=== PATIENT | female | born 2000 | race Caucasian/White ===

== ENCOUNTER 2021-07-23 03:07 | Emergency (ER) | payer OTHER, SELFPAY ==
[2021-07-23 03:13] VITALS: BP 108/58; PULSE 99; RESP 16; TEMP 37.1; O2SAT 100
[2021-07-23] MEDS: LIDOCAINE HCL 2% VISC SOLN 15 ML UDC PO (04:09)
--- NOTE | 2021-07-23 04:22 | ED.GENADULT ---
HPI - General Adult General Chief complaint: Unspecified Stated complaint: THROAT SWELLING History of Present Illness HPI narrative: Patient is a 20-year-old female who presents ER with concerns for a swollen throat. She reports she has been having symptoms since 07/20/2021. She was seen at another hospital and told she had sinusitis and prescribed amoxicillin and ibuprofen. She has not taken any medication due to being concerned that she does not know what they are for. Symptoms are worse when she lays down flat causes her to cough. She has no fevers or chills or sweats. She is able to eat and drink and swallow without difficulty. She has has discomfort when swallowing. No sinus congestion. No known sick contacts. She was not tested for COVID. Related Data Allergies Allergy/AdvReac Type Severity Reaction Status Date / Time No Known Allergies Allergy Unverified 01/17/14 17:49 Review of Systems Review of Systems: All systems reviewed & are unremarkable except as noted in HPI and below Constitutional: Constitutional: Denies chills, Denies fever(s) and Denies weakness ENT: Denies nasal congestion and Denies sore throat Respiratory: Respiratory: Reports cough and Denies dyspnea Gastrointestinal: Gastrointestinal: Denies abdominal pain, Denies nausea and Denies vomiting Exam Narrative: GENERAL: Well-appearing, well-nourished, and in no acute distress. HEAD: Normocephalic, atraumatic. ENT: Mucous membranes moist. Normal-appearing posterior oropharynx without tonsillar hypertrophy or exudate. Uvula midline and nonedematous. NECK: Supple. CHEST: Clear to auscultation. No respiratory distress. HEART: Regular rate and rhythm. Normal peripheral pulses. EXTREMITIES: Normal range of motion. No edema. SKIN: Warm, dry, no rash. NEURO: Alert and oriented x3. Course Course Emergency Course: Resting comfortably. COVID and strep negative. Discharge home. Discussed supportive therapy. Vital Signs Vital signs: Vital Signs Temperature 98.7 F 07/23/21 03:13 Pulse Rate 99 07/23/21 03:13 Respiratory Rate 16 07/23/21 03:13 Blood Pressure 108/58 L 07/23/21 03:13 Pulse Oximetry 100 07/23/21 03:13 Temperature 98.7 F 07/23/21 03:13 Pulse Rate 99 07/23/21 03:13 Respiratory Rate 16 07/23/21 03:13 Blood Pressure 108/58 L 07/23/21 03:13 Pulse Oximetry 100 07/23/21 03:13 Medical Decision Making Vital Signs Vital Signs: Vital Signs Temperature 98.7 F 07/23/21 03:13 Pulse Rate 99 07/23/21 03:13 Respiratory Rate 16 07/23/21 03:13 Blood Pressure 108/58 L 07/23/21 03:13 Pulse Oximetry 100 07/23/21 03:13 Temperature 98.7 F 07/23/21 03:13 Pulse Rate 99 07/23/21 03:13 Respiratory Rate 16 07/23/21 03:13 Blood Pressure 108/58 L 07/23/21 03:13 Pulse Oximetry 100 07/23/21 03:13 Lab Data Labs: Lab Results 07/23/21 Range/Units 03:41 SARS-CoV-2 RNA (RT-PCR) Pending Strep Screen Presumptive Negative *(Reference Range: Negative)* Discharge Plan Discharge Clinical Impression: Upper respiratory infection Patient Disposition: Home, Self-Care Condition: Stable Instructions: Viral Syndrome (ED) Additional Instructions: Return the ER if she cannot breathe, you cannot keep down food or water, you lose consciousness, you have additional concerns. Follow-up/Referrals: María Andrade DO [Physician] - 1 Week PHYSICIAN,OFFICE MANAGER RECEPTIONIST [Primary Care Provider] -
[2021-07-23 04:25] LABS: SARS-CoV-2 RNA PCR Negative
[2021-07-23 04:50] VITALS: BP 120/77; PULSE 72; RESP 18; O2SAT 99
--- NOTE | 2021-07-23 08:11 | PCCCNOTE ---
Addendum entered by Abigail Ya RN 07/23/21 08:53: Phone call received at 0829 from professional development managerGERI Allan that she assisted in getting the car seat base/ car seat in the cab with the patient and they are en route via cab to home. Original Note: Called by cash van salespersonSanjana to assist patient with transportation. Met with patient, and her infant, she states that she has a home but has been trying to find transportation and no one is able to pick her up. Her infant is in a car seat with car seat base that could be connected to a vehicle. Patient feels comfortable with a cab. Called to [employer] cab to make sure they can transport the infant since the mom has the car seat base and car seat. Merchandising Representative states they can do that and they will be there in 20 minutes. Cab voucher written for [address] [place] [phone] per patient request given to cash van salespersonGERI Allan.
== END 2021-07-23 04:54 | disposition home or self-care (01) ==
PROVIDERS: Emergency Provider Emergency Medicine
DX: J06.9 Acute upper respiratory infection, unspecified (principal); Z20.822 Contact with and (suspected) exposure to COVID-19
CPT/HCPCS: 87081; 87880; 99283; C9803; U0003; U0005

== ENCOUNTER 2022-04-06 19:45 | Observation (INO) | payer OTHER, SELFPAY ==
--- NOTE | 2022-04-06 19:50 | OBADM ---
This patient, Davida Juan, admitted to the OB room [facility] for observation. Patient/family oriented to hospital policies and general routines including ID bracelet, bed and alarms, visiting hours, pain management, procedures, bathroom and other care routines, personal items, smoking policy, room service/diet, and visiting hours. Patient/Family are encouraged to report perceived risks to care and to ask questions if they do not understand what they are told or what they should do.
[2022-04-06 20:00] VITALS: BMI 28.3
[2022-04-06 20:15] VITALS: BP 104/53; PULSE 92
[2022-04-06 20:20] LABS: Appearance Urine Cloudy (Clear); Bilirubin Urine Negative (Negative); Blood Urine Trace-intact (Negative); Color Urine Yellow (Yellow); Glucose Urine UA Negative (Negative); Ketones Urine Negative (Negative); Leukocyte Esterase Ur Negative LEU/UL (NEGATIVE); Nitrate Urine Negative (Negative); Protein Urine Negative (Negative); Urobilinogen Urine 0.2 mg/dL (<2.0); pH Urine 8.5 (5.0-9.0)
[2022-04-06 20:30] VITALS: BP 73/46; PULSE 93
--- NOTE | 2022-04-06 20:35 | PC.NURSE ---
Patient requesting to to be checked. Explained to patient that we will only check with a MD order or if patient is having regular contractions. Patient states that she checked herself and she felt like her cervix is open. Discussed the risks for patient checking herself. Patient verb understanding.
[2022-04-06 20:36] LABS: Amorphous Sediment Urine Few; Bacteria Urine Trace /hpf; Squamous Epithelial Cell Urine Many /hpf (Few)
[2022-04-06 20:38] LABS: Add Urine Microscopic? YES
[2022-04-06 20:45] VITALS: BP 102/55; PULSE 89
--- NOTE | 2022-04-27 10:42 | P.PNOB_ITS ---
OB - Triage/Final Diagnosis Visit Information Comments/Additional reasons for admission: I have assessed the risk for this patient, Davida Juan, and determined that she would benefit from observation care. Evaluation Laboratory results: Laboratory Tests 04/06/22 20:11 Urine Color Yellow Urine Appearance Cloudy H Urine pH 8.5 Ur Specific [place] 1.020 Urine Protein Negative Urine Glucose (UA) Negative Urine Ketones Negative Ur Blood (Man) Trace-intact Urine Nitrate Negative Urine Bilirubin Negative Urine Urobilinogen 0.2 Ur Leukocyte Esterase Negative Urine RBC 6-10 H Urine WBC 7-9 H Ur Squamous Epith Cells Many H Amorphous Sediment Few H Urine Bacteria Trace Final Diagnosis (1) False labor: Code(s): O47.9 - False labor, unspecified Status: Acute
== END 2022-04-06 21:08 | disposition home or self-care (01) ==
PROVIDERS: Advanced Practice Midwife; Admitting Provider Obstetrics & Gynecology; Visit Provider Obstetrics & Gynecology
DX: O47.1 False labor at or after 37 completed weeks of gestation (principal); O26.892 Other specified pregnancy related conditions, second trimester; M54.9 Dorsalgia, unspecified; Z3A.27 27 weeks gestation of pregnancy
CPT/HCPCS: 81001; 87086; 87088; G0378; G0379

== ENCOUNTER 2022-09-14 00:54 | Emergency (ER) | payer OTHER, SELFPAY ==
--- NOTE | ~2022-09-14 | XR_ITS ---
Clinical Indication: Chest pain PA and lateral views of the chest: Comparison: None Findings: The lungs are clear, without evidence of focal consolidation or pleural effusion. Cardiome diastinal silhouette is within normal limits. Bones and soft tissues are unremarkable. Impression: Normal chest. Reviewed, dictated and finalized at location . Impression: Normal chest.
[2022-09-14 00:56] VITALS: BP 111/45; PULSE 78; RESP 16; TEMP 36.4; O2SAT 99
--- NOTE | 2022-09-14 00:59 | ECG_ITS ---
Measurements Intervals [place] Rate: 70 P: 46 DC: 149 QRS: 63 QRSD: 91 T: 37 QT: 390 QTc: 422 Interpretive Statements SINUS RHYTHM WITH SINUS ARRHYTHMIA NORMAL ECG NO PREVIOUS ECG AVAILABLE FOR COMPARISON Electronically Signed On 09-14-2022 10:26:12 CDT by Hector Easley M.D.
[2022-09-14 01:06] VITALS: PULSE 72; PULSE 74; RESP 20; TEMP 36.3; O2SAT 100; O2SAT 98
[2022-09-14 01:35] VITALS: BP 104/58; PULSE 61; RESP 20; O2SAT 100
--- NOTE | 2022-09-14 01:38 | ED.CHESTPAIN ---
HPI - Chest Pain General Chief Complaint: Chest Pain Stated Complaint: chest pain Time Seen by Provider: 09/14/22 01:00 Source: patient, RN notes reviewed and old records reviewed Mode of arrival: ambulatory Limitations: no limitations History of Present Illness HPI narrative: This is a 21 year old female 2 months who presents for evaluation of chest pain and shortness of breath. She reports having chest pain for 1 week. She describes pain as sharp pain that worsen with breathing. She also reports having chest pain on inspiration. She feels short of breath as well because she has pain with taking a deep breath. She denies history of DVT/PE. She denies leg swelling. She denies fever, chills. Related Data Allergies Allergy/AdvReac Type Severity Reaction Status Date / Time No Known Allergies Allergy Verified 09/14/22 00:55 Review of Systems Constitutional: Constitutional: Denies weakness Cardiovascular: Cardiovascular: Reports chest pain, Denies syncope, Denies rapid heart rate, Denies irregular heart rhythm, Denies leg edema and Reports dyspnea Respiratory: Respiratory: Denies chest congestion, Denies hemoptysis, Denies excessive phlegm production and Reports dyspnea Gastrointestinal: Gastrointestinal: Denies abdominal pain, Denies hematochezia, Denies diarrhea and Denies vomiting Genitourinary: Genitourinary: Denies hematuria and Denies dysuria Musculoskeletal: Musculoskeletal: Denies joint swelling, Denies loss of height and Denies muscle weakness Neurologic: Denies syncope, Denies focal weakness and Denies weakness PMFSH Past Medical History Medical History (Updated 09/14/22 @ 02:48 by Marina Campbell MD) Patient denies medical problems Social History Social History (Updated 09/14/22 @ 01:39 by Marina Campbell MD) Smoking packs per day: 0.5 Smoking cigarettes per day: 10.0 Smoking status: Current every day smoker Exam Const: General: no acute distress and alert Nutritional Appearance: well nourished Orientation/consciousness: patient oriented x3 HENMT: Head: normal to inspection Throat: posterior oropharynx normal Eyes: EOM: EOMs intact bilaterally Neck: Neck: normal visual inspection Chest: Chest palpation & inspection: tenderness sternum and costochondral junction Resp: Effort & Inspection: normal respiratory effort Auscultation: clear to auscultation bilaterally Cardio: Rate: regular rate Rhythm: regular rhythm Heart sounds: no murmurs GI: GI Palp: Yes Soft to palpation, No Tenderness to palpation present (GI), No Guarding due to palpation present (GI) and No Rigid due to palpation Auscultation: normal bowel sounds Skin: General skin exam: normal color Rashes: no rashes Wounds: no wounds Neuro: General: patient oriented x3, moves all extremities and CN's II-XI intact bilaterally Extrem: General: normal to inspection Psych: Mental Status: mental status grossly normal Affect: normal affect Attitude: cooperative Course Reevaluation(s) Reevaluation #1: I Discussed with patient that labs are unremarkable. dimer is negative. She refused toradol. I discussed with patient that her symptoms appear to be chest wall related and treatment would be NSAIDS. she states she can take NSAIDS but she does not like taking medications. Date: 09/14/22 Time: 02:45 Vital Signs Vital signs: Vital Signs Temperature 97.6 F 09/14/22 00:56 Pulse Rate 78 09/14/22 00:56 Respiratory Rate 16 09/14/22 00:56 Blood Pressure 111/45 L 09/14/22 00:56 Pulse Oximetry 99 09/14/22 00:56 Oxygen Delivery Room Air 09/14/22 00:56 Temperature 98.1 F 09/14/22 03:01 Pulse Rate 62 09/14/22 03:01 Respiratory Rate 16 09/14/22 03:01 Blood Pressure 107/49 L 09/14/22 03:01 Pulse Oximetry 100 09/14/22 03:01 Oxygen Delivery Room Air 09/14/22 01:06 MDM - Chest Pain MDM Narrative Medical decision making narrative: EKG ordered. chest xray ordered. lab
--- NOTE | 2022-09-14 01:46 | PC.NURSE ---
Patient refused Toradol and states I was told by staff at [facility] that this could kill me with GI issues .
[2022-09-14 01:53] LABS: Basophils Percent Auto 0.5 % (0.2-1.2); Eosinophils Absolute Auto 0.2 K/mm3 (0-0.3); Eosinophils Percent Auto 2.5 % (0-4.4); Hematocrit 33.7 % (37.0-47.0); Hemoglobin 10.7 g/dL (12.0-15.0); Immature Granulocyte Absolute 0.02 K/mm3 (0.00-0.031); Immature Granulocyte Percent A 0.3 % (0-0.5); Mean Corpuscular HGB Conc 31.8 g/dl (32-36); Mean Corpuscular Hemoglobin 25.9 pg (26-34); Mean Corpuscular Volume 81.6 fl (80-100); Mean Platelet Volume 11.1 fl (7.4-10.4); Monocytes Absolute Auto 0.6 K/mm3 (0.1-0.6); Neutrophils Absolute Auto 3.8 K/mm3 (1.3-6.7); Neutrophils Percent Auto 47.7 % (45.5-73.1); Platelet Count Result 347 k/mm3 (150-375); Red Blood Count 4.13 M/mm3 (4.2-5.4); Red Cell Distribution Width 14.9 % (11.5-14.5); White Blood Count 7.9 K/mm3 (4.5-10.0)
[2022-09-14 02:04] LABS: Alanine Aminotransferase 21 U/L (6-35); Albumin Level 4.1 g/dL (3.5-5.1); Alkaline Phosphatase 69 U/L (38-126); Anion Gap 8 mmol/L (8-16); Aspartate Amino Transferase 23 U/L (14-36); Bilirubin,Total 0.2 mg/dL (0.2-1.3); Blood Urea Nitrogen 19 mg/dL (7-17); Calcium 8.8 mg/dL (8.4-10.2); Carbon Dioxide 24 mmol/L (22-30); Chloride 105 mmol/L (98-107); Estimated CRCL calculation 106 ml/min; Estimated Glomerular Filt Rate > 60; Glucose 82 mg/dL (65-110); Lipase 41 U/L (23-300); Potassium 3.6 mmol/L (3.4-5.0); Sodium 137 mmol/L (137-145)
[2022-09-14 02:06] LABS: Partial Thromboplastin Time 30.7 SECONDS (22.3-36.8); Prothrombin Time 13.6 Seconds (11.1-14.7)
[2022-09-14 02:15] LABS: Troponin I < 0.012 ng/mL (0.000-0.034)
[2022-09-14 02:27] LABS: D Dimer < 0.27 ug/mL (<0.48)
[2022-09-14 03:01] VITALS: BP 107/49; PULSE 62; RESP 16; TEMP 36.7; O2SAT 100
--- NOTE | 2022-09-14 09:15 | PCCCNOTE ---
Phone call received from charge auditor that patient has not been able to secure a ride and is asking to speak with care coordination. Met with patient in ER family services room. She states that her ride would not pickling operator the facebook messenger call, she does not have a phone number for that person. She calls to a family member who cannot pick her up. Patient has her and toddler in the family services room with her and they are sleeping. She declined bus tokens from the tankage supervisor since the stop is not near her house and she would have to carry both of the kids and their carseats. Patient does not have any money to pay for a cab. Cab voucher written with address verbalized by patient and confirmed with patient. [employer] cab called and will be at [place] in 20 minutes.
== END 2022-09-14 03:02 | disposition home or self-care (01) ==
PROVIDERS: Emergency Provider General Practice; PCP Internal Medicine Infectious Disease
DX: R07.89 Other chest pain (principal); F17.210 Nicotine dependence, cigarettes, uncomplicated
CPT/HCPCS: 36415; 71046; 80053; 83690; 84484; 85025; 85380; 85610; 85730; 93005; 96374; 99284; J1885

== ENCOUNTER 2023-03-11 00:11 | Emergency (ER) | payer OTHER, SELFPAY ==
[2023-03-11 00:12] VITALS: BP 118/72; PULSE 114; RESP 16; TEMP 37
[2023-03-11 00:30] VITALS: BP 112/69; BP 116/69; BP 124/68; PULSE 81; PULSE 82
[2023-03-11 01:26] LABS: Beta HCG Quantitative < 2.39 mIU/ML
--- NOTE | 2023-03-11 01:36 | ED.FEMALEGU ---
HPI - Female Genitourinary General Chief complaint: Vaginal Bleeding <Griselda Lazar PA-C - Last Filed: 03/13/23 17:07> Stated complaint: vaginal bleeding <TANIA Lindsay Last Filed: 03/13/23 17:07> Time Seen by Provider: 03/11/23 01:11 <Griselda Lazar PA-C - Last Filed: 03/13/23 17:07> Source: patient <TANIA Lindsay Last Filed: 03/13/23 17:07> Mode of arrival: EMS <TANIA Lindsay Last Filed: 03/13/23 17:07> Limitations: no limitations <TANIA Lindsay Last Filed: 03/13/23 17:07> History of Present Illness HPI Narrative: This is a 22 year old female that presents to the ER for abnormal uterine bleeding. Ongoing over the last several months. Reports frequent periods. She is not on any control. She would like to be tested for STDs. Denies fever, dysuria or hematuria. <Griselda Lazar PA-C - Last Filed: 03/13/23 17:07> Related Data Allergies/Adverse reactions: Allergies Allergy/AdvReac Type Severity Reaction Status Date / Time No Known Allergies Allergy Verified 09/14/22 00:55 <Griselda Lazar PA-C - Last Filed: 03/13/23 17:07> Review of Systems Review of Systems: CONSTITUTIONAL: Denies fever GASTROINTESTINAL: Denies abdominal pain, nausea, vomiting GENITOURINARY: Denies dysuria or hematuria. SKIN: Denies rash <Griselda Lazar PA-C - Last Filed: 03/13/23 17:07> All systems reviewed & are unremarkable except as noted in HPI and below <Griselda Lazar PA-C - Last Filed: 03/13/23 17:07> [facility] Past Medical History Medical History: Medical History (Updated 03/12/23 @ 00:00 by Background Daemon) Patient denies medical problems <TANIA Lindsay Last Filed: 03/13/23 17:07> Social History Social History: Social History (Updated 09/14/22 @ 01:39 by Marina Campbell MD) Smoking packs per day: 0.5 Smoking cigarettes per day: 10.0 Smoking status: Current every day smoker <Griselda Lazar PA-C - Last Filed: 03/13/23 17:07> Exam Narrative: GENERAL: Well-appearing, well-nourished, and in no acute distress. HEAD: Normocephalic, atraumatic. EYES: EOMI. CHEST: Clear to auscultation. No respiratory distress. No wheezes rales or rhonchi HEART: Regular rate and rhythm. No murmur heard. Normal peripheral pulses. ABDOMEN: Soft, nontender, nondistended, normal active bowel sounds. EXTREMITIES: Normal range of motion. No edema. SKIN: Warm, dry, no rash. NEURO: No focal deficits. Alert and oriented x3. PSYCH: Normal mood and affect PELVIC: Normal external genitalia. Normal appearing cervix. Small amount of dark red blood in the vaginal vault <Griselda Lazar PA-C - Last Filed: 03/13/23 17:07> Course Course Emergency Course: Patient updated on her workup and agrees with plan of care <Griselda Lazar PA-C - Last Filed: 03/13/23 17:07> Vital Signs Vital signs: Vital Signs Temperature 98.6 F 03/11/23 00:12 Pulse Rate 114 H 03/11/23 00:12 Respiratory Rate 16 03/11/23 00:12 Blood Pressure 118/72 03/11/23 00:12 Oxygen Delivery Room Air 03/11/23 00:12 Temperature 98.3 F 03/11/23 04:34 Pulse Rate 68 03/11/23 04:34 Respiratory Rate 15 03/11/23 04:34 Blood Pressure 126/76 03/11/23 04:34 Pulse Oximetry 100 03/11/23 04:34 Oxygen Delivery Room Air 03/11/23 00:12 <Griselda Lazar PA-C - Last Filed: 03/13/23 17:07> Vital Signs Temperature 98.6 F 03/11/23 00:12 Pulse Rate 114 H 03/11/23 00:12 Respiratory Rate 16 03/11/23 00:12 Blood Pressure 118/72 03/11/23 00:12 Oxygen Delivery Room Air 03/11/23 00:12 Temperature 98.3 F 03/11/23 04:34 Pulse Rate 68 03/11/23 04:34 Respiratory Rate 15 03/11/23 04:34 Blood Pressure 126/76 03/11/23 04:34 Pulse Oximetry 100 03/11/23 04:34 Oxygen Delivery Room Air 03/11/23 00:12 <Robert Brand MD - Last Filed: 03/11/23 04:23> MDM - Female Genitourinary MDM
[2023-03-11 01:47] LABS: Basophils Absolute Auto 0.1 K/mm3 (0.0-0.1); Basophils Percent Auto 0.5 % (0.2-1.2); Eosinophils Absolute Auto 0.2 K/mm3 (0-0.3); Eosinophils Percent Auto 2.2 % (0-4.4); Hematocrit 37.2 % (37.0-47.0); Hemoglobin 11.6 g/dL (12.0-15.0); Immature Granulocyte Absolute 0.05 K/mm3 (0.00-0.031); Immature Granulocyte Percent A 0.5 % (0-0.5); Lymphocytes Absolute Auto 2.69 K/mm3 (0.9-3.2); Lymphocytes Percent Auto 27.7 % (18.3-44.2); Mean Corpuscular HGB Conc 31.2 g/dl (32-36); Mean Corpuscular Volume 83.2 fl (80-100); Mean Platelet Volume 10.3 fl (7.4-10.4); Monocytes Absolute Auto 0.7 K/mm3 (0.1-0.6); Monocytes Percent Auto 7.5 % (2.6-8.5); Neutrophils Percent Auto 61.6 % (45.5-73.1); Platelet Count Result 308 k/mm3 (150-375); Red Blood Count 4.47 M/mm3 (4.2-5.4); White Blood Count 9.7 K/mm3 (4.5-10.0)
[2023-03-11 02:17] VITALS: BP 125/69; PULSE 68; RESP 15; TEMP 36.6; O2SAT 99
[2023-03-11 02:48] LABS: Appearance Urine Turbid (Clear); Color Urine Light Red (Yellow)
[2023-03-11 02:49] LABS: Bilirubin Urine 1+ (Negative); Blood Urine 3+ (Negative); Glucose Urine UA Negative (Negative); Ketones Urine Negative (Negative); Leukocyte Esterase Ur 1+ LEU/UL (Negative); Nitrate Urine Negative (Negative); Protein Urine 1+ mg/dL (Negative); Specific Grav Ur 1.023 (1.001-1.035); Urobilinogen Urine 0.2 mg/dL (<2.0)
[2023-03-11 02:50] LABS: RBC Urine >100 /hpf (0-2)
[2023-03-11 02:51] LABS: Bacteria Urine Trace /hpf; Non Pathogenic Casts Present; Squamous Epithelial Cell Urine Occasional /hpf (Few)
[2023-03-11 02:51] LABS: Trichomonas Vag PCR NOT DETECTED (NOT DETECTE)
[2023-03-11 02:52] LABS: Add Urine Microscopic? YES
[2023-03-11 04:19] LABS: Chlamydia trachomatis NOT DETECTED (NOT DETECTE); Neisseria gonorrhoeae PCR NOT DETECTED (NOT DETECTE)
[2023-03-11 04:34] VITALS: BP 126/76; PULSE 68; RESP 15; TEMP 36.8; O2SAT 100
== END 2023-03-11 04:35 | disposition home or self-care (01) ==
PROVIDERS: Emergency Medicine; Emergency Provider Physician Assistant; PCP Internal Medicine Infectious Disease
DX: N93.8 Other specified abnormal uterine and vaginal bleeding (principal); F17.210 Nicotine dependence, cigarettes, uncomplicated
CPT/HCPCS: 36415; 81001; 84702; 85025; 86850; 86900; 86901; 87070; 87086; 87491; 87591; 87661; 99284

== ENCOUNTER 2023-03-15 00:27 | Emergency (ER) | payer OTHER, SELFPAY ==
[2023-03-15 00:26] VITALS: BP 127/71; PULSE 99; RESP 19; TEMP 36.6; O2SAT 100
[2023-03-15 00:32] VITALS: BP 127/71; PULSE 99; RESP 18; TEMP 36.6; O2SAT 100
[2023-03-15 01:08] LABS: Basophils Percent Auto 0.5 % (0.2-1.2); Eosinophils Absolute Auto 0.2 K/mm3 (0-0.3); Eosinophils Percent Auto 2.5 % (0-4.4); Hematocrit 36.9 % (37.0-47.0); Hemoglobin 11.6 g/dL (12.0-15.0); Immature Granulocyte Absolute 0.04 K/mm3 (0.00-0.031); Immature Granulocyte Percent A 0.5 % (0-0.5); Lymphocytes Absolute Auto 2.78 K/mm3 (0.9-3.2); Lymphocytes Percent Auto 33.7 % (18.3-44.2); Mean Corpuscular HGB Conc 31.4 g/dl (32-36); Mean Corpuscular Hemoglobin 26.2 pg (26-34); Mean Corpuscular Volume 83.3 fl (80-100); Mean Platelet Volume 10.3 fl (7.4-10.4); Monocytes Absolute Auto 0.4 K/mm3 (0.1-0.6); Monocytes Percent Auto 5.3 % (2.6-8.5); Neutrophils Absolute Auto 4.7 K/mm3 (1.3-6.7); Neutrophils Percent Auto 57.5 % (45.5-73.1); Platelet Count Result 311 k/mm3 (150-375); Red Blood Count 4.43 M/mm3 (4.2-5.4); Red Cell Distribution Width 14.3 % (11.5-14.5); White Blood Count 8.3 K/mm3 (4.5-10.0)
--- NOTE | 2023-03-15 01:58 | ED.GENADULT ---
HPI - General Adult General Chief complaint: Vaginal Bleeding Stated complaint: VAG BLEED, DIZZY Time Seen by Provider: 03/15/23 01:34 History of Present Illness HPI narrative: Patient 20-year-old female who presents emergency department with chief complaint of vaginal bleeding. The patient reports that she has been having bleeding for several weeks reports that she has blood that comes out whenever she stands up and reports that she has passed some clots. Patient reports that whenever she stands up she does saturate a pad and then has to change the pad. The patient reports that she has been seen in the emergency department that both [facility] and our facility and is concerned that she may have been and is still bleeding even though she has had negative test. Related Data Allergies Allergy/AdvReac Type Severity Reaction Status Date / Time No Known Allergies Allergy Verified 09/14/22 00:55 Review of Systems Review of Systems: A 10 system review of systems was completed on the patient and is negative except for what is stated in the HPI. Nursing and ancillary documentation was reviewed. [facility] Past Medical History Medical History Patient denies medical problems Social History Social History Smoking packs per day: 0.5 Smoking cigarettes per day: 10.0 Smoking status: Current every day smoker Exam Narrative: GENERAL: Well-appearing, well-nourished, and in no acute distress. HEAD: Normocephalic, atraumatic. EYES: PERRLA and EOMI. ENT: Nares clear, no rhinorrhea or epistaxis. Mucous membranes moist. NECK: Supple. CHEST: Clear to auscultation. No respiratory distress. HEART: Regular rate and rhythm. No murmur heard. Normal peripheral pulses. ABDOMEN: Soft, nontender, nondistended, normal active bowel sounds. EXTREMITIES: Normal range of motion. No edema. SKIN: Warm, dry, no rash. NEURO: No focal deficits. Alert and oriented x3. PSYCH: Normal mood and affect. Course Vital Signs Vital signs: Vital Signs Temperature 36.6 C 03/15/23 00:26 Pulse Rate 99 03/15/23 00:26 Respiratory Rate 19 03/15/23 00:26 Blood Pressure 127/71 03/15/23 00:26 Pulse Oximetry 100 03/15/23 00:26 Oxygen Delivery Room Air 03/15/23 00:26 Temperature 36.6 C 03/15/23 00:32 Pulse Rate 99 03/15/23 00:32 Respiratory Rate 18 03/15/23 00:32 Blood Pressure 127/71 03/15/23 00:32 Pulse Oximetry 100 03/15/23 00:32 Oxygen Delivery Room Air 03/15/23 00:26 Medical Decision Making MDM Narrative Medical decision making narrative: Differential diagnosis includes dysfunctional uterine bleeding, menorrhagia, anemia, miscarriage, Laboratory studies were obtained on the patient patient had a bedside test that was negative in the emergency department CBC was performed which showed a white count of 8.3 hemoglobin was 11.6 platelet count was 311. Patient had no bands The patient's hemoglobin was compared to her previous visit which was unchanged. At this time the patient can be discharged home to follow-up with her radiator core tester Vital Signs Vital Signs: Vital Signs Temperature 36.6 C 03/15/23 00:26 Pulse Rate 99 03/15/23 00:26 Respiratory Rate 19 03/15/23 00:26 Blood Pressure 127/71 03/15/23 00:26 Pulse Oximetry 100 03/15/23 00:26 Oxygen Delivery Room Air 03/15/23 00:26 Temperature 36.6 C 03/15/23 00:32 Pulse Rate 99 03/15/23 00:32 Respiratory Rate 18 03/15/23 00:32 Blood Pressure 127/71 03/15/23 00:32 Pulse Oximetry 100 03/15/23 00:32 Oxygen Delivery Room Air 03/15/23 00:26 Lab Data 03/15/23 00:56 Labs: Lab Results 03/15/23 Range/Units 00:56 WBC 8.3 (4.5-10.0) K/mm3 RBC 4.43 (4.2-5.4) M/mm3 Hgb 11.6 L (12.0-15.0) g/dL Hct 36.9 L (37.0-47.0) % MCV 8
== END 2023-03-15 02:05 | disposition home or self-care (01) ==
PROVIDERS: Physician Assistant; Emergency Provider Emergency Medicine; PCP Internal Medicine Infectious Disease
DX: N93.8 Other specified abnormal uterine and vaginal bleeding (principal); F17.210 Nicotine dependence, cigarettes, uncomplicated
CPT/HCPCS: 36415; 81025; 85025; 99283

== ENCOUNTER 2023-03-22 16:17 | Emergency (ER) | payer OTHER, SELFPAY ==
[2023-03-22 17:02] VITALS: BP 123/63; PULSE 97; RESP 18; TEMP 36.2; O2SAT 99
--- NOTE | 2023-03-22 17:26 | ED.URI ---
HPI - URI/Sore Throat General Chief Complaint: Upper Respiratory Infection Stated Complaint: Left Ear Irritation Time Seen by Provider: 03/22/23 17:30 Source: patient and RN notes reviewed Mode of arrival: ambulatory Limitations: no limitations History of Present Illness HPI Narrative: 22-year-old female presents with multiple concerns. She reports she has had chronic sinus issues, she was taking Augmentin in February for sinus infection, it did not help her symptoms. She reports her primary doctor is sending her to see ENT, she has an appointment next week. She reports she ?needs something for the pain before then?. She also reports foul-smelling vaginal discharge. She denies abdominal pain or vaginal itching. She reports she had been on medication for bacterial vaginosis in February and when she was prescribed an antibiotic for sinusitis she stops taking the medication for bacterial vaginosis. MD elicited complaint: sinus pain Related Data Allergies Allergy/AdvReac Type Severity Reaction Status Date / Time No Known Allergies Allergy Verified 03/22/23 16:59 Review of Systems Review of Systems: CONSTITUTIONAL: Denies malaise, chills, sweats, or fever. EYES: Denies visual changes, redness, or discharge. ENT: Reports rhinorrhea, congestion, sinus pain, otalgia CARDIOVASCULAR: Denies chest pain, palpitations, or edema. RESPIRATORY: Denies cough. Denies dyspnea. GASTROINTESTINAL: Denies abdominal pain, nausea, vomiting, diarrhea SKIN: Denies rash or itching. MUSCULOSKELETAL: Denies myalgia. NEUROLOGIC: Denies headache. All systems reviewed & are unremarkable except as noted in HPI and below PMFSH Past Medical History Medical History Patient denies medical problems Social History Social History Smoking packs per day: 0.5 Smoking cigarettes per day: 10.0 Smoking status: Current every day smoker Comments At time of signature, agree with nursing past medical, surgical, social and family history. There is no relevant family history pertinent to the presenting complaint Exam Narrative: GENERAL: Well-appearing, well-nourished, and in no acute distress. HEAD: Normocephalic EYES: PERRLA, conjunctivae clear ENT: Nares clear, turbinates erythematous, no discharge noted. Mucous membranes moist. TM pearly lenz with dull light reflex bilaterally; no tragal tenderness. Oropharynx not erythematous without lesions. Tonsils not enlarged and without exudate, no drooling, no hoarseness, no trismus, uvula midline. NECK: Supple. No lymphadenopathy CHEST: Clear to auscultation, breath sounds equal. No wheezing, rhonchi, rales, or stridor. No respiratory distress, speaks in full sentences. HEART: Regular rate and rhythm. No murmur heard. SKIN: Warm, dry, no rash. NEURO: Alert and oriented x3. PSYCH: Normal mood and affect Course Course Emergency Course: Patient is aware of diagnosis, understands and agrees to treatment plan. Anticipatory guidance given. Patient agrees to follow-up as directed and is aware of reasons to seek care at the emergency department. Portions of this record may have been created with voice recognition software Level of Care: Express Care Visit Vital Signs Vital signs: Vital Signs Temperature 97.2 F L 03/22/23 17:02 Pulse Rate 97 03/22/23 17:02 Respiratory Rate 18 03/22/23 17:02 Blood Pressure 123/63 03/22/23 17:02 Pulse Oximetry 99 03/22/23 17:02 Oxygen Delivery Room Air 03/22/23 17:02 Temperature 97.2 F L 03/22/23 17:02 Pulse Rate 97 03/22/23 17:02 Respiratory Rate 18 03/22/23 17:02 Blood Pressure 123/63 03/22/23 17:02 Pulse Oximetry 99 03/22/23 17:02 Oxygen Delivery Room Air 03/22/23 17:02 Reviewed. MDM - URI/Sore Throat MDM Narrative Medical decision making narrative: Differential diagnosis considered: Ybarra virus, s
== END 2023-03-22 17:50 | disposition home or self-care (01) ==
PROVIDERS: Emergency Provider Nurse Practitioner; PCP Internal Medicine Infectious Disease
DX: J34.89 Other specified disorders of nose and nasal sinuses (principal); N89.8 Other specified noninflammatory disorders of vagina; F17.210 Nicotine dependence, cigarettes, uncomplicated
CPT/HCPCS: 99213; G0463

== ENCOUNTER 2023-05-05 19:45 | Emergency (ER) | payer OTHER, SELFPAY ==
--- NOTE | ~2023-05-05 | XR_ITS ---
EXAMINATION: XR chest 1V portable Exam Date/Time: 05/05/2023 21:29 CDT HISTORY: cough Comparison: 09/14/2022. RESULT: Lines, tubes, and devices: None. Lungs and pleura: Clear. Cardiomediastinal silhouette: Stable. Other: No acute osseous or upper abdominal finding. IMPRESSION: No acute cardiopulmonary process. Reviewed, dictated and finalized at location K.
[2023-05-05 19:42] VITALS: BP 115/69; PULSE 80; RESP 16; TEMP 36.9; O2SAT 100
[2023-05-05 19:48] VITALS: BP 115/69; PULSE 88; PULSE 89; RESP 15; TEMP 36.9; O2SAT 100
--- NOTE | 2023-05-05 19:52 | ECG_ITS ---
Measurements Intervals [place] Rate: 77 P: 61 RI: 146 QRS: 76 QRSD: 94 T: 53 QT: 377 QTc: 429 Interpretive Statements SINUS RHYTHM WITH SINUS ARRHYTHMIA NORMAL ECG COMPARED TO ECG 09/14/2022 01:05:59 NO SIGNIFICANT CHANGES Electronically Signed On 05-06-2023 6:24:03 CDT by Damien Mccarthy D.O.
[2023-05-05 20:00] LABS: Basophils Percent Auto 0.6 % (0.2-1.2); Eosinophils Absolute Auto 0.2 K/mm3 (0-0.3); Hematocrit 33.7 % (37.0-47.0); Hemoglobin 10.4 g/dL (12.0-15.0); Immature Granulocyte Absolute 0.02 K/mm3 (0.00-0.031); Immature Granulocyte Percent A 0.4 % (0-0.5); Lymphocytes Absolute Auto 1.46 K/mm3 (0.9-3.2); Lymphocytes Percent Auto 27.8 % (18.3-44.2); Mean Corpuscular HGB Conc 30.9 g/dl (32-36); Mean Corpuscular Hemoglobin 25.7 pg (26-34); Mean Corpuscular Volume 83.2 fl (80-100); Monocytes Absolute Auto 0.5 K/mm3 (0.1-0.6); Monocytes Percent Auto 9.7 % (2.6-8.5); Neutrophils Percent Auto 57.5 % (45.5-73.1); Platelet Count Result 225 k/mm3 (150-375); Red Blood Count 4.05 M/mm3 (4.2-5.4); Red Cell Distribution Width 14.4 % (11.5-14.5); White Blood Count 5.3 K/mm3 (4.5-10.0)
--- NOTE | 2023-05-05 20:13 | ED.DIZZY ---
HPI - Dizziness General Chief Complaint: Dizziness <Randal Moscoso MD - Last Filed: 05/06/23 19:21> Stated Complaint: DIZZINESS UPON AMBULATION <Randal Moscoso MD - Last Filed: 05/06/23 19:21> Time Seen by Provider: 05/05/23 19:53 <Randal Moscoso MD - Last Filed: 05/06/23 19:21> History of Present Illness HPI Narrative: 22-year-old female presenting to the emergency department for evaluation of 3 days of decreased p.o. intake nausea and dizziness. Patient states all the symptoms started when she started her period a few days ago. <Randal Moscoso MD - Last Filed: 05/06/23 19:21> Related Data Allergies/Adverse Reactions: Allergies Allergy/AdvReac Type Severity Reaction Status Date / Time No Known Allergies Allergy Verified 05/05/23 19:51 <Randal Moscoso MD - Last Filed: 05/06/23 19:21> Review of Systems Review of Systems: All systems reviewed & are unremarkable except as noted in HPI and below <Randal Moscoso MD - Last Filed: 05/06/23 19:21> PMFSH Past Medical History Medical History: Medical History Patient denies medical problems <Randal Moscoso MD - Last Filed: 05/06/23 19:21> Social History Social History: Social History Smoking packs per day: 0.5 Smoking cigarettes per day: 10.0 Smoking status: Current every day smoker <Randal Moscoso MD - Last Filed: 05/06/23 19:21> Exam Narrative: APPEARANCE: Well appearing, no pain, no distress, well-nourished. HEAD: normocephalic, atraumatic. EYES: PERRLA/EOMI, conjunctivae clear. NOSE: Normal no drainage EARS:TMS clear with good light reflex. THROAT: Pharynx clear, no exudate. NECK: Supple. No adenopathy, no masses. RESPIRATORY: Airway patent, respirations nonlabored. Clear to auscultation bilaterally, no rales, rhonchi, wheezing. CARDIOVASCULAR: Regular rate and rhythm without murmurs rubs or gallops. ABDOMINAL: Soft, nontender, nondistended, normal bowel sounds MUSCULOSKELETAL: Moves all extremities. Strength/ROM intact, No edema, No calf tenderness. NEURO: Alert. Cranial nerves II through XII intact. Good gait. Good coordination SKIN: Warm, dry. Normal Color <Randal Moscoso MD - Last Filed: 05/06/23 19:21> Course Course Emergency Course: 2204: assumed care of the patient from Dr. Moscoso Pending chest x-ray and urinalysis. Chest x-ray is normal. UA shows blood but no evidence of infection or other significant findings. Currently on menstrual cycle which is consistent with blood on urinalysis. Evaluated the patient. Remains with normal vitals. Discussed following up with PCP /OB Discharged in stable condition. <Justin Marinelli PA-C - Last Filed: 05/05/23 22:07> Vital Signs Vital signs: Vital Signs Temperature 98.4 F 05/05/23 19:42 Pulse Rate 80 05/05/23 19:42 Respiratory Rate 16 05/05/23 19:42 Blood Pressure 115/69 05/05/23 19:42 Pulse Oximetry 100 05/05/23 19:42 Oxygen Delivery Room Air 05/05/23 19:42 Temperature 98.4 F 05/05/23 19:48 Pulse Rate 85 05/05/23 22:23 Respiratory Rate 18 05/05/23 22:23 Blood Pressure 107/61 05/05/23 22:23 Pulse Oximetry 98 05/05/23 22:23 Oxygen Delivery Room Air 05/05/23 19:42 <Randal Moscoso MD - Last Filed: 05/06/23 19:21> Vital Signs Temperature 98.4 F 05/05/23 19:42 Pulse Rate 80 05/05/23 19:42 Respiratory Rate 16 05/05/23 19:42 Blood Pressure 115/69 05/05/23 19:42 Pulse Oximetry 100 05/05/23 19:42 Oxygen Delivery Room Air 05/05/23 19:42 Temperature 98.4 F 05/05/23 19:48 Pulse Rate 85 05/05/23 22:23 Respiratory Rate 18 05/05/23 22:23 Blood Pressure 107/61 05/05/23 22:23 Pulse Oximetry 98 05/05/23 22:23 Oxygen Delivery Room Air 05/05/23 19:42 <Justin Marinelli PA-C - Last Filed: 05/05/23 22:07
[2023-05-05 20:15] LABS: Alanine Aminotransferase 13 U/L (6-35); Albumin Level 4.1 g/dL (3.5-5.1); Alkaline Phosphatase 60 U/L (38-126); Anion Gap 6 mmol/L (4-12); Aspartate Amino Transferase 18 U/L (14-36); Bilirubin,Total 0.3 mg/dL (0.2-1.3); Blood Urea Nitrogen 12 mg/dL (7-17); Calcium 8.6 mg/dL (8.4-10.2); Carbon Dioxide 24 mmol/L (22-30); Chloride 107 mmol/L (98-107); Estimated CRCL calculation 108 ml/min; Estimated Glomerular Filt Rate > 60; Glucose 106 mg/dL (65-110); Potassium 3.6 mmol/L (3.4-5.0); Sodium 137 mmol/L (137-145)
[2023-05-05] MEDS: SODIUM CHLORIDE 0.9% IV 1,000 ML 999 ML IV CONT (20:21)
[2023-05-05 21:03] LABS: Influenza A QL RT-PCR Negative (Negative); Influenza B QL RT-PCR Negative (Negative); RSV RNA, RT-PCR Negative (Negative); SARS-CoV-2 RNA PCR Negative (Negative)
[2023-05-05 21:18] VITALS: BP 99/58; PULSE 83; RESP 19; O2SAT 100
[2023-05-05 21:45] LABS: Bacteria Urine None Seen /hpf; Non Pathogenic Casts 0-2; RBC Urine >100 /hpf (0-2); Squamous Epithelial Cell Urine None Seen /hpf (Few); WBC Urine 0-5 /hpf (0-3)
[2023-05-05 21:49] LABS: Color Urine Amber (Yellow)
[2023-05-05 21:50] LABS: Appearance Urine Sl Cloudy (Clear); Bilirubin Urine Negative (Negative); Blood Urine 3+ (Negative); Glucose Urine UA Negative (Negative); Ketones Urine Negative (Negative); Nitrate Urine Negative (Negative); Protein Urine Negative (Negative)
[2023-05-05 21:51] LABS: Add Urine Microscopic? YES; Leukocyte Esterase Ur Negative LEU/UL (Negative); Urobilinogen Urine 0.2 mg/dL (<2.0)
[2023-05-05 22:23] VITALS: BP 107/61; PULSE 85; RESP 18; O2SAT 98
== END 2023-05-05 22:23 | disposition home or self-care (01) ==
PROVIDERS: Emergency Medicine; Emergency Provider Emergency Medicine; PCP Internal Medicine Infectious Disease
DX: R53.1 Weakness (principal); R05.9 Cough, unspecified; R11.2 Nausea with vomiting, unspecified; F17.210 Nicotine dependence, cigarettes, uncomplicated
CPT/HCPCS: 36415; 71045; 80053; 81001; 81025; 85025; 87637; 93005; 96360; 96361; 99284; J7030

== ENCOUNTER 2023-05-07 19:09 | Emergency (ER) | payer OTHER, SELFPAY ==
[2023-05-07 19:24] VITALS: BP 115/40; PULSE 98; RESP 16; TEMP 36.3; O2SAT 100
--- NOTE | 2023-05-07 19:28 | ECG_ITS ---
Measurements Intervals [place] Rate: 92 P: 54 [place]: 150 QRS: 70 QRSD: 89 T: 44 QT: 357 QTc: 442 Interpretive Statements SINUS RHYTHM NORMAL ECG COMPARED TO ECG 05/05/2023 19:47:44 NO SIGNIFICANT CHANGES Electronically Signed On 05-08-2023 7:27:27 CDT by Damien Mccarthy D.O.
--- NOTE | 2023-05-07 19:45 | PC.NURSE ---
pt refusing xray at this time. Pt requesting a chest ct.
[2023-05-07 19:47] VITALS: BP 116/63; PULSE 91; RESP 19; O2SAT 100
[2023-05-07 19:48] LABS: Basophils Percent Auto 0.7 % (0.2-1.2); Eosinophils Absolute Auto 0.2 K/mm3 (0-0.3); Eosinophils Percent Auto 4.6 % (0-4.4); Hemoglobin 11.4 g/dL (12.0-15.0); Immature Granulocyte Absolute 0.01 K/mm3 (0.00-0.031); Immature Granulocyte Percent A 0.2 % (0-0.5); Lymphocytes Absolute Auto 1.58 K/mm3 (0.9-3.2); Lymphocytes Percent Auto 34.8 % (18.3-44.2); Mean Corpuscular HGB Conc 31.7 g/dl (32-36); Mean Corpuscular Hemoglobin 26.2 pg (26-34); Mean Corpuscular Volume 82.8 fl (80-100); Mean Platelet Volume 10.1 fl (7.4-10.4); Monocytes Absolute Auto 0.4 K/mm3 (0.1-0.6); Monocytes Percent Auto 8.8 % (2.6-8.5); Neutrophils Absolute Auto 2.3 K/mm3 (1.3-6.7); Neutrophils Percent Auto 50.9 % (45.5-73.1); Platelet Count Result 239 k/mm3 (150-375); Red Blood Count 4.35 M/mm3 (4.2-5.4); Red Cell Distribution Width 14.7 % (11.5-14.5); White Blood Count 4.5 K/mm3 (4.5-10.0)
[2023-05-07 19:49] VITALS: PULSE 81
[2023-05-07 19:58] LABS: Prothrombin Time 13.5 Seconds (11.1-14.7)
--- NOTE | 2023-05-07 20:00 | ED.DIZZY ---
HPI - Dizziness General Chief Complaint: Dizziness Stated Complaint: dizziness Time Seen by Provider: 05/07/23 19:57 Source: patient Mode of arrival: EMS Limitations: no limitations History of Present Illness HPI Narrative: Patient presents initially with concern for dizziness. She states during HPI however that it is even the dizziness that is bothering her and that is in her chief complaint her concern is her shortness of breath whenever she stands and the chest pain that she experiences. She has been experiencing generalized muscle aches. She also says she has taken multiple tests with deferring results at home. She did start having her period on Wednesday and states it is heavy. She has been having a cough and is having difficulty breathing. Her OB Gyne is through [place]. Patient was seen in the emergency department 2 days ago. Patient is adamant that she wants a CT scan as she believes she has a blood clot in her lungs because she can not feel the clots and they are weighing her down. She states she has sleep apnea but does not use a CPAP and is unclear if she has undergone a sleep study. She notes she has been having back pain and pain in her arms. [facility] because she states the side of her head was swollen. She states she keeps feeling like she is going to pass out, even while laying in stretcher. Patient presents with her 2 young children, one in car carrier and one climbing on things (bed/chair) and walking in and out of room. Related Data Allergies Allergy/AdvReac Type Severity Reaction Status Date / Time No Known Allergies Allergy Verified 05/07/23 19:10 [facility] Past Medical History Medical History Patient denies medical problems Social History Social History Smoking packs per day: 0.5 Smoking cigarettes per day: 10.0 Smoking status: Current every day smoker Exam Narrative: GENERAL: Well-appearing, well-nourished HEAD: Normocephalic, atraumatic. No signs of facial asymmetry EYES: Non injected, non icteric ENT: Nares clear, no rhinorrhea or epistaxis. NECK: Supple. CHEST: Clear to auscultation bilaterally throughout without wheezes/crackles/stridor/rhonchi/rales. No respiratory distress. Good air movement. HEART: Regular rate and rhythm. . ABDOMEN: Soft, nondistended. EXTREMITIES: Normal range of motion. No edema. SKIN: Warm, dry, no rash. NEURO: No focal deficits. Alert and oriented . PSYCH: Intermittently tearful. Agitated at times. Course Vital Signs Vital signs: Vital Signs Temperature 97.4 F L 05/07/23 19:24 Pulse Rate 98 05/07/23 19:24 Respiratory Rate 16 05/07/23 19:24 Blood Pressure 115/40 L 05/07/23 19:24 Pulse Oximetry 100 05/07/23 19:24 Oxygen Delivery Room Air 05/07/23 19:24 Temperature 97.4 F L 05/07/23 19:24 Pulse Rate 68 05/07/23 22:08 Respiratory Rate 18 05/07/23 22:08 Blood Pressure 116/63 05/07/23 19:47 Pulse Oximetry 98 05/07/23 22:08 Oxygen Delivery Room Air 05/07/23 19:24 MDM - Dizziness MDM Narrative Medical decision making narrative: Patient presents initially with complaint of dizziness, shortness of breath, generalized muscle aches, and possible . She notes that she has had a cough as well as back pain and pain in her arms. Patient is certain that she has a pulmonary embolism and is requesting CT scan. She states initially that her dizziness is not even a complaint and rather it is that she can not breathe and become short of breath when she stands and feels like she is going to pass out. In the emergency department she is afebrile with vital signs notable for a low diastolic blood pressure not unusual given patient's body habitus. Patient declined chest x-ray as she is adamant she wants a CT scan. I did review the criteria of
[2023-05-07 20:03] LABS: Alanine Aminotransferase 14 U/L (6-35); Albumin Level 4.5 g/dL (3.5-5.1); Alkaline Phosphatase 60 U/L (38-126); Anion Gap 5 mmol/L (4-12); Aspartate Amino Transferase 25 U/L (14-36); Bilirubin,Total 0.4 mg/dL (0.2-1.3); Blood Urea Nitrogen 11 mg/dL (7-17); Calcium 9.3 mg/dL (8.4-10.2); Carbon Dioxide 27 mmol/L (22-30); Chloride 106 mmol/L (98-107); Estimated CRCL calculation 127 ml/min; Estimated Glomerular Filt Rate > 60; Glucose 101 mg/dL (65-110); Lipase 31 U/L (23-300); Potassium 3.6 mmol/L (3.4-5.0); Sodium 138 mmol/L (137-145)
[2023-05-07 20:14] LABS: Troponin I < 0.012 ng/mL (0.000-0.034)
[2023-05-07 20:52] LABS: D Dimer 0.28 ug/mL (<0.48)
[2023-05-07 20:55] LABS: Influenza A QL RT-PCR Negative (Negative); Influenza B QL RT-PCR Negative (Negative); RSV RNA, RT-PCR Negative (Negative); SARS-CoV-2 RNA PCR Negative (Negative)
[2023-05-07 20:56] LABS: Creatine Kinase 73 U/L (30-135)
--- NOTE | 2023-05-07 21:25 | PC.NURSE ---
erp at bedside again to help address the concern the patient has . pt continues to request chest ct even with the results that the erp is at the bedside attempting to provide.
[2023-05-07] MEDS: ACETAMINOPHEN 325 MG TABLET 650 MG PO (21:29)
[2023-05-07] MEDS: IBUPROFEN 600 MG TABLET PO (21:29)
--- NOTE | 2023-05-07 22:07 | PC.NURSE ---
pt refused valium at this time. Pt does not want to become sleepy and not be able to take care of my kids. I am the only one who takes care of them.
[2023-05-07 22:08] VITALS: PULSE 68; RESP 18; O2SAT 98
== END 2023-05-07 22:31 | disposition home or self-care (01) ==
PROVIDERS: Emergency Provider Student in an Organized Health Care Education/Training Program; PCP Internal Medicine Infectious Disease
DX: R06.02 Shortness of breath (principal); D64.9 Anemia, unspecified; Z20.822 Contact with and (suspected) exposure to COVID-19; F17.210 Nicotine dependence, cigarettes, uncomplicated
CPT/HCPCS: 36415; 80053; 81025; 82550; 83690; 83735; 84484; 85025; 85380; 85610; 85730; 87637; 93005; 99284; A9270

== ENCOUNTER 2023-05-24 13:51 | Emergency (ER) | payer OTHER, SELFPAY ==
[2023-05-24 16:05] VITALS: BP 124/89; PULSE 78; RESP 18; TEMP 36.5; O2SAT 100
--- NOTE | 2023-05-24 16:06 | PC.NURSE ---
Pt in ER for treatment accompanied by 2 young children, both under 2 years of age. Pt allowing children to run down hallway, climbing on chairs, running thru automatic doors. RN ask pt if there was someone who could come help with her children, she states no one. Pt very agitated with staff, RN informed pt the staff wants to keep her children macario.
--- NOTE | 2023-05-24 17:20 | PC.NURSE ---
pt left the dept with her children, did not want to wait longer
== END 2023-05-24 18:20 | disposition left against medical advice (07) ==
LOC: ANHED 17:48
PROVIDERS: PCP Internal Medicine Infectious Disease
DX: R07.9 Chest pain, unspecified (principal)
CPT/HCPCS: 99199

== ENCOUNTER 2023-06-02 11:53 | Emergency (ER) | payer OTHER, SELFPAY ==
[2023-06-02 11:56] VITALS: BP 111/57; PULSE 90; RESP 16; TEMP 36.6; O2SAT 99
--- NOTE | 2023-06-02 13:54 | PC.NURSE ---
Pt called to speak with the on-call physician she is currently in the waiting room. She is here for her infection on her head. She was seen by her ENT and prescribed an antibiotic. States she is going to get meningitis if she has to what any longer. Explained to the pt that there are others in the [facility] that have been waiting longer than her. Explained to pt that she has been triaged and all of her vital signs are with in normal limits. Also explained to pt that she can follow-up with her PCP. Both suggestions pt told me she cannot do. Pt upset that she has been waiting for close to 2 hours to get to a room.
--- NOTE | 2023-06-02 14:40 | PC.NURSE ---
Patient seen exiting ED in no acute distress.
== END 2023-06-02 15:37 | disposition left against medical advice (07) ==
LOC: ANHED 15:31
PROVIDERS: PCP Internal Medicine Infectious Disease
DX: R51.9 Headache, unspecified (principal)
CPT/HCPCS: 99199

== ENCOUNTER 2023-06-13 21:06 | Emergency (ER) | payer OTHER, SELFPAY ==
--- NOTE | ~2023-06-13 | XR_ITS ---
EXAMINATION: XR chest 2V DATE: 06/13/2023 21:57 INDICATION: Cough, chest pain and shortness of breath TECHNIQUE: PA and lateral views of the chest were obtained. COMPARISON: Chest radiograph dated 05/05/2023 FINDINGS: The lungs remain clear with no focal airspace opacities, pulmonary edema, pleural effusion or pneumot horax. The cardiomediastinal silhouette is normal. Visualized bones and soft tissues are unremarkable . IMPRESSION: 1. No acute cardiopulmonary disease. Reviewed, dictated and finalized at location A.
[2023-06-13 21:08] VITALS: BP 116/68; PULSE 84; RESP 20; TEMP 36.4; O2SAT 100
--- NOTE | 2023-06-13 21:12 | ECG_ITS ---
SEE SCANNED COPY FOR CONFIRMED REPORT MTDD
[2023-06-13 21:34] VITALS: O2SAT 100
[2023-06-13 21:39] LABS: Basophils Percent Auto 0.4 % (0.2-1.2); Eosinophils Absolute Auto 0.3 K/mm3 (0-0.3); Eosinophils Percent Auto 4.4 % (0-4.4); Hematocrit 38.1 % (37.0-47.0); Hemoglobin 12.1 g/dL (12.0-15.0); Immature Granulocyte Absolute 0.03 K/mm3 (0.00-0.031); Immature Granulocyte Percent A 0.4 % (0-0.5); Lymphocytes Absolute Auto 2.94 K/mm3 (0.9-3.2); Lymphocytes Percent Auto 40.6 % (18.3-44.2); Mean Corpuscular HGB Conc 31.8 g/dl (32-36); Mean Corpuscular Hemoglobin 26.3 pg (26-34); Mean Corpuscular Volume 82.8 fl (80-100); Mean Platelet Volume 10.7 fl (7.4-10.4); Monocytes Absolute Auto 0.6 K/mm3 (0.1-0.6); Monocytes Percent Auto 8.1 % (2.6-8.5); Neutrophils Absolute Auto 3.3 K/mm3 (1.3-6.7); Neutrophils Percent Auto 46.1 % (45.5-73.1); Platelet Count Result 270 k/mm3 (150-375); Red Cell Distribution Width 15.7 % (11.5-14.5); White Blood Count 7.3 K/mm3 (4.5-10.0)
[2023-06-13 21:49] LABS: Alanine Aminotransferase 15 U/L (6-35); Albumin Level 4.5 g/dL (3.5-5.1); Alkaline Phosphatase 63 U/L (38-126); Anion Gap 6 mmol/L (4-12); Aspartate Amino Transferase 26 U/L (14-36); Bilirubin,Total 0.3 mg/dL (0.2-1.3); Blood Urea Nitrogen 8 mg/dL (7-17); Calcium 8.8 mg/dL (8.4-10.2); Carbon Dioxide 27 mmol/L (22-30); Chloride 108 mmol/L (98-107); Estimated CRCL calculation 94 ml/min; Estimated Glomerular Filt Rate > 60; Glucose 91 mg/dL (65-110); Lipase 39 U/L (23-300); Partial Thromboplastin Time 28.4 Seconds (22.3-36.8); Potassium 3.7 mmol/L (3.4-5.0); Prothrombin Time 14.2 Seconds (11.1-14.7); Sodium 141 mmol/L (137-145)
--- NOTE | 2023-06-13 21:57 | ED.GENADULT ---
[facility] - General Adult General Chief complaint: Shortness of Breath/Dyspnea Stated complaint: Cough, rib pain, sob Time Seen by Provider: 06/13/23 21:39 Source: patient Mode of arrival: ambulatory Limitations: no limitations History of Present Illness [facility] narrative: This is a 22-year-old female who presents to the ED with chief complaint of cough and shortness of breath for the past several days. Patient reports that she has 2 young children who have both been sick recently. She reports pain throughout the chest, worse with coughing and worse with deeper breathing. Reports the chest is tender to touch in the center. She also states that she was in close contact with someone who had COVID. Reports a loose cough but has not had a lot of sputum production. Denies fevers, chills, abdominal pain, nausea, vomiting. She is a half [id number] smoker. Related Data Allergies Allergy/AdvReac Type Severity Reaction Status Date / Time No Known Allergies Allergy Verified 06/13/23 21:36 Review of Systems Review of Systems: All systems as dictated in [facility] Past Medical History Medical History Patient denies medical problems Social History Social History Smoking packs per day: 0.5 Smoking cigarettes per day: 10.0 Smoking status: Current every day smoker Exam Narrative: GENERAL: Well-appearing, well-nourished, and in no acute distress. HEAD: Normocephalic, atraumatic. EYES: PERRLA and EOMI. ENT: Nares clear, no rhinorrhea or epistaxis. Mucous membranes moist. Oropharynx without tonsillar hypertrophy exudate or other lesions. NECK: Supple. No adenopathy or masses. CHEST: No respiratory distress. Clear to auscultation. No wheezes rales or rhonchi. 100% room air. Mild chest wall tenderness to the costochondral junction bilaterally. HEART: Regular rate and rhythm. No murmur heard. Normal peripheral pulses. ABDOMEN: Soft, nontender, nondistended, normal active bowel sounds. MSK: Normal range of motion. No edema. SKIN: Warm, dry, no rash. NEURO: Alert and oriented x3. No focal deficits. PSYCH: Normal mood and affect. Course Vital Signs Vital signs: Vital Signs Temperature 97.6 F 06/13/23 21:08 Pulse Rate 84 06/13/23 21:08 Respiratory Rate 20 06/13/23 21:08 Blood Pressure 116/68 06/13/23 21:08 Pulse Oximetry 100 06/13/23 21:08 Oxygen Delivery Room Air 06/13/23 21:08 Temperature 97.6 F 06/13/23 21:08 Pulse Rate 84 06/13/23 21:08 Respiratory Rate 20 06/13/23 21:08 Blood Pressure 116/68 06/13/23 21:08 Pulse Oximetry 100 06/13/23 21:34 Oxygen Delivery Room Air 06/13/23 21:34 Medical Decision Making MDM Narrative Medical decision making narrative: This is a 22-year-old female who presents to the ED with chief complaint of URI symptoms, rib pain and cough. Vitals are normal. Exam is benign overall. She has mild chest wall tenderness. ECG shows sinus rhythm with no ischemia. PERC rule negative. Lab work unremarkable. White count is normal. Chest x-ray shows no acute findings. Viral swabs negative. Symptoms and presentation consistent with bronchitis. Counseled patient on smoking cessation as smoking will put her at risk have having chronic bronchitis. She has albuterol at home already. Rx for short course of prednisone. Pt will be discharged in stable condition. Return precautions given and supportive measures discussed. Pt is understanding and agreeable with plan for discharge and follow-up with PCP. Vital Signs Vital Signs: Vital Signs Temperature 97.6 F 06/13/23 21:08 Pulse Rate 84 06/13/23 21:08 Respiratory Rate 20 06/13/23 21:08 Blood Pressure 116/68 06/13/23 21:08 Pulse Oximetry 100 06/13/23 21:08 Oxygen Delivery Room Air 06/13/23 21:08 Temperature 97.6 F 06/13/23 21:08 Pulse Rate 84 05/0
[2023-06-13 22:00] LABS: Troponin I < 0.012 ng/mL (0.000-0.034)
[2023-06-13 22:20] LABS: Influenza A QL RT-PCR Negative (Negative); Influenza B QL RT-PCR Negative (Negative); RSV RNA, RT-PCR Negative (Negative); SARS-CoV-2 RNA PCR Negative (Negative)
--- NOTE | 2023-06-13 22:24 | PC.NURSE ---
Pt called this RN into room and states she wants a different nurse. Pt c/o chest pain and states she cannot breathe. Pt resting on stretcher in no acute distress, VSS. HEATHER Anderson and discharge door operator notified.
[2023-06-13 22:25] VITALS: BP 105/67; PULSE 70; RESP 18; O2SAT 100
[2023-06-13 22:37] VITALS: BP 105/78; PULSE 76; RESP 18; O2SAT 98
== END 2023-06-13 22:39 | disposition home or self-care (01) ==
PROVIDERS: Emergency Medicine; Emergency Provider Physician Assistant; PCP Internal Medicine Infectious Disease
DX: B34.9 Viral infection, unspecified (principal); J40 Bronchitis, not specified as acute or chronic; Z20.822 Contact with and (suspected) exposure to COVID-19; F17.210 Nicotine dependence, cigarettes, uncomplicated
CPT/HCPCS: 36415; 71046; 80053; 83690; 84484; 85025; 85610; 85730; 87637; 93005; 99284

== ENCOUNTER 2023-10-06 13:12 | Emergency (ER) | payer OTHER, SELFPAY ==
--- NOTE | ~2023-10-06 | CT_ITS ---
EXAMINATION: CT abdomen pelvis w con DATE: 10/06/2023 14:58 INDICATION: Bilateral flank pain. Dysuria. TECHNIQUE: Computed tomography (CT) of the abdomen and pelvis was performed with 100 mL Omnipaque 350 intravenous contrast. Automated exposure control and iterative reconstruction technique were employe d. The dose-length product was 251.22 mGy-cm. COMPARISON: None. FINDINGS: The visualized portions of the lung bases are clear without pneumonia or pleural effusion. The heart size is normal. No pericardial effusion. The liver, gallbladder, spleen, pancreas, adrenal glands, and kidneys are normal. There are no dilated loops of bowel. The appendix is normal. There is physiologic fluid in the pelvis. There are no pathologically enlarged lymph nodes. The bones are unr emarkable. IMPRESSION: 1. No etiology for the patient's symptoms. Reviewed, dictated and finalized at location A.
[2023-10-06 13:17] VITALS: PULSE 90; RESP 20; TEMP 36.8; O2SAT 98
--- NOTE | 2023-10-06 13:30 | ED.ABDPAIN ---
HPI - Abdominal Pain General Chief Complaint: Abdominal Pain Stated Complaint: abd pain History of Present Illness HPI narrative: 23-year-old female with an undisclosed a GI history presents [facility] to the emergency room for evaluation of nausea vomiting and abdominal pain. patient states that she woke up with lower abdominal pain that radiates into her back. Patient also endorses nausea or vomiting. Denies any blood in her vomit. States that the 2 days of diarrhea that resolved yesterday. Patient also complaining of dysuria. Denies fevers. LMP 2 weeks ago. No concerns over STI's Related Data Allergies Allergy/AdvReac Type Severity Reaction Status Date / Time No Known Allergies Allergy Verified 06/13/23 21:36 Review of Systems Review of Systems: ROS unremarkable except for noted in HPI PMFSH Past Medical History Medical History Patient denies medical problems Social History Social History Smoking packs per day: 0.5 Smoking cigarettes per day: 10.0 Smoking status: Current every day smoker Exam Narrative: GENERAL: Well-appearing, well-nourished, no physical limitations, and in mild acute distress. HEAD: Normocephalic, atraumatic. EYES: Conjunctivae normal, PERRLA and EOMI. CHEST: Clear to auscultation. No respiratory distress. No wheezes rales or rhonchi. HEART: Regular rate and rhythm. No murmur heard. Normal peripheral pulses. ABDOMEN: Soft, lower abd tenderness, nondistended, normal active bowel sounds. : Normal external male/female exam. BACK: Bilateral CVA tenderness EXTREMITIES: Normal range of motion. No edema. No clubbing or cyanosis SKIN: Warm, dry, no rash. No noted wounds NEURO: No focal deficits. Alert and oriented x3. MAEW. CN's II-XI intact bilaterally, normal gait PSYCH: Cooperative. Normal mood and affect. Course Vital Signs Vital signs: Vital Signs Temperature 36.8 C 10/06/23 13:17 Pulse Rate 90 10/06/23 13:17 Respiratory Rate 20 10/06/23 13:17 Pulse Oximetry 98 10/06/23 13:17 Temperature 36.8 C 10/06/23 13:17 Pulse Rate 90 10/06/23 13:17 Respiratory Rate 20 10/06/23 13:17 Pulse Oximetry 98 10/06/23 13:17 MDM - Abdominal Pain MDM Narrative Medical decision making narrative: 23-year-old female presents emergency room for evaluation of abdominal pain. Lab work was unremarkable. No evidence of intra-abdominal infection per CT. Scalp film show up moderate stool burden. UA was clean for cystitis. Patient was given IM Bentyl and Zofran which relieved her symptoms. Discharge Plan Discharge Clinical Impression: Abdominal pain, Constipation Patient Disposition: Home, Self-Care Condition: Stable Instructions: Antibiotic Form, Abdominal Pain (ED) Prescriptions: No Action Saline Nasal 0.65 % aerosol,spray 2 spray intranasal QID PRN (Reason: dry nasal passages) Qty: 44 0RF metronidazole 500 mg tablet 500 mg PO Q12H 7 Days Qty: 14 0RF methylprednisolone [Medrol ([place])] 4 mg tablets,dose pack See Rx Instructions .ROUTE .COMPLEX Qty: 21 0RF Rx Instructions: orally per package directions ondansetron 4 mg tablet,disintegrating 4 mg PO Q8H PRN (Reason: nausea and vomiting) Qty: 14 0RF prednisone 20 mg tablet 20 mg PO DAILY 5 Days Qty: 5 0RF acetaminophen 650 mg tablet extended release 650 mg PO .q6 hr PRN (Reason: pain) Qty: 20 0RF ibuprofen 200 mg capsule 600 mg PO Q6H PRN (Reason: pain) Qty: 20 0RF Follow-up/Referrals: Regla,Catie Crespo [Primary Care Provider] - Time of Disposition: 15:27
[2023-10-06] MEDS: DICYCLOMINE HCL INJ 20 MG/2 ML VIAL IM (13:47)
[2023-10-06] MEDS: ONDANSETRON INJ 4 MG/2 ML VIAL IV PUSH (13:47)
[2023-10-06] MEDS: SODIUM CHLORIDE 0.9% IV 1,000 ML 999 ML IV CONT (13:47)
[2023-10-06 14:00] LABS: BEDSIDEPREGUCG Negative
[2023-10-06 14:06] LABS: Add Urine Microscopic? YES; Appearance Urine Clear (Clear); Bacteria Urine None Seen /hpf; Bilirubin Urine Negative (Negative); Blood Urine 1+ (Negative); Color Urine Yellow (Yellow); Glucose Urine UA Negative (Negative); Ketones Urine Negative (Negative); Leukocyte Esterase Ur Negative LEU/UL (Negative); Nitrate Urine Negative (Negative); Non Pathogenic Casts 0-2; Protein Urine Negative (Negative); Specific Grav Ur 1.009 (1.001-1.035); Squamous Epithelial Cell Urine None Seen /hpf (Few); Urobilinogen Urine 0.2 mg/dL (<2.0); WBC Urine 0-5 /hpf (0-3); pH Urine 7.5 (5.0-9.0)
[2023-10-06 14:10] LABS: Basophils Percent Auto 0.8 % (0.2-1.2); Eosinophils Absolute Auto 0.2 K/mm3 (0-0.3); Eosinophils Percent Auto 3.8 % (0-4.4); Hematocrit 38.3 % (37.0-47.0); Hemoglobin 12.4 g/dL (12.0-15.0); Immature Granulocyte Absolute 0.02 K/mm3 (0.00-0.031); Immature Granulocyte Percent A 0.4 % (0-0.5); Lymphocytes Absolute Auto 1.69 K/mm3 (0.9-3.2); Lymphocytes Percent Auto 31.9 % (18.3-44.2); Mean Corpuscular HGB Conc 32.4 g/dl (32-36); Mean Corpuscular Hemoglobin 28.1 pg (26-34); Mean Corpuscular Volume 86.7 fl (80-100); Mean Platelet Volume 10.7 fl (7.4-10.4); Monocytes Absolute Auto 0.4 K/mm3 (0.1-0.6); Monocytes Percent Auto 6.8 % (2.6-8.5); Neutrophils Percent Auto 56.3 % (45.5-73.1); Platelet Count Result 271 k/mm3 (150-375); Red Blood Count 4.42 M/mm3 (4.2-5.4); Red Cell Distribution Width 13.8 % (11.5-14.5); Urine Pregnancy Test Negative; White Blood Count 5.3 K/mm3 (4.5-10.0)
[2023-10-06 14:11] LABS: Pregnancy On Board Control Positive
[2023-10-06 14:13] LABS: Alanine Aminotransferase 12 U/L (6-35); Albumin Level 4.3 g/dL (3.5-5.1); Alkaline Phosphatase 55 U/L (38-126); Anion Gap 9 mmol/L (4-12); Aspartate Amino Transferase 23 U/L (14-36); Bilirubin,Total 0.3 mg/dL (0.2-1.3); Blood Urea Nitrogen 12 mg/dL (7-17); Calcium 8.9 mg/dL (8.4-10.2); Carbon Dioxide 26 mmol/L (22-30); Chloride 103 mmol/L (98-107); Estimated CRCL calculation 107 ml/min; Estimated Glomerular Filt Rate > 60; Glucose 93 mg/dL (65-110); Lipase 26 U/L (23-300); Potassium 3.9 mmol/L (3.4-5.0); Sodium 138 mmol/L (137-145)
[2023-10-06 14:17] LABS: Amphetamine Screen Urine Negative (Negative); Barbiturate Screen Urine Negative (Negative); Benzodiazepines Screen Urine Negative (Negative); Cannabinoid Screen Urine Negative (Negative); Cocaine Screen Urine Negative (Negative); Methadone Screen Urine Negative (Negative); Opiate Screen Urine Negative (Negative); Phencyclidine Screen Urine Negative (Negative)
[2023-10-06 15:32] VITALS: BP 120/78; PULSE 88; RESP 18; TEMP 36.7; O2SAT 100
== END 2023-10-06 15:35 | disposition home or self-care (01) ==
PROVIDERS: Emergency Provider Nurse Practitioner Family; PCP Internal Medicine Infectious Disease
DX: K59.00 Constipation, unspecified (principal); F17.210 Nicotine dependence, cigarettes, uncomplicated
CPT/HCPCS: 36415; 74177; 80053; 80307; 81001; 81025; 83690; 85025; 96361; 96372; 96374; 99284; J0500; J2405; J7030; Q9967

== ENCOUNTER 2023-11-05 18:21 | Emergency (ER) | payer OTHER, SELFPAY ==
[2023-11-05 18:28] VITALS: BP 117/53; PULSE 80; RESP 18; TEMP 36.4; O2SAT 99
--- NOTE | 2023-11-05 18:34 | ECG_ITS ---
Test Date: 2023-11-05 18:39:39 Measurements Intervals [place] Rate: 89 P: 68 HI: 147 QRS: 76 QRSD: 85 T: 60 QT: 365 QTc: 446 Interpretive Statements SINUS RHYTHM WITH SINUS ARRHYTHMIA RSR' IN V1 OR V2, PROBABLY NORMAL VARIANT NONSPECIFICT ST ELEVATION IN ANT/INF LEADS BORDERLINE ECG No previous ECG available for comparison Electronically Signed On 11-05-2023 20:11:35 CDT by Damien Mccarthy D.O.
--- NOTE | 2023-11-05 20:57 | PC.NURSE ---
Patient comes to desk multiple times and states I need to be seen, I have waited her too long and how much longer is it going to take! This RN and room service clerk inform patient that patients are taken back based on acuity, not who comes in first. Patient also informed that wait times are not given out since that time is always changing. Patient verbalizes understanding and walks away back to [facility] waiting room where her kids are sitting stating my kids are crying and it doesn't take that long, what the hell is taking so long to get back!
--- NOTE | 2023-11-05 23:01 | PC.NURSE ---
Patient called for room assignment, no answer and not seen in waiting room. Waiting room patients stated she left a while ago with family. Patient marked as left without being seen, triaged.
== END 2023-11-05 23:23 | disposition left against medical advice (07) ==
LOC: ANHED 23:04
PROVIDERS: Emergency Provider Emergency Medicine; PCP Internal Medicine Infectious Disease
DX: Z53.21 Procedure and treatment not carried out due to patient leaving prior to being seen by health care provider (principal)
CPT/HCPCS: 93005; 99199

== ENCOUNTER 2023-12-17 20:40 | Emergency (ER) | payer OTHER, SELFPAY ==
[2023-12-17] VITALS (9 sets, daily range): BP systolic 117–120; BP diastolic 58–66; PULSE 64–90; RESP 14–22; TEMP 36.3; O2SAT 96–100
--- NOTE | ~2023-12-17 | XR_ITS ---
CHEST RADIOGRAPH CLINICAL HISTORY: chest pain . COMPARISON: 06/13/2023 TECHNIQUE: Single portable view of the chest. FINDINGS The cardiomediastinal silhouette is unremarkable. The lungs are clear. Visualized osseous structures and soft tissues are unremarkable. IMPRESSION: No focal infiltrate or effusion. Reviewed, dictated and finalized at location A. IFICATION ENGINEER
--- NOTE | 2023-12-17 20:42 | ECG_ITS ---
Test Date: 2023-12-17 20:59:03 Measurements Intervals [place] Rate: 95 P: 73 CO: 148 QRS: 92 QRSD: 86 T: 29 QT: 354 QTc: 447 Interpretive Statements SINUS RHYTHM RIGHT AXIS DEVIATION BORDERLINE ST-T WAVE ABNORMALITY- INFERIOR LEADS BORDERLINE ECG Compared to ECG 11/05/2023 18:39:39 NO SIGNIFICANT CHANGE Electronically Signed On 12-18-2023 06:54:02 SAP BW BI DEVELOPER by Damien Mccarthy D.O.
[2023-12-17 21:11] LABS: Basophils Percent Auto 0.5 % (0.2-1.2); Eosinophils Absolute Auto 0.2 K/mm3 (0-0.3); Eosinophils Percent Auto 2.9 % (0-4.4); Hematocrit 38.1 % (37.0-47.0); Hemoglobin 12.8 g/dL (12.0-15.0); Immature Granulocyte Absolute 0.02 K/mm3 (0.00-0.031); Immature Granulocyte Percent A 0.3 % (0-0.5); Lymphocytes Absolute Auto 2.07 K/mm3 (0.9-3.2); Lymphocytes Percent Auto 27.3 % (18.3-44.2); Mean Corpuscular HGB Conc 33.6 g/dl (32-36); Mean Corpuscular Hemoglobin 28.6 pg (26-34); Mean Platelet Volume 10.3 fl (7.4-10.4); Monocytes Absolute Auto 0.5 K/mm3 (0.1-0.6); Monocytes Percent Auto 6.7 % (2.6-8.5); Neutrophils Absolute Auto 4.7 K/mm3 (1.3-6.7); Neutrophils Percent Auto 62.3 % (45.5-73.1); Platelet Count Result 259 k/mm3 (150-375); Red Blood Count 4.48 M/mm3 (4.2-5.4); Red Cell Distribution Width 13.1 % (11.5-14.5); White Blood Count 7.6 K/mm3 (4.5-10.0)
[2023-12-17 21:21] LABS: Alanine Aminotransferase 14 U/L (6-35); Albumin Level 4.7 g/dL (3.5-5.1); Alkaline Phosphatase 66 U/L (38-126); Anion Gap 7 mmol/L (4-12); Aspartate Amino Transferase 24 U/L (14-36); Bilirubin,Total 0.3 mg/dL (0.2-1.3); Blood Urea Nitrogen 5 mg/dL (7-17); Calcium 9.2 mg/dL (8.4-10.2); Carbon Dioxide 24 mmol/L (22-30); Chloride 107 mmol/L (98-107); Estimated CRCL calculation 107 ml/min; Estimated Glomerular Filt Rate > 60; Glucose 91 mg/dL (65-110); Lipase 34 U/L (23-300); Potassium 3.8 mmol/L (3.4-5.0); Sodium 138 mmol/L (137-145)
[2023-12-17 21:22] LABS: Prothrombin Time 13.4 Seconds (11.1-14.7)
[2023-12-17 21:23] LABS: Partial Thromboplastin Time 28.6 Seconds (22.3-36.8)
[2023-12-17 21:32] LABS: Troponin I < 0.012 ng/mL (0.000-0.034)
[2023-12-17 21:43] LABS: BEDSIDEPREGUCG Negative (Negative)
--- NOTE | 2023-12-17 21:43 | PC.NURSE ---
Patient bedside test negative, patient states it was negative at [place] this morning, but they did the blood one and it was positive, they said I was about4-5 weeks. ERP notified, new orders being placed by PA. Patient states she is not in any pain at this time.
[2023-12-17 21:48] LABS: Add Urine Microscopic? YES; Appearance Urine Clear (Clear); Bacteria Urine None Seen /hpf; Bilirubin Urine Negative (Negative); Blood Urine 3+ (Negative); Color Urine Yellow (Yellow); Glucose Urine UA Negative (Negative); Ketones Urine Negative (Negative); Leukocyte Esterase Ur 1+ LEU/UL (Negative); Nitrate Urine Negative (Negative); Non Pathogenic Casts 0-2; Protein Urine Negative (Negative); RBC Urine 51-100 /hpf (0-2); Specific Grav Ur 1.018 (1.001-1.035); Squamous Epithelial Cell Urine Occasional /hpf (Few); Urobilinogen Urine 0.2 mg/dL (<2.0); pH Urine 6.5 (5.0-9.0)
[2023-12-17 21:53] LABS: D Dimer 0.28 ug/mL (<0.48)
--- NOTE | 2023-12-17 22:09 | ED.CHESTPAIN ---
HPI - Chest Pain General Chief Complaint: Chest Pain Stated Complaint: chest pain, right sided; w/inspiration Time Seen by Provider: 12/17/23 21:05 Source: patient Mode of arrival: ambulatory Limitations: no limitations History of Present Illness HPI narrative: Patient is a 23-year-old female who presents the ED with multiple complaints. Patient reports she has been having intermittent chest pain over the last few days. Today, she began having pain throughout her right sided chest, worse with deep breathing. She does feel mildly short of breath. No history of blood clots or previous cardiac issues. Patient also reports having vaginal bleeding. She is unsure of her last normal menstrual cycle. States she had a full cycle in October, then only had 1 day of spotting on November 15. She has had positive and negative tests at home. She states she was seen at [facility] today and was told her blood test was positive. Patient has passed some clots in her blood. She is scheduled to see an OBGYN in 2 weeks. This would make her . Does admit to some lower abdominal pain that began today. Related Data Allergies Allergy/AdvReac Type Severity Reaction Status Date / Time No Known Allergies Allergy Verified 06/13/23 21:36 Review of Systems Review of Systems: All systems reviewed & are unremarkable except as noted in HPI. All systems reviewed & are unremarkable except as noted in HPI and below PMFSH Past Medical History Medical History Patient denies medical problems Social History Social History Smoking packs per day: 0.5 Smoking cigarettes per day: 10.0 Smoking status: Current every day smoker Exam Narrative: GENERAL: Well appearing, well-nourished, non-toxic, in no acute distress. HEAD: Normocephalic, atraumatic. RESPIRATORY: Airway patent, respirations nonlabored. Clear to auscultation bilaterally, no rales, rhonchi, wheezing. CARDIOVASCULAR: Regular rate and rhythm without murmurs, rubs, or gallops. ABDOMINAL: Soft, diffuse tenderness throughout abdomen, no significant focal tenderness, nondistended. Normoactive BS. PELVIC: Normal external genitalia. Mild amount of dark red vaginal bleeding in vaginal vault. No significant clots noted. Cervix appears unremarkable, os is visible, but does not appear to be significantly open. MUSCULOSKELETAL: Moves all extremities. No gross deformities. Mild reproducible tenderness over right upper anterior chest wall. SKIN: Warm, dry, normal color. NEURO: A&O X3. Speech clear. Cranial nerves II-XII grossly intact. Steady gait. No ataxic movements. PSYCHIATRIC: Appropriate mood and affect. Normal interaction. Course Vital Signs Vital signs: Vital Signs Temperature 97.4 F L 12/17/23 20:49 Pulse Rate 90 12/17/23 20:49 Respiratory Rate 15 12/17/23 20:49 Blood Pressure 120/66 12/17/23 20:49 Pulse Oximetry 99 12/17/23 20:49 Oxygen Delivery Room Air 12/17/23 20:49 Temperature 97.4 F L 12/17/23 20:49 Pulse Rate 64 12/17/23 23:00 Respiratory Rate 22 H 12/17/23 23:00 Blood Pressure 117/58 L 12/17/23 21:27 Pulse Oximetry 100 12/17/23 23:00 Oxygen Delivery Room Air 12/17/23 21:37 MDM - Chest Pain MDM Narrative Medical decision making narrative: EKG without concerning ischemic changes. Troponin undetectable. Heart score is 0. D-dimer is within normal limits. CXR interpreted by myself negative, no evidence of focal consolidation. Low suspicion for ACS. Suspect musculoskeletal etiology. Bedside urine was negative. Urinalysis does show moderate amount of bleeding, 6-10 whites, occasional squamous cells. No urine bacteria seen. Likely contaminated catch. Sent for culture. Patient reports she was told at another hospital that her blood testing was positive for despite her urine testing negative. Beta hCG was obtained today and 4.07. Still technically negative but not undetectable. Discussed this with patient. She reports that her beta-hCG last week at [facility] was 30. Discussed that with patient now having vaginal bleeding and down trending beta HCG, likely consistent with spontaneous miscarriage. Patient has a follow-up appointment with OBGYN in 2 weeks with [facility]. Pelvic exam was performed and w/o significant abnormal findings. Os was visualized and did not appear frankly open/dilated. Discussed obtaining further imaging including ultrasound versus CT scan, however patient would prefer to go home at this time. Patient will follow-up with OBGYN. Will place lab order for repeat beta hCG on Wednesday, 12/19. I have very low suspicion for ectopic at this time. Patient does not have any focal tenderness throughout lower abdomen on exam. No evidence of surgical abdomen. She is otherwise hemodynamically stable. Has been ambulatory to/from the bathroom w/o issue and unassisted. Feel she is safe for outpatient follow-up. Discussed strict return precautions. Patient voiced understanding and again feels comfortable going home. D/C in stable condition. Medical Records Data Attestation: I reviewed the patient's medical records. Lab Data Attestation: I reviewed the patient's lab results. 12/17/23 20:59 12/17/23 20:59 Labs: Lab Results 12/17/23 12/17/23 12/17/23 Range/Units 20:59 21:33 21:40 WBC 7.6 (4.5-10.0) K/mm3 RBC 4.48 (4.2-5.4) M/mm3 Hgb 12.8 (12.0-15.0) g/dL Hct 38.1 (37.0-47.0) % MCV 85.0 (80-100) fl MCH 28.6 (26-34) pg MCHC 33.6 (32-36) g/dl RDW 13.1 (11.5-14.5) % Plt Count 259 (150-375) k/mm3 MPV 10.3 (7.4-10.4) fl Immature Gran % (Auto) 0.3 (0-0.5) % Neut % (Auto) 62.3 (45.5-73.1) % Lymph % (Auto) 27.3 (18.3-44.2) % [place] % (Auto) 6.7 (2.6-8.5) % Eos % (Auto) 2.9 (0-4.4) % Baso % (Auto) 0.5 (0.2-1.2) % Lymph # (Auto) 2.07 (0.9-3.2) K/mm3 [place] # (Auto) 0.5 (0.1-0.6) K/mm3 Eos # (Auto) 0.2 (0-0.3) K/mm3 Baso # (Auto) 0.0 (0.0-0.1) K/mm3 Abs Immat Gran (auto) 0.02 (0.00-0.031) K/mm3 Absolute Neuts (auto) 4.7 (1.3-6.7) K/mm3 Absolute Nucleated RBC 0.000 (0.0-0.012) K/mm3 Nucleated RBC % 0.0 (0.0-0.2) % PT 13.4 (11.1-14.7) Seconds INR 1.0 APTT 28.6 (22.3-36.8) Seconds D-Dimer 0.28 (<0.48) ug/mL Sodium 138 (137-145) mmol/L Potassium 3.8 (3.4-5.0) mmol/L Chloride 107 (98-107) mmol/L Carbon Dioxide 24 (22-30) mmol/L Anion Gap 7 (4-12) mmol/L BUN 5 L D (7-17) mg/dL Creatinine 0.60 L (0.7-1.0) mg/dL Estim Creat Clear Calc 107 ml/min Estimated GFR > 60 (59 - ) Glucose 91 (65-110) mg/dL Calcium 9.2 (8.4-10.2) mg/dL Total Bilirubin 0.3 (0.2-1.3) mg/dL AST 24 (14-36) U/L ALT 14 (6-35) U/L Alkaline Phosphatase 66 (38-126) U/L Troponin I < 0.012 (0.000-0.034) ng/mL Total Protein 8.0 (6.3-8.2) g/dL Albumin 4.7 (3.5-5.1) g/dL Lipase 34 (23-300) U/L Beta HCG, Quant 4.07 mIU/ML Urine Color Yellow (Yellow) Urine Appearance Clear (Clear) Urine pH 6.5 (5.0-9.0) Ur Specific [place] 1.018 (1.001-1.035) Urine Protein Negative (Negative) mg/dL Urine Glucose (UA) Negative (Negative) mg/dL Urine Ketones Negative (Negative) mg/dL Ur Blood (Man) 3+ H (Negative) Urine Nitrate Negative (Negative) Urine Bilirubin Negative (Negative) Urine Urobilinogen 0.2 (<2.0) mg/dL Leukocyte Esterase Rfl 1+ H (Negative) AMAYA/UL Urine RBC 51-100 H (0-2) /hpf Urine WBC 6-10 H (0-3) /hpf Ur Squamous Epith Cells Occasional (Few) /hpf Urine Bacteria None seen /hpf Urine Casts 0-2 POC Urine HCG, Qual Negative (Negative) Imaging Data Attestation: I personally reviewed and interpreted this imaging study as follows: My impression: CXR: Clear Radiologist's impression: ITS Impressions Chest X-Ray 12/18/23 00:11 IMPRESSION: No focal infiltrate or effusion. ECG Data EKG #1: Attestation: I personally reviewed and interpreted this ECG as follows: ECG completion date: 12/18/23 ECG completion time: 20:59 EKG Interpretation: normal rate (95), sinus rhythm and no ST changes Discharge Plan Discharge Clinical Impression: Spontaneous , Right-sided chest wall pain Patient Disposition: Home, Self-Care Condition: Stable Instructions: Antibiotic Form, Miscarriage (ED), Chest Wall Pain (ED) Additional Instructions: Your hormone level today was 4.07. This is down trending from your lab test last week. As discussed, this is likely consistent with a miscarriage. Obtain repeat hormone level on Wednesday, 12/19. Take lab order sheet with you. Follow-up with your OBGYN for further evaluation. Continue to monitor bleeding. Recommend pelvic rest (no tampons, intercourse, heavy lifting/strenuous activity) until seen by OBGYN. Return to the ED if you experience worsening or severe pain, severe bleeding, unable to keep down food or drink, significant difficulty breathing, persistent fevers, or any other symptoms of concern. Prescriptions: No Action Saline Nasal 0.65 % aerosol,spray 2 spray intranasal QID PRN (Reason: dry nasal passages) Qty: 44 0RF metronidazole 500 mg tablet 500 mg PO Q12H 7 Days Qty: 14 0RF methylprednisolone [Medrol ([place])] 4 mg tablets,dose pack See Rx Instructions .ROUTE .COMPLEX Qty: 21 0RF Rx Instructions: orally per package directions ondansetron 4 mg tablet,disintegrating 4 mg PO Q8H PRN (Reason: nausea and vomiting) Qty: 14 0RF prednisone 20 mg tablet 20 mg PO DAILY 5 Days Qty: 5 0RF acetaminophen 650 mg tablet extended release 650 mg PO .q6 hr PRN (Reason: pain) Qty: 20 0RF ibuprofen 200 mg capsule 600 mg PO Q6H PRN (Reason: pain) Qty: 20 0RF Other Ambulatory Orders: Beta HCG Quantitative (Routine) Timeframe: 20231220 Location: Determined by Patient Ordered By: Lexie Vegas Follow-up/Referrals: Regla,Catie Crespo [Primary Care Provider] - Time of Disposition: 23:15 Quality HEART score for chest pain patients History: slightly suspicious ECG: normal Age: < or = to 45 years Risk factors: no risk factors known Troponin: < or = to 1x normal limit Heart score: 0
[2023-12-17 22:11] LABS: Beta HCG Quantitative 4.07 mIU/ML
--- NOTE | 2023-12-17 23:50 | PC.NURSE ---
This RN called [employer] upon request for ride home, called [phone], and got a ride coming for patient. Patient was discharged by another RN. Patient and her children were taken to waiting room to wait for her ride home.
== END 2023-12-17 23:54 | disposition home or self-care (01) ==
PROVIDERS: Preventive Medicine Aerospace Medicine; Emergency Provider Physician Assistant; PCP Internal Medicine Infectious Disease
DX: O03.9 Complete or unspecified spontaneous abortion without complication (principal); R07.89 Other chest pain; F17.210 Nicotine dependence, cigarettes, uncomplicated
CPT/HCPCS: 36415; 71045; 80053; 81001; 81025; 83690; 84484; 84702; 85025; 85380; 85610; 85730; 87086; 93005; 99284

== ENCOUNTER 2023-12-23 20:49 | Emergency (ER) | payer OTHER, SELFPAY ==
--- NOTE | ~2023-12-23 | CT_ITS ---
Non-contrast CT scan of the Abdomen and Pelvis Clinical indication: Abdominal pain Technique: 2.5 mm axial scans were obtained through the abdomen and pelvis without intravenous or or al contrast. Dose reduction technique was used on this scan by utilizing automated exposure control a nd iterative reconstruction technique. The dose-length product (DLP) was 345.95 mGy-cm. COMPARISON: 10/06/2023 Findings: Images through the lung bases reveal no abnormalities. There is no evidence of renal or ureteral calculi. The kidneys and the ureters are nondilated. The liver, spleen, pancreas, gallbladder, and adrenals appear normal. There is no aortic aneurysm. There is no evidence of bowel obstruction. Images through the pelvis were performed. There is no evidence of ascites or lymphadenopathy. Urinary bladder unremarkable. No pelvic mass seen. Impression: No significant abnormality seen. Reviewed, dictated and finalized at [facility]. POWER DEVELOPER Impression: No significant abnormality seen.
[2023-12-23 21:02] VITALS: BP 112/59; PULSE 80; RESP 20; TEMP 36.2; O2SAT 100
[2023-12-23 22:21] LABS: Basophils Percent Auto 0.6 % (0.2-1.2); Eosinophils Absolute Auto 0.2 K/mm3 (0-0.3); Eosinophils Percent Auto 3.1 % (0-4.4); Hematocrit 38.1 % (37.0-47.0); Hemoglobin 12.4 g/dL (12.0-15.0); Immature Granulocyte Absolute 0.02 K/mm3 (0.00-0.031); Immature Granulocyte Percent A 0.3 % (0-0.5); Lymphocytes Absolute Auto 2.46 K/mm3 (0.9-3.2); Lymphocytes Percent Auto 36.2 % (18.3-44.2); Mean Corpuscular HGB Conc 32.5 g/dl (32-36); Mean Corpuscular Hemoglobin 28.1 pg (26-34); Mean Corpuscular Volume 86.2 fl (80-100); Mean Platelet Volume 10.3 fl (7.4-10.4); Monocytes Absolute Auto 0.4 K/mm3 (0.1-0.6); Neutrophils Absolute Auto 3.7 K/mm3 (1.3-6.7); Neutrophils Percent Auto 53.8 % (45.5-73.1); Platelet Count Result 290 k/mm3 (150-375); Red Blood Count 4.42 M/mm3 (4.2-5.4); Red Cell Distribution Width 12.9 % (11.5-14.5); White Blood Count 6.8 K/mm3 (4.5-10.0)
[2023-12-23 22:40] LABS: Alanine Aminotransferase 15 U/L (6-35); Albumin Level 4.6 g/dL (3.5-5.1); Alkaline Phosphatase 63 U/L (38-126); Anion Gap 7 mmol/L (4-12); Aspartate Amino Transferase 24 U/L (14-36); Bilirubin,Total 0.4 mg/dL (0.2-1.3); Blood Urea Nitrogen 7 mg/dL (7-17); Carbon Dioxide 27 mmol/L (22-30); Chloride 105 mmol/L (98-107); Estimated CRCL calculation 109 ml/min; Estimated Glomerular Filt Rate > 60; Glucose 89 mg/dL (65-110); Lipase 27 U/L (23-300); Potassium 3.6 mmol/L (3.4-5.0); Sodium 139 mmol/L (137-145)
[2023-12-23 22:58] LABS: Beta HCG Quantitative < 2.39 mIU/ML
[2023-12-23 23:14] LABS: Add Urine Microscopic? YES; Appearance Urine Clear (Clear); Bacteria Urine Rare /hpf; Bilirubin Urine Negative (Negative); Blood Urine 1+ (Negative); Color Urine Yellow (Yellow); Glucose Urine UA Negative (Negative); Ketones Urine Negative (Negative); Leukocyte Esterase Ur Trace LEU/UL (Negative); Nitrate Urine Negative (Negative); Non Pathogenic Casts 0-2; Protein Urine Negative (Negative); Specific Grav Ur 1.016 (1.001-1.035); Squamous Epithelial Cell Urine Moderate /hpf (Few); Urobilinogen Urine 0.2 mg/dL (<2.0); WBC Urine 0-5 /hpf (0-3); pH Urine 6.5 (5.0-9.0)
[2023-12-23 23:54] VITALS: BP 106/56; PULSE 64; RESP 16; O2SAT 99
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
--- NOTE | 2023-12-24 03:33 | PC.NURSE ---
see down time charting.
[2023-12-24 03:34] VITALS: BP 100/52; PULSE 56; RESP 15; O2SAT 100
[2023-12-24 05:09] VITALS: BP 104/56; PULSE 62; RESP 16; O2SAT 98
== END 2023-12-24 07:56 | disposition home or self-care (01) ==
PROVIDERS: Emergency Provider Physician Assistant; PCP Internal Medicine Infectious Disease
DX: R10.9 Unspecified abdominal pain (principal)
CPT/HCPCS: 36415; 74176; 80053; 81001; 83690; 84702; 85025; 99284

== ENCOUNTER 2024-01-19 21:21 | Emergency (ER) | payer OTHER, SELFPAY ==
--- NOTE | ~2024-01-19 | CT_ITS ---
CT of the Abdomen and Pelvis: Indication: Abdominal pain Technique: 2.5 mm axial scans were obtained through the abdomen and pelvis following intravenous adm inistration of 100 cc of Omnipaque 350. Dose reduction technique was used on this scan by utilizing a utomated exposure control and iterative reconstruction technique. The dose-length product (DLP) was 2 89.77 mGy-cm. COMPARISON: 12/24/2023 Findings: Scans through the lung bases are unremarkable. The liver, spleen, pancreas, gallbladder, adrenals and kidneys are within normal limits. No evidence of aortic aneurysm. No lymphadenopathy. No bowel obstruction or bowel wall thickening. There is no evidence to suggest acute appendicitis. Images through the pelvis were performed. Urinary bladder unremarkable. No pelvic mass seen. No ascit es. Impression: No significant abnormalities seen. Reviewed, dictated and finalized at [facility]. 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
[2024-01-19 21:32] VITALS: BP 107/59; PULSE 106; RESP 15; TEMP 36.3; O2SAT 100
[2024-01-19 21:46] LABS: Basophils Percent Auto 0.4 % (0.2-1.2); Eosinophils Absolute Auto 0.2 K/mm3 (0-0.3); Eosinophils Percent Auto 2.5 % (0-4.4); Hematocrit 37.3 % (37.0-47.0); Hemoglobin 12.3 g/dL (12.0-15.0); Immature Granulocyte Absolute 0.03 K/mm3 (0.00-0.031); Immature Granulocyte Percent A 0.3 % (0-0.5); Lymphocytes Absolute Auto 2.46 K/mm3 (0.9-3.2); Lymphocytes Percent Auto 26.5 % (18.3-44.2); Mean Corpuscular Hemoglobin 28.1 pg (26-34); Mean Corpuscular Volume 85.2 fl (80-100); Mean Platelet Volume 10.7 fl (7.4-10.4); Monocytes Absolute Auto 0.5 K/mm3 (0.1-0.6); Monocytes Percent Auto 5.2 % (2.6-8.5); Neutrophils Absolute Auto 6.1 K/mm3 (1.3-6.7); Neutrophils Percent Auto 65.1 % (45.5-73.1); Platelet Count Result 270 k/mm3 (150-375); Red Blood Count 4.38 M/mm3 (4.2-5.4); Red Cell Distribution Width 13.2 % (11.5-14.5); White Blood Count 9.3 K/mm3 (4.5-10.0)
[2024-01-19 21:52] LABS: Alanine Aminotransferase 14 U/L (6-35); Albumin Level 4.5 g/dL (3.5-5.1); Alkaline Phosphatase 77 U/L (38-126); Anion Gap 5 mmol/L (4-12); Aspartate Amino Transferase 23 U/L (14-36); Bilirubin,Total 0.3 mg/dL (0.2-1.3); Blood Urea Nitrogen 11 mg/dL (7-17); Calcium 8.8 mg/dL (8.4-10.2); Carbon Dioxide 26 mmol/L (22-30); Chloride 107 mmol/L (98-107); Estimated CRCL calculation 93 ml/min; Estimated Glomerular Filt Rate > 60; Glucose 97 mg/dL (65-110); Lipase 29 U/L (23-300); Potassium 3.8 mmol/L (3.4-5.0); Sodium 138 mmol/L (137-145)
[2024-01-19] MEDS: SODIUM CHLORIDE 0.9% IV 1,000 ML 999 ML IV CONT (23:47)
[2024-01-19 23:48] VITALS: BP 121/88; PULSE 89; RESP 18; O2SAT 99
--- NOTE | 2024-01-20 00:07 | ED_ITS ---
HPI - Abdominal Pain General Chief Complaint: Abdominal Pain Stated Complaint: n/v/R side abdominal pain Time Seen by Provider: 01/19/24 23:36 History of Present Illness HPI narrative: 23-year-old female presents to the emergency department for epigastric and right upper quadrant abdominal pain for the past couple days, worsening today. Patient states she has had some pain in her epigastrium for the past couple days but tonight she felt very nauseous and had an episode of vomiting and then had pain develop in her right upper quadrant. She states she had chicken fingers and [place] fries around 3:00 p.m. the pain started around 8:00 p.m.. She reports the pain is worse when she takes a deep breath it when she bears down. She denies dysuria hematuria, fever. Denies prior abdominal surgeries. She is currently on her menstrual cycle. Related Data Allergies Allergy/AdvReac Type Severity Reaction Status Date / Time No Known Allergies Allergy Verified 06/13/23 21:36 Review of Systems 2 Review of Systems: All systems reviewed & are unremarkable except as noted in HPI and below PMFSH Past Medical History Medical History Patient denies medical problems Social History Social History Smoking packs per day: 0.5 Smoking cigarettes per day: 10.0 Smoking status: Current every day smoker Exam 2 Narrative: GENERAL: Well-appearing, well-nourished, and in no acute distress. HEAD: Normocephalic, atraumatic. EYES: EOMI. ENT: Nares clear, no rhinorrhea or epistaxis. Mucous membranes moist. NECK: Supple. CHEST: Clear to auscultation. No respiratory distress. HEART: Regular rate and rhythm. No murmur heard. Normal peripheral pulses. ABDOMEN: Normoactive bowel sounds. Abdomen soft with tenderness in the epigastrium and right upper quadrant. No rebound or rigidity. Negative Smith's sign. No CVA tenderness EXTREMITIES: Normal range of motion. No edema. SKIN: Warm, dry, no rash. NEURO: No focal deficits. Alert and oriented x3 Course Vital Signs Vital signs: Vital Signs Temperature 97.3 F L 01/19/24 21:32 Pulse Rate 106 H 01/19/24 21:32 Respiratory Rate 15 01/19/24 21:32 Blood Pressure 107/59 L 01/19/24 21:32 Pulse Oximetry 100 01/19/24 21:32 Oxygen Delivery Room Air 01/19/24 21:32 Temperature 97.3 F L 01/19/24 21:32 Pulse Rate 89 01/19/24 23:48 Respiratory Rate 18 01/19/24 23:48 Blood Pressure 121/88 01/19/24 23:48 Pulse Oximetry 99 01/19/24 23:48 Oxygen Delivery Room Air 01/19/24 21:32 MDM - Abdominal Pain MDM Narrative Medical decision making narrative: 23-year-old female presents emergency department for epigastric and right upper quadrant abdominal pain. See HPI for further history. Triage vitals with tachycardia 106 which is since resolved. She is afebrile nontoxic appearing. Exam is significant for the above. CBC shows no leukocytosis or anemia. Chemistries are unremarkable with normal LFTs, bilirubin and lipase. Urinalysis with blood, patient is on her menstrual cycle. No evidence of UTI. is negative. CT abdomen pelvis shows normal appendix, no evidence of bowel obstruction, no other acute findings. Patient updated on workup. She received Pepcid, fluids and Zofran with improvement. Suspect gastritis. Will send Pepcid and Zofran to the pharmacy. Encouraged bland diet and close follow-up with PCP. Discussed strict ED return precautions. She is agreeable with the plan and verbalized understanding. Discharged in stable condition. Lab Data 01/19/24 21:31 01/19/24 21:31 Labs: Lab Results 01/19/24 01/20/24 01/20/24 Range/Units 21:31 00:38 01:01 WBC 9.3 (4.5-10.0) K/mm3 RBC 4.38 (4.2-5.4) M/mm3 Hgb 12.3 (12.0-15.0) g/dL Hct 37.3 (37.0-47.0) % MCV 85.2 (80-100) fl MCH 28.1 (26-34) pg MCHC 33.0 (32-36) g/dl RDW 13.2 (11.5-14.5) % Plt Count 270 (150-375) k/mm3 MPV 10.7 H (7.4-10.4) fl Immature Gran % (Auto) 0.3 (0-0.5) % Neut % (Auto) 65.1 (45.5-73.1) % Lymph % (Auto) 26.5 (18.3-44.2) % [place] % (Auto) 5.2 (2.6-8.5) % Eos % (Auto) 2.5 (0-4.4) % Baso % (Auto) 0.4 (0.2-1.2) % Lymph # (Auto) 2.46 (0.9-3.2) K/mm3 [place] # (Auto) 0.5 (0.1-0.6) K/mm3 Eos # (Auto) 0.2 (0-0.3) K/mm3 Baso # (Auto) 0.0 (0.0-0.1) K/mm3 Abs Immat Gran (auto) 0.03 (0.00-0.031) K/mm3 Absolute Neuts (auto) 6.1 (1.3-6.7) K/mm3 Absolute Nucleated RBC 0.000 (0.0-0.012) K/mm3 Nucleated RBC % 0.0 (0.0-0.2) % Sodium 138 (137-145) mmol/L Potassium 3.8 (3.4-5.0) mmol/L Chloride 107 (98-107) mmol/L Carbon Dioxide 26 (22-30) mmol/L Anion Gap 5 (4-12) mmol/L BUN 11 (7-17) mg/dL Creatinine 0.70 (0.7-1.0) mg/dL Estim Creat Clear Calc 93 ml/min Estimated GFR > 60 (59 - ) Glucose 97 (65-110) mg/dL Calcium 8.8 (8.4-10.2) mg/dL Total Bilirubin 0.3 (0.2-1.3) mg/dL AST 23 (14-36) U/L ALT 14 (6-35) U/L Alkaline Phosphatase 77 (38-126) U/L Total Protein 7.0 (6.3-8.2) g/dL Albumin 4.5 (3.5-5.1) g/dL Lipase 29 (23-300) U/L Urine Color Yellow (Yellow) Urine Appearance Cloudy H (Clear) Urine pH 6.5 (5.0-9.0) Ur Specific [place] 1.023 (1.001-1.035) Urine Protein Negative (Negative) mg/dL Urine Glucose (UA) Negative (Negative) mg/dL Urine Ketones Trace H (Negative) mg/dL Ur Blood (Man) 2+ H (Negative) Urine Nitrate Negative (Negative) Urine Bilirubin Negative (Negative) Urine Urobilinogen 0.2 (<2.0) mg/dL Leukocyte Esterase Rfl Negative (Negative) AMAYA/UL Urine RBC 21-50 H (0-2) /hpf Urine WBC 0-5 (0-3) /hpf Ur Squamous Epith Cells Occasional (Few) /hpf Urine Bacteria Rare /hpf Urine Casts 0-2 POC Urine HCG, Qual Negative (Negative) Discharge Plan Discharge Clinical Impression: Abdominal pain, epigastric Patient Disposition: Home, Self-Care Condition: Stable Instructions: Antibiotic Form, Abdominal Pain (ED) Additional Instructions: Your evaluated in the emergency department for abdominal pain. Your workup here is reassuring. Please eat a bland diet as discussed. Take medications as needed. Follow-up with her PCP. Return to the emergency department if you develop a fever, worsening or changing abdominal pain, you are unable to tolerate food or fluids, or other concerning symptoms. Patient Language: Italian Prescriptions: New famotidine 20 mg tablet 20 mg PO BID Qty: 14 0RF ondansetron 4 mg tablet,disintegrating 4 mg PO Q8H Qty: 14 0RF No Action Saline Nasal 0.65 % aerosol,spray 2 spray intranasal QID PRN (Reason: dry nasal passages) Qty: 44 0RF metronidazole 500 mg tablet 500 mg PO Q12H 7 Days Qty: 14 0RF methylprednisolone [Medrol ([place])] 4 mg tablets,dose pack See Rx Instructions .ROUTE .COMPLEX Qty: 21 0RF Rx Instructions: orally per package directions ondansetron 4 mg tablet,disintegrating 4 mg PO Q8H PRN (Reason: nausea and vomiting) Qty: 14 0RF prednisone 20 mg tablet 20 mg PO DAILY 5 Days Qty: 5 0RF acetaminophen 650 mg tablet extended release 650 mg PO .q6 hr PRN (Reason: pain) Qty: 20 0RF ibuprofen 200 mg capsule 600 mg PO Q6H PRN (Reason: pain) Qty: 20 0RF Follow-up/Referrals: Regla,Indra Crespo. [Primary Care Provider] -
[2024-01-20] MEDS: FAMOTIDINE 20 MG/2 ML VIAL IV PUSH (00:14)
[2024-01-20] MEDS: ONDANSETRON INJ 4 MG/2 ML VIAL IV PUSH (00:14)
[2024-01-20 00:55] LABS: Add Urine Microscopic? YES; Appearance Urine Cloudy (Clear); Bacteria Urine Rare /hpf; Bilirubin Urine Negative (Negative); Blood Urine 2+ (Negative); Color Urine Yellow (Yellow); Glucose Urine UA Negative (Negative); Ketones Urine Trace mg/dL (Negative); Leukocyte Esterase Ur Negative LEU/UL (Negative); Nitrate Urine Negative (Negative); Non Pathogenic Casts 0-2; Protein Urine Negative (Negative); RBC Urine 21-50 /hpf (0-2); Specific Grav Ur 1.023 (1.001-1.035); Squamous Epithelial Cell Urine Occasional /hpf (Few); Urobilinogen Urine 0.2 mg/dL (<2.0); WBC Urine 0-5 /hpf (0-3); pH Urine 6.5 (5.0-9.0)
[2024-01-20 01:03] LABS: BEDSIDEPREGUCG Negative (Negative)
[2024-01-20 02:43] VITALS: BP 123/67; PULSE 77; RESP 16; O2SAT 100
== END 2024-01-20 02:45 | disposition home or self-care (01) ==
PROVIDERS: Emergency Medicine; Emergency Provider Physician Assistant; PCP Internal Medicine Infectious Disease
DX: R10.13 Epigastric pain (principal); F17.210 Nicotine dependence, cigarettes, uncomplicated
CPT/HCPCS: 36415; 74177; 80053; 81001; 81025; 83690; 85025; 96361; 96374; 96375; 99284; J2405; J7030; Q9967

== ENCOUNTER 2024-01-28 04:28 | Emergency (ER) | payer OTHER, SELFPAY ==
[2024-01-28 04:31] VITALS: BP 121/66; PULSE 89; RESP 14; TEMP 36.6; O2SAT 100
--- NOTE | 2024-01-28 04:52 | ED.GENADULT ---
HPI - General Adult General Chief complaint: Unspecified Stated complaint: BLOOD IN STOOL X 1 Time Seen by Provider: 01/28/24 04:32 History of Present Illness HPI narrative: This is a 23-year-old female with history of constipation presenting for blood in her stool. Patient says she has been constipated for the last month. She got up this tonight and had a bowel movement. After the bowel movement she had some blood in the toilet bowl. She took a picture which showed a stool with several drops of blood around it. she has had hemorrhoids in the past. She does not have any lightheadedness dizziness chest pain or fatigue. Related Data Allergies Allergy/AdvReac Type Severity Reaction Status Date / Time No Known Allergies Allergy Verified 01/28/24 04:36 [facility] Past Medical History Medical History Patient denies medical problems Social History Social History Smoking packs per day: 0.5 Smoking cigarettes per day: 10.0 Smoking status: Current every day smoker Exam Narrative: APPEARANCE: No apparent distress. Head: atraumatic. EYES: EOMI, NOSE: Atraumatic NECK: Trachea midline RESPIRATORY: No increased rate of breathing CTAB CARDIOVASCULAR: RRR, ABDOMINAL: Non-distendedSoft nontender rectal exam: no external hemorrhoids or fissures, no blood on MELANI MUSCULOSKELETAl: No obvious deformities NEURO: Alert. Moving 4/4 extremities SKIN:: Warm, dry. Normal color PSYCHIATRIC: Normal affect Course Vital Signs Vital signs: Vital Signs Temperature 97.8 F 01/28/24 04:31 Pulse Rate 89 01/28/24 04:31 Respiratory Rate 14 01/28/24 04:31 Blood Pressure 121/66 01/28/24 04:31 Pulse Oximetry 100 01/28/24 04:31 Oxygen Delivery Room Air 01/28/24 04:31 Temperature 97.8 F 01/28/24 04:31 Pulse Rate 89 01/28/24 04:31 Respiratory Rate 14 01/28/24 04:31 Blood Pressure 121/66 01/28/24 04:31 Pulse Oximetry 100 01/28/24 04:31 Oxygen Delivery Room Air 01/28/24 04:31 Medical Decision Making MDM Narrative Medical decision making narrative: -Course: 23-year-old female presenting with concerns about blood in stool. She brought a picture which showed several small drops but not a concerning amount of blood. vital signs are stable. Her abdominal exam is benign. She has a history of constipation hemorrhoids to the likely cause of her minimal bleeding. Patient be discharged home. Instructions for hemorrhoid treatment. Recommend she start taking fiber. -DDX includes but is not limited to: Hemorrhoids, constipation Vital Signs Vital Signs: Vital Signs Temperature 97.8 F 01/28/24 04:31 Pulse Rate 89 01/28/24 04:31 Respiratory Rate 14 01/28/24 04:31 Blood Pressure 121/66 01/28/24 04:31 Pulse Oximetry 100 01/28/24 04:31 Oxygen Delivery Room Air 01/28/24 04:31 Temperature 97.8 F 01/28/24 04:31 Pulse Rate 89 01/28/24 04:31 Respiratory Rate 14 01/28/24 04:31 Blood Pressure 121/66 01/28/24 04:31 Pulse Oximetry 100 01/28/24 04:31 Oxygen Delivery Room Air 01/28/24 04:31 Discharge Plan Discharge Clinical Impression: Blood in feces, Constipation Patient Disposition: Home, Self-Care Condition: Stable Instructions: Antibiotic Form, Constipation (DC), Hemorrhoids (DC) Additional Instructions: You were seen in the emergency department for blood in your stool. The bleeding is likely due to constipation or hemorrhoids. Please take fiber on a daily basis. Return if you develop bowel movements that severely bloody, severe abdominal pain or fatigue weakness or lightheadedness. Please follow-up with your primary care physician for further management Patient Language: Arabic Prescriptions: No Action Saline Nasal 0.65 % aerosol,spray 2 spray intranasal QID PRN (Reason: dry nasal passages) Qty: 44 0RF metronidazole 500 mg tablet 500 mg PO Q12H 7 Days Qty: 14 0RF methylprednisolone [Medrol ([place])] 4 mg tablets,dose pack See Rx Instructions .ROUTE .COMPLEX Qty: 21 0RF Rx Instructions: orally per package directions ondansetron 4 mg tablet,disintegrating 4 mg PO Q8H PRN (Reason: nausea and vomiting) Qty: 14 0RF prednisone 20 mg tablet 20 mg PO DAILY 5 Days Qty: 5 0RF famotidine 20 mg tablet 20 mg PO BID Qty: 14 0RF ondansetron 4 mg tablet,disintegrating 4 mg PO Q8H Qty: 14 0RF acetaminophen 650 mg tablet extended release 650 mg PO .q6 hr PRN (Reason: pain) Qty: 20 0RF ibuprofen 200 mg capsule 600 mg PO Q6H PRN (Reason: pain) Qty: 20 0RF Follow-up/Referrals: Regla,Catie Crespo [Primary Care Provider] - 1 Week (constipation )
== END 2024-01-28 05:22 | disposition home or self-care (01) ==
LOC: ANHED 05:03
PROVIDERS: Emergency Provider Emergency Medicine; PCP Internal Medicine Infectious Disease
DX: K92.1 Melena (principal); K59.00 Constipation, unspecified; F17.210 Nicotine dependence, cigarettes, uncomplicated
CPT/HCPCS: 99281

== ENCOUNTER 2024-02-22 19:37 | Emergency (ER) | payer OTHER, SELFPAY ==
--- NOTE | ~2024-02-22 | XR_ITS ---
CHEST RADIOGRAPH, PA AND LATERAL CLINICAL HISTORY: lung pain, cough . COMPARISON: 12/17/2023 TECHNIQUE: PA and lateral views of the chest. FINDINGS The cardiomediastinal silhouette is unremarkable. The lungs are clear. Visualized osseous structures and soft tissues are unremarkable. IMPRESSION: No focal infiltrate or effusion. Reviewed, dictated and finalized at location A. [employer] [employer]
[2024-02-22 19:59] VITALS: BP 114/64; PULSE 98; RESP 16; TEMP 36.3; O2SAT 99
== END 2024-02-22 23:40 | disposition left against medical advice (07) ==
PROVIDERS: Emergency Provider Physician Assistant; PCP Internal Medicine Infectious Disease
DX: R05.9 Cough, unspecified (principal)
CPT/HCPCS: 71046; 99199

== ENCOUNTER 2024-03-10 15:09 | Emergency (ER) | payer OTHER, SELFPAY ==
--- OUTSIDE RECORDS SUMMARY | 2024-03-10 15:12 | XMS_ITS | Referral Summary ---
Author Organization [facility] at the Medical Office Building Address [address] [place] [phone] Care Team Providers Care Director Skills Name Role Phone Zak Arauz MD Primary Care Provider Allergies No known active allergies Medications ferrous sulfate 325 mg (65 mg of elemental iron) tabletIndication s:Iron Deficiency Anemia Take 1 tablet (325 mg total) by mouth 2 (two) times a day Active hydrocortisone (ANUSOL-HC) 2.5 % rectal cream APPLY SPARINGLY TO AFFECTED AREA 2 TO 4 TIMES A DAY 3 Active acetaminophen (TYLENOL) 500 mg tablet Take 2 tablets (1,000 mg total) by mouth every 6 (six) hours as needed for pain 30 tablet 3 3 Active Additional Information Patient not taking.Reported on 09/03/2022 cyclobenzaprine (FLEXERIL) 10 mg tablet Take 1 tablet (10 mg total) by mouth 3 (three) times a day as needed for muscle spasms 30 tablet 3 Active Additional Information Patient not taking.Reported on 09/03/2022 28 mg iron- 800 mcg tablet Take 1 tablet by mouth daily 3 Active azithromycin (ZITHROMAX) 250 mg tablet 3 Active doxycycline monohydrate (MONODOX) 100 mg capsule 3 Active SUMAtriptan (IMITREX) 100 mg tablet 3 Active famotidine (PEPCID) 20 mg tabletIndication s:Heartburn,gary roesophageal reflux disease Take 1 tablet (20 mg total) by mouth 2 (two) times a day 60 tablet 3 Active Additional Information Patient not taking.Reported on 10/07/2022 ondansetron (ZOFRAN) 4 mg tablet Take 1 tablet (4 mg total) by mouth every 8 (eight) hours as needed for nausea or vomiting 60 tablet 3 3 Active naproxen (NAPROSYN) 500 mg tablet Take 1 tablet (500 mg total) by mouth 2 (two) times a day with meals 30 tablet 3 Active polyethylene glycol (MIRALAX) 17 gram packetIndication s:constipation Take 1 packet (17 g total) by mouth daily 30 packet 3 Active Active Problems Problem Noted Date Diagnosed Date care following vaginal delivery 06/28 Overview (07/01/2022): # ID: Afebrile. No signs/symptoms of infection. # Heme: EBL 400 mL. No symptoms acute blood loss anemia. #HSV: no active lesions # CV/Pulm: Had one mild range pressure intrapartum. For close monitoring. Not yet meeting criteria for hypertensive disorder of . Pt persistently tachycardic. EKG sinus tach. Pt recevied 500cc bolus overnight. Orthostatic vitals positive, given additional 1 L LR with improvement in HR. # GI/: Tolerating PO. Voiding spontaneously. # Pain: Controlled with above regimen. # MOC: Declines until visit. # MOF: . Urine drug screen not indicated. Patient informed of results: N/A. # Post DVT prophylaxis: The patient has the following MAJOR risk factors none and the following MINOR risk factors BMI 30-39 and none. SCDs ordered for VTE prophylaxis. # Disposition: Follow up task sent to [facility] scheduling pool. Desires discharge home today. Macrosomia 05/14/2022 Overview (06/11/2022): EFW and AC >95%ile. Dating is accurate and diabetes screen is negative. S/p counseling regarding risks Continue serial growths- pt states if her baby is >10 lbs she would be interested in an IOL. Plan for repeat growth at 40w Assessment & Plan (05/20/2022 2:02 PM CDT): Reviewed LGA growth. Her diabetes screen was normal. Reviewed risks of LGA growth including increased risk for C/S delivery and operative delivery and briefly discussed risks of both. Discussed risks of shoulder dystocia. Reviewed increased risk of hemorrhage. Repeat growth was ordered. Encouraged she consider delivery at 39 weeks. arrhythmia affecting , antepartum 05/13/2022 Overview (05/14/2022): When she was seen in the [facility] there was concern for a dropped beats and a arrhythmia and she was referred to MFM. A arrhythmia was also heard in her primary OB office. She was scanned by Marian [facility] (care everywhere) which did not note an arrhythmia but did notice a prominent foramen ovale aneurysm. 05/13: Formal ultrasound with MFM - no evidence of arrhythmia 5: Formal echo: normal cardiac anomaly but with possible narrowed arch (plan for echo) Currently no evidence of frequent arrhythmia - we anticipate that the arrhyhtmia noted was most likely intermittent PACs. Very rarely can PACs progress into a tachyarrhythmia (1-2% of cases) thus we recommend weekly heart rate checks. Plan: Weekly heart rate checks in clinic Growth ultrasounds every 4 weeks Assessment & Plan (06/11/2022 1:36 PM CDT): Normal rate and rhythm 06/11/2022 Assessment & Plan (06/04/2022 12:42 PM CDT): Normal rate and rhythm today Assessment & Plan (05/20/2022 2:01 PM CDT): Normal rate and rhythm today Smoking 05/13/2022 Overview (05/18/2022): Previously counseled She declines any nicotine replacement Plan: Encourage cessation HSV infection 05/12/2022 Overview (06/11/2022): Noted on chart review. Patient denies history of outbreak. [x] Suppression at 36w- discussed and rx sent, reviewed importance 06/11/2022 Maternal chlamydia infection , history of, currently 05/12/2022 Supervision of other high risk , antepa rtum 05/12/2022 Overview (06/23/2022): [facility] RN: Mariah Rodriguez - [phone] [x] Full [facility] Care; [x] Blue Team Referring Provider: [facility] - Hamida Morales [x] Dating Criteria: L = 8wk ultrasound [x] Labs: Rh [O+], Ab [neg], Rubella [Imm], HIV [neg], HepBSAg [neg], RPR [NR], Hep C [NOT DONE], Varicella [NOTDONE], GC/CT [neg] [x] Genetic Screening: NIPT LR [x] CBC/Hgb: 10.6/32.5/244 [x] UCx: neg [x] Pap: 06/2020 WNL [] LD ASA (if indicated) starting at 12 weeks: [x] EPDS [2]; PNBHS referral (if indicated) 2nd Tri Labs: [x] Anatomy ultrasound: arrythmia, LGA [x] CBC/Ferritin/1hr gtt at 24-28wks: 9.8/31.2 GTT: 105 [] Flu Shot (Oct-Jan): [x] Tdap (27-36wks): 06/04/2022 [] COVID Vaccine: 3rd Tri Labs: [x] CBC/HIV/RPR: H&H: 30.8, RPR [NR], HIV [neg] [x] GBS: Negative on 06/04/2022 [x] testing: Pt states she is unable to feel regular movement, this is not a change and has been persistent the whole - plan for weekly testing. Counseling [] MOD: IOL- discussed benefits of 39 week IOL, pt declines but willing to discuss following 40w growth US [x] Place of delivery: [facility] [] Last clinic visit SVE: [] IOL start agent: [x] Epidural: hoping to avoid, reviewed risks of general anesthesia in the setting of an emergency C/S- pt considering [] Consents signed: [x] MOC: Valentin [x] Method of feeding: breast [x] Relief Pharmacist: [x] PP Depression Discussed: plan reviewed and scanned into media. Shortness of breath 04/30/2022 Depression 04/30/2022 Chest pain 04/30/2022 Overview (05/20/2022): Reports ongoing chest pain which started prior to . She reports an EKG showed some irregular beats; however an EKG in our system from 03/2022 was NSR. Currently being worked up by cardiology with a holter monitor (to be turned in 05/14) and a maternal echo (05/26) Low suspicion for acute process today. Plan: - Obtain cardiology records - Echo scheduled 05/26 - follow up results of holter monitor- results pending Assessment & Plan (05/20/2022 2:00 PM CDT): Strict hospital precautions reviewed Cardiac murmur 04/30/2022 Palpitation 04/30/2022 Sleep apnea 04/30/2022 Resolved Problems Problem Noted Date Diagnosed Date Resolved Date with 35 completed weeks gestation 10/22/2020 05/18/2022 Immunizations Name Administration Dates Next Due MMR 07/01/2022(Deferred: No longer n eeded) Tdap 06/04/2022 Varicella 07/01/2022 Social History Tobacco Use Types Packs/Day Years Used Date Smoking Tobacco: Former Cigarettes Smokeless Tobacco: Never Tobacco Cessation:Counseling Given: Not Answered Social Connection and Isolat ion Panel [NHANES] Answer Date Recorded In a typical week, how many times do you talk on the phone with family, friends, or neighbors? Twice a week 06/30/2022 How often do you get togethe r with friends or relatives? Twice a week 06/30/2022 How often do you attend chur ch or yarsani services? More than 4 times per year 06/30/2022 Do you belong to any clubs o r organizations such as protestant groups, unions, fraternal or athletic groups, or school groups? No 06/30/2022 How often do you attend meet ings of the clubs or organizations you belong to? Never 06/30/2022 Are you , , di vorced, , never , or living with a partner? Never 06/30/2022 AUDIT-C Answer Date Recorded Q1: How often do you have a drink containing alcohol? Never 06/28/2022 Q2: How many drinks containi ng alcohol do you have on a typical day when you are drinking? Patient does not drink Q3: How often do you have si x or more drinks on one occasion? Never 06/28/2022 Overall Financial Resource Strain (CARDIA) Answe r Date Recorded How hard is it for you to pa y for the very basics like food, housing, medical care, and heating? Not hard at all 06/30/2022 Hunger Vital Sign Answer Date Recorded Within the past 12 months, y ou worried that your food would run out before you got the money to buy more. Never true 07/01/19 Within the past 12 months, t he food you bought just didn't last and you didn't have money to get more. Never true 06/30/2022 PRAPARE - Transportation Answer Date Re corded In the past 12 months, has l ack of transportation kept you from medical appointments or from getting medications? Yes 06/09 In the past 12 months, has l ack of transportation kept you from meetings, work, or from getting things needed for daily living? Yes 06/30/2022 Housing Stability Vital Sign Answer Mathieu e Recorded In the last 12 months, was t here a time when you were not able to pay the mortgage or rent on time? No 06/30/2022 In the last 12 months, how many places have you lived? 1 06/30/2022 In the last 12 months, was t here a time when you did not have a steady place to sleep or slept in a chcf (including now)? No 06/30/2022 [place] Depression Scale Answer Date Recorded [place] Depression Scale Total 3 09/03/2022 The thought of harming myself has occurred to me . Never 09/03/2022 Personal Safety Answer Date Recorded Have you ever been in or are you currently in a harmful physical or emotional relationship or is someone making you feel afraid or unsafe? 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 Gender Identity Not on file Sexual Orientation Not on file Last Filed Vital Signs Vital Sign Reading Time Taken Comments Blood Pressure 117/57 09/27/2023 3:34 PM CDT Pulse 88 09/27/2023 3:34 PM CDT Temperature 36.5 ??C (97.7 ??F) 09/27/2023 3:34 PM CD T Respiratory Rate 18 09/27/2023 3:34 PM CDT Oxygen Saturation 100% 09/27/2023 3:34 PM CDT Inhaled Oxygen Concentration - - Weight 65.8 kg (145 lb) 09/27/2023 3:34 PM CDT Height 162.6 cm (5' 4 ) 05/28/2023 11:33 PM CDT Body Mass Index 24.89 05/28/2023 11:33 PM CDT Plan of Treatment Not on file Procedures Procedure Name Priority Date/Time Associated Diagnosis Comments N. GONORRHOEAE/C. TRACHOMATIS AMPLIFICATION STAT 02/05/2023 10:21 AM VENEER CLIPPER from Last 3 Months or Most Recently Relevant to Health Maintenance Results * N. gonorrhoeae/C. trachomatis Amplification Urine (02/05/2023 10:21 AM VENEER CLIPPER) C. trachomatis Not Detected Not Detected DEBBIE ARREOLA Comment:Testing performed by : [facility], [address] [place] [address]., [id number] N. gonorrhoeae Not Detected Not Detected DEBBIE ARREOLA Comment: Interpretive Data This assay detects Chlamydia trachomatis and Neisseria gonorrhoeae by nucleic acid amplification testing (NAAT). This assay has been cleared by the [place] Food and Drug administration. The performance characteristics of this test have been verified by the [facility]. The performance characteristics of this test have not been evaluated in individuals less than 14 years of age. Current Interpretive Data last revised 2022. Testing performed by: [facility], [address] [place] [address]., [id number] Urine (None) 02/05/2023 10:2 1 AM VENEER CLIPPER 02/05/2023 10:30 AM VENEER CLIPPER us Ana Paula [facility] MICROBIOLOGY - GENERAL ORDER RANDY Final Result DEBBIE ARREOLA [address] [facility] [place] [employer] [place] [address] from Last 3 Months or Most Recently Relevant to Health Maintenance Insurance [employer] [facility] [employer] [facility] [employer] [facility] Advance Directives For more information, please contact: [phone] * Full Code (Latest Code Status on File) Date Activated Date Inactivated Comments 06/30/2022 12:39 AM 07/01/2022 8:58 PM * Full Code Date Activated Date Inactivated Comments 06/28/2022 9:29 PM 06/30/2022 12:39 AM Full CPR i n case of cardiopulmonary arrest Care Teams Director Skills Relationship Specialty Start Date End Date Zak Arauz MD [address] [place] [address] PCP - General Internal Medicine 03/16/22
--- OUTSIDE RECORDS SUMMARY | 2024-03-10 15:12 | XMS_ITS | Referral Summary ---
Author Organization [facility] Address [address] [place] [address] Care Team Providers Care Trout Farmer Name Role Phone Unavailable Primary Care Provider Unavailabl e Source Comments [facility],non-owned Affiliates and Associated Physician Practices is amultiple site organization consisting of ambulatory clinics and hospital sitesin [place], [place], [place] and [place]. This disclosure is being madepursuant to the Care Everywhere program and may not contain all information available regarding this patient. Last updated 17.[facility] Allergies No known active allergies Social History Tobacco Use Types Packs/Day Years Used Date Smoking Tobacco: Never Assessed Sex and Gender Information Value Date Recorded Sex Assigned at Not on file Gender Identity Not on file Sexual Orientation Not on file Last Filed Vital Signs Vital Sign Reading Time Taken Comments Blood Pressure 121/64 10/08/2022 10:49 PM CDT Pulse 73 10/08/2022 10:49 PM CDT Temperature 36.9 ??C (98.5 ??F) 10/08/2022 10:49 PM C DT Respiratory Rate 14 10/08/2022 10:49 PM CDT Oxygen Saturation 97% 10/08/2022 10:49 PM CDT Inhaled Oxygen Concentration - - Weight 68.9 kg (152 lb) 10/08/2022 10:49 PM CDT Height 162.6 cm (5' 4 ) 10/08/2022 10:49 PM CDT Body Mass Index 26.09 10/08/2022 10:49 PM CDT Plan of Treatment Not on file
--- OUTSIDE RECORDS SUMMARY | 2024-03-10 15:12 | XMS_ITS | Clinical Summary ---
Author Organization [facility] at the Medical Office Building Address [address] [place] [phone] Care Team Providers Care Conversion Man Name Role Phone Zak Arauz MD Primary [...] # Disposition: Follow up task sent to [facility] scheduling pool. Desires discharge home today. [...] (05/14/2022): When she was seen in the [facility] there was concern for a dropped beats and a arrhythmia and she was referred to MFM. A arrhythmia was also heard in her primary OB office. She was scanned by Marian [facility] (care everywhere) which did not note [...] risk , antepa rtum 05/12/2022 Overview (06/23/2022): [facility] RN: Mariah Rodriguez - [phone] [x] Full [facility] Care; [x] Blue Team Referring Provider: [facility] - Hamida Morales [x] Dating Criteria: [...] Valentin [x] Method of feeding: breast [x] Missile Inspector Preflight: [x] PP Depression Discussed: plan reviewed and [...] longer n eeded) Tdap 06/04/2022 Varicella 07/01/2022 Medical History Medical History Date Comments Urinary tract infection Shortness of breath due to Systolic murmur HSV infection Maternal chlamydia infection, history of, curren tly Social History Tobacco Use Types Packs/Day Years [...] often do you attend chur ch or pentecostal services? More than 4 times per year 06/30/2022 Do you belong to any clubs o r organizations such as sikh groups, unions, fraternal or athletic groups, or [...] place to sleep or slept in a skilled nursing (including now)? 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 Gender Identity Not on file Sexual Orientation Not on file Obstetrics History Para Term AB IAB SAB Ectopic Multiple Livin g Live Births 2 2 2 0 0 0 2 2 Date Outcome GA Total Labor Labor/2nd/3rd Weight Sex Type Anes PTL Nataliia A1 A5 Name Clin 2020 Term 40w 0d 3.232 kg (7 lb 2 oz) F Vag-Sp ont Epidur al N Livin g Complications:None Delivery Location:[facility] 2022 Term 39w 6d 21h 40m 21h 21m/0h 12m/0h 07m 4.29 kg (9 lb 7.3 oz) F Vagina l Combin ed Spinal /Epidu ral N Livin g 3 [address] ,[address] NELA Lugo , Carson Lauren MD Complications:Shoulder Dysto per Delivery Location:[facility] ([facility]) Last Filed Vital Signs Vital Sign Reading [...] 05/28/2023 11:33 PM CDT Plan of Treatment Health Maintenance Due Date Last Done Comments Cervical Cancer Screening 2000 Hepatitis C Screening 2000 Meningococcal B Vaccine (1 o f 2 - Patient Seeks Protection) 2016 Regular Well Visit/Exam 18-64 2018 Depression Screening 09/04/2023 09/03/2022 Influenza Vaccine (#1) 2023 12/07/2012, 2004 Chlamydia and Gonorrhea (GC/ CT) Screening 02/06/2024 02/05/2023, 11/01/2022, 04/20/2022 DTaP/Tdap/Td Vaccine (7 - Td or Tdap) 06/04/2032 06/04/2022, 07/06/2012, 12/30/2001, Additional history exists Pneumococcal vaccine <65 Completed 003, 09/19/2001, 2000 HPV Vaccines Completed 08/25/2013, 08/09, 07/06/2012 Varicella Vaccines Completed 07/01/2022, 0 05/15/2014, 09/19/2001 Procedures Procedure Name Priority Date/Time Associated Diagnosis Comments N. GONORRHOEAE/C. TRACHOMATIS AMPLIFICATION STAT 02/05/2023 10:21 AM GENERAL HOUSE WORKER from Last 3 Months or Most Recently Relevant to Health Maintenance Results * N. gonorrhoeae/C. trachomatis Amplification Urine (02/05/2023 10:21 AM GENERAL HOUSE WORKER) C. trachomatis Not Detected Not Detected DEBBIE Comment:Testing performed by : [facility], [address] [place] [address]., [id number] N. gonorrhoeae Not Detected Not Detected DEBBIE Comment: Interpretive Data This assay detects Chlamydia trachomatis and Neisseria gonorrhoeae by nucleic acid amplification testing (NAAT). This assay has been cleared by the [place] Food and Drug administration. The performance characteristics of this test have been verified by the [facility]. The performance characteristics of this test have not been evaluated in individuals less than 14 years of age. Current Interpretive Data last revised 2022. Testing performed by: [facility], [address] [place] [address]., [id number] Urine (None) 02/05/2023 10:2 1 AM GENERAL HOUSE WORKER 02/05/2023 10:30 AM GENERAL HOUSE WORKER us Ana Paula [facility] MICROBIOLOGY - GENERAL ORDER RANDY Final Result DEBBIE ARREOLA [address] [facility] Department [place] [address] from Last 3 Months or Most Recently Relevant to Health Maintenance Insurance [employer] BETTER [facility] [place] [employer] BETTER [facility] [employer] [facility] Advance Directives For more information, please contact: [phone] * Full Code (Latest Code Status on File) Date Activated Date Inactivated Comments 06/30/2022 12:39 AM 07/01/2022 8:58 PM * Full Code Date Activated Date Inactivated Comments 06/28/2022 9:29 PM 06/30/2022 12:39 AM Full CPR in case of cardiopulmonary arrest Care Teams Conversion Man Relationship Specialty Start Date End Date Zak Arauz MD [address] [place] [place] [id number] PCP - General Internal Medicine 03/16/22
--- OUTSIDE RECORDS SUMMARY | 2024-03-10 15:12 | XMS_ITS | CONTINUITY OF CARE DOCUMENT ---
Author Name jin abdi Address Unknown Organization [facility] Address [address] [place] [address] Phone [phone] Care Team Providers Care [employer] Ii Assembler Name Role Phone Sammie Coates MD Unavailable [phone] DASHAWN LOPEZ MD Unavailable DASHAWN LOPEZ MD Unavailable PROBLEMS Condition Status Date Provider Notes Cardiology examination completed 3 - Brad Burrell Palpitation active Monisha Carlos Chest pain active Monisha Carlos Shortness of breath active Monisha Romo eyer Depression active Monisha Carlos with 35 completed weeks gestation active Brad Burrell Sleep apnea, mild active Brad Burrell Cardiac murmur active Monisha Carlos Tobacco abuse active Monisha Carlos Dizziness active Sammie Coates MD Constipation active Sammie Coates MD Anemia active Brad Pardoi ENCOUNTERS Date Type Provider Location Encounter Diag nosis - In-person encounter Office Visit Sammie Coates MD [place] [facility] - In-person encounter Office Visit Donnie Hawkins MD [place] [facility] Cardiology examinationPregnancy with 35 completed weeks gestationSleep apnea, mildAnemia - In-person encounter Office Visit Sammie Coates MD [place] [facility] DizzinessConstipation - In-person encounter Office Visit Sammie Coates MD [place] [facility] - In-person encounter Office Visit Sammie Coates MD [place] [facility] PalpitationChest painShortness of breathDepressionPregnancy with 35 completed weeks gestationSleep apnea, mildCardiac murmurTobacco abuse VITAL SIGNS Date Observation Value Provider Body Mass Index (Ratio) 25.57 kg/m2 Fe Coates MD blood pressure, cuff size regular Ke rri Grpaula blood pressure, diastolic 70 mm[Hg] Ke rri Twylaer blood pressure, systolic 122 mm[Hg] Paolo ri [place] oxygen saturation, oximetry 98 % Kellie Osirisnfalphonseer respiratory rate E&M 12 /min Kellie G quita pulse rate 75 /min Kellie Etta er weight E&M 149 [lb_av] Kellie Kimberlynetariqe er height E&M 64 [in_i] Kellie Etta er Body Mass Index (Ratio) 25.06 kg/m2 Brad Burrell blood pressure, cuff size regular Ke rri Gruenenfelder blood pressure, diastolic 60 mm[Hg] Ke rri Gruenenfelder blood pressure, systolic 110 mm[Hg] Paolo ri Gruenenfelder oxygen saturation, oximetry 99 % Kellie Gruenenfelder respiratory rate E&M 12 /min Kellie G ruenenfelder pulse rate 98 /min Kellie Quiles weight E&M 146 [lb_av] Kellie Quiles height E&M 64 [in_i] Kellie Quiles Body Mass Index (Ratio) 25.23 kg/m2 Fe Coates MD blood pressure, diastolic 69 mm[Hg] Li nkLog blood pressure, systolic 105 mm[Hg] Lissy blood pressure, cuff size regular Ja blood pressure, diastolic 69 mm[Hg] Ja et blood pressure, systolic 105 mm[Hg] Jar ret pulse rate 98 /min Lorenzo y respiratory rate E&M 12 /min Lorenzo oxygen saturation, oximetry 98 % Lorenzo weight E&M 147 [lb_av] Lorenzo y height E&M 64 [in_i] Lorenzo y Body Mass Index (Ratio) 30.38 kg/m2 Fe Coates MD blood pressure, diastolic 63 mm[Hg] Mary Anne nkLogic blood pressure, systolic 118 mm[Hg] Lissy kLogic blood pressure, diastolic 63 mm[Hg] Blank mclain Fisher blood pressure, systolic 118 mm[Hg] [facility] bulmaro [place] oxygen saturation, oximetry 98 % Thais Fisher pulse rate 86 /min Thais agustin respiratory rate E&M 16 /min Yareli Fisher blood pressure, cuff size large Blank Fisher weight E&M 177 [lb_av] Thais agustin height E&M 64 [in_i] Thais agustin Body Mass Index (Ratio) 29.69 kg/m2 Roxanna mg Starmeyer blood pressure, diastolic 62 mm[Hg] Mary Anne nkLogic blood pressure, systolic 111 mm[Hg] Lissy kLogic blood pressure, diastolic 62 mm[Hg] Marsha hua Miky blood pressure, systolic 111 mm[Hg] Any mable Bolaños respiratory rate E&M 16 /min Niurka ricketts oxygen saturation, oximetry 97 % Niurka Bolaños pulse rate 94 /min Niurka Bolaños blood pressure, cuff size large An melita Bolaños weight E&M 173 [lb_av] Niurka Bolaños height E&M 64 [in_i] Niurka Bolaños ALLERGIES No Known Drug Allergies HISTORY OF MEDICATION USE Medication Status Instructions Dates Provider Indications Com ments cefdinir 300 mg capsule active Kellie Grneyer nitrofurantoin monohyd/m-cryst 100 mg capsule active Kellie Twylaer acetaminophen 500 mg tablet completed - Pebbles Cross NP ondansetron 4 mg tablet,disintegra ting completed - Pebbles Cross NP valacyclovir 500 mg tablet completed - Pebbles Cross NP 28 mg iron- 800 mcg tablet completed TAKE 1 TABLET BY MOUTH EVERY DAY - Pebbles Cross NP ferrous sulfate 325 mg (65 mg iron) tablet completed - Pebbles Cross NP SOCIAL HISTORY Date Observation Value Provider drug use no Sammie akins MD alcohol use no Sammie akins MD smoking history, tot al pack/day 1 Sammie Coates MD cigarette use yes Sammie felix MD smoking status Current every day smoker S maria del carmen Coates MD social history reviewed E&M revi ewed - no changes required Brad Burrell social history reviewed E&M revi ewed - no changes required Pebbles Cross [facility] social history E&M S moking History: Richelle judd currently smokes every day. Pebbles Pachecori [facility] drug use no Pebbles Sanchezreri [facility] alcohol use no Pebbles Sanchezreri [facility] smoking status Current every day smoker V brent [facility] number of grandchildren Sammie Coates MD Pebbles [facility]ache[facility] social history reviewed E&M revi ewed - no changes required Pebbles Pachecori [facility] social history E&M S moking History: Richelle judd is a former smoker. Pebbles Pachecori [facility] drug use no Pebbles [facility] alcohol use no Pebbles Pachecori [facility] social history reviewed E&M revi ewed - no changes required Pebbles Pachecori INDER social history E&M S moking History: Richelle judd currently smokes every day. Pebbles Pachecoparviz LOVING smoking history, tot al pack/day 1 Niurka Bolaños cigarette use yes Niurka Bolaños smoking status Current every day smoker A andie Bolaños INSURANCE PROVIDERS Payer name Policy type / Coverage type [facility] democrat ID [employer]ET[employer] [facility] Medicaid [id number] ADVANCE DIRECTIVES Name Date DISCUSSED - NO DECISION MADE TREATMENT PLAN Date Name Performer [id number],C, P binta still has palpitations off and on SHE IS AT 36WKS WILL HOLD OFF ON ADDING BB OR ANY CCB UNTIL SHE DELIVERS AND SEE IF SHE STILL HAS PALPITATIONS H /H 9.9/ 31.0 (05/14/22) T elesentry 04/30-05/14/22 S inus Rhythm with rare Ventricular ectopics and rare Supraventricular ectopics. The a verage heart rate was 96bpm with a maximum rate of 166bpm and a minimum rate of 57bpm. VE?s were documented as a couplet and isolated beats. SVE?s were d ocumented as isolated beats. December 04, 2022 S AY PALPS ARE WORSE NOW THAN BEFORE NOT BREAST FEEDING W ILL NEED TO CONSIDER USING A BB IF SHE CONTINUES TO HAVE PALPS WILL TRY REPEATING TELE FOR 48 HRS TO SEE IF SHE HAS RECURRENT SVE December 25, 2022 n o significant arrythmias were observed on holter, she is anemic which is likely culprit for her tachycardia and sob, would recommend PCP follow up Brad Burrell [id number],C, P binta stil has chest pain HAS HIATIAL HERNIA AND OR ACID REFLUX O K FOR MALLOX OR MYLANTA December 04, 2022 P binta reports sharp/stabbing mostly R sided chest pains S USPECT REPRODUCIBLE CP THE MAIN ISSUE SHE IS ALSO PENDING A GI W/U IN FebDecember 25, 2022 u nlikely cardiac etiology, she is to consult GI to rule out GERD Brad Burrell [id number],C,H gb 9.9, this is likely culprit for her sxs, advised her to take her iron medication and follow up with AUTOMOTIVE TEACHER, PCP Brad Burrell [id number],C, P binta still experiencing shortness of breath S LEEP W/U WAS WITH MILD AVELINA BUT O2 SAT WAS GOOD AROUND 96% S ummary & Diagnosis H ome sleep study shows an AHI of 7.9 which is consistent with a diagnosis of mild AVELINA. During the supine position, t he AHI increased to 10. Mean oxygen saturation of 96%, with the lowest being 87%. ECHO CONCLUSIONS: Echo 05/2022 1 . Normal left ventricular systolic function. Normal left ventricular size. Normal left ventricular wall thickness. Normal left v entricular diastolic function. E/E': 5.7 Left ventricular ejection fraction is measured at 60 %. 2 . Normal right ventricular size. Normal right ventricular systolic function. 3 . Normal appearing mitral valve leaflets. There is trace physiologic mitral valve regurgitation. 4 . Normal appearing tricuspid valve leaflets. There is trace physiologic tricuspid valve regurgitation. IVC is normal in size with n ormal respiratory response. Unable to adequately assess the RVSP. December 04, 2022 R eports continued SOB with exertion N O ISSUES WITH PREGANCY HAD DELIVERED AT [facility] G ETS SOB WITH WALKING OR S TARTED SMOKING 2-3 PER DAY N O PRIOR HX OF ASTHMA December 25, 2022 S he continues to be SOB with very minimal exertion, differential dx related to pulmonary process vs anemia Brad Burrell [id number],C, M ild sleep apnea per ecent sleep study 05/2021. Autopap/Cpap recommended WILL ARRANGE FOR CPAP/AUTOPAP December 04, 2022 H as not been able to get for a sleep titration study due to lack of children's literature professor Pebbles Cross NP [id number],S,C ONCLUSIONS: 1 . Normal left ventricular systolic function. Normal left ventricular size. Normal left ventricular wall thickness. Normal left v entricular diastolic function. E/E': 5.7 Left ventricular ejection fraction is measured at 60 %. 2 . Normal right ventricular size. Normal right ventricular systolic function. 3 . Normal appearing mitral valve leaflets. There is trace physiologic mitral valve regurgitation. 4 . Normal appearing tricuspid valve leaflets. There is trace physiologic tricuspid valve regurgitation. IVC is normal in size with n ormal respiratory response. Unable to adequately assess the RVSP. E lectronically Signed By: Caron Coates MD, FACC 2 023-05-26 14:40:38 CDT C C: Sammie Coates MD, FACC Pebbles Tay LOVING [id number],S, P atient still has palpitations off and on SHE IS AT 36WKS WILL HOLD OFF ON ADDING BB OR ANY CCB UNTIL SHE DELIVERS AND SEE IF SHE STILL HAS PALPITATIONS H /H 9.9/ 31.0 (05/14/22) T elesentry 04/30-05/14/22 S inus Rhythm with rare Ventricular ectopics and rare Supraventricular ectopics. The a verage heart rate was 96bpm with a maximum rate of 166bpm and a minimum rate of 57bpm. VE?s were documented as a couplet and isolated beats. SVE?s were d ocumented as isolated beats. December 04, 2022 S AY PALPS ARE WORSE NOW THAN BEFORE NOT BREAST FEEDING W ILL NEED TO CONSIDER USING A BB IF SHE CONTINUES TO HAVE PALPS WILL TRY REPEATING TELE FOR 48 HRS TO SEE IF SHE HAS RECURRENT SVE Pebbles Cross [facility] [id number],C, T he Patient was encouraged to stop smoking. Pebbles Cross [facility] [id number],S,N EEDS TO SEE GI SHE HAD NATURAL CHILDBIRTH AND HAS NOTICED ISSUES WIHT BM SINCE DELIVERY Pebbles Cross [facility] [id number],S, P atient still experiencing shortness of breath S LEEP W/U WAS WITH MILD AVELINA BUT O2 SAT WAS GOOD AROUND 96% S ummary & Diagnosis H ome sleep study shows an AHI of 7.9 which is consistent with a diagnosis of mild AVELINA. During the supine position, t he AHI increased to 10. Mean oxygen saturation of 96%, with the lowest being 87%. ECHO CONCLUSIONS: Echo 05/2022 1 . Normal left ventricular systolic function. Normal left ventricular size. Normal left ventricular wall thickness. Normal left v entricular diastolic function. E/E': 5.7 Left ventricular ejection fraction is measured at 60 %. 2 . Normal right ventricular size. Normal right ventricular systolic function. 3 . Normal appearing mitral valve leaflets. There is trace physiologic mitral valve regurgitation. 4 . Normal appearing tricuspid valve leaflets. There is trace physiologic tricuspid valve regurgitation. IVC is normal in size with n ormal respiratory response. Unable to adequately assess the RVSP. December 04, 2022 R eports continued SOB with exertion N O ISSUES WITH PREGANCY HAD DELIVERED AT [facility] G ETS SOB WITH WALKING OR S TARTED SMOKING 2-3 PER DAY N O PRIOR HX OF ASTHMA Pebbles Cross [facility] [id number],S, P atvivek stil has chest pain HAS HIATIAL HERNIA AND OR ACID REFLUX O K FOR MALLOX OR MYLANTA December 04, 2022 P binta reports sharp/stabbing mostly R sided chest pains S USPECT REPRODUCIBLE CP THE MAIN ISSUE SHE IS ALSO PENDING A GI W/U IN [facility] [id number],C,Flow murmur n oted on exam Pebbles Cross [facility] [id number],C,P atvivek still has palpitations off and on SHE IS AT 36WKS WILL HOLD OFF ON ADDING BB OR ANY CCB UNTIL SHE DELIVERS AND SEE IF SHE STILL HAS PALPITATIONS H /H 9.9/ 31.0 (05/14/22) Telesentry 04/30-05/14/22 S inus Rhythm with rare Ventricular ectopics and rare Supraventricular ectopics. The a verage heart rate was 96bpm with a maximum rate of 166bpm and a minimum r ate of 57bpm. VE?s were documented as a couplet and isolated beats. SVE?s were d ocumented as isolated beats. Pebbles Sanchezdinah LOVING [id number],Russell,P binta still experiencing shortness of breath S LEEP W/U WAS WITH MILD AVELINA BUT O2 SAT WAS GOOD AROUND 96% S ummary & Diagnosis H ome sleep study shows an AHI of 7.9 which is consistent with a diagnosis of mild AVELINA. During the supine position, t he AHI increased to 10. Mean oxygen saturation of 96%, with the lowest being 87%. ECHO CONCLUSIONS: Echo 05/2022 1 . Normal left ventricular systolic function. Normal left ventricular size. Normal left ventricular wall thickness. Normal left v entricular diastolic function. E/E': 5.7 Left ventricular ejection fraction is measured at 60 %. 2 . Normal right ventricular size. Normal right ventricular systolic function. 3 . Normal appearing mitral valve leaflets. There is trace physiologic mitral valve regurgitation. 4 . Normal appearing tricuspid valve leaflets. There is trace physiologic tricuspid valve regurgitation. IVC is normal in size with n ormal respiratory response. Unable to adequately assess the RVSP. Pebbles Tay LOVING [id number],C,M ild sleep apnea per ecent sleep study 05/2021. Autopap/Cpap recommended WILL ARRANGE FOR CPAP/AUTOPAP Pebbles Sanchezdinah LOVING [id number],Russell,P binta stil has chest pain HAS HIATIAL HERNIA AND OR ACID REFLUX O K FOR MALLOX OR MYLANTA Whitneyladonna Sanchezdinah LOVING [id number],C,T he Patient was encouraged to stop smoking. Pebbles Cross NP [id number],S,M AY BE MURMUR ASSOCIATED WITH WILL GET ECHO DONE Pebbles Cross [facility] [id number],S,P binta has had chest discomfort throughout her H HAD CHEST PAINS BEFORE LASTS FOR 5MIN AND ARE RECURRENT D OESNT RECALL HAVING ISSUES WITH FIRST Pebbles Cross [facility] [id number],S,P binta has been experiencing shortness of breath associated with chest discomfort throughout her G ETS SOB RECALLS WITH FIRST M AY BE RELATED TO ANEMIA A ND SMOKING M AY BE HAVING SLEEP APNEA Pebbles Pachecoparviz [facility] [id number],C,E KG n office today shows Sinus Tachycardia W ILL ARRANGE FOR TELE MONITOR FOR 2 WKS C HECK ECHO FOR MVP HAS MURMUR ON EXAM MAY BE FLOW RELATED MURMUR FROM Pebbles Pachecoparviz LOVING [id number],C,S inus Tachycardia per EKG in office today. C HECK FOR ANEMIA P T LOOKS PALE M AY NEED ADDITIONAL IRON SUPPLEMENTATION Pebbles Pachecoparviz LOVING Cardiology:F/u with PCP regarding anemia. Prior workup showed H gb 9.9, this is likely culprit for her sxs, advised her to take her iron medication and follow up with AUTOMOTIVE TEACHER, PCP Sammie Coates MD Cardiology: T he Patient was encouraged to stop smoking. Sammie Coates MD Cardiology: M ild sleep apnea per ecent sleep study 05/2021. Autopap/Cpap recommended WILL ARRANGE FOR CPAP/AUTOPAP December 04, 2022 H as not been able to get for a sleep titration study due to lack of children's literature professor Sammie Coates MD Cardiology:Repeat sl eep study to see if there's progression of AVELINA Sammie Coates MD Electrophysiology: Richelle judd still has palpitations off and on SHE IS AT 36WKS WILL HOLD OFF ON ADDING BB OR ANY CCB UNTIL SHE DELIVERS AND SEE IF SHE STILL HAS PALPITATIONS H /H 9.9/ 31.0 (05/14/22) T elesentry 04/30-05/14/22 S inus Rhythm with rare Ventricular ectopics and rare Supraventricular ectopics. The a verage heart rate was 96bpm with a maximum rate of 166bpm and a minimum rate of 57bpm. VE?s were documented as a couplet and isolated beats. SVE?s were d ocumented as isolated beats. December 04, 2022 S AY PALPS ARE WORSE NOW THAN BEFORE NOT BREAST FEEDING W ILL NEED TO CONSIDER USING A BB IF SHE CONTINUES TO HAVE PALPS WILL TRY REPEATING TELE FOR 48 HRS TO SEE IF SHE HAS RECURRENT SVE December 25, 2022 n o significant arrythmias were observed on holter, she is anemic which is likely culprit for her tachycardia and sob, would recommend PCP follow up Brad Burrell Electrophysiology: Richelle tony has chest pain HAS HIATIAL HERNIA AND OR ACID REFLUX O K FOR MALLOX OR MYLANTA December 04, 2022 Richelle judd reports sharp/stabbing mostly R sided chest pains S USPECT REPRODUCIBLE CP THE MAIN ISSUE SHE IS ALSO PENDING A GI W/U IN FebDecember 25, 2022 u nlikely cardiac etiology, she is to consult GI to rule out GERD Brad Burrell Electrophysiology:Hg b 9.9, this is likely culprit for her sxs, advised her to take her iron medication and follow up with AUTOMOTIVE TEACHER, PCP Brad Burrell Electrophysiology: Richelle judd still experiencing shortness of breath S LEEP W/U WAS WITH MILD AVELINA BUT O2 SAT WAS GOOD AROUND 96% S ummary & Diagnosis H ome sleep study shows an AHI of 7.9 which is consistent with a diagnosis of mild AVELINA. During the supine position, t he AHI increased to 10. Mean oxygen saturation of 96%, with the lowest being 87%. ECHO CONCLUSIONS: Echo 05/2022 1 . Normal left ventricular systolic function. Normal left ventricular size. Normal left ventricular wall thickness. Normal left v entricular diastolic function. E/E': 5.7 Left ventricular ejection fraction is measured at 60 %. 2 . Normal right ventricular size. Normal right ventricular systolic function. 3 . Normal appearing mitral valve leaflets. There is trace physiologic mitral valve regurgitation. 4 . Normal appearing tricuspid valve leaflets. There is trace physiologic tricuspid valve regurgitation. IVC is normal in size with n ormal respiratory response. Unable to adequately assess the RVSP. December 04, 2022 R eports continued SOB with exertion N O ISSUES WITH PREGANCY HAD DELIVERED AT [facility] G ETS SOB WITH WALKING OR S TARTED SMOKING 2-3 PER DAY N O PRIOR HX OF ASTHMA December 25, 2022 S he continues to be SOB with very minimal exertion, differential dx related to pulmonary process vs anemia Brad Pardocori Cardiology: M ild sleep apnea per ecent sleep study 05/2021. Autopap/Cpap recommended WILL ARRANGE FOR CPAP/AUTOPAP December 04, 2022 H as not been able to get for a sleep titration study due to lack of children's literature professor Pebbles Cross NP Cardiology:CONCLUSIO NS: 1 . Normal left ventricular systolic function. Normal left ventricular size. Normal left ventricular wall thickness. Normal left v entricular diastolic function. E/E': 5.7 Left ventricular ejection fraction is measured at 60 %. 2 . Normal right ventricular size. Normal right ventricular systolic function. 3 . Normal appearing mitral valve leaflets. There is trace physiologic mitral valve regurgitation. 4 . Normal appearing tricuspid valve leaflets. There is trace physiologic tricuspid valve regurgitation. IVC is normal in size with n ormal respiratory response. Unable to adequately assess the RVSP. E lectronically Signed By: Caron Coates MD, FACC 2 023-04-18 14:40:38 CDT C C: Sammie Coates MD, FACC Pebbles Cross NP Cardiology: P atient still has palpitations off and on SHE IS AT 36WKS WILL HOLD OFF ON ADDING BB OR ANY CCB UNTIL SHE DELIVERS AND SEE IF SHE STILL HAS PALPITATIONS H /H 9.9/ 31.0 (05/14/22) T elesentry 04/30-05/14/22 S inus Rhythm with rare Ventricular ectopics and rare Supraventricular ectopics. The a verage heart rate was 96bpm with a maximum rate of 166bpm and a minimum r ate of 57bpm. VE?s were documented as a couplet and isolated beats. SVE?s were d ocumented as isolated beats. December 04, 2022 S AY PALPS ARE WORSE NOW THAN BEFORE NOT BREAST FEEDING W ILL NEED TO CONSIDER USING A BB IF SHE CONTINUES TO HAVE PALPS WILL TRY REPEATING TELE FOR 48 HRS TO SEE IF SHE HAS RECURRENT SVE Pebbles Cross NP Cardiology: T he Patient was encouraged to stop smoking. Pebbles Tay LOVING Cardiology:NEEDS TO SEE GI SHE HAD NATURAL CHILDBIRTH AND HAS NOTICED ISSUES WIHT BM SINCE DELIVERY Pebbles Cross NP Cardiology: Richelle judd still experiencing shortness of breath S LEEP W/U WAS WITH MILD AVELINA BUT O2 SAT WAS GOOD AROUND 96% S ummary & Diagnosis H ome sleep study shows an AHI of 7.9 which is consistent with a diagnosis of mild AVELINA. During the supine position, t he AHI increased to 10. Mean oxygen saturation of 96%, with the lowest being 87%. ECHO CONCLUSIONS: Echo 05/2022 1. Normal left ventricular systolic function. Normal left ventricular size. Normal left ventricular wall thickness. Normal left v entricular diastolic function. E/E': 5.7 Left ventricular ejection fraction is measured at 60 %. 2 . Normal right ventricular size. Normal right ventricular systolic function. 3 . Normal appearing mitral valve leaflets. There is trace physiologic mitral valve regurgitation. 4 . Normal appearing tricuspid valve leaflets. There is trace physiologic tricuspid valve regurgitation. IVC is normal in size with n ormal respiratory response. Unable to adequately assess the RVSP. December 04, 2022 R eports continued SOB with exertion N O ISSUES WITH PREGANCY HAD DELIVERED AT [facility] G ETS SOB WITH WALKING OR S TARTED SMOKING 2-3 PER DAY N O PRIOR HX OF ASTHMA Pebbles Cross NP Cardiology: Richelle judd stidejan has chest pain HAS HIATIAL HERNIA AND OR ACID REFLUX O K FOR MALLOX OR MYLANTA December 04, 2022 Richelle judd reports sharp/stabbing mostly R sided chest pains SUSPECT REPRODUCIBLE CP THE MAIN ISSUE SHE IS ALSO PENDING A GI W/U IN [place] NP Cardiology:Flow murmur noted on exam Pebbles Cross NP Cardiology:Patient s till has palpitations off and on SHE IS AT 36WKS WILL HOLD OFF ON ADDING BB OR ANY CCB UNTIL SHE DELIVERS AND SEE IF SHE STILL HAS PALPITATIONS H /H 9.9/ 31.0 (05/14/22) T elesentry 04/30-05/14/22 S inus Rhythm with rare Ventricular ectopics and rare Supraventricular ectopics. The a verage heart rate was 96bpm with a maximum rate of 166bpm and a minimum r ate of 57bpm. VE?s were documented as a couplet and isolated beats. SVE?s were d ocumented as isolated beats. Pebbles Cross NP Cardiology:Patient s till experiencing shortness of breath S LEEP W/U WAS WITH MILD AVLEINA BUT O2 SAT WAS GOOD AROUND 96% S ummary & Diagnosis H ome sleep study shows an AHI of 7.9 which is consistent with a diagnosis of mild AVELINA. During the supine position, t he AHI increased to 10. Mean oxygen saturation of 96%, with the lowest being 87%. ECHO CONCLUSIONS: Echo 05/2022 1 . Normal left ventricular systolic function. Normal left ventricular size. Normal left ventricular wall thickness. Normal left v entricular diastolic function. E/E': 5.7 Left ventricular ejection fraction is measured at 60 %. 2 . Normal right ventricular size. Normal right ventricular systolic function. 3 . Normal appearing mitral valve leaflets. There is trace physiologic mitral valve regurgitation. 4 . Normal appearing tricuspid valve leaflets. There is trace physiologic tricuspid valve regurgitation. IVC is normal in size with n ormal respiratory response. Unable to adequately assess the RVSP. Pebbles Cross NP Cardiology:Mild slee p apnea per ecent sleep study 05/2021. Autopap/Cpap recommended WILL ARRANGE FOR CPAP/AUTOPAP Pebbles Cross NP Cardiology:Patient s til has chest pain HAS HIATIAL HERNIA AND OR ACID REFLUX O K FOR MALLOX OR MYLANTA Pebbles Cross NP Cardiology:The Patie nt was encouraged to stop smoking. Pebbles Cross NP Cardiology:MAY BE MU RMUR ASSOCIATED WITH WILL GET ECHO DONE [facility] NP Cardiology:Patient h as had chest discomfort throughout her H HAD CHEST PAINS BEFORE LASTS FOR 5MIN AND ARE RECURRENT D OESNT RECALL HAVING ISSUES WITH FIRST [facility]bles Cross NP Cardiology:Patient h as been experiencing shortness of breath associated with chest discomfort throughout her G ETS SOB RECALLS WITH FIRST M AY BE RELATED TO ANEMIA A ND SMOKING M AY BE HAVING SLEEP APNEA [facility] Sanhcezdinah LOVING Cardiology:EKG n off ice today shows Sinus Tachycardia W ILL ARRANGE FOR TELE MONITOR FOR 2 WKS C HECK ECHO FOR MVP HAS MURMUR ON EXAM MAY BE FLOW RELATED MURMUR FROM [facility] Sanchezdinah LOVING Cardiology:Sinus Tac hycardia per EKG in office today. C HECK FOR ANEMIA P T LOOKS PALE M AY NEED ADDITIONAL IRON SUPPLEMENTATION Pebbles Sanchezdinah [facility] Date Name Sleep Study Holter Monitor 48 hr Sleep Study Titratio n PROBNP, N TERMINAL IRON AND TOTAL IRON BINDING CAPACITY FERRITIN CBC (INCLUDES DIFF/P LT) HEMOGLOBIN A1c TSH, free T4, total T3 COMPREHENSIVE METABO LIC PANEL, W/EGFR Sleep Study Home Monitor - Telemetry (Mobile Cardiac) Ambulatory Oximetry Complete Echo HISTORY OF PROCEDURES Procedure Date Procedure Name Provider Procedure Notes S tatus EKG Sammie Coates MD compl eted EKG Donnie Hawkins MD comp leted EKG Sammie Coates MD compl eted EKG Sammie Coates MD compl eted Ambulatory Oximetry Sammie Coates MD completed EKG Sammie Coates MD compl eted
--- OUTSIDE RECORDS SUMMARY | 2024-03-10 15:12 | XMS_ITS | Data Portability ---
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 PSG is medically necessary to determine the management of sleep apnea. We discussed with the patient the impact of weight on: Sleep disordered breathing We discussed with the patient the benefit of PAP therapy on: Sleep disordered breathing Educated the patient on sleep hygiene measures. Relaxing rituals to rest easy, understanding foods with positive and negative impact on sleep, creating a peaceful sleep environment, timing of exercise, using herbal sleep aids, and practicing sleep-friendly meditation were covered. To determine how much sleep is needed, the patient will assess where she falls on the spectrum, examine what lifestyle factor such as stress is affecting the quality and quantity of sleep. In general, adults need 7-9 hours of sleep. Educated the patient regarding foods that promote sleep. These include but are not limited to cherries, bananas, toast, oatmeal, and warm milk. Educated the patient regarding foods and drinks to avoid before bedtime. These include but are not limited to aged cheese, chocolate, spicy foods, tomato-based sauces, soy, ginseng tea and processed meat. Advocated influenza vaccination annually and pneumonia vaccination in 2065. Advocated weight loss through diet and exercise. Patient's ideal body weight according to height and gender is up to 130 lbs. Encouraged patient to adjust caloric intake to maintain/achieve ideal body weight, emphasizing on fruits, vegetables, whole grains, and fat-free or low-fat products. These include lean meats, poultry, fish, beans, eggs, and nuts and foods that are low in saturated fats, trans-fats, cholesterol, salt (sodium), and glycemic index. Stressed the importance of regular exercise up to the patient's capacity limits. In this case, we recommend 20 min daily walking, 2 days a week of resistance training. Patient to monitor BP daily and bring records to PCP for further management. Follow-up: 1 week after titration sleep study [email or web address] Not available 01/27/2023 09:51:51 05/27/2023 05/27/2023 Assessment: Rhinitis Mild OSAHS, AHI = 8 Plan: The following were reviewed and explained to the patient: [facility] home sleep study 05/27/22 AHI = 8, supine AHI = 10 [facility] titration sleep study 05/15/23 sleep onset = 17 minutes, REM onset = 185.5 minutes, [employer] small Veronika nasal mask @ 4-6 cmH2O Educated the patient on problems and solutions associated with positive airway pressure (PAP) use. Difficulty tolerating pressure, mask leaks, intolerance of interface, nasal congestion, claustrophobic response, dry mouth, and unintentional mask removal during sleep were covered. Patient experiences nasal congestion. Patient will use nasal saline spray before starting PAP, use heated PAP humidifier, clean/air dry humidifier reservoir daily, use nasal steroid spray, use ipratropium bromide nasal spray if rhinitis/rhinorrh ea is present or obtain an oronasal/oral interface. Patient tends to take of the PAP mask during sleep. We reassured patient that this is common. We address all other areas of headgear/nasal interface problems, especially nasal congestion. Patient can use humidification +/- chinstrap, put low-pressure alarm on blower unit to awaken patient to reposition mask and set alarm at night for patient to check headgear [employer] Sense 11 auto set unit with heated humidifier, supplies and [employer] small Veronika nasal mask @ 4-6 cmH2O ordered. Further titration will be based on clinical response. Provided the patient with a list of local home care stores where positive airway pressure (PAP) units, accoutrement, and services are available. Home care store selection is based on patient's insurance carrier. Patient will setup an appointment with [facility] for supplies and pressure adjustments. A major predictor of success with use of PAP is follow-up with both the respiratory supplier and the treating physician. The respiratory supplier optimally will follow-up within two weeks after starting use while the treating physician optimally will follow-up within 90 days after starting therapy to assess adherence and effectiveness of treatment. The download results can show the treating physician information about adherence to treatment, residual AHI while on treatment and presence of large mask leakage. This information is especially helpful if the patient has residual sleepiness despite treatment. General information on sleep disordered breathing, evaluation of sleep disordered breathing, treatment with PAP therapy, and living with PAP therapy were covered. We discussed with the patient the impact of weight on: Sleep disordered breathing We discussed with the patient the benefit of PAP therapy on: Sleep disordered breathing Depression Rhinitis with postnasal drip Educated the patient on sleep hygiene measures. Relaxing rituals to rest easy, understanding foods with positive and negative impact on sleep, creating a peaceful sleep environment, timing of exercise, using herbal sleep aids, and practicing sleep-friendly meditation were covered. To determine how much sleep is needed, the patient will assess where she falls on the spectrum, examine what lifestyle factor such as stress is affecting the quality and quantity of sleep. In general, adults need 7-9 hours of sleep. Educated the patient regarding foods that promote sleep. These include but are not limited to cherries, bananas, toast, oatmeal, and warm milk. Educated the patient regarding foods and drinks to avoid before bedtime. These include but are not limited to aged cheese, chocolate, spicy foods, tomato-based sauces, soy, ginseng tea and processed meat. Advocated influenza vaccination annually and pneumonia vaccination in 2065. Advocated weight loss through diet and exercise. Patient's ideal body weight according to height and gender is up to 130 lbs. Encouraged patient to adjust caloric intake to maintain/achieve ideal body weight, emphasizing on fruits, vegetables, whole grains, and fat-free or low-fat products. These include lean meats, poultry, fish, beans, eggs, and nuts and foods that are low in saturated fats, trans-fats, cholesterol, salt (sodium), and glycemic index. Stressed the importance of regular exercise up to the patient's capacity limits. In this case, we recommend 20 min daily walking, 2 days a week of resistance training. Patient to monitor BP daily and bring records to PCP for further management. Follow-up: 3 months, August 2023 Not available 06/11/2023 08:45:52 08/26/2023 08/26/2023 Assessment: Rhinitis Mild OSAHS, AHI = 8 Plan: The following were reviewed and explained to the patient: PFT 07/28/23 decreased FEV1/FVC, FEV1 2.79 L (88%), BD 600 mL = 27%, TLC 4.42 L (85%), RV 0.53 L (35%), DLCO 63%, DLCO/VA 80% [facility] home sleep study 05/27/22 AHI = 8, supine AHI = 10 [facility] titration sleep study 05/15/23 sleep onset = 17 minutes, REM onset = 185.5 minutes, Mazin small Veronika nasal mask @ 4-6 cmH2O PAP compliance downloaded and interpreted x 20 minutes. Data reviewed and explained to the patient. Average apnea/hypopnea index (AHI) is 2.9. Patient used PAP > 4 hours 5% of the time. PAP is set at 4-6 cmH2O. PAP will be reset at 5-6 cmH2O. Oxygen supplementation: none Patient is benefiting from PAP therapy. Encouraged patient to maintain PAP use more than 70% of the time. Statement of PAP use and benefits will be sent to the home care store. Educated the patient on problems and solutions associated with positive airway pressure (PAP) use. Difficulty tolerating pressure, mask leaks, intolerance of interface, nasal congestion, claustrophobic response, dry mouth, and unintentional mask removal during sleep were covered. Patient experiences nasal congestion. Patient will use nasal saline spray before starting PAP, use heated PAP humidifier, clean/air dry humidifier reservoir daily, use nasal steroid spray, use ipratropium bromide nasal spray if rhinitis/rhinorrh ea is present or obtain an oronasal/oral interface. Patient tends to take of the PAP mask during sleep. We reassured patient that this is common. We address all other areas of headgear/nasal interface problems, especially nasal congestion. Patient can use humidification +/- chinstrap, put low-pressure alarm on blower unit to awaken patient to reposition mask and set alarm at night for patient to check headgear Provided the patient with a list of local home care stores where positive airway pressure (PAP) units, accoutrement, and services are available. Home care store selection is based on patient's insurance carrier. Patient will setup an appointment with [facility] for supplies and pressure adjustments. A major predictor of success with use of PAP is follow-up with both the respiratory supplier and the treating physician. The respiratory supplier optimally will follow-up within two weeks after starting use while the treating physician optimally will follow-up within 90 days after starting therapy to assess adherence and effectiveness of treatment. The download results can show the treating physician information about adherence to treatment, residual AHI while on treatment and presence of large mask leakage. This information is especially helpful if the patient has residual sleepiness despite treatment. General information on sleep disordered breathing, evaluation of sleep disordered breathing, treatment with PAP therapy, and living with PAP therapy were covered. We discussed with the patient the impact of weight on: Sleep disordered breathing We discussed with the patient the benefit of PAP therapy on: Sleep disordered breathing Depression Rhinitis with postnasal drip Educated the patient on sleep hygiene measures. Relaxing rituals to rest easy, understanding foods with positive and negative impact on sleep, creating a peaceful sleep environment, timing of exercise, using herbal sleep aids, and practicing sleep-friendly meditation were covered. To determine how much sleep is needed, the patient will assess where she falls on the spectrum, examine what lifestyle factor such as stress is affecting the quality and quantity of sleep. In general, adults need 7-9 hours of sleep. Educated the patient regarding foods that promote sleep. These include but are not limited to cherries, bananas, toast, oatmeal, and warm milk. Educated the patient regarding foods and drinks to avoid before bedtime. These include but are not limited to aged cheese, chocolate, spicy foods, tomato-based sauces, soy, ginseng tea and processed meat. Advocated influenza vaccination annually and pneumonia vaccination in 2065. Advocated weight loss through diet and exercise. Patient's ideal body weight according to height and gender is up to 130 lbs. Encouraged patient to adjust caloric intake to maintain/achieve ideal body weight, emphasizing on fruits, vegetables, whole grains, and fat-free or low-fat products. These include lean meats, poultry, fish, beans, eggs, and nuts and foods that are low in saturated fats, trans-fats, cholesterol, salt (sodium), and glycemic index. Stressed the importance of regular exercise up to the patient's capacity limits. In this case, we recommend 20 min daily walking, 2 days a week of resistance training. Patient to monitor BP daily and bring records to PCP for further management. Follow-up: 6 months, February 2024 Not available 08/26/2023 15:52:38 Plan of Treatment Reminders Order Date Submit Date Provider Last Modified By Organization Details Last Modified Time Details Appointments None recorded. Lab None recorded. Referral None recorded. Procedures None recorded. Surgeries None recorded. Imaging polysomnog arnel, titration study - Auth approved, auth# [id number], valid 01/27/23 - 11/28/232022 023 [facility], [address] [place], [address], 4 15:31:05 Medication Orders None recorded. Patient TargetsNo targets recorded. Patient InstructionsNo instructions recorded. Reason for Referral None Reported. Results Created Date Observation Date Name Description Value Unit Range Abnormal Flag Note LastModifiedBy Organization Detail LastModifiedTime 06/29/19 24 05/15/2023 polys omnog arnel, titra tion study No observ ation record ed. BARCODE [facility] [address] [place], [address], 06/29/2023 15:12:39 07/29/19 24 07/28/2023 compl ete PFT w/ post [facility] hodil ator ashlie metry * No observ ation record ed. BARCODE Not Available 2023 12:22:29 Result Notes None recorded. 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 Procedures Surgical History None recorded. Imaging Results Imaging Date Name Status LastModified by Organization Details LastModified Time 05/15/2023 polysomnogram, titration study completed [facility] [address] [place], [address], 06/29/2023 15:12:39 07/28/2023 complete PFT w/ post bronchodilator spirometry* completed BARCODE Information not available 07/29/2023 12:22:29 Procedure Notes None recorded. Medical Equipment None Reported. Allergies No known drug allergies Medications Name Sig Start Date Stop Date Status Note LastModified by Organization Details LastModified Time cyclobenzap rine 10 mg tablet TAKE 1 TABLET BY MOUTH THREE TIMES A DAY NEEDED FOR MUSCLE SPASMS 01/27 completed Not Available Not Available Not Available terconazole 0.4 % vaginal cream INSERT 1 APPLICATO RFUL VAGINALLY AT BEDTIME FOR 7 DAYS 01/27 completed Not Available Not Available Not Available Saline Mist 0.65 % nasal spray aerosol ADMINISTE R 2 SPRAYS INTO EACH NOSTRIL 4 TIMES A DAY NEEDED FOR DRY NASAL PASSAGES. NOT COVERD. 06/28 completed Not Available Not Available Not Available azithromyci n 250 mg tablet TAKE 2 TABLETS BY MOUTH TODAY, THEN TAKE 1 TABLET DAILY FOR 4 DAYS 01/27 completed Not Available Not Available Not Available fluconazole 150 mg tablet TAKE 1 TABLET BY MOUTH ONCE EVERY 3 DAYS FOR 2 DOSES 12/21 completed Not Available Not Available Not Available sumatriptan 100 mg tablet TAKE 1 TABLET BY MOUTH EVERY DAY FOR 30 DAYS 01/27 completed Not Available Not Available Not Available ondansetron HCl 4 mg tablet TAKE 1 TABLET BY MOUTH EVERY 8 HOURS 08/25 completed Not Available Not Available Not Available prednisone 20 mg tablet TAKE 1 TABLET BY MOUTH EVERY DAY FOR 5 DAYS 08/25 completed Not Available Not Available Not Available metronidazo le 500 mg tablet TAKE 1 TABLET BY MOUTH TWICE A DAY FOR 7 DAYS 12/21 completed Not Available Not Available Not Available valacyclovi r 500 mg tablet TAKE 1 TABLET BY MOUTH TWICE A DAY 01/27 completed Not Available Not Available Not Available acetaminoph en 500 mg tablet TAKE 2 TABLETS BY MOUTH EVERY 6 HOURS NEEDED FOR PAIN 01/27 completed Not Available Not Available Not Available acetaminoph en ER 650 mg tablet,exte nded release TAKE 1 TABLET (650 MG) BY MOUTH EVERY 6 HOURS NEEDED FOR PAIN 06/28 completed Not Available Not Available Not Available hydrocortis one 2.5 % topical cream with perineal applicator APPLY SPARINGLY TO AFFECTED AREA 2 TO 4 TIMES A DAY 12/21 completed Not Available Not Available Not Available famotidine 20 mg tablet Take 1 tablet twice a day by oral route. active Not Available Not Available No t Available dicyclomine 20 mg tablet TAKE 1 TABLET BY MOUTH THREE TIMES A DAY NEEDED 12/21 completed Not Available Not Available Not Available phenazopyri dine 100 mg tablet TAKE 2 TABLETS BY MOUTH 3 TIMES A DAY FOR 2 DAYS 06/28 completed Not Available Not Available Not Available doxycycline monohydrate 100 mg capsule TAKE 1 CAPSULE BY MOUTH TWICE A DAY DIRECTED FOR 7 DAYS 01/27 completed Not Available Not Available Not Available ferrous sulfate 325 mg (65 mg iron) tablet TAKE 1 TABLET BY MOUTH EVERY DAY active Not Available Not Available No t Available nitrofurant oin macrocrysta l 100 mg capsule TAKE 1 CAPSULE BY MOUTH TWICE A DAY WITH FOOD/MEAL 08/25 completed Not Available Not Available Not Available docusate sodium 100 mg capsule TAKE 1 CAPSULE BY MOUTH TWICE A DAY NEEDED FOR 30 DAYS 12/21 completed Not Available Not Available Not Available omeprazole 20 mg capsule,del ayed release TAKE 1 CAPSULE BY MOUTH EVERY DAY FOR 30 DAYS FOR ACID REFLUX active Not Available Not Available No t Available bisacodyl 5 mg tablet,marisabel yed release TAKE 4 TABLETS BY MOUTH AT 2PM THE DAY BEFORE THE COLONOSCO PY WITH 8 OUNCES OF WATER 12/21 completed Not Available Not Available Not Available amoxicillin 400 mg/5 mL oral suspension TAKE 6.75 ML BY MOUTH 2 TIMES A DAY. DISCARD THE REMAINDER * 08/25 completed Not Available Not Available Not Available ibuprofen 600 mg tablet TAKE 1 TABLET (600 MG) BY MOUTH EVERY 8 HOURS NEEDED FOR PAIN 06/28 completed Not Available Not Available Not Available polyethylen e glycol 3350 17 gram/dose oral powder DISSOLVE 17 GRAMS INTO WATER AND DRINK BY MOUTH EVERY DAY 01/27 completed Not Available Not Available Not Available levofloxaci n 750 mg tablet TAKE 1 TABLET BY MOUTH EVERY 24 HOURS FOR 7 DAYS 08/25 completed Not Available Not Available Not Available methylpredn isolone 4 mg tablets in a dose pack PLEASE SEE ATTACHED FOR DETAILED DIRECTION S 12/21 completed Not Available Not Available Not Available albuterol sulfate HFA 90 mcg/actuati on aerosol inhaler INHALE 2 PUFFS BY MOUTH EVERY 6 HOURS NEEDED FOR SHORTNESS OF BREATH active Not Available Not Available No t Available ondansetron 4 mg disintegrat ing tablet DISSOLVE 1 TABLET UNDER THE TONGUE EVERY 8 HOURS NEEDED FOR NAUSEA AND VOMITING 06/28 completed Not Available Not Available Not Available cefdinir 300 mg capsule TAKE 1 CAPSULE BY MOUTH EVERY 12 HOURS 06/28 completed Not Available Not Available Not Available fluticasone propionate 110 mcg/actuati on HFA aerosol inhaler INHALE 1 PUFF BY MOUTH TWICE A DAY DIRECTED FOR PREVENTIO N OF ASTHMA ATTACKS active Not Available Not Available No t Available metoclopram trino 10 mg tablet TAKE 1 TABLET BY MOUTH FOUR TIMES A DAY 01/27 completed Not Available Not Available Not Available amoxicillin 875 mg-potassiu m clavulanate 125 mg tablet TAKE 1 TABLET BY MOUTH EVERY 12 HOURS DIRECTED FOR 7 DAYS 06/28 completed Not Available Not Available Not Available medroxyprog esterone 150 mg/mL intramuscul ar syringe Inject 1 mL every 3 months by intramusc ular route. 06/28 completed Not Available Not Available Not Available nitrofurant oin monohydrate /macrocryst als 100 mg capsule TAKE 1 CAPSULE BY MOUTH TWICE A DAY FOR 7 DAYS 12/21 completed Not Available Not Available Not Available metronidazo le 1 % topical gel APPLY 1 APPLICATI ON ONTO THE AFFECTED AREA(S) ON THE SKIN DAILY AT BEDTIME 08/25 completed Not Available Not Available Not Available tranexamic acid 650 mg tablet TAKE 2 TABLETS BY MOUTH THREE TIMES DAILY X 5 DAYS active Not Available Not Available No t Available 28 mg iron-800 mcg tablet TAKE 1 TABLET BY MOUTH EVERY DAY 01/27 completed Not Available Not Available Not Available Vitals Date Recorded Body weight Provider Name an d Address Organization Details Last Updated DateTime 01/27/2023 24160.67 g Sandra Green MA [facility] [employer] [facility] 01/27/2023 09:09:59 Date Recorded Body mass index (BMI) Body height Provider Name and Address Organization Details Last Updated DateTime 01/27/2023 25.4 kg/m2 162.56 cm Sandra Green MA [facility] [employer] [facility] 01/27/2023 09:17:06 Date Recorded Body temperature Provider Name a nd Address Organization Details Last Updated DateTime 01/27/2023 98.1 [degF] Sandra Green [place] [facility] [employer] [facility] 01/27/2023 09:18:00 Date Recorded Heart rate Provider Name an d Address Organization Details Last Updated DateTime 01/27/2023 76 /min Sandra Green [place] [facility] [employer] [facility] 01/27/2023 09:18:16 Date Recorded Oxygen saturation Oxygen saturation in Arterial blood by Pulse oximetry Provider Name and Address Organization Details Last Updated DateTime 01/27/2023 98 % 98 % Sandra Green MA [place] [employer] [facility] [employer] [facility] 01/27/2023 09:18:19 Date Recorded Heart rate Provider Name an d Address Organization Details Last Updated DateTime 01/27/2023 76 /min Rick Sargent MD [address] [place], [address], [place] [employer] [facility] [employer] [facility] 01/27/2023 09:47:37 Date Recorded Respiratory rate Provider Name a nd Address Organization Details Last Updated DateTime 01/27/2023 15 /min Rick Sargent MD [address] [place], [address], [place] [employer] [facility] [employer] [facility] 01/27/2023 09:47:39 Date Recorded Body height Provider Name an d Address Organization Details Last Updated DateTime 05/27/2023 162.56 cm Jax Hairston CMA [employer] [facility] [employer] [facility] 05/27/2023 09:33:48 Date Recorded Body mass index (BMI) Provider Name and Address Organization Details Last Updated DateTime 05/27/2023 24.2 kg/m2 Jax Hairston CMA [place] [employer] [facility] [employer] [facility] 05/27/2023 09:34:14 Date Recorded Body weight Provider Name an d Address Organization Details Last Updated DateTime 05/27/2023 32430.52 g Jax Hairston [employer] 05/27/2023 09:34:15 Date Recorded Heart rate Provider Name an d Address Organization Details Last Updated DateTime 05/27/2023 98 /min Rick Sargent MD [address], [place], [address], [employer] 05/27/2023 10:19:06 Date Recorded Oxygen saturation Oxygen saturation in Arterial blood by Pulse oximetry Provider Name and Address Organization Details Last Updated DateTime 05/27/2023 98 % 98 % Jax Hairston [employer] 05/27/2023 09:36:06 Date Recorded Body temperature Provider Name a nd Address Organization Details Last Updated DateTime 05/27/2023 97.2 [degF] Jax Hairston [employer] 05/27/2023 09:36:13 Date Recorded Heart rate Provider Name an d Address Organization Details Last Updated DateTime 05/27/2023 98 /min Rick Sargent MD [address], [place], [address], [employer] 05/27/2023 10:19:17 Date Recorded Respiratory rate Provider Name a nd Address Organization Details Last Updated DateTime 05/27/2023 15 /min Rick Sargent MD [address], [place], [address], [employer] 05/27/2023 10:19:19 Date Recorded Body height Provider Name an d Address Organization Details Last Updated DateTime 08/26/2023 162.56 cm Jax Hairston [employer] 08/26/2023 15:16:28 Date Recorded Body mass index (BMI) Body weight Provider Name and Address Organization Details Last Updated DateTime 08/26/2023 24.9 kg/m2 25010.89 g Jax Hairston [employer] 08/26/2023 15:24:41 Date Recorded Heart rate Provider Name an d Address Organization Details Last Updated DateTime 08/26/2023 108 /min Rick Sargent MD [address], [place], [address], [employer] 08/26/2023 15:58:40 Date Recorded Oxygen saturation Oxygen saturation in Arterial blood by Pulse oximetry Provider Name and Address Organization Details Last Updated DateTime 08/26/2023 98 % 98 % Jax Hairston CMA [employer] 08/26/2023 15:27:57 Date Recorded Heart rate Provider Name an d Address Organization Details Last Updated DateTime 08/26/2023 108 /min Rick Sargent MD [address], [address], [place], [address], [employer] 08/26/2023 15:58:34 Date Recorded Body temperature Provider Name a nd Address Organization Details Last Updated DateTime 08/26/2023 98.1 [degF] Rick Sargent MD [address], [place], [address], [employer] 08/26/2023 15:58:52 Date Recorded Respiratory rate Provider Name a nd Address Organization Details Last Updated DateTime 08/26/2023 14 /min Rick Sargent MD [address], [place], [address], [employer] 08/26/2023 15:59:25 Date Recorded Systolic blood pressure Diastolic blood pressure Provider Name and Address Organization Details Last Updated DateTime 01/27/2023 118 mm[Hg] 76 mm[Hg] Sandra Green MA [employer] 01/27/2023 09:19:25 Date Recorded Systolic blood pressure Diastolic blood pressure Provider Name and Address Organization Details Last Updated DateTime 05/27/2023 120 mm[Hg] 76 mm[Hg] Jax Hairston CMA [employer] 05/27/2023 09:35:32 Date Recorded Systolic blood pressure Diastolic blood pressure Provider Name and Address Organization Details Last Updated DateTime 08/26/2023 118 mm[Hg] 68 mm[Hg] Jax Hairston CMA [employer] 08/26/2023 15:26:25 Social History Question Answer Notes LastModified by Organizat ion Details LastModified Time Tobacco Smoking Status Current Every Day Smoker YANNICK Kauffman, [place] [employer] [facility] 01/27/2023 09:15:26 What Is Your Level Of Alcohol Consumption? None Information not available 01/27/2023 What Is Your Level Of Caffeine Consumption? Occasional Information not available 01/27/2023 In The 14 Days Before Symptom Onset, Have You Had Close Contact With A Laboratory-confir med COVID-19 While That Case Was Ill? No Information not available 01/27/2023 In The 14 Days Before Symptom Onset, Have You Had Close Contact With A Person Who Is Under Investigation For COVID-19 While That Person Was Ill? No Information not available 01/27/2023 What Type Of Diet Are You Following? REGULAR Information not available 01/27/2023 Do You Have An Electrostatic Air Filter? No Information not available 01/27/2023 Do You Have A Humidifier? No Information not available 01/27/2023 Do You Have Moisture Problems In Your Home? No Information not available 01/27/2023 What Was The Date Of Your Most Recent Tobacco Screening? 01/27/2023 Information not available 01/27/2023 Do You Have Any Pets? No Information not available 01/27/2023 Do You Use Your Seat Belt Or Car Seat Routinely? Yes Information not available 01/27/2023 Do You Have Smoke And Carbon Monoxide Detectors In Your Home? Yes Information not available 01/27/2023 Are You Passively Exposed To Smoke? No Information no t available 01/27/2023 How Much Tobacco Do You Smoke? 0.25 PPD Information not available 01/27/2023 Do You Feel Stressed (tense, Restless, Nervous, Or Anxious, Or Unable To Sleep At Night)? [id number] Information not available 01/27/2023 Do You Use Any Illicit Or Recreational Drugs? No Information not available 01/27/2023 Do You Use Sunscreen Routinely? No Information not available 01/27/2023 Have You Recently Traveled Abroad? No Information not available 01/27/2023 Do You Have Any Dietary Restrictions? No Information not available 01/27/2023 Sex: Unknown Functional Status Question Answer Note LastModified by Organizat ion Details LastModified Time What is your exercise level? Occasional Information not available 01/27/2023 Mental Status None recorded. Family History Relationship Description Onset Age of this Age Resolved Age Notes LastModified by Organization Details LastModified Time Paternal Aunt Obstructive sleep apnea syndrome Not available 2022 09:46:43 Paternal Grandmother Heart disease Not available 2022 09:47:11 Sister Asthma Not available 09:52:15 Medical History No medical history recorded. Gynecological HistoryNo gynecological history recorded. Obstetrics History GPAL:G 0 P 0 0 0 0 Past Encounters Encounter ID Performer Location Encounter Start Date Encounter Closed Date Diagnosis/Indication Diagnosis SNOMED-CT Code Diagnosis ICD10 Code Diagnosis Note [id number] Rick Sargent MD [place] [id number] 01/27/2023 09:01:49 01/28/2023 08:54:47 Obstructive sleep apnea syndrome 44349688 G47.33 G47.36 G47.61 [id number] Rick Sargent MD [place] [id number] 05/27/2023 09:22:09 05/28/2023 08:43:41 Obstructive sleep apnea syndrome 65116207 G47.33 [id number] Rick Sargent MD [facility] [place] [id number] 08/26/2023 15:07:03 08/27/2023 08:09:56 Obstructive sleep apnea syndrome 82460508 G47.33 Health Concerns Section Related Observation LastModified by Organization Detai ls LastModified Time None Recorded Concern Status LastModified by Organization Details LastModified Time None Recorded Advance Directives Directive None Recorded Payers Encounter Date Sequence Insurance Name Policy Number Policy Cantu Covered Member ID Cantu Member ID Guarantor Name 01/27/2023 1 [employer] [place] [facility] ON OR AFTER 01/09/2020 (MEDICAID REPLACEMENT - HMO) Davida Mayer Drake [id number] Davida Mayer Juan 05/27/2023 1 [employer] [place] - [place] ON [place] AFTER 2020 (MEDICAID REPLACEMENT - HMO) Davida Mayer Drake [id number] Davida Juan 08/26/2023 1 [employer] [place] [place] ([place]ICAID REPLACEMENT - HMO) Davida Mayer Drake [id number] Davida Mayer Drake Notes Date Note Type Note Provider Name and Address Organization Details Recorded Time 01/27/2023 text/html Primary care/Ref erring provider: Sammie Coates MD During the [facility] home sleep study on 05/27/22 AHI = 8, supine AHI = 10. At home, the patient sleeps from 10:30 pm to 7:30 am and wakes up without an alarm. Snoring: moderate, since .Snorting: noChoking: noCoughing: noGasping: yesGagging: noSighing: noWitnessed apnea: yesTwitching or jerking of leg(s), arm(s), body, head: yesTeeth grinding: noTeeth clenching: noSleeptalking: noSleepwalking: noSleep crying: noBedwetting: noTongue/lip/gum/cheek biting: noSleeping with open mouth: yesSleep paralysis: yesHypnagogic hallucinations: noHypnopompic hallucinations: noVivid dreams: yesDifficulty with sleep onset: yesDifficulty with sleep maintenance: yesSleep interruptions: gaspingPatient wakes up with: fatigue, xerostomia, sore throat, headachesDaytime cataplexy: noMorning hypersomnolence: yesAfternoon hypersomnolence: yesCaffeine sources in diet: soda 1/2 bottle per week, chocolate 1 candy bar per month Associated medical and psychiatric conditions:Congestive heart failure: noCoronary artery disease: noMyocardial infarction: noHypertension: noStroke: noBronchial asthma: noChronic obstructive pulmonary disease: noDepression: noBipolar disorder: noAnxiety: noPanic disorder: noPosttraumatic stress disorder: noAttention deficit and hyperactivity disorder: noObsessive Compulsive disorder: noSchizophrenia: noSchizoaffective disorder: noPersonality disorder: noChronic analgesic use: noChronic sedative/hypnotic use: no EPWORTH SLEEPINESS SCALE (ESS) CHANCE OF DOZING SCORE0 = would never doze1 = slight chance of dozing2 = moderate chance of dozing3 = high chance of dozing SITUATION AND CHANCE OF DOZINGSitting and reading - 0Watching television - 3Sitting inactive in a public place (e.g. a theater or meeting) - 2As a passenger in a car for an hour without a break - 2Lying down to rest in the afternoon when circumstances permit - 3Sitting and talking to someone - 0Sitting quietly after lunch without alcohol - 0In a car, while stopped for a few minutes in the traffic - 0TOTAL SCORE 10Subjectively, patient has a moderate chance of dozing. Rick Sargent MD [address] [place] [address], [address], [facility] [employer] 01/27/2023 09:58:37 05/27/2023 text/html Primary care/Ref erring provider: Zak Arauz MD; Sammie Coates MD During the [facility] home sleep study on 05/27/22 AHI = 8, supine AHI = 10. During the [facility] titration sleep study on 05/15/23, sleep onset = 17 minutes, REM onset = 185.5 minutes. The patient uses a [employer]Med AirSense 11 autoset unit with heated humidification. The patient does not need the ramp to start low and go up slowly on the pressure. There is no xerostomia in a.m. There is no hose/mask condensation with water. The patient wears a [employer] small Veronika nasal mask without chin strap. There is no claustrophobia, no nostril/nose bridge irritation, no facial rash, no facial numbness, no nosebleeding. The patient feels more refreshed upon waking and daytime alertness is improved. Energy levels are sustained until noon. At home, the patient sleeps from 10:30 pm to 7:30 am and wakes up without an alarm. Snoring: moderate, since .Snorting: noChoking: noCoughing: noGasping: yesGagging: noSighing: noWitnessed apnea: yesTwitching or jerking of leg(s), arm(s), body, head: yesTeeth grinding: noTeeth clenching: noSleeptalking: noSleepwalking: noSleep crying: noBedwetting: noTongue/lip/gum/cheek biting: noSleeping with open mouth: yesSleep paralysis: yesHypnagogic hallucinations: noHypnopompic hallucinations: noVivid dreams: yesDifficulty with sleep onset: yesDifficulty with sleep maintenance: yesSleep interruptions: gaspingPatient wakes up with: fatigue, xerostomia, sore throat, headachesDaytime cataplexy: noMorning hypersomnolence: yesAfternoon hypersomnolence: yesCaffeine sources in diet: soda 1/2 bottle per week, chocolate 1 candy bar per month Associated medical and psychiatric conditions:Congestive heart failure: noCoronary artery disease: noMyocardial infarction: noHypertension: noStroke: noBronchial asthma: noChronic obstructive pulmonary disease: noDepression: noBipolar disorder: noAnxiety: noPanic disorder: noPosttraumatic stress disorder: noAttention deficit and hyperactivity disorder: noObsessive Compulsive disorder: noSchizophrenia: noSchizoaffective disorder: noPersonality disorder: noChronic analgesic use: noChronic sedative/hypnotic use: no EPWORTH SLEEPINESS SCALE (ESS) CHANCE OF DOZING SCORE0 = would never doze1 = slight chance of dozing2 = moderate chance of dozing3 = high chance of dozing SITUATION AND CHANCE OF DOZINGSitting and reading - 3Watching television - 3Sitting inactive in a public place (e.g. a theater or meeting) - 2As a passenger in a car for an hour without a break - 2Lying down to rest in the afternoon when circumstances permit - 3Sitting and talking to someone - 0Sitting quietly after lunch without alcohol - 2In a car, while stopped for a few minutes in the traffic - 0TOTAL SCORE 15Subjectively, patient has a moderate chance of dozing. Rick Sargent MD [address] [facility], [place], [address], [place] - [facility] 06/11/2023 08:45:56 08/26/2023 text/html Primary care/Ref erring provider: Zak Arauz MD; Sammie Coates MD CC: My compliance rate is down as my older daughter won't go to sleep until late. During the [facility] home sleep study on 05/27/22 AHI = 8, supine AHI = 10. During the [facility] titration sleep study on 05/15/23, sleep onset = 17 minutes, REM onset = 185.5 minutes. At home since 06/24/23, the patient uses a ResMed AirSense 11 autoset unit with heated humidification. The patient does not need the ramp to start low and go up slowly on the pressure. There is no xerostomia in a.m. There is no hose/mask condensation with water. The patient wears a [employer] small Veronika nasal mask without chin strap. There is no claustrophobia, no nostril/nose bridge irritation, no facial rash, no facial numbness, no nosebleeding. The patient feels more refreshed upon waking and daytime alertness is improved. Energy levels are sustained until noon. At home, the patient sleeps from 10:30 pm to 7:30 am and wakes up without an alarm. Snoring: moderate, since .Snorting: noChoking: noCoughing: noGasping: yesGagging: noSighing: noWitnessed apnea: yesTwitching or jerking of leg(s), arm(s), body, head: yesTeeth grinding: noTeeth clenching: noSleeptalking: noSleepwalking: noSleep crying: noBedwetting: noTongue/lip/gum/cheek biting: noSleeping with open mouth: yesSleep paralysis: yesHypnagogic hallucinations: noHypnopompic hallucinations: noVivid dreams: yesDifficulty with sleep onset: yesDifficulty with sleep maintenance: yesSleep interruptions: gaspingPatient wakes up with: fatigue, xerostomia, sore throat, headachesDaytime cataplexy: noMorning hypersomnolence: yesAfternoon hypersomnolence: yesCaffeine sources in diet: soda 1/2 bottle per week, chocolate 1 candy bar per month Associated medical and psychiatric conditions:Congestive heart failure: noCoronary artery disease: noMyocardial infarction: noHypertension: noStroke: noBronchial asthma: noChronic obstructive pulmonary disease: noDepression: noBipolar disorder: noAnxiety: noPanic disorder: noPosttraumatic stress disorder: noAttention deficit and hyperactivity disorder: noObsessive Compulsive disorder: noSchizophrenia: noSchizoaffective disorder: noPersonality disorder: noChronic analgesic use: noChronic sedative/hypnotic use: no EPWORTH SLEEPINESS SCALE (ESS) CHANCE OF DOZING SCORE0 = would never doze1 = slight chance of dozing2 = moderate chance of dozing3 = high chance of dozing SITUATION AND CHANCE OF DOZINGSitting and reading - 3Watching television - 3Sitting inactive in a public place (e.g. a theater or meeting) - 3As a passenger in a car for an hour without a break - 3Lying down to rest in the afternoon when circumstances permit - 3Sitting and talking to someone - 0Sitting quietly after lunch without alcohol - 3In a car, while stopped for a few minutes in the traffic - 0TOTAL SCORE 18Subjectively, patient has a moderate chance of dozing. Rick Sargent MD [address] [place] [address], [place], [address], [facility] 08/26/2023 16:07:27 OBGyn Episode No OBEpisode recorded.
--- OUTSIDE RECORDS SUMMARY | 2024-03-10 15:12 | XMS_ITS | Clinical Summary ---
Author Organization [facility] Address [address] [place] [address]. [place], [place] [id number] [place] [id number] Care Team Providers Care Stone Banker Name Role Phone New Referring, Provider Primary Care Provider Un available Allergies No known active allergies Medications Vit-Fe Fumarate-FA ( VITAMIN) 27-0.8 MG Tab Take 1 tablet by mouth daily. 90 tablet 3 1 Active VITAMINS 28-0.8 MG tablet Take 1 tablet by mouth daily. 1 Active ibuprofen (MOTRIN) 600 MG tablet Take 1 tablet (600 mg total) by mouth every 6 (six) hours as needed. 20 tablet 3 Active ondansetron (ZOFRAN-ODT) 4 MG disintegrating tablet Take 1 tablet (4 mg total) by mouth every 8 (eight) hours as needed. 20 tablet 3 Active Active Problems Problem Noted Date Diagnosed Date ([facility]) 11/25/2020 Family History Medical History Relation Comments Heart Attack Maternal Grandmother Cancer Mother Relation Status Comments Father Alive Maternal Grandmother Alive Mother Alive Social History Tobacco Use Types Packs/Day Years Used Date Smoking Tobacco: Every Day Cigarettes Last attempted to quit: 07/31/2020 Smokeless Tobacco: Never Tobacco Cessation:Ready to Q uit: Not Asked; Counseling Given: Not Answered Alcohol Use Standard Drinks/Week Comments Never 0 (1 standard drink = 0.6 oz pur e alcohol) AUDIT-C Answer Date Recorded Q1: How often do you have a drink containing alc ohol? 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 Pulse 87 02/08/2023 7:00 AM ELECTROMEDICAL EQUIPMENT REPAIRER Temperature 36.7 ??C (98.1 ??F) 02/08/2023 2:54 AM CS T Respiratory Rate 24 02/08/2023 7:00 AM ELECTROMEDICAL EQUIPMENT REPAIRER Oxygen Saturation 100% 02/08/2023 7:00 AM ELECTROMEDICAL EQUIPMENT REPAIRER Inhaled Oxygen Concentration - - Weight 67.1 kg (148 lb) 02/08/2023 2:54 AM ELECTROMEDICAL EQUIPMENT REPAIRER Height 162.6 cm (5' 4 ) 02/08/2023 2:54 AM ELECTROMEDICAL EQUIPMENT REPAIRER Body Mass Index 25.4 02/08/2023 2:54 AM ELECTROMEDICAL EQUIPMENT REPAIRER Plan of Treatment Health Maintenance Due Date Last Done Comments Annual Physical 09/17/2003 Pneumococcal Vaccine: Pediatrics (0 to 5 Years) and At-Risk Patients (6 to 64 Years) (1 of 2 - PCV) 2006 Meningococcal B Vaccine (1 of 2 - Standard) 2016 Hepatitis C 2018 Hepatitis B Vaccines (1 of 3 - 19+ 3-dose series) 09/17/2019 COVID-19 Vaccine ( - season) 2023 Influenza Adult (#1) 2023 Cervical Cancer Screening Pap Smear (Age 21 to 29) Every 3 Years 11/01/2025 11/01/2022 Cervical Cancer Screening 11/01/2025 DTaP, Tdap and Td Vaccines (6 - Td or Tdap) 06/04/2032 06/04/2022, 12/30/2001, 03/21/2001, Additional history exists HPV Vaccines Completed 08/25/2013, 08/09, 07/06/2012 Meningococcal Vaccine Completed 2016, 013 RSV Immunizations Under 20 Months Aged Out No longer eligible based on patient's age to complete this topic Insurance [employer] Advance Directives * Full Code (Latest Code Status on File) Date Activated Date Inactivated Comments 11/25/2020 5:03 AM 11/28/2020 7:41 PM Care Teams Stone Banker Relationship Specialty Start Date End Date New Referring, Provider PCP - General UNKNOWN PHYSICIAN SPECIALTY 07/13/20
--- OUTSIDE RECORDS SUMMARY | 2024-03-10 15:12 | XMS_ITS | Patient Health Summary ---
Author Organization [facility] e[employer] Address [address] [place] [address] Care Team Providers Care Cable Installation Manager Name Role Phone Unavailable Primary Care Provider Unavailabl e Note from [facility] e[employer],non-owned Affiliates and Associated Physician Practices is amultiple site organization consisting of ambulatory clinics and hospital sitesin [place], [place], [place] and [place]. This disclosure is being madepursuant to the Care Everywhere program and may not contain all information available regarding this patient. Last updated 17.[facility] [employer] Allergies No known active allergies Social History [...] Mass Index 26.09 10/08/2022 10:49 PM CDT Procedures * CARDIAC EKG ORDER(Performed 10/12/2022) * XR CHEST 1VW PORTABLE(Performed 10/09/2022) Performed for SOB (shortness of breath) * XR SHOULDER LEFT 2VW OR MORE(Performed 10/09/2022) Performed for Acute nonintractable headache, unspecified headache type * EKG 12-LEAD(Performed 10/09/2022) Performed for Acute nonintractable headache, unspecified headache type * URINE MICROSCOPIC ONLY(Performed 10/09/2022) * URINALYSIS REFLEX TO MICROSCOPIC NO CULTURE(Performed 10/09/2022) * B-TYPE NATRIURETIC PEPTIDE(Performed 10/09/2022) * HCG BETA BLOOD QUANTITATIVE(Performed 10/09/2022) * LIPASE BLOOD(Performed 10/09/2022) * COMPREHENSIVE METABOLIC PANEL(Performed 10/09/2022) * CBC W AUTO DIFFERENTIAL(Performed 10/09/2022) * CT HEAD WO CONTRAST(Performed 10/09/2022) Performed for Acute nonintractable headache, unspecified headache type * HCG URINE QUALITATIVE(Performed 10/08/2022) * SONOGRAM - COMPLETE(Performed 03/16/2022) Performed for Encounter for ultrasound (HCC), Third (HCC), History of shoulder dystocia in prior , currently , unspecified trimester (HCC), Herpes, 24 weeks gestationof (HCC) Results * CARDIAC EKG ORDER (10/12/2022 7:57 PM CDT) Narrative 10/12/2022 7:57 PM CDT Ordered by an unspecified provider. Scanned Document CARDIAC SERVICES ORD ERABLES * XR CHEST 1VW PORTABLE (10/09/2022 1:30 AM CDT) Anatomical Region Laterality Modality Chest Radiographic Melania ging 10/09/2022 8:05 AM CDT Impressions 10/09/2022 8:05 AM CDT IMPRESSION: Normal > Interpreting Provider: Lizbeth Uribe MD on 10/09/2022 8:05 AM Narrative 10/09/2022 8:05 AM CDT PROCEDURE: ??XR CHEST 1VW PORTABLE DATE/TIME OF EXAM: ??10/09/2022 1:34 AM CLINICAL INFORMATION: None relevant/not provided if blank. Indication: R06.02: Shortness of breath Additional History: COMPARISON: None. FINDINGS: The lungs are clear and free of effusion. ??The heart, mediastinum and bony thorax are normal. Procedure Note Lizbeth Uribe MD - 10/09/2022 PROCEDURE: XR CHEST 1VW PORTABLE DATE/TIME OF EXAM: 10/09/2022 1:34 AM CLINICAL INFORMATION: None relevant/not provided if blank. Indication: R06.02: Shortness of breath Additional History: COMPARISON: None. FINDINGS: The lungs are clear and free of effusion. The heart, mediastinum andbony thorax are normal. IMPRESSION: Normal > Interpreting Provider: Lizbeth Uribe MD on 10/09/2022 8:05 AM Grant Cedillo DO DIAGNOSTIC IMAG ING ORDERABLES * XR SHOULDER LEFT 2VW OR MORE (10/09/2022 1:30 AM CDT) Anatomical Region Laterality Modality Upper Extremity Radiographic Melania ging 10/09/2022 8:04 AM CDT Impressions 10/09/2022 8:04 AM CDT IMPRESSION: Normal > Interpreting Provider: Lizbeth Uribe MD on 10/09/2022 8:04 AM Narrative 10/09/2022 8:04 AM CDT PROCEDURE: ??XR SHOULDER LEFT 2VW OR MORE DATE/TIME OF EXAM: ??10/09/2022 1:33 AM CLINICAL INFORMATION: None relevant/not provided if blank. Indication: R51.9: Headache, unspecified Additional History: COMPARISON: None. FINDINGS: There is no fracture, dislocation or significant degenerative change. ??The AC joint is normally aligned. ??The visualized left ribs are intact. Procedure Note Lizbeth Uribe MD - 10/09/2022 PROCEDURE: XR SHOULDER LEFT 2VW OR MORE DATE/TIME OF EXAM: 10/09/2022 1:33 AM CLINICAL INFORMATION: None relevant/not provided if blank. Indication: R51.9: Headache, unspecified Additional History: COMPARISON: None. FINDINGS: There is no fracture, dislocation or significant degenerative change.The AC joint is normally aligned. The visualized left ribs are intact. IMPRESSION: Normal > Interpreting Provider: Lizbeth Uribe MD on 10/09/2022 8:04 AM Grant Cedillo DO DIAGNOSTIC IMAG ING ORDERABLES * EKG 12-LEAD (10/09/2022 12:39 AM CDT) Ventricular Rate 81 BPM [facility] Atrial Rate 81 BPM [facility] P-R Interval 148 ms [facility] QRS Duration ms 84 ms [facility] Q-T Interval ms 394 ms [facility] QTC Calculation (Bezet) 457 ms [facility] Calculated P [place] 82 degrees [facility] Calculated R [place] 99 degrees [facility] Calculated T [place] 46 degrees [facility] Interpretation EKG NORMAL SINUS RHYTHM RIGHTWARD AXIS BORDERLINE ECG NO PREVIOUS ECGS AVAILABLE Confirmed by DO PATEL STEPHANIE ([id number]) on 10/09/2022 1:41:10 PM SM MUSE 10/09/2022 12:3 9 AM CDT 10/09/2022 1:41 PM CDT Grant Cedillo DO ECG ORDERABLES [facility] * (ABNORMAL) URINALYSIS REFLEX TO MICROSCOPIC NO CULTURE (10/09/2022 12:36 AM CDT) Color UA Yellow Straw, Yellow 10/09/2022 12:43 AM CDT [facility] Clarity UA Clear Clear 10/09/2022 12:43 AM CDT [facility] Glucose UA Negative Negative 10/09/2022 12:43 AM CDT [facility] Bilirubin UA Negative Negative 10/09/2022 12:43 AM CDT [facility] Ketone UA Negative Negative 10/09/2022 12:43 AM CDT [facility] Specific [place] UA 1.017 1.005 - 1.030 10/09/2022 12:43 AM CDT [facility] Blood UA 2+(A) Negative 10/09/2022 12:43 AM CDT [facility] pH UA 8.0 5.0 - 8.0 pH 10/09/2022 12:43 AM CDT [facility] Protein UA Negative Negative 10/09/2022 12:43 AM CDT [facility] Urobilinogen UA Negative Negative mg/dL 10/09/2022 12:43 AM CDT [facility] Nitrite UA Negative Negative 10/09/2022 12:43 AM CDT [facility] Leukocyte UA Negative Negative 10/09/2022 12:43 AM CDT [facility] Urine Microscopy Urine microscopy to follow 10/09/2022 12:43 AM CDT [facility] Urine URINE SPECIMEN OBTAINED BY CLEAN CATCH PROCEDURE / Unknown Collection / Unknown 10/09/2022 12:36 AM CDT 10/09/2022 12:38 AM CDT Narrative [facility] - 10/09/2022 12:43 AM CDT Grant Cedillo LAB - URINALYSI S ORDERABLES Performing Organization Address City/[facility]/ZIP Co de Phone Number [facility] [address] [place] [phone] * URINE MICROSCOPIC ONLY (10/09/2022 12:36 AM CDT) RBC UA 3-5 0 - 5 # /hpf 10/09/2022 12:46 AM CDT [facility] WBC UA 0-5 0 - 5 # /hpf 10/09/2022 12:46 AM CDT [facility] Bacteria UA None Seen None Seen 10/09/2022 12:46 AM CDT [facility] Squamous Epithelial Cells 3-5 0 - 5 /hpf 10/09/2022 12:46 AM CDT [facility] Mucus UA 1+ /LPF 10/09/2022 12:46 AM CDT [facility] Urine URINE SPECIMEN OBTAINED BY CLEAN CATCH PROCEDURE / Unknown Collection / Unknown 10/09/2022 12:36 AM CDT 10/09/2022 12:38 AM CDT Narrative [facility] - 10/09/2022 12:46 AM CDT Grant Cedillo LAB - URINALYSI S ORDERABLES Performing Organization Address City/[facility] Co de Phone Number [facility] [address] [place] [phone] * (ABNORMAL) CBC W AUTO DIFFERENTIAL (10/09/2022 12:35 AM CDT) WBC 8.4 4.4 - 10.7 x10E9/L 10/09/2022 12:40 AM CDT [facility] WBC Corrected 10/09/2022 12:40 AM CDT [facility] RBC 4.64 3.80 - 5.20 x10E12/L 10/09/2022 12:40 AM CDT [facility] Hemoglobin 12.0 12.0 - 15.6 gm/dL 10/09/2022 12:40 AM CDT [facility] Hematocrit 37.5 35.9 - 45.5 % 10/09/2022 12:40 AM CDT [facility] MCV 80.8 80.7 - 98.3 fl 10/09/2022 12:40 AM CDT [facility] MCH 25.9(L) 26.7 - 34.0 pg 10/09/2022 12:40 AM CDT [facility] MCHC 32.0 30.8 - 35.9 gm/dL 10/09/2022 12:40 AM [facility] Platelet Count 327 153 - 416 x10E9/L 10/09/2022 12:40 AM CDT [facility] RDW-CV 14.3 12.1 - 14.9 % 10/09/2022 12:40 AM CDT [facility] MPV 10.5 9.4 - 12.9 fl 10/09/2022 12:40 AM CDT [facility] Neutrophils % 53.3 44.0 - 73.0 % 10/09/2022 12:40 AM CDT [facility] Lymphocytes % 37.6 20.0 - 43.0 % 10/09/2022 12:40 AM CDT [facility] Monocytes % 5.9 5.0 - 13.0 % 10/09/2022 12:40 AM CDT [facility] Eosinophils % 2.6 0.0 - 6.0 % 10/09/2022 12:40 AM CDT [facility] Basophils % 0.5 0.0 - 2.0 % 10/09/2022 12:40 AM CDT [facility] Immature Granulocytes 0.1 0 - 1 % 10/09/2022 12:40 AM CDT [facility] Neutrophil Absolute 4.49 2.01 - 7.14 x10E9/L 10/09/2022 12:40 AM CDT [facility] Lymphocytes Absolute 3.17 1.07 - 3.94 x10E9/L 10/09/2022 12:40 AM CDT [facility] Monocytes Absolute 0.50 0.26 - 1.07 x10E9/L 10/09/2022 12:40 AM CDT [facility] Eosinophils Absolute 0.22 0 - 0.47 x10E9/L 10/09/2022 12:40 AM CDT [facility] Basophils Absolute 0.04 0 - 0.08 x10E9/L 10/09/2022 12:40 AM CDT [facility] Immature Granulocytes Absolute 0.01 0.00 - 0.06 x10E9/L 10/09/2022 12:40 AM CDT [facility] nRBC Auto 0 /100 WBC 10/09/2022 12:40 AM CDT [facility] Blood BLOOD SPECIMEN / Unknown Venipuncture / Unknown 10/09/2022 12:35 AM CDT 10/09/2022 12:38 AM CDT Grant Cedillo DO LAB - HEMATOLOG Y ORDERABLES Performing Organization Address City/State/[facility] Co de Phone Number [facility] [address] [place] [address] * B-TYPE NATRIURETIC PEPTIDE (10/09/2022 12:35 AM CDT) BNP <10 <=100 pg/mL 10/09/2022 1:04 AM CDT [facility] Blood BLOOD SPECIMEN / Unknown Venipuncture / Unknown 10/09/2022 12:35 AM CDT 10/09/2022 12:38 AM CDT Narrative [facility] - 10/09/2022 1:04 AM CDT A cutoff of 100 pg/mL has been demonstrated to provide the maximal combination of sensitivity, specificity, and negative predictive value for contributing to the diagnosis of congestive heart failure (CHF) only. ??A B-Type Natriuretic Peptide (BNP) value greater than or equal to 100 pg/mL is consistent with a diagnosis of CHF in the appropriate clinical setting. ??False positive results are more common in females greater than 75 years of age. ??Blood concentrations of natriuretic peptides may also be elevated in patients with myocardial infarction and in patients who are candidates for or are undergoing renal dialysis. Grant Guzman Nguyen STYLES LAB - CHEMISTRY ORDERABLES [facility] [address] [place], [place] [phone] * (ABNORMAL) COMPREHENSIVE METABOLIC PANEL (10/09/2022 12:35 AM CDT) [facility] Glucose 102 70 - 105 mg/dL 10/09/2022 12:54 AM CDT [facility] Sodium 140 136 - 145 mmol/L 10/09/2022 12:54 AM CDT [facility] Potassium 4.1 3.5 - 5.1 mmol/L 10/09/2022 12:54 AM CDT [facility] Chloride 110(H) 98 - 107 mmol/L 10/09/2022 12:54 AM CDT [facility] CO2 21(L) 22 - 29 mmol/L 10/09/2022 12:54 AM CDT [facility] Calcium 9.9 8.4 - 10.4 mg/dL 10/09/2022 12:54 AM CDT [facility] Anion Gap 9 6 - 16 mmol/L 10/09/2022 12:54 AM CDT [facility] BUN 10 5.3 - 18.7 mg/dL 10/09/2022 12:54 AM CDT [facility] Creatinine 0.72 0.57 - 1.11 mg/dL 10/09/2022 12:54 AM CDT [facility] Alkaline Phosphatase 77 40 - 150 U/L 10/09/2022 12:54 AM CDT [facility] ALT 23 0 - 55 U/L 10/09/2022 12:54 AM CDT [facility] AST 19 5 - 34 U/L 10/09/2022 12:54 AM CDT [facility] Protein Total 7.9 6.4 - 8.3 gm/dL 10/09/2022 12:54 AM CDT [facility] Albumin 4.6 3.4 - 5.0 gm/dL 10/09/2022 12:54 AM CDT [facility] Bilirubin Total 0.3 0.2 - 1.2 mg/dL 10/09/2022 12:54 AM CDT [facility] eGFR by CKD-EPI >90 >=90 mL/min/1.7 3 m2 10/09/2022 12:54 AM CDT [facility] Blood BLOOD SPECIMEN / Unknown Venipuncture / Unknown 10/09/2022 12:35 AM CDT 10/09/2022 12:38 AM CDT Grant Cedillo DO LAB - CHEMISTRY ORDERABLES Performing Organization Address City/State/[facility] Co de Phone Number [facility] [address] [place] [address] * HCG BETA BLOOD QUANTITATIVE (10/09/2022 12:35 AM CDT) hCG Quantitative <2.42 mIU/mL 10/10/19 12:59 AM CDT [facility] Blood BLOOD SPECIMEN / Unknown Venipuncture / Unknown 10/09/2022 12:35 AM CDT 10/09/2022 12:38 AM CDT Narrative [facility] - 10/09/2022 12:59 AM CDT ? hCG Reference Range, mIU/mL: ? Males ? 0-2.0 ? Non Females ? 0-6.0 ? Perimenopausal Females ages 41-55* ?0-7.7 ? Postmenopausal Females age >55* ? 0-14 ? Females, Weeks after Last Menstrual Period ?0.2-1 week ? 5-50 ?1 - 2 weeks ?50-500 ?2 - 3 weeks ?100-5000 ?3 - 4 weeks ?500-10,000 ?4 - 5 weeks ?1000-50,000 ?5 - 6 weeks ?10,000-100,000 ?6 - 8 weeks ?15,000-200,000 ?2 - 3 months ? 10,000-100,000 ?Trophoblastic Disease ?>100,000 *In higher than expected hCG in females > age 40, a serum FSH >20 IU/L makes unlikely. Grant Cedillo DO LAB - CHEMISTRY ORDERABLES Performing Organization Address [facility] de Phone Number [facility] [address] [place], [place] [phone] * LIPASE BLOOD (10/09/2022 12:35 AM CDT) Lipase 14 <60 U/L 10/09/2022 12:54 AM CDT [facility] Blood BLOOD SPECIMEN / Unknown Venipuncture / Unknown 10/09/2022 12:35 AM CDT 10/09/2022 12:38 AM CDT Grant Cedillo DO LAB - CHEMISTRY ORDERABLES Performing Organization Address [facility] de Phone Number [facility] [address] [place] [phone] * CT HEAD WO CONTRAST (10/09/2022 12:18 AM CDT) Anatomical Region Laterality Modality Head Computed Tomogra phy 10/09/2022 8:05 AM CDT Impressions 10/09/2022 8:06 AM CDT IMPRESSION: 1. ??Unremarkable brain > Interpreting Provider: Lizbeth Uribe MD on 10/09/2022 8:06 AM Narrative 10/09/2022 8:06 AM CDT PROCEDURE: ??CT HEAD WO CONTRAST DATE/TIME OF EXAM: ??10/09/2022 12:18 AM CLINICAL INFORMATION: None relevant/not provided if blank. Indication: R51.9: Headache, unspecified Additional History: COMPARISON: None. TECHNIQUE: Noncontrast CT brain was performed utilizing standard protocol. CT dose reduction technique was used, including Automated Exposure Control. FINDINGS: There is no CT evidence for acute ischemia, mass or hemorrhage. ??No extra-axial fluid collection, midline shift or hydrocephalus. ??Sulci and ventricles are appropriate in size for age. There are bilateral calcifications in the posterior compartments of the globes. ??The visualized paranasal sinuses and mastoid air cells are clear. Procedure Note Lizbeth Uribe MD - 10/09/2022 PROCEDURE: CT HEAD WO CONTRAST DATE/TIME OF EXAM: 10/09/2022 12:18 AM CLINICAL INFORMATION: None relevant/not provided if blank. Indication: R51.9: Headache, unspecified Additional History: COMPARISON: None. TECHNIQUE: Noncontrast CT brain was performed utilizing standard protocol. CT dose reduction technique was used, including Automated ExposureControl. FINDINGS: There is no CT evidence for acute ischemia, mass or hemorrhage. No extra-axial fluid collection, midline shift or hydrocephalus. Sulci and ventricles are appropriate in size for age. There are bilateral calcifications in the posterior compartments of the globes. The visualized paranasal sinuses and mastoid air cells areclear. IMPRESSION: 1. Unremarkable brain > Interpreting Provider: Lizbeth Uribe MD on 10/09/2022 8:06 AM Grant Cedillo DO CT ORDERABLES * HCG URINE QUALITATIVE (10/08/2022 11:52 PM CDT) hCG Qualitative Urine Negative Negative 10/09/2022 12:02 AM CDT [facility] Urine URINE / Unknown 10/08/2022 1 1:52 PM CDT 10/08/2022 11:52 PM CDT Grant Cedillo DO LAB - URINALYSI S ORDERABLES [facility] [address] [place] [phone] * SONOGRAM - COMPLETE (03/16/2022 1:55 PM ELECTROLOG OPERATOR) Anatomical Region Laterality Modality Other 03/16/2022 1:55 PM ELECTROLOG OPERATOR Narrative 03/17/2022 9:50 AM ELECTROLOG OPERATOR ? [facility] ?PHONE: ??FAX: ? Pat. Name: ?JAZMIN JUAN Pat. No: ?[id number] Study Date: ?? 03/16/2022 ??1:55pm , Age: ? 2000, 21 Pregnancies: ?? 3, Para 1011 Height: ? 64 in Weight: ? 158 lb LMP: ?09/23/2021 GA by LMP: ?24w6d GA by US: ? 26w0d ?? NENA: 06/22/2022 GA Selected: ??24w6d (LMP) NENA: ?06/30/2022 Referring MD: Wilmar Casas MD Steel Shot Header Operator: ??Isamar Lopez, MABEL, RONNIE CPT4: ? 80316 BMI: ?27.12 Hist/Ind: ? Anatomic Survey ?Virgie-Low Risk Female MEASUREMENTS & AGE ? GROWTH EVALUATION Measurement ??GA ? Range ? Srce %for GA Ratios ----- ---- ------- BPD ??6.2 cm 25w1d (83j7r-60z6g) Hadl BPD 52% FL/BPD 0.79 (0.71 - 0.87) HC ??23.6 cm 25w5d (67f4r-43z6v) Hadl HC ??58% FL/AC ??0.22 (0.20 - 0.24) AC ??22.1 cm 26w3d (64q2t-83h2t) Hadl AC ??86% HC/AC ??1.07 (1.02 - 1.21) FL ?? 4.9 cm 26w3d (58n9m-47o8k) Hadl FL ??82% CI ? 0.73 (0.70 - 0.86) HL ?? 4.4 cm 26w3d (69f0d-74r5y) Juan HL ??75% Cere 2.9 cm 25w4d (24p8w-89m4d) Hill Cere64% GA for sonogram 26w0d (01t9w-53k6x) ?? Weight Estimate: based on (BPD,HC,AC,FL) Avg ?Weight: 920 gm (786-1054gm) Hadlo ? : 2lbs, 0oz ? Normal: 774 gm (580-967gm) Hadloc ? Wt% ? 93% for 24w6d Heart Rate: 145 bpm EVAL, PLACENTA Presentation: cephalic Umbilical Cord: 3 Vessels Placenta: posterior Previa: no previa seen Heart Rate: 145 bpm Amniotic Fluid Volume: normal Anatomy!Normal!Abnormal!Suboptimal!Prev. Seen!Comments Cranium ?! ?? x ??! ?! ?! ?! Mdl (CSP/Thal! ?? x ??! ?! ?! ?! Ventricles ?? ! ?? x ??! ?! ?! ?! Choroid Plexu! ?? x ??! ?! ?! ?! Cerebellum ?? ! ?? x ??! ?! ?! ?! Cisterna M. ??! ?? x ??! ?! ?! ?! Orbits ? ! ?? x ??! ?! ?! ?! Profile ?! ?? x ??! ?! ?! ?! Nasal Bone ?? ! ?? x ??! ?! ?! ?! Lip ?! ?? x ??! ?! ?! ?! Spine ?! ?? x ??! ?! ?! ?! Lungs ?! ?? x ??! ?! ?! ?! 4 Chamber Hea! ?? x ??! ?! ?! ?! LVOT ? ! ?? x ??! ?! ?! ?! RVOT ? ! ?? x ??! ?! ?! ?! 3 Vessel View! ?? x ??! ?! ?! ?! 3 Vessel Trac! ?? x ??! ?! ?! ?! Cross-over ?? ! ?? x ??! ?! ?! ?! Ductal Arch ??! ?? x ??! ?! ?! ?! Aortic Arch ??! ?? x ??! ?! ?! ?! Caval View ?? ! ?? x ??! ?! ?! ?! Situs ?! ?? x ??! ?! ?! ?! Diaphragm ?! ?? x ??! ?! ?! ?! Stomach ?! ?? x ??! ?! ?! ?! Bowel ?! ?? x ??! ?! ?! ?! Kidneys ?! ?? x ??! ?! ?! ?! Bladder ?! ?? x ??! ?! ?! ?! 3 Vessel Cord! ?? x ??! ?! ?! ?! Cord In! ?? x ??! ?! ?! ?! Upper Extremi! ?? x ??! ?! ?! ?! Hands ?! ?? x ??! ?! ?! ?! Lower Extremi! ?? x ??! ?! ?! ?! Feet ? ! ?? x ??! ?! ?! ?! External Lynn! ?! ?! ?! ?!Female Placental Cor! ?? x ??! ?! ?! ?! CLINICAL SUMMARY A single fetus is seen in cephalic presentation. ??The measurements today are consistent with accelerated size. ??The NENA is based on LMP and a prior outside ultrasound. ??The amniotic fluid volume is within normal limits. ?? IMPRESSION: Single, live intrauterine at 24w6d ?? size is within normal limits ?? Amniotic fluid volume: within normal limits ?? No major malformations were seen within the limitations of ultrasound ?? RECOMMEND: Ultrasound follow-up if later clinically indicated Thank you for allowing us the opportunity to care for your patient Abelardo Rousseau MD <Electronic Signature> ??03/16/2022 02:48pm Revised Wilmar Casas MD [facility] ORDERABLES
--- OUTSIDE RECORDS SUMMARY | 2024-03-10 15:12 | XMS_ITS | Clinical Summary ---
Author Organization [facility] Address [address] [place] [id number] Care Team Providers Care Ad Clerk Name Role Phone Unavailable Primary Care Provider Unavailabl e Social History Tobacco Use Types Packs/Day Years Used Date Smoking Tobacco: Never Assessed Comments Unknown Sex and Gender Information Value Date Recorded Sex Assigned at Not on file Legal Sex Female 8:01 AM CDT Gender Identity Not on file Sexual Orientation Not on file Plan of Treatment Health Maintenance Due Date Last Done Comments CHLAMYDIA SCREENING (ANNUAL) 11-24 YEARS 09/17/2011 HPV VACCINES (1 - 3-dose series) 09/17/2015 DTAP/TDAP/TD VACCINES (1 - Tdap) 09/17/2019 HEPATITIS B VACCINES (1 of 3 - 19+ 3-dose series) 09/17/2019 CERVICAL CANCER SCREENING 2021 INFLUENZA VACCINE (#1) 2023 PNEUMOCOCCAL VACCINE 0-64 YEARS Aged Out No longer eligible based on patient's age to complete this topic Insurance [facility] MEDICAID
--- OUTSIDE RECORDS SUMMARY | 2024-03-10 15:12 | XMS_ITS | Clinical Summary ---
Author Organization [facility] Address [address] [place] [address] Care Team Providers Care Supervisor Production Department Name Role Phone Unavailable Primary Care Provider Unavailabl e Source Comments [facility],non-owned Affiliates and Associated Physician Practices is amultiple site organization consisting of ambulatory clinics and hospital sitesin [place], [place], [place] and [place]. This disclosure is being madepursuant to the Care Everywhere program and may not contain all information available regarding this patient. Last updated 17.[facility] Allergies No known active allergies Social History [...] 10/08/2022 10:49 PM CDT Plan of Treatment Health Maintenance Due Date Last Done Comments HIV SCREENING 09/17/2015 HPV VACCINE (1 - 3-dose series) 09/17/2015 CHLAMYDIA/GONORRHEA SCREENING 2016 MENINGOCOCCAL (Group B) VACCINE (1 of 2 - Standard) 2016 HEPATITIS C SCREENING 09/12/2018 DTAP/TDAP/TD VACCINES (1 - Tdap) 09/17/2019 HEPATITIS B VACCINE (1 of 3 - 19+ 3-dose series) 09/17/2019 PAP SMEAR 07/23/2023 07/22/2020, 07/22/2020 COVID-19 VACCINE (1 - 2023-2 5 season) 2023 INFLUENZA VACCINE (#1) 2023 3, 01/08/2005 DEPRESSION SCREENING 02/09/2024 ZOSTER VACCINE (1 of 2) 2050 HIB VACCINE Aged Out No longer eligi ble based on patient's age to complete this topic MENINGOCOCCAL VACCINE Aged Out No danika pablo eligible based on patient's age to complete this topic PNEUMOCOCCAL VACCINE Aged Out No long er eligible based on patient's age to complete this topic
--- OUTSIDE RECORDS SUMMARY | 2024-03-10 15:12 | XMS_ITS | Data Portability ---
Author Organization [facility] [employer] , [facility] Address [address] [place] [address] Assessment Encounter Date Assessment Date Assessment LastModified by Organization Details LastModified Time 03/16/2023 03/16/2023 -TVUS reviewed from ER on 02/20 and discussed with patient that US was normal. Labs with Ellen LOVING on 02/25 WNL. Pt had Depo shot 3 months ago. She is currently due for Depo. She declines wanting to continue it. Declines wanting to start another form of Control. Education given on AUB after Depo. [email or web address] Not available 03/16/2023 14:29:39 Plan of Treatment Reminders Order Date Submit Date Provider Last Modified By Organization Details Last Modified Time Details Appointments POLICE CAPTAIN EST 2024 10:30A M MARY LOU ARIAS Not available Not available Not available Lab bacter ial vagino sis + vagini tis panel, vagina l 2023 024 [employer] [address] [place], [address], 02/25/2023 14:29:51 prolac tin, serum 2023 024 [employer] [address] [place], [address], 02/24/2023 10:55:59 TSH, serum, reflex free T4 2023 024 [employer] [address] [place], [address], 02/24/2023 10:56:00 cultur e, urine 2023 [facility], [address] [place], [address], 09/27/2023 13:18:17 urinal ysis comple te, reflex cultur e 2023 024 [email or web address] [employer] [facility], [address] [place], [address], 10/19/2023 17:10:39 bacter ial vagino sis + vagini tis panel, vagina l 2023 [facility], [address] [place] [address], [address], 09/24/2023 13:26:12 iron + total iron-b inding capaci ty (TIBC) , serum 2023 [facility], [address] [place], [address], 09/27/2023 13:18:14 transf jan, serum 2023 024 [facility], [address] [place], [address], 09/27/2023 13:18:15 ferrit in, serum or plasma 2023 [facility], [address] [place], [address], 09/27/2023 13:18:16 iron, serum 2023 024 [email or web address] [employer] [facility], [address] [place], [address], 10/19/2023 17:10:39 hemogl obinop athy profil e, blood 2023 024 [facility], [address] [place], [address], 09/27/2023 13:18:16 CBC w/ auto diff 2023 024 [facility], [address] [place], [address], 09/24/2023 11:58:37 urinal ysis, dipsti ck 2023 024 [email or web address] [facility], [address] [place], [address], 11/03/2023 15:41:36 cultur e, urine 2023 024 [employer] [facility], [address] [facility] [place], [place], [address], 11/05/2023 03:44:30 bacter ial vagino sis + vagini tis panel, vagina l 2023 024 [facility], [address] [place], [address], 11/05/2023 15:02:47 unlist ed lab - STD screen ing ([facility]) 2023 024 [facility], [address] [place] [address], [address], 11/04/2023 18:03:53 pregna ncy test, urine 2023 024 [email or web address] [facility], [address] [place] [address], [address], 12/23/2023 12:17:59 beta-H CG, quanti tative , serum or plasma 2023 024 [facility], [address] [place] [address], [address], 12/24/2023 11:22:59 CBC w/ auto diff 2023 024 [facility], [address] [place] [address], [address], 12/24/2023 16:24:37 Referral None record ed. Procedures None record ed. Surgeries None record ed. Imaging US, transv aginal 2023 024 KATHLEEN Not available 11/05/2023 07:06:51 US, transv aginal 2023 024 [email or web address] Not available 12/23/2023 14:19:37 Medication Orders ibupro fen 800 mg tablet 2023 024 [facility] #[id number], [address], [place], [address], 09/23/2023 15:05:11 tranex amic acid 650 mg tablet 2023 024 [email or web address] [facility]/Pharmacy #[id number], [address], [place], [address], 12/23/2023 11:28:23 Prenat al 28 mg iron-8 00 mcg tablet 2023 024 [facility] #[id number], [address], [place], [address], 12/23/2023 11:28:21 Patient TargetsNo targets recorded. Patient Instructions Encounter Date Encounter Id Patient Instructions Last Modified By Organization Details Last Modified Time 09/23/2023 [id number] Urinary Tract Infection (UTI) in Women: Care Instructions [email or web address] Not available 09/23/2023 16:06:56 Reason for Referral None Reported. Results Created Date Observation Date Name Description Value Unit Range Abnormal Flag Note LastModifiedBy Organization Detail LastModifiedTime 01/26/20 23 01/27/2023 CULTU RE, URINE , ROUTI NE culture, urine, routine SEE NOTE CULTU RE, URINE , ROUTI NE Micro Numbe r: [id number] Test Statu s: Final Speci men Sourc e: Urine Speci men Quali ty: Adequ ate Resul t: Less than 10,00 0 CFU/m L of singl e Gram posit lee organ ism isola dima. No furth er testi ng will be perfo rmed. If clini arturo indic ated, recol lecti on using a metho d to minim ize conta minat ion, with promp t trans tez to Urine Cultu re Trans port Tube, is recom sylvie d. Not Available [employer] [facility] [address], [place], [address], 01/27/2023 01:04:47 01/26/20 23 01/27/2023 VAGIN ITIS PLUS STD PANEL bacterial vaginosis BV POS negati ve abnormal Not Available [address], [address], 01/27/2023 14:07:48 01/26/20 23 01/27/2023 VAGIN ITIS PLUS STD PANEL austin species C. spp neg negati ve normal Not Available [address], [address], 01/27/2023 14:07:48 01/26/20 23 01/27/2023 VAGIN ITIS PLUS STD PANEL austin glabrata C. gla neg negati ve normal Not Available [address], [address], 01/27/2023 14:07:48 01/26/20 23 01/27/2023 VAGIN ITIS PLUS STD PANEL trichomonas vaginalis CV/TV TRICH neg negati ve normal Not Available [address], [address], 01/27/2023 14:07:48 01/26/20 23 01/27/2023 VAGIN ITIS PLUS STD PANEL chlamydia trachomatis CT neg negati ve normal This repor t is inten ded for us in clini tana monit oring and manag ement of la squires. It is not inten ded for use in medic al-le gal appli catio n. Not Available [address], [address], 01/27/2023 14:07:48 01/26/20 23 01/27/2023 VAGIN ITIS PLUS STD PANEL neisseria gonorrhoeae GC neg negati ve normal This repor t is inten ded for us in clini tana monit oring and manag ement of patitoni nts. It is not inten ded for use in medic al-le gal appli catio n. Not Available Richey German [address] [place] [address], [address], 01/27/2023 14:07:48 02/23/19 24 02/24/2023 PROLA CTIN prolactin 16.1 NG/mL Refer ence Range s Femal e aged 18-Ad ult Nonpr egnan t: 2.8-2 9.2 ng/mL Pregn ant: 9.7-2 08.5 ng/mL Post- menop ausal : 1.8-2 0.3 ng/mL Pregn love, lacta tion, and the admin istra tion of oral contr acept michaela can incre ase prola ctin lizette ntrat ions. Not Available [address], [address], 02/24/2023 10:55:59 02/23/19 24 02/24/2023 TSH W/ REFLE X TSH 1.23 mIU/L 0.55 - 4.78 normal Refer ence Range Femal e aged 18-Ad ult: 0.55- 4.78 Pregn love Refer ence Range s First Trime ster 0.26- 2.66 Secon d Trime ster 0.55- 2.73 Third Trime ster 0.43- 2.91 Not Available Richey [facility] [address] [place] [address], [address], 02/24/2023 10:56:00 02/23/19 24 02/25/2023 VAGIN ITIS PLUS STD PANEL bacterial vaginosis BV POS negati ve abnormal Not Available Richey [facility] [address] [place] [address], [address], 02/25/2023 14:29:51 02/23/19 24 02/25/2023 VAGIN ITIS PLUS STD PANEL austin species C. spp POS negati ve abnormal Not Available Richey [facility] [address] [place] [address], [address], 02/25/2023 14:29:51 02/23/19 24 02/25/2023 VAGIN ITIS PLUS STD PANEL austin glabrata C. gla neg negati ve normal Not Available [address], [address], 02/25/2023 14:29:51 02/23/19 24 02/25/2023 VAGIN ITIS PLUS STD PANEL trichomonas vaginalis CV/TV TRICH neg negati ve normal Not Available [address], [address], 02/25/2023 14:29:51 02/23/19 24 02/25/2023 VAGIN ITIS PLUS STD PANEL chlamydia trachomatis CT neg negati ve normal This repor t is inten ded for us in clini tana monit oring and manag ement of patie nts. It is not inten ded for use in medic al-le gal appli catio n. Not Available [address], [address], 02/25/2023 14:29:51 02/23/19 24 02/25/2023 VAGIN ITIS PLUS STD PANEL neisseria gonorrhoeae GC neg negati ve normal This repor t is inten ded for us in clini tana monit oring and manag ement of patie nts. It is not inten ded for use in medic al-le gal appli catio n. Not Available [address], [address], 02/25/2023 14:29:51 09/23/19 24 09/24/2023 CBC (INCL UDES DIFF/ PLT) WBC 8.4 thous and/u L 4.0 - 9.8 normal Not Available [address], [address], 09/24/2023 11:58:37 09/23/19 24 09/24/2023 CBC (INCL UDES DIFF/ PLT) RBC 4.5 kimberley on/uL 3.9 - 4.9 normal Not Available [address], [address], 09/24/2023 11:58:37 09/23/19 24 09/24/2023 CBC (INCL UDES DIFF/ PLT) hemoglobin 12.4 g/dL 11.8 - 14.8 normal Not Available [address], [address], 09/24/2023 11:58:37 09/23/19 24 09/24/2023 CBC (INCL UDES DIFF/ PLT) hematocrit 38.7 % 35.5 - 44.0 normal Not Available [address], [address], 09/24/2023 11:58:37 09/23/19 24 09/24/2023 CBC (INCL UDES DIFF/ PLT) MCV 86.4 fL 82.0 - 99.0 normal Not Available [address], [address], 09/24/2023 11:58:37 09/23/19 24 09/24/2023 CBC (INCL UDES DIFF/ PLT) MCH 27.7 pg 27.2 - 32.6 normal Not Available [address], [address], 09/24/2023 11:58:37 09/23/19 24 09/24/2023 CBC (INCL UDES DIFF/ PLT) MCHC 32.0 g/dL 31.5 - 35.5 normal Not Available [address], [address], 09/24/2023 11:58:37 09/23/19 24 09/24/2023 CBC (INCL UDES DIFF/ PLT) RDW-CV 14.4 % 11.5 - 14.5 normal Not Available [address], [address], 09/24/2023 11:58:37 09/23/19 24 09/24/2023 CBC (INCL UDES DIFF/ PLT) platelet 298 thous and/u L 140 - 350 normal Not Available [address], [address], 09/24/2023 11:58:37 09/23/19 24 09/24/2023 CBC (INCL UDES DIFF/ PLT) MPV 11.2 fL 9.3 - 12.4 normal Not Available [address], [address], 09/24/2023 11:58:37 09/23/19 24 09/24/2023 CBC (INCL UDES DIFF/ PLT) absolute neutrophil 5.03 thous and/u L 1.90 - 7.00 normal Not Available [address], [address], 09/24/2023 11:58:37 09/23/19 24 09/24/2023 CBC (INCL UDES DIFF/ PLT) absolute lymphocyte 2.39 thous and/u L 0.70 - 4.50 normal Not Available [address], [address], 09/24/2023 11:58:37 09/23/19 24 09/24/2023 CBC (INCL UDES DIFF/ PLT) absolute monocyte 0.61 thous and/u L 0.10 - 1.30 normal Not Available [address], [address], 09/24/2023 11:58:37 09/23/19 24 09/24/2023 CBC (INCL UDES DIFF/ PLT) absolute eosinophil 0.32 thous and/u L <0.70 normal Not Available [address], [address], 09/24/2023 11:58:37 09/23/19 24 09/24/2023 CBC (INCL UDES DIFF/ PLT) absolute basophil 0.04 thous and/u L <0.20 normal Not Available [address], [address], 09/24/2023 11:58:37 09/23/19 24 09/24/2023 CBC (INCL UDES DIFF/ PLT) absolute immature granulocyte 0.02 thous and/u L <0.03 normal Not Available [address], [address], 09/24/2023 11:58:37 09/23/19 24 09/24/2023 VAGIN ITIS PLUS STD PANEL bacterial vaginosis BV POS negati ve abnormal Not Available [address], [address], 09/24/2023 13:26:12 09/23/19 24 09/24/2023 VAGIN ITIS PLUS STD PANEL austin species C. spp POS negati ve abnormal Not Available [address], [address], 09/24/2023 13:26:12 09/23/19 24 09/24/2023 VAGIN ITIS PLUS STD PANEL austin glabrata C. gla neg negati ve normal Not Available [address], [address], 09/24/2023 13:26:12 09/23/19 24 09/24/2023 VAGIN ITIS PLUS STD PANEL trichomonas vaginalis CV/TV TRICH neg negati ve normal Not Available [address], [address], 09/24/2023 13:26:12 09/23/19 24 09/24/2023 VAGIN ITIS PLUS STD PANEL chlamydia trachomatis CT neg negati ve normal This repor t is inten ded for us in clini tana monit oring and manag ement of la squires. It is not inten ded for use in medic al-le gal appli catio n. Not Available [address], [address], 09/24/2023 13:26:12 09/23/19 24 09/24/2023 VAGIN ITIS PLUS STD PANEL neisseria gonorrhoeae GC neg negati ve normal This repor t is inten ded for us in clini tana monit oring and manag ement of la squires. It is not inten ded for use in medic al-le gal appli catio n. Not Available Richey German [address] [place], [address], 09/24/2023 13:26:12 09/23/19 24 09/27/2023 IRON AND TOTAL IRON JUSTINE NG CAPAC ITY iron, total 35 mcg/d L 40-190 low Not Available [address] [address] [place], [address], 09/27/2023 13:18:14 09/23/19 24 09/27/2023 IRON AND TOTAL IRON JUSTINE NG CAPAC ITY iron binding capacity 452 mcg/d L_(ca lc) 250-45 0 high Not Available [address] [address] [place], [address], 09/27/2023 13:18:14 09/23/19 24 09/27/2023 IRON AND TOTAL IRON JUSTINE NG CAPAC ITY % saturation 8 %_(ca lc) 16-45 low Not Available [address] [place], [address], 09/27/2023 13:18:14 09/23/19 24 09/27/2023 URINA LYSIS , COMPL ETE color TNP TEST NOT PERFO RMED No suita ble speci men recei kailee. Pleas e revie w the test requi remen ts at testd irect ory.q uestd iagno stics .com Not Available [address] [address] [place], [address], 09/27/2023 13:18:15 09/23/19 24 09/27/2023 TRANS FILI N transferrin 353 mg/dL 188-34 1 high Not Available [address] [address] [place], [address], 09/27/2023 13:18:15 09/23/19 24 09/27/2023 HEMOG LOBIN OPATH Y EVALU ATION red blood cell count 4.56 kimberley on/uL 3.80-5 .10 Not Available [address], [address], 09/27/2023 13:18:16 09/23/19 24 09/27/2023 HEMOG LOBIN OPATH Y EVALU ATION hemoglobin 12.5 g/dL 11.7-1 5.5 Not Available [address] [place], [address], 09/27/2023 13:18:16 09/23/1909/27/2023 HEMOG LOBIN OPATH Y EVALU ATION hematocrit 41.5 % 35.0-4 5.0 Not Available [address], [address], 09/27/2023 13:18:16 09/23/19 24 09/27/2023 HEMOG LOBIN OPATH Y EVALU ATION MCV 91.0 fL 80.0-1 00.0 Not Available [address], [address], 09/27/2023 13:18:16 09/23/1909/27/2023 HEMOG LOBIN OPATH Y EVALU ATION MCH 27.4 pg 27.0-3 3.0 Not Available [address], [address], 09/27/2023 13:18:16 09/23/19 24 09/27/2023 HEMOG LOBIN OPATH Y EVALU ATION RDW 14.1 % 11.0-1 5.0 Not Available [address], [address], 09/27/2023 13:18:16 09/23/19 24 09/27/2023 HEMOG LOBIN OPATH Y EVALU ATION hemoglobin A 97.4 % >96.0 Not Available [address] [address] [place], [address], 09/27/2023 13:18:16 09/23/19 24 09/27/2023 HEMOG LOBIN OPATH Y EVALU ATION hemoglobin F <1.0 % <2.0 Not Available [address] [address] [place], [address], 09/27/2023 13:18:16 09/23/19 24 09/27/2023 HEMOG LOBIN OPATH Y EVALU ATION hemoglobin A2 (quant) 2.6 % 2.0-3. 2 Not Available [address] [address] [place], [address], 09/27/2023 13:18:16 09/23/1909/27/2023 HEMOG LOBIN OPATH Y EVALU ATION interpretati on Maddie l pheno type. Maddie l hemog lobin distr ibuti on, no HgS, HgC or other abnor mal hemog lobin obser kailee. Not Available [address] [address] [place], [address], 09/27/2023 13:18:16 09/23/19 24 09/27/2023 FILI TIN ferritin 12 NG/mL 16-154 low Not Available [address], [address], 09/27/2023 13:18:16 09/23/19 24 09/27/2023 CULTU RE, URINE , ROUTI NE culture, urine, routine SEE NOTE CULTU RE, URINE , ROUTI NE Micro Numbe r: [id number] Test Statu s: Final Speci men Sourc e: Urine Speci men Quali ty: Adequ ate Resul t: Mixed genit al ian isola dima. These super ficia l bacte masood are not indic ative of a urina ry tract infec tion. No furth er organ ism ident ifica tion is warra nted on this speci men. If clini arturo indic ated, recol lect clean -catc h, mid-s tream urine and trans tez immed iatel y to Urine Cultu re Trans port Tube. Not Available [facility] [address] [address] [place], [address], 09/27/2023 13:18:17 11/03/19 24 11/04/2023 STD SCREE BRUCE ([facility] ) hep BS Ag Non-Re active non-re active normal Not Available [address], [address], 11/04/2023 18:03:53 11/03/19 24 11/04/2023 STD SCREE BRUCE ([facility] ) hep C Ab Non-Re active non-re active normal Not Available [address], [address], 11/04/2023 18:03:53 11/03/19 24 11/04/2023 STD SCREE [facility] ([facility] ) HIV 1/2 Ag/Ab Non-Re active non-re active normal Not Available [address], [address], 11/04/2023 18:03:53 11/03/19 24 [facility]/04[facility] syphilis Ab Non-Re active non-re active normal Not Available [address], [address], 11/04/2023 18:03:53 11/03/19 24 11/05/2023 CULTU RE, URINE , ROUTI NE culture, urine, routine SEE NOTE CULTU RE, URINE , ROUTI NE Micro Numbe r: [id number] Test Statu s: Final Speci men Sourc e: Urine Speci men Quali ty: Adequ ate Resul t: No Growt h Not Available [facility] [address] [address] [place], [address], 11/05/2023 03:44:30 11/03/19 24 11/05/2023 VAGIN ITIS PLUS STD PANEL bacterial vaginosis BV neg negati ve normal Not Available [address], [address], 11/05/2023 15:02:46 11/03/19 24 11/05/2023 VAGIN ITIS PLUS STD PANEL austin species C. spp neg negati ve normal Not Available [address], [address], 11/05/2023 15:02:46 11/03/19 24 11/05/2023 VAGIN ITIS PLUS STD PANEL austin glabrata C. gla neg negati ve normal Not Available [address], [address], 11/05/2023 15:02:46 11/03/19 24 11/05/2023 VAGIN ITIS PLUS STD PANEL trichomonas vaginalis CV/TV TRICH neg negati ve normal Not Available [address], [address], 11/05/2023 15:02:46 11/03/19 24 11/05/2023 VAGIN ITIS PLUS STD PANEL chlamydia trachomatis CT neg negati ve normal This repor t is inten ded for us in clini tana monit oring and manag ement of patie nts. It is not inten ded for use in medic al-le gal appli catio n. Not Available [address], [address], 11/05/2023 15:02:46 11/03/19 24 11/05/2023 VAGIN ITIS PLUS STD PANEL neisseria gonorrhoeae GC neg negati ve normal This repor t is inten ded for us in clini tana monit oring and manag ement of patie nts. It is not inten ded for use in medic al-le gal appli catio n. Not Available [address], [address], 11/05/2023 15:02:46 11/03/19 24 11/03/2023 urina lysis , dipst ick Leukocytes Negati ve Not Available [address], [place], [address], 11/03/2023 15:15:56 11/03/19 24 11/03/2023 urina lysis , dipst ick Nitrite negati ve Not Available [address], [place], [address], 11/03/2023 15:15:56 11/03/19 24 11/03/2023 urina lysis , dipst ick Urobilinogen .2 Not Available [address], [place], [address], 11/03/2023 15:15:56 11/03/19 24 11/03/2023 urina lysis , dipst ick Protein Trace Not Available [address], [place], [address], 11/03/2023 15:15:56 11/03/19 24 11/03/2023 urina lysis , dipst ick pH 7.0 Not Available [address], [place], [address], 11/03/2023 15:15:56 11/03/19 24 11/03/2023 urina lysis , dipst ick Blood Modera te Not Available [address], [place], [address], 11/03/2023 15:15:56 11/03/19 24 11/03/2023 urina lysis , dipst ick Specific [place] 1.015 Not Available [facility] [address], [place], [address], 11/03/2023 15:15:56 11/03/19 24 11/03/2023 urina lysis , dipst ick Ketone Trace Not Available [address], [place], [address], 11/03/2023 15:15:56 11/03/19 24 11/03/2023 urina lysis , dipst ick Bilirubin Negati ve Not Available [address], [place], [address], 11/03/2023 15:15:56 11/03/19 24 11/03/2023 urina lysis , dipst ick Glucose Negati ve Not Available [address], [place], [address], 11/03/2023 15:15:56 11/03/19 24 11/03/2023 urina lysis , dipst ick Appearance Clear Not Available [address], [place], [address], 11/03/2023 15:15:56 11/03/19 24 11/03/2023 urina lysis , dipst ick Color Pale Yellow Not Available [address], [place], [address], 11/03/2023 15:15:56 12/23/1912/24/2023 HCG, TOTAL , QUANT HCG, total, quant < 2 mIU/m L < 5 Refer ence Range s are for femal es aged 18 years - Adult Nonpr egnan t or preme nopau beronica <5 Postm enopa usal <10 Value s from diffe rent assay metho ds may vary. The use of this assay to monit or or to diagn ose patie nts with cance r or any other condi tion unrel ated to pregn love has not been valid ated by the manuf actur er of this assay . Not Available [address], [address], 12/24/2023 11:22:59 12/23/1912/24/2023 CBC (INCL UDES DIFF/ PLT) WBC 5.5 thous and/u L 4.0 - 9.8 normal Not Available [address], [address], 12/24/2023 16:24:37 12/23/19 24 12/24/2023 CBC (INCL UDES DIFF/ PLT) RBC 4.4 kimberley on/uL 3.9 - 4.9 normal Not Available [address], [address], 12/24/2023 16:24:37 12/23/19 24 12/24/2023 CBC (INCL UDES DIFF/ PLT) hemoglobin 12.1 g/dL 11.8 - 14.8 normal Not Available [address], [address], 12/24/2023 16:24:37 12/23/19 24 12/24/2023 CBC (INCL UDES DIFF/ PLT) hematocrit 38.2 % 35.5 - 44.0 normal Not Available [address], [address], 12/24/2023 16:24:37 12/23/19 24 12/24/2023 CBC (INCL UDES DIFF/ PLT) MCV 87.4 fL 82.0 - 99.0 normal Not Available [address], [address], 12/24/2023 16:24:37 12/23/19 24 12/24/2023 CBC (INCL UDES DIFF/ PLT) MCH 27.7 pg 27.2 - 32.6 normal Not Available [address], [address], 12/24/2023 16:24:37 11/14/12/24/2023 CBC (INCL UDES DIFF/ PLT) MCHC 31.7 g/dL 31.5 - 35.5 normal Not Available [address], [address], 12/24/2023 16:24:37 12/23/19 24 12/24/2023 CBC (INCL UDES DIFF/ PLT) RDW-CV 13.0 % 11.5 - 14.5 normal Not Available [address], [address], 12/24/2023 16:24:37 12/23/19 24 12/24/2023 CBC (INCL UDES DIFF/ PLT) platelet 280 thous and/u L 140 - 350 normal Not Available [address], [address], 12/24/2023 16:24:37 12/23/19 24 12/24/2023 CBC (INCL UDES DIFF/ PLT) MPV 11.5 fL 9.3 - 12.4 normal Not Available [address], [address], 12/24/2023 16:24:37 12/23/19 24 12/24/2023 CBC (INCL UDES DIFF/ PLT) absolute neutrophil 2.62 thous and/u L 1.90 - 7.00 normal Not Available [address], [address], 12/24/2023 16:24:37 12/23/19 24 12/24/2023 CBC (INCL UDES DIFF/ PLT) absolute lymphocyte 2.12 thous and/u L 0.70 - 4.50 normal Not Available [address], [address], 12/24/2023 16:24:37 12/23/19 24 12/24/2023 CBC (INCL UDES DIFF/ PLT) absolute monocyte 0.46 thous and/u L 0.10 - 1.30 normal Not Available [address], [address], 12/24/2023 16:24:37 12/23/19 24 12/24/2023 CBC (INCL UDES DIFF/ PLT) absolute eosinophil 0.21 thous and/u L <0.70 normal Not Available [address], [address], 12/24/2023 16:24:37 12/23/19 24 12/24/2023 CBC (INCL UDES DIFF/ PLT) absolute basophil 0.03 thous and/u L <0.20 normal Not Available [address], [address], 12/24/2023 16:24:37 12/23/19 24 12/24/2023 CBC (INCL UDES DIFF/ PLT) absolute immature granulocyte 0.02 thous and/u L <0.03 normal Not Available [address], [address], 12/24/2023 16:24:37 12/23/19 24 12/23/2023 pregn love test, urine HCG negati ve Not Available [facility] [address] [place], [address], 12/23/2023 11:39:47 11/05/19 24 11/03/2023 US, trans vagin al No observ ation record ed. [email or web address] [address], [place], [address], 11/08/2023 17:34:32 12/23/19 24 12/23/2023 US, trans vagin al No observ ation record ed. [email or web address] [address], [place], [address], 12/24/2023 09:52:08 Result Notes None recorded. 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 ; Progress : Stable Added By: Charity Villalobos Add to Current Problems : NO ProblemS tatus: Resolve Not Available [facility] 2 20:44:52 Clinical finding Completed 202010/15/2020 state, incident al; Progress : Stable Added By: Bala Grant Add to Current Problems : NO ProblemS tatus: Resolve Not Available [facility] 2 14:41:03 Gestatio n period, 17 weeks [id number] Completed 202008/06/2020 17 weeks gestatio n of pregnanc y; Progress : Stable Added By: Cecilia Anne Add to Current Problems : NO ProblemS tatus: Resolve Not Available [facility] 2 20:44:50 Pregnanc y, childbir th and puerperi um finding Completed 202006/18/2020 Encounte r for supervis ion of normal first pregnanc y, first trimeste r; Progress : Stable Added By: Cecilia Anne Add to Current Problems : NO ProblemS tatus: Resolve Not Available [facility] 2 20:44:51 Syphilis test finding [id number] Completed 202008/06/2020 Encounte r for screenin g for infectio ns with a predomin antly sexual mode of transmis mp; Progress : Stable Added By: Mariely Shaffer Add to Current Problems : NO ProblemS tatus: Resolve Not Available [facility] 2 20:44:[address] Concept Completed 202010/15/2020 Decrease d movement s, third trimeste r, fetus 1; Progress : Stable Added By: Lindy Oropeza Add to Current Problems : NO ProblemS tatus: Resolve Not Available [facility] 2 20:44:49 Gestatio n period, 27 weeks [id number] Completed 202010/15/2020 27 weeks gestatio n of pregnanc y; Progress : Stable Added By: Charity Villalobos Add to Current Problems : NO ProblemS tatus: Resolve Not Available [facility] 2 20:44:48 Gestatio n period, 24 weeks [id number] Completed 202010/15/2020 24 weeks gestatio n of pregnanc y; Progress : Stable Added By: Paige Rogers Add to Current Problems : NO ProblemS tatus: Resolve Not Available [facility] 2 14:41:04 Sampling of vagina for Papanico laou smear Completed 202006/18/2020 Encounte r for gynecolo gical examinat ion (general ) (routine ) without abnormal findings ; Progress : Stable Added By: Cecilia Anne Add to Current Problems : NO ProblemS tatus: Resolve Not Available [facility] 2 20:44:51 Disorder of upper respirat ory system 949928917 Completed 202010/15/2020 Acute upper respirat ory infectio n, unspecif ied; Progress : Stable Added By: Bala Grant Add to Current Problems : NO ProblemS tatus: Resolve Not Available [facility] 2 14:41:03 Gestatio n period, 28 weeks 45241610 Completed 202010/15/2020 28 weeks gestatio n of pregnanc y; Progress : Stable Added By: Leona Tavares Add to Current Problems : NO ProblemS tatus: Resolve Not Available [facility] 2 20:44:52 Gestatio n period, 20 weeks 03350942 Completed 202008/06/2020 20 weeks gestatio n of pregnanc y; Progress : Stable Added By: Griselda Daly Add to Current Problems : NO ProblemS tatus: Resolve Not Available [facility] 2 20:44:49 Gestatio n period, 8 weeks 38263047 Completed 202006/18/2020 8 weeks gestatio n of pregnanc y; Progress : Stable Added By: Cecilia Anne Add to Current Problems : NO ProblemS tatus: Resolve Not Available [facility] 2 20:44:48 Gestatio n period, 32 weeks 8003057 Completed 202010/15/2020 32 weeks gestatio n of pregnanc y; Progress : Stable Added By: Mattie Plasencia Add to Current Problems : NO ProblemS tatus: Resolve Not Available [facility]:[address] Concept Completed 202010/15/2020 Decrease d movement s, third trimeste r, not applicab le or unspecif ied; Progress : Stable Added By: Eduardo Rios Add to Current Problems : NO ProblemS tatus: Resolve Not Available [facility] 2 20:44:47 Gestatio n period, 30 weeks 32316078 Completed 202010/15/2020 30 weeks gestatio n of pregnanc y; Progress : Stable Added By: Leona Tavares Add to Current Problems : NO ProblemS tatus: Resolve Not Available [facility] 2 20:44:48 Antenata l screenin g for malforma tion Completed 202008/06/2020 Encounte r for antenata l screenin g for malforma tions; Progress : Stable Added By: Griselda Daly Add to Current Problems : NO ProblemS tatus: Resolve Not Available [facility] 2 20:44:47 Screenin g for malignan t neoplasm of cervix Completed 202006/18/2020 Encounte r for screenin g for malignan t neoplasm of cervix; Progress : Stable Added By: Cecilia Anne Add to Current Problems : NO ProblemS tatus: Resolve Not Available [facility] 2 20:44:50 Fatigue 84191185 Completed Shayy echols, [employer] [facility] 3 15:18:55 Hemorrho ids 22530524 Completed Shayy Ackerman null, [place] [facility] 3 15:18:55 Headache 63393120 Completed Shayy Ackerman null, [facility] 3 15:18:55 heart disorder 351648699 Completed Shayy Ackerman null, [facility] 3 15:18:55 Problem Notes None recorded. Procedures Surgical History Date Name Laterality Status Provider Name and Address Organization Details Recorded Time 09/23/2022 Date of Last Pap Smear completed [facility]HNAZ HENNESSY, [facility] [address] [place], [address], [facility] 09/23/2022 15:42:25 Imaging Results Imaging Date Name Status LastModified by Organization Details LastModified Time 11/03/2023 US, transvaginal completed [email or web address] Marg[address], [place], [address], 11/08/2023 17:34:32 12/23/2023 , transvaginal completed [email or web address] Marg[address], [place], [address], 12/24/2023 09:52:08 Procedure Notes None recorded. Medical Equipment None Reported. Allergies No known drug allergies Medications Name Sig Start Date Stop Date Status Note LastModified by Organization Details LastModified Time cyclobenz aprine 10 mg tablet TAKE 1 TABLET BY MOUTH THREE TIMES A DAY NEEDED FOR MUSCLE SPASMS 01/25 completed Not Available Not Available Not Available amoxicill in 500 mg capsule 01/06 completed Not Available Not Available Not Available terconazo le 0.4 % vaginal cream insert 1 applicat orful by vaginal route once daily at bedtime for 7 days 01/25 completed Not Available Not Available Not Available acetamino phen 325 mg tablet 02/23 completed Not Available Not Available Not Available Saline Mist 0.65 % nasal spray aerosol 1-2 sprays per nostral prn for nasal dryness 09/22 completed Not Available Not Available Not Available azithromy alesia 250 mg tablet TAKE 2 TABLETS BY MOUTH TODAY, THEN TAKE 1 TABLET DAILY FOR 4 DAYS 01/25 completed Not Available Not Available Not Available ibuprofen 800 mg tablet Take 1 tablet 3 times a day by oral route as needed. 09/22 completed Not Available Not Available Not Available fluconazo le 150 mg tablet TAKE 1 TABLET BY MOUTH ONCE EVERY 3 DAYS FOR 2 DOSES active Not Available Not Available No t Available valacyclo vir 1 gram tablet take 1 tablet (1,000 mg) by oral route 2 times per day 08/06 completed valACYcl ovir 1 gram oral tablet RxNorm: [id number] Allow Substitu tion: True Refill Denied: No Edited by: jaimie miranda([facility] ) on 08/07/19 Stopped by: jaimie miranda([facility] ) on 08/07/19 21 Not Available Not Available Not Available sumatript an 100 mg tablet TAKE 1 TABLET BY MOUTH EVERY DAY FOR 30 DAYS 01/25 completed Not Available Not Available Not Available ondansetr on HCl 4 mg tablet TAKE 1 TABLET BY MOUTH EVERY 8 HOURS 09/22 completed Not Available Not Available Not Available prednison e 20 mg tablet TAKE 1 TABLET BY MOUTH EVERY DAY FOR 5 DAYS 09/22 completed Not Available Not Available Not Available metronida zole 500 mg tablet TAKE 1 TABLET BY MOUTH TWICE A DAY FOR 7 DAYS active Not Available Not Available No t Available valacyclo vir 500 mg tablet TAKE 1 TABLET BY MOUTH TWICE A DAY 01/25 completed Not Available Not Available Not Available acetamino phen 500 mg tablet TAKE 2 TABLETS BY MOUTH EVERY 6 HOURS NEEDED FOR PAIN 09/23 completed Not Available Not Available Not Available acetamino phen ER 650 mg tablet,ex tended release TAKE 1 TABLET (650 MG) BY MOUTH EVERY 6 HOURS NEEDED FOR PAIN 09/22 completed Not Available Not Available Not Available hydrocort isone 2.5 % topical cream with perineal applicato r APPLY SPARINGL Y TO AFFECTED AREA 2 TO 4 TIMES A DAY 09/22 completed Not Available Not Available Not Available famotidin e 20 mg tablet TAKE 1 TABLET BYMOUTH EVERY 12 HOURS FOR 5 DAYS. active Not Available Not Available No t Available dicyclomi ne 20 mg tablet TAKE 1 TABLET BY MOUTH THREE TIMES A DAY NEEDED 09/22 completed Not Available Not Available Not Available phenazopy ridine 100 mg tablet 09/22 completed Not Available Not Available Not Available benzonata te 100 mg capsule take 1 capsule (100 mg) by oral route 3 times per day 09/02 completed benzonat ate 100 mg oral capsule RxNorm: [id number] Allow Substitu tion: True Refill Denied: No Edited by: Leona Duran ) on 09/03/19 Stopped by: kenia (Leona Tavares ) on 09/03/19 21 Not Available Not Available Not Available doxycycli ne monohydra te 100 mg capsule TAKE 1 CAPSULE BY MOUTH TWICE A DAY DIRECTED FOR 7 DAYS 01/25 completed Not Available Not Available Not Available cephalexi n 500 mg capsule 01/07 completed Not Available Not Available Not Available ferrous sulfate 325 mg (65 mg iron) tablet Take 1 tablet every day by oral route for 30 days. 12/22 completed Not Available Not Available Not Available nitrofura ntoin macrocrys jani 100 mg capsule TAKE 1 CAPSULE BY MOUTH TWICE A DAY WITH FOOD/ELIO L 12/22 completed Not Available Not Available Not Available ibuprofen 400 mg tablet 01/25 completed Not Available Not Available Not Available docusate sodium 100 mg capsule TAKE 1 CAPSULE BY MOUTH TWICE A DAY NEEDED FOR 30 DAYS 12/22 completed Not Available Not Available Not Available omeprazol e 20 mg capsule,d elayed release TAKE 1 CAPSULE BY MOUTH EVERY DAY FOR 30 DAYS FOR ACID REFLUX 09/22 completed Not Available Not Available Not Available Banophen 25 mg capsule TAKE 1 CAPSULE BY MOUTH EVERY 8 HOURS NEEDED 01/06 completed Not Available Not Available Not Available bisacodyl 5 mg tablet,de layed release TAKE 4 TABLETS BY MOUTH AT 2PM THE DAY BEFORE THE COLONOSC OPY WITH 8 OUNCES OF WATER 12/22 completed Not Available Not Available Not Available amoxicill in 400 mg/5 mL oral suspensio n TAKE 6.75 ML BY MOUTH 2 TIMES A DAY. DISCARD THE REMAINDE R* 09/22 completed Not Available Not Available Not Available ibuprofen 600 mg tablet TAKE 1 TABLET (600 MG) BY MOUTH EVERY 8 HOURS NEEDED FOR PAIN 09/22 completed Not Available Not Available Not Available levofloxa alesia 750 mg tablet TAKE 1 TABLET BY MOUTH EVERY 24 HOURS FOR 7 DAYS 09/22 completed Not Available Not Available Not Available methylpre dnisolone 4 mg tablets in a dose pack PLEASE SEE ATTACHED FOR DETAILED DIRECTIO NS 12/22 completed Not Available Not Available Not Available albuterol sulfate HFA 90 mcg/actua tion aerosol inhaler INHALE 2 PUFFS BY MOUTH EVERY 6 HOURS NEEDED FOR SHORTNES S OF BREATH active Not Available Not Available No t Available ondansetr on 4 mg disintegr ating tablet DISSOLVE 1 TABLET UNDER THE TONGUE EVERY 8 HOURS NEEDED FOR NAUSEA AND VOMITING active Not Available Not Available No t Available cefdinir 300 mg capsule TAKE 1 CAPSULE BY MOUTH EVERY 12 HOURS 09/22 completed Not Available Not Available Not Available doxycycli ne hyclate 100 mg tablet TAKE 1 TABLET BY MOUTH TWICE A DAY 01/06 completed Not Available Not Available Not Available fluticaso ne propionat e 110 mcg/actua tion HFA aerosol inhaler INHALE 1 PUFF BY MOUTH TWICE A DAY DIRECTED FOR PREVENTI ON OF ASTHMA ATTACKS 12/22 completed Not Available Not Available Not Available naproxen 500 mg tablet TAKE 1 TABLET BY MOUTH 2 TIMES PER DAY WITH FOOD active Not Available Not Available No t Available metoclopr amide 10 mg tablet TAKE 1 TABLET BY MOUTH FOUR TIMES A DAY 01/25 completed Not Available Not Available Not Available amoxicill in 875 mg-potass ium clavulana te 125 mg tablet TAKE 1 TABLET BY MOUTH EVERY 12 HOURS DIRECTED FOR 7 DAYS active Not Available Not Available No t Available medroxypr ogesteron e 150 mg/mL intramusc ular syringe INJECT 1 MILLILIT ER INTRAMUS CULARLY EVERY 3 MONTHS 09/22 completed Not Available Not Available Not Available nitrofura ntoin monohydra te/macroc rystals 100 mg capsule TAKE 1 CAPSULE BY MOUTH TWICE A DAY FOR 7 DAYS 09/22 completed Not Available Not Available Not Available metronida zole 1 % topical gel APPLY 1 APPLICAT ION ONTO THE AFFECTED AREA(S) ON THE SKIN DAILY AT BEDTIME 09/22 completed Not Available Not Available Not Available Vitamins 02/23 completed Not Available Not Available Not Available 04/08 completed Not Available Not Available Not Available Senexon-S 8.6 mg-50 mg tablet 12/22 completed Not Available Not Available Not Available tranexami c acid 650 mg tablet TAKE 2 TABLETS BY MOUTH THREE TIMES DAILY X 5 DAYS 12/22 completed Not Available Not Available Not Available 28 mg iron-800 mcg tablet TAKE 1 TABLET BY MOUTH EVERY DAY active Not Available Not Available No t Available ID NOW COVID-19 Test Kit TEST DIRECTED TODAY 01/07 completed Not Available Not Available Not Available COVID-19 test specimen collectio n TEST DIRECTED 01/07 completed Not Available Not Available Not Available Vitals Date Recorded Body height Provider Name an d Address Organization Details Last Updated DateTime 02/23/2023 162.56 cm Shereen Salgado [facility] 02/23/2023 14:16:39 Date Recorded Body mass index (BMI) Body weight Provider Name and Address Organization Details Last Updated DateTime 02/23/2023 25.3 kg/m2 26453.52 g Shereen Salgado [facility] 02/23/2023 14:16:48 Date Recorded Body temperature Provider Name a nd Address Organization Details Last Updated DateTime 02/23/2023 97.4 [degF] Shereen Salgado [facility] 02/23/2023 14:16:52 Date Recorded Body height Provider Name an d Address Organization Details Last Updated DateTime 03/16/2023 162.56 cm Nisha Flowers [facility] 03/16/2023 14:02:16 Date Recorded Body mass index (BMI) Body weight Provider Name and Address Organization Details Last Updated DateTime 03/16/2023 25.5 kg/m2 06213.54 g Nisha Flowers [facility] IV 03/16/2023 14:12:40 Date Recorded Body temperature Provider Name a nd Address Organization Details Last Updated DateTime 03/16/2023 97.2 [degF] Nisha [facility] 03/16/2023 14:12:47 Date Recorded Body height Provider Name an d Address Organization Details Last Updated DateTime 09/23/2023 162.56 cm Jose Cunha [facility] IV 09/23/2023 15:00:29 Date Recorded Body mass index (BMI) Body weight Provider Name and Address Organization Details Last Updated DateTime 09/23/2023 25.1 kg/m2 32453.49 g Jose Cunha [place] [facility] 09/23/2023 15:02:33 Date Recorded Body temperature Provider Name a nd Address Organization Details Last Updated DateTime 09/23/2023 97.6 [degF] Herminiomarisolisidro Cunha [place] [facility] 09/23/2023 15:02:41 Date Recorded Body height Provider Name an d Address Organization Details Last Updated DateTime 11/03/2023 162.56 cm Enedina Harrison [place] [facility] 11/03/2023 15:05:42 Date Recorded Body mass index (BMI) Body weight Provider Name and Address Organization Details Last Updated DateTime 11/03/2023 24.9 kg/m2 17584.18 g Enedina Harrison [place] [facility] 11/03/2023 15:25:20 Date Recorded Body temperature Provider Name a nd Address Organization Details Last Updated DateTime 11/03/2023 97.4 [degF] [facility] 11/03/2023 15:25:24 Date Recorded Body height Provider Name an d Address Organization Details Last Updated DateTime 12/23/2023 162.56 cm Kelley Sabrina [place] [facility] 12/23/2023 11:27:19 Date Recorded Body mass index (BMI) Body weight Provider Name and Address Organization Details Last Updated DateTime 12/23/2023 21.3 kg/m2 31846.45 g Kelley Diorrd [place] [facility] 12/23/2023 11:27:30 Date Recorded Systolic blood pressure Diastolic blood pressure Provider Name and Address Organization Details Last Updated DateTime 02/23/2023 100 mm[Hg] 62 mm[Hg] Shereen Damian [place] [facility] 02/23/2023 14:17:00 Date Recorded Systolic blood pressure Diastolic blood pressure Provider Name and Address Organization Details Last Updated DateTime 03/16/2023 102 mm[Hg] 58 mm[Hg] Nisha Lionel [place] [facility] 03/16/2023 14:12:33 Date Recorded Systolic blood pressure Diastolic blood pressure Provider Name and Address Organization Details Last Updated DateTime 09/23/2023 106 mm[Hg] 58 mm[Hg] Jose Cunha [facility] 09/23/2023 15:02:17 Date Recorded Systolic blood pressure Diastolic blood pressure Provider Name and Address Organization Details Last Updated DateTime 11/03/2023 110 mm[Hg] 68 mm[Hg] Enedina Harrison [facility] 11/03/2023 15:25:13 Date Recorded Systolic blood pressure Diastolic blood pressure Provider Name and Address Organization Details Last Updated DateTime 12/23/2023 96 mm[Hg] 42 mm[Hg] Kelley Sabrina [facility] 12/23/2023 11:37:17 Social History Question Answer Notes LastModified by Organizat ion Details LastModified Time Tobacco Smoking Status Current Every Day Smoker Maria Guadalupe echols, [place] [facility] 01/07/2021 15:20:09 What Is Your Level Of Alcohol Consumption? None Information not available 01/07/2021 If You Are , What Was Your Level Of Alcohol Consumption Prior To ? None Information not available 05/07/2022 Are You Blind Or Do You Have Difficulty Seeing? No Information not available 11/19/2021 Are You Currently Employed? No [email or web address] Information not available 02/23/2023 Are You Deaf Or Do You Have Serious Difficulty Hearing? No Information not available 11/19/2021 What Type Of Diet Are You Following? REGULAR Information not available 05/07/2022 Which Illicit Or Recreational Drugs Have You Used? Marijuana, Prior Information not available 01/07/2021 What Is The Highest Grade Or Level Of School You Have Completed Or The Highest Degree You Have Received? [id number] Information not available 02/23/2023 How Many Children Do You Have? 2 Information not available 09/23/2022 What Is Your Relationship Status? Single Information not available 01/07/2021 Are You Sexually Active? Yes Information not available 01/07/2021 How Much Tobacco Do You Smoke? 1 PPW Information not available 01/07/2021 Do You Use Any Illicit Or Recreational Drugs? Yes Information not available 01/07/2021 Have You Used IV Drugs? No Information not available 04/30/2022 Do You Or Have You Ever Used Any Other Forms Of Tobacco Or Nicotine? No Information not available 04/30/2022 Sex: Female Functional Status Question Answer Note LastModified by Organization D etails LastModified Time What is your exercise level? None Information not available 01/07/2021 Mental Status None recorded. Family History Relationship Description Onset Age of this Age Resolved Age Notes LastModified by Organization Details LastModified Time Mother Family history of malignant neoplasm of endometrium rreinheimer Not available 15:19:07 Medical History Condition Response Other Cancer N High Blood Pressure N Colon Cancer N Cytomegalovirus N Hyperthyroidism N MRSA N Blood Transfusion N Herpes (HSV) N Breast Cancer N Lung Cancer N Depression N Hypothyroidism N Incontinence N Panic Attacks N Neurological Disorder N Deep Vein Thrombosis N Anxiety Disorder N Autoimmune disease N Arthritis N Tuberculosis/Positive PPD N Shingles N Polycystic Ovarian Syndrome N Cervical Cancer N Hematuria N Chlamydia N Stroke N Varicosities N Seasonal allergies N Crohn's Disease N Alzheimer's/Dementia N COPD/Emphysema N HPV/Genital Warts N Endometriosis N IBS (Irritable Bowel Syndrome) N History of Abnormal Pap N High Cholesterol N Liver Disease N Kidney Infection N Fibromyalgia N Ulcer N Kidney Disease N HIV N Gallbladder disease N Sickle Cell Disease/Trait N Von Willebrand disease N ADD/ADHD N Eating Disorder N Anemia N Diabetes Mellitus (non-insulin dependent ) N Multiple Sclerosis N Ovarian Problems N Gonorrhea N Frequent Urinary Tract infections N Osteopenia N Headaches/migraines N GERD (reflux) N Ovarian Cancer N Diabetes (insulin dependent) N Seizures/Epilepsy N Fibroids N Asthma N Heart Attack N Lupus N Endometrial Cancer N Rubella N Blood Clotting Disorder N Bipolar Disorder N Diabetes Mellitus (during ) N Ulcerative Colitis N Hepatitis N Heart Disease N Pulmonary Embolism N RPR N Chicken Pox N Osteoporosis N Gynecological History Statement/Question Response Flow Moderate Date of LMP 11/16/2023 Date of Last Pap Smear 09/23/2022 Duration of Flow (days) 7 Current Control Method None Age at Menarche 12 Obstetrics History GPAL:G 2 P 2 0 0 2 Type Value Full Term 2 Living 2 Total 2 Past Encounters Encounter ID Performer Location Encounter Start Date Encounter Closed Date Diagnosis/Indication Diagnosis SNOMED-CT Code Diagnosis ICD10 Code Diagnosis Note [id number] [facility] [address] [place] [address] 01/07/2021 15:10:04 01/07/2021 15:35:31 state 26257056 Z39.[address], formula feeding Acute vaginitis 19014147 N76.0 Reviewed vulvar care guidelines and safe sex practices [id number] Meena Claire is, [facility] [address] [place] [address] 11/19/2021 11:29:11 11/19/2021 15:59:41 Missed period 50990854 N92.5 LMP 09/23/21US 11/19 [id number] interval preg last baby 11/22/20 uncomplica dima Nausea 027382292 R11.0 [id number] Nirali Sellers MD [facility] [address] [place] [address] 01/06/2022 15:30:40 01/06/2022 22:13:42 Routine care 883464757 Z34.01 Z34.81 O09.511 O09.521 new ob labs drawn today. Discussed NIPT. anatomy scan next screening 2437 81174 Z36.0 Carrier de tection, molecular genetics 0563466 Z14.8 [id number] Meena TommyNeville is, [facility] [address] [place] [address] 02/12/2022 12:08:07 02/18/2022 14:58:39 [id number] Sofia Hamm, [facility] [address] [place] [address] 03/18/2022 10:15:56 03/18/2022 11:26:29 Gestation period, 25 weeks 43590149 Z3A.25 Routine an tenatal care 308707435 Z34.92 Screening for disorder 206656939 Z11.3 N89.9 Headache 09919102 R51.9 External hemorrhoids 239 33679 K62.5 Malaise and fatigue 2717 74859 R53.83 [id number] LURDES ANNA DO [address] [address] 04/08/2022 14:33:00 04/08/2022 16:18:12 Routine care 665759443 Z34.03 Z34.83 O09.513 O09.523 Gestation period, 28 weeks 83096760 Z3A.28 Increased nausea and vomiting 31647829 R11.2 Low back p ain in 2706907069 106 O26.694 [id number] Hamida Morales CNM [address] [address] 04/23/2022 13:11:59 04/23/2022 22:21:22 Normal in multigravida 3910931272 92280 Z34.83 Gestation period, 30 weeks 06062333 Z3A.30 labor precaution s given. FM counts discussed. F/u in L&D if experienci ng decreased movement, leaking fluid, 4 or more contractio ns in 1 hour not relieved by rest and fluids, or regular uterine contractio ns increasing in frequency and/or intensity. Reduced fe jani movement 978781382 O36.8199 Modified BPP - NST w/PADMINI [id number] Hamida Morales CNM [address] [address] 04/30/2022 17:19:10 05/01/2022 14:25:25 Supervision of high risk for multigravida done 3228528651 9109 O09.93 Vaginal irritation 55144 6004 N89.8 Gestation period, 31 weeks 42565465 Z3A.31 labor precaution s given. FM counts discussed. F/u in L&D if experienci ng decreased movement, leaking fluid, 4 or more contractio ns in 1 hour not relieved by rest and fluids, or regular uterine contractio ns increasing in frequency and/or intensity. [id number] HUA BLOOM MD [address] [address] 05/07/2022 15:09:36 05/08/2022 14:04:28 Gestation period, 32 weeks 2846276 Z3A.32 High risk 4720 0007 O09.73 Abnormalit y of heart 143917505 O36.8999 [id number] Nirali Sellers MD [facility] [address] [place] [address] 05/12/2022 11:02:08 05/12/2022 19:35:16 Normal in multigravida 2171078035 95270 Z34.83 discussed delivery plans. She has appt tomorrow with peds cardiology - most likely will deliver at [facility] due to avail of more advanced services for baby Gestation period, 32 weeks [id number] Z3A.32 [id number] MAHNAZ HENNESSY [address] [address] 09/23/2022 14:28:49 09/24/2022 12:59:52 Gynecologic examination [id number] Z01.419 Screening for malignant neoplasm of cervix [id number] Z12.4 Contracept ion education 062560987 Z30.09 Contracept lee counseling : Discussed options including OCPs, NuvaRing, Nexplanon, hormonal and copper IUDs. Discussed risks, efficacy, noncontrac eptive benefits, and side effects of each option, including risk of VTE with hormonal contracept ion and uterine perforatio n, expulsion, infection with IUD. Recieved first shot of Depo in August. Pt has had brown discharge since then. Edcuation given. Increased frequency of urination 810719199 R35.0 Constipation 90571132 K5 9.00 Pt reports pelvic pain with constipati on. Education given. [id number] SHELDON QUINN [address] [address] 01/25/2023 15:40:40 01/26/2023 10:37:11 Abnormal uterine bleeding [id number] 9100 N93.9 Pt was on depo and just got off of it. would like to restart. management 278 524877 Z39.1 Dysuria 12169434 R30.0 Initiation of depot contraception done [id number] 87841 Z30.013 Pt comes in for Initiation of Depo Contracept ion -- Pt educated on risks vs benefits of use. Reviewed ACHES symptoms and blackbox warning.-- Pt states she is not TTC within the next year or two. Discussed the delay in return to fertility with DMPA, pt voiced understand ing.-- Discussed weight gain and feeling hungry with DMPA. Discussed being mindful of diet when starting DMPA.-- Discussed importance of using a back up method for the first week after initial injection. -- Pt encouraged to consider Ca+ and Vit D supplement ation with use.-- Discussed dosing schedule: Depo works best if you get a new shot every 13 weeks (every 3 months). A repeat injection can be given up to 15 weeks from the last injection. Discussed condom use or abstinence if dosing schedule is interrupte d.--Discus sed that contracept ion will not protect against STI's. Encourged Condom use. Discussed the various types of Infections and STIs, related symptoms and the potential consequenc es (including effects on fertility) of STI. Reviewed ways to limit exposure and-- Rx sent to pharmacy. Pt will RTC with medication for administra tion. Pt advised that she does not need an appointmen t to receive her Depo injections . Contracept ion care education 393803863 Z30.09 Contracept lee counseling : Discussed options including OCPs, NuvaRing, Nexplanon, hormonal and copper IUDs. Discussed risks, efficacy, noncontrac eptive benefits, and side effects of each option, including risk of VTE with hormonal contracept ion and uterine perforatio n, expulsion, infection with IUD. [id number] SAPNA RODAS [facility] [address] [place] [address] 02/23/2023 14:08:03 02/24/2023 11:22:13 Vaginal discharge 318162328 N89.8 N76.0 Pt educated on exam findings, and discussed POC. Vaginal cx collected and sent. Rx for Flagyl and Diflucan sent. Pt advised to avoid fragrant soaps/laun dry detergents , use of baking soda soaks, having partner change soaps, etc. Further POC pending lab result review. Abnormal u terine bleeding 3229106819 9100 N93.9 Pt comes in with AUB. --Discusse d the various causes of abnormal uterine bleeding. Including: polyps, fibroids, hyperplasi a, atypia, anovulatio n, etc.--Revi ewed the typical evaluation with labs and TVUS.--Dis cussed the possibilit y of endometria l biopsy. Biopsy procedure reviewed in detail.--R ecommended NSAID to help with cramping/b leeding.-- Briefly discussed the options available for treatment (depending on the results of evaluation ) such as hormonal treatment (OCPs, progestins ), Mirena, endometria l ablation, and surgery.-- TVUS reviewed from ER on 02/20 and discussed with patient that US was normal. Contracept ion: None POCSure Richard elias forty five minutes spent with patient in consultati on (>50% face-to-fa ce). Patient labs and notes were reviewed. Patient questions were answered. Additional patient care was coordinate d. Discharge from nipple 54 386711 N64.52 -Discussed with patient hormones, or sexual arousal can be normal causes for nipple discharge. Abnormal causes could be from tumors, infection or rarely, breast cancer.-Di scussed with patient that physiologi c nipple discharge is usually bilateral and multiducta l and occurs with breast manipulati on. Conversely , the risk of cancer is higher when the discharge is spontaneou s, bloody, unilateral , uniductal, associated with a breast mass, and/or occurs in a woman over 40 years of age.-Discu ssed idiopathic galactorrh ea, and it may just mean that your breast tissue is particular ly sensitive to the milk-produ cing hormone prolactin in your blood. POC:Prolac tin level [id number] MARY LOU QUINN-BC [facility] [address] [place] [address] 03/16/2023 13:59:55 03/17/2023 13:24:56 Menorrhagia 692717720 N92.0 [id number] DARNELL TRAMMELL NP [facility] [address] [place] [address] 09/23/2023 14:41:38 09/23/2023 17:14:01 Increased frequency of urination 922799709 R35.0 Patient reports frequency and bleeding. Patient unsure if bleeding is from the vagina or urethra as she is have irritation at meatus. Menorrhagia 312012244 N9 2.0 Patient electing to self collect. Given instructio ns by SECURITY SHIFT SUPERVISOR to insert past [facility] herminio and rotate for 30s. Patient denies questions and verbalizes understand ing. Wishes to proceed with self collection . Vulvar care guidelines and safe sex practices reviewed. TX pending results. Anemia 027303922 D64.9 [id number] DARNELL TRAMMELL NP [facility] [address] [place] [address] 11/03/2023 14:38:48 11/05/2023 13:41:16 Menorrhagia 371403697 N92.0 Discussed causes of abnormal uterine bleeding, including structural (polyps, fibroids), hormonal including anovulatio n, hyperplasi a, and rarely cancer. Reviewed evaluation with pelvic US and endometria l biopsy. Briefly discussed options available for treatment depending on the results of evaluation including hormonal options (OCPs, progestins , Mirena), endometria l ablation, and other surgery.TV US today was WNL. reiterated NSAID treatment 72 hours before Menses. Disorder o f menstruation 944190794 N92.6 Urinary symptoms 9659340 08 R39.9 Patient with reported frequent UTI. Patient with discomfort today.POCD ipstick and culture Venereal d isease screening 846890690 Z11.3 Discussed the various types of STDs, related symptoms and the potential consequenc es (including effects on fertility) of STD infections . Reviewed ways to limit exposure and prevention techniques . Recurrent urinary tract infection 293282368 N39.0 Family his tory of malignant neoplasm of genital structure 846207739 Z80.49 discussed MYRisk and talking with mother that has a history of unknown type of reporducti ve cancer. [id number] SAPNA RODAS [facility] [address] [place] [address] 12/23/2023 11:09:13 12/23/2023 14:19:37 test positive 399640255 Z32.01 Miscarriage 34475675 O03 .9 --TVUS today: homogeneou s uterus and endo WNL, no RPOC noted. Bilateral ovaries WNL, No FF seen.-- Discussed the common nature of SAB as up to 20% of pregnancie s, the likely genetic cause, and the lack of fault or blame within these circumstan alyson. Discussed the fact that most likely this event will minimally impact future fertility. -- Will collect CBC, and Quant today.?Plan of Care-- Return Precaution s Given: Increased Bleeding- Soaking more than 1 pad in 1 hour for 2 consecutiv e hours, passing more than two lemon sized blood clots in 1 hour, fever/chil ls, severe pain, or other worrisome symptoms.- - Serum hCG testing weekly until returning to normal. Greater than thirty minutes spent with patient in consultati on (>50% face-to-fa ce). Patient labs and notes were reviewed. Patient questions were answered. Additional patient care was coordinate d. Health Concerns Section Related Observation LastModified by Organization Detai ls LastModified Time None Recorded Concern Status LastModified by Organization Details LastModified Time None Recorded Advance Directives Directive None Recorded Payers Encounter Date Sequence Insurance Name Policy Number Policy Cantu Covered Member ID Cantu Member ID Guarantor Name 02/23/2023 1 [employer] [place] [place] ON [place] AFTER 2020 (MEDICAID REPLACEMENT - HMO) Davida Juan [id number] Davida Juan 03/16/2023 1 [employer] [place] [place]ICA[place] REPLACEMENT - HMO) Daviad Juan [id number] Davida Juan 09/23/2023 1 [employer] [place]MED[place]PLACEMENT - HMO) Davida Juan [id number] Davida Juan 11/03/2023 1 [employer] [place]MED[place]PLAC[place] - HMO) Davida Juan [id number] Davida Juan 12/23/2023 1 [employer] REPLAC[place] - HMO) Davida Juan [id number] Davida Juan Notes Date Note Type Note Provider Name and Address Organization Details Recorded Time 02/23/2023 text/html Davida is here because her periods has been irregular. She said she has been bleeding in between periods. Patient got off depo in October, came back in January and was given rx to get back on Depo. Patient has not gotten shot because she feels depo messed up her period. Patient states she had BV in January and did not complete all medication. Patient was in the ER 02/20 for the abnormal bleeding and had US completed with lab work. Patient states everything was normal. Pt states she has vaginal discharge,irritatio n, and odor. Patient is also complaining of nipple discharge since she stopped a couple months ago. She said her boobs are leaking yellow bilaterally. States that it has to be expressed and denies any bloody discharge. ELLEN PROCTOR, WATER PROOFER [address] [facility] [address], [place], [address], [employer] IV 02/23/2023 15:40:57 03/16/2023 text/html Davida present s today for heavy bleeding. Pt states its not normal for her to be bleeding that much. She has been bleeding off and on 3x since Feb. She states it start off pink then bright red and then she pass clots. She is currently bleeding now. MARY LOU QUINN-BC [address] [facility] [address], [place], [address], [employer] IV 03/16/2023 14:29:55 09/23/2023 text/html Lower Urinary Tr act Symptoms (LUTS)Reported bypatient.Quality:d ull; stabbing Onset/Timing:< 1 week Davida presents today for heavy bleeding. Pt states its not normal for her to be bleeding that much. She has been bleeding off and on 3x since Feb. She states it start off pink then bright red and then she pass clots. She is currently bleeding now. She woke up at 11am today and has filled 3-4 pads almost completely. She is experiencing bleeding with urination, and also was bleeding in the shower. DARNELL TRAMMELL NP [address] [facility], [place], [address], [employer] IV 09/23/2023 16:16:47 11/03/2023 text/html Davida in offi ce for follow up visit and USUS done today in office pt c/o of painful urination and urinary frequency pt would like std testing DARNELL TRAMMELL NP [address] [facility], [place], [address], [facility] [employer] IV 11/04/2023 10:57:05 12/23/2023 text/html Patient went to the hospital 12/13/23. She was told at that time that she was . The ER visit was unrelated per patient and was just there because she passed something very unusual. Patient states she started bleeding several days ago about 12/17/23 and has had a lot of bleeding cramping and clots since. 12/17/23 she was back in ER where they told her she was possibly having a miscarriage. Patient states her bleeding is not as much yesterday and today. SAPNA RODAS [address] [facility], [place], [address], [facility] [employer] IV 12/23/2023 13:58:49 OBGyn Episode Ob Episode Information Episode Created Date Number of Fetuses Patient Bloodtype Patient rh Status Prepregnancy Weight lbs Domestic Partner Domestic Partner Phone Father Name Police Captain Status 01/07/20 22 1 O Positive CLOSED Fetus Data First Name Last Name Admitted to NICU Weight (g) Sex Living Outcome Pediatric Complications Fetus ID Race Codes Race Delivery Type [id number] Problems Problem Notes large foramen ovale an eurysm on US arrhythmia - Ped cardiology referral Problem Name Start Date End Date Resolution Snomed Code Not e heart disorder [id number] Headache 93840392 Fatigue 89637932 Hemorrhoids 24353340 Gordon Calculation Initial Gordon Date Initial Exam Date Initial Exam Provider Initial Ultrasound Date Last Menstrual Period Date Ultra Sound Weeks Gestation 06/30/2022 11/19/2021 [facility] 11/19/2021 09/23/2021 8 Eighteen To Twenty Week Gordon Update Ultra Sound Date Fundal Height At Umbil Quickening Date Ultra Sound Latest Weeks Gestation Final Gordon Confirmed By Final Gordon Confirmed Date Final Gordon Date Ultra Sound Latest Days Gestation 0 07/01/19 23 0 Pre- Flowsheet Flowsheet Date 01/06/2022 Brooks Score Blood Edema Fundus Height Fundus Units Glucose Ketones Leukocytes Nitrite Labor Signs Protein Cervic Dilation Cervic Effacement Cervic Station none none Type Weight in lbs Pre/Post Dialysis Refused Weight 149.129169361398 BP Diastolic BP Location Tested BP Systolic BP Type 62 134 Fetus Heart Rate Present A 150 Present Fetus Movement Comments 15 wks. Desires to have gene tic test done - will draw [place] panel. Also needs to do new OB labs - drawn today. Anatomy scan next Flowsheet Date 02/12/2022 Brooks Score Blood Edema Fundus Height Fundus Units Glucose Ketones Leukocytes Nitrite Labor Signs Protein Cervic Dilation Cervic Effacement Cervic Station none trace Type Weight in lbs Pre/Post Dialysis Refused Weight 158.505831687690 BP Diastolic BP Location Tested BP Systolic BP Type 66 110 Fetus Heart Rate Present Fetus Movement Comments Flowsheet Date 03/18/2022 Brooks Score Blood Edema Fundus Height Fundus Units Glucose Ketones Leukocytes Nitrite Labor Signs Protein Cervic Dilation Cervic Effacement Cervic Station 25 cm none neg Type Weight in lbs Pre/Post Dialysis Refused Weight 165.479663615342 BP Diastolic BP Location Tested BP Systolic BP Type 52 106 Fetus Heart Rate Present A 154 Fetus Movement A Yes Comments Medical Assembly in for visit today. Julio hurley complains of chest pains and shortness of breath, has saw PCP and has tesing/referral ordered. Headaches continued discussed hydration, small frequent meals, caffeine intake, tylenol PRN and magnesium supplements. Also notes hemorrhoids- discussed diet and otc recommendations. PTL/PIH precautions reviewed. Verbalizes understanding. Flowsheet Date 04/08/2022 Brooks Score Blood Edema Fundus Height Fundus Units Glucose Ketones Leukocytes Nitrite Labor Signs Protein Cervic Dilation Cervic Effacement Cervic Station none none neg Type Weight in lbs Pre/Post Dialysis Refused With clothes 169.388488821184 BP Diastolic BP Location Tested BP Systolic BP Type 60 L arm 100 sitting Fetus Heart Rate Present A 140 Fetus Movement Comments no ob complaints. 28 week la bs completed today. Flowsheet Date 04/23/2022 Brooks Score Blood Edema Fundus Height Fundus Units Glucose Ketones Leukocytes Nitrite Labor Signs Protein Cervic Dilation Cervic Effacement Cervic Station none none Type Weight in lbs Pre/Post Dialysis Refused With clothes 174.86420822968 BP Diastolic BP Location Tested BP Systolic BP Type 58 L arm 102 sitting Fetus Heart Rate Present A 155 Fetus Movement A Decreased Comments Only feels FM twice daily - NST reactive; PADMINI 14; persistent cardiac arrhythmia & Atriums mildly enlarged. EFW 98% 2107g. [facility] consult sent. Flowsheet Date 04/30/2022 Brooks Score Blood Edema Fundus Height Fundus Units Glucose Ketones Leukocytes Nitrite Labor Signs Protein Cervic Dilation Cervic Effacement Cervic Station none none Type Weight in lbs Pre/Post Dialysis Refused With clothes 174.16358723279 BP Diastolic BP Location Tested BP Systolic BP Type 52 108 Fetus Heart Rate Present A 146 Fetus Movement A Yes Comments Pt was referred to [facility] for c ardiac arrhythmia. Dr. Chary Peoples from [facility] spoke w/Dr Daly a few days ago regarding ultrasound findings. Davida's baby has a large foramen ovale aneurysm which can be a variant of normal, however this aneurysm is larger than normal and can cause irregular heart beat as noted w/US on 04/23. With [facility], the heart rhythm was normal for them. This patient needs two things.1. Need to decide where this patient is going to delivery. She told them at [facility] she was considering [facility] or [facility].2. Refer her to Pediatric Cardiology at the place of her planned delivery.However, Davida noted at her visit that they told her baby's heart was normal. There is no report from [facility] available at the time of this visit. Additionally, Ander was seen at [place] by cardiology and has to wear halter monitor for 2 weeks (?). I asked Davida to sign a records request so we can get cardiology report since her PCP sent the referral. She has a behavioral health case manager with her from [place] d/t her social situation. I am under the impression that Davida is not clearly understanding the current situation. I have asked her to make sure she brings any concerns to our attention immediately. Additionally, I encouraged her to make follow up appointments with MD to further discuss appropriate f/u and care delivery.Note sent to obtain [facility] consult notes. Flowsheet Date 05/07/2022 Brooks Score Blood Edema Fundus Height Fundus Units Glucose Ketones Leukocytes Nitrite Labor Signs Protein Cervic Dilation Cervic Effacement Cervic Station 32 wks none Type Weight in lbs Pre/Post Dialysis Refused With clothes 177.176069100002 BP Diastolic BP Location Tested BP Systolic BP Type 62 L arm 110 sitting Fetus Heart Rate Present A Present Fetus Movement A Yes Comments Ped cardiology appointment s cheduled for 05/13. Flowsheet Date 05/12/2022 Brooks Score Blood Edema Fundus Height Fundus Units Glucose Ketones Leukocytes Nitrite Labor Signs Protein Cervic Dilation Cervic Effacement Cervic Station none 1+ Type Weight in lbs Pre/Post Dialysis Refused Weight 174.98370860059 BP Diastolic BP Location Tested BP Systolic BP Type 62 112 Fetus Heart Rate Present Fetus Movement Comments Menstrual History Last Menstrual Date Menses Monthly On Bcp Conception Prior Menses Frequency Hcg Plus Date Menarche Onset Age 0809/23/2021 true false 2 Genetic Screening And Infection History Question Response Note Patient's Age Will Be 35 Years Or Older At Estim ated Date of Delivery false Recurrent Loss, Or A Stillbirth false Delivery Information Delivery Date Delivery Type Labor Anesthesia Weeks Gestation Incision Type Labor Labor Length Hrs Delivered By Post Complications Tubal Sterilization Discharge Date Comments Discharge Information Feeding Method Contraceptive Method Maternal HG B and HCT Levels Ob Episode Information Episode Created Date Number of Fetuses Patient Bloodtype Patient rh Status Prepregnancy Weight lbs Domestic Partner Domestic Partner Phone Father Name Police Captain Status 02/23/19 24 1 CLOSED Fetus Data First Name Last Name Admitted to NICU Weight (g) Sex Living Outcome Pediatric Complications Fetus ID Race Codes Race Delivery Type F [id number] Gordon Calculation Initial Gordon Date Initial Exam Date Initial Exam Provider Initial Ultrasound Date Last Menstrual Period Date Ultra Sound Weeks Gestation 0 Eighteen To Twenty Week Gordon Update Ultra Sound Date Fundal Height At Umbil Quickening Date Ultra Sound Latest Weeks Gestation Final Gordon Confirmed By Final Gordon Confirmed Date Final Gordon Date Ultra Sound Latest Days Gestation 0 0 Menstrual History Last Menstrual Date Menses Monthly On Bcp Conception Prior Menses Frequency Hcg Plus Date Menarche Onset Age Delivery Information Delivery Date Delivery Type Labor Anesthesia Weeks Gestation Incision Type Labor Labor Length Hrs Delivered By Post Complications Tubal Sterilization Discharge Date Comments 1 Regional- idural Discharge Information Feeding Method Contraceptive Method Maternal HG B and HCT Levels Ob Episode Information Episode Created Date Number of Fetuses Patient Bloodtype Patient rh Status Prepregnancy Weight lbs Domestic Partner Domestic Partner Phone Father Name Police Captain Status 02/23/19 24 1 CLOSED Fetus Data First Name Last Name Admitted to NICU Weight (g) Sex Living Outcome Pediatric Complications Fetus ID Race Codes Race Delivery Type F Full Term [id number] Gordon Calculation Initial Gordon Date Initial Exam Date Initial Exam Provider Initial Ultrasound Date Last Menstrual Period Date Ultra Sound Weeks Gestation 0 Eighteen To Twenty Week Gordon Update Ultra Sound Date Fundal Height At Umbil Quickening Date Ultra Sound Latest Weeks Gestation Final Gordon Confirmed By Final Gordon Confirmed Date Final Gordon Date Ultra Sound Latest Days Gestation 0 0 Menstrual History Last Menstrual Date Menses Monthly On Bcp Conception Prior Menses Frequency Hcg Plus Date Menarche Onset Age Delivery Information Delivery Date Delivery Type Labor Anesthesia Weeks Gestation Incision Type Labor Labor Length Hrs Delivered By Post Complications Tubal Sterilization Discharge Date Comments 3 Regional-Ep idural Discharge Information Feeding Method Contraceptive Method Maternal HG B and HCT Levels
--- OUTSIDE RECORDS SUMMARY | 2024-03-10 15:13 | XMS_ITS | Encounter Summary ---
Author Organization [facility] Address [address] [place] [address]. [place] [address] [place] [address] Care Team Providers Care Cable Swager Name Role Phone New Referring, Provider Primary Care Provider Un available Encounter Details Date Type Department Care Team (Late st Contact Info) Description 12/11/2020 Hospital Follow-up Call [facility] [place] [address] Kelly Sanchez, RN Social History Tobacco Use Types Packs/Day Years Used Date Smoking Tobacco: Every Day Cigarettes Last attempted to quit: 07/31/2020 Smokeless Tobacco: Never Alcohol Use Standard Drinks/Week Comments Never 0 [...] on file Sexual Orientation Not on file COVID-19 Exposure Response Date Recorded In the last month, have you been in contact with someone who was confirmed or suspected to have Coronavirus / COVID-19? No / Unsure 11/25/2020 5:24 AM CDT documented as of this encounter Functional Status * RETIRED Are you deaf or do you have serious difficulty hearing Answer Date of Assessment Author Status No 11/25/2020 5:46 AM CDT Activ e * RETIRED Are you blind or do you have serious difficulty seeing, even when wearing glasses? Answer Date of Assessment Author Status No 11/25/2020 5:46 AM CDT Activ e * Do you have serious difficulty walking or climbing stairs? Answer Date of Assessment Author Status No 11/25/2020 5:46 AM Krystal Ortez RN Active * Do you have difficulty dressing or bathing? Answer Date of Assessment Author Status No 11/25/2020 5:46 AM Krystal Ortez RN Active * Because of a physical, mental, or emotional condition, do you have difficulty doing errands alone such as visiting a doctor's office or shopping? Answer Date of Assessment Author Status No 11/25/2020 5:46 AM Krystal Ortez RN Active documented as of this encounter Mental Status * Because of a physical, mental, or emotional condition, do you have serious difficulty concentrating, remembering, or making decisions? Answer Entry Date Author Status No 11/25/2020 5:46 AM Krystal Ortez RN Active documented in this encounter Plan of Treatment Not on file documented as of this encounter Visit Diagnoses Not on filedocumented in this encounter Additional Health Concerns Infection Onset Date Last Indicated Resolved Time COVID-19 Rule Out 12/16/2021 12/16/2021 12/16/2021 12:56 PM MILLWRIGHT APPRENTICE COVID-19 Rule Out 01/05/2023 01/06/2023 01/06/2023 1:05 AM MILLWRIGHT APPRENTICE documented as of this encounter Care Teams Cable Swager Relationship Specialty Start Date End Date New Referring, Provider PCP - General UNKNOWN PHYSICIAN SPECIALTY 07/13/20 documented as of this encounter
--- OUTSIDE RECORDS SUMMARY | 2024-03-10 16:11 | XMS_ITS | Clinical Summary ---
Author Organization [facility] Address [address] [place] [id number] Care Team Providers Care Elderly Caregiver Name Role Phone Unavailable Primary Care Provider [...] patient's age to complete this topic Insurance [facility] MEDICAID
--- OUTSIDE RECORDS SUMMARY | 2024-03-10 16:11 | XMS_ITS | Referral Summary ---
Author Organization [facility] Address [address] [place] [id number] Care Team Providers Care Cook Vacuum Kettle Name Role Phone Zak Arauz MD Primary [...] # Disposition: Follow up task sent to [facility] scheduling pool. Desires discharge home today. Macrosomia [...] (05/14/2022): When she was seen in the [facility] there was concern for a dropped beats and a arrhythmia and she was referred to MFM. A arrhythmia was also heard in her primary OB office. She was scanned by [facility] (care everywhere) which did not note an [...] risk , antepa rtum 05/12/2022 Overview (06/23/2022): [facility] RN: Mariah Rodriguez - [phone] [x] Full [facility] Care; [x] Blue Team Referring Provider: [facility] - Hamida Morales [x] Dating Criteria: [...] Valentin [x] Method of feeding: breast [x] Die Cast Operator: [x] PP Depression Discussed: plan reviewed and [...] often do you attend chur ch or taoist services? More than 4 times per year 06/30/2022 Do you belong to any clubs o r organizations such as islam groups, unions, fraternal or athletic groups, or [...] place to sleep or slept in a half-way (including now)? 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 TRACHOMATIS AMPLIFICATION STAT 02/05/2023 10:21 AM SPONGE PRESS OPERATOR from Last 3 Months or Most Recently Relevant to Health Maintenance Results * N. gonorrhoeae/C. trachomatis Amplification Urine (02/05/2023 10:21 AM SPONGE PRESS OPERATOR) C. trachomatis Not Detected Not Detected DEBBIE ARREOLA Comment:Testing performed by : [facility], [address] [place] [address]., [id number] N. gonorrhoeae Not Detected Not Detected DEBBIE ARREOLA Comment: Interpretive Data This assay detects Chlamydia trachomatis and Neisseria gonorrhoeae by nucleic acid amplification testing (NAAT). This assay has been cleared by the [place] Food and Drug administration. The performance characteristics of this test have been verified by the [facility]. The performance characteristics of this test have not been evaluated in individuals less than 14 years of age. Current Interpretive Data last revised 2022. Testing performed by: [facility], [address] [place] [address]., [id number] Urine (None) 02/05/2023 10:2 1 AM SPONGE PRESS OPERATOR 02/05/2023 10:30 AM SPONGE PRESS OPERATOR us Ana Paula [facility] MICROBIOLOGY - GENERAL ORDER RANDY Final Result DEBBIE ARREOLA [address] [facility] [place] [address] from Last 3 Months or Most Recently Relevant to Health Maintenance Insurance [employer] BETTER [facility] A[employer] BETTER [facility] A[employer] BETTER [facility] Advance Directives For more information, please contact: [phone] * Full Code (Latest Code Status on File) Date Activated Date Inactivated Comments 06/30/2022 12:39 AM 07/01/2022 8:58 PM * Full Code Date Activated Date Inactivated Comments 06/28/2022 9:29 PM 06/30/2022 12:39 AM Full CPR i n case of cardiopulmonary arrest Care Teams Cook Vacuum Kettle Relationship Specialty Start Date End Date Zak Arauz MD [address] [place] [address] PCP - General Internal Medicine 03/16/22
--- OUTSIDE RECORDS SUMMARY | 2024-03-10 16:11 | XMS_ITS | Clinical Summary ---
Author Organization [facility] at [facility] Office Building Address [address] [place] [phone] Care Team Providers Care Roll Table Operator Name Role Phone Zak Arauz MD Primary [...] # Disposition: Follow up task sent to [facility] scheduling pool. Desires discharge home today. [...] (05/14/2022): When she was seen in the [facility] there was concern for a dropped beats and a arrhythmia and she was referred to MFM. A arrhythmia was also heard in her primary OB office. She was scanned by [facility] (care everywhere) which did not note [...] risk , antepa rtum 05/12/2022 Overview (06/23/2022): [facility] RN: Mariah Rodriguez - [phone] [x] Full [facility] Care; [x] Blue Team Referring Provider: [facility] - Hamida Morales [x] Dating Criteria: [...] Valentin [x] Method of feeding: breast [x] Health And Safety Coordinator: [x] PP Depression Discussed: plan reviewed and [...] often do you attend chur ch or gnosticism services? More than 4 times per year [...] place to sleep or slept in a halfway (including now)? 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 TRACHOMATIS AMPLIFICATION STAT 02/05/2023 10:21 AM CARE CLINICIAN from Last 3 Months or Most Recently Relevant to Health Maintenance Results * N. gonorrhoeae/C. trachomatis Amplification Urine (02/05/2023 10:21 AM CARE CLINICIAN) C. trachomatis Not Detected Not Detected DEBBIE Comment:Testing performed by : [facility], [address] [place] [address]., [id number] N. gonorrhoeae Not Detected Not Detected DEBBIE Comment: Interpretive Data This assay detects Chlamydia trachomatis and Neisseria gonorrhoeae by nucleic acid amplification testing (NAAT). This assay has been cleared by the [place] Food and Drug administration. The performance characteristics of this test have been verified by the [facility]. The performance characteristics of this test have not been evaluated in individuals less than 14 years of age. Current Interpretive Data last revised 2022. Testing performed by: [facility], [address] [place] [address]., [id number] Urine (None) 02/05/2023 10:2 1 AM CARE CLINICIAN 02/05/2023 10:30 AM CARE CLINICIAN us Ana Paula [facility] MICROBIOLOGY - GENERAL ORDER RANDY Final Result DEBBIE ARREOLA [address] [facility] [place] [address] from Last 3 Months or Most Recently Relevant to Health Maintenance Insurance AET[employer] BETTER [facility] [place] AETNA BETTER [facility] AETNA BETTER [facility] Advance Directives For more information, please contact: [phone] * Full Code (Latest Code Status on File) Date Activated Date Inactivated Comments 06/30/2022 12:39 AM 07/01/2022 8:58 PM * Full Code Date Activated Date Inactivated Comments 06/28/2022 9:29 PM 06/30/2022 12:39 AM Full CPR in case of cardiopulmonary arrest Care Teams Roll Table Operator Relationship Specialty Start Date End Date Zak Arauz MD [address] [place] [id number] PCP - General Internal Medicine 03/16/22
--- OUTSIDE RECORDS SUMMARY | 2024-03-10 16:12 | XMS_ITS | Referral Summary ---
Author Organization [facility] Address [address] [place] [address] Care Team Providers Care Radio Aerial Installer Name Role Phone Unavailable Primary Care Provider Unavailabl e Source Comments [facility],non-owned Affiliates and Associated Physician Practices is amultiple site organization consisting of ambulatory clinics and hospital sitesin [place], [place], [place] and [place]. This disclosure is being madepursuant to the Care Everywhere program and may not contain all information available regarding this patient. Last updated 17.[facility] Allergies No known active allergies Social History [...]
--- OUTSIDE RECORDS SUMMARY | 2024-03-10 16:12 | XMS_ITS | Clinical Summary ---
Author Organization [facility] Address [address] [place] [address] Care Team Providers Care Library Circulation Clerk Name Role Phone Unavailable Primary Care Provider Unavailabl e Source Comments [facility] [employer],non-owned Affiliates and Associated Physician Practices is amultiple site organization consisting of ambulatory clinics and hospital sitesin [place], [place], [place] and [place]. This disclosure is being madepursuant to the Care Everywhere program and may not contain all information available regarding this patient. Last updated 17.[facility] Allergies No known active allergies Social History [...]
--- OUTSIDE RECORDS SUMMARY | 2024-03-10 16:12 | XMS_ITS | Encounter Summary ---
Author Organization [facility] Address [address] [place] [address]. [place] [address] [place] [address] Care Team Providers Care Manufacturing Engineering Technician Name Role Phone New Referring, Provider Primary Care Provider Un available Encounter Details Date Type Department Care Team (Late st Contact Info) Description 12/11/2020 Hospital Follow-up Call [facility] [place] [address] Kelly Sanchez, RN Social History Tobacco Use [...] Rule Out 12/16/2021 12/16/2021 12/16/2021 12:56 PM BAND SAWING MACHINE OPERATOR COVID-19 Rule Out 01/05/2023 01/06/2023 01/06/2023 1:05 AM BAND SAWING MACHINE OPERATOR documented as of this encounter Care Teams Manufacturing Engineering Technician Relationship Specialty Start Date End Date New Referring, Provider PCP - General UNKNOWN PHYSICIAN SPECIALTY 07/13/20 documented as of this encounter
--- OUTSIDE RECORDS SUMMARY | 2024-03-10 16:12 | XMS_ITS | Clinical Summary ---
Author Organization [facility] Address [address] [place] [address]. [place], [place] [address] [place] [id number] Care Team Providers Care Manager Applied Name Role Phone New Referring, Provider Primary [...] Diagnosed Date ([facility]) 11/25/2020 Family History Medical History Relation Comments [...] Comments Blood Pressure 110/52 02/08/2023 7:00 AM CERTIFIED NOVELL ADMINISTRATOR Pulse 87 02/08/2023 7:00 AM CERTIFIED NOVELL ADMINISTRATOR Temperature 36.7 ??C (98.1 ??F) 02/08/2023 2:54 AM CS T Respiratory Rate 24 02/08/2023 7:00 AM CERTIFIED NOVELL ADMINISTRATOR Oxygen Saturation 100% 02/08/2023 7:00 AM CERTIFIED NOVELL ADMINISTRATOR Inhaled Oxygen Concentration - - Weight 67.1 kg (148 lb) 02/08/2023 2:54 AM CERTIFIED NOVELL ADMINISTRATOR Height 162.6 cm (5' 4 ) 02/08/2023 2:54 AM CERTIFIED NOVELL ADMINISTRATOR Body Mass Index 25.4 02/08/2023 2:54 AM CERTIFIED NOVELL ADMINISTRATOR Plan of Treatment Health Maintenance Due Date [...] 5:03 AM 11/28/2020 7:41 PM Care Teams Manager Applied Relationship Specialty Start Date End Date New Referring, Provider PCP - General UNKNOWN PHYSICIAN SPECIALTY 07/13/20
--- OUTSIDE RECORDS SUMMARY | 2024-03-10 16:12 | XMS_ITS | Patient Health Summary ---
Author Organization [facility] Address [address] [place] [address] Care Team Providers Care Lands Resource Manager Name Role Phone Unavailable Primary Care Provider Unavailabl e Note from [facility],non-owned Affiliates and Associated Physician Practices is amultiple site organization consisting of ambulatory clinics and hospital sitesin [place], [place], [place]. This disclosure is being madepursuant to the Care Everywhere program and may not contain all information available regarding this patient. Last updated 17.[facility] Allergies No known active allergies Social History [...] (Bezet) 457 ms [facility] MUSE Calculated P [place] 82 degrees [facility] MUSE Calculated R [place] 99 degrees [facility] MUSE Calculated T [place] 46 degrees [facility] M[facility] Interpretation EKG NORMAL SINUS RHYTHM RIGHTWARD AXIS BORDERLINE ECG NO PREVIOUS ECGS AVAILABLE Confirmed by DO PATEL STEPHANIE ([id number]) on 10/09/2022 1:41:10 PM SM MUSE 10/09/2022 12:3 9 AM CDT 10/09/2022 1:41 PM CDT Grant Cedillo DO ECG ORDERABLES [facility] * (ABNORMAL) URINALYSIS REFLEX TO MICROSCOPIC NO CULTURE (10/09/2022 12:36 AM CDT) Color UA Yellow Straw, Yellow 10/09/2022 12:43 AM CDT [facility] Clarity UA Clear Clear 10/09/2022 12:43 AM CDT [facility] Glucose UA Negative Negative 10/09/2022 12:43 AM CDT [facility] Bilirubin UA Negative Negative 10/09/2022 12:43 AM CDT [facility] Ketone UA Negative Negative 10/09/2022 12:43 AM CDT [facility] Specific [place] UA 1.017 1.005 - 1.030 10/09/2022 12:43 AM CDT [facility] Blood UA 2+(A) Negative 10/09/2022 12:43 AM CDT [facility] pH UA 8.0 5.0 - 8.0 pH 10/09/2022 12:43 AM CDT [facility] Protein UA Negative Negative 10/09/2022 12:43 AM CDT [facility] Urobilinogen UA Negative Negative mg/dL 10/09/2022 12:43 AM CDT [facility] Nitrite UA Negative Negative 10/09/2022 12:43 AM CDT [facility] Leukocyte UA Negative Negative 10/09/2022 12:43 AM CDT [facility] Urine Microscopy Urine microscopy to follow 10/09/2022 12:43 AM CDT [facility] Urine URINE SPECIMEN OBTAINED BY CLEAN CATCH PROCEDURE / Unknown Collection / Unknown 10/09/2022 12:36 AM CDT 10/09/2022 12:38 AM CDT Narrative [facility] - 10/09/2022 12:43 AM CDT Grant Cedillo LAB - URINALYSI S ORDERABLES Performing Organization Address City/[facility]/ZIP Co de Phone Number [facility] [address] [place] [phone] * URINE MICROSCOPIC ONLY (10/09/2022 12:36 AM CDT) RBC UA 3-5 0 - 5 # /hpf 10/09/2022 12:46 AM CDT [facility] WBC UA 0-5 0 - 5 # /hpf 10/09/2022 12:46 AM CDT [facility] Bacteria UA None Seen None Seen 10/09/2022 12:46 AM CDT [facility] Squamous Epithelial Cells 3-5 0 - 5 /hpf 10/09/2022 12:46 AM CDT [facility] Mucus UA 1+ /LPF 10/09/2022 12:46 AM CDT [facility] Urine URINE SPECIMEN OBTAINED BY CLEAN CATCH PROCEDURE / Unknown Collection / Unknown 10/09/2022 12:36 AM CDT 10/09/2022 12:38 AM CDT Narrative [facility] - 10/09/2022 12:46 AM CDT Grant Cedillo LAB - URINALYSI S ORDERABLES Performing Organization Address City/[facility] Co de Phone Number [facility] [address] [place] [phone] * (ABNORMAL) CBC W AUTO DIFFERENTIAL (10/09/2022 12:35 AM CDT) WBC 8.4 4.4 - 10.7 x10E9/L 10/09/2022 12:40 AM CDT [facility] WBC Corrected 10/09/2022 12:40 AM CDT [facility] RBC 4.64 3.80 - 5.20 x10E12/L 10/09/2022 12:40 AM CDT [facility] Hemoglobin 12.0 12.0 - 15.6 gm/dL 10/09/2022 12:40 AM CDT [facility] Hematocrit 37.5 35.9 - 45.5 % 10/09/2022 12:40 AM CDT [facility] MCV 80.8 80.7 - 98.3 fl 10/09/2022 12:40 AM CDT [facility] MCH 25.9(L) 26.7 - 34.0 pg 10/09/2022 12:40 AM CDT [facility] MCHC 32.0 30.8 - 35.9 gm/dL 10/09/2022 12:[facility] Platelet Count 327 153 - 416 x10E9/L 10/09/2022 12:40 AM CDT [facility] RDW-CV 14.3 12.1 - 14.9 % 10/09/2022 12:40 AM CDT [facility] MPV 10.5 9.4 - 12.9 fl 10/09/2022 12:40 AM CDT [facility] Neutrophils % 53.3 44.0 - 73.0 % 10/09/2022 12:40 AM CDT [facility] Lymphocytes % 37.6 20.0 - 43.0 % 10/09/2022 12:40 AM CDT [facility] Monocytes % 5.9 5.0 - 13.0 % 10/09/2022 12:40 AM CDT [facility] Eosinophils % 2.6 0.0 - 6.0 % 10/09/2022 12:40 AM CDT [facility] Basophils % 0.5 0.0 - 2.0 % 10/09/2022 12:40 AM CDT [facility] Immature Granulocytes 0.1 0 - 1 % 10/09/2022 12:40 AM CDT [facility] Neutrophil Absolute 4.49 2.01 - 7.14 x10E9/L 10/09/2022 12:40 AM CDT [facility] Lymphocytes Absolute 3.17 1.07 - 3.94 x10E9/L 10/09/2022 12:40 AM CDT [facility] Monocytes Absolute 0.50 0.26 - 1.07 x10E9/L 10/09/2022 12:40 AM CDT [facility] Eosinophils Absolute 0.22 0 - 0.47 x10E9/L 10/09/2022 12:40 AM CDT [facility] Basophils Absolute 0.04 0 - 0.08 x10E9/L 10/09/2022 12:40 AM CDT [facility] Immature Granulocytes Absolute 0.01 0.00 - 0.06 x10E9/L 10/09/2022 12:40 AM CDT [facility] nRBC Auto 0 /100 WBC 10/09/2022 12:40 AM CDT [facility] Blood BLOOD SPECIMEN / Unknown Venipuncture / Unknown 10/09/2022 12:35 AM CDT 10/09/2022 12:38 AM CDT Grant Cedillo DO LAB - HEMATOLOG Y ORDERABLES Performing Organization Address City/State/[facility] Co de Phone Number [facility] [address] [place] [address] * B-TYPE NATRIURETIC PEPTIDE (10/09/2022 12:35 AM CDT) BNP <10 <=100 pg/mL 10/09/2022 1:04 AM CDT [facility] Blood BLOOD SPECIMEN / Unknown Venipuncture / Unknown 10/09/2022 12:35 AM CDT 10/09/2022 12:38 AM CDT Narrative [facility] - 10/09/2022 1:04 AM CDT [...] Guzman Nguyen STYLES LAB - CHEMISTRY ORDERABLES [facility] [address] [place], [place] [phone] * (ABNORMAL) COMPREHENSIVE METABOLIC PANEL (10/09/2022 12:35 AM CDT) [facility] Glucose 102 70 - 105 mg/dL 10/09/2022 12:54 AM CDT [facility] Sodium 140 136 - 145 mmol/L 10/09/2022 12:54 AM CDT [facility] Potassium 4.1 3.5 - 5.1 mmol/L 10/09/2022 12:54 AM CDT [facility] Chloride 110(H) 98 - 107 mmol/L 10/09/2022 12:54 AM CDT [facility] CO2 21(L) 22 - 29 mmol/L 10/09/2022 12:54 AM CDT [facility] Calcium 9.9 8.4 - 10.4 mg/dL 10/09/2022 12:54 AM CDT [facility] Anion Gap 9 6 - 16 mmol/L 10/09/2022 12:54 AM CDT [facility] BUN 10 5.3 - 18.7 mg/dL 10/09/2022 12:54 AM CDT [facility] Creatinine 0.72 0.57 - 1.11 mg/dL 10/09/2022 12:54 AM CDT [facility] Alkaline Phosphatase 77 40 - 150 U/L 10/09/2022 12:54 AM CDT [facility] ALT 23 0 - 55 U/L 10/09/2022 12:54 AM CDT [facility] AST 19 5 - 34 U/L 10/09/2022 12:54 AM CDT [facility] Protein Total 7.9 6.4 - 8.3 gm/dL 10/09/2022 12:54 AM CDT [facility] Albumin 4.6 3.4 - 5.0 gm/dL 10/09/2022 12:54 AM CDT [facility] Bilirubin Total 0.3 0.2 - 1.2 mg/dL 10/09/2022 12:54 AM CDT [facility] eGFR by CKD-EPI >90 >=90 mL/min/1.7 3 m2 10/09/2022 12:54 AM CDT [facility] Blood BLOOD SPECIMEN / Unknown Venipuncture / Unknown 10/09/2022 12:35 AM CDT 10/09/2022 12:38 AM CDT Grant Cedillo DO LAB - CHEMISTRY ORDERABLES Performing Organization Address City/State/[facility] Co de Phone Number [facility] [address] [place] [address] * HCG BETA BLOOD QUANTITATIVE (10/09/2022 12:35 AM CDT) hCG Quantitative <2.42 mIU/mL 10/10/19 12:59 AM CDT [facility] Blood BLOOD SPECIMEN / Unknown Venipuncture / Unknown 10/09/2022 12:35 AM CDT 10/09/2022 12:38 AM CDT Narrative [facility] - 10/09/2022 12:59 AM CDT [...] LAB - CHEMISTRY ORDERABLES Performing Organization Address [facility] de Phone Number [facility] [address] [place], [place] [phone] * LIPASE BLOOD (10/09/2022 12:35 AM CDT) Lipase 14 <60 U/L 10/09/2022 12:54 AM CDT [facility] Blood BLOOD SPECIMEN / Unknown Venipuncture / Unknown 10/09/2022 12:35 AM CDT 10/09/2022 12:38 AM CDT Grant Cedillo DO LAB - CHEMISTRY ORDERABLES Performing Organization Address [facility] de Phone Number [facility] [address] [place] [phone] * CT HEAD WO CONTRAST (10/09/2022 12:18 [...] Urine Negative Negative 10/09/2022 12:02 AM CDT [facility] Urine URINE / Unknown 10/08/2022 1 1:52 PM CDT 10/08/2022 11:52 PM CDT Grant Cedillo DO LAB - URINALYSI S ORDERABLES [facility] [address] [place] [phone] * SONOGRAM - COMPLETE (03/16/2022 1:55 PM SHOPPER MARKETING MANAGER) Anatomical Region Laterality Modality Other 03/16/2022 1:55 PM SHOPPER MARKETING MANAGER Narrative 03/17/2022 9:50 AM SHOPPER MARKETING MANAGER ? [facility] ?PHONE: ??FAX: ? Pat. Name: ?JAZMIN JUAN Pat. No: ?[id number] Study Date: ?? 03/16/2022 ??1:55pm , Age: ? 2000, 21 Pregnancies: ?? 3, Para 1011 Height: ? 64 in Weight: ? 158 lb LMP: ?09/23/2021 GA by LMP: ?24w6d GA by US: ? 26w0d ?? NENA: 06/22/2022 GA Selected: ??24w6d (LMP) NENA: ?06/30/2022 Referring MD: Wilmar Casas MD Perfume Compounder: ??Isamar Lopez, MABEL, RONNIE CPT4: ? 63034 BMI: ?27.12 Hist/Ind: ? Anatomic Survey ?[place]-Low Risk Female MEASUREMENTS & AGE ? GROWTH EVALUATION Measurement ??GA ? Range ? Srce %for GA Ratios ----- ---- ------- BPD ??6.2 cm 25w1d (32d9g-95b3l) Hadl BPD 52% FL/BPD 0.79 (0.71 - 0.87) HC ??23.6 cm 25w5d (86l1h-21o5l) Hadl HC ??58% FL/AC ??0.22 (0.20 - 0.24) AC ??22.1 cm 26w3d (46r1c-53v3l) Hadl AC ??86% HC/AC ??1.07 (1.02 - 1.21) FL ?? 4.9 cm 26w3d (11g5j-75j2u) Hadl FL ??82% CI ? 0.73 (0.70 - 0.86) HL ?? 4.4 cm 26w3d (24t7n-32i0z) Juan HL ??75% Cere 2.9 cm 25w4d (09k7t-15l0v) Hill Cere64% GA for sonogram 26w0d (79q6r-41z5p) ?? Weight Estimate: based on (BPD,HC,AC,FL) Avg [...] Signature> ??03/16/2022 02:48pm Revised Wilmar Casas MD [facility] ORDERABLES
--- OUTSIDE RECORDS SUMMARY | 2024-03-10 16:12 | XMS_ITS | CONTINUITY OF CARE DOCUMENT ---
Author Name jin abdi Address Unknown Organization [facility] Address [address] [place] [address] Phone [phone] Care Team Providers Care Balance Wheel Screw Hole Driller Name Role Phone Sammie Coates MD Unavailable DASHAWN LOPEZ MD Unavailable DASHAWN LOPEZ MD Unavailable [phone] PROBLEMS Condition Status Date Provider Notes Cardiology [...] In-person encounter Office Visit Sammie Coates MD [facility] - In-person encounter Office Visit Donnie Hawkins MD [facility] Cardiology examinationPregnancy with 35 completed weeks gestationSleep apnea, mildAnemia - In-person encounter Office Visit Sammie oCates MD [facility] DizzinessConstipation - In-person encounter Office Visit Sammie Coates MD [facility] - In-person encounter Office Visit Sammie Coates MD [facility] PalpitationChest painShortness of breathDepressionPregnancy with 35 [...] mclain Fisher blood pressure, systolic 118 mm[Hg] [facility] bulmaro [place] oxygen saturation, oximetry 98 % Thais Fisher [...] ewed - no changes required Pebbles Cross HOTEL DESK CLERK social history E&M S moking History: Richelle judd currently smokes every day. Pebbles Pachecori HOTEL DESK CLERK drug use no Pebbles Sanchezreri HOTEL DESK CLERK alcohol use no Pebbles Sanchezreri HOTEL DESK CLERK smoking status Current every day smoker V brent Pachecoparviz HOTEL DESK CLERK number of grandchildren Sammie Coates MD Pebbles Pachecori HOTEL DESK CLERK social history reviewed E&M revi ewed - no changes required Pebbles Pachecori HOTEL DESK CLERK social history E&M S moking History: Richelle judd is a former smoker. Pebbles Pachecori HOTEL DESK CLERK drug use no Pebbles Pachecori HOTEL DESK CLERK alcohol use no Pebbles Pachecori HOTEL DESK CLERK social history reviewed E&M revi ewed - no changes required Pebbles Pachecori INDER social history E&M S moking History: Richelle judd currently smokes every day. Pebbles Pachecoparviz LOVING smoking history, tot al pack/day 1 Niurka Bolaños cigarette use yes Niurka Bolaños smoking status Current every day smoker A andie Bolaños INSURANCE PROVIDERS Payer name Policy type / Coverage type [facility] alliance party ID [employer] [facility] Medicaid [id number] ADVANCE DIRECTIVES Name Date DISCUSSED - NO DECISION MADE TREATMENT PLAN Date Name Performer [id number],C, P binta still has palpitations off and [...] would recommend PCP follow up Brad Burrell [id number],C, P binta stil has chest pain HAS [...] GI to rule out GERD Brad Burrell [id number],C,H gb 9.9, this is likely culprit for her sxs, advised her to take her iron medication and follow up with LEAD FIRE PROTECTION ENGINEER, PCP Brad Burrell [id number],C, P binta still experiencing shortness of breath [...] O ISSUES WITH PREGANCY HAD DELIVERED AT [facility] G ETS SOB WITH WALKING OR S TARTED SMOKING 2-3 PER DAY N O PRIOR HX OF ASTHMA December 25, 2022 S he continues to be SOB with very minimal exertion, differential dx related to pulmonary process vs anemia Brad Burrell [id number],C, M ild sleep apnea per ecent sleep study 05/2021. Autopap/Cpap recommended WILL ARRANGE FOR CPAP/AUTOPAP December 04, 2022 H as not been able to get for a sleep titration study due to lack of child guidance counselor Pebbles Cross NP [id number],S,C ONCLUSIONS: 1 . Normal left ventricular systolic [...] Sammie Coates MD, FACC Pebbles Tay LOVING [id number],S, P atient still has palpitations off and [...] IF SHE HAS RECURRENT SVE Pebbles Cross HOTEL DESK CLERK [id number],C, T he Patient was encouraged to stop smoking. Pebbles Cross HOTEL DESK CLERK [id number],S,N EEDS TO SEE GI SHE HAD NATURAL CHILDBIRTH AND HAS NOTICED ISSUES WIHT BM SINCE DELIVERY Pebbles Cross HOTEL DESK CLERK [id number],S, P atient still experiencing shortness of breath [...] O ISSUES WITH PREGANCY HAD DELIVERED AT [facility] G ETS SOB WITH WALKING OR S TARTED SMOKING 2-3 PER DAY N O PRIOR HX OF ASTHMA Pebbles Cross HOTEL DESK CLERK [id number],S, P atvivek stil has chest pain HAS HIATIAL HERNIA AND OR ACID REFLUX O K FOR MALLOX OR MYLANTA December 04, 2022 P binta reports sharp/stabbing mostly R sided chest pains S USPECT REPRODUCIBLE CP THE MAIN ISSUE SHE IS ALSO PENDING A GI W/U IN ISAIAH Cross HOTEL DESK CLERK [id number],C,Flow murmur n oted on exam Pebbles rCoss HOTEL DESK CLERK [id number],C,P atvivek still has palpitations off and on [...] ocumented as isolated beats. Pebbles Sanchezdinah LOVING [id number],Russell,P binta still experiencing shortness of breath S [...] adequately assess the RVSP. Pebbles Tay LOVING [id number],C,M ild sleep apnea per ecent sleep study 05/2021. Autopap/Cpap recommended WILL ARRANGE FOR CPAP/AUTOPAP Pebbles Sanchezdinah LOVING [id number],Russell,P binta stil has chest pain HAS HIATIAL HERNIA AND OR ACID REFLUX O K FOR MALLOX OR MYLANTA Whitneyladonna Sanchezdinah LOVING [id number],C,T he Patient was encouraged to stop smoking. Pebbles Cross NP [id number],S,M AY BE MURMUR ASSOCIATED WITH WILL GET ECHO DONE Pebbles Cross HOTEL DESK CLERK [id number],S,P binta has had chest discomfort throughout her H HAD CHEST PAINS BEFORE LASTS FOR 5MIN AND ARE RECURRENT D OESNT RECALL HAVING ISSUES WITH FIRST Pebbles Cross HOTEL DESK CLERK [id number],S,P binta has been experiencing shortness of breath associated with chest discomfort throughout her G ETS SOB RECALLS WITH FIRST M AY BE RELATED TO ANEMIA A ND SMOKING M AY BE HAVING SLEEP APNEA Pebbles Pachecoparviz HOTEL DESK CLERK [id number],C,E KG n office today shows Sinus Tachycardia W ILL ARRANGE FOR TELE MONITOR FOR 2 WKS C HECK ECHO FOR MVP HAS MURMUR ON EXAM MAY BE FLOW RELATED MURMUR FROM Pebbles Pachecoparviz LOVING [id number],C,S inus Tachycardia per EKG in office today. C HECK FOR ANEMIA P T LOOKS PALE M AY NEED ADDITIONAL IRON SUPPLEMENTATION Pebbles Pachecoparviz LOVING Cardiology:F/u with PCP regarding anemia. Prior workup showed H gb 9.9, this is likely culprit for her sxs, advised her to take her iron medication and follow up with LEAD FIRE PROTECTION ENGINEER, PCP Sammie Coates MD Cardiology: T he Patient was encouraged to stop smoking. Sammie Coates MD Cardiology: M ild sleep apnea per ecent sleep study 05/2021. Autopap/Cpap recommended WILL ARRANGE FOR CPAP/AUTOPAP December 04, 2022 H as not been able to get for a sleep titration study due to lack of child guidance counselor Sammie Coates MD Cardiology:Repeat sl eep study [...] her iron medication and follow up with LEAD FIRE PROTECTION ENGINEER, PCP Brad Burrell Electrophysiology: Richelle judd still [...] O ISSUES WITH PREGANCY HAD DELIVERED AT [facility] G ETS SOB WITH WALKING OR [...] sleep titration study due to lack of child guidance counselor Pebbles Cross NP Cardiology:CONCLUSIO NS: 1 . [...] O ISSUES WITH PREGANCY HAD DELIVERED AT [facility] G ETS SOB WITH WALKING OR [...] M AY BE HAVING SLEEP APNEA Pebbles Sanchezdinah LOVING Cardiology:EKG n off ice today shows Sinus Tachycardia W ILL ARRANGE FOR TELE MONITOR FOR 2 WKS C HECK ECHO FOR MVP HAS MURMUR ON EXAM MAY BE FLOW RELATED MURMUR FROM Pebbles Sanchezdinah LOVING Cardiology:Sinus Tac hycardia per EKG in office today. C HECK FOR ANEMIA P T LOOKS PALE M AY NEED ADDITIONAL IRON SUPPLEMENTATION Pebbles Sanchezdinah HOTEL DESK CLERK Date Name Sleep Study Holter Monitor 48 [...] EKG Sammie Coates MD compl eted EKG Dnonie Hawkins MD comp leted EKG Sammie Coates MD compl eted EKG Sammie Coates MD compl eted Ambulatory Oximetry Sammie Coates MD completed EKG Sammie Coates MD compl eted
== END 2024-03-10 16:12 | disposition left against medical advice (07) ==
PROVIDERS: PCP Internal Medicine Infectious Disease
DX: R05.9 Cough, unspecified (principal)
CPT/HCPCS: 99199

== ENCOUNTER 2024-04-26 16:28 | Emergency (ER) | payer OTHER, SELFPAY ==
--- NOTE | ~2024-04-26 | XR_ITS ---
CHEST RADIOGRAPH, PA AND LATERAL CLINICAL HISTORY: cp . COMPARISON: 02/22/2024 TECHNIQUE: PA and lateral views of the chest. FINDINGS The cardiomediastinal silhouette is unremarkable. The lungs are clear. Visualized osseous structures and soft tissues are unremarkable. IMPRESSION: No focal infiltrate or effusion. Reviewed, dictated and finalized at location A.
--- NOTE | 2024-04-26 16:39 | ECG_ITS ---
Test Date: 2024-04-26 16:43:58 Measurements Intervals [place] Rate: 98 P: 77 [place]: 136 QRS: 90 QRSD: 84 T: 47 QT: 338 QTc: 433 Interpretive Statements SINUS RHYTHM LEFT ATRIAL ENLARGEMENT [-0.15mV P WAVE IN V1/V2] Compared to ECG 12/17/2023 20:59:03 Atrial abnormality now present Right-axis deviation no longer present Electronically Signed On 04-27-2024 09:13:26 CDT by Gus Chadwick M.D.
--- NOTE | 2024-04-26 16:41 | ED_ITS ---
HPI - Chest Pain General Chief Complaint: Upper Respiratory Infection Stated Complaint: uri Time Seen by Provider: 04/26/24 16:42 Focused HPI: Patient is a 23-year-old female who presents the ED with report of chest pain. Patient reports having intermittent chest pain over the last few days, present in her midsternal chest. States it became worse today. Has not taken anything for the pain. Also reports shortness of breath. Denies cough or cold symptoms. Denies fevers. Denies pain or swelling in legs. GENERAL: Well-appearing, well-nourished, and in no acute distress. HEAD: Normocephalic, atraumatic. CHEST: Clear to auscultation. ?No respiratory distress. HEART: Regular rate and rhythm.? MSK: TTP in midsternal chest reproducing pain. NEURO: ?Alert and oriented x3. Patient screened in triage and initial orders placed.? ?Additional care and disposition to be based upon?diagnostic testing and treatment. Source: patient Mode of arrival: ambulatory Limitations: no limitations Related Data Allergies Allergy/AdvReac Type Severity Reaction Status Date / Time No Known Allergies Allergy Verified 03/10/24 15:10 [facility] Past Medical History Medical History Patient denies medical problems Social History Social History Smoking packs per day: 0.5 Smoking cigarettes per day: 10.0 Smoking status: Current every day smoker MDM - Chest Pain MDM Narrative Medical decision making narrative: MSE by KATHARINE in triage. Patient left facility after initial MSE without further work up or evaluation. Discharge Plan Discharge Clinical Impression: Atypical chest pain Patient Disposition: Elopement After Seen by Prov Patient Language: Yakut Prescriptions: No Action Saline Nasal 0.65 % aerosol,spray 2 spray intranasal QID PRN (Reason: dry nasal passages) Qty: 44 0RF metronidazole 500 mg tablet 500 mg PO Q12H 7 Days Qty: 14 0RF methylprednisolone [Medrol (Edwin)] 4 mg tablets,dose pack See Rx Instructions .ROUTE .COMPLEX Qty: 21 0RF Rx Instructions: orally per package directions ondansetron 4 mg tablet,disintegrating 4 mg PO Q8H PRN (Reason: nausea and vomiting) Qty: 14 0RF prednisone 20 mg tablet 20 mg PO DAILY 5 Days Qty: 5 0RF famotidine 20 mg tablet 20 mg PO BID Qty: 14 0RF ondansetron 4 mg tablet,disintegrating 4 mg PO Q8H Qty: 14 0RF acetaminophen 650 mg tablet extended release 650 mg PO .q6 hr PRN (Reason: pain) Qty: 20 0RF ibuprofen 200 mg capsule 600 mg PO Q6H PRN (Reason: pain) Qty: 20 0RF Follow-up/Referrals: Regla,Indra Crespo. [Primary Care Provider] -
--- OUTSIDE RECORDS SUMMARY | 2024-04-26 17:16 | XMS_ITS | Clinical Summary ---
Author Organization [facility] Address [address] [place] [id number] Care Team Providers Care Director Of Strategic Alliances Name Role Phone Unavailable Primary Care Provider [...] - 19+ 3-dose series) 09/17/2019 PAP SMEAR 2021 INFLUENZA VACCINE (#1) 2023 PNEUMOCOCCAL VACCINE 0-49 YEARS Aged Out No longer eligible based on patient's age to complete this topic Insurance [facility] MEDICAID
--- OUTSIDE RECORDS SUMMARY | 2024-04-26 17:16 | XMS_ITS | Referral Summary ---
Author Organization [facility] at [facility] Building Address [address] [place] [id number] Care Team Providers Care Cleaning Team Member Name Role Phone Zak Arauz MD Primary [...] # Disposition: Follow up task sent to [facility] scheduling pool. Desires discharge home today. Macrosomia [...] (05/14/2022): When she was seen in the [facility] there was concern for a dropped beats and a arrhythmia and she was referred to MFM. A arrhythmia was also heard in her primary OB office. She was scanned by [facility] (care everywhere) which did not note an [...] antepa rtum 05/12/2022 Overview (06/23/2022): [facility] RN: Mariah Rodriguez - [phone] [x] Full [facility] Care; [x] Blue Team Referring Provider: [facility] - Hamida Morales [x] Dating Criteria: [...] Valentin [x] Method of feeding: breast [x] [employer] Doll Wigs: [x] PP Depression Discussed: plan reviewed and [...] 35 completed weeks gestation 10/22/2020 05/18/2022 Immunizations Immunization Administration Dates Next Due MMR 07/01/2022(Deferred: No [...] often do you attend chur ch or hindu services? More than 4 times per year 06/30/2022 Do you belong to any clubs o r organizations such as jehovah's witness groups, unions, fraternal or athletic groups, or [...] place to sleep or slept in a group home (including now)? 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 TRACHOMATIS AMPLIFICATION STAT 02/05/2023 10:21 AM NIPPLE MACHINE OPERATOR from Last 3 Months or Most Recently Relevant to Health Maintenance Results * N. gonorrhoeae/C. trachomatis Amplification Urine (02/05/2023 10:21 AM NIPPLE MACHINE OPERATOR) C. trachomatis Not Detected Not Detected DEBBIE ARREOLA Comment:Testing performed by : [facility], [address] [place] [address]., [id number] N. gonorrhoeae Not Detected Not Detected DEBBIE ARREOLA Comment: Interpretive Data This assay detects Chlamydia trachomatis and Neisseria gonorrhoeae by nucleic acid amplification testing (NAAT). This assay has been cleared by the [place] Food and Drug administration. The performance characteristics of this test have been verified by the [facility]. The performance characteristics of this test have not been evaluated in individuals less than 14 years of age. Current Interpretive Data last revised 2022. Testing performed by: [facility], [address] [place] [address], [place]., [address] Urine (None) 02/05/2023 10:2 1 AM NIPPLE MACHINE OPERATOR 02/05/2023 10:30 AM NIPPLE MACHINE OPERATOR us [facility]CROBIOLOG[facility] - GENERAL ORDER RANDY Final Result [facility] [address] [place] [address] from Last 3 Months or Most Recently Relevant to Health Maintenance Insurance [employer] [facility] Member Subscriber Plan / Payer (Ef fective 2020-Present) Name:Davida Juan Relation to Subscriber:Self Name:Davida Juan Payer ID:[id number] (NAIC) Group ID:Not on file Type:MEDICAID RISK OTHER Address: [facility] [id number] [place] [id number] [employer] [facility] [employer] [facility] Advance Directives For more information, please contact: [phone] * Full Code (Latest Code Status on File) Date Activated Date Inactivated Comments 06/30/2022 12:39 AM 07/01/2022 8:58 PM * Full Code Date Activated Date Inactivated Comments 06/28/2022 9:29 PM 06/30/2022 12:39 AM Full CPR in case of cardiopulmonary arrest Care Teams Cleaning Team Member Relationship Specialty [place] [address] [place] [address] PCP - General Internal Medicine 03/16/22
--- OUTSIDE RECORDS SUMMARY | 2024-04-26 17:16 | XMS_ITS | Data Portability ---
Author Organization [facility] [employer] , [facility]_José Luis Address [address] [place] [address] Assessment Encounter Date Assessment Date Assessment LastModified [...] Details Last Modified Time Details Appointments None record ed. Lab pregna ncy test, urine 2023 024 [email or web address] [facility]_kyle, [address] [place], [address], 4 12:17:59 beta-H CG, quanti tative , serum or plasma 2023 024 [place] [employer] [facility], [address] [place], [address], 4 11:22:59 CBC w/ auto diff 2023 024 [facility], [address] [place], [address], 4 16:24:37 urinal ysis, dipsti ck 2023 024 [email or web address] [facility], [address] [place], [address], 4 15:41:36 cultur e, urine 2023 024 [facility], [address] [place], [address], 4 03:44:30 bacter ial vagino sis + vagini tis panel, vagina l 2023 024 [employer] [facility], [address] [place], [address], 4 15:02:47 unlist ed lab - STD screen ing ([facility]) 2023 024 [employer] [facility], [address] [place] [address], [address], 4 18:03:53 cultur e, urine 2023 024 [facility], [address] [place], [address], 4 13:18:17 urinal ysis comple te, reflex cultur e 2023 024 [email or web address] [employer] [facility], [address] [place], [address], 4 17:10:39 bacter ial vagino sis + vagini tis panel, vagina l 2023 024 [employer] [facility], [address] [place] [address], [address], 4 13:26:12 iron + total iron-b inding capaci ty (TIBC) , serum 2023 024 [facility], [address] [place], [address], 4 13:18:14 transf jan, serum 2023 024 [employer] [facility], [address] [place], [address], 4 13:18:15 ferrit in, serum or plasma 2023 024 [employer] [facility], [address] [place], [address], 4 13:18:16 iron, serum 2023 024 [email or web address] [employer] [facility], [address] [place], [address], 4 17:10:39 hemogl obinop athy profil e, blood 2023 024 [employer] [facility], [address] [place], [address], 4 13:18:16 CBC w/ auto diff 2023 024 [employer], [address] [place], [address], 4 11:58:37 bacter ial vagino sis + vagini tis panel, vagina l 2023 024 [employer], [address] [place], [address], 4 14:29:51 prolac tin, serum 2023 024 [employer], [address] [place], [address], 4 10:55:59 TSH, serum, reflex free T4 2023 024 [employer], [address] [place], [address], 4 10:56:00 Referral None record ed. Procedures None record ed. Surgeries None record ed. Imaging US, transv aginal 2023 024 [email or web address] Not available 4 14:19:37 US, transv aginal 2023 024 KATHLEEN Not available 4 07:06:51 Medication Orders tranex amic acid 650 mg tablet 2023 brendan [facility]/Pharmacy #[id number], [address], [place], [address], 4 11:28:23 Prenat al 28 mg iron-8 00 mcg tablet 2023 024 [facility]/Pharmacy #[id number], [address], [place], [address], 4 11:28:21 ibupro fen 800 mg tablet 2023 [id number], [address], [address], 4 15:05:11 Patient TargetsNo targets recorded. Patient Instructions Encounter Date Encounter Id Patient Instructions Last Modified By Organization Details Last Modified Time 09/23/2023 [id number] Urinary Tract Infection (UTI) in Women: Care Instructions [email or web address] Not available 09/23/2023 16:06:56 Reason for Referral None Reported. Results Created Date Observation Date Name Description Value Unit Range Abnormal Flag Note LastModifiedBy Organization Detail LastModifiedTime 01/26/2001/27/2023 CULTU RE, URINE , ROUTI NE culture, urine, routine SEE NOTE CULTU RE, URINE , ROUTI NE Micro Numbe r: [id number] Test Statu s: Final Speci men [...] Tube, is recom sylvie d. Not Available [facility] [address] [place], [address], 01/27/2023 01:04:47 01/26/20 23 01/27/2023 VAGIN ITIS PLUS STD PANEL bacterial vaginosis BV POS negati ve abnormal Not Available [address], [address], 01/27/2023 14:07:48 01/26/20 23 01/27/2023 VAGIN ITIS PLUS STD PANEL austin species C. spp neg negati ve normal Not Available [address], [address], 01/27/2023 14:07:48 01/26/20 23 01/27/2023 VAGIN ITIS PLUS STD PANEL austin glabrata C. gla neg negati ve normal Not Available [address], [address], 01/27/2023 14:07:48 01/26/20 23 01/27/2023 VAGIN ITIS PLUS STD PANEL trichomonas vaginalis CV/TV TRICH neg negati ve normal Not Available [address], [address], 01/27/2023 14:07:48 01/26/20 23 01/27/2023 VAGIN ITIS PLUS STD PANEL chlamydia trachomatis CT neg negati ve normal This repor t is inten ded for us in clini tana monit oring and manag ement of patie nts. It is not inten ded for use in medic al-le gal appli catio n. Not Available [address], [address], 01/27/2023 14:07:48 01/26/20 23 01/27/2023 VAGIN ITIS PLUS STD PANEL neisseria gonorrhoeae GC neg negati ve normal This repor t is inten ded for us in clini tana monit oring and manag ement of patie nts. It is not inten ded for use in medic al-le gal appli catio n. Not Available [address], [address], 01/27/2023 14:07:48 02/23/19 24 02/24/2023 PROLA CTIN prolactin 16.1 NG/mL Refer ence Range s Femal e aged 18-Ad ult Nonpr egnan t: 2.8-2 9.2 ng/mL Pregn ant: 9.7-2 08.5 ng/mL Post- menop ausal : 1.8-2 0.3 ng/mL Pregn love, lacta tion, and the admin istra tion of oral contr acept michaela can incre ase prola ctin lizette ntrat ions. Not Available [address], [address], 02/24/2023 10:55:59 02/23/19 24 02/24/2023 TSH W/ REFLE X TSH 1.23 mIU/L 0.55 - 4.78 normal Refer ence Range Femal e aged 18-Ad ult: 0.55- 4.78 Pregn love Refer ence Range s First Trime ster 0.26- 2.66 Secon d Trime ster 0.55- 2.73 Third Trime ster 0.43- 2.91 Not Available [address], [address], 02/24/2023 10:56:00 02/23/19 24 02/25/2023 VAGIN ITIS PLUS STD PANEL bacterial vaginosis BV POS negati ve abnormal Not Available [address], [address], 02/25/2023 14:29:51 02/23/19 24 02/25/2023 VAGIN ITIS PLUS STD PANEL austin species C. spp POS negati ve abnormal Not Available [address], [address], 02/25/2023 14:29:51 02/23/19 24 02/25/2023 VAGIN ITIS PLUS STD PANEL austin glabrata C. gla neg negati ve normal Not Available [facility] [address] [place] [address], [address], 02/25/2023 14:29:51 02/23/19 24 02/25/2023 VAGIN ITIS PLUS STD PANEL trichomonas vaginalis CV/TV TRICH neg negati ve normal Not Available [address], [address], 02/25/2023 14:29:51 02/23/19 24 02/25/2023 VAGIN ITIS PLUS STD PANEL chlamydia trachomatis CT neg negati ve normal This repor t is inten ded for us in clini tana monit oring and manag ement of patie nts. It is not inten ded for use in medic al-le gal appli catio n. Not Available [address], [address], 02/25/2023 14:29:51 02/23/19 24 02/25/2023 VAGIN ITIS PLUS STD PANEL neisseria gonorrhoeae GC neg negati ve normal This repor t is inten ded for us in clini tana monit oring and manag ement of patie nts. It is not inten ded for use in medic al-le gal appli catio n. Not Available [address], [address], 02/25/2023 14:29:51 09/23/19 24 09/24/2023 CBC (INCL UDES DIFF/ PLT) WBC 8.4 thous and/u L 4.0 - 9.8 normal Not Available [facility] [address] [place] [address], [address], 09/24/2023 11:58:37 09/23/19 24 09/24/2023 CBC (INCL UDES DIFF/ PLT) RBC 4.5 kimberley on/uL 3.9 - 4.9 normal Not Available [address], [address], 09/24/2023 11:58:37 09/23/19 24 09/24/2023 CBC (INCL UDES DIFF/ PLT) hemoglobin 12.4 g/dL 11.8 - 14.8 normal Not Available [address], [address], 09/24/2023 11:58:37 09/23/19 24 09/24/2023 CBC (INCL UDES DIFF/ PLT) hematocrit 38.7 % 35.5 - 44.0 normal Not Available [address], [address], 09/24/2023 11:58:37 09/23/19 24 09/24/2023 CBC (INCL UDES DIFF/ PLT) MCV 86.4 fL 82.0 - 99.0 normal Not Available [address], [address], 09/24/2023 11:58:37 09/23/19 24 09/24/2023 CBC (INCL UDES DIFF/ PLT) MCH 27.7 pg 27.2 - 32.6 normal Not Available [address], [address], 09/24/2023 11:58:37 09/23/19 24 09/24/2023 CBC (INCL UDES DIFF/ PLT) MCHC 32.0 g/dL 31.5 - 35.5 normal Not Available [address], [address], 09/24/2023 11:58:37 09/23/19 24 09/24/2023 CBC (INCL UDES DIFF/ PLT) RDW-CV 14.4 % 11.5 - 14.5 normal Not Available [address], [address], 09/24/2023 11:58:37 09/23/19 24 09/24/2023 CBC (INCL UDES DIFF/ PLT) platelet 298 thous and/u L 140 - 350 normal Not Available [address], [address], 09/24/2023 11:58:37 09/23/19 24 09/24/2023 CBC (INCL UDES DIFF/ PLT) MPV 11.2 fL 9.3 - 12.4 normal Not Available [address], [address], 09/24/2023 11:58:37 09/23/19 24 09/24/2023 CBC (INCL UDES DIFF/ PLT) absolute neutrophil 5.03 thous and/u L 1.90 - 7.00 normal Not Available [address], [address], 09/24/2023 11:58:37 09/23/19 24 09/24/2023 CBC (INCL UDES DIFF/ PLT) absolute lymphocyte 2.39 thous and/u L 0.70 - 4.50 normal Not Available [address], [address], 09/24/2023 11:58:37 09/23/19 24 09/24/2023 CBC (INCL UDES DIFF/ PLT) absolute monocyte 0.61 thous and/u L 0.10 - 1.30 normal Not Available [address], [address], 09/24/2023 11:58:37 09/23/19 24 09/24/2023 CBC (INCL UDES DIFF/ PLT) absolute eosinophil 0.32 thous and/u L <0.70 normal Not Available [address], [address], 09/24/2023 11:58:37 09/23/19 24 09/24/2023 CBC (INCL UDES DIFF/ PLT) absolute basophil 0.04 thous and/u L <0.20 normal Not Available [address], [address], 09/24/2023 11:58:37 09/23/19 24 09/24/2023 CBC (INCL UDES DIFF/ PLT) absolute immature granulocyte 0.02 thous and/u L <0.03 normal Not Available [address], [address], 09/24/2023 11:58:37 09/23/19 24 09/24/2023 VAGIN ITIS PLUS STD PANEL bacterial vaginosis BV POS negati ve abnormal Not Available [address], [address], 09/24/2023 13:26:12 09/23/19 24 09/24/2023 VAGIN ITIS PLUS STD PANEL austin species C. spp POS negati ve abnormal Not Available [address], [address], 09/24/2023 13:26:12 09/23/19 24 09/24/2023 VAGIN ITIS PLUS STD PANEL austin glabrata C. gla neg negati ve normal Not Available [address], [address], 09/24/2023 13:26:12 09/23/19 24 09/24/2023 VAGIN ITIS PLUS STD PANEL trichomonas vaginalis CV/TV TRICH neg negati ve normal Not Available [address], [address], 09/24/2023 13:26:12 09/23/19 24 09/24/2023 VAGIN ITIS PLUS STD PANEL chlamydia trachomatis CT neg negati ve normal This repor t is inten ded for us in clini tana monit oring and manag ement of patie nts. It is not inten ded for use in medic al-le gal appli catio n. Not Available [address], [address], 09/24/2023 13:26:12 09/23/19 24 09/24/2023 VAGIN ITIS PLUS STD PANEL neisseria gonorrhoeae GC neg negati ve normal This repor t is inten ded for us in clini tana monit oring and manag ement of la squires. It is not inten ded for use in medic al-le gal appli catio n. Not Available [facility] [address] [place], [address], 09/24/2023 13:26:12 09/23/19 24 09/27/2023 IRON AND TOTAL IRON JUSTINE NG CAPAC ITY iron, total 35 mcg/d L 40-190 low Not Available [place] [address] [place], [address], 09/27/2023 13:18:14 09/23/19 24 09/27/2023 IRON AND TOTAL IRON JUSTINE NG CAPAC ITY iron binding capacity 452 mcg/d L_(ca lc) 250-45 0 high Not Available [place] [address] [place], [address], 09/27/2023 13:18:14 09/23/19 24 09/27/2023 IRON AND TOTAL IRON JUSTINE NG CAPAC ITY % saturation 8 %_(ca lc) 16-45 low Not Available [place] [address] [place], [address], 09/27/2023 13:18:14 09/23/1909/27/2023 URINA LYSIS , COMPL ETE color TNP TEST NOT PERFO RMED No suita ble speci men recei kailee. Pleas e revie w the test requi remen ts at testd irect ory.q uestd iagno stics .com Not Available [place] [address] [place], [address], 09/27/2023 13:18:15 09/23/1909/27/2023 TRANS FILI N transferrin 353 mg/dL 188-34 1 high Not Available [place] [address] [place], [address], 09/27/2023 13:18:15 09/23/19 24 09/27/2023 HEMOG LOBIN OPATH Y EVALU ATION red blood cell count 4.56 kimberley on/uL 3.80-5 .10 Not Available [place] [address] [place], [address], 09/27/2023 13:18:16 09/23/19 24 09/27/2023 HEMOG LOBIN OPATH Y EVALU ATION hemoglobin 12.5 g/dL 11.7-1 5.5 Not Available [place] [address] [place], [address], 09/27/2023 13:18:16 09/23/1909/27/2023 HEMOG LOBIN OPATH Y EVALU ATION hematocrit 41.5 % 35.0-4 5.0 Not Available [place] [address] [place], [address], 09/27/2023 13:18:16 09/23/1909/27/2023 HEMOG LOBIN OPATH Y EVALU ATION MCV 91.0 fL 80.0-1 00.0 Not Available [address], [address], 09/27/2023 13:18:16 09/23/1909/27/2023 HEMOG LOBIN OPATH Y EVALU ATION MCH 27.4 pg 27.0-3 3.0 Not Available [address], [address], 09/27/2023 13:18:16 09/23/1909/27/2023 HEMOG LOBIN OPATH Y EVALU ATION RDW 14.1 % 11.0-1 5.0 Not Available [address], [address], 09/27/2023 13:18:16 09/23/19 24 09/27/2023 HEMOG LOBIN OPATH Y EVALU ATION hemoglobin A 97.4 % >96.0 Not Available [address] [place], [address], 09/27/2023 13:18:16 09/23/19 24 09/27/2023 HEMOG LOBIN OPATH Y EVALU ATION hemoglobin F <1.0 % <2.0 Not Available [facility] [place] [address] [place], [address], 09/27/2023 13:18:16 09/23/19 24 09/27/2023 HEMOG LOBIN OPATH Y EVALU ATION hemoglobin A2 (quant) 2.6 % 2.0-3. 2 Not Available [facility] [address] [address] [place], [address], 09/27/2023 13:18:16 09/23/1909/27/2023 HEMOG LOBIN OPATH Y EVALU ATION interpretati on Maddie l pheno type. Maddie l hemog lobin distr ibuti on, no HgS, HgC or other abnor mal hemog lobin obser kailee. Not Available [facility] [address] [address] [place], [address], 09/27/2023 13:18:16 09/23/1909/27/2023 FILI TIN ferritin 12 NG/mL 16-154 low Not Available [facility] [address], [address], 09/27/2023 13:18:16 09/23/1909/27/2023 CULTU RE, URINE , ROUTI NE culture, urine, routine SEE NOTE CULTU RE, URINE , ROUTI NE Micro Numbe r: [id number] Test Statu s: Final Speci men [...] Cultu re Trans port Tube. Not Available [facility] [place] [address] [place], [address], 09/27/2023 13:18:17 11/03/19 24 11/04/2023 STD SCREE BRUCE ([facility] ) hep BS Ag Non-Re active non-re active normal Not Available [address], [address], 11/04/2023 18:03:53 11/03/19 24 11/04/2023 STD S[facility]EE [facility] ([facility] ) hep C Ab Non-Re active non-re active normal Not Available [address], [address], 11/04/2023 18:03:53 11/03/19 24 11/04/2023 STD S[facility]EE [facility] ([facility] ) HIV 1/2 Ag/Ab Non-Re active non-re active normal Not Available [address], [address], 11/04/2023 18:03:53 11/03/19 24 11/04/2023 STD SCREE [facility] ([facility] ) syphilis Ab Non-Re active non-re active normal Not Available [address], [address], 11/04/2023 18:03:53 11/03/19 24 11/05/2023 CULTU RE, URINE , ROUTI NE culture, urine, routine SEE NOTE CULTU RE, URINE , ROUTI NE Micro Numbe r: [id number] Test Statu s: Final Speci men Sourc e: Urine Speci men Quali ty: Adequ ate Resul t: No Growt h Not Available [facility] [address] [address] [place], [address], 11/05/2023 03:44:30 11/03/19 24 11/05/2023 VAGIN ITIS PLUS STD PANEL bacterial vaginosis BV neg negati ve normal Not Available [address], [address], 11/05/2023 15:02:46 11/03/19 24 11/05/2023 VAGIN ITIS PLUS STD PANEL austin species C. spp neg negati ve normal Not Available [address], [address], 11/05/2023 15:02:46 11/03/19 24 11/05/2023 VAGIN ITIS PLUS STD PANEL austin glabrata C. gla neg negati ve normal Not Available [address], [address], 11/05/2023 15:02:46 11/03/19 24 11/05/2023 VAGIN ITIS PLUS STD PANEL trichomonas vaginalis CV/TV TRICH neg negati ve normal Not Available [address], [address], 11/05/2023 15:02:46 11/03/19 24 11/05/2023 VAGIN ITIS PLUS STD PANEL chlamydia trachomatis CT neg negati ve normal This repor t is inten ded for us in clini tana monit oring and manag ement of patie nts. It is not inten ded for use in medic al-le gal appli catio n. Not Available [address], [address], 11/05/2023 15:02:46 11/03/19 24 11/05/2023 VAGIN ITIS PLUS STD PANEL neisseria gonorrhoeae GC neg negati ve normal This repor t is inten ded for us in clini tana monit oring and manag ement of patie nts. It is not inten ded for use in medic al-le gal appli catio n. Not Available [address], [address], 11/05/2023 15:02:46 11/03/19 24 11/03/2023 urina lysis , dipst ick Leukocytes Negati ve Not Available [address], [place], [address], 11/03/2023 15:15:56 11/03/19 24 11/03/2023 urina lysis , dipst ick Nitrite negati ve Not Available [address], [place], [address], 11/03/2023 15:15:56 11/03/19 24 11/03/2023 urina lysis , dipst ick Urobilinogen .2 Not Available [place] [address], [place], [address], 11/03/2023 15:15:56 11/03/19 24 11/03/2023 urina lysis , dipst ick Protein Trace Not Available [address], [place], [address], 11/03/2023 15:15:56 11/03/19 24 11/03/2023 urina lysis , dipst ick pH 7.0 Not Available [address], [place], [address], 11/03/2023 15:15:56 11/03/19 24 11/03/2023 urina lysis , dipst ick Blood Modera te Not Available [address], [place], [address], 11/03/2023 15:15:56 11/03/1911/03/2023 urina lysis , dipst ick Specific [place] 1.015 Not Available [facility] [address], [place], [address], 11/03/2023 15:15:56 11/03/19 24 11/03/2023 urina lysis , dipst ick Ketone Trace Not Available [address], [place], [address], 11/03/2023 15:15:56 11/03/19 24 11/03/2023 urina lysis , dipst ick Bilirubin Negati ve Not Available [address], [address], 11/03/2023 15:15:56 11/03/19 24 11/03/2023 urina lysis , dipst ick Glucose Negati ve Not Available [address], [address], 11/03/2023 15:15:56 11/03/19 24 11/03/2023 urina lysis , dipst ick Appearance Clear Not Available [address], [address], 11/03/2023 15:15:56 11/03/19 24 11/03/2023 urina lysis , dipst ick Color Pale Yellow Not Available [address], [address], 11/03/2023 15:15:56 12/23/1912/24/2023 HCG, TOTAL , QUANT [...] er of this assay . Not Available [facility] [address] [place], [address], 12/24/2023 11:22:59 12/23/19 24 12/24/2023 CBC (INCL UDES DIFF/ PLT) WBC 5.5 thous and/u L 4.0 - 9.8 normal Not Available [address], [address], 12/24/2023 16:24:37 12/23/19 24 12/24/2023 CBC (INCL UDES DIFF/ PLT) RBC 4.4 kimberley on/uL 3.9 - 4.9 normal Not Available [address], [address], 12/24/2023 16:24:37 12/23/19 24 12/24/2023 CBC (INCL UDES DIFF/ PLT) hemoglobin 12.1 g/dL 11.8 - 14.8 normal Not Available [address], [address], 12/24/2023 16:24:37 12/23/19 24 12/24/2023 CBC (INCL UDES DIFF/ PLT) hematocrit 38.2 % 35.5 - 44.0 normal Not Available [address], [address], 12/24/2023 16:24:37 12/23/19 24 12/24/2023 CBC (INCL UDES DIFF/ PLT) MCV 87.4 fL 82.0 - 99.0 normal Not Available [address], [address], 12/24/2023 16:24:37 12/23/19 24 12/24/2023 CBC (INCL UDES DIFF/ PLT) MCH 27.7 pg 27.2 - 32.6 normal Not Available [address], [address], 12/24/2023 16:24:37 12/23/19 24 12/24/2023 CBC (INCL UDES DIFF/ PLT) MCHC 31.7 g/dL 31.5 - 35.5 normal Not Available [address], [address], 12/24/2023 16:24:37 12/23/1912/24/2023 CBC (INCL UDES DIFF/ PLT) RDW-CV 13.0 % 11.5 - 14.5 normal Not Available [address], [address], 12/24/2023 16:24:37 12/23/19 24 12/24/2023 CBC (INCL UDES DIFF/ PLT) platelet 280 thous and/u L 140 - 350 normal Not Available [address], [address], 12/24/2023 16:24:37 12/23/1912/24/2023 CBC (INCL UDES DIFF/ PLT) MPV 11.5 fL 9.3 - 12.4 normal Not Available [address], [address], 12/24/2023 16:24:37 12/23/1912/24/2023 CBC (INCL UDES DIFF/ PLT) absolute neutrophil 2.62 thous and/u L 1.90 - 7.00 normal Not Available [address], [address], 12/24/2023 16:24:37 12/23/19 24 12/24/2023 CBC (INCL UDES DIFF/ PLT) absolute lymphocyte 2.12 thous and/u L 0.70 - 4.50 normal Not Available [address], [address], 12/24/2023 16:24:37 12/23/1912/24/2023 CBC (INCL UDES DIFF/ PLT) absolute monocyte 0.46 thous and/u L 0.10 - 1.30 normal Not Available [address], [address], 12/24/2023 16:24:37 12/23/1901 0112/24/2023 CBC (INCL UDES DIFF/ PLT) absolute eosinophil 0.21 thous and/u L <0.70 normal Not Available [address], [address], 12/24/2023 16:24:37 12/23/19 24 12/24/2023 CBC (INCL UDES DIFF/ PLT) absolute basophil 0.03 thous and/u L <0.20 normal Not Available [address], [address], 12/24/2023 16:24:37 12/23/19 24 12/24/2023 CBC (INCL UDES DIFF/ PLT) absolute immature granulocyte 0.02 thous and/u L <0.03 normal Not Available [address], [address], 12/24/2023 16:24:37 12/23/19 24 12/23/2023 pregn love test, urine HCG negati ve Not Available [facility] [address] [place], [address], 12/23/2023 11:39:47 11/05/19 24 11/03/2023 , trans vagin al No observ ation record ed. [email or web address] [address], [place], [address], 11/08/2023 17:34:32 12/23/19 24 12/23/2023 , trans vagin al No observ ation record ed. [email or web address] [address], [place], [address], 12/24/2023 09:52:08 Result Notes None recorded. Problems [...] : NO ProblemS tatus: Resolve Not Available [facility] 2 20:44:50 Hypertro phy of clitoris [id number] Completed 202010/15/2020 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 ; Progress : Stable Added By: Charity Villalobos Add to Current Problems : NO ProblemS tatus: Resolve Not Available [facility] 2 20:44:52 Clinical finding Completed 202010/15/2020 state, incident al; Progress : Stable Added By: Bala Grant Add to Current Problems : NO ProblemS tatus: Resolve Not Available [facility] 2 14:41:03 Gestatio n period, 17 weeks [id number] Completed 202008/06/2020 17 weeks gestatio n of pregnanc y; Progress : Stable Added By: Cecilia Anne Add to Current Problems : NO ProblemS tatus: Resolve Not Available [facility] 2 20:44:50 Pregnanc y, childbir th and puerperi um finding Completed 202006/18/2020 Encounte r for supervis ion of normal first pregnanc y, first trimeste r; Progress : Stable Added By: Cecilia Anne Add to Current Problems : NO ProblemS tatus: Resolve Not Available [facility] 2 20:44:51 Syphilis test finding [id number] Completed 202008/06/2020 Encounte r for screenin g for infectio ns with a predomin antly sexual mode of transmis mp; Progress : Stable Added By: Mariely Shaffer Add to Current Problems : NO ProblemS tatus: Resolve Not Available [facility] 2 20:44:[address] Concept Completed 202010/15/2020 Decrease d movement s, third trimeste r, fetus 1; Progress : Stable Added By: Lindy Oropeza Add to Current Problems : NO ProblemS tatus: Resolve Not Available [facility] 2 20:44:49 Gestatio n period, 27 weeks [id number] Completed 202010/15/2020 27 weeks gestatio n of pregnanc y; Progress : Stable Added By: Charity Villalobos Add to Current Problems : NO ProblemS tatus: Resolve Not Available [facility] 2 20:44:48 Gestatio n period, 24 weeks [id number] Completed 202010/15/2020 24 weeks gestatio n of pregnanc y; Progress : Stable Added By: Paige Rogers Add to Current Problems : NO ProblemS tatus: Resolve Not Available [facility] 2 14:41:04 Sampling of vagina for Papanico laou smear Completed 202006/18/2020 Encounte r for gynecolo gical examinat ion (general ) (routine ) without abnormal findings ; Progress : Stable Added By: Cecilia Anne Add to Current Problems : NO ProblemS tatus: Resolve Not Available [facility] 2 20:44:51 Disorder of upper respirat ory system [id number] Completed 202010/15/2020 Acute upper respirat ory infectio n, unspecif ied; Progress : Stable Added By: Bala Grant Add to Current Problems : NO ProblemS tatus: Resolve Not Available [facility] 2 14:41:03 Gestatio n period, 28 weeks [id number] Completed 202010/15/2020 28 weeks gestatio n of pregnanc y; Progress : Stable Added By: Leona Tavares Add to Current Problems : NO ProblemS tatus: Resolve Not Available [facility] 2 20:44:52 Gestatio n period, 20 weeks 84268586 Completed 202008/06/2020 20 weeks gestatio n of pregnanc y; Progress : Stable Added By: Griselda Daly Add to Current Problems : NO ProblemS tatus: Resolve Not Available [facility] 2 20:44:49 Gestatio n period, 8 weeks 94691353 Completed 202006/18/2020 8 weeks gestatio n of pregnanc y; Progress : Stable Added By: Cecilia Anne Add to Current Problems : NO ProblemS tatus: Resolve Not Available [facility] 2 20:44:48 Gestatio n period, 32 weeks 5603842 Completed 202010/15/2020 32 weeks gestatio n of pregnanc y; Progress : Stable Added By: Mattie Plasencia Add to Current Problems : NO ProblemS tatus: Resolve Not Available [facility] 2 20:44:[address] Concept Completed 202010/15/2020 Decrease d movement s, third trimeste r, not applicab le or unspecif ied; Progress : Stable Added By: Eduardo Rios Add to Current Problems : NO ProblemS tatus: Resolve Not Available [facility] 2 20:44:47 Gestatio n period, 30 weeks 88898768 Completed 202010/15/2020 30 weeks gestatio n of pregnanc y; Progress : Stable Added By: Leona Tavares Add to Current Problems : NO ProblemS tatus: Resolve Not Available [facility] 2 20:44:48 Antenata l screenin g for malforma tion Completed 202008/06/2020 Encounte r for antenata l screenin g for malforma tions; Progress : Stable Added By: Griselda Daly Add to Current Problems : NO ProblemS tatus: Resolve Not Available [facility] 2 20:44:47 Screenin g for malignan t neoplasm of cervix Completed 202006/18/2020 Encounte r for screenin g for malignan t neoplasm of cervix; Progress : Stable Added By: Cecilia Anne Add to Current Problems : NO ProblemS tatus: Resolve Not Available [facility] 2 20:44:50 Fatigue 83255629 Completed Shayy Denniser null, [place] [facility] 3 15:18:55 Hemorrho ids 76486521 Completed Shayy Tyron null, [place] [facility] 3 15:18:55 Headache 12951505 Completed Shayy Tyron null, [place] [facility] 15:18:55 heart disorder 919797276 Completed Shayy Ackerman null, [facility] [employer] [facility] 3 15:18:55 Problem Notes None recorded. Procedures Surgical History Date Name Laterality Status Provider Name and Address Organization Details Recorded Time 09/23/2022 Date of Last Pap Smear completed MAHNAZ HENNESSY, [facility]- [address] [facility], [place], [address], [facility] [employer] 09/23/2022 15:42:25 Imaging Results Imaging Date Name Status LastModified by Organization Details LastModified Time 11/03/2023 US, transvaginal completed [email or web address] [address], [place], [address], 11/08/2023 17:34:32 12/23/2023 US, transvaginal completed [email or web address] [address], [place], [address], 12/24/2023 09:52:08 Procedure Notes None recorded. Medical [...] tablet TAKE 1 TABLET BY MOUTH EVERY 3 DAYS FOR 2 DOSES active Not Available Not Available No t Available valacyclo vir 1 gram tablet take 1 tablet (1,000 mg) by oral route 2 times per day 08/06 completed valACYcl ovir 1 gram oral tablet RxNorm: 953618 Allow Substitu tion: True Refill Denied: No Edited by: jaimie miranda(Malina Paige moore ) on 08/07/19 Stopped by: jaimei miranda(Paige Gallardo ) on 08/07/19 21 Not Available Not [...] TAKE 1 TABLET BY MOUTH TWICE A DAY. *NO ALCOHOL UNTIL 24 HRS AFTER LAST DOSE* active Not Available Not Available No t [...] benzonat ate 100 mg oral capsule RxNorm: 013170 Allow Substitu tion: True Refill Denied: No Edited by: kenia (Leona Tavares ) on 09/03/19 Stopped by: kenia (Leona [...] Not Available Vitals Date Recorded Body height Body mass index (BMI) Body weight Body temperature Systolic blood pressure Diastolic blood pressure Provider Name and Address Organization Details Last Updated DateTime 4 162.56 cm 25.3 kg/m2 34831.5 2 g 97.4 [degF] 100 mm[Hg] 62 mm[Hg] Shereen Salgado MD [facility] 4 14:17:00 Date Recorded Body height Body mass index (BMI) Body weight Body temperature Systolic blood pressure Diastolic blood pressure Provider Name and Address Organization Details Last Updated DateTime 4 162.56 cm 25.5 kg/m2 62458.5 4 g 97.2 [degF] 102 mm[Hg] 58 mm[Hg] Nisha Lionel MD [facility] 4 14:12:33 Date Recorded Body height Body mass index (BMI) Body weight Body temperature Systolic blood pressure Diastolic blood pressure Provider Name and Address Organization Details Last Updated DateTime 4 162.56 cm 25.1 kg/m2 67867.4 9 g 97.6 [degF] 106 mm[Hg] 58 mm[Hg] Jose Cunha MD [facility] 4 15:02:17 Date Recorded Body height Body mass index (BMI) Body weight Body temperature Systolic blood pressure Diastolic blood pressure Provider Name and Address Organization Details Last Updated DateTime 4 162.56 cm 24.9 kg/m2 35301.1 8 g 97.4 [degF] 110 mm[Hg] 68 mm[Hg] Enedina Christy MD [facility] 4 15:25:13 Date Recorded Body height Body mass index (BMI) Body weight Systolic blood pressure Diastolic blood pressure Provider Name and Address Organization Details Last Updated DateTime 12/23/2023 162.56 cm 21.3 kg/m2 08777.4 5 g 96 mm[Hg] 42 mm[Hg] Kelley Sabrina [facility] 11:37:17 Social History Question Answer Notes LastModified by Organizat ion Details LastModified Time Tobacco Smoking Status Current Every Day Smoker Maria Guadalupe Farmer null, [facility] 01/07/2021 15:20:09 What Is Your Level Of Alcohol Consumption? None Information not available 01/07/2021 If You Are , What Was Your Level Of Alcohol Consumption Prior To ? None Information not available 05/07/2022 Are You Blind Or Do You Have Difficulty Seeing? No Information not available 11/19/2021 Are You Currently Employed? No [email or web address] Information not available 02/23/2023 Are You Deaf [...] Or The Highest Degree You Have Received? [id number] [email or web address] Information not available 02/23/2023 How Many Children [...] 01/07/2021 Have You Used IV Drugs? No [email or web address] Information not available 04/30/2022 Do You Or Have You Ever Used Any Other Forms Of Tobacco Or Nicotine? No [email or web address] Information not available 04/30/2022 Sex: Female Functional [...] Colon Cancer N Cytomegalovirus N Hyperthyroidism N Blood Transfusion N MRSA N Herpes (HSV) N Breast Cancer N Lung Cancer N Depression N Hypothyroidism N Incontinence N Panic Attacks N Neurological Disorder N Deep Vein Thrombosis N Anxiety Disorder N Autoimmune disease N Arthritis N Shingles N Tuberculosis/Positive PPD N Polycystic Ovarian Syndrome N Cervical Cancer N Chlamydia N Hematuria N Stroke N Varicosities N Seasonal allergies N Crohn's Disease N Alzheimer's/Dementia N COPD/Emphysema N Endometriosis N HPV/Genital Warts N IBS (Irritable Bowel Syndrome) N History of Abnormal Pap N High Cholesterol N Liver Disease N Kidney Infection N Fibromyalgia N Ulcer N Kidney Disease N HIV N Gallbladder disease N Von Willebrand disease N Sickle Cell Disease/Trait N ADD/ADHD N Eating Disorder N Diabetes Mellitus (non-insulin dependent ) N Anemia N Ovarian Problems N Multiple Sclerosis N Gonorrhea N Frequent Urinary Tract infections N Osteopenia N Headaches/migraines N GERD (reflux) N Ovarian Cancer N Diabetes (insulin dependent) N Seizures/Epilepsy N Fibroids N Asthma N Heart Attack N Endometrial Cancer N Lupus N Rubella N Blood Clotting Disorder N [...] SNOMED-CT Code Diagnosis ICD10 Code Diagnosis Note [id number] Meena elias CNM [facility] [address] [place] [address] 01/07/2021 15:10:04 01/07/2021 15:35:31 state 05573119 Z39.[address], formula feeding Acute vaginitis 70500600 N76.0 Reviewed vulvar care guidelines and safe sex practices [id number] Meena elias CNM [facility] [address] [facility] [place] [address] 11/19/2021 11:29:11 11/19/2021 15:59:41 Missed period 65043232 N92.5 LMP 09/23/21US 11/19 2p4hDvoie interval preg last baby 11/22/20 uncomplica dima Nausea 910041192 R11.0 [id number] Nirali Sellers MD [facility] [address] [facility] [place] [address] 01/06/2022 15:30:40 01/06/2022 22:13:42 Routine care 355762702 Z34.01 Z34.81 O09.511 O09.521 new ob labs drawn today. Discussed NIPT. anatomy scan next screening 4177 93044 Z36.0 Carrier de tection, molecular genetics 9959605 Z14.8 [id number] Meena Claire is, [facility] [address] [facility] [place] [address] 02/12/2022 12:08:07 02/18/2022 14:58:39 [id number] Sofia Hamm, [facility] [address] [facility] [place] [address] 03/18/2022 10:15:56 03/18/2022 11:26:29 Gestation period, 25 weeks 41484108 Z3A.25 Routine an tenatal care 969489013 Z34.92 Screening for disorder 038748373 Z11.3 N89.9 Headache 11240676 R51.9 External hemorrhoids 239 11688 K62.5 Malaise and fatigue 2717 81806 R53.83 [id number] LURDES ANNA DO [facility] [address] [facility] [place] [address] 04/08/2022 14:33:00 04/08/2022 16:18:12 Routine care 425889782 Z34.03 Z34.83 O09.513 O09.523 Gestation period, 28 weeks 41760933 Z3A.28 Increased nausea and vomiting 81386712 R11.2 Low back p ain in 6091983039 106 O26.704 [id number] Hamida Morales CNM [address] [address] 04/23/2022 13:11:59 04/23/2022 22:21:22 Normal in multigravida 5363425972 28820 Z34.83 Gestation period, 30 weeks 46727221 Z3A.30 labor precaution s given. FM counts discussed. F/u in L&D if experienci ng decreased movement, leaking fluid, 4 or more contractio ns in 1 hour not relieved by rest and fluids, or regular uterine contractio ns increasing in frequency and/or intensity. Reduced fe jani movement 275515929 O36.8199 Modified BPP - NST w/PADMINI [id number] Hamida Morales CNM [address] [address] 04/30/2022 17:19:10 05/01/2022 14:25:25 Supervision of high risk for multigravida done 8510932396 9109 O09.93 Vaginal irritation 45344 6004 N89.8 Gestation period, 31 weeks 18139579 Z3A.31 labor precaution s given. FM counts discussed. F/u in L&D if experienci ng decreased movement, leaking fluid, 4 or more contractio ns in 1 hour not relieved by rest and fluids, or regular uterine contractio ns increasing in frequency and/or intensity. [id number] HUA BLOOM MD [address] [address] 05/07/2022 15:09:36 05/08/2022 14:04:28 Gestation period, 32 weeks 8747406 Z3A.32 High risk 4720 0007 O09.73 Abnormalit y of heart 691878535 O36.8999 [id number] Nirali Sellers MD [facility] [address] [place] [address] 05/12/2022 11:02:08 05/12/2022 19:35:16 Normal in multigravida 2065912411 58498 Z34.83 discussed delivery plans. She has appt tomorrow with peds cardiology - most likely will deliver at [place] due to avail of more advanced services for baby Gestation period, 32 weeks 7510155 Z3A.32 [id number] MAHNAZ HENNESSY [facility] [address] [place] [address] 09/23/2022 14:28:49 09/24/2022 12:59:52 Gynecologic examination 89222930 Z01.419 Screening for malignant neoplasm of cervix 630977143 Z12.4 Contracept ion education 494387339 Z30.09 Contracept lee counseling : Discussed options including OCPs, NuvaRing, Nexplanon, hormonal and copper IUDs. Discussed risks, efficacy, noncontrac eptive benefits, and side effects of each option, including risk of VTE with hormonal contracept ion and uterine perforatio n, expulsion, infection with IUD. Recieved first shot of Depo in August. Pt has had brown discharge since then. Edcuation given. Increased frequency of urination 261686369 R35.0 Constipation 68005040 K5 9.00 Pt reports pelvic pain with constipati on. Education given. [id number] MAHNAZ HENNESSY [address] [place] [place] [address] 01/25/2023 15:40:40 01/26/2023 10:37:11 Abnormal uterine bleeding 8149898286 9100 N93.9 Pt was on depo and just got off of it. would like to restart. management 278 054123 Z39.1 Dysuria 82292634 R30.0 Initiation of depot contraception done 6199815359 19947 Z30.013 Pt comes in for Initiation of [...] Depo injections . Contracept ion care education 054282144 Z30.09 Contracept lee counseling : Discussed options including OCPs, NuvaRing, Nexplanon, hormonal and copper IUDs. Discussed risks, efficacy, noncontrac eptive benefits, and side effects of each option, including risk of VTE with hormonal contracept ion and uterine perforatio n, expulsion, infection with IUD. [id number] ELLEN PROCTOR ASSISTANT HALL DIRECTOR [facility] [address] [place] [address] 02/23/2023 14:08:03 02/24/2023 11:22:13 Vaginal discharge 341294750 N89.8 N76.0 Pt educated on exam findings, and discussed POC. Vaginal cx collected and sent. Rx for Flagyl and Diflucan sent. Pt advised to avoid fragrant soaps/laun dry detergents , use of baking soda soaks, having partner change soaps, etc. Further POC pending lab result review. Abnormal u terine bleeding 3700437877 9100 N93.9 Pt comes in with AUB. [...] was coordinate d. Discharge from nipple 54 674516 N64.52 -Discussed with patient hormones, or sexual [...] prolactin in your blood. POC:Prolac tin level [id number] MARY LOU QUINN-BC [address] [address] 03/16/2023 13:59:55 03/17/2023 13:24:56 Menorrhagia 515481414 N92.0 [id number] DARNELL TRAMMELL NP [address] [address] 09/23/2023 14:41:38 09/23/2023 17:14:01 Increased frequency of urination 906654145 R35.0 Patient reports frequency and bleeding. Patient unsure if bleeding is from the vagina or urethra as she is have irritation at meatus. Menorrhagia 809367111 N9 2.0 Patient electing to self collect. Given instructio ns by REQUISITION APPROVER to insert past mcc anamika and rotate for 30s. Patient denies questions and verbalizes understand ing. Wishes to proceed with self collection . Vulvar care guidelines and safe sex practices reviewed. TX pending results. Anemia 783624670 D64.9 [id number] DARNELL TRAMMELL NP [facility] [address] [place] [address] 11/03/2023 14:38:48 11/05/2023 13:41:16 Menorrhagia 025871956 N92.0 Discussed causes of abnormal uterine bleeding, [...] hours before Menses. Disorder o f menstruation 583276239 N92.6 Urinary symptoms 3418048 08 R39.9 Patient with reported frequent UTI. Patient with discomfort today.POCD ipstick and culture Venereal d isease screening 063212807 Z11.3 Discussed the various types of STDs, related symptoms and the potential consequenc es (including effects on fertility) of STD infections . Reviewed ways to limit exposure and prevention techniques . Recurrent urinary tract infection 779071026 N39.0 Family his tory of malignant neoplasm of genital structure 441419071 Z80.49 discussed MYRisk and talking with mother that has a history of unknown type of reporducti ve cancer. [id number] SAPNA RODAS [facility] [address] [place] [address] 12/23/2023 11:09:13 12/23/2023 14:19:37 test positive 916898345 Z32.01 Miscarriage 61475409 O03 .9 --TVUS today: homogeneou s uterus [...] fertility. -- Will collect CBC, and Quant today. Plan of Care-- Return Precaution s Given: Increased [...] 2020 (MEDICAID REPLACEMENT - HMO) Davida Juan [id number] Davida Juan 03/16/2023 1 [employer] [place] - [place] ON OR AFTER 2020 (MEDICAID REPLACEMENT - HMO) Davida Juan [id number] Davida Juan 09/23/2023 1 [employer] [place] ON [place] AFTER 2020 (MEDICAID REPLACEMENT - HMO) Davida Juan [id number] Davida Juan 11/03/2023 1 [employer] [place] AFTER 2020 (MEDICAID REPLACEMENT - HMO) Davida Juan [id number] Davida Juan 12/23/2023 1 [employer] [place] 2020 (MEDICAID REPLACEMENT - HMO) Davida Juan [id number] Davida Juan Notes Date Note Type Note [...] and denies any bloody discharge. ELLEN PROCTOR, SAPNA [address] [place], [address], [facility] 02/23/2023 15:40:57 03/16/2023 text/html Davida present s today for heavy bleeding. Pt states its not normal for her to be bleeding that much. She has been bleeding off and on 3x since Feb. She states it start off pink then bright red and then she pass clots. She is currently bleeding now. MARY LOU QUINN-RUY [address] [place], [address], [facility] 03/16/2023 14:29:55 09/23/2023 text/html Lower [...] in the shower. DARNELL TRAMMELL NP [address] [place], [address], [facility] 09/23/2023 16:16:47 11/03/2023 text/html Davida in offi ce for follow up visit and USUS done today in office pt c/o of painful urination and urinary frequency pt would like std testing DARNELL TRAMMELL NP [address] [place], [address], [facility] 11/04/2023 10:57:05 12/23/2023 text/html Patient went [...] is not as much yesterday and today. ELLEN PROCTOR, ASSISTANT HALL DIRECTOR [address] [facility], [place], [address], [facility] 12/23/2023 13:58:49 OBGyn Episode Ob Episode Information Episode Created Date Number of Fetuses Patient Bloodtype Patient rh Status Prepregnancy Weight lbs Domestic Partner Domestic Partner Phone Father Name Bus Company Manager Status 01/07/20 22 1 O Positive CLOSED Fetus Data First Name Last Name Admitted to NICU Weight (g) Sex Living Outcome Pediatric Complications Fetus ID Race Codes Race Delivery Type [id number] Problems Problem Notes large foramen ovale an eurysm on US arrhythmia - Ped cardiology referral Problem Name Start Date End Date Resolution Snomed Code Not e heart disorder 878185641 Headache 31059397 Fatigue 19866368 Hemorrhoids 52547358 Gordon Calculation Initial Gordon Date Initial Exam [...] Latest Days Gestation 0 07/01/19 23 0 Pre-gerda Flowsheet Flowsheet Date 01/06/2022 Brooks Score Blood Edema Fundus Height Fundus Units Glucose Ketones Leukocytes Nitrite Labor Signs Protein Cervic Dilation Cervic Effacement Cervic Station none none Type Weight in lbs Pre/Post Dialysis Refused Weight 149.145660251623 BP Diastolic BP Location Tested BP Systolic BP Type 62 134 Fetus Heart Rate Present A 150 Present Fetus Movement Comments 15 wks. Desires to have gene tic test done - will draw [place] panel. Also needs to do new OB labs - drawn today. Anatomy scan next Flowsheet Date 02/12/2022 Brooks Score Blood Edema Fundus Height Fundus Units Glucose Ketones Leukocytes Nitrite Labor Signs Protein Cervic Dilation Cervic Effacement Cervic Station none trace Type Weight in lbs Pre/Post Dialysis Refused Weight 158.572761606426 BP Diastolic BP Location Tested BP Systolic BP Type 66 110 Fetus Heart Rate Present Fetus Movement Comments Flowsheet Date 03/18/2022 Brooks Score Blood Edema Fundus Height Fundus Units Glucose Ketones Leukocytes Nitrite Labor Signs Protein Cervic Dilation Cervic Effacement Cervic Station 25 cm none neg Type Weight in lbs Pre/Post Dialysis Refused Weight 165.192035131779 BP Diastolic BP Location Tested BP Systolic BP Type 52 106 Fetus Heart Rate Present A 154 Fetus Movement A Yes Comments Soil Chemist in for visit today. Julio hurley complains [...] in lbs Pre/Post Dialysis Refused With clothes 169.873949362389 BP Diastolic BP Location Tested BP Systolic [...] in lbs Pre/Post Dialysis Refused With clothes 174.34000379732 BP Diastolic BP Location Tested BP Systolic BP Type 58 L arm 102 sitting Fetus Heart Rate Present A 155 Fetus Movement A Decreased Comments Only feels FM twice daily - NST reactive; PADMINI 14; persistent cardiac arrhythmia & Atriums mildly enlarged. EFW 98% 2107g. MFM consult sent. Flowsheet Date 04/30/2022 Brooks Score Blood Edema Fundus Height Fundus Units Glucose Ketones Leukocytes Nitrite Labor Signs Protein Cervic Dilation Cervic Effacement Cervic Station none none Type Weight in lbs Pre/Post Dialysis Refused With clothes 174.51455218383 BP Diastolic BP Location Tested BP Systolic BP Type 52 108 Fetus Heart Rate Present A 146 Fetus Movement A Yes Comments Pt was referred to [facility] for c ardiac arrhythmia. Dr. Chary Peoples from [facility] spoke w/Dr Daly a few days ago regarding ultrasound findings. Davida's baby has a large foramen ovale aneurysm which can be a variant of normal, however this aneurysm is larger than normal and can cause irregular heart beat as noted w/US on 04/23. With M, the heart rhythm was normal for them. This patient needs two things.1. Need to decide where this patient is going to delivery. She told them at [facility] she was considering [place] or [place].2. Refer her to Pediatric Cardiology at the place of her planned delivery.However, Davida noted at her visit that they told her baby's heart was normal. There is no report from [facility] available at the time of this visit. Additionally, Ander was seen at [place] by cardiology and has to wear halter monitor for 2 weeks (?). I asked Davida to sign a records request so we can get cardiology report since her PCP sent the referral. She has a manager of case with her from [place] d/t her social situation. I am under the impression that Davida is not clearly understanding the current situation. I have asked her to make sure she brings any concerns to our attention immediately. Additionally, I encouraged her to make follow up appointments with MD to further discuss appropriate f/u and care delivery.Note sent to obtain [facility] consult notes. Flowsheet Date 05/07/2022 Brooks Score Blood Edema Fundus Height Fundus Units Glucose Ketones Leukocytes Nitrite Labor Signs Protein Cervic Dilation Cervic Effacement Cervic Station 32 wks none Type Weight in lbs Pre/Post Dialysis Refused With clothes 177.451107158161 BP Diastolic BP Location Tested BP Systolic [...] Weight in lbs Pre/Post Dialysis Refused Weight 174.07259156111 BP Diastolic BP Location Tested BP Systolic [...] Domestic Partner Domestic Partner Phone Father Name Bus Company Manager Status 02/23/19 24 1 CLOSED Fetus Data First Name Last Name Admitted to NICU Weight (g) Sex Living Outcome Pediatric Complications Fetus ID Race Codes Race Delivery Type F [id number] Gordon Calculation Initial Gordon Date Initial Exam [...] Complications Tubal Sterilization Discharge Date Comments 1 [facility]- idural Discharge Information Feeding Method Contraceptive Method Maternal HG B and HCT Levels Ob Episode Information Episode Created Date Number of Fetuses Patient Bloodtype Patient rh Status Prepregnancy Weight lbs Domestic Partner Domestic Partner Phone Father Name Bus Company Manager Status 02/23/19 24 1 CLOSED Fetus Data First Name Last Name Admitted to NICU Weight (g) Sex Living Outcome Pediatric Complications Fetus ID Race Codes Race Delivery Type F Full Term [id number] Gordon Calculation Initial Gordon Date Initial Exam [...]
--- OUTSIDE RECORDS SUMMARY | 2024-04-26 17:16 | XMS_ITS | Clinical Summary ---
Author Organization [facility] Address [address] [place] [address] Care Team Providers Care Turret Press Operator Name Role Phone Zak Arauz MD [...] # Disposition: Follow up task sent to [facility] scheduling pool. Desires discharge home today. [...] (05/14/2022): When she was seen in the [facility] there was concern for a dropped beats and a arrhythmia and she was referred to MFM. A arrhythmia was also heard in her primary OB office. She was scanned by Marian [facility] (care everywhere) which did not note [...] , antepa rtum 05/12/2022 Overview (06/23/2022): [facility] RN: Mariah Rodriguez - [phone] [x] Full [facility] Care; [x] Blue Team Referring Provider: [facility] - Hamida Morales [x] Dating Criteria: [...] Valentin [x] Method of feeding: breast [x] Technical Education Teacher: [x] PP Depression Discussed: plan reviewed and [...] often do you attend chur ch or sabianist services? More than 4 times per year 06/30/2022 Do you belong to any clubs o r organizations such as anabaptism groups, unions, fraternal or athletic groups, or [...] place to sleep or slept in a detention (including now)? No 06/30/2022 [place] Depression Scale Answer Date Recorded [place] Depression Scale Total 3 09/03/2022 The thought [...] on file Legal Sex Female 2:54 PM EXPERIMENTAL MECHANIC ELECTRICAL Gender Identity Not on file Sexual Orientation [...] Epidur al N Livin g Complications:None Delivery Location:[facility] 2022 Term 39w 6d 21h 40m 21h 21m/0h 12m/0h 07m 4.29 kg (9 lb 7.3 oz) F Vagina l Combin ed Spinal /Epidu ral N Livin g 3 8 [address] ,[address] NELA Lugo , Carson Lauren MD Complications:Shoulder Dysto per Delivery Location:[facility] C ampus ([facility]LD) Last Filed Vital Signs Vital Sign [...] B Vaccine (1 o f 2 - Standard) 2016 Regular Well Visit/Exam 18-64 2018 Depression Screening 09/04/2023 09/03/2022 Influenza Vaccine (#1) 2023 12/07/2012, 2004 Chlamydia and Gonorrhea (GC/ CT) Screening 02/06/2024 02/05/2023, 11/01/2022, 04/20/2022 DTaP/Tdap/Td Vaccine (7 - Td or Tdap) 06/04/2032 06/04/2022, 07/06/2012, 12/30/2001, Additional history exists Hepatitis B Screening Completed 09/19/2001 , 2000, 2000 Pneumococcal vaccine <65 Completed 003, 09/19/2001, 2000 HPV Vaccines Completed 08/25/2013, 08/09, 07/06/2012 Varicella Vaccines Completed 07/01/2022, 0 05/15/2014, 09/19/2001 Procedures Procedure Name Priority Date/Time Associated Diagnosis Comments N. GONORRHOEAE/C. TRACHOMATIS AMPLIFICATION STAT 02/05/2023 10:21 AM EXPERIMENTAL MECHANIC ELECTRICAL from Last 3 Months or Most Recently Relevant to Health Maintenance Results * N. gonorrhoeae/C. trachomatis Amplification Urine (02/05/2023 10:21 AM EXPERIMENTAL MECHANIC ELECTRICAL) C. trachomatis Not Detected Not Detected DEBBIE ARREOLA Comment:Testing performed by : [facility], [address] [place] [address]., [address] N. gonorrhoeae Not Detected Not Detected DEBBIE ARREOLA Comment: Interpretive Data This assay detects Chlamydia trachomatis and Neisseria gonorrhoeae by nucleic acid amplification testing (NAAT). This assay has been cleared by the [place] Food and Drug administration. The performance characteristics of this test have been verified by the [facility]. The performance characteristics of this test have not been evaluated in individuals less than 14 years of age. Current Interpretive Data last revised 2022. Testing performed by: [facility], [address] [place] [address]., [id number] Urine (None) 02/05/2023 10:2 1 AM EXPERIMENTAL MECHANIC ELECTRICAL 02/05/2023 10:30 AM EXPERIMENTAL MECHANIC ELECTRICAL us Ana Paula ROMERO LAB MICROBIOLOGY - GENERAL ORDER RANDY Final Result DEBBIE ARREOLA [address] [facility] Department [place] [address] from Last 3 Months or Most Recently Relevant to Health Maintenance Insurance AETNA [facility] A[employer]NA [facility] [facility] AETNA [facility] [facility] Advance Directives For more information, please contact: [phone] * Full Code (Latest Code Status on File) Date Activated Date Inactivated Comments 06/30/2022 12:39 AM 07/01/2022 8:58 PM * Full Code Date Activated Date Inactivated Comments 06/28/2022 9:29 PM 06/30/2022 12:39 AM Full CPR in case of cardiopulmonary arrest Care Teams Turret Press Operator Relationship Specialty [place] [address] [place], [place] [id number] PCP - General Internal Medicine 03/16/22
--- OUTSIDE RECORDS SUMMARY | 2024-04-26 17:17 | XMS_ITS | Clinical Summary ---
Author Organization [facility] Address [address] [place] [address] Care Team Providers Care Immigration Services Officer Name Role Phone Unavailable Primary Care Provider Unavailabl e Source Comments [facility],non-owned Affiliates and Associated Physician Practices is amultiple site organization consisting of ambulatory clinics and hospital sitesin [place], [place], [place] and [place]. This disclosure is being madepursuant to the Care Everywhere program and may not contain all information available regarding this patient. Last updated 17.[facility] Allergies No known active allergies Social History [...] 73 10/08/2022 10:49 PM CDT Temperature 36.9 C (98.5 F) 10/08/2022 10:49 PM CDT Respiratory Rate 14 10/08/2022 10:49 PM CDT Oxygen Saturation 97% 10/08/2022 10:49 PM CDT Inhaled Oxygen Concentration - - Weight 68.9 kg (152 lb) 10/08/2022 10:49 PM CDT Height 162.6 cm (5' 4 ) 10/08/2022 10:49 PM CDT Body Mass Index 26.09 10/08/2022 10:49 PM CDT Plan of Treatment Health Maintenance Due Date Last Done Comments PAP SMEAR 2000 HPV VACCINE (1 - 3-dose series) 09/17/2015 MENINGOCOCCAL (Group B) VACCINE SHARED DECISION-MAKING (1 of 2 - Standard) 2016 HEPATITIS C SCREENING 09/12/2018 DTAP/TDAP/TD VACCINES (1 - Tdap) 09/17/2019 HEPATITIS B VACCINE (1 of 3 - 19+ 3-dose series) 09/17/2019 CHLAMYDIA/GONORRHEA SCREENING 10/29/2021, 07/22/2020, 07/22/2020 COVID-19 VACCINE (1 - 2023-2 5 season) 2023 INFLUENZA VACCINE (#1) 2023 3, 01/08/2005 DEPRESSION SCREENING 02/09/2024 ZOSTER VACCINE (1 of 2) 2050 HIV SCREENING Completed 09/02/2020, 05/01/2020 HIB VACCINE Aged Out No longer eligi ble based on patient's age to complete this topic MENINGOCOCCAL GROUPS A/C/Y/W VACCINE Aged Out No longer eligible b ased on patient's age to complete this topic PNEUMOCOCCAL VACCINE Aged Out No long er eligible based on patient's age to complete this topic
--- OUTSIDE RECORDS SUMMARY | 2024-04-26 17:17 | XMS_ITS | Encounter Summary ---
Author Organization [facility] Address [facility] [place] [address] Care Team Providers Care Line O Scribe Operator Name Role Phone New Referring, Provider Primary Care Provider Un available Encounter Details Date Type Department Care Team (Late st Contact Info) Description 12/11/2020 Hospital Follow-up Call [facility] [place] [address] Kelly Sanchez, RN Social History Tobacco Use [...] Assessment Author Status No 11/25/2020 5:46 AM CYRILT Krystal Cabrera RN Active * Do you have difficulty [...] Rule Out 12/16/2021 12/16/2021 12/16/2021 12:56 PM PLASTIC MOLDER COVID-19 Rule Out 01/05/2023 01/06/2023 01/06/2023 1:05 AM PLASTIC MOLDER documented as of this encounter Care Teams Line O Scribe Operator Relationship Specialty Start Date End Date New Referring, Provider PCP - General UNKNOWN PHYSICIAN SPECIALTY 07/13/20 documented as of this encounter
--- OUTSIDE RECORDS SUMMARY | 2024-04-26 17:17 | XMS_ITS | CONTINUITY OF CARE DOCUMENT ---
Author Name jin abdi Address Unknown Organization [facility] Address [address] [facility] [address] [place] [address] Phone [phone] Care Team Providers Care Crop Farm Workers Name Role Phone Sammie Coates MD Unavailable DASHAWN LOPEZ MD Unavailable DASHAWN LOPEZ MD Unavailable [phone] PROBLEMS Condition Status Date Provider Notes Cardiology examination completed 3 - Brad Burrell Palpitation active Monisha Carlos Chest pain active Monisha Carlos Shortness of breath active Monisha Romo eyer Anemia active Brad Ahkayleighzai Constipation active Sammie Coates MD Dizziness active Sammie Coates MD Tobacco abuse active Monisha Carlos Cardiac murmur active Monisha Carlos Sleep apnea, mild active Brad Ahmedzai with 35 completed weeks gestation active Brad Ahshirai Depression active Monisha Carlos ENCOUNTERS Date Type Provider Location Encounter Diag nosis - In-person encounter Office Visit Sammie Coates MD [facility] - In-person encounter Office Visit Donnie Hawkins MD [facility] Cardiology examinationPregnancy with 35 completed weeks gestationSleep apnea, mildAnemia - In-person encounter Office Visit Sammie Coates MD [facility] DizzinessConstipation - In-person encounter Office Visit Sammie Coates MD [facility] - In-person encounter Office Visit Sammie Coates MD [facility] PalpitationChest painShortness of breathDepressionPregnancy with 35 [...] mclain Fisher blood pressure, systolic 118 mm[Hg] [facility] bulmaro [place] oxygen saturation, oximetry 98 % Thais Fisher [...] ewed - no changes required Pebbles Cross TV HOST social history E&M S moking History: Richelle judd currently smokes every day. Pebbles Pachecori TV HOST drug use no Pebblse Sanchezreri TV HOST alcohol use no Pebbles Sanchezreri TV HOST smoking status Current every day smoker V brent Pachecoparviz TV HOST number of grandchildren Sammie Coates MD Pebbles Pachecori TV HOST social history reviewed E&M revi ewed - no changes required Pebbles Pachecori TV HOST social history E&M S moking History: Richelle judd is a former smoker. Pebbles Pachecori TV HOST drug use no Pebbles Pachecori TV HOST alcohol use no Pebbles Pachecori TV HOST social history reviewed E&M revi ewed - no changes required Pebbles Pachecori INDER social history E&M S moking History: Richelle judd currently smokes every day. Pebbles Pachecoparviz LOVING smoking history, tot al pack/day 1 Niurka Bolaños cigarette use yes Niurka Bolaños smoking status Current every day smoker A andie Bolaños INSURANCE PROVIDERS Payer name Policy type / Coverage type [facility] constitution party ID AETNA [facility] Medicaid [id number] ADVANCE DIRECTIVES Name Date DISCUSSED - NO DECISION MADE TREATMENT PLAN Date Name Performer [id number],C, P binta still has palpitations off and [...] would recommend PCP follow up Brad Burrell [id number],C, P binta stil has chest pain HAS [...] GI to rule out GERD Brad Burrell [id number],C,H gb 9.9, this is likely culprit for her sxs, advised her to take her iron medication and follow up with AGRICULTURE INTERN, PCP Brad Burrell [id number],C, P binta still experiencing shortness of breath [...] O ISSUES WITH PREGANCY HAD DELIVERED AT [facility] G ETS SOB WITH WALKING OR S TARTED SMOKING 2-3 PER DAY N O PRIOR HX OF ASTHMA December 25, 2022 S he continues to be SOB with very minimal exertion, differential dx related to pulmonary process vs anemia Brad Burrell [id number],C, M ild sleep apnea per ecent sleep study 05/2021. Autopap/Cpap recommended WILL ARRANGE FOR CPAP/AUTOPAP December 04, 2022 H as not been able to get for a sleep titration study due to lack of housekeeper child care Pebbles Cross NP [id number],S,C ONCLUSIONS: 1 . Normal left ventricular systolic [...] assess the RVSP. E lectronically Signed By: Carno Coates MD, FACC 2 023-05-26 14:40:38 CDT C C: Sammie Coatse MD, FACC Pebbles Tay LOVING [id number],S, P atient still has palpitations off and [...] IF SHE HAS RECURRENT SVE Pebbles Cross TV HOST [id number],C, T he Patient was encouraged to stop smoking. Pebbles Cross TV HOST [id number],S,N EEDS TO SEE GI SHE HAD NATURAL CHILDBIRTH AND HAS NOTICED ISSUES WIHT BM SINCE DELIVERY Pebbles Cross TV HOST [id number],S, P atient still experiencing shortness of breath [...] O ISSUES WITH PREGANCY HAD DELIVERED AT [facility] G ETS SOB WITH WALKING OR S TARTED SMOKING 2-3 PER DAY N O PRIOR HX OF ASTHMA Pebbles Cross TV HOST [id number],S, P atvivek stil has chest pain HAS HIATIAL HERNIA AND OR ACID REFLUX O K FOR MALLOX OR MYLANTA December 04, 2022 P binta reports sharp/stabbing mostly R sided chest pains S USPECT REPRODUCIBLE CP THE MAIN ISSUE SHE IS ALSO PENDING A GI W/U IN ISAIAH Cross TV HOST [id number],C,Flow murmur n oted on exam Pebbles Cross TV HOST [id number],C,P atvivek still has palpitations off and on [...] ocumented as isolated beats. Pebbles Sanchezdinah LOVING [id number],Russell,P binta still experiencing shortness of breath S [...] adequately assess the RVSP. Pebbles Tay LOVING [id number],C,M ild sleep apnea per ecent sleep study 05/2021. Autopap/Cpap recommended WILL ARRANGE FOR CPAP/AUTOPAP Pebbles Sanchezdinah LOVING [id number],Russell,P binta stil has chest pain HAS HIATIAL HERNIA AND OR ACID REFLUX O K FOR MALLOX OR MYLANTA Whitneyladonna Sanchezdinah LOVING [id number],C,T he Patient was encouraged to stop smoking. Pebbles Cross NP [id number],S,M AY BE MURMUR ASSOCIATED WITH WILL GET ECHO DONE Pebbles Cross TV HOST [id number],S,P binta has had chest discomfort throughout her H HAD CHEST PAINS BEFORE LASTS FOR 5MIN AND ARE RECURRENT D OESNT RECALL HAVING ISSUES WITH FIRST Pebbles Cross TV HOST [id number],S,P binta has been experiencing shortness of breath associated with chest discomfort throughout her G ETS SOB RECALLS WITH FIRST M AY BE RELATED TO ANEMIA A ND SMOKING M AY BE HAVING SLEEP APNEA Pebbles Pachecoparviz TV HOST [id number],C,E KG n office today shows Sinus Tachycardia W ILL ARRANGE FOR TELE MONITOR FOR 2 WKS C HECK ECHO FOR MVP HAS MURMUR ON EXAM MAY BE FLOW RELATED MURMUR FROM Pebbles Pachecoparviz LOVING [id number],C,S inus Tachycardia per EKG in office today. C HECK FOR ANEMIA P T LOOKS PALE M AY NEED ADDITIONAL IRON SUPPLEMENTATION Pebbles Pachecoparviz LOVING Cardiology:F/u with PCP regarding anemia. Prior workup showed H gb 9.9, this is likely culprit for her sxs, advised her to take her iron medication and follow up with AGRICULTURE INTERN, PCP Sammie Coates MD Cardiology: T he Patient was encouraged to stop smoking. Sammie Coates MD Cardiology: M ild sleep apnea per ecent sleep study 05/2021. Autopap/Cpap recommended WILL ARRANGE FOR CPAP/AUTOPAP December 04, 2022 H as not been able to get for a sleep titration study due to lack of housekeeper child care Sammie Coates MD Cardiology:Repeat sl eep study [...] her iron medication and follow up with AGRICULTURE INTERN, PCP Brad Burrell Electrophysiology: Richelle judd still [...] O ISSUES WITH PREGANCY HAD DELIVERED AT [facility] G ETS SOB WITH WALKING OR S [...] sleep titration study due to lack of housekeeper child care Pebbles Cross NP Cardiology:CONCLUSIO NS: 1 . [...] HAS NOTICED ISSUES WIHT BM SINCE DELIVERY Pebbels Cross NP Cardiology: Richelle judd still experiencing [...] O ISSUES WITH PREGANCY HAD DELIVERED AT [facility] G ETS SOB WITH WALKING OR S [...] AY NEED ADDITIONAL IRON SUPPLEMENTATION Pebbles Sanchezdinah TV HOST Date Name Sleep Study Holter Monitor 48 [...]
--- OUTSIDE RECORDS SUMMARY | 2024-04-26 17:17 | XMS_ITS | Clinical Summary ---
Author Organization [facility] Address [address] [place] [address] Care Team Providers Care Business Rules Developer Name Role Phone New Referring, Provider Primary [...] Active Problems Problem Noted Date Diagnosed Date ([facility]) 11/25/2020 Family History Medical History Relation Comments [...] Comments Blood Pressure 110/52 02/08/2023 7:[address] MAINTENANCE SUPERVISOR Pulse 87 02/08/2023 7:[address] MAINTENANCE SUPERVISOR Temperature 36.7 C (98.1 F) 02/08/2023 2:[address] MAINTENANCE SUPERVISOR Respiratory Rate 24 02/08/2023 7:[address] MAINTENANCE SUPERVISOR Oxygen Saturation 100% 02/08/2023 7:[address] MAINTENANCE SUPERVISOR Inhaled Oxygen Concentration - - Weight 67.1 kg (148 lb) 02/08/2023 2:[address] MAINTENANCE SUPERVISOR Height 162.6 cm (5' 4 ) 02/08/2023 2:[address] MAINTENANCE SUPERVISOR Body Mass Index 25.4 02/08/2023 2:[address] MAINTENANCE SUPERVISOR Plan of Treatment Health Maintenance Due Date Last Done Comments Annual Physical 09/17/2003 Pneumococcal Vaccine: Pediatrics (0 to 5 Years) and At-Risk Patients (6 to 64 Years) (1 of 2 - PCV) 2006 Meningococcal B Vaccine (1 of 2 - Standard) 2016 Hepatitis C 2018 Hepatitis B Vaccines (1 of 3 - 19+ 3-dose series) 09/17/2019 COVID-19 Vaccine (1 - season) 2023 Influenza Adult (#1) 2023 [...] patient's age to complete this topic Insurance AET Advance Directives * Full Code (Latest Code Status on File) Date Activated Date Inactivated Comments 11/25/2020 5:03 AM 11/28/2020 7:41 PM Care Teams Business Rules Developer Relationship Specialty Start Date End Date New Referring, Provider PCP - General UNKNOWN PHYSICIAN SPECIALTY 07/13/20
--- OUTSIDE RECORDS SUMMARY | 2024-04-26 19:04 | XMS_ITS | Clinical Summary ---
Author Organization [facility] Address [address] [place] [id number] Care Team Providers Care Supervisor Customer Records Division Name Role Phone Unavailable Primary Care Provider [...] patient's age to complete this topic Insurance [facility] MEDICAID
--- OUTSIDE RECORDS SUMMARY | 2024-04-26 19:04 | XMS_ITS | Clinical Summary ---
Author Organization [facility] Address [address] [place] [address] Care Team Providers Care Powder Worker Name Role Phone Zak Arauz MD Primary [...] # Disposition: Follow up task sent to [facility] scheduling pool. Desires discharge home today. [...] (05/14/2022): When she was seen in the [facility] there was concern for a dropped beats and a arrhythmia and she was referred to MFM. A arrhythmia was also heard in her primary OB office. She was scanned by Marian [facility] (care everywhere) which did not note [...] risk , antepa rtum 05/12/2022 Overview (06/23/2022): [facility] RN: Mariah Rodriguez - [phone] [x] Full [facility] Care; [x] Blue Team Referring Provider: [facility] - Hamida Morales [x] Dating Criteria: L [...] Valentin [x] Method of feeding: breast [x] Assistant Broker: [x] PP Depression Discussed: plan reviewed and [...] often do you attend chur ch or jain services? More than 4 times per year 06/30/2022 Do you belong to any clubs o r organizations such as confucianist groups, unions, fraternal or athletic groups, or [...] place to sleep or slept in a fci (including now)? No 06/30/2022 [place] Depression Scale Answer Date Recorded [place] Depression Scale Total 3 09/03/2022 The thought [...] on file Legal Sex Female 2:54 PM SMOCKER Gender Identity Not on file Sexual Orientation [...] Epidur al N Livin g Complications:None Delivery Location:[facility] 2022 Term 39w 6d 21h 40m 21h 21m/0h 12m/0h 07m 4.29 kg (9 lb 7.3 oz) F Vagina l Combin ed Spinal /Epidu ral N Livin g 3 [address] ,[address] NELA Lugo , Carson Lauren MD Complications:Shoulder Dysto per Delivery Location:[facility] C ampus ([facility]) Last Filed Vital Signs Vital Sign [...] GONORRHOEAE/C. TRACHOMATIS AMPLIFICATION STAT 02/05/2023 10:21 AM SMOCKER from Last 3 Months or Most Recently Relevant to Health Maintenance Results * N. gonorrhoeae/C. trachomatis Amplification Urine (02/05/2023 10:21 AM SMOCKER) C. trachomatis Not Detected Not Detected DEBBIE ARREOLA Comment:Testing performed by : [facility], [address] [place] [address]., [id number] N. gonorrhoeae Not Detected Not Detected DEBBIE ARREOLA Comment: Interpretive Data This assay detects Chlamydia trachomatis and Neisseria gonorrhoeae by nucleic acid amplification testing (NAAT). This assay has been cleared by the [place] Food and Drug administration. The performance characteristics of this test have been verified by the [facility]. The performance characteristics of this test have not been evaluated in individuals less than 14 years of age. Current Interpretive Data last revised 2022. Testing performed by: [facility], [address] [place] [address]., [id number] Urine (None) 02/05/2023 10:2 1 AM SMOCKER 02/05/2023 10:30 AM SMOCKER us Ana Paula ROMERO LAB MICROBIOLOGY - GENERAL ORDER RANDY Final Result DEBBIE ARREOLA [address] [facility] Department [place] [address] from Last 3 Months or Most Recently Relevant to Health Maintenance Insurance AETNA [facility] A[facility]NA [facility] AETNA [facility] Advance Directives For more information, please contact: [phone] * Full Code (Latest Code Status on File) Date Activated Date Inactivated Comments 06/30/2022 12:39 AM 07/01/2022 8:58 PM * Full Code Date Activated Date Inactivated Comments 06/28/2022 9:29 PM 06/30/2022 12:39 AM Full CPR in case of cardiopulmonary arrest Care Teams Powder Worker Relationship Specialty [place] [address] [place], [place] [id number] PCP - General Internal Medicine 03/16/22
--- OUTSIDE RECORDS SUMMARY | 2024-04-26 19:04 | XMS_ITS | Referral Summary ---
Author Organization [facility] at the Medical Office Building Address [address] [place] [address] Care Team Providers Care Banquet Line Cook Name Role Phone Zak Arauz MD Primary [...] # Disposition: Follow up task sent to [facility] scheduling pool. Desires discharge home today. Macrosomia [...] OB office. She was scanned by Marian [facility] (care everywhere) which did not note an [...] risk , antepa rtum 05/12/2022 Overview (06/23/2022): [facility] RN: Mariah Rodriguez - [phone] [x] Full [facility] Care; [x] Blue Team Referring Provider: [facility] - Hamida Morales [x] Dating Criteria: L [...] Valentin [x] Method of feeding: breast [x] Store Grocery Merchandiser: [x] PP Depression Discussed: plan reviewed and [...] often do you attend chur ch or denominational services? More than 4 times per year [...] place to sleep or slept in a [place] health care facility (including now)? No 06/30/2022 [place] Depression Scale Answer Date Recorded [place] Depression Scale Total 3 09/03/2022 The thought [...] on file Legal Sex Female 2:54 PM LOGISTICS VICE PRESIDENT Gender Identity Not on file Sexual Orientation [...] GONORRHOEAE/C. TRACHOMATIS AMPLIFICATION STAT 02/05/2023 10:21 AM LOGISTICS VICE PRESIDENT from Last 3 Months or Most Recently Relevant to Health Maintenance Results * N. gonorrhoeae/C. trachomatis Amplification Urine (02/05/2023 10:21 AM LOGISTICS VICE PRESIDENT) C. trachomatis Not Detected Not Detected DEBBIE ARREOLA Comment:Testing performed by : [facility], [address] [place] [address]., [address] N. gonorrhoeae Not Detected Not Detected DEBBIE ARREOLA Comment: Interpretive Data This assay detects Chlamydia trachomatis and Neisseria gonorrhoeae by nucleic acid amplification testing (NAAT). This assay has been cleared by the [place] Food and Drug administration. The performance characteristics of this test have been verified by the [facility]. The performance characteristics of this test have not been evaluated in individuals less than 14 years of age. Current Interpretive Data last revised 2022. Testing performed by: [facility], [address] [place] [address], [place]., [address] Urine (None) 02/05/2023 10:2 1 AM LOGISTICS VICE PRESIDENT 02/05/2023 10:30 AM LOGISTICS VICE PRESIDENT us [facility] MICROBIOLOGY - GENERAL ORDER RANDY Final Result [facility] [address] [place] [address] from Last 3 Months or Most Recently Relevant to Health Maintenance Insurance [facility] Member Subscriber Plan / Payer (Ef fective 2020-Present) Name:Davida Juan Relation to Subscriber:Self Name:Davida Juan Payer ID:[id number] (NAIC) Group ID:Not on file Type:MEDICAID RISK OTHER Address: [facility] [id number] [place] [id number] [facility] Advance Directives For more information, please contact: [phone] * Full Code (Latest Code Status on File) Date Activated Date Inactivated Comments 06/30/2022 12:39 AM 07/01/2022 8:58 PM * Full Code Date Activated Date Inactivated Comments 06/28/2022 9:29 PM 06/30/2022 12:39 AM Full CPR in case of cardiopulmonary arrest Care Teams Banquet Line Cook Relationship Specialty [place] [address] [place] [address] PCP - General Internal Medicine 03/16/22
--- OUTSIDE RECORDS SUMMARY | 2024-04-26 19:05 | XMS_ITS | Clinical Summary ---
Author Organization [facility] Address [address] [place] [address] Care Team Providers Care Assistant Bookkeeper Name Role Phone Unavailable Primary Care Provider Unavailabl e Source Comments [facility],non-owned Affiliates and Associated Physician Practices is amultiple site organization consisting of ambulatory clinics and hospital sitesin [place], [place], [place] and [place]. This disclosure is being madepursuant to the Care Everywhere program and may not contain all information available regarding this patient. Last updated 17.[facility] Allergies No known active allergies Social History [...]
--- OUTSIDE RECORDS SUMMARY | 2024-04-26 19:05 | XMS_ITS | Clinical Summary ---
Author Organization [facility] Address [address] [place] [address] Care Team Providers Care Wheat Buyer Name Role Phone New Referring, Provider Primary [...] Active Problems Problem Noted Date Diagnosed Date ([facility]) 11/25/2020 Family History Medical History Relation Comments [...] Comments Blood Pressure 110/52 02/08/2023 7:00 AM DYE BLENDER Pulse 87 02/08/2023 7:00 AM DYE BLENDER Temperature 36.7 C (98.1 F) 02/08/2023 2:54 AM DYE BLENDER Respiratory Rate 24 02/08/2023 7:00 AM DYE BLENDER Oxygen Saturation 100% 02/08/2023 7:00 AM DYE BLENDER Inhaled Oxygen Concentration - - Weight 67.1 kg (148 lb) 02/08/2023 2:54 AM DYE BLENDER Height 162.6 cm (5' 4 ) 02/08/2023 2:54 AM DYE BLENDER Body Mass Index 25.4 02/08/2023 2:54 AM DYE BLENDER Plan of Treatment Health Maintenance Due Date [...] 5:03 AM 11/28/2020 7:41 PM Care Teams Wheat Buyer Relationship Specialty Start Date End Date New Referring, Provider PCP - General UNKNOWN PHYSICIAN SPECIALTY 07/13/20
--- OUTSIDE RECORDS SUMMARY | 2024-04-26 19:05 | XMS_ITS | Encounter Summary ---
Author Organization [facility] Address [facility] [place] [address] Care Team Providers Care Return To Vendor Name Role Phone New Referring, Provider Primary Care Provider Un available Encounter Details Date Type Department Care Team (Late st Contact Info) Description 12/11/2020 Hospital Follow-up Call [facility] [place] [address] Kelly Sanchez, RN Social History Tobacco Use [...] Rule Out 12/16/2021 12/16/2021 12/16/2021 12:56 PM ARCHITECTURAL PROJECT MANAGER COVID-19 Rule Out 01/05/2023 01/06/2023 01/06/2023 1:05 AM ARCHITECTURAL PROJECT MANAGER documented as of this encounter Care Teams Return To Vendor Relationship Specialty Start Date End Date New Referring, Provider PCP - General UNKNOWN PHYSICIAN SPECIALTY 07/13/20 documented as of this encounter
--- OUTSIDE RECORDS SUMMARY | 2024-04-26 19:05 | XMS_ITS | Data Portability ---
Author Organization [place] [facility] [employer], Main Office Address [address] [place] [address] Assessment Encounter Date Assessment Date Assessment LastModified by Organization Details LastModified Time 01/27/2023 01/27/2023 Assessment: Nicotine Mild OSAHS, AHI = 8 PLMD Hypoventilation Plan: The following were reviewed and explained to the patient: primary care/referral note [facility] home sleep study 05/27/22 AHI = 8, [...] Follow-up: 1 week after titration sleep study [email or web address] Not available 01/27/2023 09:51:51 05/27/2023 05/27/2023 Assessment: Rhinitis Mild OSAHS, AHI = 8 Plan: The following were reviewed and explained to the patient: [facility] home sleep study 05/27/22 AHI = 8, supine AHI = 10 [facility] titration sleep study 05/15/23 sleep onset = [...] carrier. Patient will setup an appointment with [facility] for supplies and pressure adjustments. A major [...] 0.53 L (35%), DLCO 63%, DLCO/VA 80% [facility] home sleep study 05/27/22 AHI = 8, supine AHI = 10 [facility] titration sleep study 05/15/23 sleep onset = [...] carrier. Patient will setup an appointment with [facility] for supplies and pressure adjustments. A major [...] arnel, titration study - Auth approved, auth# [id number] 21, valid 01/27/23 - 11/28/232022 023 [facility], [address] [place], [address], 4 15:31:05 Medication Orders None recorded. Patient TargetsNo targets recorded. Patient InstructionsNo instructions recorded. Reason for Referral None Reported. Results Created Date Observation Date Name Description Value Unit Range Abnormal Flag Note LastModifiedBy Organization Detail LastModifiedTime 06/29/19 24 05/15/2023 polys omnog arnel, titra tion study No observ ation record ed. BARCODE [facility] [address] [place], [address], 06/29/2023 15:12:39 07/29/19 24 07/28/2023 compl ete PFT w/ post [place] hodil ator ashlie metry * No observ ation record ed. BARCODE Not Available 2023 12:22:29 Result Notes None recorded. 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 Procedures Surgical History None recorded. Imaging Results Imaging Date Name Status LastModified by Organization Details LastModified Time 05/15/2023 polysomnogram, titration study completed BARCODE [facility] [address] [place], [address], 06/29/2023 15:12:39 07/28/2023 complete PFT w/ post [...] Not Available Vitals Date Recorded Body weight Body mass index (BMI) Body height Body temperature Heart rate Oxygen saturation Oxygen saturation in Arterial blood by Pulse oximetry Systolic blood pressure Diastolic blood pressure Provider Name and Address Organization Details Last Updated DateTime 3 54322.6 7 g 25.4 kg/m2 162.56 cm 98.1 [degF] 76 /min 98 % 98 % 118 mm[Hg] 76 mm[Hg] Sandra Green MA [facility] [employer] [facility] 3 09:19:25 Date Recorded Heart rate Respiratory rate Provider N kings and Address Organization Details Last Updated DateTime 01/27/2023 76 /min 15 /min Rick Sargent MD [address], [place], [address], [facility] [employer] 01/27/2023 09:47:39 Date Recorded Body height Body mass index (BMI) Body weight Oxygen saturation Oxygen saturation in Arterial blood by Pulse oximetry Body temperature Systolic blood pressure Diastolic blood pressure Provider Name and Address Organization Details Last Updated DateTime 4 162.56 cm 24.2 kg/m2 19822.5 2 g 98 % 98 % 97.2 [degF] 120 mm[Hg] 76 mm[Hg] Jax Hairston CMA [facility] [employer] 4 09:35:32 Date Recorded Heart rate Heart rate Respiratory rate Provider Name and Address Organization Details Last Updated DateTime 05/27/2023 98 /min 98 /min 15 /min Rick Sargent MD [address], [place], [address], [facility] [employer] 05/27/2023 10:19:19 Date Recorded Body height Body mass index (BMI) Body weight Oxygen saturation Oxygen saturation in Arterial blood by Pulse oximetry Systolic blood pressure Diastolic blood pressure Provider Name and Address Organization Details Last Updated DateTime 4 162.56 cm 24.9 kg/m2 55041.8 9 g 98 % 98 % 118 mm[Hg] 68 mm[Hg] Jax Hairston CMA [facility] [employer] [facility] 4 15:26:25 Date Recorded Heart rate Heart rate Body temperature Respiratory rate Provider Name and Address Organization Details Last Updated DateTime 08/26/2023 108 /min 108 /min 98.1 [degF] 14 /min Rick Sargent MD [address] [facility], [facility] [address], [place], [address] , [employer] 08/26/2023 15:59:25 Social History Question Answer Notes LastModified by Organizat ion Details LastModified Time Tobacco Smoking Status Current Every Day Smoker Sandra Green MA null, [employer] 01/27/2023 09:15:26 What Is Your Level Of [...] Anxious, Or Unable To Sleep At Night)? [id number] Information not available 01/27/2023 Do You Use [...] SNOMED-CT Code Diagnosis ICD10 Code Diagnosis Note [id number] Rick Sargent MD [facility]_[place] [address] 01/27/2023 09:01:49 01/28/2023 08:54:47 Obstructive sleep apnea syndrome 81273499 G47.33 G47.36 G47.61 [id number] Rick Sargent MD [facility] [address] [address] 05/27/2023 09:22:09 05/28/2023 08:43:41 Obstructive sleep apnea syndrome 03551024 G47.33 [id number] Rick Sargent MD [facility]_[address] [address] 08/26/2023 15:07:03 08/27/2023 08:09:56 Obstructive sleep apnea syndrome 56511257 G47.33 Health Concerns Section Related Observation LastModified by Organization [employer]eta[employer] LastModified Time None Recorded Concern Status LastModified by Organization Details LastModified Time None Recorded Advance Directives Directive None Recorded Payers Encounter Date Sequence Insurance Name Policy Number Policy Cantu Covered Member ID Cantu Member ID Guarantor Name 01/27/2023 1 [place] 2020 (MEDICAID REPLACEMENT - HMO) Davida Mayer Juan [id number] Davida Mayer Juan 05/27/2023 1 [employer] AFTER [place] (MEDICAID REPLACEMENT - HMO) Davida Mayer Juan [id number] Davida Juan 08/26/2023 1 [place] 2020 (MEDICAID REPLACEMENT - HMO) Davida Juan [id number] Davida Juan Notes Date Note Type Note Provider Name and Address Organization Details Recorded Time 01/27/2023 text/html Primary care/Ref erring provider: Sammie Coates MD During the [facility] home sleep study on 05/27/22 AHI = [...] moderate chance of dozing. Rick Sargent MD [address] [place] [address], [address], [facility] [employer] 01/27/2023 09:58:37 05/27/2023 text/html Primary care/Ref erring provider: Zak Arauz MD; Sammie Coates MD During the [facility] home sleep study on 05/27/22 AHI = 8, supine AHI = 10. During the [facility] titration sleep study on 05/15/23, sleep onset = 17 minutes, REM onset = 185.5 minutes. The patient uses a [employer] AirSense 11 autoset unit with heated humidification. The patient does not need the ramp to start low and go up slowly on the pressure. There is no xerostomia in a.m. There is no hose/mask condensation with water. The patient wears a [employer] small Veronika nasal mask without chin strap. [...] chance of dozing. Rick Sargent MD [address], [facility] [address], [place], [address], [place] [facility] [employer] 06/11/2023 08:45:56 08/26/2023 text/html Primary care/Ref erring provider: Zak Arauz MD; Sammie Coates MD CC: My compliance rate is down as my older daughter won't go to sleep until late. During the [facility] home sleep study on 05/27/22 AHI = 8, supine AHI = 10. During the [facility] titration sleep study on 05/15/23, sleep onset [...] water. The patient wears a [employer] small Veronika nasal mask without chin strap. [...] chance of dozing. Rick Sargent MD [address] [facility], [place] [address], [place], [address], [place] [facility] [employer] 08/26/2023 16:07:27 OBGyn Episode No OBEpisode recorded.
--- OUTSIDE RECORDS SUMMARY | 2024-04-26 19:05 | XMS_ITS | CONTINUITY OF CARE DOCUMENT ---
Author Name jin abdi Address Unknown Organization [facility] Address [address] [place] [address] Phone [phone] Care Team Providers Care Legal Administrator Name Role Phone Sammie Coates MD Unavailable DASHAWN LOPEZ MD Unavailable [phone] DASHAWN LOPEZ MD Unavailable PROBLEMS Condition Status [...] In-person encounter Office Visit Sammie Coates MD [facility] - In-person encounter Office Visit Donnie Hawkins MD [facility] Cardiology examinationPregnancy with 35 completed weeks gestationSleep apnea, mildAnemia - In-person encounter Office Visit Sammie Coates MD [facility] DizzinessConstipation - In-person encounter Office Visit Sammie Coates MD [facility] - In-person encounter Office Visit Sammie Coates MD [facility] PalpitationChest painShortness of breathDepressionPregnancy with 35 [...] mclain Fisher blood pressure, systolic 118 mm[Hg] [facility] [place] oxygen saturation, oximetry 98 % Thais Fisher [...] revi ewed - no changes required Pebbles Crsos REAL ESTATE APPRAISER SUPERVISOR social history E&M S moking History: Richelle judd currently smokes every day. Pebbles Pachecori REAL ESTATE APPRAISER SUPERVISOR drug use no Pebbles Sanchezreri REAL ESTATE APPRAISER SUPERVISOR alcohol use no Pebbles Sanchezreri REAL ESTATE APPRAISER SUPERVISOR smoking status Current every day smoker V brent Pachecoparviz REAL ESTATE APPRAISER SUPERVISOR number of grandchildren Sammie Coates MD Pebbles Pachecori REAL ESTATE APPRAISER SUPERVISOR social history reviewed E&M revi ewed - no changes required Pebbles Pachecori REAL ESTATE APPRAISER SUPERVISOR social history E&M S moking History: Richelle judd is a former smoker. Pebbles Pachecori REAL ESTATE APPRAISER SUPERVISOR drug use no Pebbles Pachecori REAL ESTATE APPRAISER SUPERVISOR alcohol use no Pebbles Pachecori REAL ESTATE APPRAISER SUPERVISOR social history reviewed E&M revi ewed - no changes required Pebbles Pachecori INDER social history E&M S moking History: Richelle judd currently smokes every day. Pebbles Pachecoparviz LOVING smoking history, tot al pack/day 1 Niurka Bolaños cigarette use yes Niurka Bolaños smoking status Current every day smoker A andie Bolaños INSURANCE PROVIDERS Payer name Policy type / Coverage type [facility] green party ID AETNA [facility] Medicaid [id number] ADVANCE DIRECTIVES Name Date DISCUSSED - NO DECISION MADE TREATMENT PLAN Date Name Performer [id number],C, P binta still has palpitations off and [...] would recommend PCP follow up Brad Burrell [id number],C, P binta stil has chest pain HAS [...] GI to rule out GERD Brad Burrell [id number],C,H gb 9.9, this is likely culprit for her sxs, advised her to take her iron medication and follow up with TORQUE TESTER, PCP Brad Burrell [id number],C, P binta still experiencing shortness of breath [...] O ISSUES WITH PREGANCY HAD DELIVERED AT [facility] G ETS SOB WITH WALKING OR S TARTED SMOKING 2-3 PER DAY N O PRIOR HX OF ASTHMA December 25, 2022 S he continues to be SOB with very minimal exertion, differential dx related to pulmonary process vs anemia Brad Burrell [id number],C, M ild sleep apnea per ecent sleep study 05/2021. Autopap/Cpap recommended WILL ARRANGE FOR CPAP/AUTOPAP December 04, 2022 H as not been able to get for a sleep titration study due to lack of child day care teacher Pebbles Cross NP [id number],S,C ONCLUSIONS: 1 . Normal left ventricular systolic [...] Sammie Coates MD, FACC Pebbles Tay LOVING [id number],S, P atient still has palpitations off and [...] IF SHE HAS RECURRENT SVE Pebbles Cross REAL ESTATE APPRAISER SUPERVISOR [id number],C, T he Patient was encouraged to stop smoking. Pebbles Cross REAL ESTATE APPRAISER SUPERVISOR [id number],S,N EEDS TO SEE GI SHE HAD NATURAL CHILDBIRTH AND HAS NOTICED ISSUES WIHT BM SINCE DELIVERY Pebbles Cross REAL ESTATE APPRAISER SUPERVISOR [id number],S, P atient still experiencing shortness of breath [...] O ISSUES WITH PREGANCY HAD DELIVERED AT [facility] G ETS SOB WITH WALKING OR S TARTED SMOKING 2-3 PER DAY N O PRIOR HX OF ASTHMA Pebbles Cross REAL ESTATE APPRAISER SUPERVISOR [id number],S, P atvivek stil has chest pain HAS HIATIAL HERNIA AND OR ACID REFLUX O K FOR MALLOX OR MYLANTA December 04, 2022 P binta reports sharp/stabbing mostly R sided chest pains S USPECT REPRODUCIBLE CP THE MAIN ISSUE SHE IS ALSO PENDING A GI W/U IN ISAIAH Cross REAL ESTATE APPRAISER SUPERVISOR [id number],C,Flow murmur n oted on exam Pebbles Cross REAL ESTATE APPRAISER SUPERVISOR [id number],C,P atvivek still has palpitations off and on [...] ocumented as isolated beats. Pebbles Sanchezdinah LOVING [id number],Russell,P binta still experiencing shortness of breath S [...] adequately assess the RVSP. Pebbles Tay LOVING [id number],C,M ild sleep apnea per ecent sleep study 05/2021. Autopap/Cpap recommended WILL ARRANGE FOR CPAP/AUTOPAP Pebbles Sanchezdinah LOVING [id number],Russell,P binta stil has chest pain HAS HIATIAL HERNIA AND OR ACID REFLUX O K FOR MALLOX OR MYLANTA Whitneyladonna Sanchezdinah LOVING [id number],C,T he Patient was encouraged to stop smoking. Pebbles Cross NP [id number],S,M AY BE MURMUR ASSOCIATED WITH WILL GET ECHO DONE Pebbles Cross REAL ESTATE APPRAISER SUPERVISOR [id number],S,P binta has had chest discomfort throughout her H HAD CHEST PAINS BEFORE LASTS FOR 5MIN AND ARE RECURRENT D OESNT RECALL HAVING ISSUES WITH FIRST Pebbles Cross REAL ESTATE APPRAISER SUPERVISOR [id number],S,P binta has been experiencing shortness of breath associated with chest discomfort throughout her G ETS SOB RECALLS WITH FIRST M AY BE RELATED TO ANEMIA A ND SMOKING M AY BE HAVING SLEEP APNEA Pebbles Pachecoparviz REAL ESTATE APPRAISER SUPERVISOR [id number],C,E KG n office today shows Sinus Tachycardia W ILL ARRANGE FOR TELE MONITOR FOR 2 WKS C HECK ECHO FOR MVP HAS MURMUR ON EXAM MAY BE FLOW RELATED MURMUR FROM Pebbles Pachecoparviz LOVING [id number],C,S inus Tachycardia per EKG in office today. C HECK FOR ANEMIA P T LOOKS PALE M AY NEED ADDITIONAL IRON SUPPLEMENTATION Pebbles Pachecoparviz LOVING Cardiology:F/u with PCP regarding anemia. Prior workup showed H gb 9.9, this is likely culprit for her sxs, advised her to take her iron medication and follow up with TORQUE TESTER, PCP Sammie Coates MD Cardiology: T he Patient was encouraged to stop smoking. Sammie Coates MD Cardiology: M ild sleep apnea per ecent sleep study 05/2021. Autopap/Cpap recommended WILL ARRANGE FOR CPAP/AUTOPAP December 04, 2022 H as not been able to get for a sleep titration study due to lack of child day care teacher Sammie Coates MD Cardiology:Repeat sl eep study [...] her iron medication and follow up with TORQUE TESTER, PCP Brad Burrell Electrophysiology: Richelle judd still [...] O ISSUES WITH PREGANCY HAD DELIVERED AT [facility] G ETS SOB WITH WALKING OR S [...] titration study due to lack of child day care teacher Pebbles Cross NP Cardiology:CONCLUSIO NS: 1 . [...] O ISSUES WITH PREGANCY HAD DELIVERED AT [facility] G ETS SOB WITH WALKING OR S [...] AY NEED ADDITIONAL IRON SUPPLEMENTATION Pebbles Sanchezdinah REAL ESTATE APPRAISER SUPERVISOR Date Name Sleep Study Holter Monitor 48 [...]
== END 2024-04-26 17:00 | disposition left against medical advice (07) ==
LOC: ANHED 19:02
PROVIDERS: Emergency Provider Physician Assistant; PCP Internal Medicine Infectious Disease
DX: R07.89 Other chest pain (principal); F17.210 Nicotine dependence, cigarettes, uncomplicated; R94.31 Abnormal electrocardiogram [ECG] [EKG]
CPT/HCPCS: 71046; 93005; 99283

== ENCOUNTER 2024-05-13 16:05 | Emergency (ER) | payer MEDICAID, SELFPAY ==
--- NOTE | ~2024-05-13 | US_ITS ---
EXAMINATION: US OB <= 14 weeks fetus INDICATION: ECTOPIC TECHNIQUE: Sonography of the pelvis was performed by transabdominal and transvaginal techniques. COMPARISON: None. RESULT: Uterus: 10.5 x 5.0 x 6.7 cm. Anteverted. Homogenous myometrium. Intrauterine gestational sac: Single present. Mean Sac Diameter: 0.7 cm, corresponding gestational age 5 week 3 days. Yolk sac: Not visualized. Embryo: Not seen. Subgestational hematoma: Absent . Right ovary: 3.2 x 1.4 x 3 cm. Vascular flow is present. No adnexal mass. Left ovary: 3.5 x 2.1 x 2.5 cm. Vascular flow is present. No adnexal mass. Pelvis free fluid: None. IMPRESSION: Intrauterine of uncertain viability, probably due to early gestational age. Recommend close clinical and sonographic follow-up. Estimated Gestational Age: 5 weeks, 3 days by mean gestational sac diameter. NENA by ultrasound 2024. Reviewed, dictated and finalized at location K. IMPRESSION: Intrauterine of uncertain viability, probably due to early gestationa l age. Recommend close clinical and sonographic follow-up. Estimated Gestational Age: 5 weeks, 3 days by mean gestational sac diameter. E DD by ultrasound 01/10/2025.
[2024-05-13 16:07] VITALS: BP 131/60; PULSE 126; RESP 18; TEMP 36.6; O2SAT 100
--- OUTSIDE RECORDS SUMMARY | 2024-05-13 16:08 | XMS_ITS | Data Portability ---
Author Organization [employer] , [facility]_Jason Address [address] [place] [address] Assessment Encounter Date Assessment Date Assessment LastModified [...] Organization Details Last Modified Time Details Appointments [facility] NURSE SONO 30 2024 01:30P M Ultrasound [place] 3 Not available Not available Not available [facility]ACT[facility] NURSE EST 2024 02:15P M DARNELL TRAMMELL, [employer] Not available Not available Not available Lab pregn love test, urine 2023 024 [email or web address] [facility], [address] [place], [address], 12/23/2023 12:17:59 beta- HCG, quant itati ve, serum or plasm a 2023 024 GRESHAM [facility], [address] [place], [address], 12/24/2023 11:22:59 CBC w/ auto diff 2023 024 GRESHAM [facility], [address] [place] [address], [address], 12/24/2023 16:24:37 urina lysis , dipst ick 2023 024 [email or web address] [facility], [address] [place], [address], 11/03/2023 15:41:36 cultu re, urine 2023 024 [employer] [facility], [address] [place], [address], 11/05/2023 03:44:30 bacte rial vagin osis + vagin itis panel , vagin al 2023 024 [facility], [address] [place] [address], [address], 11/05/2023 15:02:47 unlis dima lab - STD jackeline rizzo (hc ) 2023 024 [facility], [address] [place] [address], [address], 11/04/2023 18:03:53 cultu re, urine 2023 024 [employer] [facility], [address] [place], [address], 09/27/2023 13:18:17 urina lysis compl ete, refle x cultu re 2023 024 [email or web address] [facility], [address] [place], [address], 10/19/2023 17:10:39 bacte rial vagin osis + vagin itis panel , vagin al 2023 024 [facility], [address] [place] [address], [address], 09/24/2023 13:26:12 iron + total iron- justine ng capac ity (TIBC ), serum 2023 024 [facility] [facility], [address] [place], [address], 09/27/2023 13:18:14 trans fili n, serum 2023 024 GRESHAM [facility], [address] [place], [address], 09/27/2023 13:18:15 fili tin, serum or plasm a 2023 024 KATHLEEN [facility], [address] [place], [address], 09/27/2023 13:18:16 iron, serum [email or web address] [place] [address], [address] [place], [address], 10/19/2023 17:10:39 hemog lobin opath y profi le, blood 2023 024 [employer] [facility], [address] [place], [address], 09/27/2023 13:18:16 CBC w/ auto diff 2023 024 GR[facility] [facility], [address] [place], [address], 09/24/2023 11:58:37 bacte rial vagin osis + vagin itis panel , vagin al 2023 024 GRESHAM [employer] [facility], [address] [place], [address], 02/25/2023 14:29:51 prola ctin, serum 2023 024 [facility], [address] [place], [address], 02/24/2023 10:55:59 TSH, serum , refle x free T4 2023 024 [facility], [address] [place], [address], 02/24/2023 10:56:00 Referral None recor ded. Procedures None recor ded. Surgeries None recor ded. Imaging US, trans vagin al 2023 024 [email or web address] Not available 12/23/2023 14:19:37 US, trans vagin al 2023 024 KATHLEEN Not available 11/05/2023 07:06:51 Medication Orders trane xamic acid 650 mg table t 2023 024 [email or web address] [facility]acy #[id number], [address], [place], [address], 12/23/2023 11:28:23 Prena jani 28 mg iron- 800 mcg table t [address] [facility] [place]Pharmacy #[id number], [address], [place], [address], 12/23/2023 11:28:21 ibupr ofen 800 mg table t [address] [facility] ([place] [place]Pharmacy #[id number], [address], [address], 09/23/2023 15:05:11 Patient TargetsNo targets recorded. Patient Instructions Encounter Date Encounter Id Patient Instructions Last Modified By Organization Details Last Modified Time 09/23/2023 [id number] Urinary Tract Infection (UTI) in Women: Care Instructions [email or web address] Not available 09/23/2023 16:06:56 Reason for Referral None Reported. Results Created Date Observation Date Name Description Value Unit Range Abnormal Flag Note LastModifiedBy Organization Detail LastModifiedTime 01/26/20 23 01/27/2023 CULTU RE, URINE , ROUTI NE culture, urine, routine SEE NOTE CULTU RE, URINE , ROUTI NE Micro Numbe r: [id number] Test Statu s: Final Speci men [...] Tube, is recom sylvie d. Not Available [facility] [address] [place], [address], 01/27/2023 01:04:47 01/26/20 23 01/27/2023 VAGIN ITIS PLUS STD PANEL bacterial vaginosis BV POS negati ve abnormal Not Available [address], [address], 01/27/2023 14:07:48 01/26/20 23 01/27/2023 VAGIN ITIS PLUS STD PANEL austin species C. spp neg negati ve normal Not Available [address], [address], 01/27/2023 14:07:48 01/26/20 23 01/27/2023 VAGIN ITIS PLUS STD PANEL austin glabrata C. gla neg negati ve normal Not Available [address], [address], 01/27/2023 14:07:48 01/26/20 23 01/27/2023 VAGIN ITIS PLUS STD PANEL trichomonas vaginalis CV/TV TRICH neg negati ve normal Not Available [address], [address], 01/27/2023 14:07:48 01/26/20 23 01/27/2023 VAGIN ITIS PLUS STD PANEL chlamydia trachomatis CT neg negati ve normal This repor t is inten ded for us in clini tana monit oring and manag ement of patie nts. It is not inten ded for use in medic al-le gal appli catio n. Not Available [address], [address], 01/27/2023 14:07:48 01/26/20 23 01/27/2023 VAGIN ITIS PLUS STD PANEL neisseria gonorrhoeae GC neg negati ve normal This repor t is inten ded for us in clini tana monit oring and manag ement of patie nts. It is not inten ded for use in medic al-le gal appli catio n. Not Available [facility] [address] [place], [address], 01/27/2023 14:07:48 02/23/19 24 02/24/2023 PROLA CTIN prolactin 16.1 NG/mL Refer ence Range s Femal e aged 18-Ad ult Nonpr egnan t: 2.8-2 9.2 ng/mL Pregn ant: 9.7-2 08.5 ng/mL Post- menop ausal : 1.8-2 0.3 ng/mL Pregn love, lacta tion, and the admin istra tion of oral contr acept michaela can incre ase prola ctin lizette ntrat ions. Not Available [facility] [address] [place], [address], 02/24/2023 10:55:59 02/23/19 24 02/24/2023 TSH W/ REFLE X TSH 1.23 mIU/L 0.55 - 4.78 normal Refer ence Range Femal e aged 18-Ad ult: 0.55- 4.78 Pregn love Refer ence Range s First Trime ster 0.26- 2.66 Secon d Trime ster 0.55- 2.73 Third Trime ster 0.43- 2.91 Not Available [facility] [address] [place], [address], 02/24/2023 10:56:00 02/23/19 24 02/25/2023 VAGIN ITIS PLUS STD PANEL bacterial vaginosis BV POS negati ve abnormal Not Available [facility] [address] [place], [address], 02/25/2023 14:29:51 02/23/19 24 02/25/2023 VAGIN ITIS PLUS STD PANEL austin species C. spp POS negati ve abnormal Not Available [address], [address], 02/25/2023 14:29:51 02/23/19 24 02/25/2023 VAGIN ITIS PLUS STD PANEL austin glabrata C. gla neg negati ve normal Not Available [address], [address], 02/25/2023 14:29:51 02/23/19 24 02/25/2023 VAGIN ITIS PLUS STD PANEL trichomonas vaginalis CV/TV TRICH neg negati ve normal Not Available [address], [address], 02/25/2023 14:29:51 02/23/19 24 02/25/2023 VAGIN ITIS PLUS STD PANEL chlamydia trachomatis CT neg negati ve normal This repor t is inten ded for us in clini tana monit oring and manag ement of patie nts. It is not inten ded for use in medic al-le gal appli catio n. Not Available [address], [address], 02/25/2023 14:29:51 02/23/19 24 02/25/2023 VAGIN ITIS PLUS STD PANEL neisseria gonorrhoeae GC neg negati ve normal This repor t is inten ded for us in clini tana monit oring and manag ement of patie nts. It is not inten ded for use in medic al-le gal appli catio n. Not Available [address], [address], 02/25/2023 14:29:51 09/23/19 24 09/24/2023 CBC (INCL UDES DIFF/ PLT) WBC 8.4 thous and/u L 4.0 - 9.8 normal Not Available [address], [address], 09/24/2023 11:58:37 09/23/19 24 09/24/2023 CBC (INCL UDES DIFF/ PLT) RBC 4.5 kimberley on/uL 3.9 - 4.9 normal Not Available [address], [address], 09/24/2023 11:58:37 09/23/19 24 09/24/2023 CBC (INCL UDES DIFF/ PLT) hemoglobin 12.4 g/dL 11.8 - 14.8 normal Not Available [address], [address], 09/24/2023 11:58:37 09/23/19 24 09/24/2023 CBC (INCL UDES DIFF/ PLT) hematocrit 38.7 % 35.5 - 44.0 normal Not Available [address], [address], 09/24/2023 11:58:37 09/23/19 24 09/24/2023 CBC (INCL UDES DIFF/ PLT) MCV 86.4 fL 82.0 - 99.0 normal Not Available [address], [address], 09/24/2023 11:58:37 09/23/19 24 09/24/2023 CBC (INCL UDES DIFF/ PLT) MCH 27.7 pg 27.2 - 32.6 normal Not Available [address], [address], 09/24/2023 11:58:37 09/23/19 24 09/24/2023 CBC (INCL UDES DIFF/ PLT) MCHC 32.0 g/dL 31.5 - 35.5 normal Not Available [address], [address], 09/24/2023 11:58:37 09/23/19 24 09/24/2023 CBC (INCL UDES DIFF/ PLT) RDW-CV 14.4 % 11.5 - 14.5 normal Not Available [address], [address], 09/24/2023 11:58:37 09/23/19 24 09/24/2023 CBC (INCL UDES DIFF/ PLT) platelet 298 thous and/u L 140 - 350 normal Not Available [address], [address], 09/24/2023 11:58:37 09/23/19 24 09/24/2023 CBC (INCL UDES DIFF/ PLT) MPV 11.2 fL 9.3 - 12.4 normal Not Available [address], [address], 09/24/2023 11:58:37 09/23/19 24 09/24/2023 CBC (INCL UDES DIFF/ PLT) absolute neutrophil 5.03 thous and/u L 1.90 - 7.00 normal Not Available [address], [address], 09/24/2023 11:58:37 09/23/19 24 09/24/2023 CBC (INCL UDES DIFF/ PLT) absolute lymphocyte 2.39 thous and/u L 0.70 - 4.50 normal Not Available [address], [address], 09/24/2023 11:58:37 09/23/19 24 09/24/2023 CBC (INCL UDES DIFF/ PLT) absolute monocyte 0.61 thous and/u L 0.10 - 1.30 normal Not Available [address], [address], 09/24/2023 11:58:37 09/23/19 24 09/24/2023 CBC (INCL UDES DIFF/ PLT) absolute eosinophil 0.32 thous and/u L <0.70 normal Not Available [address], [address], 09/24/2023 11:58:37 09/23/19 24 09/24/2023 CBC (INCL UDES DIFF/ PLT) absolute basophil 0.04 thous and/u L <0.20 normal Not Available [address], [address], 09/24/2023 11:58:37 09/23/19 24 09/24/2023 CBC (INCL UDES DIFF/ PLT) absolute immature granulocyte 0.02 thous and/u L <0.03 normal Not Available [address], [address], 09/24/2023 11:58:37 09/23/19 24 09/24/2023 VAGIN ITIS PLUS STD PANEL bacterial vaginosis BV POS negati ve abnormal Not Available [address], [address], 09/24/2023 13:26:12 09/23/19 24 09/24/2023 VAGIN ITIS PLUS STD PANEL austin species C. spp POS negati ve abnormal Not Available [address], [address], 09/24/2023 13:26:12 09/23/19 24 09/24/2023 VAGIN ITIS PLUS STD PANEL austin glabrata C. gla neg negati ve normal Not Available [address], [address], 09/24/2023 13:26:12 09/23/19 24 09/24/2023 VAGIN ITIS PLUS STD PANEL trichomonas vaginalis CV/TV TRICH neg negati ve normal Not Available [address], [address], 09/24/2023 13:26:12 09/23/19 24 09/24/2023 VAGIN ITIS PLUS STD PANEL chlamydia trachomatis CT neg negati ve normal This repor t is inten ded for us in clini tana monit oring and manag ement of patie nts. It is not inten ded for use in medic al-le gal appli catio n. Not Available [address], [address], 09/24/2023 13:26:12 09/23/19 24 09/24/2023 VAGIN ITIS PLUS STD PANEL neisseria gonorrhoeae GC neg negati ve normal This repor t is inten ded for us in clini tana monit oring and manag ement of [facility]. It is not inten ded for use in medic al-le gal appli catio n. Not Available [facility] [address] [place], [address], 09/24/2023 13:26:12 09/23/19 24 09/27/2023 IRON AND TOTAL IRON JUSTINE NG CAPAC ITY iron, total 35 mcg/d L 40-190 low Not Available [facility] [place] [address] [place], [address], 09/27/2023 13:18:14 09/23/19 24 09/27/2023 IRON AND TOTAL IRON JUSTINE NG CAPAC ITY iron binding capacity 452 mcg/d L_(ca lc) 250-45 0 high Not Available [facility] [address], [address], 09/27/2023 13:18:14 09/23/19 24 09/27/2023 IRON AND TOTAL IRON JUSTINE NG CAPAC ITY % saturation 8 %_(ca lc) 16-45 low Not Available [address], [address], 09/27/2023 13:18:14 09/23/19 24 09/27/2023 URINA LYSIS , COMPL ETE color TNP TEST NOT PERFO RMED No suita ble speci men recei kailee. Pleas e revie w the test requi remen ts at testd irect ory.q uestd iagno [employer] .com Not Available [facility] [address] [place], [address], 09/27/2023 13:18:15 0809/27/2023 TRANS FILI N transferrin 353 mg/dL 188-34 1 high Not Available [address], [address], 09/27/2023 13:18:15 09/23/19 24 09/27/2023 HEMOG LOBIN OPATH Y EVALU ATION red blood cell count 4.56 kimberley on/uL 3.80-5 .10 Not Available [address], [address], 09/27/2023 13:18:16 09/23/1909/27/2023 HEMOG LOBIN OPATH Y EVALU ATION hemoglobin 12.5 g/dL 11.7-1 5.5 Not Available [address], [address], 09/27/2023 13:18:16 09/23/1909/27/2023 HEMOG LOBIN OPATH Y EVALU ATION hematocrit 41.5 % 35.0-4 5.0 Not Available [address], [address], 09/27/2023 13:18:16 09/23/19 24 09/27/2023 HEMOG LOBIN OPATH Y EVALU ATION MCV 91.0 fL 80.0-1 00.0 Not Available [address], [address], 09/27/2023 13:18:16 09/23/19 24 09/27/2023 HEMOG LOBIN OPATH Y EVALU ATION MCH 27.4 pg 27.0-3 3.0 Not Available [address], [address], 09/27/2023 13:18:16 09/23/19 24 09/27/2023 HEMOG LOBIN OPATH Y EVALU ATION RDW 14.1 % 11.0-1 5.0 Not Available [address], [place], [address], 09/27/2023 13:18:16 09/23/19 24 09/27/2023 HEMOG LOBIN OPATH Y EVALU ATION hemoglobin A 97.4 % >96.0 Not Available [address] [place], [address], 09/27/2023 13:18:16 09/23/1909/27/2023 HEMOG LOBIN OPATH Y EVALU ATION hemoglobin F <1.0 % <2.0 Not Available [facility] [address], [address], 09/27/2023 13:18:16 09/23/1909/27/2023 HEMOG LOBIN OPATH Y EVALU ATION hemoglobin A2 (quant) 2.6 % 2.0-3. 2 Not Available [address], [address], 09/27/2023 13:18:16 09/23/1909/27/2023 HEMOG LOBIN OPATH Y EVALU ATION interpretati on Maddie l pheno type. Maddie l hemog lobin distr ibuti on, no HgS, HgC or other abnor mal hemog lobin obser kailee. Not Available [address], [address], 09/27/2023 13:18:16 09/23/19 24 09/27/2023 FILI TIN ferritin 12 NG/mL 16-154 low Not Available [address], [address], 09/27/2023 13:18:16 09/23/1909/27/2023 CULTU RE, URINE , ROUTI NE culture, urine, routine SEE NOTE CULTU RE, URINE , ROUTI NE Micro Numbe r: [id number] Test Statu s: Final Speci men [...] Cultu re Trans port Tube. Not Available [facility] [address] [place], [address], 09/27/2023 13:18:17 11/03/19 24 11/04/2023 STD [facility] ([facility] ) hep BS Ag Non-Re active non-re active normal Not Available [address], [address], 11/04/2023 18:03:53 11/03/19 24 11/04/2023 STD [facility] ([facility] ) hep C Ab Non-Re active non-re active normal Not Available [address], [address], 11/04/2023 18:03:53 11/03/19 24 11/04/2023 STD [facility] ([facility] ) HIV 1/2 Ag/Ab Non-Re active non-re active normal Not Available [address], [address], 11/04/2023 18:03:53 11/03/19 24 11/04/2023 STD [facility] ([facility] ) syphilis Ab Non-Re active non-re active normal Not Available [address], [address], 11/04/2023 18:03:53 11/03/19 24 11/05/2023 CULTU RE, URINE , ROUTI NE culture, urine, routine SEE NOTE CULTU RE, URINE , ROUTI NE Micro Numbe r: [id number] Test Statu s: Final Speci men Sourc e: Urine Speci men Quali ty: Adequ ate Resul t: No Growt h Not Available [facility] [address] [place], [address], 11/05/2023 03:44:30 11/03/19 24 11/05/2023 VAGIN ITIS PLUS STD PANEL bacterial vaginosis BV neg negati ve normal Not Available [address], [address], 11/05/2023 15:02:46 11/03/19 24 11/05/2023 VAGIN ITIS PLUS STD PANEL austin species C. spp neg negati ve normal Not Available [facility] [address] [place] [address], [address], 11/05/2023 15:02:46 11/03/19 24 11/05/2023 VAGIN ITIS PLUS STD PANEL austin glabrata C. gla neg negati ve normal Not Available [address], [address], 11/05/2023 15:02:46 11/03/19 24 11/05/2023 VAGIN ITIS PLUS STD PANEL trichomonas vaginalis CV/TV TRICH neg negati ve normal Not Available [address], [address], 11/05/2023 15:02:46 11/03/19 24 11/05/2023 VAGIN ITIS PLUS STD PANEL chlamydia trachomatis CT neg negati ve normal This repor t is inten ded for us in clini tana monit oring and manag [facility]. It is not inten ded for use in medic al-le gal appli catio n. Not Available [facility] [address] [place], [address], 11/05/2023 15:02:46 11/03/19 24 11/05/2023 VAGIN ITIS PLUS STD PANEL neisseria gonorrhoeae GC neg negati ve normal This repor t is inten ded for us in clini tana monit oring and manag ement of patie nts. It is not inten ded for use in medic al-le gal appli catio n. Not Available [facility] [address] [facility], [place], [address], 11/05/2023 15:02:46 11/03/19 24 11/03/2023 urina lysis , dipst ick Leukocytes Negati ve Not Available [address], [place], [address], 11/03/2023 15:15:56 11/03/1911/03/2023 urina lysis , dipst ick Nitrite negati ve Not Available [address], [place], [address], 11/03/2023 15:15:56 11/03/19 24 11/03/2023 urina lysis , dipst ick Urobilinogen .2 Not Available [address], [place], [address], 11/03/2023 15:15:56 11/03/1911/03/2023 urina lysis , dipst ick Protein Trace Not Available [address], [place], [address], 11/03/2023 15:15:56 11/03/19 24 11/03/2023 urina lysis , dipst ick pH 7.0 Not Available [address], [place], [address], 11/03/2023 15:15:56 11/03/1911/03/2023 urina lysis , dipst ick Blood Modera te Not Available [address], [place], [address], 11/03/2023 15:15:56 11/03/19 24 11/03/2023 urina lysis , dipst ick Specific [place] 1.015 Not Available [address], [place], [address], 11/03/2023 15:15:56 11/03/1911/03/2023 urina lysis , dipst ick Ketone Trace Not Available [address], [place], [address], 11/03/2023 15:15:56 11/03/1911/03/2023 urina lysis , dipst ick Bilirubin Negati ve Not Available [address], [place], [address], 11/03/2023 15:15:56 11/03/1911/03/2023 urina lysis , dipst ick Glucose Negati ve Not Available [address], [place], [address], 11/03/2023 15:15:56 11/03/1911/03/2023 urina lysis , dipst ick Appearance Clear Not Available [address], [place], [address], 11/03/2023 15:15:56 11/03/1911/03/2023 urina lysis , dipst ick Color Pale Yellow Not Available [address], [place], [address], 11/03/2023 15:15:56 12/23/1912/24/2023 HCG, TOTAL , QUANT [...] has not been valid ated by the saw actur er of this assay . Not Available [address], [address], 12/24/2023 11:22:59 12/23/19 24 12/24/2023 CBC (INCL UDES DIFF/ PLT) WBC 5.5 thous and/u L 4.0 - 9.8 normal Not Available [address], [address], 12/24/2023 16:24:37 12/23/19 24 12/24/2023 CBC (INCL UDES DIFF/ PLT) RBC 4.4 kimberley on/uL 3.9 - 4.9 normal Not Available [address], [address], 12/24/2023 16:24:37 12/23/19 24 12/24/2023 CBC (INCL UDES DIFF/ PLT) hemoglobin 12.1 g/dL 11.8 - 14.8 normal Not Available [address], [address], 12/24/2023 16:24:37 12/23/19 24 12/24/2023 CBC (INCL UDES DIFF/ PLT) hematocrit 38.2 % 35.5 - 44.0 normal Not Available [address], [address], 12/24/2023 16:24:37 12/23/19 24 12/24/2023 CBC (INCL UDES DIFF/ PLT) MCV 87.4 fL 82.0 - 99.0 normal Not Available [address], [address], 12/24/2023 16:24:37 12/23/19 24 12/24/2023 CBC (INCL UDES DIFF/ PLT) MCH 27.7 pg 27.2 - 32.6 normal Not Available [address], [address], 12/24/2023 16:24:37 12/23/19 24 12/24/2023 CBC (INCL UDES DIFF/ PLT) MCHC 31.7 g/dL 31.5 - 35.5 normal Not Available [address], [address], 12/24/2023 16:24:37 12/23/19 24 12/24/2023 CBC (INCL UDES DIFF/ PLT) RDW-CV 13.0 % 11.5 - 14.5 normal Not Available [address], [address], 12/24/2023 16:24:37 12/23/19 24 12/24/2023 CBC (INCL UDES DIFF/ PLT) platelet 280 thous and/u L 140 - 350 normal Not Available [address], [address], 12/24/2023 16:24:37 12/23/19 24 12/24/2023 CBC (INCL UDES DIFF/ PLT) MPV 11.5 fL 9.3 - 12.4 normal Not Available [address], [address], 12/24/2023 16:24:37 12/23/19 24 12/24/2023 CBC (INCL UDES DIFF/ PLT) absolute neutrophil 2.62 thous and/u L 1.90 - 7.00 normal Not Available [address], [address], 12/24/2023 16:24:37 12/23/19 24 12/24/2023 CBC (INCL UDES DIFF/ PLT) absolute lymphocyte 2.12 thous and/u L 0.70 - 4.50 normal Not Available [address], [address], 12/24/2023 16:24:37 12/23/19 24 12/24/2023 CBC (INCL UDES DIFF/ PLT) absolute monocyte 0.46 thous and/u L 0.10 - 1.30 normal Not Available [address], [address], 12/24/2023 16:24:37 12/23/19 24 12/24/2023 CBC (INCL UDES DIFF/ PLT) absolute eosinophil 0.21 thous and/u L <0.70 normal Not Available [address], [address], 12/24/2023 16:24:37 12/23/19 24 12/24/2023 CBC (INCL UDES DIFF/ PLT) absolute basophil 0.03 thous and/u L <0.20 normal Not Available [address], [address], 12/24/2023 16:24:37 12/23/19 24 12/24/2023 CBC (INCL UDES DIFF/ PLT) absolute immature granulocyte 0.02 thous and/u L <0.03 normal Not Available [address], [address], 12/24/2023 16:24:37 12/23/19 24 12/23/2023 pregn love test, urine HCG negati ve Not Available [facility] [address] [place], [address], 12/23/2023 11:39:47 11/05/19 24 11/03/2023 US, trans vagin al No observ ation record ed. [email or web address] [address], [place], [address], 11/08/2023 17:34:32 12/23/19 24 12/23/2023 US, trans vagin al No observ ation record ed. [email or web address] [address], [place], [address], 12/24/2023 09:52:08 Result Notes None recorded. Problems [...] : NO ProblemS tatus: Resolve Not Available [facility] 2 20:44:50 Hypertro phy of clitoris [id number] Completed 202010/15/2020 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 ; Progress : Stable Added By: Charity Villalobos Add to Current Problems : NO ProblemS tatus: Resolve Not Available [facility] 2 20:44:52 Clinical finding Completed 202010/15/2020 state, incident al; Progress : Stable Added By: Bala Grant Add to Current Problems : NO ProblemS tatus: Resolve Not Available [facility] 2 14:41:03 Gestatio n period, 17 weeks [id number] Completed 202008/06/2020 17 weeks gestatio n of pregnanc y; Progress : Stable Added By: Cecilia Anne Add to Current Problems : NO ProblemS tatus: Resolve Not Available [facility] 2 20:44:50 Pregnanc y, childbir th and puerperi um finding Completed 202006/18/2020 Encounte r for supervis ion of normal first pregnanc y, first trimeste r; Progress : Stable Added By: Cecilia Anne Add to Current Problems : NO ProblemS tatus: Resolve Not Available [facility] 2 20:44:51 Syphilis test finding [id number] Completed 202008/06/2020 Encounte r for screenin g for infectio ns with a predomin antly sexual mode of transmis mp; Progress : Stable Added By: Mariely Shaffer Add to Current Problems : NO ProblemS tatus: Resolve Not Available [facility] 2 20:44:[address] Concept Completed 202010/15/2020 Decrease d movement s, third trimeste r, fetus 1; Progress : Stable Added By: Lindy Oropeza Add to Current Problems : NO ProblemS tatus: Resolve Not Available [facility] 2 20:44:49 Gestatio n period, 27 weeks [id number] Completed 202010/15/2020 27 weeks gestatio n of pregnanc y; Progress : Stable Added By: Charity Villalobos Add to Current Problems : NO ProblemS tatus: Resolve Not Available [facility] 2 20:44:48 Gestatio n period, 24 weeks [id number] Completed 202010/15/2020 24 weeks gestatio n of pregnanc y; Progress : Stable Added By: Paige Rogers Add to Current Problems : NO ProblemS tatus: Resolve Not Available [facility] 2 14:41:04 Sampling of vagina for Papanico laou smear Completed 202006/18/2020 Encounte r for gynecolo gical examinat ion (general ) (routine ) without abnormal findings ; Progress : Stable Added By: Cecilia Anne Add to Current Problems : NO ProblemS tatus: Resolve Not Available [facility] 2 20:44:51 Disorder of upper respirat ory system [id number] Completed 202010/15/2020 Acute upper respirat ory infectio n, unspecif ied; Progress : Stable Added By: Bala Grant Add to Current Problems : NO ProblemS tatus: Resolve Not Available [facility] 2 14:41:03 Gestatio n period, 28 weeks 69200394 Completed 202010/15/2020 28 weeks gestatio n of pregnanc y; Progress : Stable Added By: Leona Tavares Add to Current Problems : NO ProblemS tatus: Resolve Not Available [facility] 2 20:44:52 Gestatio n period, 20 weeks 94063807 Completed 202008/06/2020 20 weeks gestatio n of pregnanc y; Progress : Stable Added By: Griselda Daly Add to Current Problems : NO ProblemS tatus: Resolve Not Available [facility] 2 20:44:49 Gestatio n period, 8 weeks 59661922 Completed 202006/18/2020 8 weeks gestatio n of pregnanc y; Progress : Stable Added By: Cecilia Anne Add to Current Problems : NO ProblemS tatus: Resolve Not Available [facility] 2 20:44:48 Gestatio n period, 32 weeks 9197508 Completed 202010/15/2020 32 weeks gestatio n of pregnanc y; Progress : Stable Added By: Mattie Plasencia Add to Current Problems : NO ProblemS tatus: Resolve Not Available [facility] 2 20:44:[address] Concept Completed 202010/15/2020 Decrease d movement s, third trimeste r, not applicab le or unspecif ied; Progress : Stable Added By: Eduardo Rios Add to Current Problems : NO ProblemS tatus: Resolve Not Available [facility] 2 20:44:47 Gestatio n period, 30 weeks 07705107 Completed 202010/15/2020 30 weeks gestatio n of pregnanc y; Progress : Stable Added By: Leona Tavares Add to Current Problems : NO ProblemS tatus: Resolve Not Available [facility] 2 20:44:48 Antenata l screenin g for malforma tion Completed 202008/06/2020 Encounte r for antenata l screenin g for malforma tions; Progress : Stable Added By: Griselda Daly Add to Current Problems : NO ProblemS tatus: Resolve Not Available [facility] 2 20:44:47 Screenin g for malignan t neoplasm of cervix Completed 202006/18/2020 Encounte r for screenin g for malignan t neoplasm of cervix; Progress : Stable Added By: Cecilia Anne Add to Current Problems : NO ProblemS tatus: Resolve Not Available [facility] 2 20:44:50 Fatigue 12922250 Completed Shayy echols, [facility] 3 15:18:55 Hemorrho ids 68540046 Completed [facility]ckerman null, [facility] 15:18:55 Headache 93629249 Completed [facility]ckerman null, [facility] 3 15:18:55 heart disorder 260950911 Completed Shayy Ackerman null, [facility] 3 15:18:55 Problem Notes None recorded. Procedures Surgical History Date Name Laterality Status Provider Name and Address Organization Details Recorded Time 09/23/2022 Date of Last Pap Smear completed [facility] [address], [place], [address], [facility] 09/23/2022 15:42:25 Imaging Results Imaging Date Name Status LastModified by Organization Details LastModified Time 11/03/2023 US, transvaginal completed [email or web address] [address], [place], [address], 11/08/2023 17:34:32 12/23/2023 US, transvaginal completed [email or web address] [address], [place], [address], 12/24/2023 09:52:08 Procedure Notes None recorded. Medical [...] valACYcl ovir 1 gram oral tablet RxNorm: [id number] Allow Substitu tion: True Refill Denied: No Edited by: jaimie miranda(Paige Gallardo ) on 08/07/19 Stopped by: jaimie miranda(Paige Gallardo ) on 08/07/19 21 Not [...] benzonat ate 100 mg oral capsule RxNorm: [id number] Allow Substitu tion: True Refill Denied: No Edited by: Leona Duran ) on 09/03/19 Stopped by: kenia (Leona Tavares ) on 09/03/19 Not Available Not Available Not Available doxycycli [...] Updated DateTime 4 162.56 cm 25.3 kg/m2 03291.5 2 g 97.4 [degF] 100 mm[Hg] 62 mm[Hg] Shereen Salgado [facility] 4 14:17:00 Date Recorded Body height Body mass index (BMI) Body weight Body temperature Systolic blood pressure Diastolic blood pressure Provider Name and Address Organization Details Last Updated DateTime 4 162.56 cm 25.5 kg/m2 72257.5 4 g 97.2 [degF] 102 mm[Hg] 58 mm[Hg] Nisha Flowers [facility] 4 14:12:33 Date Recorded Body height Body mass index (BMI) Body weight Body temperature Systolic blood pressure Diastolic blood pressure Provider Name and Address Organization Details Last Updated DateTime 4 162.56 cm 25.1 kg/m2 47081.4 9 g 97.6 [degF] 106 mm[Hg] 58 mm[Hg] Jose Cunha [facility] 4 15:02:17 Date Recorded Body height Body mass index (BMI) Body weight Body temperature Systolic blood pressure Diastolic blood pressure Provider Name and Address Organization Details Last Updated DateTime 4 162.56 cm 24.9 kg/m2 60108.1 8 g 97.4 [degF] 110 mm[Hg] 68 mm[Hg] Enedina Harrison [facility] 4 15:25:13 Date Recorded Body height Body mass index (BMI) Body weight Systolic blood pressure Diastolic blood pressure Provider Name and Address Organization Details Last Updated DateTime 12/23/2023 162.56 cm 21.3 kg/m2 14756.4 5 g 96 mm[Hg] 42 mm[Hg] Kelley Bennett [facility] 4 11:37:17 Social History Question Answer Notes LastModified by Organizat ion Details LastModified Time Tobacco Smoking Status Current Every Day Smoker Maria Guadalupe Delarosagiuliana echols, [facility] 01/07/2021 15:20:09 What Is Your Level Of Alcohol Consumption? None Information not available 01/07/2021 If You Are , What Was Your Level Of Alcohol Consumption Prior To ? None Information not available 05/07/2022 Are You Blind Or Do You Have Difficulty Seeing? No Information not available 11/19/2021 Are You Currently Employed? No [email or web address] Information not available 02/23/2023 Are You Deaf [...] Or The Highest Degree You Have Received? [id number] [email or web address] Information not available 02/23/2023 How Many Children [...] SNOMED-CT Code Diagnosis ICD10 Code Diagnosis Note [id number] Meena Baeza-Neville is, [facility] [address] [place] [address] 01/07/2021 15:10:04 01/07/2021 15:35:31 state 24463143 Z39.[address], formula feeding Acute vaginitis 83672434 N76.0 Reviewed vulvar care guidelines and safe sex practices [id number] Meena Claire is, [facility] [address] [place] [address] 11/19/2021 11:29:11 11/19/2021 15:59:41 Missed period 84817853 N92.5 LMP 09/23/21US 11/19 [id number] interval preg last baby 11/22/20 uncomplica dima Nausea 563060864 R11.0 [id number] Nirali Sellers MD [facility] [address] [place] [address] 01/06/2022 15:30:40 01/06/2022 22:13:42 Routine care 689734241 Z34.01 Z34.81 O09.511 O09.521 new ob labs drawn today. Discussed NIPT. anatomy scan next screening 2437 94696 Z36.0 Carrier de tection, molecular genetics 5328188 Z14.8 [id number] Meena Claire is, [facility] [address] [place] [address] 02/12/2022 12:08:07 02/18/2022 14:58:39 [id number] Sofia Hamm, [facility] [address] [place] [address] 03/18/2022 10:15:56 03/18/2022 11:26:29 Gestation period, 25 weeks 40055279 Z3A.25 Routine an tenatal care 572880101 Z34.92 Screening for disorder 380372837 Z11.3 N89.9 Headache 54386666 R51.9 External hemorrhoids 239 12379 K62.5 Malaise and fatigue 2717 16430 R53.83 [id number] LURDES ANNA DO [facility] [address] [place] [address] 04/08/2022 14:33:00 04/08/2022 16:18:12 Routine care 957614029 Z34.03 Z34.83 O09.513 O09.523 Gestation period, 28 weeks 70971582 Z3A.28 Increased nausea and vomiting 22588121 R11.2 Low back p ain in 1796399443 106 O26.663 [id number] Hamida Morales CNM [address] [address] 04/23/2022 13:11:59 04/23/2022 22:21:22 Normal in multigravida 9722150587 56290 Z34.83 Gestation period, 30 weeks 47428646 Z3A.30 labor precaution s given. FM counts discussed. F/u in L&D if experienci ng decreased movement, leaking fluid, 4 or more contractio ns in 1 hour not relieved by rest and fluids, or regular uterine contractio ns increasing in frequency and/or intensity. Reduced fe jani movement 156675779 O36.8199 Modified BPP - NST w/PADMINI [id number] Hamida Morales CNM [address] [address] 04/30/2022 17:19:10 05/01/2022 14:25:25 Supervision of high risk for multigravida done 2697365924 9109 O09.93 Vaginal irritation 27605 6004 N89.8 Gestation period, 31 weeks 29146430 Z3A.31 labor precaution s given. FM counts discussed. F/u in L&D if experienci ng decreased movement, leaking fluid, 4 or more contractio ns in 1 hour not relieved by rest and fluids, or regular uterine contractio ns increasing in frequency and/or intensity. [id number] HUA BLOOM MD [address] [address] 05/07/2022 15:09:36 05/08/2022 14:04:28 Gestation period, 32 weeks 1457001 Z3A.32 High risk 4720 0007 O09.73 Abnormalit y of heart 736395219 O36.8999 [id number] Nirali Sellers MD [address] [address] 05/12/2022 11:02:08 05/12/2022 19:35:16 Normal in multigravida 0606610205 82010 Z34.83 discussed delivery plans. She has appt tomorrow with peds cardiology - most likely will deliver at [place] due to avail of more advanced services for baby Gestation period, 32 weeks 1734515 Z3A.32 [id number] MAHNAZ HENNESSY [address] [address] 09/23/2022 14:28:49 09/24/2022 12:59:52 Gynecologic examination 59065019 Z01.419 Screening for malignant neoplasm of cervix 999916037 Z12.4 Contracept ion education 791720955 Z30.09 Contracept lee counseling : Discussed options including OCPs, NuvaRing, Nexplanon, hormonal and copper IUDs. Discussed risks, efficacy, noncontrac eptive benefits, and side effects of each option, including risk of VTE with hormonal contracept ion and uterine perforatio n, expulsion, infection with IUD. Recieved first shot of Depo in August. Pt has had brown discharge since then. Edcuation given. Increased frequency of urination 735106171 R35.0 Constipation 60596615 K5 9.00 Pt reports pelvic pain with constipati on. Education given. [id number] MAHNAZ HENNESSY [address] [address] 01/25/2023 15:40:40 01/26/2023 10:37:11 Abnormal uterine bleeding 5559828544 9100 N93.9 Pt was on depo and just got off of it. would like to restart. management 278 207958 Z39.1 Dysuria 49850760 R30.0 Initiation of depot contraception done 8323683849 57572 Z30.013 Pt comes in for Initiation of [...] Depo injections . Contracept ion care education 690971978 Z30.09 Contracept lee counseling : Discussed options including OCPs, NuvaRing, Nexplanon, hormonal and copper IUDs. Discussed risks, efficacy, noncontrac eptive benefits, and side effects of each option, including risk of VTE with hormonal contracept ion and uterine perforatio n, expulsion, infection with IUD. [id number] SAPNA RODAS [facility] [address] [place] [address] 02/23/2023 14:08:03 02/24/2023 11:22:13 Vaginal discharge 574135016 N89.8 N76.0 Pt educated on exam findings, and discussed POC. Vaginal cx collected and sent. Rx for Flagyl and Diflucan sent. Pt advised to avoid fragrant soaps/laun dry detergents , use of baking soda soaks, having partner change soaps, etc. Further POC pending lab result review. Abnormal u terine bleeding 1489897786 9100 N93.9 Pt comes in with AUB. [...] US was normal. Contracept ion: None POCSure SwabTSH Approximat jada forty five minutes spent with patient in consultati on (>50% face-to-fa ce). Patient labs and notes were reviewed. Patient questions were answered. Additional patient care was coordinate d. Discharge from nipple 54 414471 N64.52 -Discussed with patient hormones, or sexual [...] prolactin in your blood. POC:Prolac tin level [id number] [facility]ARY [facility] QUIN[facility]Y [facility] [address] [place] [address] 03/16/2023 13:59:55 03/17/2023 13:24:56 Menorrhagia 971148962 N92.0 [id number] DARNELL TRAMMELL NP [facility] [address] [place] [address] 09/23/2023 14:41:38 09/23/2023 17:14:01 Increased frequency of urination 809561029 R35.0 Patient reports frequency and bleeding. Patient unsure if bleeding is from the vagina or urethra as she is have irritation at meatus. Menorrhagia 311259834 N9 2.0 Patient electing to self collect. Given instructio ns by [employer] to insert past correction anamika and rotate for 30s. Patient denies questions and verbalizes understand ing. Wishes to proceed with self collection . Vulvar care guidelines and safe sex practices reviewed. TX pending results. Anemia 287762399 D64.9 [id number] DARNELL TRAMMELL NP [facility] [address] [place] [address] 11/03/2023 14:38:48 11/05/2023 13:41:16 Menorrhagia 153192189 N92.0 Discussed causes of abnormal uterine bleeding, [...] hours before Menses. Disorder o f menstruation 264957492 N92.6 Urinary symptoms 5670962 08 R39.9 Patient with reported frequent UTI. Patient with discomfort today.POCD ipstick and culture Venereal d isease screening 985037507 Z11.3 Discussed the various types of STDs, related symptoms and the potential consequenc es (including effects on fertility) of STD infections . Reviewed ways to limit exposure and prevention techniques . Recurrent urinary tract infection 256695784 N39.0 Family his tory of malignant neoplasm of genital structure 707381754 Z80.49 discussed MYRisk and talking with mother that has a history of unknown type of reporducti ve cancer. [id number] SAPNA RODAS [facility] [address] [place] [address] 12/23/2023 11:09:13 12/23/2023 14:19:37 test positive 253594775 Z32.01 Miscarriage 86654716 O03 .9 --TVUS today: homogeneou s uterus [...] 2020 (MEDICAID REPLACEMENT - HMO) Davida Juan [id number] Davida Juan 03/16/2023 1 [employer] [place] ON [place] AFTER 2020 (MEDICAID REPLACEMENT - HMO) Davida Juan [id number] Davida Juan 09/23/2023 1 [employer] [place] AFTER 2020 (MEDICAID REPLACEMENT - HMO) Davida Juan [id number] Davida Jaun 11/03/2023 1 [employer] [place] (MEDICAID REPLACEMENT - HMO) Davida Juan [id number] Davida Juan 12/23/2023 1 [employer] [place] (MEDICAID REPLACEMENT - HMO) Davida Juan [id number] Davida Juan Notes Date Note Type Note [...] and denies any bloody discharge. ELLEN PROCTOR, [employer] [facility] [facility], [place], [address], [facility] 02/23/2023 15:40:57 03/16/2023 text/html Davida present s today for heavy bleeding. Pt states its not normal for her to be bleeding that much. She has been bleeding off and on 3x since Feb. She states it start off pink then bright red and then she pass clots. She is currently bleeding now. MARY LOU QUINN-RUY [facility] [place], [address], [facility] 03/16/2023 14:29:55 09/23/2023 text/html Lower [...] bleeding in the shower. DARNELL TRAMMELL NP [facility], [place], [address], [facility] 09/23/2023 16:16:47 11/03/2023 text/html Davida in offi ce for follow up visit and USUS done today in office pt c/o of painful urination and urinary frequency pt would like std testing DARNELL TRAMMELL NP [address] [facility], [place], [address], [facility] [employer] [facility] 11/04/2023 10:57:05 12/23/2023 text/html Patient went [...] not as much yesterday and today. SAPNA RDOAS [address] [facility], [place], [address], [facility] [employer] IV 12/23/2023 13:58:49 OBGyn Episode Ob Episode Information Episode Created Date Number of Fetuses Patient Bloodtype Patient rh Status Prepregnancy Weight lbs Domestic Partner Domestic Partner Phone Father Name Strip Stamp Straightener Status 01/07/20 22 1 O Positive CLOSED Fetus Data First Name Last Name Admitted to NICU Weight (g) Sex Living Outcome Pediatric Complications Fetus ID Race Codes Race Delivery Type [id number] Problems Problem Notes large foramen ovale an eurysm on US arrhythmia - Ped cardiology referral Problem Name Start Date End Date Resolution Snomed Code Not e heart disorder 127636418 Headache 17855533 Fatigue 23439942 Hemorrhoids 96686612 Gordon Calculation Initial Gordon Date Initial Exam [...] Weight in lbs Pre/Post Dialysis Refused Weight 149.677492871295 BP Diastolic BP Location Tested BP Systolic BP Type 62 134 Fetus Heart Rate Present A 150 Present Fetus Movement Comments 15 wks. Desires to have gene tic test done - will draw [place] panel. Also needs to do new OB labs - drawn today. Anatomy scan next Flowsheet Date 02/12/2022 Brooks Score Blood Edema Fundus Height Fundus Units Glucose Ketones Leukocytes Nitrite Labor Signs Protein Cervic Dilation Cervic Effacement Cervic Station none trace Type Weight in lbs Pre/Post Dialysis Refused Weight 158.394063720469 BP Diastolic BP Location Tested BP Systolic BP Type 66 110 Fetus Heart Rate Present Fetus Movement Comments Flowsheet Date 03/18/2022 Brooks Score Blood Edema Fundus Height Fundus Units Glucose Ketones Leukocytes Nitrite Labor Signs Protein Cervic Dilation Cervic Effacement Cervic Station 25 cm none neg Type Weight in lbs Pre/Post Dialysis Refused Weight 165.160826295161 BP Diastolic BP Location Tested BP Systolic BP Type 52 106 Fetus Heart Rate Present A 154 Fetus Movement A Yes Comments Process Eng in for visit today. Julio hurley complains [...] in lbs Pre/Post Dialysis Refused With clothes 169.523147193962 BP Diastolic BP Location Tested BP Systolic [...] in lbs Pre/Post Dialysis Refused With clothes 174.98743690762 BP Diastolic BP Location Tested BP Systolic [...] in lbs Pre/Post Dialysis Refused With clothes 174.50927986968 BP Diastolic BP Location Tested BP Systolic BP Type 52 108 Fetus Heart Rate Present A 146 Fetus Movement A Yes Comments Pt was referred to [facility] for c ardiac arrhythmia. Dr. Chary Peoples from [facility] spoke w/Dr Daly a few days ago regarding ultrasound findings. Davida's baby has a large foramen ovale aneurysm which can be a variant of normal, however this aneurysm is larger than normal and can cause irregular heart beat as noted w/US on 04/23. With [facility], the heart rhythm was normal for them. This patient needs two things.1. Need to decide where this patient is going to delivery. She told them at [facility] she was considering [facility].2. Refer her to Pediatric Cardiology at the place of her planned delivery.However, Davida noted at her visit that they told her baby's heart was normal. There is no report from [facility] available at the time of this visit. Additionally, Ander was seen at [facility] by cardiology and has to wear halter monitor for 2 weeks (?). I asked Davida to sign a records request so we can get cardiology report since her PCP sent the referral. She has a ed case manager with her from [facility] d/t her social situation. I am under the impression that Davida is not clearly understanding the current situation. I have asked her to make sure she brings any concerns to our attention immediately. Additionally, I encouraged her to make follow up appointments with MD to further discuss appropriate f/u and care delivery.Note sent to obtain [facility] consult notes. Flowsheet Date 05/07/2022 Brooks Score Blood Edema Fundus Height Fundus Units Glucose Ketones Leukocytes Nitrite Labor Signs Protein Cervic Dilation Cervic Effacement Cervic Station 32 wks none Type Weight in lbs Pre/Post Dialysis Refused With clothes 177.487889814038 BP Diastolic BP Location Tested BP Systolic [...] Weight in lbs Pre/Post Dialysis Refused Weight 174.86374619054 BP Diastolic BP Location Tested BP Systolic [...] Domestic Partner Domestic Partner Phone Father Name Strip Stamp Straightener Status 02/23/19 24 1 CLOSED Fetus Data First Name Last Name Admitted to NICU Weight (g) Sex Living Outcome Pediatric Complications Fetus ID Race Codes Race Delivery Type F [id number] Gordon Calculation Initial Gordon Date Initial Exam [...] Domestic Partner Domestic Partner Phone Father Name Strip Stamp Straightener Status 02/23/19 24 1 CLOSED Fetus Data First Name Last Name Admitted to NICU Weight (g) Sex Living Outcome Pediatric Complications Fetus ID Race Codes Race Delivery Type F Full Term [id number] Gordon Calculation Initial Gordon Date Initial Exam [...] Complications Tubal Sterilization Discharge Date Comments 3 Regional- idural Discharge Information Feeding Method Contraceptive Method Maternal HG B and HCT Levels
--- OUTSIDE RECORDS SUMMARY | 2024-05-13 16:08 | XMS_ITS | Clinical Summary ---
Author Organization [facility] Address [address] [place] [id number] Care Team Providers Care Senior Air Director Name Role Phone Zak Arauz MD Primary [...] # Disposition: Follow up task sent to [facility] scheduling pool. Desires discharge home today. Macrosomia [...] (05/14/2022): When she was seen in the [facility] there was concern for a dropped beats and a arrhythmia and she was referred to MFM. A arrhythmia was also heard in her primary OB office. She was scanned by [facility] (care everywhere) which did not note an [...] risk , antepa rtum 05/12/2022 Overview (06/23/2022): [facility] RN: Mariah Rodriguez - [phone] [x] Full [facility] Care; [x] Blue Team Referring Provider: [facility] - Hamida Morales [x] Dating Criteria: [...] Valentin [x] Method of feeding: breast [x] Model Maker Apprentice: [x] PP Depression Discussed: plan reviewed and [...] often do you attend chur ch or yazidism services? More than 4 times per year 06/30/2022 Do you belong to any clubs o r organizations such as anabaptist groups, unions, fraternal or athletic groups, or [...] place to sleep or slept in a retirement (including now)? 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LD) Last Filed Vital Signs Vital Sign [...] Visit/Exam 18-64 2018 Depression Screening 09/04/2023 09/03/2022 Chlamydia and Gonorrhea (GC/ CT) Screening 02/06/2024 02/05/2023, 11/01/2022, 04/20/2022 Influenza Vaccine (Season Ended) 2024 12/08/19 13, 01/08/2005 DTaP/Tdap/Td Vaccine (7 - Td or Tdap) 06/04/2032 06/04/2022, 07/06/2012, 12/30/2001, Additional history exists Hepatitis B Screening Completed 09/19/2001 , 2000, 2000 Pneumococcal vaccine <65 Completed 003, 09/19/2001, 2000 HPV Vaccines Completed 08/25/2013, 08/09, 07/06/2012 Varicella Vaccines Completed 07/01/2022, 0 05/15/2014, 09/19/2001 Procedures Procedure Name Priority Date/Time Associated Diagnosis Comments N. GONORRHOEAE/C. TRACHOMATIS AMPLIFICATION STAT 02/05/2023 10:21 AM COSMETOLOGIST APPRENTICE from Last 3 Months or Most Recently Relevant to Health Maintenance Results * N. gonorrhoeae/C. trachomatis Amplification Urine (02/05/2023 10:21 AM COSMETOLOGIST APPRENTICE) C. trachomatis Not Detected Not Detected DEBBIE ARREOLA Comment:Testing performed by : [facility], [address] [place] [address]., [address] N. gonorrhoeae Not Detected Not Detected DEBBIE Comment: Interpretive Data This assay detects Chlamydia trachomatis and Neisseria gonorrhoeae by nucleic acid amplification testing (NAAT). This assay has been cleared by the [place] Food and Drug administration. The performance characteristics of this test have been verified by the [facility]. The performance characteristics of this test have not been evaluated in individuals less than 14 years of age. Current Interpretive Data last revised 2022. Testing performed by: [facility], [address] [place] [address]., [id number] Urine (None) 02/05/2023 10:2 1 AM COSMETOLOGIST APPRENTICE 02/05/2023 10:30 AM COSMETOLOGIST APPRENTICE us Ana Paula [facility] MICROBIOLOGY - GENERAL ORDER RANDY Final Result DEBBIE [address] [facility] Department [place] [address] from Last 3 Months or Most Recently Relevant to Health Maintenance Insurance AETNA [facility] AETNA [facility] AETNA [facility] Advance Directives For more information, please contact: [phone] * Full Code (Latest Code Status on File) Date Activated Date Inactivated Comments 06/30/2022 12:39 AM 07/01/2022 8:58 PM * Full Code Date Activated Date Inactivated Comments 06/28/2022 9:29 PM 06/30/2022 12:39 AM Full CPR in case of cardiopulmonary arrest Care Teams Senior Air Director Relationship Specialty [place] [address] [place] [id number] PCP - General Internal Medicine 03/16/22
--- OUTSIDE RECORDS SUMMARY | 2024-05-13 16:08 | XMS_ITS | Referral Summary ---
Author Organization [facility] Address [address] [place] [id number] Care Team Providers Care Chair Finisher Name Role Phone Zak Arauz MD Primary [...] # Disposition: Follow up task sent to [facility] scheduling pool. Desires discharge home today. Macrosomia [...] (05/14/2022): When she was seen in the [facility] there was concern for a dropped beats and a arrhythmia and she was referred to MFM. A arrhythmia was also heard in her primary OB office. She was scanned by [facility] (care everywhere) which did not note an [...] risk , antepa rtum 05/12/2022 Overview (06/23/2022): [facility] RN: Mariah Rodriguez - [phone] [x] Full [facility] Care; [x] Blue Team Referring Provider: [facility] - Hamida Morales [x] Dating Criteria: L [...] Valentin [x] Method of feeding: breast [x] Lamp Shade Maker: [x] PP Depression Discussed: plan reviewed and [...] often do you attend chur ch or latter-day services? More than 4 times per year 06/30/2022 Do you belong to any clubs o r organizations such as taoism groups, unions, fraternal or athletic groups, or [...] place to sleep or slept in a snf (including now)? No 06/30/2022 [place] Depression Scale Answer Date Recorded [place] Depression Scale Total 3 09/03/2022 The thought [...] on file Legal Sex Female 2:54 PM MOLD SHOP SUPERVISOR Gender Identity Not on file Sexual Orientation [...] GONORRHOEAE/C. TRACHOMATIS AMPLIFICATION STAT 02/05/2023 10:21 AM MOLD SHOP SUPERVISOR from Last 3 Months or Most Recently Relevant to Health Maintenance Results * N. gonorrhoeae/C. trachomatis Amplification Urine (02/05/2023 10:21 AM MOLD SHOP SUPERVISOR) C. trachomatis Not Detected Not Detected DEBBIE ARREOLA Comment:Testing performed by : [facility], [address] [place] [address]., [address] N. gonorrhoeae Not Detected Not Detected DEBBIE ARREOLA Comment: Interpretive Data This assay detects Chlamydia trachomatis and Neisseria gonorrhoeae by nucleic acid amplification testing (NAAT). This assay has been cleared by the [place] Food and Drug administration. The performance characteristics of this test have been verified by the [facility]. The performance characteristics of this test have not been evaluated in individuals less than 14 years of age. Current Interpretive Data last revised 2022. Testing performed by: [facility], [address] [place] [address], [place]., [address] Urine (None) 02/05/2023 10:2 1 AM MOLD SHOP SUPERVISOR 02/05/2023 10:30 AM MOLD SHOP SUPERVISOR us Ana Paula [facility] MICROBIOLOGY - GENERAL ORDER RANDY Final Result CERNER [address] [place] [address] from Last 3 Months or Most Recently Relevant to Health Maintenance Insurance [employer] [facility] Member Subscriber Plan / Payer (Ef fective 2020-Present) Name:Davida Juan Relation to Subscriber:Self Name:Davida Juan Payer ID:[id number] (NAIC) Group ID:Not on file Type:MEDICAID RISK OTHER Address: [facility] [id number] [place] [id number] [employer] [facility] [facility] A[employer]NA [facility] Advance Directives For more information, please contact: [phone] * Full Code (Latest Code Status on File) Date Activated Date Inactivated Comments 06/30/2022 12:39 AM 07/01/2022 8:58 PM * Full Code Date Activated Date Inactivated Comments 06/28/2022 9:29 PM 06/30/2022 12:39 AM Full CPR in case of cardiopulmonary arrest Care Teams Chair Finisher Relationship Specialty [place] [address] [place] [address] PCP - General Internal Medicine 03/16/22
--- OUTSIDE RECORDS SUMMARY | 2024-05-13 16:08 | XMS_ITS | Clinical Summary ---
Author Organization [facility] Address [address] [place] [address] Care Team Providers Care Airfield Manager Name Role Phone Unavailable Primary Care Provider Unavailabl e Source Comments [facility],non-owned Affiliates and Associated Physician Practices is amultiple site organization consisting of ambulatory clinics and hospital sitesin [place], [place], [place] and [place]. This disclosure is being madepursuant to the Care Everywhere program and may not contain all information available regarding this patient. Last updated 17.[facility] Allergies No known active allergies Social History [...] VACCINE (1 - 2023-2 5 season) 2023 DEPRESSION SCREENING 02/09/2024 INFLUENZA VACCINE (Season Ended) 2024 12/07/2012, 01/08/2005 ZOSTER VACCINE (1 of 2) 2050 HIV [...]
--- OUTSIDE RECORDS SUMMARY | 2024-05-13 16:08 | XMS_ITS | Clinical Summary ---
Author Organization [facility] Address [address] [place] [phone] Care Team Providers Care Utilization Review Rn Name Role Phone Unavailable Primary Care Provider [...] 3-dose series) 09/17/2019 CERVICAL CANCER SCREENING 2021 HPV/Cotest (21-29) 2021 PAP SMEAR 2021 INFLUENZA VACCINE (#1) 2023 PNEUMOCOCCAL VACCINE 0-49 YEARS Aged Out No longer eligible based on patient's age to complete this topic Insurance [facility] MED[facility]
--- OUTSIDE RECORDS SUMMARY | 2024-05-13 16:08 | XMS_ITS | Encounter Summary ---
Author Organization [facility] Address [facility] [place] [address] Care Team Providers Care Body Recall Instructor Name Role Phone New Referring, Provider Primary Care Provider Un available Encounter Details Date Type Department Care Team (Late st Contact Info) Description 12/11/2020 Hospital Follow-up Call [facility] [place] [address] Kelly Sanchez, RN Social History Tobacco Use [...] Rule Out 12/16/2021 12/16/2021 12/16/2021 12:56 PM INFIRMARY ATTENDANT COVID-19 Rule Out 01/05/2023 01/06/2023 01/06/2023 1:05 AM INFIRMARY ATTENDANT documented as of this encounter Care Teams Body Recall Instructor Relationship Specialty Start Date End Date New Referring, Provider PCP - General UNKNOWN PHYSICIAN SPECIALTY 07/13/20 documented as of this encounter
--- OUTSIDE RECORDS SUMMARY | 2024-05-13 16:08 | XMS_ITS | CONTINUITY OF CARE DOCUMENT ---
Author Name jin abdi Address Unknown Organization [facility] Address [address] [place] [address] Phone [phone] Care Team Providers Care Special Education Paraeducator Name Role Phone Sammie Coates MD Unavailable DASHAWN LOPEZ MD Unavailable [phone] DASHAWN LOPEZ MD Unavailable PROBLEMS Condition [...] In-person encounter Office Visit Sammie Coates MD [facility] - In-person encounter Office Visit Donnie Hawkins MD [facility] Cardiology examinationPregnancy with 35 completed weeks gestationSleep apnea, mildAnemia - In-person encounter Office Visit Sammie Coates MD [facility] DizzinessConstipation - In-person encounter Office Visit Sammie Coates MD [facility] - In-person encounter Office Visit Sammie Coates MD [facility] PalpitationChest painShortness of breathDepressionPregnancy with 35 [...] Lissy kLogic blood pressure, diastolic 63 mm[Hg] Blakn mclain Fisher blood pressure, systolic 118 mm[Hg] [facility] bulmaro [place] oxygen saturation, oximetry 98 % Thais Fisher [...] ewed - no changes required Pebbles Cross DIETARY SERVICES MANAGER social history E&M S moking History: Richelle judd currently smokes every day. Pebbles Pachecori DIETARY SERVICES MANAGER drug use no Pebbles Sanchezreri DIETARY SERVICES MANAGER alcohol use no Pebbles Sanchezreri DIETARY SERVICES MANAGER smoking status Current every day smoker V brent Pachecoparviz DIETARY SERVICES MANAGER number of grandchildren Sammie Coates MD Pebbles Pachecori DIETARY SERVICES MANAGER social history reviewed E&M revi ewed - no changes required Pebbles Pachecori DIETARY SERVICES MANAGER social history E&M S moking History: Richelle judd is a former smoker. Pebbles Pachecori DIETARY SERVICES MANAGER drug use no Pebbles Pachecori DIETARY SERVICES MANAGER alcohol use no Pebbles Pachecori DIETARY SERVICES MANAGER social history reviewed E&M revi ewed - no changes required Pebbles Pachecori INDER social history E&M S moking History: Richelle judd currently smokes every day. Pebbles Pachecoparviz LOVING smoking history, tot al pack/day 1 Niurka Bolaños cigarette use yes Niurka Bolaños smoking status Current every day smoker A andie Bolaños INSURANCE PROVIDERS Payer name Policy type / Coverage type [facility] alliance party ID AETNA [facility] Medicaid [id number] ADVANCE DIRECTIVES Name Date DISCUSSED - NO DECISION MADE TREATMENT PLAN Date Name Performer [id number],C, P binta still has palpitations off and [...] would recommend PCP follow up Brad Burrell [id number],C, P binta stil has chest pain HAS [...] GI to rule out GERD Brad Burrell [id number],C,H gb 9.9, this is likely culprit for her sxs, advised her to take her iron medication and follow up with RECEIVING WORKER, PCP Brad Burrell [id number],C, P binta still experiencing shortness of breath [...] O ISSUES WITH PREGANCY HAD DELIVERED AT [facility] G ETS SOB WITH WALKING OR S TARTED SMOKING 2-3 PER DAY N O PRIOR HX OF ASTHMA December 25, 2022 S he continues to be SOB with very minimal exertion, differential dx related to pulmonary process vs anemia Brad Burrell [id number],C, M ild sleep apnea per ecent sleep study 05/2021. Autopap/Cpap recommended WILL ARRANGE FOR CPAP/AUTOPAP December 04, 2022 H as not been able to get for a sleep titration study due to lack of child care supervisor Pebbles Cross NP [id number],S,C ONCLUSIONS: 1 . Normal left ventricular systolic [...] Sammie Coates MD, FACC Pebbles Tay LOVING [id number],S, P atient still has palpitations off and [...] IF SHE HAS RECURRENT SVE Pebbles Cross DIETARY SERVICES MANAGER [id number],C, T he Patient was encouraged to stop smoking. Pebbles Cross DIETARY SERVICES MANAGER [id number],S,N EEDS TO SEE GI SHE HAD NATURAL CHILDBIRTH AND HAS NOTICED ISSUES WIHT BM SINCE DELIVERY Pebbles Cross DIETARY SERVICES MANAGER [id number],S, P atient still experiencing shortness of breath [...] O ISSUES WITH PREGANCY HAD DELIVERED AT [facility] G ETS SOB WITH WALKING OR S TARTED SMOKING 2-3 PER DAY N O PRIOR HX OF ASTHMA Pebbles Cross DIETARY SERVICES MANAGER [id number],S, P atvivek stil has chest pain HAS HIATIAL HERNIA AND OR ACID REFLUX O K FOR MALLOX OR MYLANTA December 04, 2022 P binta reports sharp/stabbing mostly R sided chest pains S USPECT REPRODUCIBLE CP THE MAIN ISSUE SHE IS ALSO PENDING A GI W/U IN ISAIAH Cross DIETARY SERVICES MANAGER [id number],C,Flow murmur n oted on exam Pebbles Cross DIETARY SERVICES MANAGER [id number],C,P atvivek still has palpitations off and on [...] ocumented as isolated beats. Pebbles Sanchezdinah LOVING [id number],Russell,P binta still experiencing shortness of breath S [...] adequately assess the RVSP. Pebbles Tay LOVING [id number],C,M ild sleep apnea per ecent sleep study 05/2021. Autopap/Cpap recommended WILL ARRANGE FOR CPAP/AUTOPAP Pebbles Sanchezdinah LOVING [id number],Russell,P binta stil has chest pain HAS HIATIAL HERNIA AND OR ACID REFLUX O K FOR MALLOX OR MYLANTA Whitneyladonna Sanchezdinah LOVING [id number],C,T he Patient was encouraged to stop smoking. Pebbles Cross NP [id number],S,M AY BE MURMUR ASSOCIATED WITH WILL GET ECHO DONE Pebbles Cross DIETARY SERVICES MANAGER [id number],S,P binta has had chest discomfort throughout her H HAD CHEST PAINS BEFORE LASTS FOR 5MIN AND ARE RECURRENT D OESNT RECALL HAVING ISSUES WITH FIRST Pebbles Cross DIETARY SERVICES MANAGER [id number],S,P binta has been experiencing shortness of breath associated with chest discomfort throughout her G ETS SOB RECALLS WITH FIRST M AY BE RELATED TO ANEMIA A ND SMOKING M AY BE HAVING SLEEP APNEA Pebbles Pachecoparviz DIETARY SERVICES MANAGER [id number],C,E KG n office today shows Sinus Tachycardia W ILL ARRANGE FOR TELE MONITOR FOR 2 WKS C HECK ECHO FOR MVP HAS MURMUR ON EXAM MAY BE FLOW RELATED MURMUR FROM Pebbles Pachecoparviz LOVING [id number],C,S inus Tachycardia per EKG in office today. C HECK FOR ANEMIA P T LOOKS PALE M AY NEED ADDITIONAL IRON SUPPLEMENTATION Pebbles Pachecoparviz LOVING Cardiology:F/u with PCP regarding anemia. Prior workup showed H gb 9.9, this is likely culprit for her sxs, advised her to take her iron medication and follow up with RECEIVING WORKER, PCP Sammie Coates MD Cardiology: T he Patient was encouraged to stop smoking. Sammie Coates MD Cardiology: M ild sleep apnea per ecent sleep study 05/2021. Autopap/Cpap recommended WILL ARRANGE FOR CPAP/AUTOPAP December 04, 2022 H as not been able to get for a sleep titration study due to lack of child care supervisor Sammie Coates MD Cardiology:Repeat sl eep study [...] her iron medication and follow up with RECEIVING WORKER, PCP Brad Burrell Electrophysiology: Richelle judd still experiencing shortness of breath S LEEP W/U WAS WITH MILD AVELIAN BUT O2 SAT WAS GOOD AROUND 96% [...] O ISSUES WITH PREGANCY HAD DELIVERED AT [facility] G ETS SOB WITH WALKING [...] titration study due to lack of child care supervisor Pebbles Cross NP Cardiology:CONCLUSIO NS: 1 . [...] O ISSUES WITH PREGANCY HAD DELIVERED AT [facility] G ETS SOB WITH WALKING [...] AY NEED ADDITIONAL IRON SUPPLEMENTATION Pebbles Sanchezdinah DIETARY SERVICES MANAGER Date Name Sleep Study Holter Monitor 48 [...]
--- OUTSIDE RECORDS SUMMARY | 2024-05-13 16:08 | XMS_ITS | Clinical Summary ---
Author Organization [facility] Address [address] [place] [address] Care Team Providers Care Cardiac Cath Rn Name Role Phone New Referring, Provider Primary [...] Active Problems Problem Noted Date Diagnosed Date ([facility]) 11/25/2020 Family History Medical History Relation Comments [...] Comments Blood Pressure 110/52 02/08/2023 7:00 AM PEARL GLUE OPERATOR Pulse 87 02/08/2023 7:00 AM PEARL GLUE OPERATOR Temperature 36.7 C (98.1 F) 02/08/2023 2:54 AM PEARL GLUE OPERATOR Respiratory Rate 24 02/08/2023 7:00 AM PEARL GLUE OPERATOR Oxygen Saturation 100% 02/08/2023 7:00 AM PEARL GLUE OPERATOR Inhaled Oxygen Concentration - - Weight 67.1 kg (148 lb) 02/08/2023 2:54 AM PEARL GLUE OPERATOR Height 162.6 cm (5' 4 ) 02/08/2023 2:54 AM PEARL GLUE OPERATOR Body Mass Index 25.4 02/08/2023 2:54 AM PEARL GLUE OPERATOR Plan of Treatment Health Maintenance Due Date Last Done Comments Annual Physical 09/17/2003 Pneumococcal Vaccine: Pediatrics (0 to 5 Years) and At-Risk Patients (6 to 64 Years) (1 of 2 - PCV) 2006 Meningococcal B Vaccine (1 of 2 - Standard) 2016 Hepatitis C 2018 Hepatitis B Vaccines (1 of 3 - 19+ 3-dose series) 09/17/2019 COVID-19 Vaccine (1 - season) 2023 Cervical Cancer Screening Pap Smear (Age [...] 5:03 AM 11/28/2020 7:41 PM Care Teams Cardiac Cath Rn Relationship Specialty Start Date End Date New Referring, Provider PCP - General UNKNOWN PHYSICIAN SPECIALTY 07/13/20
--- OUTSIDE RECORDS SUMMARY | 2024-05-13 16:08 | XMS_ITS | Data Portability ---
Author Organization [place] - [facility] [employer], Main Office Address [address] [place] [address] Assessment Encounter Date Assessment Date Assessment LastModified [...] Follow-up: 1 week after titration sleep study [email or web address] Not available 01/27/2023 09:51:51 05/27/2023 05/27/2023 Assessment: Rhinitis Mild OSAHS, AHI = 8 Plan: The following were reviewed and explained to the patient: [facility] home sleep study 05/27/22 AHI = 8, supine AHI = 10 [facility] titration sleep study 05/15/23 sleep [...] carrier. Patient will setup an appointment with [facility] for supplies and pressure adjustments. A major [...] AHI = 8, supine AHI = 10 [facility] titration sleep study 05/15/23 sleep [...] carrier. Patient will setup an appointment with [facility] for supplies and pressure adjustments. A major [...] arnel, titration study - Auth approved, auth# [id number] 21, valid 01/27/23 - 11/28/232022 023 [facility], [address] [place], [address], 4 15:31:05 Medication Orders None recorded. Patient TargetsNo targets recorded. Patient InstructionsNo instructions recorded. Reason for Referral None Reported. Results Created Date Observation Date Name Description Value Unit Range Abnormal Flag Note LastModifiedBy Organization Detail LastModifiedTime 06/29/19 24 05/15/2023 polys omnog arnel, titra tion study No observ ation record ed. BARCODE [facility] [address] [place], [address], 06/29/2023 15:12:39 07/29/19 24 07/28/2023 compl ete PFT w/ post [facility] hodil ator ashlie metry * No observ ation record ed. BARCODE Not Available 2023 12:22:29 Result Notes None recorded. 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 Procedures Surgical History None recorded. Imaging Results Imaging Date Name Status LastModified by Organization Details LastModified Time 05/15/2023 polysomnogram, titration study completed BARCODE [facility] [address] [place], [address], 06/29/2023 15:12:39 07/28/2023 complete PFT w/ post [...] Address Organization Details Last Updated DateTime 3 12559.6 7 g 25.4 kg/m2 162.56 cm 98.1 [degF] 76 /min 98 % 98 % 118 mm[Hg] 76 mm[Hg] Sandra Green MA [facility] [email or web address] [facility] 3 09:19:25 Date Recorded Heart rate Respiratory rate Provider N kings and Address Organization Details Last Updated DateTime 01/27/2023 76 /min 15 /min Rick Sargent MD [address] [employer] [address], [place], [address], [facility] [employer] 01/27/2023 09:47:39 Date Recorded Body height Body mass index (BMI) Body weight Oxygen saturation Oxygen saturation in Arterial blood by Pulse oximetry Body temperature Systolic blood pressure Diastolic blood pressure Provider Name and Address Organization Details Last Updated DateTime 4 162.56 cm 24.2 kg/m2 51719.5 2 g 98 % 98 % 97.2 [degF] 120 mm[Hg] 76 mm[Hg] Jax Hairston CMA [facility] [employer] 4 09:35:32 Date Recorded Heart rate Heart rate Respiratory rate Provider Name and Address Organization Details Last Updated DateTime 05/27/2023 98 /min 98 /min 15 /min Rick Sargent MD [address] [employer], [place], [address], [facility] [employer] 05/27/2023 10:19:19 Date Recorded Body height Body mass index (BMI) Body weight Oxygen saturation Oxygen saturation in Arterial blood by Pulse oximetry Systolic blood pressure Diastolic blood pressure Provider Name and Address Organization Details Last Updated DateTime 4 162.56 cm 24.9 kg/m2 32275.8 9 g 98 % 98 % 118 mm[Hg] 68 mm[Hg] Jax Hairston CMA [facility] [email or web address] [facility] 4 15:26:25 Date Recorded Heart rate Heart rate Body temperature Respiratory rate Provider Name and Address Organization Details Last Updated DateTime 08/26/2023 108 /min 108 /min 98.1 [degF] 14 /min Rick Sargent MD [address] [facility], [facility] [address], [place], [address] , [employer] 08/26/2023 15:59:25 Social History Question Answer Notes LastModified by Organizat ion Details LastModified Time Tobacco Smoking Status Current Every Day Smoker Sandra Green MA null, [employer] 01/27/2023 09:15:26 What Is Your Level Of [...] Anxious, Or Unable To Sleep At Night)? [id number] Information not available 01/27/2023 Do You Use [...] SNOMED-CT Code Diagnosis ICD10 Code Diagnosis Note [id number] Rick Sargent MD [facility]_[place] [address] 01/27/2023 09:01:49 01/28/2023 08:54:47 Obstructive sleep apnea syndrome 89601985 G47.33 G47.36 G47.61 [id number] Rick Sargent MD [facility] [address] [address] 05/27/2023 09:22:09 05/28/2023 08:43:41 Obstructive sleep apnea syndrome 55957205 G47.33 [id number] Rick Sargent MD [facility]_[address] [address] 08/26/2023 15:07:03 08/27/2023 08:09:56 Obstructive sleep apnea syndrome 72294934 G47.33 Health Concerns Section Related Observation LastModified [...] (MEDICAID REPLACEMENT - HMO) Davida Mayer Juan [id number] Davida Mayer Juan 05/27/2023 1 [employer] [place] ON OR AFTER 2020 (MEDICAID REPLACEMENT - HMO) Davida Mayer Juan [id number] Davida Juan 08/26/2023 1 [employer] [place] (MEDICAID REPLACEMENT - HMO) Davida Juan [id number] Davida Juan Notes Date Note Type Note [...] moderate chance of dozing. Rick Sargent MD [address] [place] [address], [address], [facility] 01/27/2023 09:58:37 05/27/2023 text/html Primary care/Ref erring provider: Zak Arauz MD; Sammie Coates MD During the [facility] home sleep study on 05/27/22 AHI = 8, supine AHI = 10. During the [facility] titration sleep study on 05/15/23, [...] water. The patient wears a [employer] [employer] [address] small Veronika nasal mask without chin strap. [...] chance of dozing. Rick Sargent MD [address], [facility] [address], [place], [address], [place] - [facility] 06/11/2023 08:45:56 08/26/2023 text/html Primary care/Ref erring provider: Zak Arauz MD; Sammie Coates MD CC: My compliance rate is down as my older daughter won't go to sleep until late. During the [facility] home sleep study on 05/27/22 AHI = 8, supine AHI = 10. During the [facility] titration sleep study on 05/15/23, [...] water. The patient wears a [address] [employer] [address] small Veronika nasal mask without chin strap. [...] chance of dozing. Rick Sargent MD [address] [facility], [place] [address], [place], [address], [place] - [facility] [employer] [employer] 08/26/2023 16:07:27 OBGyn Episode No OBEpisode recorded.
--- NOTE | 2024-05-13 18:14 | ED.ABDPAIN ---
HPI - Abdominal Pain General Chief Complaint: Abdominal Pain Stated Complaint: PREG ABD PAIN ?ECTOPIC PREG Time Seen by Provider: 05/13/24 18:12 Source: patient Mode of arrival: ambulatory Limitations: no limitations History of Present Illness HPI narrative: 23 YEARS OLD WHITE FEMALE CAME TO THE ED BY AMBULANCE FOR ABDOMINAL PAIN EVALUATION. PATIENT IS TELLING ME THAT SHE WAS AT [facility] FOR AN ON May WHICH IS 2 DAYS AGO AND HAD ULTRASOUND BUT LEFT BEFORE PROCEDURE DONE. TODAY GOT A PHONE CALL FROM THE CLINIC STATES THAT SHE HAVE PROBABLY ECTOPIC LAST MENSTRUAL PERIOD APRIL 09, 2024, PATIENT IS 4, PARA 2 1. SHE DENIES ANY ABDOMINAL PAIN, VAGINAL BLEEDING OR DISCHARGE OR NAUSEA OR VOMITING. Related Data Allergies Allergy/AdvReac Type Severity Reaction Status Date / Time No Known Allergies Allergy Verified 05/13/24 16:06 Review of Systems Review of Systems: All systems reviewed & are unremarkable except as noted in HPI and below PMFSH Past Medical History Medical History Patient denies medical problems Social History Social History Smoking packs per day: 0.5 Smoking cigarettes per day: 10.0 Smoking status: Current every day smoker Exam Narrative: GENERAL APPEARANCE: WELL-DEVELOPED, WELL-NOURISHED SKIN: NORMAL COLOR HEAD: NORMOCEPHALIC, NONTRAUMATIC EYES: CLEAR CONJUNCTIVA ENT: OROPHARYNX NORMAL, EARS NORMAL, NOSE NORMAL NECK: SUPPLE, NONTENDER CHEST AND RESPIRATORY: AIRWAY PATENT, NO RESPIRATORY DISTRESS, NO ACCESSORY MUSCLE USE HEART: REGULAR RATE/RHYTHM ABDOMEN: SOFT, NONTENDER, NO ORGANOMEGALY, QUIET BOWEL SOUNDS VASCULAR: NORMAL PERIPHERAL PULSES, NORMAL CAPILLARY REFILL. MUSCULOSKELETAL: NORMAL RANGE OF MOTION, NONTENDER BACK NEUROLOGIC: ALERT AND ORIENTED ?3, FRANCHISE SALES REPRESENTATIVE IS NORMAL TESTED, NO GROSS MOTOR DEFICIT Course Vital Signs Vital signs: Vital Signs Temperature 36.6 C 05/13/24 16:07 Pulse Rate 126 H 05/13/24 16:07 Respiratory Rate 18 05/13/24 16:07 Blood Pressure 131/60 05/13/24 16:07 Pulse Oximetry 100 05/13/24 16:07 Oxygen Delivery Room Air 05/13/24 16:07 Temperature 36.6 C 05/13/24 16:07 Pulse Rate 95 05/13/24 19:01 Respiratory Rate 18 05/13/24 19:01 Blood Pressure 117/58 L 05/13/24 19:01 Pulse Oximetry 100 05/13/24 19:01 Oxygen Delivery Room Air 05/13/24 16:07 MDM - Abdominal Pain MDM Narrative Medical decision making narrative: DIFFERENTIAL DIAGNOSIS INCLUDE , ECTOPIC , MISCARRIAGE PELVIC ULTRASOUND TODAY SHOWED INTRAUTERINE OF UNCERTAIN VIABILITY PROBABLY DUE TO EARLY GESTATIONAL AGE DISCHARGE WITH DIAGNOSIS OF , TO FOLLOW-UP WITH OBGYN CLINIC WITHIN 1 WEEK. Differential Diagnosis Differential diagnosis: Likely other ( ABOVE) Medical Records Attestation: I reviewed the patient's medical records. Lab Data Attestation: I reviewed the patient's lab results. 05/13/24 18:38 05/13/24 18:38 Labs: Lab Results 05/13/24 05/13/24 Range/Units 18:38 20:05 WBC 6.7 (4.5-10.0) K/mm3 RBC 4.07 L (4.2-5.4) M/mm3 Hgb 11.1 L (12.0-15.0) g/dL Hct 35.1 L (37.0-47.0) % MCV 86.2 (80-100) fl MCH 27.3 (26-34) pg MCHC 31.6 L (32-36) g/dl RDW 14.1 (11.5-14.5) % Plt Count 246 (150-375) k/mm3 MPV 10.2 (7.4-10.4) fl Immature Gran % (Auto) 0.3 (0-0.5) % Neut % (Auto) 56.8 (45.5-73.1) % Lymph % (Auto) 32.4 (18.3-44.2) % Bowman % (Auto) 6.8 (2.6-8.5) % Eos % (Auto) 3.3 (0-4.4) % Baso % (Auto) 0.4 (0.2-1.2) % Lymph # (Auto) 2.18 (0.9-3.2) K/mm3 Bowman # (Auto) 0.5 (0.1-0.6) K/mm3 Eos # (Auto) 0.2 (0-0.3) K/mm3 Baso # (Auto) 0.0 (0.0-0.1) K/mm3 Abs Immat Gran (auto) 0.02 (0.00-0.031) K/mm3 Absolute Neuts (auto) 3.8 (1.3-6.7) K/mm3 Absolute Nucleated RBC 0.000 (0.0-0.012) K/mm3 Nucleated RBC % 0.0 (0.0-0.2) % Sodium 138 (137-145) mmol/L Potassium 3.7 (3.4-5.0) mmol/L Chloride 107 (98-107) mmol/L Carbon Dioxide 23 (22-30) mmol/L Anion Gap 8 (4-12) mmol/L BUN 10 (7-17) mg/dL Creatinine 0.51 L (0.7-1.0) mg/dL Estim Creat Clear Calc 124 ml/min Estimated GFR > 60 (59 - ) Glucose 95 (65-110) mg/dL Calcium 8.4 (8.4-10.2) mg/dL Total Bilirubin 0.2 (0.2-1.3) mg/dL AST 19 (14-36) U/L ALT 15 (6-35) U/L Alkaline Phosphatase 58 (38-126) U/L Total Protein 7.0 (6.3-8.2) g/dL Albumin 4.2 (3.5-5.1) g/dL Beta HCG, Quant 6888.90 mIU/ML Urine Color Yellow (Yellow) Urine Appearance Clear (Clear) Urine pH 6.5 (5.0-9.0) Ur Specific Garnett 1.017 (1.001-1.035) Urine Protein Negative (Negative) mg/dL Urine Glucose (UA) Negative (Negative) mg/dL Urine Ketones Negative (Negative) mg/dL Ur Blood (Man) Trace (Negative) Urine Nitrate Negative (Negative) Urine Bilirubin Negative (Negative) Urine Urobilinogen 1.0 (<2.0) mg/dL Leukocyte Esterase Rfl Negative (Negative) AMAYA/UL Urine RBC 6-10 H (0-2) /hpf Urine WBC 0-5 (0-3) /hpf Ur Squamous Epith Cells None seen (Few) /hpf Urine Bacteria None seen /hpf Urine Casts 0-2 Blood Type O Positive Antibody Screen Negative Screen Not Reportable Baby's Blood Type Not Reportable Baby's ALLY Not Reportable Doses of RhIg Required 0 Imaging Data Radiologist's impression: ITS Impressions Ultrasound 05/13/24 19:48 IMPRESSION: Intrauterine of uncertain viability, probably due to early gestational age. Recommend close clinical and sonographic follow-up. Estimated Gestational Age: 5 weeks, 3 days by mean gestational sac diameter. NENA by ultrasound 01/10/2025. Impressions Ultrasound 05/13/24 19:48 IMPRESSION: Intrauterine of uncertain viability, probably due to early gestational age. Recommend close clinical and sonographic follow-up. Estimated Gestational Age: 5 weeks, 3 days by mean gestational sac diameter. NENA by ultrasound 01/10/2025. Critical Care Time Critical Care Time Critical Care Time: No Discharge Plan Discharge Clinical Impression: Patient Disposition: Home, Self-Care Condition: Stable Instructions: (ED) Additional Instructions: RETURN IF SYMPTOMS ARE WORSENING , CALL YOUR FAMILY PHYSICIAN FOR APPOINTMENT, TAKE TYLENOL NEEDED FOR ACHES AND PAIN, CONTINUE HOME MEDICATIONS. GO TO OBGYN CLINIC IN 7 DAYS FOR FURTHER EVALUATION Patient Language: Czech Prescriptions: No Action Saline Nasal 0.65 % aerosol,spray 2 spray intranasal QID PRN (Reason: dry nasal passages) Qty: 44 0RF metronidazole 500 mg tablet 500 mg PO Q12H 7 Days Qty: 14 0RF methylprednisolone [Medrol (Edwin)] 4 mg tablets,dose pack See Rx Instructions .ROUTE .COMPLEX Qty: 21 0RF Rx Instructions: orally per package directions ondansetron 4 mg tablet,disintegrating 4 mg PO Q8H PRN (Reason: nausea and vomiting) Qty: 14 0RF prednisone 20 mg tablet 20 mg PO DAILY 5 Days Qty: 5 0RF famotidine 20 mg tablet 20 mg PO BID Qty: 14 0RF ondansetron 4 mg tablet,disintegrating 4 mg PO Q8H Qty: 14 0RF acetaminophen 650 mg tablet extended release 650 mg PO .q6 hr PRN (Reason: pain) Qty: 20 0RF ibuprofen 200 mg capsule 600 mg PO Q6H PRN (Reason: pain) Qty: 20 0RF Follow-up/Referrals: Regla,Catie Crespo [Primary Care Provider] -
[2024-05-13 18:32] VITALS: BP 136/67; PULSE 107; RESP 20; O2SAT 100
[2024-05-13] MEDS: SODIUM CHLORIDE 0.9% IV 1,000 ML 999 ML IV CONT (18:33)
--- OUTSIDE RECORDS SUMMARY | 2024-05-13 18:41 | XMS_ITS | Referral Summary ---
Author Organization [facility] at the Medical Office Building Address [address] [place] [address] Care Team Providers Care Marketing Rep Name Role Phone Zak Arauz MD Primary [...] # Disposition: Follow up task sent to [facility] scheduling pool. Desires discharge home today. [...] (05/14/2022): When she was seen in the [facility] there was concern for a dropped beats and a arrhythmia and she was referred to MFM. A arrhythmia was also heard in her primary OB office. She was scanned by [facility] (care everywhere) which did not note [...] risk , antepa rtum 05/12/2022 Overview (06/23/2022): [facility] RN: Mariah Rodriguez - [phone] [x] Full [facility] Care; [x] Blue Team Referring Provider: [facility] - Hamida Morales [x] Dating Criteria: [...] Valentin [x] Method of feeding: breast [x] Provider Network Mgr: [x] PP Depression Discussed: plan reviewed and [...] often do you attend chur ch or pentecostalism services? More than 4 times per year 06/30/2022 Do you belong to any clubs o r organizations such as baptism groups, unions, fraternal or athletic groups, or [...] place to sleep or slept in a longterm (including now)? No 06/30/2022 [place] Depression Scale Answer Date Recorded [place] Depression Scale Total 3 09/03/2022 The thought [...] on file Legal Sex Female 2:54 PM DIRECTOR OF CARDIOLOGY SERVICE LINE Gender Identity Not on file Sexual Orientation [...] GONORRHOEAE/C. TRACHOMATIS AMPLIFICATION STAT 02/05/2023 10:21 AM DIRECTOR OF CARDIOLOGY SERVICE LINE from Last 3 Months or Most Recently Relevant to Health Maintenance Results * N. gonorrhoeae/C. trachomatis Amplification Urine (02/05/2023 10:21 AM DIRECTOR OF CARDIOLOGY SERVICE LINE) C. trachomatis Not Detected Not Detected DEBBIE ARREOLA Comment:Testing performed by : [facility], [address] [place] [address]., [address] N. gonorrhoeae Not Detected Not Detected DEBBIE ARREOLA Comment: Interpretive Data This assay detects Chlamydia trachomatis and Neisseria gonorrhoeae by nucleic acid amplification testing (NAAT). This assay has been cleared by the [place] Food and Drug administration. The performance characteristics of this test have been verified by the [facility]. The performance characteristics of this test have not been evaluated in individuals less than 14 years of age. Current Interpretive Data last revised 2022. Testing performed by: [facility], [address] [place] [address], [place]., [address] Urine (None) 02/05/2023 10:2 1 AM DIRECTOR OF CARDIOLOGY SERVICE LINE 02/05/2023 10:30 AM DIRECTOR OF CARDIOLOGY SERVICE LINE us Ana [facility] MICROBIOLOGY - GENERAL ORDER RANDY Final Result CERNER [address] [place] [address] from Last 3 Months or Most Recently Relevant to Health Maintenance Insurance AETNA BETTER [facility] Member Subscriber Plan / Payer (Ef fective 2020-Present) Name:Davida Juan Relation to Subscriber:Self Name:Davida Juan Payer ID:[id number] (NAIC) Group ID:Not on file Type:MEDICAID RISK OTHER Address: [facility] [id number] [place] [id number] AETNA BETTER [facility] AETNA BETTER [facility] Advance Directives For more information, please contact: [phone] * Full Code (Latest Code Status on File) Date Activated Date Inactivated Comments 06/30/2022 12:39 AM 07/01/2022 8:58 PM * Full Code Date Activated Date Inactivated Comments 06/28/2022 9:29 PM 06/30/2022 12:39 AM Full CPR in case of cardiopulmonary arrest Care Teams Marketing Rep Relationship Specialty [place] [address] [place] [address] PCP - General Internal Medicine 03/16/22
--- OUTSIDE RECORDS SUMMARY | 2024-05-13 18:41 | XMS_ITS | Clinical Summary ---
Author Organization [facility] at the Medical Office Building Address [address] [place] [address] Care Team Providers Care Drop Wire Stringer Name Role Phone Zak Arauz MD Primary [...] # Disposition: Follow up task sent to [facility] scheduling pool. Desires discharge home today. Macrosomia [...] (05/14/2022): When she was seen in the [facility] there was concern for a dropped beats and a arrhythmia and she was referred to MFM. A arrhythmia was also heard in her primary OB office. She was scanned by [facility] (care everywhere) which did not note an [...] risk , antepa rtum 05/12/2022 Overview (06/23/2022): [facility] RN: Mariah Rodriguez - [phone] [x] Full [facility] Care; [x] Blue Team Referring Provider: [facility]'s [facility] - Hamida Morales [x] Dating Criteria: [...] Valentin [x] Method of feeding: breast [x] Mail Order Clerk: [x] PP Depression Discussed: plan reviewed and [...] any clubs o r organizations such as anglican groups, unions, fraternal or athletic groups, or [...] in a chcf (including now)? No 06/30/2022 [place] Depression Scale Answer Date Recorded [place] Depression Scale Total 3 09/03/2022 The thought [...] on file Legal Sex Female 2:54 PM RELATIONSHIP SPECIALIST Gender Identity Not on file Sexual Orientation [...] Epidur al N Livin g Complications:None Delivery Location:[facility] 2022 Term 39w 6d 21h 40m 21h 21m/0h 12m/0h 07m 4.29 kg (9 lb 7.3 oz) F Vagina l Combin ed Spinal /Epidu ral N Livin g 3 [address] ,[address] NELA Lugo , Carson Lauren MD Complications:Shoulder Dysto per Delivery Location:[facility] ([facility] 58LD) Last Filed Vital Signs [...] GONORRHOEAE/C. TRACHOMATIS AMPLIFICATION STAT 02/05/2023 10:21 AM RELATIONSHIP SPECIALIST from Last 3 Months or Most Recently Relevant to Health Maintenance Results * N. gonorrhoeae/C. trachomatis Amplification Urine (02/05/2023 10:21 AM RELATIONSHIP SPECIALIST) C. trachomatis Not Detected Not Detected DEBBIE ARREOLA Comment:Testing performed by : [facility], [address] [place] [address]., [id number] N. gonorrhoeae Not Detected Not Detected DEBBIE Comment: Interpretive Data This assay detects Chlamydia trachomatis and Neisseria gonorrhoeae by nucleic acid amplification testing (NAAT). This assay has been cleared by the [place] Food and Drug administration. The performance characteristics of this test have been verified by the [facility]. The performance characteristics of this test have not been evaluated in individuals less than 14 years of age. Current Interpretive Data last revised 2022. Testing performed by: [facility], [address] [place] [address]., [id number] Urine (None) 02/05/2023 10:2 1 AM RELATIONSHIP SPECIALIST 02/05/2023 10:30 AM RELATIONSHIP SPECIALIST us Ana Paula [facility] MICROBIOLOGY - GENERAL ORDER RANDY Final Result DEBBIE [address] [facility] Department [place] [address] from Last 3 Months or Most Recently Relevant to Health Maintenance Insurance AETNA [facility]TER [facility] AETNA [facility] AETNA BETTER [facility] Advance Directives For more information, please contact: [phone] * Full Code (Latest Code Status on File) Date Activated Date Inactivated Comments 06/30/2022 12:39 AM 07/01/2022 8:58 PM * Full Code Date Activated Date Inactivated Comments 06/28/2022 9:29 PM 06/30/2022 12:39 AM Full CPR in case of cardiopulmonary arrest Care Teams Drop Wire Stringer Relationship Specialty [place] [address] [place] [id number] PCP - General Internal Medicine 03/16/22
--- OUTSIDE RECORDS SUMMARY | 2024-05-13 18:42 | XMS_ITS | Clinical Summary ---
Author Organization [facility] Address [address] [place] [address] Care Team Providers Care Materials Coordinator Name Role Phone Unavailable Primary Care Provider Unavailabl e Source Comments [facility],non-owned Affiliates and Associated Physician Practices is amultiple site organization consisting of ambulatory clinics and hospital sitesin [place] and [place]. This disclosure is being madepursuant to the Care Everywhere program and may not contain all information available regarding this patient. Last updated 17.[facility] Allergies No known active allergies Social History [...]
--- OUTSIDE RECORDS SUMMARY | 2024-05-13 18:42 | XMS_ITS | CONTINUITY OF CARE DOCUMENT ---
Author Name jin abdi Address Unknown Organization [facility] Address [address] [address] [place] [address] Phone [phone] Care Team Providers Care Fpga Design Engineer Name Role Phone Sammie Coates MD Unavailable [phone] DASHAWN LOPEZ MD Unavailable [phone] DASHAWN LOPEZ MD Unavailable PROBLEMS Condition [...] In-person encounter Office Visit Sammie Coates MD [place] [facility] - In-person encounter Office Visit Donnie Hawkins MD [place] [facility] Cardiology examinationPregnancy with 35 completed weeks gestationSleep apnea, mildAnemia - In-person encounter Office Visit Sammie Coates MD [place] [facility] DizzinessConstipation - In-person encounter Office Visit Sammie Coates MD [place] [facility] - In-person encounter Office Visit Sammie Coates MD [place] [facility] PalpitationChest painShortness of breathDepressionPregnancy with 35 [...] mclain Fisher blood pressure, systolic 118 mm[Hg] [facility] [place] oxygen saturation, oximetry 98 % Thais Fisher [...] ewed - no changes required Pebbles Cross REGIONAL BUSINESS DEVELOPMENT MANAGER social history E&M S moking History: Richelle judd currently smokes every day. Pebbles Pachecori REGIONAL BUSINESS DEVELOPMENT MANAGER drug use no Pebbles Sanchezreri REGIONAL BUSINESS DEVELOPMENT MANAGER alcohol use no Pebbles Sanchezreri REGIONAL BUSINESS DEVELOPMENT MANAGER smoking status Current every day smoker V brent Pachecoparviz REGIONAL BUSINESS DEVELOPMENT MANAGER number of grandchildren Sammie Coates MD Pebbles Pachecori REGIONAL BUSINESS DEVELOPMENT MANAGER social history reviewed E&M revi ewed - no changes required Pebbles Pachecori REGIONAL BUSINESS DEVELOPMENT MANAGER social history E&M S moking History: Richelle judd is a former smoker. Pebbles Pachecori REGIONAL BUSINESS DEVELOPMENT MANAGER drug use no Pebbles Pachecori REGIONAL BUSINESS DEVELOPMENT MANAGER alcohol use no Pebbles Pachecori REGIONAL BUSINESS DEVELOPMENT MANAGER social history reviewed E&M revi ewed - no changes required Pebbles Pachecori INDER social history E&M S moking History: Richelle judd currently smokes every day. Pebbles Pachecoparviz LOVING smoking history, tot al pack/day 1 Niurka Bolaños cigarette use yes Niurka Bolaños smoking status Current every day smoker A andie Bolaños INSURANCE PROVIDERS Payer name Policy type / Coverage type [facility] alliance party ID AETNA [facility] Medicaid [id number] ADVANCE DIRECTIVES Name Date DISCUSSED - NO DECISION MADE TREATMENT PLAN Date Name Performer [id number],C, P binta still has palpitations off and [...] would recommend PCP follow up Brad Burrell [id number],C, P binta stil has chest pain HAS [...] GI to rule out GERD Brad Burrell [id number],C,H gb 9.9, this is likely culprit for her sxs, advised her to take her iron medication and follow up with TOW DRIVER, PCP Brad Burrell [id number],C, P binta still experiencing shortness of breath [...] O ISSUES WITH PREGANCY HAD DELIVERED AT [facility] G ETS SOB WITH WALKING OR S TARTED SMOKING 2-3 PER DAY N O PRIOR HX OF ASTHMA December 25, 2022 S he continues to be SOB with very minimal exertion, differential dx related to pulmonary process vs anemia Brad Burrell [id number],C, M ild sleep apnea per ecent sleep study 05/2021. Autopap/Cpap recommended WILL ARRANGE FOR CPAP/AUTOPAP December 04, 2022 H as not been able to get for a sleep titration study due to lack of child day care teacher Pebbles Cross NP [id number],S,C ONCLUSIONS: 1 . Normal left ventricular systolic [...] Sammie Coates MD, FACC Pebbles Tay LOVING [id number],S, P atient still has palpitations off and [...] IF SHE HAS RECURRENT SVE Pebbles Cross REGIONAL BUSINESS DEVELOPMENT MANAGER [id number],C, T he Patient was encouraged to stop smoking. Pebbles Cross REGIONAL BUSINESS DEVELOPMENT MANAGER [id number],S,N EEDS TO SEE GI SHE HAD NATURAL CHILDBIRTH AND HAS NOTICED ISSUES WIHT BM SINCE DELIVERY Pebbles Cross REGIONAL BUSINESS DEVELOPMENT MANAGER [id number],S, P atient still experiencing shortness of breath [...] O ISSUES WITH PREGANCY HAD DELIVERED AT [facility] G ETS SOB WITH WALKING OR S TARTED SMOKING 2-3 PER DAY N O PRIOR HX OF ASTHMA Pebbles Cross REGIONAL BUSINESS DEVELOPMENT MANAGER [id number],S, P atvivek stil has chest pain HAS HIATIAL HERNIA AND OR ACID REFLUX O K FOR MALLOX OR MYLANTA December 04, 2022 P binta reports sharp/stabbing mostly R sided chest pains S USPECT REPRODUCIBLE CP THE MAIN ISSUE SHE IS ALSO PENDING A GI W/U IN ISAIAH Cross REGIONAL BUSINESS DEVELOPMENT MANAGER [id number],C,Flow murmur n oted on exam Pebbles Cross REGIONAL BUSINESS DEVELOPMENT MANAGER [id number],C,P atvivek still has palpitations off and on [...] ocumented as isolated beats. Pebbles Sanchezdinah LOVING [id number],Russell,P binta still experiencing shortness of breath S [...] adequately assess the RVSP. Pebbles Tay LOVING [id number],C,M ild sleep apnea per ecent sleep study 05/2021. Autopap/Cpap recommended WILL ARRANGE FOR CPAP/AUTOPAP Pebbles Sanchezdinah LOVING [id number],Russell,P binta stil has chest pain HAS HIATIAL HERNIA AND OR ACID REFLUX O K FOR MALLOX OR MYLANTA Whitneyladonna Sanchezdinah LOVING [id number],C,T he Patient was encouraged to stop smoking. Pebbles Cross NP [id number],S,M AY BE MURMUR ASSOCIATED WITH WILL GET ECHO DONE Pebbles Cross REGIONAL BUSINESS DEVELOPMENT MANAGER [id number],S,P binta has had chest discomfort throughout her H HAD CHEST PAINS BEFORE LASTS FOR 5MIN AND ARE RECURRENT D OESNT RECALL HAVING ISSUES WITH FIRST Pebbles Cross REGIONAL BUSINESS DEVELOPMENT MANAGER [id number],S,P binta has been experiencing shortness of breath associated with chest discomfort throughout her G ETS SOB RECALLS WITH FIRST M AY BE RELATED TO ANEMIA A ND SMOKING M AY BE HAVING SLEEP APNEA Pebbles Pachecoparviz REGIONAL BUSINESS DEVELOPMENT MANAGER [id number],C,E KG n office today shows Sinus Tachycardia W ILL ARRANGE FOR TELE MONITOR FOR 2 WKS C HECK ECHO FOR MVP HAS MURMUR ON EXAM MAY BE FLOW RELATED MURMUR FROM Pebbles Pachecoparviz LOVING [id number],C,S inus Tachycardia per EKG in office today. C HECK FOR ANEMIA P T LOOKS PALE M AY NEED ADDITIONAL IRON SUPPLEMENTATION Pebbles Pachecoparviz LOVING Cardiology:F/u with PCP regarding anemia. Prior workup showed H gb 9.9, this is likely culprit for her sxs, advised her to take her iron medication and follow up with TOW DRIVER, PCP Sammie Coates MD Cardiology: T he [...] her iron medication and follow up with TOW DRIVER, PCP Brad Burrell Electrophysiology: Richelle judd still [...] O ISSUES WITH PREGANCY HAD DELIVERED AT [facility] G ETS SOB WITH WALKING OR [...] O ISSUES WITH PREGANCY HAD DELIVERED AT [facility] G ETS SOB WITH WALKING OR S TARTED SMOKING 2-3 PER DAY N O PRIOR HX OF ASTHMA Pebbles Cross NP Cardiology: Richelle judd stidejan has chest pain HAS HIATIAL HERNIA AND OR ACID REFLUX O K FOR MALLOX OR MYLANTA December 04, 2022 Ricehlle judd reports sharp/stabbing mostly R sided chest pains SUSPECT REPRODUCIBLE CP THE MAIN ISSUE SHE IS ALSO PENDING A GI W/U IN ISAIHA Cross NP Cardiology:Flow murmur noted on exam [...] REFLUX O K FOR MALLOX OR MYLANTA Peblbes Cross NP Cardiology:The Patie nt was encouraged [...] AY NEED ADDITIONAL IRON SUPPLEMENTATION Pebbles Sanchezdinah REGIONAL BUSINESS DEVELOPMENT MANAGER Date Name Sleep Study Holter Monitor [...]
--- OUTSIDE RECORDS SUMMARY | 2024-05-13 18:42 | XMS_ITS | Clinical Summary ---
Author Organization [facility] Address [id number] [place] [id number] Care Team Providers Care Preforming Machine Operator Name Role Phone Unavailable Primary Care Provider [...] patient's age to complete this topic Insurance [facility] MEDICAID
[2024-05-13 18:43] LABS: Basophils Percent Auto 0.4 % (0.2-1.2); Eosinophils Absolute Auto 0.2 K/mm3 (0-0.3); Eosinophils Percent Auto 3.3 % (0-4.4); Hematocrit 35.1 % (37.0-47.0); Hemoglobin 11.1 g/dL (12.0-15.0); Immature Granulocyte Absolute 0.02 K/mm3 (0.00-0.031); Immature Granulocyte Percent A 0.3 % (0-0.5); Lymphocytes Absolute Auto 2.18 K/mm3 (0.9-3.2); Lymphocytes Percent Auto 32.4 % (18.3-44.2); Mean Corpuscular HGB Conc 31.6 g/dl (32-36); Mean Corpuscular Hemoglobin 27.3 pg (26-34); Mean Corpuscular Volume 86.2 fl (80-100); Mean Platelet Volume 10.2 fl (7.4-10.4); Monocytes Absolute Auto 0.5 K/mm3 (0.1-0.6); Monocytes Percent Auto 6.8 % (2.6-8.5); Neutrophils Absolute Auto 3.8 K/mm3 (1.3-6.7); Neutrophils Percent Auto 56.8 % (45.5-73.1); Platelet Count Result 246 k/mm3 (150-375); Red Blood Count 4.07 M/mm3 (4.2-5.4); Red Cell Distribution Width 14.1 % (11.5-14.5); White Blood Count 6.7 K/mm3 (4.5-10.0)
[2024-05-13 18:53] LABS: Alanine Aminotransferase 15 U/L (6-35); Albumin Level 4.2 g/dL (3.5-5.1); Alkaline Phosphatase 58 U/L (38-126); Anion Gap 8 mmol/L (4-12); Aspartate Amino Transferase 19 U/L (14-36); Bilirubin,Total 0.2 mg/dL (0.2-1.3); Blood Urea Nitrogen 10 mg/dL (7-17); Calcium 8.4 mg/dL (8.4-10.2); Carbon Dioxide 23 mmol/L (22-30); Chloride 107 mmol/L (98-107); Estimated CRCL calculation 124 ml/min; Estimated Glomerular Filt Rate > 60; Glucose 95 mg/dL (65-110); Potassium 3.7 mmol/L (3.4-5.0); Sodium 138 mmol/L (137-145)
[2024-05-13 19:01] VITALS: BP 117/58; PULSE 95; RESP 18; O2SAT 100
[2024-05-13 20:16] LABS: Add Urine Microscopic? YES; Appearance Urine Clear (Clear); Bacteria Urine None Seen /hpf; Bilirubin Urine Negative (Negative); Blood Urine Trace (Negative); Color Urine Yellow (Yellow); Glucose Urine UA Negative (Negative); Ketones Urine Negative (Negative); Leukocyte Esterase Ur Negative LEU/UL (Negative); Nitrate Urine Negative (Negative); Non Pathogenic Casts 0-2; Protein Urine Negative (Negative); Specific Grav Ur 1.017 (1.001-1.035); Squamous Epithelial Cell Urine None Seen /hpf (Few); WBC Urine 0-5 /hpf (0-3); pH Urine 6.5 (5.0-9.0)
[2024-05-13 21:04] VITALS: BP 137/69; PULSE 88; RESP 18; O2SAT 100
== END 2024-05-13 21:08 | disposition home or self-care (01) ==
PROVIDERS: Emergency Provider Emergency Medicine; PCP Internal Medicine Infectious Disease
DX: O26.891 Other specified pregnancy related conditions, first trimester (principal); R10.9 Unspecified abdominal pain; F17.210 Nicotine dependence, cigarettes, uncomplicated; Z3A.01 Less than 8 weeks gestation of pregnancy
CPT/HCPCS: 36415; 76801; 80053; 81001; 84702; 85025; 85461; 86850; 86900; 86901; 96360; 99284; J7030

== ENCOUNTER 2024-06-20 18:52 | Emergency (ER) | payer MEDICAID, SELFPAY ==
--- NOTE | ~2024-06-20 | US_ITS ---
FIRST TRIMESTER ULTRASOUND 06/20/2024 20:00 CDT Ordering provider: Lexie Vegas PA-C History: . 10 weeks, abd pain . Comparison: None. FINDINGS: INTRAUTERINE GESTATIONAL SAC: Present. YOLK SAC: Present. Measures 0.5 x 0.3x 0.4 cm POLE: Present. Measures 4.2 cm which is equal to 11 weeks and 1 day. heart rate is 1 63 bpm GESTATIONAL AGE BY TODAY'S US: 11 weeks and 1 day UTERUS: The uterus measures 10.7x 9.7x 10.8 cm in length which is within normal limits. No myometrial masses. FREE FLUID: None. OVARIES: Normal in size with the right measuring 2.9x 2x 1.3 cm. and the left measuring 4.2x 2.5x 2.7 cm. Doppler flow is demonstrated within both ovaries. ADNEXAL MASSES: None. Possible midgut herniation is seen. IMPRESSION: Single live fetus of 11 weeks and 1 day. Reviewed, dictated and finalized at location A.
--- OUTSIDE RECORDS SUMMARY | 2024-06-20 18:54 | XMS_ITS | Clinical Summary ---
Author Organization [facility] at the Medical Office Building Address [address] [place] [id number] Care Team Providers Care Seat Joiner Name Role Phone Zak Arauz MD Primary [...] # Disposition: Follow up task sent to [facility] scheduling pool. Desires discharge home today. [...] (05/14/2022): When she was seen in the [facility] there was concern for a dropped beats and a arrhythmia and she was referred to MFM. A arrhythmia was also heard in her primary OB office. She was scanned by [facility] (care everywhere) which did not note [...] risk , antepa rtum 05/12/2022 Overview (06/23/2022): [facility] RN: Mariah Rodriguez - [phone] [x] Full [facility] Care; [x] Blue Team Referring Provider: [facility] - Hamida Morales [x] Dating Criteria: [...] Valentin [x] Method of feeding: breast [x] Digester Hand: [x] PP Depression Discussed: plan reviewed and [...] often do you attend chur ch or restorationist services? More than 4 times per year 06/30/2022 Do you belong to any clubs o r organizations such as yazdanism groups, unions, fraternal or athletic groups, or [...] in a retirement (including now)? 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 TRACHOMATIS AMPLIFICATION STAT 02/05/2023 10:21 AM TIN PLATER from Last 3 Months or Most Recently Relevant to Health Maintenance Results * N. gonorrhoeae/C. trachomatis Amplification Urine (02/05/2023 10:21 AM TIN PLATER) C. trachomatis Not Detected Not Detected DEBBIE RAREOLA Comment:Testing performed by : [facility], [address] [place] [address]., [id number] N. gonorrhoeae Not Detected Not Detected DEBBIE Comment: Interpretive Data This assay detects Chlamydia trachomatis and Neisseria gonorrhoeae by nucleic acid amplification testing (NAAT). This assay has been cleared by the [place] Food and Drug administration. The performance characteristics of this test have been verified by the [facility]. The performance characteristics of this test have not been evaluated in individuals less than 14 years of age. Current Interpretive Data last revised 2022. Testing performed by: [facility], [address] [place] [address]., [id number] Urine (None) 02/05/2023 10:2 1 AM TIN PLATER 02/05/2023 10:30 AM TIN PLATER us Ana Paula [facility] LAB MICROBIOLOGY - GENERAL ORDER RANDY Final Result EDBBIE [id number] [facility] Department [place] [address] from Last 3 Months or Most Recently Relevant to Health Maintenance Insurance AETNA [facility] AETNA [facility] AETNA [facility] Advance Directives For more information, please contact: [phone] * Full Code (Latest Code Status on File) Date Activated Date Inactivated Comments 06/30/2022 12:39 AM 07/01/2022 8:58 PM * Full Code Date Activated Date Inactivated Comments 06/28/2022 9:29 PM 06/30/2022 12:39 AM Full CPR in case of cardiopulmonary arrest Care Teams Seat Joiner Relationship Specialty [place] [address] [place] [id number] PCP - General Internal Medicine 03/16/22
--- OUTSIDE RECORDS SUMMARY | 2024-06-20 18:54 | XMS_ITS | Clinical Summary ---
Author Organization [facility] Address [address] [place] [phone] Care Team Providers Care Svp Chief Marketing Officer Name Role Phone Unavailable Primary Care [...] (1 of 3 - 19+ 3-dose series) 10/2019 CERVICAL CANCER SCREENING 2021 HPV/Cotest (21-29) 2021 PAP SMEAR 2021 INFLUENZA VACCINE (#1) 2023 Insurance [facility] MEDICAID
--- OUTSIDE RECORDS SUMMARY | 2024-06-20 18:54 | XMS_ITS | Referral Summary ---
Author Organization [facility] at the Medical Office Building Address [address] [place] [phone] Care Team Providers Care Contact Manager Name Role Phone Zak Arauz MD Primary [...] # Disposition: Follow up task sent to [facility] scheduling pool. Desires discharge home today. [...] (05/14/2022): When she was seen in the [facility] there was concern for a dropped beats and a arrhythmia and she was referred to MFM. A arrhythmia was also heard in her primary OB office. 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 More than 4 times per year 06/30/2022 Do you belong to any clubs o r organizations such as mormon groups, unions, fraternal or athletic groups, or [...] in a half-way (including now)? No 06/30/2022 Hack[place] Depression Scale Answer Date Recorded [place] Depression Scale Total 3 09/03/2022 The thought [...] on file Legal Sex Female 2:54 PM CHIEF CONTROLLER STATION Gender Identity Not on file Sexual Orientation [...] GONORRHOEAE/C. TRACHOMATIS AMPLIFICATION STAT 02/05/2023 10:21 AM CHIEF CONTROLLER STATION from Last 3 Months or Most Recently Relevant to Health Maintenance Results * N. gonorrhoeae/C. trachomatis Amplification Urine (02/05/2023 10:21 AM CHIEF CONTROLLER STATION) C. trachomatis Not Detected Not Detected DEBBIE ARREOLA Comment:Testing performed by : [facility], [address] [place] [address]., [address] N. gonorrhoeae Not Detected Not Detected DEBBIE ARREOLA Comment: Interpretive Data This assay detects Chlamydia trachomatis and Neisseria gonorrhoeae by nucleic acid amplification testing (NAAT). This assay has been cleared by the [place] Food and Drug administration. The performance characteristics of this test have been verified by the [facility]. The performance characteristics of this test have not been evaluated in individuals less than 14 years of age. Current Interpretive Data last revised 2022. Testing performed by: [facility], [address] [place] [address], [place]., [address] Urine (None) 02/05/2023 10:2 1 AM CHIEF CONTROLLER STATION 02/05/2023 10:30 AM CHIEF CONTROLLER STATION us Ana Paula ROMERO LAB MICROBIOLOGY - GENERAL ORDER RANDY Final Result CERNER [address] [place] [address] from Last 3 Months or Most Recently Relevant to Health Maintenance Insurance AETNA [facility] Member Subscriber Plan / Payer (Ef fective 2020-Present) Name:Davida Juan Relation to Subscriber:Self Name:Davida Juan Payer ID:[id number] (NAIC) Group ID:Not on file Type:MEDICAID RISK OTHER Address: [facility] [id number] [place] [id number] AETNA [facility] AETNA [facility] Advance Directives For more information, please contact: [phone] * Full Code (Latest Code Status on File) Date Activated Date Inactivated Comments 06/30/2022 12:39 AM 07/01/2022 8:58 PM * Full Code Date Activated Date Inactivated Comments 06/28/2022 9:29 PM 06/30/2022 12:39 AM Full CPR in case of cardiopulmonary arrest Care Teams Contact Manager Relationship Specialty [place] [address] [place] [address] PCP - General Internal Medicine 03/16/22
--- OUTSIDE RECORDS SUMMARY | 2024-06-20 18:54 | XMS_ITS | Clinical Summary ---
Author Organization [facility] Address [address] [place] [address] Care Team Providers Care Center Aisle Cashier Name Role Phone Unavailable Primary Care Provider Unavailabl e Source Comments [facility],non-owned Affiliates and Associated Physician Practices is amultiple site organization consisting of ambulatory clinics and hospital sitesin [place], [place], [place] and [place]. This disclosure is being madepursuant to the Care Everywhere program and may not contain all information available regarding this patient. Last updated 17.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
--- OUTSIDE RECORDS SUMMARY | 2024-06-20 18:54 | XMS_ITS | CONTINUITY OF CARE DOCUMENT ---
Author Name jin abdi Address Unknown Organization [facility] Address [address] [place] [address] Phone [phone] Care Team Providers Care Bilingual Kindergarten Teacher Name Role Phone Sammie Coates MD Unavailable [phone] DASHAWN LOPEZ MD Unavailable DASHAWN LOPEZ MD Unavailable [phone] PROBLEMS Condition Status Date Provider Notes [...] In-person encounter Office Visit Sammie Coates MD [place] [facility] - In-person encounter Office Visit Donnie Hawkins MD [place] [facility] Cardiology examinationPregnancy with 35 completed weeks gestationSleep apnea, mildAnemia - In-person encounter Office Visit Sammie Coates MD [place] [facility] DizzinessConstipation - In-person encounter Office Visit Sammie Coates MD [place] [facility] - In-person encounter Office Visit Sammie Coates MD [place] [facility] PalpitationChest painShortness of breathDepressionPregnancy with 35 [...] Coates MD blood pressure, diastolic 63 mm[Hg] Mayr Anne [employer]ic blood pressure, systolic 118 mm[Hg] Lissy kLogic blood pressure, diastolic 63 mm[Hg] Blank mclain Fisher blood pressure, systolic 118 mm[Hg] [facility] bulmaro Jetmore oxygen saturation, oximetry 98 % Thais Fisher [...] ewed - no changes required Pebbles Cross LEAD DATABASE ADMINISTRATOR social history E&M S moking History: Richelle judd currently smokes every day. Pebbles Pachecori LEAD DATABASE ADMINISTRATOR drug use no Pebbles Sanchezreri LEAD DATABASE ADMINISTRATOR alcohol use no Pebbles Sanchezreri LEAD DATABASE ADMINISTRATOR smoking status Current every day smoker V brent Pachecoparviz LEAD DATABASE ADMINISTRATOR number of grandchildren Sammie Coates MD Pebbles Pachecori LEAD DATABASE ADMINISTRATOR social history reviewed E&M revi ewed - no changes required Pebbles Pachecori LEAD DATABASE ADMINISTRATOR social history E&M S moking History: Richelle judd is a former smoker. Pebbles Pachecori LEAD DATABASE ADMINISTRATOR drug use no Pebbles Pachecori LEAD DATABASE ADMINISTRATOR alcohol use no Pebbles Pachecori LEAD DATABASE ADMINISTRATOR social history reviewed E&M revi ewed - no changes required Pebbles Pachecori INDER social history E&M S moking History: Richelle judd currently smokes every day. Pebbles Pachecoparviz LOVING smoking history, tot al pack/day 1 Niurka Bolaños cigarette use yes Niurka Bolaños smoking status Current every day smoker A andie Bolaños INSURANCE PROVIDERS Payer name Policy type / Coverage type Counts include 234 beds at the [facility] republican ID [employer] [facility] Medicaid [id number] ADVANCE DIRECTIVES Name Date DISCUSSED - NO DECISION MADE TREATMENT PLAN Date Name Performer [id number],C, P binta still has palpitations off and [...] would recommend PCP follow up Brad Burrell [id number],C, P binta stil has chest pain HAS [...] GI to rule out GERD Brad Burrell [id number],C,H gb 9.9, this is likely culprit for her sxs, advised her to take her iron medication and follow up with [facility], PCP Brad Burrell [id number],C, P binta still experiencing shortness of breath [...] O ISSUES WITH PREGANCY HAD DELIVERED AT [facility] G ETS SOB WITH WALKING OR S TARTED SMOKING 2-3 PER DAY N O PRIOR HX OF ASTHMA December 25, 2022 S he continues to be SOB with very minimal exertion, differential dx related to pulmonary process vs anemia Brad Burrell [id number],C, M ild sleep apnea per ecent sleep study 05/2021. Autopap/Cpap recommended WILL ARRANGE FOR CPAP/AUTOPAP December 04, 2022 H as not been able to get for a sleep titration study due to lack of child life specialist Pebbles Cross NP [id number],S,C ONCLUSIONS: 1 . Normal left ventricular systolic [...] Sammie Coates MD, FACC Pebbles Tay LOVING [id number],S, P atient still has palpitations off and [...] IF SHE HAS RECURRENT SVE Pebbles Cross LEAD DATABASE ADMINISTRATOR [id number],C, T he Patient was encouraged to stop smoking. Pebbles Cross LEAD DATABASE ADMINISTRATOR [id number],S,N EEDS TO SEE GI SHE HAD NATURAL CHILDBIRTH AND HAS NOTICED ISSUES WIHT BM SINCE DELIVERY Pebbles Cross LEAD DATABASE ADMINISTRATOR [id number],S, P atient still experiencing shortness of breath [...] O ISSUES WITH PREGANCY HAD DELIVERED AT [facility] G ETS SOB WITH WALKING OR S TARTED SMOKING 2-3 PER DAY N O PRIOR HX OF ASTHMA Pebbles Cross LEAD DATABASE ADMINISTRATOR [id number],S, P atvivek stil has chest pain HAS HIATIAL HERNIA AND OR ACID REFLUX O K FOR MALLOX OR MYLANTA December 04, 2022 P binta reports sharp/stabbing mostly R sided chest pains S USPECT REPRODUCIBLE CP THE MAIN ISSUE SHE IS ALSO PENDING A GI W/U IN ISAIAH Cross LEAD DATABASE ADMINISTRATOR [id number],C,Flow murmur n oted on exam Pebbles Cross LEAD DATABASE ADMINISTRATOR [id number],C,P atvivek still has palpitations off and on [...] ocumented as isolated beats. Pebbles Sanchezdinah LOVING [id number],Russell,P binta still experiencing shortness of breath S [...] adequately assess the RVSP. Pebbles Tay LOVING [id number],C,M ild sleep apnea per ecent sleep study 05/2021. Autopap/Cpap recommended WILL ARRANGE FOR CPAP/AUTOPAP Pebbles Sanchezdinah LOVING [id number],Russell,P binta stil has chest pain HAS HIATIAL HERNIA AND OR ACID REFLUX O K FOR MALLOX OR MYLANTA Whitneyladonna Sanchezdinah LOVING [id number],C,T he Patient was encouraged to stop smoking. Pebbles Cross NP [id number],S,M AY BE MURMUR ASSOCIATED WITH WILL GET ECHO DONE Pebbles Cross LEAD DATABASE ADMINISTRATOR [id number],S,P binta has had chest discomfort throughout her H HAD CHEST PAINS BEFORE LASTS FOR 5MIN AND ARE RECURRENT D OESNT RECALL HAVING ISSUES WITH FIRST Pebbles Cross LEAD DATABASE ADMINISTRATOR [id number],S,P binta has been experiencing shortness of breath associated with chest discomfort throughout her G ETS SOB RECALLS WITH FIRST M AY BE RELATED TO ANEMIA A ND SMOKING M AY BE HAVING SLEEP APNEA Pebbles Pachecoparviz LEAD DATABASE ADMINISTRATOR [id number],C,E KG n office today shows Sinus Tachycardia W ILL ARRANGE FOR TELE MONITOR FOR 2 WKS C HECK ECHO FOR MVP HAS MURMUR ON EXAM MAY BE FLOW RELATED MURMUR FROM Pebbles Pachecoparviz LOVING [id number],C,S inus Tachycardia per EKG in office today. C HECK FOR ANEMIA P T LOOKS PALE M AY NEED ADDITIONAL IRON SUPPLEMENTATION Pebbles Pachecoparviz LOVING Cardiology:F/u with PCP regarding anemia. Prior workup showed H gb 9.9, this is likely culprit for her sxs, advised her to take her iron medication and follow up with [facility], PCP Sammie Coates MD Cardiology: T he Patient was encouraged to stop smoking. Sammie Coates MD Cardiology: M ild sleep apnea per ecent sleep study 05/2021. Autopap/Cpap recommended WILL ARRANGE FOR CPAP/AUTOPAP December 04, 2022 H as not been able to get for a sleep titration study due to lack of child life specialist Sammie Coates MD Cardiology:Repeat sl eep study [...] her iron medication and follow up with [facility], PCP Brad Burrell Electrophysiology: Richelle judd still [...] O ISSUES WITH PREGANCY HAD DELIVERED AT [facility] G ETS SOB WITH WALKING OR [...] titration study due to lack of child life specialist Pebbles Cross NP Cardiology:CONCLUSIO NS: 1 . [...] O ISSUES WITH PREGANCY HAD DELIVERED AT [facility] G ETS SOB WITH WALKING OR [...] AY NEED ADDITIONAL IRON SUPPLEMENTATION Pebbles Sanchezdinah LEAD DATABASE ADMINISTRATOR Date Name Sleep Study Holter Monitor 48 [...]
--- OUTSIDE RECORDS SUMMARY | 2024-06-20 18:54 | XMS_ITS | Data Portability ---
Author Organization [place] [facility] [employer], Main Office Address [address] [place] [address] Assessment Encounter Date Assessment Date Assessment LastModified by Organization Details LastModified Time 01/27/2023 01/27/2023 Assessment: Nicotine Mild OSAHS, AHI = 8 PLMD Hypoventilation Plan: The following were reviewed and explained to the patient: primary care/referral note [facility] home sleep study 05/27/22 AHI = [...] Follow-up: 1 week after titration sleep study [email or web address] Not available 01/27/2023 09:51:51 05/27/2023 05/27/2023 Assessment: Rhinitis Mild OSAHS, AHI = 8 Plan: The following were reviewed and explained to the patient: [facility] home sleep study 05/27/22 AHI = 8, supine AHI = 10 [facility] titration sleep study 05/15/23 sleep onset = [...] carrier. Patient will setup an appointment with [facility] for supplies and pressure adjustments. [...] 0.53 L (35%), DLCO 63%, DLCO/VA 80% [facility] home sleep study 05/27/22 AHI = 8, supine AHI = 10 [facility] titration sleep study 05/15/23 sleep onset = [...] carrier. Patient will setup an appointment with [facility] for supplies and pressure adjustments. [...] arnel, titration study - Auth approved, auth# [id number] 21, valid 01/27/23 - 11/28/232022 023 [facility], [address] [place], [address], 4 15:31:05 Medication Orders None recorded. Patient TargetsNo targets recorded. Patient InstructionsNo instructions recorded. Reason for Referral None Reported. Results Created Date Observation Date Name Description Value Unit Range Abnormal Flag Note LastModifiedBy Organization Detail LastModifiedTime 06/29/19 24 05/15/2023 polys omnog arnel, titra tion study No observ ation record ed. [facility] [address] [place], [address], 06/29/2023 15:12:39 07/29/19 24 07/28/2023 compl ete PFT w/ post [facility] hodil ator ashlie metry * No observ ation record ed. BARCODE Not Available 2023 12:22:29 Result Notes None recorded. 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 Procedures Surgical History None recorded. Imaging Results Imaging Date Name Status LastModified by Organization Details LastModified Time 05/15/2023 polysomnogram, titration study completed BARCODE [facility] [address] [place], [address], 06/29/2023 15:12:39 07/28/2023 complete PFT w/ post [...] Address Organization Details Last Updated DateTime 3 24054.6 7 g 25.4 kg/m2 162.56 cm 98.1 [degF] 76 /min 98 % 98 % 118 mm[Hg] 76 mm[Hg] Sandra Green MA [facility] [employer] [facility] 3 09:19:25 Date Recorded Heart rate Respiratory rate Provider N kings and Address Organization Details Last Updated DateTime 01/27/2023 76 /min 15 /min Rick Sargent MD [address] [facility] [address], [place], [address], [facility] [employer] 01/27/2023 09:47:39 Date Recorded Body height Body mass index (BMI) Body weight Oxygen saturation Oxygen saturation in Arterial blood by Pulse oximetry Body temperature Systolic blood pressure Diastolic blood pressure Provider Name and Address Organization Details Last Updated DateTime 4 162.56 cm 24.2 kg/m2 05828.5 2 g 98 % 98 % 97.2 [degF] 120 mm[Hg] 76 mm[Hg] Jax Hairston CMA [facility] [employer] 4 09:35:32 Date Recorded Heart rate Heart rate Respiratory rate Provider Name and Address Organization Details Last Updated DateTime 05/27/2023 98 /min 98 /min 15 /min Rick Sargent MD [address], [place], [address], [facility] [employer] 05/27/2023 10:19:19 Date Recorded Body height Body mass index (BMI) Body weight Oxygen saturation Oxygen saturation in Arterial blood by Pulse oximetry Systolic blood pressure Diastolic blood pressure Provider Name and Address Organization Details Last Updated DateTime 4 162.56 cm 24.9 kg/m2 15571.8 9 g 98 % 98 % 118 mm[Hg] 68 mm[Hg] Jax Hairston CMA [facility] [employer] [facility] 4 15:26:25 Date Recorded Heart rate Heart rate Body temperature Respiratory rate Provider Name and Address Organization Details Last Updated DateTime 08/26/2023 108 /min 108 /min 98.1 [degF] 14 /min Rick Sargent MD [address] [facility], [facility] [address], [place], [address] , [employer] 08/26/2023 15:59:25 Social History Question Answer Notes LastModified by [employer] ion Details LastModified Time Tobacco Smoking Status Current Every Day Smoker Sandra Green MA null, [employer] [facility] [employer] 01/27/2023 09:15:26 What Is Your Level Of Caffeine Consumption? [...] PPD Information not available 01/27/2023 Do You Use Sunscreen Routinely? No Information not available 01/27/2023 Have You Recently Traveled Abroad? No Information not available 01/27/2023 Do You Have Any Dietary Restrictions? No Information not available 01/27/2023 Sex: Unknown Functional Status Question Answer Note LastModified by Organizat ion Details LastModified Time Do you use any illicit or recreational drugs? No Information not available 01/27/2023 What is your level of alcohol consumption? None Information not available 01/27/2023 Have you been exposed to chemicals or toxins? unsure Information not available 01/27/2023 What is your exercise level? Occasional Information not available 01/27/2023 Mental Status Question Answer Note LastModified by Organization D etails LastModified Time Do you feel stressed (tense, restless, nervous, or anxious, or unable to sleep at night)? [id number] Information not available 01/27/2023 Family History Relationship Description Onset Age of this Age Resolved Age Notes LastModified by Organization Details LastModified Time Paternal Aunt Obstructive sleep apnea syndrome Not available 2022 09:46:43 Paternal Grandmother Heart disease deu5 Not available 2022 09:47:11 Sister Asthma [facility]5 Not available 09:52:15 Medical History No medical history recorded. Gynecological HistoryNo gynecological history recorded. Obstetrics History GPAL:G 0 P 0 0 0 0 Past Encounters Encounter ID Performer Location Encounter Start Date Encounter Closed Date Diagnosis/Indication Diagnosis SNOMED-CT Code Diagnosis ICD10 Code Diagnosis Note [id number] Rick Sargent MD [facility] [address] [address] 01/27/2023 09:01:49 01/28/2023 08:54:47 Obstructive sleep apnea syndrome 89220104 G47.33 G47.36 G47.61 [id number] Rick Sargent MD [facility] [address] [address] 05/27/2023 09:22:09 05/28/2023 08:43:41 Obstructive sleep apnea syndrome 96983579 G47.33 [id number] MD TERRY [facility] [address] [address] 08/26/2023 15:07:03 08/27/2023 08:09:56 Obstructive sleep apnea syndrome 14049881 G47.33 Health Concerns Section Related Observation LastModified [...] (MEDICAID REPLACEMENT - HMO) Davida Mayer Drake [id number] Davida Mayer Drake 05/27/2023 1 [employer] [place] AFTER 2020 (MEDICAID REPLACEMENT - HMO) Davida Mayer Juan [id number] Davida Mayer Drake 08/26/2023 1 [employer] [place] (MEDICAID REPLACEMENT - HMO) Davida Mayer Drake [id number] Davida Mayer Juan Notes Date Note Type Note Provider Name and Address Organization Details Recorded Time 01/27/2023 text/html Primary care/Ref erring provider: Sammie Coates MD During the [facility] home sleep study on 05/27/22 AHI [...] moderate chance of dozing. Rick Sargent MD [address] [place] [address], [address], [place] [facility] 01/27/2023 09:58:37 05/27/2023 text/html Primary care/Ref erring provider: Zak Arauz MD; Sammie Coates MD During the [facility] home sleep study on 05/27/22 AHI = 8, supine AHI = 10. During the [facility] titration sleep study on 05/15/23, sleep onset = 17 minutes, REM onset = 185.5 minutes. The patient uses a [employer] AirSense 11 autoset unit with heated humidification. The patient does not need the ramp to start low and go up slowly on the pressure. There is no xerostomia in a.m. There is no hose/mask condensation with water. The patient wears a [employer] small Veronika nasal mask without chin strap. [...] moderate chance of dozing. Rick Sargent MD [address] [place] [address], [facility] [address], [place], [address], [facility] 06/11/2023 08:45:56 08/26/2023 text/html Primary care/Ref erring provider: Zak Arauz MD; Sammie Coates MD CC: My compliance rate is down as my older daughter won't go to sleep until late. During the [facility] home sleep study on 05/27/22 AHI = 8, supine AHI = 10. During the [facility] titration sleep study on 05/15/23, sleep onset [...] water. The patient wears a [employer] small Veronika nasal mask without chin strap. [...] moderate chance of dozing. Rick Sargent MD [address] [place] [address], [place], [address], [facility] [email or web address] 08/26/2023 16:07:27 OBGyn Episode No OBEpisode recorded.
--- OUTSIDE RECORDS SUMMARY | 2024-06-20 18:54 | XMS_ITS | Data Portability ---
Author Organization Wayin Verold , [facility] Address [address] [place] [address] Assessment No assessment recorded. Plan of Treatment Reminders Order Date Submit Date Provider Last Modified By Organization Details Last Modified Time Details Appointments OB RETURN EST 2024 01:00P MARY LOU MANCIA Not available Not available Not available Lab urinal ysis, dipsti ck 2024 025 [email or web address] [facility], [address] [place], [address], 05/29/2024 15:36:22 cultur e, urine 2024 025 [email or web address] [facility], [address] [place], [address], 05/30/2024 22:29:40 beta-H CG, quanti tative , serum or plasma 2024 025 [facility], [address] [place] [address], [address], 05/16/2024 11:52:49 pregna ncy test, urine 2023 024 [email or web address] [facility], [facility] [place], [address], 12/23/2023 12:17:59 beta-H CG, quanti tative , serum or plasma 2023 024 [facility], [address] [place] [address], [address], 12/24/2023 11:22:59 CBC w/ auto diff 2023 024 [facility], [address] [place] [address], [address], 12/24/2023 16:24:37 urinal ysis, dipsti ck 2023 024 [email or web address] [facility], [address] [place], [address], 11/03/2023 15:41:36 cultur e, urine 2023 024 [email or web address] [facility], [address] [place], [address], 11/05/2023 03:44:30 bacter ial vagino sis + vagini tis panel, vagina l 2023 024 [facility], [address] [place] [address], [address], 11/05/2023 15:02:47 unlist ed lab - STD screen ing ([facility]) 2023 024 [facility], [address] [place] [address], [address], 11/04/2023 18:03:53 cultur e, urine 2023 024 [email or web address] [facility], [address] [place], [address], 09/27/2023 13:18:17 urinal ysis comple te, reflex cultur e 2023 024 [email or web address] Bismark [facility], [address] [place], [address], 10/19/2023 17:10:39 bacter ial vagino sis + vagini tis panel, vagina l 2023 024 [facility], [address] [place], [address], 09/24/2023 13:26:12 iron + total iron-b inding capaci ty (TIBC) , serum 2023 KATHLEENInvenQuery [facility], [address] [place], [address], 09/27/2023 13:18:14 transf jan, serum 2023 KATHLEENInvenQuery [facility], [address] [place], [address], 09/27/2023 13:18:15 ferrit in, serum or plasma 2023 KATHLEENInvenQuery [facility], [address] [place], [address], 09/27/2023 13:18:16 iron, serum 2023 024 [email or web address] [facility], [address] [place], [address], 10/19/2023 17:10:39 hemogl obinop athy profil e, blood 2023 KATHLEENInvenQuery [facility], [address] [place], [address], 09/27/2023 13:18:16 CBC w/ auto diff 2023 [facility], [address] [place], [address], 09/24/2023 11:58:37 Referral None record ed. Procedures None record ed. Surgeries None record ed. Imaging US, obstet samara, transv aginal 2024 025 KATHLEEN Not available 05/29/2024 19:21:35 US, transv aginal 2024 025 KATHLEEN Not available 05/16/2024 08:41:49 US, transv aginal 2023 024 [email or web address] Not available 12/23/2023 14:19:37 US, transv aginal 2023 024 KATHLEEN Not available 11/05/2023 07:06:51 Medication Orders nicoti ne 14 mg/24 hr daily transd ermal patch 2024 025 [id number], [address], [place], [address], 05/29/2024 15:37:09 pyrido xine (vitam in B6) 25 mg tablet 2024 025 [id number], [address], [place], [address], 05/29/2024 15:36:24 Unisom (doxyl amine) 25 mg tablet 2024 025 [id number], [address], [place], [address], 05/29/2024 15:36:24 Prenat al 28 mg iron-8 00 mcg tablet 2024 025 [id number], [address], [place], [address], 05/29/2024 16:29:59 tranex amic acid 650 mg tablet 2023 024 [email or web address] [facility] #[id number], [address], [place], [address], 12/23/2023 11:28:23 Prenat al 28 mg iron-8 00 mcg tablet 2023 024 [id number], [address], [place], [address], 12/23/2023 11:28:21 Patient TargetsNo targets recorded. Patient Instructions Encounter Date Encounter Id Patient Instructions Last Modified By Organization Details Last Modified Time 09/23/2023 [id number] Urinary Tract Infection (UTI) in Women: Care Instructions [email or web address] Not available 09/23/2023 16:06:56 Reason for Referral None Reported. Results Created Date Observation Date Name Description Value Unit Range Abnormal Flag Note LastModifiedBy Organization Detail LastModifiedTime 09/23/19 24 09/24/2023 CBC (INCL UDES DIFF/ PLT) WBC 8.4 thous and/u L 4.0 - 9.8 normal [place], [address], 09/24/2023 11:58:37 09/23/19 24 09/24/2023 CBC (INCL UDES DIFF/ PLT) RBC 4.5 kimberley on/uL 3.9 - 4.9 normal [place], [address], 09/24/2023 11:58:37 09/23/19 24 09/24/2023 CBC (INCL UDES DIFF/ PLT) hemoglobin 12.4 g/dL 11.8 - 14.8 normal [place], [address], 09/24/2023 11:58:37 09/23/19 24 09/24/2023 CBC (INCL UDES DIFF/ PLT) hematocrit 38.7 % 35.5 - 44.0 normal [place], [address], 09/24/2023 11:58:37 09/23/19 24 09/24/2023 CBC (INCL UDES DIFF/ PLT) MCV 86.4 fL 82.0 - 99.0 normal [place], [address], 09/24/2023 11:58:37 09/23/19 24 09/24/2023 CBC (INCL UDES DIFF/ PLT) MCH 27.7 pg 27.2 - 32.6 normal [place], [address], 09/24/2023 11:58:37 09/23/19 24 09/24/2023 CBC (INCL UDES DIFF/ PLT) MCHC 32.0 g/dL 31.5 - 35.5 normal Not Available [address], [address], 09/24/2023 11:58:37 09/23/19 24 09/24/2023 CBC (INCL UDES DIFF/ PLT) RDW-CV 14.4 % 11.5 - 14.5 normal Not Available [address], [address], 09/24/2023 11:58:37 09/23/19 24 09/24/2023 CBC (INCL UDES DIFF/ PLT) platelet 298 thous and/u L 140 - 350 normal Not Available [address], [address], 09/24/2023 11:58:37 09/23/19 24 09/24/2023 CBC (INCL UDES DIFF/ PLT) MPV 11.2 fL 9.3 - 12.4 normal Not Available [address], [address], 09/24/2023 11:58:37 09/23/19 24 09/24/2023 CBC (INCL UDES DIFF/ PLT) absolute neutrophil 5.03 thous and/u L 1.90 - 7.00 normal Not Available [address], [address], 09/24/2023 11:58:37 09/23/19 24 09/24/2023 CBC (INCL UDES DIFF/ PLT) absolute lymphocyte 2.39 thous and/u L 0.70 - 4.50 normal Not Available [address], [address], 09/24/2023 11:58:37 09/23/19 24 09/24/2023 CBC (INCL UDES DIFF/ PLT) absolute monocyte 0.61 thous and/u L 0.10 - 1.30 normal Not Available [address], [address], 09/24/2023 11:58:37 09/23/19 24 09/24/2023 CBC (INCL UDES DIFF/ PLT) absolute eosinophil 0.32 thous and/u L <0.70 normal Not Available [address], [address], 09/24/2023 11:58:37 09/23/19 24 09/24/2023 CBC (INCL UDES DIFF/ PLT) absolute basophil 0.04 thous and/u L <0.20 normal Not Available [address], [address], 09/24/2023 11:58:37 09/23/19 24 09/24/2023 CBC (INCL UDES DIFF/ PLT) absolute immature granulocyte 0.02 thous and/u L <0.03 normal Not Available [address], [address], 09/24/2023 11:58:37 09/23/19 24 09/24/2023 VAGIN ITIS PLUS STD PANEL bacterial vaginosis BV POS negati ve abnormal Not Available [address], [address], 09/24/2023 13:26:12 09/23/19 24 09/24/2023 VAGIN ITIS PLUS STD PANEL austin species C. spp POS negati ve abnormal Not Available [address], [address], 09/24/2023 13:26:12 09/23/19 24 09/24/2023 VAGIN ITIS PLUS STD PANEL austin glabrata C. gla neg negati ve normal Not Available [address], [address], 09/24/2023 13:26:12 09/23/19 24 09/24/2023 VAGIN ITIS PLUS STD PANEL trichomonas vaginalis CV/TV TRICH neg negati ve normal Not Available [facility] [address] [place], [address], 09/24/2023 13:26:12 09/23/19 24 09/24/2023 VAGIN ITIS PLUS STD PANEL chlamydia trachomatis CT neg negati ve normal This repor t is inten ded for us in clini tana monit oring and manag ement of patie nts. It is not inten ded for use in medic al-le gal appli catio n. Not Available [facility] [address] [place], [address], 09/24/2023 13:26:12 09/23/19 24 09/24/2023 VAGIN ITIS PLUS STD PANEL neisseria gonorrhoeae GC neg negati ve normal This repor t is inten ded for us in clini tana monit oring and manag ement of patie nts. It is not inten ded for use in medic al-le gal appli catio n. Not Available [facility] [address] [place], [address], 09/24/2023 13:26:12 09/23/19 24 09/27/2023 IRON AND TOTAL IRON JUSTINE NG CAPAC ITY iron, total 35 mcg/d L 40-190 low Not Available [employer] [place] [address] [place], [address], 09/27/2023 13:18:14 09/23/19 24 09/27/2023 IRON AND TOTAL IRON JUSTINE NG CAPAC ITY iron binding capacity 452 mcg/d L_(ca lc) 250-45 0 high Not Available [facility] [place] [address] [place], [address], 09/27/2023 13:18:14 09/23/19 24 09/27/2023 IRON AND TOTAL IRON JUSTINE NG CAPAC ITY % saturation 8 %_(ca lc) 16-45 low Not Available [facility] [place] [address] [place], [address], 09/27/2023 13:18:14 09/23/19 24 09/27/2023 URINA LYSIS , COMPL ETE color TNP TEST NOT PERFO RMED No suita ble speci men recei kailee. Pleas e revie w the test requi remen ts at testd irect ory.q uestd iagno [email or web address] Not Available [address], [address], 09/27/2023 13:18:15 09/23/19 24 09/27/2023 TRANS FILI N transferrin 353 mg/dL 188-34 1 high Not Available [address], [address], 09/27/2023 13:18:15 09/23/19 24 09/27/2023 HEMOG LOBIN OPATH Y EVALU ATION red blood cell count 4.56 kimberley on/uL 3.80-5 .10 Not Available [address], [address], 09/27/2023 13:18:16 09/23/1909/27/2023 HEMOG LOBIN OPATH Y EVALU ATION hemoglobin 12.5 g/dL 11.7-1 5.5 Not Available [address], [address], 09/27/2023 13:18:16 09/23/19 24 09/27/2023 HEMOG LOBIN OPATH Y EVALU ATION hematocrit 41.5 % 35.0-4 5.0 Not Available [address], [address], 09/27/2023 13:18:16 09/23/1909/27/2023 HEMOG LOBIN OPATH Y EVALU ATION MCV 91.0 fL 80.0-1 00.0 Not Available [address], [address], 09/27/2023 13:18:16 09/23/19 24 09/27/2023 HEMOG LOBIN OPATH Y EVALU ATION MCH 27.4 pg 27.0-3 3.0 Not Available [address], [address], 09/27/2023 13:18:16 09/23/19 24 09/27/2023 HEMOG LOBIN OPATH Y EVALU ATION RDW 14.1 % 11.0-1 5.0 Not Available [address], [address], 09/27/2023 13:18:16 09/23/1909/27/2023 HEMOG LOBIN OPATH Y EVALU ATION hemoglobin A 97.4 % >96.0 Not Available [address], [address], 09/27/2023 13:18:16 09/23/1909/27/2023 HEMOG LOBIN OPATH Y EVALU ATION hemoglobin F <1.0 % <2.0 Not Available [address], [address], 09/27/2023 13:18:16 09/23/1909/27/2023 HEMOG LOBIN OPATH Y EVALU ATION hemoglobin A2 (quant) 2.6 % 2.0-3. 2 Not Available [address], [address], 09/27/2023 13:18:16 09/23/1909/27/2023 HEMOG LOBIN OPATH Y EVALU ATION interpretati on Maddie l pheno type. Maddie l hemog lobin distr ibuti on, no HgS, HgC or other abnor mal hemog lobin obser kailee. Not Available [address], [address], 09/27/2023 13:18:16 09/23/19 24 09/27/2023 FILI TIN ferritin 12 NG/mL 16-154 low Not Available [facility] [address] [place], [address], 09/27/2023 13:18:16 09/23/19 24 09/27/2023 CULTU RE, URINE , ROUTI NE culture, urine, routine SEE NOTE CULTU RE, URINE , ROUTI NE Micro Numbe r: [id number] Test Statu s: Final Speci men [...] re Trans port Tube. Not Available [facility] [address] [place], [address], 09/27/2023 13:18:17 11/03/19 24 11/04/2023 STD SCREE BRUCE ([facility] ) hep BS Ag Non-Re active non-re active normal Not Available [facility] [address], [address], 11/04/2023 18:03:53 11/03/19 24 11/04/2023 STD SCREE BRUCE ([facility] ) hep C Ab Non-Re active non-re active normal Not Available [facility] [address] [place], [address], 11/04/2023 18:03:53 11/03/19 24 11/04/2023 STD SCREE BRUCE ([facility] ) HIV 1/2 Ag/Ab Non-Re active non-re active normal Not Available [employer] [address] [place] [address], [address], 11/04/2023 18:03:53 11/03/19 24 11/04/2023 STD SELINA BARRERA ([facility] ) syphilis Ab Non-Re active non-re active normal Not Available [address], [address], 11/04/2023 18:03:53 11/03/19 24 11/05/2023 CULTU RE, URINE , ROUTI NE culture, urine, routine SEE NOTE CULTU RE, URINE , ROUTI NE Micro Numbe r: [id number] Test Statu s: Final Speci men Sourc e: Urine Speci men Quali ty: Adequ ate Resul t: No Growt h Not Available [place] [address] [place], [address], 11/05/2023 03:44:30 11/03/19 24 11/05/2023 VAGIN ITIS PLUS STD PANEL bacterial vaginosis BV neg negati ve normal Not Available [address], [address], 11/05/2023 15:02:46 11/03/19 24 11/05/2023 VAGIN ITIS PLUS STD PANEL austin species C. spp neg negati ve normal Not Available [address], [address], 11/05/2023 15:02:46 11/03/19 24 11/05/2023 VAGIN ITIS PLUS STD PANEL austin glabrata C. gla neg negati ve normal Not Available [address], [address], 11/05/2023 15:02:46 11/03/19 24 11/05/2023 VAGIN ITIS PLUS STD PANEL trichomonas vaginalis CV/TV TRICH neg negati ve normal Not Available [address], [address], 11/05/2023 15:02:46 11/03/19 24 11/05/2023 VAGIN ITIS PLUS STD PANEL chlamydia trachomatis CT neg negati ve normal This repor t is inten ded for us in clini tana monit oring and manag ement of [facility]. It is not inten ded for use in medic al-le gal appli catio n. Not Available [facility] [address] [place], [address], 11/05/2023 15:02:46 11/03/19 24 11/05/2023 VAGIN ITIS PLUS STD PANEL neisseria gonorrhoeae GC neg negati ve normal This repor t is inten ded for us in clini tana monit oring and manag ement of [facility]. It is not inten ded for use in medic al-le gal appli catio n. Not Available [facility] [address] [facility], [place], [address], 11/05/2023 15:02:46 11/03/19 24 11/03/2023 urina lysis , dipst ick Leukocytes Negati ve Not Available [address], [address], 11/03/2023 15:15:56 11/03/19 24 11/03/2023 urina lysis , dipst ick Nitrite negati ve Not Available [address], [address], 11/03/2023 15:15:56 11/03/19 24 11/03/2023 urina lysis , dipst ick Urobilinogen .2 Not Available [address], [address], 11/03/2023 15:15:56 11/03/19 24 11/03/2023 urina lysis , dipst ick Protein Trace Not Available [address], [address], 11/03/2023 15:15:56 11/03/19 24 11/03/2023 urina lysis , dipst ick pH 7.0 Not Available [facility] [address], [place], [address], 11/03/2023 15:15:56 11/03/19 24 11/03/2023 urina lysis , dipst ick Blood Modera te Not Available [facility] [address], [place], [address], 11/03/2023 15:15:56 11/03/19 24 11/03/2023 urina lysis , dipst ick Specific [place] 1.015 Not Available [facility] [place] [address], [place], [address], 11/03/2023 15:15:56 11/03/19 24 11/03/2023 urina lysis , dipst ick Ketone Trace Not Available [address], [place], [address], 11/03/2023 15:15:56 11/03/19 24 11/03/2023 urina lysis , dipst ick Bilirubin Negati ve Not Available [address], [place], [address], 11/03/2023 15:15:56 11/03/19 24 11/03/2023 urina lysis , dipst ick Glucose Negati ve Not Available [place] [address], [place], [address], 11/03/2023 15:15:56 11/03/19 24 11/03/2023 urina lysis , dipst ick Appearance Clear Not Available [place] [address], [place], [address], 11/03/2023 15:15:56 11/03/19 24 11/03/2023 urina lysis , dipst ick Color Pale Yellow Not Available [facility] [address] [place], [address], 11/03/2023 15:15:56 12/23/1912/24/2023 HCG, TOTAL , QUANT [...] er of this assay . Not Available [employer] [address] [place] [address], [address], 12/24/2023 11:22:59 12/23/1912/24/2023 CBC (INCL UDES DIFF/ PLT) WBC 5.5 thous and/u L 4.0 - 9.8 normal Not Available [employer] [address] [place] [address], [address], 12/24/2023 16:24:37 12/23/19 24 12/24/2023 CBC (INCL UDES DIFF/ PLT) RBC 4.4 kimberley on/uL 3.9 - 4.9 normal [place], [address], 12/24/2023 16:24:37 12/23/19 24 12/24/2023 CBC (INCL UDES DIFF/ PLT) hemoglobin 12.1 g/dL 11.8 - 14.8 normal [place], [address], 12/24/2023 16:24:37 12/23/19 24 12/24/2023 CBC (INCL UDES DIFF/ PLT) hematocrit 38.2 % 35.5 - 44.0 normal Not Available [facility], [address], 12/24/2023 16:24:37 12/23/19 24 12/24/2023 CBC (INCL UDES DIFF/ PLT) MCV 87.4 fL 82.0 - 99.0 normal Not Available [address], [address], 12/24/2023 16:24:37 12/23/19 24 12/24/2023 CBC (INCL UDES DIFF/ PLT) MCH 27.7 pg 27.2 - 32.6 normal Not Available [address], [address], 12/24/2023 16:24:37 12/23/19 24 12/24/2023 CBC (INCL UDES DIFF/ PLT) MCHC 31.7 g/dL 31.5 - 35.5 normal Not Available [address], [address], 12/24/2023 16:24:37 12/23/19 24 12/24/2023 CBC (INCL UDES DIFF/ PLT) RDW-CV 13.0 % 11.5 - 14.5 normal Not Available [address], [address], 12/24/2023 16:24:37 12/23/19 24 12/24/2023 CBC (INCL UDES DIFF/ PLT) platelet 280 thous and/u L 140 - 350 normal Not Available [address], [address], 12/24/2023 16:24:37 12/23/19 24 12/24/2023 CBC (INCL UDES DIFF/ PLT) MPV 11.5 fL 9.3 - 12.4 normal Not Available [address], [address], 12/24/2023 16:24:37 12/23/19 24 12/24/2023 CBC (INCL UDES DIFF/ PLT) absolute neutrophil 2.62 thous and/u L 1.90 - 7.00 normal Not Available [address], [address], 12/24/2023 16:24:37 12/23/19 24 12/24/2023 CBC (INCL UDES DIFF/ PLT) absolute lymphocyte 2.12 thous and/u L 0.70 - 4.50 normal Not Available [address], [address], 12/24/2023 16:24:37 12/23/19 24 12/24/2023 CBC (INCL UDES DIFF/ PLT) absolute monocyte 0.46 thous and/u L 0.10 - 1.30 normal Not Available [address], [address], 12/24/2023 16:24:37 12/23/19 24 12/24/2023 CBC (INCL UDES DIFF/ PLT) absolute eosinophil 0.21 thous and/u L <0.70 normal Not Available [address], [address], 12/24/2023 16:24:37 12/23/19 24 12/24/2023 CBC (INCL UDES DIFF/ PLT) absolute basophil 0.03 thous and/u L <0.20 normal Not Available [address], [address], 12/24/2023 16:24:37 12/23/19 24 12/24/2023 CBC (INCL UDES DIFF/ PLT) absolute immature granulocyte 0.02 thous and/u L <0.03 normal Not Available [address], [address], 12/24/2023 16:24:37 12/23/19 24 12/23/2023 pregn love test, urine HCG negati ve Not Available [facility] [address] [facility]3], [place], [address], 12/23/2023 11:39:47 05/16/19 25 05/16/2024 HCG, TOTAL , QUANT HCG, total, quant [id number] mIU/m L <5 high Refer ence Range s are for femal [...] has not been valid ated by the [facility] actur er of this assay . Not Available [address], [address], 05/16/2024 11:52:49 05/18/19 25 05/18/2024 HCG, TOTAL , QUANT HCG, total, quant 97600 mIU/m L <5 high Refer ence Range s are for femal [...] has not been valid ated by the [facility] actur er of this assay . Not Available [address], [address], 05/18/2024 12:16:37 05/30/1905/30/2024 CULTU RE, URINE , ROUTI NE culture, urine, routine SEE NOTE CULTU RE, URINE , ROUTI NE Micro Numbe r: [id number] Test Statu s: Final Speci men Sourc e: Urine Speci men Quali ty: Adequ ate Resul t: No Growt h Not Available [facility] [address] [place], [address], 05/30/2024 22:29:40 05/30/19 25 05/29/2024 urina lysis , dipst ick Leukocytes Negati ve Not Available [facility], [place], [address], 05/29/2024 15:31:59 05/30/19 25 05/29/2024 urina lysis , dipst ick Nitrite negati ve Not Available [address], [place], [address], 05/29/2024 15:31:59 05/30/19 25 05/29/2024 urina lysis , dipst ick Urobilinogen .2 Not Available [address], [place], [address], 05/29/2024 15:31:59 05/30/19 25 05/29/2024 urina lysis , dipst ick Protein Negati ve Not Available [address], [place], [address], 05/29/2024 15:31:59 05/30/19 25 05/29/2024 urina lysis , dipst ick pH 5.0 Not Available [address], [place], [address], 05/29/2024 15:31:59 05/30/19 25 05/29/2024 urina lysis , dipst ick Blood Non-He molyze d: Trace Not Available [address], [place], [address], 05/29/2024 15:31:59 05/30/19 25 05/29/2024 urina lysis , dipst ick Specific [place] 1.030 Not Available [facility] [address] [place] [address] [address], [place], [address], 05/29/2024 15:31:59 05/30/19 25 05/29/2024 urina lysis , dipst ick Ketone Negati ve Not Available [address], [place], [address], 05/29/2024 15:31:59 05/30/19 25 05/29/2024 urina lysis , dipst ick Bilirubin Negati ve Not Available [address], [place], [address], 05/29/2024 15:31:59 05/30/19 25 05/29/2024 urina lysis , dipst ick Glucose Negati ve Not Available [address], [place], [address], 05/29/2024 15:31:59 05/30/19 25 05/29/2024 urina lysis , dipst ick Appearance Clear Not Available [address], [place], [address], 05/29/2024 15:31:59 05/30/19 25 05/29/2024 urina lysis , dipst ick Color Yellow Not Available [address], [place], [address], 05/29/2024 15:31:59 11/05/19 24 11/03/2023 , trans vagin al No observ ation record ed. [email or web address] [address], [place], [address], 11/08/2023 17:34:32 12/23/19 24 12/23/2023 , trans vagin al No observ ation record ed. [email or web address] [address], [place], [address], 12/24/2023 09:52:08 05/17/19 25 05/15/2024 , trans vagin al No observ ation record ed. [email or web address] [address], [place], [address], 05/16/2024 10:30:20 05/30/19 25 05/29/2024 US, obste tric, trans vagin al No observ ation record ed. [email or web address] [address], [place], [address], 06/05/2024 23:37:21 Result Notes None recorded. Problems Name Problem [...] : NO ProblemS tatus: Resolve Not Available [facility] 2 20:44:50 Hypertro phy of clitoris [id number] Completed 202010/15/2020 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 ; Progress : Stable Added By: Charity Villalobos Add to Current Problems : NO ProblemS tatus: Resolve Not Available [facility] 2 20:44:52 Clinical finding Completed 202010/15/2020 state, incident al; Progress : Stable Added By: Bala Grant Add to Current Problems : NO ProblemS tatus: Resolve Not Available [facility] 2 14:41:03 Gestatio n period, 17 weeks [id number] Completed 202008/06/2020 17 weeks gestatio n of pregnanc y; Progress : Stable Added By: Cecilia Anne Add to Current Problems : NO ProblemS tatus: Resolve Not Available [facility] 2 20:44:50 Pregnanc y, childbir th and puerperi um finding Completed 202006/18/2020 Encounte r for supervis ion of normal first pregnanc y, first trimeste r; Progress : Stable Added By: Cecilia Anne Add to Current Problems : NO ProblemS tatus: Resolve Not Available [facility] 2 20:44:51 Syphilis test finding [id number] Completed 202008/06/2020 Encounte r for screenin g for infectio ns with a predomin antly sexual mode of transmis mp; Progress : Stable Added By: Mariely Shaffer Add to Current Problems : NO ProblemS tatus: Resolve Not Available [facility] 2 20:44:[address] Concept Completed 202010/15/2020 Decrease d movement s, third trimeste r, fetus 1; Progress : Stable Added By: Lindy Oropeza Add to Current Problems : NO ProblemS tatus: Resolve Not Available [facility] 2 20:44:49 Gestatio n period, 27 weeks [id number] Completed 202010/15/2020 27 weeks gestatio n of pregnanc y; Progress : Stable Added By: Charity Villalobos Add to Current Problems : NO ProblemS tatus: Resolve Not Available [facility] 2 20:44:48 Gestatio n period, 24 weeks [id number] Completed 202010/15/2020 24 weeks gestatio n of pregnanc y; Progress : Stable Added By: Paige Rogers Add to Current Problems : NO ProblemS tatus: Resolve Not Available [facility] [facility]04 Sampling of vagina for Papanico laou smear Completed 202006/18/2020 Encounte r for gynecolo gical examinat ion (general ) (routine ) without abnormal findings ; Progress : Stable Added By: Cecilia Anne Add to Current Problems : NO ProblemS tatus: Resolve Not Available [facility] 2 20:44:51 Disorder of upper respirat ory system 047023771 Completed 202010/15/2020 Acute upper respirat ory infectio n, unspecif ied; Progress : Stable Added By: Bala Grant Add to Current Problems : NO ProblemS tatus: Resolve Not Available [facility] 2 14:41:03 Gestatio n period, 28 weeks 70732641 Completed 202010/15/2020 28 weeks gestatio n of pregnanc y; Progress : Stable Added By: Leona Tavares Add to Current Problems : NO ProblemS tatus: Resolve Not Available [facility] 2 20:44:52 Gestatio n period, 20 weeks 87492734 Completed 202008/06/2020 20 weeks gestatio n of pregnanc y; Progress : Stable Added By: Griselda Daly Add to Current Problems : NO ProblemS tatus: Resolve Not Available [facility] 2 20:44:49 Gestatio n period, 8 weeks 88522184 Completed 202006/18/2020 8 weeks gestatio n of pregnanc y; Progress : Stable Added By: Cecilia Anne Add to Current Problems : NO ProblemS tatus: Resolve Not Available [facility] 2 20:44:48 Gestatio n period, 32 weeks 1898434 Completed 202010/15/2020 32 weeks gestatio n of pregnanc y; Progress : Stable Added By: Mattie Plasencia Add to Current Problems : NO ProblemS tatus: Resolve Not Available [facility] 2 20:44:[address] Concept Completed 202010/15/2020 Decrease d movement s, third trimeste r, not applicab le or unspecif ied; Progress : Stable Added By: Eduardo Rios Add to Current Problems : NO ProblemS tatus: Resolve Not Available [facility] 2 20:44:47 Gestatio n period, 30 weeks 81632189 Completed 202010/15/2020 30 weeks gestatio n of pregnanc y; Progress : Stable Added By: Leona Tavares Add to Current Problems : NO ProblemS tatus: Resolve Not Available [facility] 2 20:44:48 Antenata l screenin g for malforma tion Completed 202008/06/2020 Encounte r for antenata l screenin g for malforma tions; Progress : Stable Added By: Griselda Daly Add to Current Problems : NO ProblemS tatus: Resolve Not Available [facility] 2 20:44:47 Screenin g for malignan t neoplasm of cervix Completed 202006/18/2020 Encounte r for screenin g for malignan t neoplasm of cervix; Progress : Stable Added By: Cecilia Anne Add to Current Problems : NO ProblemS tatus: Resolve Not Available [facility] 2 20:44:50 Fatigue 10407903 Completed Shayy Tyron [place], [place] [facility] 3 15:18:55 Hemorrho ids 72132237 Completed Shayy Tyron [place] [facility] 3 15:18:55 Headache 17408410 Completed Shayy Tyron null[place] [facility] 3 15:18:55 heart disorder 569526076 Completed Shayy Tyron [place] [facility] 3 15:18:55 Uncertai n viabilit y of pregnanc y 291693197 Active 2024 Griselda Daly MD [facility] [place], [address] , [place] [facility] 5 13:05:36 Problem Notes None recorded. Procedures Surgical History Date Name Laterality Status Provider Name and Address Organization Details Recorded Time 09/23/2022 Date of Last Pap Smear completed MARY LOU QUINN-RUY [address] [place], [address], [facility] 09/23/2022 15:42:25 Imaging Results Imaging Date Name Status LastModified by Organization Details LastModified Time 11/03/2023 US, transvaginal completed [email or web address] [address], [place], [address], 11/08/2023 17:34:32 12/23/2023 US, transvaginal completed [email or web address] [address], [place], [address], 12/24/2023 09:52:08 05/15/2024 US, transvaginal completed [email or web address] [address], [place], [address], 05/16/2024 10:30:20 05/29/2024 US, obstetric, transvaginal completed [email or web address] [address], [place], [address], 06/05/2024 23:37:21 Procedure Notes None recorded. Medical Equipment None Reported. Allergies No known drug allergies Medications Name Sig Start Date Stop Date Status Note LastModified by Organization Details LastModified Time cyclobenz aprine 10 mg tablet TAKE 1 TABLET BY MOUTH EVERY 8 HOURS 05/15 completed Not Available Not Available Not Available amoxicill in 500 mg capsule 01/06 completed Not Available Not Available Not Available terconazo le 0.4 % vaginal cream INSERT 1 APPLICAT ORFUL VAGINALL Y AT BEDTIME FOR 7 DAYS active Not Available Not Available No t Available acetamino phen 325 mg tablet 02/23 completed Not Available Not Available Not Available Vitamin B-6 25 mg tablet TAKE 1 TABLET BY MOUTH THREE TIMES A DAY active Not Available Not Available No t Available nicotine 14 mg/24 hr daily transderm al patch APPLY 1 PATCH TO SKIN ONCE DAILY active Not Available Not Available No t Available Saline Mist 0.65 % nasal spray [...] MOUTH EVERY 3 DAYS FOR 2 DOSES 05/15 completed Not Available Not Available Not Available valacyclo vir 1 gram tablet take 1 tablet (1,000 mg) by oral route 2 times per day 08/06 completed valACYcl ovir 1 gram oral tablet RxNorm: 489821 Allow Substitu tion: True Refill Denied: No Edited by: jaimie miranda(Paige Gallardo ) on 08/07/19 Stopped by: jaimie miranda(Paige Gallardo ) on 08/07/19 21 Not Available Not Available Not Available sumatript an 100 mg tablet TAKE 1 TABLET BY MOUTH EVERY DAY FOR 30 DAYS 01/25 completed Not Available Not Available Not Available fluconazo le 200 mg tablet TAKE 1 TABLET BY MOUTH TODAY. THEN, TAKE THE 2ND TAB AFTER COMPLETI NG ENTIRE COURSE OF ANTIBIOT ICS. 05/15 completed Not Available Not Available Not Available [...] TAKE 1 TABLET BY MOUTH 2 TIMES A DAY. AVOID ALCOHOL DURING AND 3 DAYS AFTER TREATMEN T. 05/29 completed Not Available Not Available Not Available valacyclo vir 500 mg tablet TAKE [...] BYMOUTH EVERY 12 HOURS FOR 5 DAYS. 05/15 completed Not Available Not Available Not Available dicyclomi ne 20 mg tablet TAKE 1 TABLET BY MOUTH THREE TIMES A DAY NEEDED 09/22 completed Not Available Not Available Not Available phenazopy ridine 100 mg tablet 09/22 completed Not Available Not Available Not Available benzonata te 100 mg capsule take 1 capsule (100 mg) by oral route 3 times per day 09/02 completed benzonat ate 100 mg oral capsule RxNorm: 113062 Allow Substitu tion: True Refill Denied: No [...] ondansetr on 4 mg disintegr ating tablet PLACE 1 TABLET ON TONGUE AND LET DISSOLVE EVERY 6 HOURS NEEDED, FOR NAUSEA. active Not Available Not Available No t Available cefdinir 300 mg capsule TAKE 1 CAPSULE BY MOUTH EVERY 12 HOURS 09/22 completed Not Available Not Available Not Available fluticaso ne propionat e 50 mcg/actua tion nasal spray,markos pension INSTILL 1 SPRAY IN EACH NOSTRIL EVERY NIGHT BEFORE BED 05/29 completed Not Available Not Available Not Available Unisom (doxylami ne) 25 mg tablet Take 0.5 tablets every day by oral route at bedtime for 30 days. 2024 active Not Available Not Available Not Avai lable doxycycli ne hyclate 100 mg tablet TAKE 1 TABLET BY MOUTH TWICE A DAY 01/06 completed Not Available Not Available Not Available fluticaso ne propionat e 110 mcg/actua tion HFA aerosol inhaler INHALE 1 PUFF BY MOUTH TWICE A DAY DIRECTED FOR PREVENTI ON OF ASTHMA ATTACKS 12/22 completed Not Available Not Available Not Available naproxen 500 mg tablet TAKE 1 TABLET ORAL ROUTE EVERY 12 HOURS NEEDED NEEDED FOR PAIN 05/15 completed Not Available Not Available Not Available metoclopr amide 10 mg tablet TAKE 1 TABLET BY MOUTH FOUR TIMES A DAY 01/25 completed Not Available Not Available Not Available amoxicill in 875 mg-potass ium clavulana te 125 mg tablet TAKE 1 TABLET BY MOUTH TWICE A DAY FOR 7 DAYS 05/15 completed Not Available Not Available Not Available azithromy alesia 500 mg tablet TAKE 2 TABLETS BY MOUTH ONCE active Not Available Not Available No t [...] Not Available 28 mg iron-800 mcg tablet Take 1 tablet every day by oral route for 90 days. 2024 active Not Available Not Available Not Avai lable ID NOW COVID-19 Test Kit TEST DIRECTED [...] Updated DateTime 4 162.56 cm 25.1 kg/m2 15704.4 9 g 97.6 [degF] 106 mm[Hg] 58 mm[Hg] Jose Cunha [facility] 4 15:02:17 Date Recorded Body height Body mass index (BMI) Body weight Body temperature Systolic blood pressure Diastolic blood pressure Provider Name and Address Organization Details Last Updated DateTime 4 162.56 cm 24.9 kg/m2 95269.1 8 g 97.4 [degF] 110 mm[Hg] 68 mm[Hg] Enedina Harrison [facility] 4 15:25:13 Date Recorded Body height Body mass index (BMI) Body weight Systolic blood pressure Diastolic blood pressure Provider Name and Address Organization Details Last Updated DateTime 12/23/2023 162.56 cm 21.3 kg/m2 48432.4 5 g 96 mm[Hg] 42 mm[Hg] Kelley Bennett [facility] 4 11:37:17 Date Recorded Body height Body mass index (BMI) Body weight Systolic blood pressure Diastolic blood pressure Provider Name and Address Organization Details Last Updated DateTime 05/15/2024 162.56 cm 23.5 kg/m2 88188.15 g 120 mm[Hg] 84 mm[Hg] Vandana Beatty [facility] 5 16:17:25 Date Recorded Body height Body mass index (BMI) Body weight Systolic blood pressure Diastolic blood pressure Provider Name and Address Organization Details Last Updated DateTime 05/29/2024 162.56 cm 23 kg/m2 19597.38 g 102 mm[Hg] 62 mm[Hg] Karla Beltran [facility] 5 15:11:18 Social History Question Answer Notes LastModified by Organizat ion Details LastModified Time Tobacco Smoking Status Current Every Day Smoker Maria Guadalupe echols, [facility] 01/07/2021 15:20:09 If You Are , What Was Your Level Of Alcohol Consumption Prior To ? None Information not available 05/07/2022 Are You Blind Or Do You Have Difficulty Seeing? No Information not available 11/19/2021 Are You Deaf Or Do You Have Serious Difficulty Hearing? No Information not available 11/19/2021 What Type Of Diet Are You Following? REGULAR Information not available 05/07/2022 Which Illicit Or Recreational Drugs Have You Used? Marijuana, Prior Stopped A Couple Of Yrs Ago [email or web address] Information not available 05/29/2024 What Is The Highest Grade Or Level Of School You Have Completed Or The Highest Degree You Have Received? [id number] [email or web address] Information not available 02/23/2023 How Many Children Do You Have? 2 Information not available 09/23/2022 What Is Your Relationship Status? Single Information not available 01/07/2021 Are You Sexually Active? Yes Information not available 01/07/2021 At What Age Did You Start Smoking Tobacco? 17 [email or web address] Information not available 05/29/2024 How Much Tobacco Do You Smoke? 1 PPW Information not available 01/07/2021 How Many Years Have You Smoked Tobacco? 6 Information not available 05/29/2024 Have You Used IV Drugs? No Information not available 04/30/2022 Sex: Female Functional Status Question Answer Note LastModified by Organizat ion Details LastModified Time Do you use any illicit or recreational drugs? No [email or web address] Information not available 05/29/2024 Do you or have you ever used any other forms of tobacco or nicotine? No Information not available 04/30/2022 What is your level of alcohol consumption? None Information not available 01/07/2021 Are you currently employed? No [email or web address] Information not available 02/23/2023 What is your exercise level? None Information [...] Cervical Cancer N Hematuria N Chlamydia N Varicosities N Stroke N Seasonal allergies N Crohn's Disease N Alzheimer's/Dementia N COPD/Emphysema Y Endometriosis N HPV/Genital Warts N IBS (Irritable Bowel Syndrome) N History of Abnormal Pap N High Cholesterol N Liver Disease N Fibromyalgia N Kidney Infection N Ulcer N Kidney Disease N HIV N Gallbladder disease N Sickle Cell Disease/Trait N Von Willebrand disease N ADD/ADHD N Eating Disorder N Anemia N Diabetes Mellitus (non-insulin dependent ) N Ovarian Problems N Multiple Sclerosis N Gonorrhea N Frequent Urinary Tract infections N Osteopenia N Headaches/migraines N GERD (reflux) N Ovarian Cancer N Diabetes (insulin dependent) N Seizures/Epilepsy N Fibroids N Heart Attack N Asthma Y Lupus N Endometrial Cancer N Rubella N Blood Clotting Disorder N Bipolar Disorder N Diabetes Mellitus (during ) N Ulcerative Colitis N Hepatitis N Heart Disease N Pulmonary Embolism N RPR N Chicken Pox N Osteoporosis N Gynecological History Statement/Question Response Date of Last Colonoscopy Date of LMP 04/09/2024 Most Recent Bone Density Date of Last Pap Smear 09/23/2022 Duration of Flow (days) 7 Most Recent Mammogram Current Control Method Age at Menarche 12 Obstetrics History GPAL:G 2 P 2 0 0 2 Type Value Full Term 2 Living 2 Total 2 Past Encounters Encounter ID Performer Location Encounter Start Date Encounter Closed Date Diagnosis/Indication Diagnosis SNOMED-CT Code Diagnosis ICD10 Code Diagnosis Note [id number] Meena elias, TEVIN [facility] [address] [place] [address] 01/07/2021 15:10:04 01/07/2021 15:35:31 state 97603736 Z39.[address], formula feeding Acute vaginitis 47486210 N76.0 Reviewed vulvar care guidelines and safe sex practices [id number] Meena elias CNM [facility] [address] [place] [address] 11/19/2021 11:29:11 11/19/2021 15:59:41 Missed period 06786098 N92.5 LMP 09/23/21US 11/19 [id number] interval preg last baby 11/22/20 uncomplica dima Nausea 031657905 R11.0 [id number] Nirali Sellers MD [facility] [address] [place] [address] 01/06/2022 15:30:40 01/06/2022 22:13:42 Routine care 625440523 Z34.01 Z34.81 O09.511 O09.521 new ob labs drawn today. Discussed NIPT. anatomy scan next screening 2437 64899 Z36.0 Carrier de tection, molecular genetics 7831531 Z14.8 [id number] [facility] [address] [place] [address] 02/12/2022 12:08:07 02/18/2022 14:58:39 [id number] [facility] [address] [place] [address] 03/18/2022 10:15:56 03/18/2022 11:26:29 Gestation period, 25 weeks 71461921 Z3A.25 Routine an tenatal care 651891565 Z34.92 Screening for disorder 899505187 Z11.3 N89.9 Headache 31939291 R51.9 External hemorrhoids 239 45882 K62.5 Malaise and fatigue 2717 38460 R53.83 [id number] LURDES ANNADO [address] [address] 04/08/2022 14:33:00 04/08/2022 16:18:12 Routine care 041245700 Z34.03 Z34.83 O09.513 O09.523 Gestation period, 28 weeks 44994889 Z3A.28 Increased nausea and vomiting 06341562 R11.2 Low back p ain in 2785627136 106 O26.828 [id number] Hamida Morales CNM [address] [address] 04/23/2022 13:11:59 04/23/2022 22:21:22 Normal in multigravida 6326526594 51344 Z34.83 Gestation period, 30 weeks 23311106 Z3A.30 labor precaution s given. FM counts discussed. F/u in L&D if experienci ng decreased movement, leaking fluid, 4 or more contractio ns in 1 hour not relieved by rest and fluids, or regular uterine contractio ns increasing in frequency and/or intensity. Reduced fe jani movement 030644205 O36.8199 Modified BPP - NST w/PADMINI [id number] Hamida Morales CNM [address] [address] 04/30/2022 17:19:10 05/01/2022 14:25:25 Supervision of high risk for multigravida done 9931598111 9109 O09.93 Vaginal irritation 67364 6004 N89.8 Gestation period, 31 weeks 62812027 Z3A.31 labor precaution s given. FM counts discussed. F/u in L&D if experienci ng decreased movement, leaking fluid, 4 or more contractio ns in 1 hour not relieved by rest and fluids, or regular uterine contractio ns increasing in frequency and/or intensity. [id number] HUA BLOOM MD [address] [address] 05/07/2022 15:09:36 05/08/2022 14:04:28 Gestation period, 32 weeks 8929324 Z3A.32 High risk 4720 0007 O09.73 Abnormalit y of heart 196145604 O36.8999 [id number] Nirali Sellers MD [address] [address] 05/12/2022 11:02:08 05/12/2022 19:35:16 Normal in multigravida 1550095184 03558 Z34.83 discussed delivery plans. She has appt tomorrow with peds cardiology - most likely will deliver at [place] due to avail of more advanced services for baby Gestation period, 32 weeks 1109614 Z3A.[id number] [address] 09/23/2022 14:28:49 09/24/2022 12:59:52 Gynecologic examination 07493374 Z01.419 Screening for malignant neoplasm of cervix 496776746 Z12.4 Contracept ion education 642159697 Z30.09 Contracept lee counseling : Discussed options including OCPs, NuvaRing, Nexplanon, hormonal and copper IUDs. Discussed risks, efficacy, noncontrac eptive benefits, and side effects of each option, including risk of VTE with hormonal contracept ion and uterine perforatio n, expulsion, infection with IUD. Recieved first shot of Depo in August. Pt has had brown discharge since then. Edcuation given. Increased frequency of urination 391962520 R35.0 Constipation 87870880 K5 9.00 Pt reports pelvic pain with constipati on. Education given. [id number] SHELDON QUINN [address] [address] 01/25/2023 15:40:40 01/26/2023 10:37:11 Abnormal uterine bleeding 6585251577 9100 N93.9 Pt was on depo and just got off of it. would like to restart. management 278 901835 Z39.1 Dysuria 17980800 R30.0 Initiation of depot contraception done 1068300532 19900 Z30.013 Pt comes in for Initiation of [...] Depo injections . Contracept ion care education 515107753 Z30.09 Contracept lee counseling : Discussed options including OCPs, NuvaRing, Nexplanon, hormonal and copper IUDs. Discussed risks, efficacy, noncontrac eptive benefits, and side effects of each option, including risk of VTE with hormonal contracept ion and uterine perforatio n, expulsion, infection with IUD. [id number] SAPNA RODAS [facility] [address] [place] [address] 02/23/2023 14:08:03 02/24/2023 11:22:13 Vaginal discharge 188990580 N89.8 N76.0 Pt educated on exam findings, and discussed POC. Vaginal cx collected and sent. Rx for Flagyl and Diflucan sent. Pt advised to avoid fragrant soaps/laun dry detergents , use of baking soda soaks, having partner change soaps, etc. Further POC pending lab result review. Abnormal u terine bleeding 6619856519 9100 N93.9 Pt comes in with AUB. [...] US was normal. Contracept ion: None POCSure SwabTS Approximat jada forty five minutes spent with patient in consultati on (>50% face-to-fa ce). Patient labs and notes were reviewed. Patient questions were answered. Additional patient care was coordinate d. Discharge from nipple 54 051405 N64.52 -Discussed with patient hormones, or sexual [...] prolactin in your blood. POC:Prolac tin level [id number] SHELDON QUINN [facility] [address] [place] [address] 03/16/2023 13:59:55 03/17/2023 13:24:56 Menorrhagia 899682278 N92.0 [id number] DARNELL TRAMMELL NP [address] [place] [address] 09/23/2023 14:41:38 09/23/2023 17:14:01 Increased frequency of urination 303959835 R35.0 Patient reports frequency and bleeding. Patient unsure if bleeding is from the vagina or urethra as she is have irritation at meatus. Menorrhagia 480920132 N9 2.0 Patient electing to self collect. Given instructio ns by CERTIFIED FIRE INVESTIGATOR to insert past nursing home anamika and rotate for 30s. Patient denies questions and verbalizes understand ing. Wishes to proceed with self collection . Vulvar care guidelines and safe sex practices reviewed. TX pending results. Anemia 496613900 D64.9 [id number] DARNELL TRAMMELL NP [address] [address] 11/03/2023 14:38:48 11/05/2023 13:41:16 Menorrhagia 643104780 N92.0 Discussed causes of abnormal uterine bleeding, [...] hours before Menses. Disorder o f menstruation 076298247 N92.6 Urinary symptoms 8074902 08 R39.9 Patient with reported frequent UTI. Patient with discomfort today.POCD ipstick and culture Venereal d isease screening 969885800 Z11.3 Discussed the various types of STDs, related symptoms and the potential consequenc es (including effects on fertility) of STD infections . Reviewed ways to limit exposure and prevention techniques . Recurrent urinary tract infection 803522729 N39.0 Family his tory of malignant neoplasm of genital structure 824577351 Z80.49 discussed MYRisk and talking with mother that has a history of unknown type of reporducti ve cancer. [id number] SAPNA RODAS [facility] [address] [place] [address] 12/23/2023 11:09:13 12/23/2023 14:19:37 test positive 767864900 Z32.01 Miscarriage 80891548 O03 .9 --TVUS today: homogeneou s uterus [...] were answered. Additional patient care was coordinate joceline [id number] SAPNA RODAS [address] [place] [address] 05/15/2024 15:41:09 05/16/2024 15:06:31 Menstrual period late 50577097 N92.6 6888 [facility] states gestationa l sac, no YS seen. Can not rule out ectopic. No masses seen in adnexa bilateral or free fluid.I have reviewed today's transvagin al US and discussed with patient. TVUS shows: Gestationa l and yolk sacs seen- no pole or heart tones. Too early for GORDON. Right adnexa WNL. Left ovary WNL- contains corpus luteum. No FF seen.Will plan for HCG level today and repeat on Wednesday. Will RTC in 12 days for viability check.All questions answered to the fullest extent concerning current health conditions . [id number] DARNELL TRAMMELL NP [facility] [address] [place] [address] 05/29/2024 14:34:03 05/29/2024 17:36:11 Uncertain viability of 224519306 O36.80X0 Pt presents today for a confirmati on of visit. has not been previously confirmed at another healthcare facility. Pt voiced that she is happy about this . TVUS today showed:IUP with Cardiac Activity. GORDON consistent with LMP. GORDON: 5Gestation al Age: 7w 1dFHT:151 First trimester teaching provided.- --Foods and activities to avoid---We ight gain recommenda tions based on BMI---Safe meds---Narciso entation to practice-- -Delivery locations- --SHERICE visit progressio n---Prenat al vitamins daily---To xoplasmosi s precaution s reviewed-- -[facility] Guide; What to expect on your maternity journey -- -S/S of SAB reviewed and when to seek care RTC for 1st OB, Labs, and Physical. --BMI:23 Increased frequency of urination 901163739 R35.0 Patient reports frequency and bleeding. Patient unsure if bleeding is from the vagina or urethra as she is have irritation at meatus. Nausea and vomiting in 7239452465 O21.9 - Reviewed diet changes to reduce acid (decrease tomatoes, chocolate, citrus juice, spicy foods), sleeping with torso elevated -Recommend ation of B6 and unisom-Pat ient to contact the clinic if she requires reglan or zofran (after 12 wks) Substance abuse counseling 195610249 Z71.6 Health Concerns Section Related Observation LastModified by Organization Detai ls LastModified Time None Recorded Concern Status LastModified by Organization Details LastModified Time None Recorded Advance Directives Directive None Recorded Payers Insurance Date Sequence Insurance Name Policy Number Policy Cantu Covered Member ID Cantu Member ID Guarantor Name 05/15/2024 1 [place] Davida Juan [id number] Davida Juan 05/15/2024 1 [employer] [place] - DOS ON OR AFTER 2020 (MEDICAID REPLACEMENT - HMO) Davida Juan [id number] Davida Juan Notes Date Note Type Note Provider Name and Address Organization Details Recorded Time 09/23/2023 text/html Lower Urinary Tract Symptoms (LUTS)Reported bypatient.Quality: dull; stabbing Onset/Timing:< 1 week Davida presents today [...] in the shower. DARNELL TRAMMELL NP [address] [place], [address], [facility] 09/23/2023 16:16:47 11/03/2023 text/html Davida in offi ce for follow up visit and USUS done today in office pt c/o of painful urination and urinary frequency pt would like std testing DARNELL TRAMMELL NP [address] [facility], [place], [address], [facility] 11/04/2023 10:57:05 12/23/2023 text/html Patient [...] much yesterday and today. SAPNA RODAS [address] [place], [address], [facility] 12/23/2023 13:58:49 05/15/2024 text/html Patient presents for follow up from ER. Patient states got a positive test to have an elective termination. After having US completed patient changed her mind and went to [facility] for evaluation. That was on Wednesday. Patient had HCG level measured and it was 6888. ER did an US and report was reviewed on patient's phone. US report stated that she had a GS, YS and pole were not visualized. Bilateral adnexa were WNL and no FF was seen. Patient states that ER doctor told her she needed to follow up to r/o ectopic . Patient denies any pain or bleeding and has questions about her health conditions and . Patient has hx of COPD, Asthma and states she is suppose to get worked up for POTS. SAPNA RODAS [address] [place], [address], [facility] Verold IV 05/16/2024 10:25:54 05/29/2024 text/html Davida present s for viability check today. Patient had US on 05-15-2024 that could not confirm viable at that time. Patient denies any cramping or bleeding. Reports issues with nausea/vomiting. Pt.has not been taking PNV. Pt. has concerns. DARNELL TRAMMELL NP [address] [facility], [place], [address], [facility] Verold IV 05/29/2024 17:28:24 OBGyn Episode Ob Episode Information Episode Created Date Number of Fetuses Patient Bloodtype Patient rh Status Prepregnancy Weight lbs Domestic Partner Domestic Partner Phone Father Name Materials And Processes Manager Status 01/07/20 22 1 O Positive CLOSED Fetus Data First Name Last Name Admitted to NICU Weight (g) Sex Living Outcome Pediatric Complications Fetus ID Race Codes Race Delivery Type [id number] Problems Problem Notes large foramen ovale an eurysm on US arrhythmia - Ped cardiology referral Problem Name Start Date End Date Resolution Snomed Code Not e heart disorder 992071420 Headache [id number] Fatigue [id number] Hemorrhoids [id number] Gordon Calculation Initial Gordon Date Initial Exam [...] Weight in lbs Pre/Post Dialysis Refused Weight 149.689008536108 BP Diastolic BP Location Tested BP Systolic BP Type 62 134 Fetus Heart Rate Present A 150 Present Fetus Movement Comments 15 wks. Desires to have gene tic test done - will draw Bud panel. Also needs to do new OB labs - drawn today. Anatomy scan next Flowsheet Date 02/12/2022 Brooks Score Blood Edema Fundus Height Fundus Units Glucose Ketones Leukocytes Nitrite Labor Signs Protein Cervic Dilation Cervic Effacement Cervic Station none trace Type Weight in lbs Pre/Post Dialysis Refused Weight 158.950886476490 BP Diastolic BP Location Tested BP Systolic BP Type 66 110 Fetus Heart Rate Present Fetus Movement Comments Flowsheet Date 03/18/2022 Brooks Score Blood Edema Fundus Height Fundus Units Glucose Ketones Leukocytes Nitrite Labor Signs Protein Cervic Dilation Cervic Effacement Cervic Station 25 cm none neg Type Weight in lbs Pre/Post Dialysis Refused Weight 165.257699388704 BP Diastolic BP Location Tested BP Systolic BP Type 52 106 Fetus Heart Rate Present A 154 Fetus Movement A Yes Comments Physical Trainer in for visit today. Julio hurley complains [...] in lbs Pre/Post Dialysis Refused With clothes 169.712911060095 BP Diastolic BP Location Tested BP Systolic [...] in lbs Pre/Post Dialysis Refused With clothes 174.76008962056 BP Diastolic BP Location Tested BP Systolic BP Type 58 L arm 102 sitting Fetus Heart Rate Present A 155 Fetus Movement A Decreased Comments Only feels FM twice daily - NST reactive; PADMINI 14; persistent cardiac arrhythmia & Atriums mildly enlarged. EFW 98% 2107g. M consult sent. Flowsheet Date 04/30/2022 Brooks Score Blood Edema Fundus Height Fundus Units Glucose Ketones Leukocytes Nitrite Labor Signs Protein Cervic Dilation Cervic Effacement Cervic Station none none Type Weight in lbs Pre/Post Dialysis Refused With clothes 174.02051635867 BP Diastolic BP Location Tested BP Systolic BP Type 52 108 Fetus Heart Rate Present A 146 Fetus Movement A Yes Comments Pt was referred to [facility] for c ardiac arrhythmia. Dr. Chary Peoples from [facility] spoke w/Dr Daly a few days ago regarding ultrasound findings. Davida's baby has a large foramen ovale aneurysm which can be a variant of normal, however this aneurysm is larger than normal and can cause irregular heart beat as noted w/US on 04/23. With [facility], the heart rhythm was normal for them. This patient needs two things.1. Need to decide where this patient is going to delivery. She told them at [facility] she was considering [facility] or [facility].2. Refer her to Pediatric Cardiology at the place of her planned delivery.However, Davida noted at her visit that they told her baby's heart was normal. There is no report from [facility] available at the time of this visit. Additionally, Ander was seen at [facility] by cardiology and has to wear halter monitor for 2 weeks (?). I asked Davida to sign a records request so we can get cardiology report since her PCP sent the referral. She has a rifle case repairer with her from [place] d/t her social situation. I am under the impression that Davida is not clearly understanding the current situation. I have asked her to make sure she brings any concerns to our attention immediately. Additionally, I encouraged her to make follow up appointments with MD to further discuss appropriate f/u and care delivery.Note sent to obtain [facility] consult notes. Flowsheet Date 05/07/2022 Brooks Score Blood Edema Fundus Height Fundus Units Glucose Ketones Leukocytes Nitrite Labor Signs Protein Cervic Dilation Cervic Effacement Cervic Station 32 wks none Type Weight in lbs Pre/Post Dialysis Refused With clothes 177.837010485710 BP Diastolic BP Location Tested BP Systolic [...] Weight in lbs Pre/Post Dialysis Refused Weight 174.37090900052 BP Diastolic BP Location Tested BP Systolic [...] Domestic Partner Domestic Partner Phone Father Name Materials And Processes Manager Status 02/23/19 24 1 CLOSED Fetus Data First Name Last Name Admitted to NICU Weight (g) Sex Living Outcome Pediatric Complications Fetus ID Race Codes Race Delivery Type F [id number] Gordon Calculation Initial Gordon Date Initial Exam [...] Domestic Partner Domestic Partner Phone Father Name Materials And Processes Manager Status 02/23/19 24 1 CLOSED Fetus Data First Name Last Name Admitted to NICU Weight (g) Sex Living Outcome Pediatric Complications Fetus ID Race Codes Race Delivery Type F Full Term [id number] Gordon Calculation Initial Gordon Date Initial Exam [...]
[2024-06-20 18:57] VITALS: BP 136/74; PULSE 114; RESP 18; TEMP 36.1; O2SAT 99
[2024-06-20 19:53] LABS: Basophils Percent Auto 0.3 % (0.2-1.2); Eosinophils Absolute Auto 0.2 K/mm3 (0-0.3); Eosinophils Percent Auto 2.3 % (0-4.4); Hematocrit 33.6 % (37.0-47.0); Immature Granulocyte Absolute 0.04 K/mm3 (0.00-0.031); Immature Granulocyte Percent A 0.4 % (0-0.5); Lymphocytes Absolute Auto 2.37 K/mm3 (0.9-3.2); Lymphocytes Percent Auto 25.2 % (18.3-44.2); Mean Corpuscular HGB Conc 32.7 g/dl (32-36); Mean Corpuscular Volume 85.5 fl (80-100); Mean Platelet Volume 10.7 fl (7.4-10.4); Monocytes Absolute Auto 0.5 K/mm3 (0.1-0.6); Monocytes Percent Auto 5.4 % (2.6-8.5); Neutrophils Absolute Auto 6.2 K/mm3 (1.3-6.7); Neutrophils Percent Auto 66.4 % (45.5-73.1); Platelet Count Result 243 k/mm3 (150-375); Red Blood Count 3.93 M/mm3 (4.2-5.4); White Blood Count 9.4 K/mm3 (4.5-10.0)
--- NOTE | 2024-06-20 19:54 | PC.NURSE ---
lab called to add on beta hcg.
[2024-06-20 20:03] LABS: Alanine Aminotransferase 12 U/L (6-35); Albumin Level 4.2 g/dL (3.5-5.1); Alkaline Phosphatase 54 U/L (38-126); Anion Gap 9 mmol/L (4-12); Aspartate Amino Transferase 23 U/L (14-36); Bilirubin,Total 0.2 mg/dL (0.2-1.3); Blood Urea Nitrogen 7 mg/dL (7-17); Calcium 8.6 mg/dL (8.4-10.2); Carbon Dioxide 22 mmol/L (22-30); Chloride 105 mmol/L (98-107); Estimated CRCL calculation 133 ml/min; Estimated Glomerular Filt Rate > 60; Glucose 87 mg/dL (65-110); Lipase 29 U/L (23-300); Potassium 3.7 mmol/L (3.4-5.0); Sodium 136 mmol/L (137-145)
--- OUTSIDE RECORDS SUMMARY | 2024-06-20 20:11 | XMS_ITS | Referral Summary ---
Author Organization [facility] Address [address] [place] [id number] Care Team Providers Care Marketing Communications Manager Name Role Phone Zak Arauz MD [...] # Disposition: Follow up task sent to [facility] scheduling pool. Desires discharge home [...] OB office. She was scanned by [facility] (care everywhere) which did not [...] risk , antepa rtum 05/12/2022 Overview (06/23/2022): [facility] RN: Mariah Rodriguez - [phone] [x] Full [facility] Care; [x] Blue Team Referring Provider: [facility] - Hamida Morales [x] Dating [...] Valentin [x] Method of feeding: breast [x] Nozzle Operator: [x] PP Depression Discussed: plan reviewed [...] often do you attend chur ch or episcopal services? More than 4 times per year 06/30/2022 Do you belong to any clubs o r organizations such as religious groups, unions, fraternal or athletic groups, or [...] place to sleep or slept in a senior living (including now)? No 06/30/2022 [place] Depression Scale Answer Date Recorded [place] Depression Scale Total 3 09/03/2022 The thought [...] on file Legal Sex Female 2:54 PM BOILER FIREMAN Gender Identity Not on file Sexual Orientation [...] GONORRHOEAE/C. TRACHOMATIS AMPLIFICATION STAT 02/05/2023 10:21 AM BOILER FIREMAN from Last 3 Months or Most Recently Relevant to Health Maintenance Results * N. gonorrhoeae/C. trachomatis Amplification Urine (02/05/2023 10:21 AM BOILER FIREMAN) C. trachomatis Not Detected Not Detected DEBBIE ARREOLA Comment:Testing performed by : [facility], [address] [place] [address]., [address] N. gonorrhoeae Not Detected Not Detected DEBBIE ARREOLA Comment: Interpretive Data This assay detects Chlamydia trachomatis and Neisseria gonorrhoeae by nucleic acid amplification testing (NAAT). This assay has been cleared by the [place] Food and Drug administration. The performance characteristics of this test have been verified by the [facility]. The performance characteristics of this test have not been evaluated in individuals less than 14 years of age. Current Interpretive Data last revised 2022. Testing performed by: [facility], [address] [address], [place]., [address] Urine (None) 02/05/2023 10:2 1 AM BOILER FIREMAN 02/05/2023 10:30 AM BOILER FIREMAN us Ana Paula [facility] MICROBIOLOGY - GENERAL ORDER RANDY Final Result CERNER [address] [place] [address] from Last 3 Months or Most Recently Relevant to Health Maintenance Insurance [employer] [facility]TER [facility] Member Subscriber Plan / Payer (Ef fective 2020-Present) Name:Davida Juan Relation to Subscriber:Self Name:Davida Juan Payer ID:[id number] (NAIC) Group ID:Not on file Type:MEDICAID RISK OTHER Address: [facility] [id number] [place] [id number] [employer] [facility] [facility] [employer] [facility] Advance Directives For more information, please contact: [phone] * Full Code (Latest Code Status on File) Date Activated Date Inactivated Comments 06/30/2022 12:39 AM 07/01/2022 8:58 PM * Full Code Date Activated Date Inactivated Comments 06/28/2022 9:29 PM 06/30/2022 12:39 AM Full CPR in case of cardiopulmonary arrest Care Teams Marketing Communications Manager Relationship Specialty [place] [address] [place] [address] PCP - General Internal Medicine 03/16/22
--- OUTSIDE RECORDS SUMMARY | 2024-06-20 20:11 | XMS_ITS | Clinical Summary ---
Author Organization [facility] Address [address] [place] [address] Care Team Providers Care Production Intern Name Role Phone Unavailable Primary Care Provider Unavailabl e Source Comments [facility],non-owned Affiliates and Associated Physician Practices is amultiple site organization consisting of ambulatory clinics and hospital sitesin [place], [place], [place] and [place]. This disclosure is being madepursuant to the Care Everywhere program and may not contain all information available regarding this patient. Last updated 17.[facility] Allergies No known active allergies Social History Tobacco Use Types Packs/Day Years Used Date Smoking Tobacco: Never Assessed Comments No Sex and Gender Information Value Date Recorded Sex Assigned at Not on file Legal Sex Female 5:40 AM SPRAY MIXER Gender Identity Not on file Sexual Orientation [...]
--- OUTSIDE RECORDS SUMMARY | 2024-06-20 20:11 | XMS_ITS | Clinical Summary ---
Author Organization [facility] at the Medical Office Building Address [address] [place] [phone] Care Team Providers Care Netting Weaver Name Role Phone Zak Arauz MD Primary [...] # Disposition: Follow up task sent to [facility] scheduling pool. Desires discharge home today. [...] (05/14/2022): When she was seen in the [facility] there was concern for a dropped beats and a arrhythmia and she was referred to MFM. A arrhythmia was also heard in her primary OB office. She was scanned by [facility] (care everywhere) which did not note [...] risk , antepa rtum 05/12/2022 Overview (06/23/2022): [facility] RN: Mariah Rodriguez - [phone] [x] Full [facility] Care; [x] Blue Team Referring Provider: [facility] - Hamida Morales [x] Dating Criteria: [...] Valentin [x] Method of feeding: breast [x] Loftsman: [x] PP Depression Discussed: plan reviewed and [...] often do you attend chur ch or quaker services? More than 4 times per year 06/30/2022 Do you belong to any clubs o r organizations such as zoroastrian groups, unions, fraternal or athletic groups, or [...] place to sleep or slept in a alf (including now)? 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 C ampus ([facility]LD) Last Filed Vital Signs Vital [...] GONORRHOEAE/C. TRACHOMATIS AMPLIFICATION STAT 02/05/2023 10:21 AM BUILDING CUSTODIAN from Last 3 Months or Most Recently Relevant to Health Maintenance Results * N. gonorrhoeae/C. trachomatis Amplification Urine (02/05/2023 10:21 AM BUILDING CUSTODIAN) C. trachomatis Not Detected Not Detected DEBBIE ARREOLA Comment:Testing performed by : [facility], [address] [place] [address]., [address] N. gonorrhoeae Not Detected Not Detected DEBBIE Comment: Interpretive Data This assay detects Chlamydia trachomatis and Neisseria gonorrhoeae by nucleic acid amplification testing (NAAT). This assay has been cleared by the [place] Food and Drug administration. The performance characteristics of this test have been verified by the [facility]. The performance characteristics of this test have not been evaluated in individuals less than 14 years of age. Current Interpretive Data last revised 2022. Testing performed by: [facility], [address] [place] [address]., [address] Urine (None) 02/05/2023 10:2 1 AM BUILDING CUSTODIAN 02/05/2023 10:30 AM BUILDING CUSTODIAN us Ana Paula [facility] MICROBIOLOGY - GENERAL ORDER RANDY Final Result DEBBIE [address] [facility] Department [place] [address] from Last 3 Months or Most Recently Relevant to Health Maintenance Insurance AETNA [facility]TER [facility] AETNA [facility] AETNA [facility] Advance Directives For more information, please contact: [phone] * Full Code (Latest Code Status on File) Date Activated Date Inactivated Comments 06/30/2022 12:39 AM 07/01/2022 8:58 PM * Full Code Date Activated Date Inactivated Comments 06/28/2022 9:29 PM 06/30/2022 12:39 AM Full CPR in case of cardiopulmonary arrest Care Teams Netting Weaver Relationship Specialty [place] [address] [place] [id number] PCP - General Internal Medicine 03/16/22
--- OUTSIDE RECORDS SUMMARY | 2024-06-20 20:11 | XMS_ITS | Clinical Summary ---
Author Organization [facility] Address [address] [place] [id number] Care Team Providers Care Track Layer Name Role Phone Unavailable Primary Care Provider [...] SMEAR 2021 INFLUENZA VACCINE (#1) 2023 Insurance [facility] MEDICAID
[2024-06-20 20:13] LABS: BEDSIDEPREGUCG Positive (Negative)
[2024-06-20 20:32] LABS: Add Urine Microscopic? YES; Appearance Urine Cloudy (Clear); Bacteria Urine 2+ /hpf; Bilirubin Urine Negative (Negative); Blood Urine 2+ (Negative); Color Urine Yellow (Yellow); Glucose Urine UA Negative (Negative); Ketones Urine Negative (Negative); Leukocyte Esterase Ur Negative LEU/UL (Negative); Need Manual Microscopic Reviewed; Nitrate Urine Negative (Negative); Non Pathogenic Casts 0-2; Protein Urine Negative (Negative); RBC Urine 51-100 /hpf (0-2); Specific Grav Ur 1.019 (1.001-1.035); Squamous Epithelial Cell Urine Moderate /hpf (Few); WBC Urine 0-5 /hpf (0-3)
--- NOTE | 2024-06-20 21:16 | ED_ITS ---
HPI - Abdominal Pain General Chief Complaint: Abdominal Pain Stated Complaint: 10 weeks Time Seen by Provider: 06/20/24 19:58 Source: patient Mode of arrival: ambulatory Limitations: no limitations History of Present Illness HPI narrative: Patient is a 23-year-old female who presents the ED with report of lower abdominal pain. Patient reports she is currently approximately 10 weeks gestation. Follows with [facility]. Reports over the past 1 week, she has been having intermittent pain throughout her lower abdomen, worse on the right side, radiating around to her right lower back. She has not tried anything for this pain. She denies significant nausea or vomiting, bowel issues. She does report white vaginal discharge, denies vaginal irritation or bleeding. She has previously been treated for yeast infection, but states the discharge has persisted. Denies fevers. Denies dysuria or hematuria. Related Data Allergies Allergy/AdvReac Type Severity Reaction Status Date / Time No Known Allergies Allergy Verified 06/20/24 18:54 Review of Systems 2 Review of Systems: All systems reviewed & are unremarkable except as noted in HPI. All systems reviewed & are unremarkable except as noted in HPI and below PMFSH Past Medical History Medical History Patient denies medical problems Social History Social History Smoking packs per day: 0.5 Smoking cigarettes per day: 10.0 Smoking status: Current every day smoker Exam 2 Narrative: GENERAL: Well appearing, well-nourished, non-toxic, in no acute distress. HEAD: Normocephalic, atraumatic. RESPIRATORY: Airway patent, respirations nonlabored. Clear to auscultation bilaterally, no rales, rhonchi, wheezing. CARDIOVASCULAR: Regular rate and rhythm without murmurs, rubs, or gallops. ABDOMINAL: Soft, mild tenderness palpation in suprapubic region, right lower quadrant, no rebound, nondistended. Normoactive BS. PELVIC: Normal external genitalia. Very mild amount of yellow physiologic discharge in vaginal vault. Cervix appears unremarkable. No significant CMT. No vaginal bleeding. No inflammation/edema of vulvar region. MUSCULOSKELETAL: Moves all extremities. No gross deformities. SKIN: Warm, dry, normal color. NEURO: A&O X3. Speech clear. Cranial nerves II-XII grossly intact. Steady gait. No ataxic movements. PSYCHIATRIC: Appropriate mood and affect. Normal interaction. Course Vital Signs Vital signs: Vital Signs Temperature 97.0 F L 06/20/24 18:57 Pulse Rate 114 H 06/20/24 18:57 Respiratory Rate 18 06/20/24 18:57 Blood Pressure 136/74 06/20/24 18:57 Pulse Oximetry 99 06/20/24 18:57 Oxygen Delivery Room Air 06/20/24 18:57 Temperature 97.0 F L 06/20/24 18:57 Pulse Rate 114 H 06/20/24 18:57 Respiratory Rate 18 06/20/24 18:57 Blood Pressure 136/74 06/20/24 18:57 Pulse Oximetry 99 06/20/24 18:57 Oxygen Delivery Room Air 06/20/24 18:57 MDM - Abdominal Pain MDM Narrative Medical decision making narrative: Patient presented to ED with 1 week history of lower abdominal pain, currently 10 weeks gestation. Also reporting white vaginal discharge. Vital signs are stable upon arrival. Patient in no acute distress. Laboratory studies are unremarkable. Mild anemia noted with hemoglobin of 11.0, consistent with previous records. No leukocytosis. Stable electrolytes. Normal LFTs and lipase. UA with some blood, moderate squamous cells, no signs of infection. Sent for culture. Patient denies urinary complaints. Beta hCG is 88,492. Ultrasound reassuring, single live IUP, 11 weeks gestation. No abnormalities noted. Pelvic exam performed and with evidence of physiologic discharge, no signs of yeast infection. Patient given fluids and Tylenol in the ED. On re- evaluation, she is feeling improved. Feel she is safe for discharge home with close outpatient follow-up with OBGYN. She has an appointment next week. Advised to continue Tylenol, stay well hydrated at home. Given return precautions. Discharged in stable condition. Medical Records Attestation: I reviewed the patient's medical records. Lab Data Attestation: I reviewed the patient's lab results. 06/20/24 19:45 06/20/24 19:45 Labs: Lab Results 06/20/24 06/20/24 06/20/24 Range/Units 19:44 19:45 20:09 WBC 9.4 (4.5-10.0) K/mm3 RBC 3.93 L (4.2-5.4) M/mm3 Hgb 11.0 L (12.0-15.0) g/dL Hct 33.6 L (37.0-47.0) % MCV 85.5 (80-100) fl MCH 28.0 (26-34) pg MCHC 32.7 (32-36) g/dl RDW 14.0 (11.5-14.5) % Plt Count 243 (150-375) k/mm3 MPV 10.7 H (7.4-10.4) fl Immature Gran % (Auto) 0.4 (0-0.5) % Neut % (Auto) 66.4 (45.5-73.1) % Lymph % (Auto) 25.2 (18.3-44.2) % [place] % (Auto) 5.4 (2.6-8.5) % Eos % (Auto) 2.3 (0-4.4) % Baso % (Auto) 0.3 (0.2-1.2) % Lymph # (Auto) 2.37 (0.9-3.2) K/mm3 [place] # (Auto) 0.5 (0.1-0.6) K/mm3 Eos # (Auto) 0.2 (0-0.3) K/mm3 Baso # (Auto) 0.0 (0.0-0.1) K/mm3 Abs Immat Gran (auto) 0.04 H (0.00-0.031) K/mm3 Absolute Neuts (auto) 6.2 (1.3-6.7) K/mm3 Absolute Nucleated RBC 0.000 (0.0-0.012) K/mm3 Nucleated RBC % 0.0 (0.0-0.2) % Sodium 136 L (137-145) mmol/L Potassium 3.7 (3.4-5.0) mmol/L Chloride 105 (98-107) mmol/L Carbon Dioxide 22 (22-30) mmol/L Anion Gap 9 (4-12) mmol/L BUN 7 (7-17) mg/dL Creatinine 0.47 L (0.7-1.0) mg/dL Estim Creat Clear Calc 133 ml/min Estimated GFR > 60 (59 - ) Glucose 87 (65-110) mg/dL Calcium 8.6 (8.4-10.2) mg/dL Total Bilirubin 0.2 (0.2-1.3) mg/dL AST 23 (14-36) U/L ALT 12 (6-35) U/L Alkaline Phosphatase 54 (38-126) U/L Total Protein 7.0 (6.3-8.2) g/dL Albumin 4.2 (3.5-5.1) g/dL Lipase 29 (23-300) U/L Beta HCG, Quant 43379.00 mIU/ML Urine Color Yellow (Yellow) Urine Appearance Cloudy H (Clear) Urine pH 7.0 (5.0-9.0) Ur Specific [place] 1.019 (1.001-1.035) Urine Protein Negative (Negative) mg/dL Urine Glucose (UA) Negative (Negative) mg/dL Urine Ketones Negative (Negative) mg/dL Ur Blood (Man) 2+ H (Negative) Urine Nitrate Negative (Negative) Urine Bilirubin Negative (Negative) Urine Urobilinogen 1.0 (<2.0) mg/dL Add Ur Microanalysis Reviewed Leukocyte Esterase Rfl Negative (Negative) AMAYA/UL Urine RBC 51-100 H (0-2) /hpf Urine WBC 0-5 (0-3) /hpf Ur Squamous Epith Cells Moderate (Few) /hpf Urine Bacteria 2+ H /hpf Urine Casts 0-2 POC Urine HCG, Qual (Negative) 06/20/24 Range/Units 20:11 WBC (4.5-10.0) K/mm3 RBC (4.2-5.4) M/mm3 Hgb (12.0-15.0) g/dL Hct (37.0-47.0) % MCV (80-100) fl MCH (26-34) pg MCHC (32-36) g/dl RDW (11.5-14.5) % Plt Count (150-375) k/mm3 MPV (7.4-10.4) fl Immature Gran % (Auto) (0-0.5) % Neut % (Auto) (45.5-73.1) % Lymph % (Auto) (18.3-44.2) % [place] % (Auto) (2.6-8.5) % Eos % (Auto) (0-4.4) % Baso % (Auto) (0.2-1.2) % Lymph # (Auto) (0.9-3.2) K/mm3 [place] # (Auto) (0.1-0.6) K/mm3 Eos # (Auto) (0-0.3) K/mm3 Baso # (Auto) (0.0-0.1) K/mm3 Abs Immat Gran (auto) (0.00-0.031) K/mm3 Absolute Neuts (auto) (1.3-6.7) K/mm3 Absolute Nucleated RBC (0.0-0.012) K/mm3 Nucleated RBC % (0.0-0.2) % Sodium (137-145) mmol/L Potassium (3.4-5.0) mmol/L Chloride (98-107) mmol/L Carbon Dioxide (22-30) mmol/L Anion Gap (4-12) mmol/L BUN (7-17) mg/dL Creatinine (0.7-1.0) mg/dL Estim Creat Clear Calc ml/min Estimated GFR (59 - ) Glucose (65-110) mg/dL Calcium (8.4-10.2) mg/dL Total Bilirubin (0.2-1.3) mg/dL AST (14-36) U/L ALT (6-35) U/L Alkaline Phosphatase (38-126) U/L Total Protein (6.3-8.2) g/dL Albumin (3.5-5.1) g/dL Lipase (23-300) U/L Beta HCG, Quant mIU/ML Urine Color (Yellow) Urine Appearance (Clear) Urine pH (5.0-9.0) Ur Specific [place] (1.001-1.035) Urine Protein (Negative) mg/dL Urine Glucose (UA) (Negative) mg/dL Urine Ketones (Negative) mg/dL Ur Blood (Man) (Negative) Urine Nitrate (Negative) Urine Bilirubin (Negative) Urine Urobilinogen (<2.0) mg/dL Add Ur Microanalysis Leukocyte Esterase Rfl (Negative) AMAYA/UL Urine RBC (0-2) /hpf Urine WBC (0-3) /hpf Ur Squamous Epith Cells (Few) /hpf Urine Bacteria /hpf Urine Casts POC Urine HCG, Qual Positive (Negative) Imaging Data Attestation: I personally reviewed and interpreted this imaging study as follows: Radiologist's impression: ITS Impressions Ultrasound 06/20/24 20:38 IMPRESSION: Single live fetus of 11 weeks and 1 day. Discharge Plan Discharge Clinical Impression: Lower abdominal pain, 11 weeks gestation of Patient Disposition: Home Condition: Stable Instructions: Antibiotic Form, Abdominal Pain in (ED), at 11 to 14 Weeks (ED) Additional Instructions: Continue Tylenol as needed for pain. Stay well hydrated. Follow-up with OBGYN for further evaluation. Return to the ED for new or worsening concerns. Patient Language: Bulgarian Prescriptions: No Action Saline Nasal 0.65 % aerosol,spray 2 spray intranasal QID PRN (Reason: dry nasal passages) Qty: 44 0RF metronidazole 500 mg tablet 500 mg PO Q12H 7 Days Qty: 14 0RF methylprednisolone [Medrol (Edwin)] 4 mg tablets,dose pack See Rx Instructions .ROUTE .COMPLEX Qty: 21 0RF Rx Instructions: orally per package directions ondansetron 4 mg tablet,disintegrating 4 mg PO Q8H PRN (Reason: nausea and vomiting) Qty: 14 0RF prednisone 20 mg tablet 20 mg PO DAILY 5 Days Qty: 5 0RF famotidine 20 mg tablet 20 mg PO BID Qty: 14 0RF ondansetron 4 mg tablet,disintegrating 4 mg PO Q8H Qty: 14 0RF acetaminophen 650 mg tablet extended release 650 mg PO .q6 hr PRN (Reason: pain) Qty: 20 0RF ibuprofen 200 mg capsule 600 mg PO Q6H PRN (Reason: pain) Qty: 20 0RF Follow-up/Referrals: Stephanie,Catie Crespo [Primary Care Provider] - Time of Disposition: 22:13
[2024-06-20] MEDS: SODIUM CHLORIDE 0.9% IV 1,000 ML 999 ML IV CONT (21:50)
[2024-06-20] MEDS: ACETAMINOPHEN 500 MG TABLET 1000 MG PO (21:51)
== END 2024-06-20 22:26 | disposition home or self-care (01) ==
PROVIDERS: Emergency Medicine; Emergency Provider Physician Assistant; PCP Internal Medicine Infectious Disease
DX: O99.891 Other specified diseases and conditions complicating pregnancy (principal); R10.30 Lower abdominal pain, unspecified; Z3A.10 10 weeks gestation of pregnancy
CPT/HCPCS: 36415; 76801; 80053; 81001; 81025; 83690; 84702; 85025; 87086; 96360; 99284; A9270; J7030

== ENCOUNTER 2024-08-15 15:58 | Emergency (ER) | payer OTHER, SELFPAY ==
--- OUTSIDE RECORDS SUMMARY | 2024-08-15 16:00 | XMS_ITS | Clinical Summary ---
Author Organization [facility] Address [address] [facility] [place] [address] Care Team Providers Care Child & Adolescent Psychiatrist Name Role Phone Unavailable Primary Care Provider Unavailabl e Source Comments [facility],non-owned Affiliates and Associated Physician Practices is amultiple site organization consisting of ambulatory clinics and hospital sitesin [place], [place], [place] and [place]. This disclosure is being madepursuant to the Care Everywhere program and may not contain all information available regarding this patient. 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
--- OUTSIDE RECORDS SUMMARY | 2024-08-15 16:00 | XMS_ITS | Data Portability ---
Author Organization [place] - [facility], Main Office Address [address] [place] [address] Assessment Encounter Date Assessment Date Assessment LastModified by Organization Details LastModified Time 01/27/2023 01/27/2023 Assessment: Nicotine Mild OSAHS, AHI = 8 PLMD Hypoventilation Plan: The following were reviewed and explained to the patient: primary care/referral note [facility] home sleep study 05/27/22 AHI = 8, [...] Follow-up: 1 week after titration sleep study [facility] Not available 01/27/2023 09:51:51 05/27/2023 05/27/2023 Assessment: Rhinitis Mild OSAHS, AHI = 8 Plan: The following were reviewed and explained to the patient: [facility] home sleep study 05/27/22 AHI = 8, supine AHI = 10 [facility] titration sleep study 05/15/23 sleep onset = [...] carrier. Patient will setup an appointment with [facility] for supplies and pressure adjustments. A [...] 0.53 L (35%), DLCO 63%, DLCO/VA 80% [facility] home sleep study 05/27/22 AHI = 8, supine AHI = 10 [facility] titration sleep study 05/15/23 sleep onset = [...] carrier. Patient will setup an appointment with [facility] for supplies and pressure adjustments. A [...] arnel, titration study - Auth approved, auth# [id number] 21, valid 01/27/23 - 11/28/[address] [facility], [address] [place], [address], 4 15:31:05 Medication Orders None recorded. Patient TargetsNo targets recorded. Patient InstructionsNo instructions recorded. Reason for Referral None Reported. Results Created Date Observation Date Name Description Value Unit Range Abnormal Flag Note LastModifiedBy Organization Detail LastModifiedTime 06/29/19 24 05/15/2023 polys omnog arnel, titra tion study No observ ation record ed. BARCODE [facility] [address] [place], [address], 06/29/2023 15:12:39 07/29/19 24 07/28/2023 compl ete PFT w/ post [facility] hodil ator ashlie metry * No observ ation record ed. BARCODE Not Available 2023 12:22:29 Result Notes None recorded. Problems Name Problem SNOMED Code Status Onset Date Resolution Date Notes Provider Name and Address Organization Details Recorded Time Obstructive sleep apnea syndrome 04459971 Active 023 Rick Sargent MD [address] 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 Medical Equipment None Reported. [...] Not Available Not Available Vitals Date Recorded Heart rate Heart rate Respiratory rate Provider Name and Address Organization Details Last Updated DateTime 05/27/2023 98 /min 98 /min 15 /min Rick Sargent MD [address] [facility], [facility] [address], [place], [address], [place] [facility] [facility] 05/27/2023 10:19:19 Date Recorded Body height Body mass index (BMI) Body weight Oxygen saturation Oxygen saturation in Arterial blood by Pulse oximetry Body temperature Systolic And Diastolic Provider Name and Address Organization Details Last Updated DateTime 04/18/202 4 162.56 cm 24.2 kg/m2 79968.5 2 g 98 % 98 % 97.2 [degF] 120/76 mm[Hg] Jax Hairston [facility] [employer] [facility] 4 09:35:32 Date Recorded Heart rate Heart rate Body temperature Respiratory rate Provider Name and Address Organization Details Last Updated DateTime 08/26/2023 108 /min 108 /min 98.1 [degF] 14 /min Rick Sargent MD [address] [facility], [address], [address] [facility] 08/26/2023 15:59:25 Date Recorded Body height Body mass index (BMI) Body weight Oxygen saturation Oxygen saturation in Arterial blood by Pulse oximetry Systolic And Diastolic Provider Name and Address Organization Details Last Updated DateTime 4 162.56 cm 24.9 kg/m2 79242.8 9 g 98 % 98 % 118/68 mm[Hg] Jax Hairston [facility] [employer] [facility] [employer] 4 15:26:25 Date Recorded Heart rate Respiratory rate Provider N kings and Address Organization Details Last Updated DateTime 01/27/2023 76 /min 15 /min Rick Sargent MD [address] [facility], [place] [address], [place], [address], [place] [employer] [facility] 01/27/2023 09:47:39 Date Recorded Body weight Body mass index (BMI) Body height Body temperature Heart rate Oxygen saturation Oxygen saturation in Arterial blood by Pulse oximetry Systolic And Diastolic Provider Name and Address Organization Details Last Updated DateTime 3 92622.6 7 g 25.4 kg/m2 162.56 cm 98.1 [degF] 76 /min 98 % 98 % 118/76 mm[Hg] Sandra Green MA [employer] [facility] 3 09:19:25 Social History Question Answer Notes LastModified by Organizat ion Details LastModified Time Tobacco Smoking Status Current Every Day Smoker Sandra Green MA [facility], [facility] 01/27/2023 09:15:26 What Is Your Level Of [...] anxious, or unable to sleep at night)? [id number] Information not available 01/27/2023 Family History Relationship [...] SNOMED-CT Code Diagnosis ICD10 Code Diagnosis Note [id number] Rick Sargent MD [facility] [address] [address] 01/27/2023 09:01:49 01/28/2023 08:54:47 Obstructive sleep apnea syndrome 49921377 G47.33 G47.36 G47.61 [id number] Rick Sargent MD [place] [address] 05/27/2023 09:22:09 05/28/2023 08:43:41 Obstructive sleep apnea syndrome 67303003 G47.33 [id number] Rick Sargent MD [place] [address] 08/26/2023 15:07:03 08/27/2023 08:09:56 Obstructive sleep apnea syndrome 27452412 G47.33 Health Concerns Section Related Observation LastModified by Organization Detai ls LastModified Time None Recorded Concern Status LastModified by Organization Details LastModified Time None Recorded Advance Directives Directive None Recorded Payers Insurance Date Sequence Insurance Name Policy Number Policy Cantu Covered Member ID Cantu Member ID Guarantor Name 08/14/2024 1 [employer] [place] - DOS ON OR AFTER 2020 (MEDICAID REPLACEMENT - HMO) Davida Juan [id number] Davida Juan 07/24/2024 [facility] Davida Juan SELF SELF Davida G Drake 08/14/2024 1 [facility] ON OR AFTER 08/08/20 (MEDICAID REPLACEMENT - HMO) Davida Mayer Drake [id number] Davida Mayer Drake 08/14/2024 2 [place]: [place] [employer] Davida Juan [id number] Davida Mayer Drake Notes Date Note Type Note Provider Name and Address Organization Details Recorded Time 01/27/2023 text/html Primary care/Ref erring provider: Sammie Coates MD During the [facility] home sleep study on 05/27/22 AHI = [...] moderate chance of dozing. Rick Sargent MD [address] [place] [address], [phone], [place] [facility] [facility] 01/27/2023 09:58:37 05/27/2023 text/html Primary care/Ref erring provider: Zak Arauz MD; Sammie Coates MD During the [facility] home sleep study on 05/27/22 AHI = 8, supine AHI = 10. During the [facility] titration sleep study on 05/15/23, sleep onset = 17 minutes, REM onset = 185.5 minutes. The patient uses a [employer] AirSense 11 autoset unit with heated humidification. The patient does not need the ramp to start low and go up slowly on the pressure. There is no xerostomia in a.m. There is no hose/mask condensation with water. The patient wears a [employer] small Veronika nasal mask without chin strap. [...] moderate chance of dozing. Rick Sargent MD [address] [place] [address], [facility] [address], [place], [address], [place] [facility] [email or web address] 06/11/2023 08:45:56 08/26/2023 text/html Primary care/Ref erring provider: Zak Arauz MD; Sammie Coates MD CC: My compliance rate is down as my older daughter won't go to sleep until late. During the [facility] home sleep study on 05/27/22 AHI = 8, supine AHI = 10. During the [facility] titration sleep study on 05/15/23, sleep onset [...] water. The patient wears a [employer] small Veronika nasal mask without chin strap. [...] moderate chance of dozing. Rick Sargent MD [address] [place] [address], [place], [address], [place] [facility] 08/26/2023 16:07:27 OBGyn Episode No OBEpisode recorded.
--- OUTSIDE RECORDS SUMMARY | 2024-08-15 16:00 | XMS_ITS | Data Portability ---
Author Organization [employer] , [facility] Address [address] [place] [address] Assessment No assessment recorded. 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 Not available Not available Not available Lab urinaly sis, dipstic k 2024 025 [facility] [place], [address] [place], [address], 07/18/2024 14:11:47 culture , urine 2024 025 [email or web address], [address] [place], [address], 07/19/2024 17:54:33 unliste d lab - sureswa b(R) advance d vaginit is plus, tma 2024 025 [facility], [address] [place], [address], 07/20/2024 15:17:11 bacteri al vaginos is + vaginit is panel, vaginal 2024 025 [facility], [address] [place], [address], 06/28/2024 12:37:08 urinaly sis, dipstic k 2024 025 [email or web address] [facility], [address] [place], [address], 06/26/2024 15:19:37 culture , urine 2024 025 [facility], [address] [place], [address], 06/28/2024 22:16:41 hemoglo bin A1c, QN, blood 2024 025 [facility], [address] [place], [address], 06/27/2024 12:46:25 abo group + rh type, blood 2024 025 [facility], [address] [place], [address], 06/27/2024 15:58:44 CBC w/ auto diff 2024 025 [facility], [address] [place], [address], 06/27/2024 12:36:14 CT + NG DNA, PCR, unspeci fied specime n 2024 025 [facility], [address] [place], [address], 06/28/2024 13:59:08 drug of abuse panel, urine 2024 025 [facility], [address] [place], [address], 06/28/2024 11:40:27 obstetr ic screen + HIV, serum or blood 2024 025 [facility], [address] [place], [address], 06/27/2024 14:55:08 measles igg Ab, serum 2024 025 [facility], [address] [place], [address], 06/27/2024 15:58:43 varicel la-zost er igg Ab screen, serum 2024 025 [facility], [address] [place], [address], 06/27/2024 15:58:42 antibod y screen, serum or plasma 2024 025 [facility], [address] [place], [address], 06/27/2024 15:58:44 urinaly sis, dipstic k 2024 025 [email or web address] [facility], [address] [place], [address], 05/29/2024 15:36:22 culture , urine 2024 025 [facility], [address] [place], [address], 05/30/2024 22:29:40 beta-HC G, quantit ative, serum or plasma 2024 025 [facility], [address] [place] [address], [address], 05/16/2024 11:52:49 Referral None recorde d. Procedures None recorde d. Surgeries None recorde d. Imaging US, obstetr ic, transva ginal 2024 025 KATHLEEN Not available 05/29/2024 19:21:35 US, transva ginal 2024 025 KATHLEEN Not available 05/16/2024 08:41:49 Medication Orders cetiriz ine 10 mg tablet 2024 025 [facility][id number], [address], [place], [address], 07/24/2024 15:03:48 famotid ine 20 mg tablet [address] [facility] [place][id number], [address] [facility] [place] [place], [address], 07/24/2024 14:50:58 M-Bianca Plus 27 mg iron-[address] tablet [address] [facility] [place]armacy #[id number], [address] [place], [address], 07/24/2024 15:03:48 amoxici llin 500 mg capsule [address] [facility] [place]Pharmacy #[id number], [address] [place], [address], 07/24/2024 14:33:09 tercona zole 0.4 % vaginal cream [address] [facility] [place]Pharmacy #[id number], [address] [place], [address], 08/01/2024 05:01:42 Macrobi d 100 mg capsule [address] [facility] [place]armacy #[id number], [address] [place], [address], 08/03/2024 05:01:44 nicotin e 14 mg/24 hr daily transde rmal patch [address] [facility] [place] #[id number], [address] [facility] [place] [place], [address], 06/26/2024 14:43:16 pyridox ine (vitami n B6) 25 mg tablet 2024 025 [email or web address] [facility]/Ph[facility]acy #[id number], [address] [place], [address], 06/27/2024 18:15:32 Unisom (doxyla mine) 25 mg tablet 2024 025 [facility] #[id number], [address] [place], [address], 05/29/2024 15:36:24 Prenata l 28 mg iron-80 0 mcg tablet 2024 025 [facility] #[id number], [address] , [place], [address], 05/29/2024 16:29:59 Patient TargetsNo targets recorded. Patient InstructionsNo instructions recorded. Reason for Referral None Reported. Results Created Date Observation Date Name Description Value Unit Range Abnormal Flag Note LastModifiedBy Organization Detail LastModifiedTime 06/28/1906/27/2024 VARIC NALINI ZOSTE R VIRUS ANTIB JAJA (IGG) varicella zoster virus antibody (IgG) 2.08 S/co normal Signa l to Cut-o ff S/CO Inter preta tion ----- ---- ----- ----- ----- ----- -- <1.00 Negat lee - Antib jaja not detec dima > or = 1.00 Posit lee - Antib jaja detec dima A posit lee resul t indic ates that the patie nt has antib jaja to VZV but does not diffe renti ate betwe en an activ e or past infec tion. The clini tana diagn osis must be inter prete d in conju nctio n with the clini tana signs and sympt oms of the patie nt. This assay relia jass measu res immun ity due to previ ous infec tion but may not be sensi tive enoug h to detec t antib odies induc ed by vacci natio n. Thus, a negat lee resul t in a vacci nated indiv idual does not neces saril y indic ate susce ptibi lity to VZV infec tion. A more sensi tive test for vacci natio n-ind uced immun ity is Varic nalini Zoste r Virus Antib jaja Immun ity Scree n, ACIF. Not Available [address], [address], 06/27/2024 15:58:42 06/28/19 25 06/27/2024 MEASL ES AB (IGG) , IMMUN E STATU S measles Ab (IgG), immune status 28.00 AU/mL normal AU/mL Inter preta tion ----- ----- ----- ---- <13.5 0 Not consi stent with immun ity 13.50 -16.4 9 Equiv ocal >16.4 9 Consi stent with immun ity The prese nce of measl es IgG sugge sts immun izati on or past or curre nt infec tion with measl es virus . For addit ional infor maria dolores jansen e refer to http: //[facility] mary brady.Que stDia gnost ics.c om/fa q/FAQ 162 (This link is being provi ded for infor mindy lemus/ educa eric l purpo ses only. ) Not Available [address], [address], 06/27/2024 15:58:43 06/28/19 25 06/27/2024 ANTIB JAJA SCREE N, RBC W/REF L ID, TITER AND AG antibody screen, RBC w/refl id, titer and Ag NO ANTIBO DIES DETECT ED normal Refer ence range No antib odies detec dima This assay is a scree so test for the detec tion of red blood cell antib odies . The test is not to be used for pretr ansfu mp scree so or for the medic al manag ement of an alloi mmuni zed pregn love. Not Available [address], [address], 06/27/2024 15:58:44 06/28/19 25 06/27/2024 ABO GROUP AND RH TYPE ABO group O Not Available [address] [place], [address], 06/27/2024 15:58:44 06/28/19 25 06/27/2024 ABO GROUP AND RH TYPE Rh type RH(D) POSITI VE For addit ional infor maria dolores jansen refer to http: //[facility] mary townsendQue stDia gnost ics.c om/fa q/FAQ 111 (This link is being provi ded for infor mindy lemus/ educa eric l purpo ses only. ) NO COLLE CTION DATE RECEI SHAWN. WE HAVE USED THE DATE THE SPECI MEN WAS RECEI SHAWN BY THIS LABOR ATORY THE COLLE CTION DATE. IF THIS IS INCOR RECT, MARIA DOLORES E CONTA CT CLIEN T SERVI ALYSON. PHONE CJE R: [phone] [phone] Not Available [employer] [facility] [address] [place], [address], 06/27/2024 15:58:44 05/16/19 25 05/16/2024 HCG, TOTAL , QUANT HCG, total, quant 23355 mIU/m L <5 high Refer ence Range [...] has not been valid ated by the [facility] actur er of this assay . Not Available [facility] [address] [place], [address], 05/16/2024 11:52:49 05/18/19 25 05/18/2024 HCG, TOTAL , QUANT HCG, total, quant 64992 mIU/m L <5 high Refer ence Range [...] has not been valid ated by the [facility] actur er of this assay . Not Available [facility] [address] [place], [address], 05/18/2024 12:16:37 05/30/19 25 05/30/2024 CULTU RE, URINE , ROUTI NE culture, urine, routine SEE NOTE CULTU RE, URINE , ROUTI NE Micro Numbe r: [id number] Test Statu s: Final Speci men Sourc e: Urine Speci men Quali ty: Adequ ate Resul t: No Growt h Not Available [facility] [address] [place], [address], 05/30/2024 22:29:40 05/30/19 25 05/29/2024 urina lysis , dipst ick Leukocytes Negati ve Not Available [address], [address], 05/29/2024 15:31:59 05/30/19 25 05/29/2024 urina lysis , dipst ick Nitrite negati ve Not Available [address], [address], 05/29/2024 15:31:59 05/30/19 25 05/29/2024 urina lysis , dipst ick Urobilinogen .2 Not Available [address], [address], 05/29/2024 15:31:59 05/30/19 25 05/29/2024 urina lysis , dipst ick Protein Negati ve Not Available [address], [address], 05/29/2024 15:31:59 05/30/19 25 05/29/2024 urina lysis , dipst ick pH 5.0 Not Available [facility] [address], [place], [address], 05/29/2024 15:31:59 05/30/19 25 05/29/2024 urina lysis , dipst ick Blood Non-He molyze d: Trace Not Available [address], [place], [address], 05/29/2024 15:31:59 05/30/19 25 05/29/2024 urina lysis , dipst ick Specific [place] 1.030 Not Available [facility] [address], [place], [address], 05/29/2024 15:31:59 05/30/19 25 05/29/2024 urina lysis , dipst ick Ketone Negati ve Not Available [address], [place], [address], 05/29/2024 15:31:59 05/30/19 25 05/29/2024 urina lysis , dipst ick Bilirubin Negati ve Not Available [address], [place], [address], 05/29/2024 15:31:59 05/30/19 25 05/29/2024 urina lysis , dipst ick Glucose Negati ve Not Available [facility] [address], [place], [address], 05/29/2024 15:31:59 05/30/19 25 05/29/2024 urina lysis , dipst ick Appearance Clear Not Available [facility] [address], [place], [address], 05/29/2024 15:31:59 05/30/19 25 05/29/2024 urina lysis , dipst ick Color Yellow Not Available [facility] [address] [facility], [place], [address], 05/29/2024 15:31:59 06/27/19 25 06/27/2024 CBC (INCL UDES DIFF/ PLT) WBC 7.7 thous and/u L 4.0 - 9.8 normal Not Available [email or web address] [address] [place] [address], [address], 06/27/2024 12:36:14 06/27/19 25 06/27/2024 CBC (INCL UDES DIFF/ PLT) RBC 3.7 kimberley on/uL 3.9 - 4.9 low Not Available [email or web address] [address] [place] [address], [address], 06/27/2024 12:36:14 06/27/19 25 06/27/2024 CBC (INCL UDES DIFF/ PLT) hemoglobin 10.7 g/dL 11.8 - 14.8 low Not Available [email or web address] [address] [place] [address], [address], 06/27/2024 12:36:14 06/27/19 25 06/27/2024 CBC (INCL UDES DIFF/ PLT) hematocrit 32.3 % 35.5 - 44.0 low Not Available [email or web address] [address] [place] [address], [address], 06/27/2024 12:36:14 06/27/19 25 06/27/2024 CBC (INCL UDES DIFF/ PLT) MCV 87.3 fL 82.0 - 99.0 normal Not Available [email or web address] [address] [place] [address], [address], 06/27/2024 12:36:14 06/27/19 25 06/27/2024 CBC (INCL UDES DIFF/ PLT) MCH 28.9 pg 27.2 - 32.6 normal [place], [address], 06/27/2024 12:36:14 06/27/19 25 06/27/2024 CBC (INCL UDES DIFF/ PLT) MCHC 33.1 g/dL 31.5 - 35.5 normal Not Available [address], [address], 06/27/2024 12:36:14 06/27/19 25 06/27/2024 CBC (INCL UDES DIFF/ PLT) RDW-CV 14.0 % 11.5 - 14.5 normal Not Available [address], [address], 06/27/2024 12:36:14 06/27/19 25 06/27/2024 CBC (INCL UDES DIFF/ PLT) platelet 238 thous and/u L 140 - 350 normal Not Available [address], [address], 06/27/2024 12:36:14 06/27/19 25 06/27/2024 CBC (INCL UDES DIFF/ PLT) MPV 11.5 fL 9.3 - 12.4 normal Not Available [address], [address], 06/27/2024 12:36:14 06/27/19 25 06/27/2024 CBC (INCL UDES DIFF/ PLT) absolute neutrophil 5.05 thous and/u L 1.90 - 7.00 normal Not Available [address], [address], 06/27/2024 12:36:14 06/27/19 25 06/27/2024 CBC (INCL UDES DIFF/ PLT) absolute lymphocyte 1.94 thous and/u L 0.70 - 4.50 normal Not Available [address], [address], 06/27/2024 12:36:14 06/27/19 25 06/27/2024 CBC (INCL UDES DIFF/ PLT) absolute monocyte 0.40 thous and/u L 0.10 - 1.30 normal Not Available [address], [address], 06/27/2024 12:36:14 06/27/19 25 06/27/2024 CBC (INCL UDES DIFF/ PLT) absolute eosinophil 0.20 thous and/u L <0.70 normal Not Available [address], [address], 06/27/2024 12:36:14 06/27/19 25 06/27/2024 CBC (INCL UDES DIFF/ PLT) absolute basophil 0.06 thous and/u L <0.20 normal Not Available [address], [address], 06/27/2024 12:36:14 06/27/19 25 06/27/2024 CBC (INCL UDES DIFF/ PLT) absolute immature granulocyte 0.02 thous and/u L <0.03 normal Not Available [address], [address], 06/27/2024 12:36:14 06/27/19 25 06/27/2024 HEMOG LOBIN A1C hemoglobin A1C 4.9 % <5.7 normal The refer ence range for HbA1c is indic ated in the table below . Sugge sted Diagn osis =6.5% Consi stent with diabe nani 5.7 6.4% Consi stent with incre ased risk for diabe nani (pred iabet ic) <5.7% Consi stent with the absen ce of diabe nani Not Available [address], [address], 06/27/2024 12:46:25 06/27/1906/27/2024 OB PANEL - STD BLOOD WORK hep BS Ag Non-Re active non-re active normal Not Available [address], [address], 06/27/2024 14:55:08 06/27/19 25 06/27/2024 OB PANEL - STD BLOOD WORK hep C Ab Non-Re active non-re active normal Not Available [address], [address], 06/27/2024 14:55:08 06/27/19 25 06/27/2024 OB PANEL - STD BLOOD WORK HIV 1/2 Ag/Ab Non-Re active non-re active normal Not Available [address], [address], 06/27/2024 14:55:08 06/27/19 25 06/27/2024 OB PANEL - STD BLOOD WORK syphilis Ab Non-Re active non-re active normal Not Available [address], [address], 06/27/2024 14:55:08 06/27/19 25 06/27/2024 OB PANEL - STD BLOOD WORK rubella Ab IgG 24.2 IU/mL normal INTER PRETI VE INFOR MATIO N: Rubel la Antib jaja, IgG. < 5.0 IU/mL ..... ..... . Not consi stent with immun ity 5.0 - 9.9 IU/mL ..... . Equiv ocal: Indet ermin ate-R epeat testi ng in 10-14 days may be helpf ul. > or = 10.0 IU/mL ... Consi stent with immun ity The prese nce of Rubel la IgG antib jaja sugge st respo nse to immun izati on or prior /curr ent expos ure to the Rubel la virus . Not Available [address], [address], 06/27/2024 14:55:08 06/27/19 25 06/28/2024 DRUG ABUSE PANEL 7 W/CON FIRM amphetamines Negati ve negati ve normal Not Available [address], [address], 06/28/2024 11:40:27 06/27/19 25 06/28/2024 DRUG ABUSE PANEL 7 W/CON FIRM barbiturates Negati ve negati ve normal Not Available [facility] [address] [place], [address], 06/28/2024 11:40:27 06/27/19 25 06/28/2024 DRUG ABUSE PANEL 7 W/CON FIRM benzodiazepi quinton Negati ve negati ve normal Not Available [facility] [address] [place], [address], 06/28/2024 11:40:27 06/27/19 25 06/28/2024 DRUG ABUSE PANEL 7 W/CON FIRM cocaine metabolites Negati ve negati ve normal Not Available [facility] [address] [place], [address], 06/28/2024 11:40:27 06/27/19 25 06/28/2024 DRUG ABUSE PANEL 7 W/CON FIRM cannabinoids Negati ve negati ve normal Not Available [facility] [address] [place], [address], 06/28/2024 11:40:27 06/27/19 25 06/28/2024 DRUG ABUSE PANEL 7 W/CON FIRM methadone Negati ve negati ve normal Not Available [facility] [address] [place], [address], 06/28/2024 11:40:27 06/27/19 25 06/28/2024 DRUG ABUSE PANEL 7 W/CON FIRM opiates Negati ve negati ve normal Not Available [facility] [address] [place], [address], 06/28/2024 11:40:27 06/27/19 25 06/28/2024 DRUG ABUSE PANEL 7 W/CON FIRM creatinine, urine 146 mg/dL 20 - 275 normal Not Available [facility] [address] [place], [address], 06/28/2024 11:40:27 06/27/19 25 06/28/2024 VAGIN ITIS PANEL bacterial vaginosis BV neg negati ve normal Not Available [facility] [address] [place], [address], 06/28/2024 12:37:08 06/27/19 25 06/28/2024 VAGIN ITIS PANEL austin species C. spp POS negati ve abnormal Not Available [address], [address], 06/28/2024 12:37:08 06/27/19 25 06/28/2024 VAGIN ITIS PANEL austin glabrata C. gla neg negati ve normal Not Available [address], [address], 06/28/2024 12:37:08 06/27/19 25 06/28/2024 VAGIN ITIS PANEL trichomonas vaginalis CV/TV TRICH neg negati ve normal Not Available [address], [address], 06/28/2024 12:37:08 06/27/19 25 06/28/2024 CT/NG chlamydia trachomatis CT neg negati ve normal This repor t is inten ded for us in clini tana monit oring and manag ement of patie nts. It is not inten ded for use in medic al-le gal appli catio n. Not Available [address], [address], 06/28/2024 13:59:08 06/27/19 25 06/28/2024 CT/NG neisseria gonorrhoeae GC neg negati ve normal This repor t is inten ded for us in clini tana monit oring and manag ement of patie nts. It is not inten ded for use in medic al-le gal appli catio n. Not Available [address], [address], 06/28/2024 13:59:08 06/27/19 25 06/28/2024 CULTU RE, URINE , ROUTI NE culture, urine, routine SEE NOTE abnormal CULTU RE, URINE , ROUTI NE Micro Numbe r: [id number] Test Statu s: Final Speci men Sourc e: Urine Speci men Quali ty: Adequ ate Resul t: 10,00 0-49, 000 CFU/m L of Group B Strep tococ cus isola dima Beta- hemol ytic strep tococ ci are predi ctabl y susce ptibl e to Penic illin and other beta- lacta ms. Robynce ptibi lity testi ng not routi jackie perfo rmed. Pleas e conta ct the labor atory withi n 3 days if susce ptibi lity testi ng is hernan ed. Comme nt: Eryth romyc in and clind amyci n are not recom sylvie d for treat ment of urina ry tract infec tions , but clind amyci n may be usefu l for treat ment of recto vagin al colon izati on or infec tion. Any amoun t of group B Strep tococ cus in urine speci mens obtai luiza from pregn ant femal es is a marke r of genit al tract colon izati on. If this patie nt is pregn ant, pleas e refer to ACOG guide lines for appro priat e scree so and manag ement of pregn ant women . Not Available [employer] [facility] [address] [place], [address], 06/28/2024 22:16:41 06/27/19 25 06/26/2024 urina lysis , dipst ick Leukocytes Negati ve Not Available [address], [address], 06/26/2024 14:37:41 06/27/19 25 06/26/2024 urina lysis , dipst ick Nitrite negati ve Not Available [address], [address], 06/26/2024 14:37:41 06/27/19 25 06/26/2024 urina lysis , dipst ick Urobilinogen .2 Not Available [address], [address], 06/26/2024 14:37:41 06/27/19 25 06/26/2024 urina lysis , dipst ick Protein Trace Not Available [address], [place], [address], 06/26/2024 14:37:41 06/27/19 25 06/26/2024 urina lysis , dipst ick pH 6.5 Not Available [address], [place], [address], 06/26/2024 14:37:41 06/27/19 25 06/26/2024 urina lysis , dipst ick Blood Modera te Not Available [address], [place], [address], 06/26/2024 14:37:41 06/27/19 25 06/26/2024 urina lysis , dipst ick Specific [place] 1.010 Not Available [address], [place], [address], 06/26/2024 14:37:41 06/27/19 25 06/26/2024 urina lysis , dipst ick Ketone Modera te Not Available [address], [place], [address], 06/26/2024 14:37:41 06/27/19 25 06/26/2024 urina lysis , dipst ick Bilirubin Negati ve Not Available [address], [place], [address], 06/26/2024 14:37:41 06/27/19 25 06/26/2024 urina lysis , dipst ick Glucose Negati ve Not Available [address], [place], [address], 06/26/2024 14:37:41 06/27/19 25 06/26/2024 urina lysis , dipst ick Appearance Cloudy Not Available [facility] [address], [place], [address], 06/26/2024 14:37:41 06/27/19 25 06/26/2024 urina lysis , dipst ick Color Yellow Not Available [facility] [address], [place], [address], 06/26/2024 14:37:41 06/29/19 25 06/28/2024 CHROM OSOME S 13, 18, 21 + SEX CHROM OSOME PANKAJ SIS chromosomes 13, 18, 21 + sex chromosome analysis Negati ve normal See PDF for compl ete resul ts. Overa ll Resul t: Negat lee Negat lee for all order ed condi tions Clini tana Notes : * The resid ual risks provi ded repre sent the [facility] e that the pregn love is affec dima with the indic ated chrom osome aneup loidy in view of a negat lee resul t. * This is a scree so test; there fore, false posit lee and false negat lee resul ts can occur . No irrev ersib le decis ion shoul d be made based on these findi ngs alone . Clini tana corre latio n with ultra sound findi ngs and histo ry is indic ated. If defin itive diagn osis is hernan ed, chori onic villu s sampl ing or amnio cente sis is neces arcelia. fract ion: > 30.0% - fract ion is one compo nent of the algor ithm used and is combi luiza with other quali ty metri cs to deter mine the aneup loidy scree so resul t. Not Available [facility] [address], [place], [address], 07/02/2024 14:45:11 06/29/19 25 06/28/2024 CONSU LTATI ON REPOR T consultation report Please refer to attach ed PDF for Consul tation Report normal Not Available [facility] [address] [place], [address], 07/04/2024 11:15:13 06/29/19 25 06/28/2024 HARRY MENTA L PANEL (CF + SMA) fundamental panel (CF + sma) Negati ve normal See PDF for compl ete resul ts. Overa ll Resul t: Negat lee No disea se-ca using mutat ions detec dima. Not Available [facility] [address] [place], [address], 07/05/2024 13:45:04 06/29/19 25 06/28/2024 HARRY MENTA L PLUS PANEL , HARRY MENTA L PANEL fundamental plus panel, fundamental panel Negati ve normal See PDF for compl ete resul ts. Overa ll Resul t: Negat lee No disea se-ca using mutat ions detec dima. Not Available [facility] [address] [place], [address], 07/08/2024 17:16:35 07/19/19 25 07/20/2024 CULTU RE, URINE , ROUTI NE culture, urine, routine SEE NOTE abnormal CULTU RE, URINE , ROUTI NE Micro Numbe r: [id number] Test Statu s: Final Speci men Sourc e: Urine Speci men Quali ty: Adequ ate Resul t: Great er than 100,0 00 CFU/m L of Esche pino a coli E.col i ----- ----- ----- - INT KARLA AMOX/ CLAVU LANAT E I 16 AMP/S ULBAC BENJAMIN R >=32 CEFAZ ONEIL R 8 1 CEFEP MYRA S <=0.1 2 CEFTA ZIDIM E S <=1 CEFTR IAXON E S <=0.2 5 CIPRO FLOXA ALESIA S <=0.0 6 GENTA MICIN R >=16 IMIPE NEM S <=0.2 5 LEVOF LOXAC IN S <=0.1 2 MEROP ENEM S <=0.2 5 NITRO FURAN TOIN S <=16 PIP/T AZOBA CTAM S 8 TRIME THOPR IM/RINALDI LFA R >=320 S = Susce ptibl e I = Inter media te R = Resis tant NS = Not susce ptibl e SDD = Susce ptibl e Dose Depen dent * = Not Teste d NR = Not Repor dima NN = See Thera py Comme nts THERA PY COMME NTS Note 1: For uncom plica dima UTI cause d by E. coli, K. pneum oniae or P. mirab ilis: Cefaz oneil is susce ptibl e if KARLA <32 mcg/m L and predi cts susce ptibl e to the oral agent s cefac kellen, cefdi surjit, cefpo doxim e, cefpr ozil, cefur oxime , cepha lexin and lorac arbef . Not Available [address] [address] [place], [address], 07/20/2024 15:17:11 07/19/19 25 07/20/2024 SURES WAB(R ) ADVAN HORTENSIA VAGIN ITIS PLUS, TMA sureswab(R) adv bacterial vaginosis (bv), tma NEGATI VE negati ve normal Not Available [address] [address] [place], [address], 07/20/2024 15:17:11 07/19/19 25 07/20/2024 SURES WAB(R ) ADVAN HORTENSIA VAGIN ITIS PLUS, TMA austin species NOT DETECT ED not detect ed normal Not Available [facility] [address] [address] [place], [address], 07/20/2024 15:17:11 07/19/19 25 07/20/2024 SURES WAB(R ) ADVAN HORTENSIA VAGIN ITIS PLUS, TMA austin glabrata NOT DETECT ED not detect ed normal [place] da speci es C. albic ans, C. tropi calis , C. parap selwyn is, and/o r C. mir tam is can be detec dima, but not diffe renti ated, in the [place] da spp. resul t. Not Available [facility] [address], [address], 07/20/2024 15:17:11 07/19/19 25 07/20/2024 SURES WAB(R ) ADVAN HORTENSIA VAGIN ITIS PLUS, TMA trichomonas vaginalis (TV), tma NOT DETECT ED not detect ed normal Not Available [facility] [address], [address], 07/20/2024 15:17:11 07/19/19 25 07/20/2024 SURES WAB(R ) ADVAN HORTENSIA VAGIN ITIS PLUS, TMA chlamydia trachomatis RNA, tma, urogenital NOT DETECT ED not detect ed normal Not Available [facility] [address], [address], 07/20/2024 15:17:11 07/19/19 25 07/20/2024 SURES WAB(R ) ADVAN HORTENSIA VAGIN ITIS PLUS, TMA neisseria gonorrhoeae RNA, tma, urogenital NOT DETECT ED not detect ed normal For addit ional maria dolores orozco refer to https ://ed ati on.qu wilfredoAzuro. Soccer Manager/f aq/FA Q154 (This link is being provi ded for ck brady/ ila wylie purpjono ses only. ) Not Available [facility] [address], [address], 07/20/2024 15:17:11 07/19/19 25 07/18/2024 urina lysis , dipst ick Leukocytes Negati ve Not Available [facility] [address], [address], 07/18/2024 13:47:28 07/19/19 25 07/18/2024 urina lysis , dipst ick Nitrite negati ve Not Available [facility] [address], [place], [address], 07/18/2024 13:47:28 07/19/1907/18/2024 urina lysis , dipst ick Urobilinogen .2 Not Available [facility] [address], [place], [address], 07/18/2024 13:47:28 07/19/1907/18/2024 urina lysis , dipst ick Protein Trace Not Available [facility] [address], [place], [address], 07/18/2024 13:47:28 07/19/1907/18/2024 urina lysis , dipst ick pH 8.0 Not Available [facility] [address], [place], [address], 07/18/2024 13:47:28 07/19/1907/18/2024 urina lysis , dipst ick Blood Modera te Not Available [facility] [address], [place], [address], 07/18/2024 13:47:28 07/19/1907/18/2024 urina lysis , dipst ick Specific [place] 1.010 Not Available [facility] [address], [place], [address], 07/18/2024 13:47:28 07/19/1907/18/2024 urina lysis , dipst ick Ketone Negati ve Not Available [facility] [address], [place], [address], 07/18/2024 13:47:28 07/19/19 25 07/18/2024 urina lysis , dipst ick Bilirubin Negati ve Not Available [facility] [address], [place], [address], 07/18/2024 13:47:28 07/19/19 25 07/18/2024 urina lysis , dipst ick Glucose Negati ve Not Available [facility] [address], [place], [address], 07/18/2024 13:47:28 07/19/19 25 07/18/2024 urina lysis , dipst ick Appearance Cloudy Not Available [facility] [address], [place], [address], 07/18/2024 13:47:28 07/19/19 25 07/18/2024 urina lysis , dipst ick Color Yellow Not Available [facility] [address], [place], [address], 07/18/2024 13:47:28 05/17/19 25 05/15/2024 US, trans vagin al No observ ation record ed. [email or web address] [address], [place], [address], 05/16/2024 10:30:20 05/30/19 25 05/29/2024 US, obste tric, trans vagin al No observ ation record ed. [email or web address] [address], [place], [address], 06/05/2024 23:37:21 Result Notes None recorded. Problems [...] : NO ProblemS tatus: Resolve Not Available [facility] 2 20:44:50 Hypertro phy of clitoris 23200326 Completed 202010/15/2020 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 ; Progress : Stable Added By: Charity Villalobos Add to Current Problems : NO ProblemS tatus: Resolve Not Available [facility] 2 20:44:52 Clinical finding Completed 202010/15/2020 state, incident al; Progress : Stable Added By: Bala Grant Add to Current Problems : NO ProblemS tatus: Resolve Not Available [facility] 2 14:41:03 Gestatio n period, 17 weeks 41126123 Completed 202008/06/2020 17 weeks gestatio n of pregnanc y; Progress : Stable Added By: Cecilia Anne Add to Current Problems : NO ProblemS tatus: Resolve Not Available [facility] 2 20:44:50 Pregnanc y, childbir th and puerperi um finding Completed 202006/18/2020 Encounte r for supervis ion of normal first pregnanc y, first trimeste r; Progress : Stable Added By: Cecilia Anne Add to Current Problems : NO ProblemS tatus: Resolve Not Available [facility] 2 20:44:51 Syphilis test finding [id number] Completed 202008/06/2020 Encounte r for screenin g for infectio ns with a predomin antly sexual mode of transmis mp; Progress : Stable Added By: Mariely Shaffer Add to Current Problems : NO ProblemS tatus: Resolve Not Available [facility] 2 20:44:[address] Concept Completed 202010/15/2020 Decrease d movement s, third trimeste r, fetus 1; Progress : Stable Added By: Lindy Oropeza Add to Current Problems : NO ProblemS tatus: Resolve Not Available [facility] 2 20:44:49 Gestatio n period, 27 weeks 18673066 Completed 202010/15/2020 27 weeks gestatio n of pregnanc y; Progress : Stable Added By: Charity Villalobos Add to Current Problems : NO ProblemS tatus: Resolve Not Available [facility] 2 20:44:48 Gestatio n period, 24 weeks 902986503 Completed 202010/15/2020 24 weeks gestatio n of pregnanc y; Progress : Stable Added By: Paige Rogers Add to Current Problems : NO ProblemS tatus: Resolve Not Available [facility] 2 14:41:04 Sampling of vagina for Papanico laou smear Completed 202006/18/2020 Encounte r for gynecolo gical examinat ion (general ) (routine ) without abnormal findings ; Progress : Stable Added By: Cecilia Anne Add to Current Problems : NO ProblemS tatus: Resolve Not Available [facility] 2 20:44:51 Disorder of upper respirat ory system 059230011 Completed 202010/15/2020 Acute upper respirat ory infectio n, unspecif ied; Progress : Stable Added By: Bala Grant Add to Current Problems : NO ProblemS tatus: Resolve Not Available [facility] 2 14:41:03 Gestatio n period, 28 weeks 78177431 Completed 202010/15/2020 28 weeks gestatio n of pregnanc y; Progress : Stable Added By: Leona Tavares Add to Current Problems : NO ProblemS tatus: Resolve Not Available [facility] 2 20:44:52 Gestatio n period, 20 weeks 62741402 Completed 202008/06/2020 20 weeks gestatio n of pregnanc y; Progress : Stable Added By: Griselda Daly Add to Current Problems : NO ProblemS tatus: Resolve Not Available [facility] 2 20:44:49 Gestatio n period, 8 weeks 27196452 Completed 202006/18/2020 8 weeks gestatio n of pregnanc y; Progress : Stable Added By: Cecilia Anne Add to Current Problems : NO ProblemS tatus: Resolve Not Available [facility] 2 20:44:48 Gestatio n period, 32 weeks 2351611 Completed 202010/15/2020 32 weeks gestatio n of pregnanc y; Progress : Stable Added By: Mattie Plasencia Add to Current Problems : NO ProblemS tatus: Resolve Not Available [facility]:[address] Concept Completed 202010/15/2020 Decrease d movement s, third trimeste r, not applicab le or unspecif ied; Progress : Stable Added By: Eduardo Rios Add to Current Problems : NO ProblemS tatus: Resolve Not Available [facility] 2 20:44:47 Gestatio n period, 30 weeks 40520050 Completed 202010/15/2020 30 weeks gestatio n of pregnanc y; Progress : Stable Added By: Leona Tavares Add to Current Problems : NO ProblemS tatus: Resolve Not Available [facility] 2 20:44:48 Antenata l screenin g for malforma tion Completed 202008/06/2020 Encounte r for antenata l screenin g for malforma tions; Progress : Stable Added By: Griselda Daly Add to Current Problems : NO ProblemS tatus: Resolve Not Available [facility] 2 20:44:47 Screenin g for malignan t neoplasm of cervix Completed 202006/18/2020 Encounte r for screenin g for malignan t neoplasm of cervix; Progress : Stable Added By: Cecilia Anne Add to Current Problems : NO ProblemS tatus: Resolve Not Available [facility] 2 20:44:50 Fatigue 90754172 Completed Shayy echols, [facility] 3 15:18:55 Hemorrho ids 32550050 Completed Shayy Ackerman null, [facility] 3 15:18:55 Headache 70508994 Completed Shayy Ackerman null, [employer] [facility] 3 15:18:55 heart disorder 093706159 Completed Shayy Ackerman null, [employer] [facility] [facility] 3 15:18:55 Uncertai n viabilit y of pregnanc y 266032123 Active 2024 Griselda Daly MD [address] [place] [address], [address] , [facility] [employer] IV 5 13:05:36 Pregnanc y 06981880 Active 2024 MARY LOU ARIAS [address] [place] [address], [address] , [facility] [employer] IV 5 14:54:15 Past pregnanc y history of shoulder dystocia 165627761 Active 2024 MARY LOU ARIAS [address] [place] [address], [address] , [facility] [employer] IV 5 15:01:00 History of asthma 059651013 Active 2024 MARY LOU ARIAS [address] [place] [address], [address] , [facility] [employer] IV 5 15:11:25 History of chronic obstruct lee airway disease 333003879 Active 2024 MARY LOU ARIAS [address] [place] [address], [address] , [facility] [employer] IV 5 15:11:33 History of respirat ory disease 491266852 Active 2024 AVELINA uses CPAP- needs anesthes ia consult in [facility] MARY LOU Mujica [address] [place] [address], [address] , [facility] [employer] IV 5 20:44:18 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 Procedures Surgical History Date Name Laterality Status Provider Name and Address Organization Details Recorded Time 09/23/2022 Date of Last Pap Smear completed SHELDON QUINN [address] [facility], [place], [address], [facility] [employer] IV 09/23/2022 15:42:25 Imaging Results None recorded. Procedure Notes None recorded. Medical Equipment None Reported. Allergies No known drug allergies Medications Name Sig Start Date Stop Date Status Note LastModified by Organization Details LastModified Time cyclobenz aprine 10 mg tablet TAKE 1 TABLET BY MOUTH EVERY 8 HOURS 05/15 completed Not Available Not Available Not Available amoxicill in 500 mg capsule TAKE 1 CAPSULE BY MOUTH EVERY 8 HOURS FOR 7 DAYS 07/24 completed Not Available Not Available Not Available terconazo le 0.4 % vaginal cream Insert 1 applicat orful by vaginal route for 7 days. 08/01 completed Not Available Not Available Not Available Colace 100 mg capsule Take 1 capsule every day by oral route. 2024 active Not Available Not Available Not Avai lable acetamino phen 325 mg tablet 02/23 completed Not Available Not Available Not Available Vitamin B-6 25 mg tablet TAKE 1 TABLET BY MOUTH THREE TIMES A DAY 2024 active Not Available Not Available Not Avai lable nicotine 14 mg/24 hr daily transderm al patch APPLY 1 PATCH TO SKIN ONCE DAILY 06/26 completed Not Available Not Available Not Available Saline Mist 0.65 % nasal spray aerosol 1-2 sprays per nostral prn for nasal dryness 09/22 completed Not Available Not Available Not Available cetirizin e 10 mg tablet Take 1 tablet every day by oral route for 90 days. 2024 active Not Available Not Available Not Avai lable azithromy alesia 250 mg tablet TAKE 2 TABLETS BY MOUTH TODAY, THEN TAKE 1 TABLET DAILY FOR 4 DAYS 01/25 completed Not Available Not Available Not Available ibuprofen 800 mg tablet Take 1 tablet 3 times a day by oral route as needed. 09/22 completed Not Available Not Available Not Available fluconazo le 150 mg tablet TAKE 1 TABLET TODAY AND TAKE 1 TABLET IN 3 DAYS active Not Available Not Available No t Available valacyclo vir 1 gram tablet take 1 tablet (1,000 mg) by oral route 2 times per day 08/06 completed valACYcl ovir 1 gram oral tablet RxNorm: 371856 Allow Substitu tion: True Refill Denied: No Edited by: Paige Duckworth ) on 08/07/19 Stopped by: jaimie miranda(Paige [...] Available Not Available Not Available terconazo le 0.8 % vaginal cream INSERT 1 APPLICAT ORFUL VAGINALL Y EVERY DAY active Not Available Not Available No t Available clotrimaz ole 1 % vaginal cream INSERT 1 APPLICAT ORFUL VAGINALL Y AT BEDTIME FOR 7 DAYS 06/26 completed Not Available Not Available Not Available [...] Available Not Available amoxicill in 500 mg tablet Take 1 tablet every 8 hours by oral route for 7 days. 07/13 completed Not Available Not Available Not Available [...] 1 TABLET BY MOUTH TWICE A DAY active Not Available Not Available [...] benzonat ate 100 mg oral capsule RxNorm: 651061 Allow Substitu tion: True Refill Denied: No Edited by: Leona Duran ) on 09/03/19 Stopped by: kenia (Leona Tavares ) on 09/03/19 21 Not Available Not Available Not Available doxycycli ne monohydra te 100 mg capsule TAKE 1 CAPSULE BY MOUTH TWICE A DAY DIRECTED FOR 7 DAYS 01/25 completed Not Available Not Available Not Available cephalexi n 500 mg capsule TAKE 1 CAPSULE BY MOUTH TWICE A DAY active Not Available Not Available No t Available ferrous sulfate 325 mg (65 mg iron) tablet TAKE 1 TABLET BY MOUTH EVERY DAY FOR 30 DAYS active Not Available Not Available No t Available nitrofura ntoin macrocrys jani 100 mg [...] completed Not Available Not Available Not Available magnesium 250 mg tablet Take 1 tablet every day by oral route. 04/30 completed Not Available Not Available Not Available [...] DISSOLVE EVERY 6 HOURS NEEDED, FOR NAUSEA. 07/24 completed Not Available Not Available Not Available cefdinir 300 mg capsule TAKE 1 CAPSULE BY MOUTH EVERY 12 HOURS 09/22 completed Not Available Not Available Not Available fluticaso ne propionat e 50 mcg/actua tion nasal spray,robyn pension INSTILL 1 SPRAY IN EACH NOSTRIL [...] tablet TAKE 2 TABLETS BY MOUTH ONCE 06/26 completed Not Available Not Available Not Available medroxypr ogesteron e 150 mg/mL intramusc ular syringe INJECT 1 MILLILIT ER INTRAMUS CULARLY EVERY 3 MONTHS 09/22 completed Not Available Not Available Not Available nitrofura ntoin monohydra te/macroc rystals 100 mg capsule Take 1 capsule every 12 hours by oral route for 7 days. 08/03 completed Not Available Not Available Not Available [...] completed Not Available Not Available Not Available Aleks (eliu senior) 50 % topical pads Apply 1 pad as needed by topical route. 04/08 completed Not Available Not Available Not Available tranexami c acid 650 mg tablet TAKE 2 TABLETS BY MOUTH THREE TIMES DAILY X 5 DAYS 12/22 completed Not Available Not Available Not Available 28 mg iron-800 mcg tablet Take 1 tablet every day by oral route for 90 days. 2024 active Not Available Not Available Not Avai lable M- Plus 27 mg iron-1 mg tablet TAKE 1 TABLET BY MOUTH EVERY DAY active Not Available Not Available No t Available ID NOW COVID-19 Test Kit TEST DIRECTED TODAY 01/07 completed Not Available Not Available Not Available COVID-19 test specimen collectio n TEST DIRECTED 01/07 completed Not Available Not Available Not Available Vitals Date Recorded Body height Body mass index (BMI) Body weight Systolic And Diastolic Provider Name and Address Organization Details Last Updated DateTime 05/15/2024 162.56 cm 23.5 kg/m2 36441.15 g 120/84 mm[Hg] Vandana Beatty [facility] [employer] [facility] 05/15/2024 16:17:25 Date Recorded Body height Body mass index (BMI) Body weight Systolic And Diastolic Provider Name and Address Organization Details Last Updated DateTime 05/29/2024 162.56 cm 23 kg/m2 28344.38 g 102/62 mm[Hg] Karla Beltran [facility] [employer] [facility] 05/29/2024 15:11:18 Date Recorded Body height Body mass index (BMI) Body weight Systolic And Diastolic Provider Name and Address Organization Details Last Updated DateTime 06/26/2024 162.56 cm 22.5 kg/m2 58338.6 g 120/62 mm[Hg] Vandana Fernandezoumarlakisha [facility] [employer] IV 06/26/2024 14:41:39 Date Recorded Body height Body mass index (BMI) Body weight Systolic And Diastolic Provider Name and Address Organization Details Last Updated DateTime 07/18/2024 162.56 cm 22.8 kg/m2 02244.07 g 120/60 mm[Hg] Sumaya Paz [facility] [employer] IV 07/18/2024 13:57:04 Date Recorded Body height Body weight Systolic And Diastolic Provider Name and Address Organization Details Last Updated DateTime 07/24/2024 162.56 cm 45359.2221 58 g 112/60 mm[Hg] Skyla Schilling [facility] [employer] IV 07/24/2024 14:36:37 Social History Question Answer Notes LastModified by Organizat ion Details LastModified Time Tobacco Smoking Status Current Every Day Smoker Maria Guadalupe echols, [facility] [employer] IV 01/07/2021 15:20:09 If You Are , [...] Prior Stopped A Couple Of Yrs Ago [email or web address] Information not available 05/29/2024 What Is The Highest Grade Or Level Of School You Have Completed Or The Highest Degree You Have Received? [id number] [email or web address] Information not available 02/23/2023 How Many Children Do You Have? 2 Information not available 09/23/2022 What Is Your Relationship Status? Single Information not available 01/07/2021 Are You Sexually Active? Yes Information not available 01/07/2021 At What Age Did You Start Smoking Tobacco? 17 [email or web address] Information not available 05/29/2024 How Much Tobacco Do You Smoke? 1 PPW Information not available 01/07/2021 How Many Years Have You Smoked Tobacco? 6 [email or web address] Information not available 05/29/2024 Have You Used IV Drugs? No Information not available 04/30/2022 Sex: Female Functional Status Question Answer Note LastModified by Organizat ion Details LastModified Time Do you use any illicit or recreational drugs? No [email or web address] Information not available 05/29/2024 Do you or have you ever used any other forms of tobacco or nicotine? No Information not available 04/30/2022 What is your level of alcohol consumption? None Information not available 01/07/2021 Are you currently employed? No [email or web address] Information not available 02/23/2023 What is your [...] Colon Cancer N Cytomegalovirus N Hyperthyroidism N Herpes (HSV) N Breast Cancer N Blood Transfusion N MRSA N Lung Cancer N Hypothyroidism N Depression N Incontinence N Panic Attacks N Neurological Disorder N Deep Vein Thrombosis N Anxiety Disorder N Autoimmune disease N Arthritis N Tuberculosis/Positive PPD N Shingles N Polycystic Ovarian Syndrome N Cervical Cancer N Chlamydia N Hematuria N Stroke N Varicosities N Crohn's Disease N Seasonal allergies N Alzheimer's/Dementia N COPD/Emphysema Y HPV/Genital Warts N Endometriosis N IBS (Irritable [...] Age at Menarche 12 Obstetrics History GPAL:G 3 P 2 0 0 2 Type Value Full Term 2 Living 2 Total 3 Past Encounters Encounter ID Performer Location Encounter Start Date Encounter Closed Date Diagnosis/Indication Diagnosis SNOMED-CT Code Diagnosis ICD10 Code Diagnosis [facility] [id number] [facility] [address] [place] [address] 01/07/2021 15:10:04 01/07/2021 15:35:31 state 67793000 Z39.[address], formula feeding Acute vaginitis 99299654 N76.0 Reviewed vulvar care guidelines and safe sex practices [id number] Meena elias, [facility] [address] [place] [address] 11/19/2021 11:29:11 11/19/2021 15:59:41 Missed period 81547555 N92.5 LMP 09/23/21US 11/19 [id number] interval preg last baby 11/22/20 uncomplica dima Nausea 824094592 R11.0 [id number] Nirali Sellers MD [facility] [address] [place] [address] 01/06/2022 15:30:40 01/06/2022 22:13:42 Routine care 558399856 Z34.01 Z34.81 O09.511 O09.521 new ob labs drawn today. Discussed NIPT. 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, molecular genetics 8516154 Z14.8 [id number] Meena BaezaAdriana eilas, [facility] [address] [place] [address] 02/12/2022 12:08:07 02/18/2022 14:58:39 [id number] Sofia Patrick Noris, [facility] h [address] [place] [address] 03/18/2022 10:15:56 03/18/2022 11:26:29 Gestation period, 25 weeks 91506915 Z3A.25 Routine an tenatal care 788917781 Z34.92 Screening for disorder 658295598 Z11.3 N89.9 Headache 54943369 R51.9 External hemorrhoids 239 25433 K62.5 Malaise and fatigue 2717 63655 R53.83 [id number] LURDES ANNA, [facility] [address] [place] [address] 04/08/2022 14:33:00 04/08/2022 16:18:12 Routine care 053061370 Z34.03 Z34.83 O09.513 O09.523 Gestation period, 28 weeks 50615586 Z3A.28 Increased nausea and vomiting 20852211 R11.2 Low back p ain in 9201823841 106 O26.893 [id number] Hamida Morales, [facility] h [address] [place] [address] 04/23/2022 13:11:59 04/23/2022 22:21:22 Normal in multigravida 3766097466 28203 Z34.83 Gestation period, 30 weeks 93703276 Z3A.30 labor precaution s given. FM counts discussed. F/u in L&D if experienci ng decreased movement, leaking fluid, 4 or more contractio ns in 1 hour not relieved by rest and fluids, or regular uterine contractio ns increasing in frequency and/or intensity. Reduced fe jani movement 279473691 O36.8199 Modified BPP - NST w/PADMINI [id number] Hamida Morales CNM [address] [address] 04/30/2022 17:19:10 05/01/2022 14:25:25 Supervision of high risk for multigravida done 7473937550 9109 O09.93 Vaginal irritation 91360 6004 N89.8 Gestation period, 31 weeks 61860882 Z3A.31 labor precaution s given. FM counts discussed. F/u in L&D if experienci ng decreased movement, leaking fluid, 4 or more contractio ns in 1 hour not relieved by rest and fluids, or regular uterine contractio ns increasing in frequency and/or intensity. [id number] HUA BLOOM MD [address] [address] 05/07/2022 15:09:36 05/08/2022 14:04:28 Gestation period, 32 weeks 2981211 Z3A.32 High risk 4720 0007 O09.73 Abnormalit y of heart 610928694 O36.8999 [id number] Nirali Sellers MD [address] [address] 05/12/2022 11:02:08 05/12/2022 19:35:16 Normal in multigravida 4907250339 24377 Z34.83 discussed delivery plans. She has appt tomorrow with peds cardiology - most likely will deliver at [facility] due to avail of more advanced services for baby Gestation period, 32 weeks 6421436 Z3A.32 [id number] MARY LOU QUINN-RUY [address] [address] 09/23/2022 14:28:49 09/24/2022 12:59:52 Gynecologic examination 28368361 Z01.419 Screening for malignant neoplasm of cervix 893331291 Z12.4 Contracept ion education 757681922 Z30.09 Contracept lee counseling : Discussed options including OCPs, NuvaRing, Nexplanon, hormonal and copper IUDs. Discussed risks, efficacy, noncontrac eptive benefits, and side effects of each option, including risk of VTE with hormonal contracept ion and uterine perforatio n, expulsion, infection with IUD. Recieved first shot of Depo in August. Pt has had brown discharge since then. Edcuation given. Increased frequency of urination 686115490 R35.0 Constipation 02270307 K5 9.00 Pt reports pelvic pain with constipati on. Education given. [id number] MAHNAZ HENNESSY [facility] h [address] [place] [address] 01/25/2023 15:40:40 01/26/2023 10:37:11 Abnormal uterine bleeding 3305626924 9100 N93.9 Pt was on depo and just got off of it. would like to restart. management 278 508391 Z39.1 Dysuria 23545828 R30.0 Initiation of depot contraception done 2577643116 82227 Z30.013 Pt comes in for Initiation of [...] Depo injections . Contracept ion care education 879659314 Z30.09 Contracept lee counseling : Discussed options including OCPs, NuvaRing, Nexplanon, hormonal and copper IUDs. Discussed risks, efficacy, noncontrac eptive benefits, and side effects of each option, including risk of VTE with hormonal contracept ion and uterine perforatio n, expulsion, infection with IUD. [id number] SAPNA RODAS [facility] [address] [place] [address] 02/23/2023 14:08:03 02/24/2023 11:22:13 Vaginal discharge 617392679 N89.8 N76.0 Pt educated on exam findings, and discussed POC. Vaginal cx collected and sent. Rx for Flagyl and Diflucan sent. Pt advised to avoid fragrant soaps/laun dry detergents , use of baking soda soaks, having partner change soaps, etc. Further POC pending lab result review. Abnormal u terine bleeding [id number] 9100 N93.9 Pt comes in with AUB. [...] US was normal. Contracept ion: None POCSure BriandaH Alma elias forty five minutes spent with patient in consultati on (>50% face-to-fa ce). Patient labs and notes were reviewed. Patient questions were answered. Additional patient care was coordinate d. Discharge from nipple 54 752440 N64.52 -Discussed with patient hormones, or sexual [...] prolactin in your blood. POC:Prolac tin level [id number] MARY LOU QUINN-RUY [facility] [address] [place] [address] 03/16/2023 13:59:55 03/17/2023 13:24:56 Menorrhagia 314793241 N92.0 [id number] DARNELL TRAMMELL NP [address] [address] 09/23/2023 14:41:38 09/23/2023 17:14:01 Increased frequency of urination 972719875 R35.0 Patient reports frequency and bleeding. Patient unsure if bleeding is from the vagina or urethra as she is have irritation at meatus. Menorrhagia 356677128 N9 2.0 Patient electing to self collect. Given instructio ns by PRODUCTION CONTROLLER to insert past shelter anamika and rotate for 30s. Patient denies questions and verbalizes understand ing. Wishes to proceed with self collection . Vulvar care guidelines and safe sex practices reviewed. TX pending results. Anemia 494212303 D64.9 [id number] DARNELL TRAMMELL NP [facility] [address] [place] [address] 11/03/2023 14:38:48 11/05/2023 13:41:16 Menorrhagia 239160571 N92.0 Discussed causes of abnormal uterine bleeding, [...] hours before Menses. Disorder o f menstruation 732094487 N92.6 Urinary symptoms 3103699 08 R39.9 Patient with reported frequent UTI. Patient with discomfort today.POCD ipstick and culture Venereal d isease screening 889683020 Z11.3 Discussed the various types of STDs, related symptoms and the potential consequenc es (including effects on fertility) of STD infections . Reviewed ways to limit exposure and prevention techniques . Recurrent urinary tract infection 048667516 N39.0 Family his tory of malignant neoplasm of genital structure 725897169 Z80.49 discussed MYRisk and talking with mother that has a history of unknown type of reporducti ve cancer. [id number] SAPNA RODAS [facility] [address] [place] [address] 12/23/2023 11:09:13 12/23/2023 14:19:37 test positive 575979966 Z32.01 Miscarriage 51226232 O03 .9 --TVUS today: homogeneou s uterus [...] answered. Additional patient care was coordinate joceline [id number] SAPNA RODAS [facility] [address] [place] [address] 05/15/2024 15:41:09 05/16/2024 15:06:31 Menstrual period late 00240880 N92.6 6888 [facility] gestationa [facility] sac, no YS [...] fullest extent concerning current health conditions . [id number] DARNELL TRAMMELL NP [facility] [address] [place] [address] 05/29/2024 14:34:03 05/29/2024 17:36:11 Uncertain viability of 338563121 O36.80X0 Pt presents today for a confirmati [...] vitamins daily---To xoplasmosi s precaution s reviewed-- -[facility] Guide; What to expect on your maternity journey-- -S/S of SAB reviewed and when to seek care RTC for 1st OB, Labs, and Physical. --BMI:23 Increased frequency of urination 615832103 R35.0 Patient reports frequency and bleeding. Patient unsure if bleeding is from the vagina or urethra as she is have irritation at meatus. Nausea and vomiting in 2853209546 O21.9 - Reviewed diet changes to reduce acid (decrease tomatoes, chocolate, citrus juice, spicy foods), sleeping with torso elevated -Recommend ation of B6 and unisom-Pat ient to contact the clinic if she requires reglan or zofran (after 12 wks) Substance abuse counseling 767402433 Z71.6 [id number] MARY LOU ARIAS [facility] [address] [place] [address] 06/26/2024 14:29:17 06/28/2024 10:37:30 Scalding pain on urination 59387201 R30.0 Dysuria that started yest, UA dip pos blood, protein- rx for Macrobid, urine culture sent screening 2437 78103 Z36.89 Vaginal irritation 37243 6004 N89.8 Gestation period, 11 weeks 31172086 Z3A.11 care status 24 8142244 Z34.81 POC -- NOB labs done today--EPD S Neg-- Accepts NIPT-- PAP Up to Date-- Pre-Pregna ncy BMI: 23-- RTC 4 weeks Guide: Given and reviewed. Toxoplasmo sis precaution s reviewed. Reviewed office visit schedule during . Reviewed Quickening and normal FHTs. Depression screening 171 720914 Z13.32 [id number] Hamida Morales CNM [facility] [address] [place] [address] 07/18/2024 13:35:32 07/18/2024 14:12:48 Urinary symptoms 177315528 R39.9 GBS bacteriuri a - pt not taking abx correctly. Will send new course and add abx as indicated by culture. Vaginal irritation 08052 6004 N89.8 Pt feels yeast infection has not completely cleared off. Gestation period, 14 weeks 30305351 Z3A.14 Advised pt to f/u immediatel y if temp>101.; abdominal pain, vaginal bleeding greater than 1 pad/hr for greater than 2 hours; vaginal bleeding with or without cramping; bleeding w/clots; cramping like a period. [id number] DARNELL TRAMMELL NP [facility] [address] [place] [address] 07/24/2024 14:12:11 07/31/2024 12:14:53 Gastroesophageal reflux disease without esophagitis 826032587 K21.9 - Reviewed diet changes to reduce acid (decrease tomatoes, chocolate, citrus juice, spicy foods), sleeping with torso elevated - Recommend taking Pepcid daily, Tums as needed Seasonal allergy 7292907 04 J30.2 Normal 0263605 2 Z34.90 Pt is here for a SHERICE appointmen t. She is taking vitamins. She has no complaints or questions. Has not felt movement yet. Denies vaginal bleeding, abdominal cramps, N/V, contractio ns, or LOF. Denies headache, vision changes, swelling of hands or face, and epigastric pain. Discussed PTL and precaution s given. There are no identifiab le risk factors for pre-term labor. Health Concerns Section Related Observation LastModified by Organization Detai ls LastModified Time None Recorded Concern Status LastModified by Organization Details LastModified Time None Recorded Advance Directives Directive None Recorded Payers Insurance Date Sequence Insurance Name Policy Number Policy Cantu Covered Member ID Cantu Member ID Guarantor Name 07/18/2024 1 [place] Davida Juan [id number] Davida Juan 05/15/2024 1 [employer] BET[place] - [place] ON OR AFTER 2020 (MEDICAID REPLACEMENT - HMO) Davida Juan [id number] Davida Juan 07/31/2024 1 [facility] (MEDICAID REPLACEMENT - HMO) Davida Juan [id number] Davida Juan Notes Date Note Type Note Provider Name and Address Organization Details Recorded Time 05/15/2024 text/html Patient presents for follow up from ER. Patient states got a positive test to have an elective termination. After having US completed patient changed her mind and went to [facility] for evaluation. That was on Wednesday. [...] suppose to get worked up for POTS. SULEMA PROCTOR, VARSITY BASEBALL COACH [address] [place], [address], [facility] [employer] IV 05/16/2024 10:25:54 05/29/2024 text/html Davida present s for viability check today. Patient had US on 05-15-2024 that could not confirm viable at that time. Patient denies any cramping or bleeding. Reports issues with nausea/vomiting. Pt.has not been taking PNV. Pt. has concerns. DARNELL TRAMMELL NP [address] [place], [address], [facility] [employer] IV 05/29/2024 17:28:24 06/26/2024 text/html [facility] OB Return VisitReported bypatient. symptoms: movement normal; no movement (consistent with gestational age); normal vaginal discharge/no ROM; no bleeding; pelvic pressure; no contractions/mild cramping only Gastrointestinal:no gastrointestinal symptoms Cardiovascular:no cardiovascular symptoms Musculoskeletal:no joint pain Neurologic:no headache; no visual changes Breast:plans to breast feed Social/psychiatric issues:no reported concerns with support system; no anxiety; no symptoms of depression Pt comes in today for a New/First OB visit. GORDON:[birth year] by LMPGestational Age: 11w 1dFHT:151 x22nd child with large foramen ovale aneurysm delivered at [facility] Medical History: Asthma, COPD and sleep apnea uses CPAPCurrent everyday smoker smoking 2 cigarettes per day - Last pap 09/25/22 NILM - History of Genital HSV: HSV 1 lesion vaginally, plan for suppression -- Medications: Taking daily PNV, not taking any other medications -- Mom/Sisters with hx of Pre-Eclampsia: MARY LOU Patel [address] [place], [address], [facility] [employer] IV 06/27/2024 22:26:29 07/18/2024 text/html Davida is here for ob problem visitpatient 14.2 weekspatient c/o uTI symptoms burning when urinate and cloudy urinepatient c/o yeast infection and bv symptoms white discharge with itchypatient c/o pain in lower part of the stomach Hamida Morales, TEVIN [address] [facility], [place], [address], [facility] [employer] IV 07/18/2024 14:12:28 07/24/2024 text/html Patient is here today for a routine OB visit. She is currently at 15.1 weeks gestation. vitamins: yes She has felt movement.Pt states she is having glucose issues.She denies any complaints of the presence of vaginal bleed, leaking fluid, abdominal cramps, nausea, vomiting, headache or visual disturbances. Pt. has no concerns. DARNELL TRAMMELL NP [address] [facility], [place], [address], [facility] [employer] IV 07/31/2024 00:26:06 OBGyn Episode Ob Episode Information Episode Created Date Number of Fetuses Patient Bloodtype Patient rh Status Prepregnancy Weight lbs Domestic Partner Domestic Partner Phone Father Name Branch Service Leader Status 01/07/20 22 1 O Positive CLOSED Fetus Data First Name Last Name Admitted to NICU Weight (g) Sex Living Outcome Pediatric Complications Fetus ID Race Codes Race Delivery Type [id number] Problems Problem Notes large foramen ovale an eurysm on US arrhythmia - Ped cardiology referral Problem Name Start Date End Date Resolution Snomed Code Not e heart disorder [id number] Headache 50311303 Fatigue 60639842 Hemorrhoids 27040940 Gordon Calculation Initial Gordon Date Initial Exam [...] Latest Days Gestation 0 07/01/19 23 0 Pre-bianca Flowsheet Flowsheet Date 01/06/2022 Brooks Score Blood Edema Fundus Height Fundus Units Glucose Ketones Leukocytes Nitrite Labor Signs Protein Cervic Dilation Cervic Effacement Cervic Station none none Type Weight in lbs Pre/Post Dialysis Refused Weight 149.665957014771 BP Diastolic BP Location Tested BP Systolic BP Type 62 134 Fetus Heart Rate Present A 150 Present Fetus Movement Comments 15 wks. Desires to have gene tic test done - will draw [place] panel. Also needs to do new OB labs - drawn today. Anatomy scan next Flowsheet Date 02/12/2022 Brooks Score Blood Edema Fundus Height Fundus Units Glucose Ketones Leukocytes Nitrite Labor Signs Protein Cervic Dilation Cervic Effacement Cervic Station none trace Type Weight in lbs Pre/Post Dialysis Refused Weight 158.316594203653 BP Diastolic BP Location Tested BP Systolic BP Type 66 110 Fetus Heart Rate Present Fetus Movement Comments Flowsheet Date 03/18/2022 Brooks Score Blood Edema Fundus Height Fundus Units Glucose Ketones Leukocytes Nitrite Labor Signs Protein Cervic Dilation Cervic Effacement Cervic Station 25 cm none neg Type Weight in lbs Pre/Post Dialysis Refused Weight 165.069982319063 BP Diastolic BP Location Tested BP Systolic BP Type 52 106 Fetus Heart Rate Present A 154 Fetus Movement A Yes Comments 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 Julio hurley complains [...] in lbs Pre/Post Dialysis Refused With clothes 169.062633066085 BP Diastolic BP Location Tested BP Systolic [...] in lbs Pre/Post Dialysis Refused With clothes 174.05897979686 BP Diastolic BP Location Tested BP Systolic [...] in lbs Pre/Post Dialysis Refused With clothes 174.95935152289 BP Diastolic BP Location Tested BP Systolic BP Type 52 108 Fetus Heart Rate Present A 146 Fetus Movement A Yes Comments Pt was referred to [facility] for c ardiac arrhythmia. Dr. Chary Peoples from [facility] spoke w/Dr Daly a few days ago regarding ultrasound findings. Davida's baby has a large foramen ovale aneurysm which can be a variant of normal, however this aneurysm is larger than normal and can cause irregular heart beat as noted w/US on 04/23. With [facility], the heart rhythm was normal for them. This patient needs two things.1. Need to decide where this patient is going to delivery. She told them at [facility] she was considering [facility].2. Refer her to Pediatric Cardiology at the place of her planned delivery.However, Davida noted at her visit that they told her baby's heart was normal. There is no report from [facility] available at the time of this visit. Additionally, Ander was seen at [facility] by cardiology and has to wear halter monitor for 2 weeks (?). I asked Davida to sign a records request so we can get cardiology report since her PCP sent the referral. She has a adult protective caseworker with her from [place] d/t her social situation. I am under the impression that Davida is not clearly understanding the current situation. I have asked her to make sure she brings any concerns to our attention immediately. Additionally, I encouraged her to make follow up appointments with MD to further discuss appropriate f/u and care delivery.Note sent to obtain M consult notes. Flowsheet Date 05/07/2022 Brooks Score Blood Edema Fundus Height Fundus Units Glucose Ketones Leukocytes Nitrite Labor Signs Protein Cervic Dilation Cervic Effacement Cervic Station 32 wks none Type Weight in lbs Pre/Post Dialysis Refused With clothes 177.286200789494 BP Diastolic BP Location Tested BP Systolic [...] Weight in lbs Pre/Post Dialysis Refused Weight 174.40813278164 BP Diastolic BP Location Tested BP Systolic [...] Domestic Partner Domestic Partner Phone Father Name Branch Service Leader Status 02/23/19 1 DELETED Gordon Calculation Initial Gordon Date Initial Exam [...] Domestic Partner Domestic Partner Phone Father Name Branch Service Leader Status 02/23/19 24 1 CLOSED Fetus Data First Name Last Name Admitted to NICU Weight (g) Sex Living Outcome Pediatric Complications Fetus ID Race Codes Race Delivery Type F Full Term [id number] Gordon Calculation Initial Gordon Date Initial Exam [...] Domestic Partner Domestic Partner Phone Father Name Branch Service Leader Status 06/27/19 25 1 O Positive OPEN Fetus Data First Name Last Name Admitted to NICU Weight (g) Sex Living Outcome Pediatric Complications Fetus ID Race Codes Race Delivery Type [id number] Problems Problem Notes 2nd child history of large f oramen ovale aneurysm - did not have surgery, defect resolved on its own per pt+GBS in urine 07-24-24. Problem Name Start Date End Date Resolution Snomed Code Not e Past history of shoulder dystocia 06/26/2024 395625331 Herpes simplex 06/26/2024 11263394 Prev ious vaginal lesion pos for HSV1 per pt, plan for suppressive therapy at 36 weeks History of asthma 06/26/2024 598522831 History of chronic obstructive airway disease 06/26/2024 557963785 History of respiratory disease 06/26/2024 537544875 AVELINA uses CPAP- needs anesthesia consult in third trimester Gordon Calculation Initial Gordon Date Initial Exam Date Initial Exam Provider Initial Ultrasound Date Last Menstrual Period Date Ultra Sound Weeks Gestation 06/26/2024 0 Eighteen To Twenty Week Gordon Update Ultra Sound Date Fundal Height At Umbil Quickening Date Ultra Sound Latest Weeks Gestation Final Gordon Confirmed By Final Gordon Confirmed Date Final Gordon Date Ultra Sound Latest Days Gestation 0 [email or web address] 06/26/2024 01/15/20 25 0 Pre-bianca Flowsheet Flowsheet Date 06/26/2024 Brooks Score Blood Edema Fundus Height Fundus Units Glucose Ketones Leukocytes Nitrite Labor Signs Protein Cervic Dilation Cervic Effacement Cervic Station none neg Type Weight in lbs Pre/Post Dialysis Refused With clothes 131.405778195512 BP Diastolic BP Location Tested BP Systolic BP Type 62 120 sitting Fetus Heart Rate Present A 169 Fetus Movement A No Comments 1st OBV- history of COPD, as thma, AVELINA uses cpapDysuria that started yest, UA dip pos blood, protein- rx for Macrobid, urine culture sentEPDS NegNOB, NIPT today.RTC 4 weeks, plan for MSAFP at next visit. Flowsheet Date 07/18/2024 Brooks Score Blood Edema Fundus Height Fundus Units Glucose Ketones Leukocytes Nitrite Labor Signs Protein Cervic Dilation Cervic Effacement Cervic Station Type Weight in lbs Pre/Post Dialysis Refused With clothes 132.78205923599 BP Diastolic BP Location Tested BP Systolic BP Type 60 120 sitting Fetus Heart Rate Present A 157 Fetus Movement Comments UTI symptoms & vaginal irrit ation/itching. F/u next routine appt Flowsheet Date 07/24/2024 Brooks Score Blood Edema Fundus Height Fundus Units Glucose Ketones Leukocytes Nitrite Labor Signs Protein Cervic Dilation Cervic Effacement Cervic Station none neg Type Weight in lbs Pre/Post Dialysis Refused With clothes 133.623616261214 BP Diastolic BP Location Tested BP Systolic BP Type 60 112 sitting Fetus Heart Rate Present A 163 Present Fetus Movement A No Comments c/o GERD and allergies pepci d and claritin rxd. resent to pharmacy. RTC at 20 wks for anatomy US. Menstrual History Last Menstrual Date Menses Monthly [...] Domestic Partner Domestic Partner Phone Father Name Branch Service Leader Status 07/19/19 25 1 CLOSED Fetus Data First Name Last Name Admitted to NICU Weight (g) Sex Living Outcome Pediatric Complications Fetus ID Race Codes Race Delivery Type F Full Term [id number] Gordon Calculation Initial Gordon Date Initial Exam [...] Complications Tubal Sterilization Discharge Date Comments 1 Discharge Information Feeding Method Contraceptive Method Maternal HG B and HCT Levels Ob Episode Information Episode Created Date Number of Fetuses Patient Bloodtype Patient rh Status Prepregnancy Weight lbs Domestic Partner Domestic Partner Phone Father Name Branch Service Leader Status 07/19/19 25 1 CLOSED Fetus Data First Name Last Name Admitted to NICU Weight (g) Sex Living Outcome Pediatric Complications Fetus ID Race Codes Race Delivery Type , Spontane ous [id number] Gordon Calculation Initial Gordon Date Initial Exam [...] Post Complications Tubal Sterilization Discharge Date Comments 4 Discharge Information Feeding Method Contraceptive Method Maternal HG B and HCT Levels
--- OUTSIDE RECORDS SUMMARY | 2024-08-15 16:00 | XMS_ITS | Clinical Summary ---
Author Organization [facility] Address [address] [place] [address] Care Team Providers Care Automotive General Sales Manager Name Role Phone Unavailable Primary Care [...] 2021 PAP SMEAR 2021 INFLUENZA VACCINE (#1) 2024 Insurance [facility] MEDICAID
[2024-08-15 16:11] VITALS: BP 118/66; PULSE 105; RESP 18; TEMP 36.4; O2SAT 99
--- OUTSIDE RECORDS SUMMARY | 2024-08-15 17:51 | XMS_ITS | Referral Summary ---
Author Organization [facility] Address [address] [place] [address] Care Team Providers Care Cpr Instructor Name Role Phone Zak Arauz MD Primary [...] # Disposition: Follow up task sent to [facility] scheduling pool. Desires discharge home today. [...] When she was seen in the [facility] there was concern for a dropped beats and a arrhythmia and she was referred to MFM. A arrhythmia was also heard in her primary OB office. She was scanned by Marian [facility] (care everywhere) which did not note [...] risk , antepa rtum 05/12/2022 Overview (06/23/2022): [facility] RN: Mariah Rodriguez - [phone] [x] Full [facility] Care; [x] Blue Team Referring Provider: [facility] - Hamida Morales [x] Dating Criteria: [...] Valentin [x] Method of feeding: breast [x] Circulating Nurse: [x] PP Depression Discussed: plan reviewed and [...] often do you attend chur ch or jewish services? More than 4 times per year 06/30/2022 Do you belong to any clubs o r organizations such as methodist groups, unions, fraternal or athletic groups, or [...] a group home (including now)? 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 GONORRHOEAE/C. TRACHOMATIS AMPLIFICATION STAT 02/05/2023 10:21 AM GAS OPERATION MANAGER from Last 3 Months or Most Recently Relevant to Health Maintenance Results * N. gonorrhoeae/C. trachomatis Amplification Urine (02/05/2023 10:21 AM GAS OPERATION MANAGER) C. trachomatis Not Detected Not Detected DEBBIE ARREOLA Comment:Testing performed by : [facility], [address] [place] [address]., [address] N. gonorrhoeae Not Detected Not Detected DEBBIE ARREOLA Comment: Interpretive Data This assay detects Chlamydia trachomatis and Neisseria gonorrhoeae by nucleic acid amplification testing (NAAT). This assay has been cleared by the [place] Food and Drug administration. The performance characteristics of this test have been verified by the [facility]. The performance characteristics of this test have not been evaluated in individuals less than 14 years of age. Current Interpretive Data last revised 2022. Testing performed by: [facility], [address] [place] [address], [place]., [address] Urine (None) 02/05/2023 10:2 1 AM GAS OPERATION MANAGER 02/05/2023 10:30 AM GAS OPERATION MANAGER us Ana [facility] MICROBIOLOGY - GENERAL ORDER RANDY Final Result CERNER [address] [place] [address] from Last 3 Months or Most Recently Relevant to Health Maintenance Insurance [employer] [facility] Member Subscriber Plan / Payer (Ef fective 2020-Present) Name:Davida Juan Relation to Subscriber:Self Name:Davida Juan Payer ID:1 (NAIC) Group ID:Not on file Type:MEDICAID RISK OTHER Address: [facility] [id number] [place] [id number] [employer] [facility] [employer] [facility] Advance Directives For more information, please contact: [phone] * Full Code (Latest Code Status on File) Date Activated Date Inactivated Comments 06/30/2022 12:39 AM 07/01/2022 8:58 PM * Full Code Date Activated Date Inactivated Comments 06/28/2022 9:29 PM 06/30/2022 12:39 AM Full CPR in case of cardiopulmonary arrest Care Teams Cpr Instructor Relationship Specialty [place] [address] [place] [address] PCP - General Internal Medicine 03/16/22
--- OUTSIDE RECORDS SUMMARY | 2024-08-15 17:51 | XMS_ITS | Clinical Summary ---
Author Organization [facility] Address [address] [place] [address] Care Team Providers Care Tin Pot Operator Name Role Phone Unavailable Primary Care [...] SMEAR 2021 INFLUENZA VACCINE (#1) 2024 Insurance [facility] MEDICAID
--- OUTSIDE RECORDS SUMMARY | 2024-08-15 17:51 | XMS_ITS | Clinical Summary ---
Author Organization [facility] at the Medical Office Building Address [address] [place] [id number] Care Team Providers Care Charge Machine Operator Name Role Phone Zak Arauz MD [...] # Disposition: Follow up task sent to [facility] scheduling pool. Desires discharge home today. [...] (05/14/2022): When she was seen in the [facility] there was concern for a dropped beats and a arrhythmia and she was referred to MFM. A arrhythmia was also heard in her primary OB office. She was scanned by [facility] (care everywhere) which did not note [...] risk , antepa rtum 05/12/2022 Overview (06/23/2022): [facility] RN: Mariah Rodriguez - [phone] [x] Full [facility] Care; [x] Blue Team Referring Provider: [facility] - Hamida Morales [x] Dating Criteria: [...] Valentin [x] Method of feeding: breast [x] Book Retailer: [x] PP Depression Discussed: plan reviewed and [...] often do you attend chur ch or sikh services? More than 4 times per year 06/30/2022 Do you belong to any clubs o r organizations such as congregation groups, unions, fraternal or athletic groups, or [...] place to sleep or slept in a fdc (including now)? No 06/30/2022 Warwick Depression Scale Answer Date Recorded Warwick Depression Scale Total 3 09/03/2022 The thought [...] on file Legal Sex Female 2:54 PM AUDIO VISUAL PRODUCTION SPECIALIST Gender Identity Not on file Sexual [...] Epidur al N Livin g Complications:None Delivery Location:[facility] 2022 Term 39w 6d 21h 40m 21h 21m/0h 12m/0h 07m 4.29 kg (9 lb 7.3 oz) F Vagina l Combin ed Spinal /Epidu ral N Livin g 3 [address] ,[address] NELA Lugo , Carson Lauren MD Complications:Shoulder Dysto per Delivery Location:[facility] ([facility]LD) Last Filed Vital Signs Vital [...] GONORRHOEAE/C. TRACHOMATIS AMPLIFICATION STAT 02/05/2023 10:21 AM AUDIO VISUAL PRODUCTION SPECIALIST from Last 3 Months or Most Recently Relevant to Health Maintenance Results * N. gonorrhoeae/C. trachomatis Amplification Urine (02/05/2023 10:21 AM AUDIO VISUAL PRODUCTION SPECIALIST) C. trachomatis Not Detected Not Detected DEBBIE ARREOLA Comment:Testing performed by : [facility], [address] [place] [address]., [id number] N. gonorrhoeae Not Detected Not Detected DEBBIE Comment: Interpretive Data This assay detects Chlamydia trachomatis and Neisseria gonorrhoeae by nucleic acid amplification testing (NAAT). This assay has been cleared by the [place] Food and Drug administration. The performance characteristics of this test have been verified by the [facility]. The performance characteristics of this test have not been evaluated in individuals less than 14 years of age. Current Interpretive Data last revised 2022. Testing performed by: [facility], [address] [place] [address]., [id number] Urine (None) 02/05/2023 10:2 1 AM AUDIO VISUAL PRODUCTION SPECIALIST 02/05/2023 10:30 AM AUDIO VISUAL PRODUCTION SPECIALIST us [facility] MICROBIOLOGY - GENERAL ORDER RANDY Final Result DEBBIE [id number] [facility] Department [place] [address] from Last 3 Months or Most Recently Relevant to Health Maintenance Insurance [employer] [facility] [employer] [facility] [employer] [facility] Advance Directives For more information, please contact: [phone] * Full Code (Latest Code Status on File) Date Activated Date Inactivated Comments 06/30/2022 12:39 AM 07/01/2022 8:58 PM * Full Code Date Activated Date Inactivated Comments 06/28/2022 9:29 PM 06/30/2022 12:39 AM Full CPR in case of cardiopulmonary arrest Care Teams Charge Machine Operator Relationship Specialty [place] [address] [place] [id number] PCP - General Internal Medicine 03/16/22
--- OUTSIDE RECORDS SUMMARY | 2024-08-15 17:52 | XMS_ITS | Clinical Summary ---
Author Organization [facility] Address [address] [place] [address] Care Team Providers Care Stringed Instrument Tuner Name Role Phone Unavailable Primary Care Provider Unavailabl e Source Comments [facility],non-owned Affiliates and Associated Physician Practices is amultiple site organization consisting of ambulatory clinics and hospital sitesin [place], [place], [place] and [place]. This disclosure is being madepursuant to the Care Everywhere program and may not contain all information available regarding this patient. Last updated 17.[facility] Allergies No known active allergies Social History Tobacco Use Types Packs/Day Years Used Date Smoking Tobacco: Never Assessed Comments No Sex and Gender Information Value Date Recorded Sex Assigned at Not on file Legal Sex Female 5:40 AM FORENSIC SCIENCE EXAMINER Gender Identity Not on file Sexual Orientation [...] season) 2023 DEPRESSION SCREENING 02/09/2024 INFLUENZA VACCINE (#1) 2024 3, 01/08/2005 ZOSTER VACCINE (1 of 2) 2050 [...]
== END 2024-08-15 18:11 | disposition left against medical advice (07) ==
LOC: ANHED 17:49
PROVIDERS: PCP Internal Medicine Infectious Disease
DX: R10.31 Right lower quadrant pain (principal)
CPT/HCPCS: 99199

== ENCOUNTER 2024-08-27 15:44 | Emergency (ER) | payer OTHER, SELFPAY ==
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
--- OUTSIDE RECORDS SUMMARY | 2024-08-27 15:47 | XMS_ITS | Data Portability ---
Author Organization Referly Novel , [facility] Address [address] [place] [address] Assessment No assessment recorded. 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 Not available Not available Lab urinaly sis, dipstic k 2024 025 [email or web address] [facility] [place], [address] [place] [address], [address], 07/18/2024 14:11:47 culture , urine 2024 025 Hooja [facility], [address] [place], [address], 07/19/2024 17:54:33 unliste d lab - sureswa b(R) advance d vaginit is plus, tma 2024 025 Hooja [facility], [address] [place], [address], 07/20/2024 15:17:11 bacteri al vaginos is + vaginit is panel, vaginal 2024 025 KATHLEEN [facility], [address] [place], [address], 06/28/2024 12:37:08 urinaly sis, dipstic k 2024 025 pilar [facility], [address] [place], [address], 06/26/2024 15:19:37 culture , urine 2024 025 Hooja [facility], [address] [place], [address], 06/28/2024 22:16:41 hemoglo bin A1c, QN, blood 2024 025 [employer] [facility], [place], [address] [place] [address], [address], 06/27/2024 12:46:25 abo group + rh type, blood 2024 025 Hooja [facility], [address] [place], [address], 06/27/2024 15:58:44 CBC w/ auto diff 2024 025 [employer] [facility], [place], [address] [place] [address], [address], 06/27/2024 12:36:14 CT + NG DNA, PCR, unspeci fied specime n 2024 025 [employer], [address] [place] [address], [address], 06/28/2024 13:59:08 drug of abuse panel, urine 2024 025 [employer], [address] [place] [address], [address], 06/28/2024 11:40:27 obstetr ic screen + HIV, serum or blood 2024 025 [employer], [address] [place] [address], [address], 06/27/2024 14:55:08 measles igg Ab, serum 2024 025 Hooja [facility], [address] [place], [address], 06/27/2024 15:58:43 varicel la-zost er igg Ab screen, serum 2024 025 Hooja [facility], [address] [place], [address], 06/27/2024 15:58:42 antibod y screen, serum or plasma 2024 025 Hooja [facility], [address] [place], [address], 06/27/2024 15:58:44 urinaly sis, dipstic k 2024 025 [email or web address] [facility], [address] [place], [address], 05/29/2024 15:36:22 culture , urine 2024 025 Hooja [facility], [address] [place], [address], 05/30/2024 22:29:40 Referral None recorde d. Procedures None recorde d. Surgeries None recorde d. Imaging US, obstetr ic, transva ginal 2024 025 KATHLEEN Not available 05/29/2024 19:21:35 Medication Orders cetiriz ine 10 mg tablet 2024 025 [facility] #[id number], [address], [place], [address], 07/24/2024 15:03:48 famotid ine 20 mg tablet 2024 025 [facility] #[id number], [address] [place], [address], 08/17/2024 16:33:16 M-Bianca Plus 27 mg iron-1 mg tablet 2024 025 [id number], [address] [place], [address], 08/17/2024 16:33:46 amoxici llin 500 mg capsule 2024 025 [id number], [address] [place], [address], 07/24/2024 14:33:09 tercona zole 0.4 % vaginal cream 2024 025 [id number], [address] [place], [address], 08/01/2024 05:01:42 Macrobi d 100 mg capsule 2024 025 [id number], [address] [place], [address], 08/03/2024 05:01:44 nicotin e 14 mg/24 hr daily transde rmal patch 2024 025 [id number], [address] [place], [address], 06/26/2024 14:43:16 pyridox ine (vitami n B6) 25 mg tablet 2024 025 [email or web address] [facility]acy #[id number], [address] [place], [address], 06/27/2024 18:15:32 Unisom (doxyla mine) 25 mg tablet 2024 025 [id number], [address] [place], [address], 05/29/2024 15:36:24 Prenata l 28 mg iron-80 0 mcg tablet 2024 025 [facility] #[id number], [address], [place], [address], 05/29/2024 16:29:59 Patient TargetsNo targets recorded. Patient [...] Immun ity Scree n, ACIF. Not Available [facility] [address] [place], [address], 06/27/2024 15:58:42 06/28/1906/27/2024 MEASL ES AB (IGG) , IMMUN E [...] es virus . For addit ional infor ama jansen refer to http: //critical access hospitalcolten n.[place] stDia gnost ics.c om/fa q/FAQ 162 (This link is being provi ded for infor mindy lemus/ educa eric l purpo ses only. ) Not Available [employer] [address] [place], [address], 06/27/2024 15:58:43 06/28/1906/27/2024 ANTIB JAJA SCREE N, RBC W/REF L [...] alloi mmuni zed pregn love. Not Available [employer] [address] [place], [address], 06/27/2024 15:58:44 06/28/1906/27/2024 ABO GROUP AND RH TYPE ABO group O Not Available [employer] [address], [address], 06/27/2024 15:58:44 06/28/19 25 06/27/2024 ABO GROUP AND RH TYPE Rh type RH(D) POSITI VE For addit ional infor ama jansen refer to http: //[facility] mary burnette ics.c om/fa q/FAQ 111 (This link is being provi ded for infor mindy lemus/ educa eric l purpo ses only. ) NO COLLE CTION DATE RECEI SHAWN. WE HAVE USED THE DATE THE SPECI MEN WAS RECEI SHAWN BY THIS LABOR ATORY THE COLLE CTION DATE. IF THIS IS INCOR RECT, PLEYAZAN E CONTA CT CLIEN T SERVI ALYSON. PHONE NUMBE R: [phone] Not Available [employer] [facility] [address] [place], [address], 06/27/2024 15:58:44 05/16/19 25 05/16/2024 HCG, TOTAL , QUANT HCG, total, quant 01493 mIU/m L <5 high Refer ence Range [...] has not been valid ated by the [facility] actur er of this assay . [place], [address], 05/16/2024 11:52:49 05/18/19 25 05/18/2024 HCG, TOTAL , QUANT HCG, total, quant 66107 mIU/m L <5 high Refer ence Range [...] has not been valid ated [facility] this assay . Not Available [place], [address], 05/18/2024 12:16:37 04/21/20 25 05/30/2024 CULTU RE, URINE , ROUTI NE culture, urine, routine SEE NOTE CULTU RE, URINE , ROUTI NE Micro Numbe r: [id number] Test Statu s: Final Speci men Sourc e: Urine Speci men Quali ty: Adequ ate Resul t: No Growt h Not Available [facility] [address] [place], [address], 05/30/2024 22:29:40 05/30/19 25 05/29/2024 urina lysis , dipst ick Leukocytes Negati ve Not Available [address], [address], 05/29/2024 15:31:59 05/30/19 25 05/29/2024 urina lysis , dipst ick Nitrite negati ve Not Available [address], [address], 05/29/2024 15:31:59 05/30/19 25 05/29/2024 urina lysis , dipst ick Urobilinogen .2 Not Available [address], [place], [address], 05/29/2024 15:31:59 05/30/19 25 05/29/2024 urina lysis , dipst ick Protein Negati ve Not Available [address], [address], 05/29/2024 15:31:59 05/30/19 25 05/29/2024 urina lysis , dipst ick pH 5.0 Not Available [address], [address], 05/29/2024 15:31:59 05/30/19 25 05/29/2024 urina lysis , dipst ick Blood Non-He molyze d: Trace Not Available [address], [place], [address], 05/29/2024 15:31:59 05/30/19 25 05/29/2024 urina lysis , dipst ick Specific [place] 1.030 Not Available [address], [place], [address], 05/29/2024 15:31:59 05/30/19 25 05/29/2024 urina lysis , dipst ick Ketone Negati ve Not Available [address], [place], [address], 05/29/2024 15:31:59 05/30/19 25 05/29/2024 urina lysis , dipst ick Bilirubin Negati ve Not Available [address], [place], [address], 05/29/2024 15:31:59 05/30/19 25 05/29/2024 urina lysis , dipst ick Glucose Negati ve Not Available [address], [place], [address], 05/29/2024 15:31:59 05/30/19 25 05/29/2024 urina lysis , dipst ick Appearance Clear Not Available [address], [place], [address], 05/29/2024 15:31:59 05/30/19 25 05/29/2024 urina lysis , dipst ick Color Yellow Not Available [address], [place], [address], 05/29/2024 15:31:59 06/27/19 25 06/27/2024 CBC (INCL UDES DIFF/ PLT) WBC 7.7 thous and/u L 4.0 - 9.8 normal Not Available [employer] [address] [place] [address], [address], 06/27/2024 12:36:14 06/27/19 25 06/27/2024 CBC (INCL UDES DIFF/ PLT) RBC 3.7 kimberley on/uL 3.9 - 4.9 low Not Available [employer] [address] [place] [address], [address], 06/27/2024 12:36:14 06/27/19 25 06/27/2024 CBC (INCL UDES DIFF/ PLT) hemoglobin 10.7 g/dL 11.8 - 14.8 low Not Available [employer] [address] [place] [address], [address], 06/27/2024 12:36:14 06/27/19 25 06/27/2024 CBC (INCL UDES DIFF/ PLT) hematocrit 32.3 % 35.5 - 44.0 low Not Available [employer] [address] [place] [address], [address], 06/27/2024 12:36:14 06/27/19 25 06/27/2024 CBC (INCL UDES DIFF/ PLT) MCV 87.3 fL 82.0 - 99.0 normal Not Available [employer] [address] [place] [address], [address], 06/27/2024 12:36:14 06/27/19 25 06/27/2024 CBC (INCL UDES DIFF/ PLT) MCH 28.9 pg 27.2 - 32.6 normal Not Available [employer] [address] [place] [address], [address], 06/27/2024 12:36:14 06/27/19 25 06/27/2024 CBC (INCL UDES DIFF/ PLT) MCHC 33.1 g/dL 31.5 - 35.5 normal Not Available [employer] [address] [place] [address], [address], 06/27/2024 12:36:14 06/27/19 25 06/27/2024 CBC (INCL UDES DIFF/ PLT) RDW-CV 14.0 % 11.5 - 14.5 normal Not Available [address], [address], 06/27/2024 12:36:14 06/27/19 25 06/27/2024 CBC (INCL UDES DIFF/ PLT) platelet 238 thous and/u L 140 - 350 normal Not Available [address], [address], 06/27/2024 12:36:14 06/27/19 25 06/27/2024 CBC (INCL UDES DIFF/ PLT) MPV 11.5 fL 9.3 - 12.4 normal Not Available [address], [address], 06/27/2024 12:36:14 06/27/19 25 06/27/2024 CBC (INCL UDES DIFF/ PLT) absolute neutrophil 5.05 thous and/u L 1.90 - 7.00 normal Not Available [address], [address], 06/27/2024 12:36:14 06/27/19 25 06/27/2024 CBC (INCL UDES DIFF/ PLT) absolute lymphocyte 1.94 thous and/u L 0.70 - 4.50 normal Not Available [address], [address], 06/27/2024 12:36:14 06/27/19 25 06/27/2024 CBC (INCL UDES DIFF/ PLT) absolute monocyte 0.40 thous and/u L 0.10 - 1.30 normal Not Available [address], [address], 06/27/2024 12:36:14 06/27/19 25 06/27/2024 CBC (INCL UDES DIFF/ PLT) absolute eosinophil 0.20 thous and/u L <0.70 normal Not Available [address], [address], 06/27/2024 12:36:14 06/27/19 25 06/27/2024 CBC (INCL UDES DIFF/ PLT) absolute basophil 0.06 thous and/u L <0.20 normal Not Available [address], [address], 06/27/2024 12:36:14 06/27/19 25 06/27/2024 CBC (INCL UDES DIFF/ PLT) absolute immature granulocyte 0.02 thous and/u L <0.03 normal Not Available [address], [address], 06/27/2024 12:36:14 06/27/19 25 06/27/2024 HEMOG LOBIN [...] absen ce of diabe nani Not Available [address], [address], 06/27/2024 12:46:25 06/27/19 25 06/27/2024 OB PANEL - STD BLOOD WORK hep BS Ag Non-Re active non-re active normal Not Available [address], [address], 06/27/2024 14:55:08 06/27/1906/27/2024 OB PANEL - STD BLOOD WORK hep C Ab Non-Re active non-re active normal Not Available [address], [address], 06/27/2024 14:55:08 06/27/19 25 06/27/2024 OB PANEL - STD BLOOD WORK HIV 1/2 Ag/Ab Non-Re active non-re active normal Not Available [facility] [address] [place], [address], 06/27/2024 14:55:08 06/27/19 25 06/27/2024 OB PANEL - STD BLOOD WORK syphilis Ab Non-Re active non-re active normal Not Available [address], [address], 06/27/2024 14:55:08 06/27/19 25 06/27/2024 OB PANEL [...] the Rubel la virus . Not Available [facility] [address] [place], [address], 06/27/2024 14:55:08 06/27/19 25 06/28/2024 DRUG ABUSE PANEL 7 W/CON FIRM amphetamines Negati ve negati ve normal Not Available [facility] [address] [place], [address], 06/28/2024 11:40:27 06/27/19 25 06/28/2024 DRUG ABUSE PANEL 7 W/CON FIRM barbiturates Negati ve negati ve normal Not Available [facility] [address] [place], [address], 06/28/2024 11:40:27 06/27/19 25 06/28/2024 DRUG ABUSE PANEL 7 W/CON FIRM benzodiazepi quinton Negati ve negati ve normal Not Available [facility] [address] [place], [address], 06/28/2024 11:40:27 06/27/19 25 06/28/2024 DRUG ABUSE PANEL 7 W/CON FIRM cocaine metabolites Negati ve negati ve normal Not Available [facility] [address] [place], [address], 06/28/2024 11:40:27 06/27/19 25 06/28/2024 DRUG ABUSE PANEL 7 W/CON FIRM cannabinoids Negati ve negati ve normal Not Available [facility] [address] [place], [address], 06/28/2024 11:40:27 06/27/19 25 06/28/2024 DRUG ABUSE PANEL 7 W/CON FIRM methadone Negati ve negati ve normal Not Available [facility] [address] [place], [address], 06/28/2024 11:40:27 06/27/19 25 06/28/2024 DRUG ABUSE PANEL 7 W/CON FIRM opiates Negati ve negati ve normal Not Available [facility] [address] [place], [address], 06/28/2024 11:40:27 06/27/19 25 06/28/2024 DRUG ABUSE PANEL 7 W/CON FIRM creatinine, urine 146 mg/dL 20 - 275 normal Not Available [facility] [address] [place], [address], 06/28/2024 11:40:27 06/27/19 25 06/28/2024 VAGIN ITIS PANEL bacterial vaginosis BV neg negati ve normal Not Available [facility] [address] [place], [address], 06/28/2024 12:37:08 06/27/19 25 06/28/2024 VAGIN ITIS PANEL austin species C. spp POS negati ve abnormal Not Available [facility] [address] [place], [address], 06/28/2024 12:37:08 06/27/19 25 06/28/2024 VAGIN ITIS PANEL austin glabrata C. gla neg negati ve normal Not Available [address], [address], 06/28/2024 12:37:08 06/27/19 25 06/28/2024 VAGIN ITIS PANEL trichomonas vaginalis CV/TV TRICH neg negati ve normal Not Available [address], [address], 06/28/2024 12:37:08 06/27/19 25 06/28/2024 CT/NG chlamydia trachomatis CT neg negati ve normal This repor t is inten ded for us in clini tana monit oring and manag ement of patie nts. It is not inten ded for use in medic al-le gal appli catio n. Not Available [address], [address], 06/28/2024 13:59:08 06/27/19 25 06/28/2024 CT/NG neisseria gonorrhoeae GC neg negati ve normal This repor t is inten ded for us in clini tana monit oring and manag ement of patie nts. It is not inten ded for use in medic al-le gal appli catio n. Not Available [address], [address], 06/28/2024 13:59:08 06/27/19 25 06/28/2024 CULTU RE, URINE , ROUTI NE culture, urine, routine SEE NOTE abnormal CULTU RE, URINE , ROUTI NE Micro Numbe r: [id number] Test Statu s: Final Speci men Sourc e: Urine Speci men Quali ty: Adequ ate Resul t: 10,00 0-49, 000 CFU/m L of Group B Strep tococ cus isola dima Beta- hemol ytic strep tococ ci are predi ctabl y susce ptibl e to Penic illin and other beta- lacta ms. Streeter ptibi lity testi ng not routi jackie perfo rmed. Pleas e conta ct the labor atory withi n 3 days if shamir ptibi lity testi ng is hernan ed. [...] of pregn ant women . Not Available [facility] [address] [place], [address], 06/28/2024 22:16:41 06/27/19 25 06/26/2024 urina lysis , dipst ick Leukocytes Negati ve Not Available [address], [address], 06/26/2024 14:37:41 06/27/19 25 06/26/2024 urina lysis , dipst ick Nitrite negati ve Not Available [address], [address], 06/26/2024 14:37:41 06/27/19 25 06/26/2024 urina lysis , dipst ick Urobilinogen .2 Not Available [address], [address], 06/26/2024 14:37:41 06/27/19 25 06/26/2024 urina lysis , dipst ick Protein Trace Not Available [address], [address], 06/26/2024 14:37:41 06/27/19 25 06/26/2024 urina lysis , dipst ick pH 6.5 Not Available [address], [place], [address], 06/26/2024 14:37:41 06/27/19 25 06/26/2024 urina lysis , dipst ick Blood Modera te Not Available [address], [place], [address], 06/26/2024 14:37:41 06/27/19 25 06/26/2024 urina lysis , dipst ick Specific [place] 1.010 Not Available [address], [place], [address], 06/26/2024 14:37:41 06/27/19 25 06/26/2024 urina lysis , dipst ick Ketone Modera te Not Available [address], [place], [address], 06/26/2024 14:37:41 06/27/19 25 06/26/2024 urina lysis , dipst ick Bilirubin Negati ve Not Available [address], [place], [address], 06/26/2024 14:37:41 06/27/19 25 06/26/2024 urina lysis , dipst ick Glucose Negati ve Not Available [address], [place], [address], 06/26/2024 14:37:41 06/27/19 25 06/26/2024 urina lysis , dipst ick Appearance Cloudy Not Available [address], [place], [address], 06/26/2024 14:37:41 06/27/19 25 06/26/2024 urina lysis , dipst ick Color Yellow Not Available [facility] [address], [place], [address], 06/26/2024 14:37:41 06/29/19 25 06/28/2024 CHROM OSOME S 13, 18, 21 + SEX CHROM OSOME PANKAJ SIS chromosomes 13, 18, 21 + sex chromosome analysis Negati ve normal See PDF for compl ete resul ts. Overa ll Resul t: Negat lee Negat lee for all order ed condi tions Clini tana Notes : * The resid ual risks provi ded repre [facility] that the pregn love is affec [...] loidy scree so resul t. Not Available [facility] [address], [place], [address], 07/02/2024 14:45:11 06/29/19 25 06/28/2024 CONSU LTATI ON REPOR T consultation report Please refer to attach ed PDF for Consul tation Report normal Not Available [facility] [address], [place], [address], 07/04/2024 11:15:13 06/29/19 25 06/28/2024 HARRY MENTA L PANEL (CF + SMA) fundamental panel (CF + sma) Negati ve normal See PDF for compl ete resul ts. Overa ll Resul t: Negat lee No disea se-ca using mutat ions detec dima. Not Available [facility] [address] [place], [address], 07/05/2024 13:45:04 06/29/19 25 06/28/2024 HARRY MENTA L PLUS PANEL , HARRY MENTA L PANEL fundamental plus panel, fundamental panel Negati ve normal See PDF for compl ete resul ts. Overa ll Resul t: Negat lee No disea se-ca using mutat ions detec dima. Not Available [facility] [address] [place], [address], 07/08/2024 17:16:35 07/19/19 25 07/20/2024 CULTU RE, URINE , ROUTI NE culture, urine, routine SEE NOTE abnormal CULTU RE, URINE , ROUTI NE Micro Numbe r: [id number] Test Statu s: Final Speci men [...] lexin and lorac arbef . Not Available [address] [place], [address], 07/20/2024 15:17:11 07/19/19 25 07/20/2024 SURES WAB(R ) ADVAN HORTENSIA VAGIN ITIS PLUS, TMA sureswab(R) adv bacterial vaginosis (bv), tma NEGATI VE negati ve normal Not Available [facility] [address] [place], [address], 07/20/2024 15:17:11 07/19/19 25 07/20/2024 SURES WAB(R ) ADVAN HORTENSIA VAGIN ITIS PLUS, TMA austin species NOT DETECT ED not detect ed normal Not Available [facility] [address] [place], [address], 07/20/2024 15:17:11 07/19/19 25 07/20/2024 SURES WAB(R ) ADVAN HORTENSIA VAGIN ITIS PLUS, TMA austin glabrata NOT DETECT ED not detect ed normal Farida da speci es C. albic ans, C. tropi calis , C. parap selwyn is, and/o r C. dubli niens is can be detec dima, but not diffe renti ated, in the Farida da spp. resul t. Not Available [facility] [address] [address] [place], [address], 07/20/2024 15:17:11 07/19/19 25 07/20/2024 SURES WAB(R ) ADVAN HORTENSIA VAGIN ITIS PLUS, TMA trichomonas vaginalis (TV), tma NOT DETECT ED not detect ed normal Not Available [facility] [address], [address], 07/20/2024 15:17:11 07/19/19 25 07/20/2024 SURES WAB(R ) ADVAN HORTENSIA VAGIN ITIS PLUS, TMA chlamydia trachomatis RNA, tma, urogenital NOT DETECT ED not detect ed normal Not Available [facility] [address], [address], 07/20/2024 15:17:11 07/19/19 25 07/20/2024 SURES WAB(R ) ADVAN HORTENSIA VAGIN ITIS PLUS, TMA neisseria gonorrhoeae RNA, tma, urogenital NOT DETECT ED not detect ed normal For addit ional ama orozco refer to https ://ed ucati on.[facility] wilfredoTakepin/f aq/FA Q154 (This link is being provi ded for ck brady/ ila luna only. ) Not Available [address], [address], 07/20/2024 15:17:11 07/19/19 25 07/18/2024 urina lysis , dipst ick Leukocytes Negati ve Not Available [facility] [address], [address], 07/18/2024 13:47:28 07/19/19 25 07/18/2024 urina lysis , dipst ick Nitrite negati ve Not Available [facility] [address], [address], 07/18/2024 13:47:28 06/1007/18/2024 urina lysis , dipst ick Urobilinogen .2 Not Available [facility] [address], [place], [address], 07/18/2024 13:47:28 07/19/19 25 07/18/2024 urina lysis , dipst ick Protein Trace Not Available [facility] [address], [place], [address], 07/18/2024 13:47:28 07/19/19 25 07/18/2024 urina lysis , dipst ick pH 8.0 Not Available [address], [place], [address], 07/18/2024 13:47:28 07/19/19 25 07/18/2024 urina lysis , dipst ick Blood Modera te Not Available [facility] [address], [place], [address], 07/18/2024 13:47:28 07/19/19 25 07/18/2024 urina lysis , dipst ick Specific [place] 1.010 Not Available [facility] [address], [place], [address], 07/18/2024 13:47:28 07/19/1907/18/2024 urina lysis , dipst ick Ketone Negati ve Not Available [address], [place], [address], 07/18/2024 13:47:28 07/19/19 25 07/18/2024 urina lysis , dipst ick Bilirubin Negati ve Not Available [address], [place], [address], 07/18/2024 13:47:28 07/19/19 25 07/18/2024 urina lysis , dipst ick Glucose Negati ve Not Available [facility] [place] [address] [place] [address], [place], [address], 07/18/2024 13:47:28 07/19/19 25 07/18/2024 urina lysis , dipst ick Appearance Cloudy Not Available [facility] [place] [address] [place] [address], [place], [address], 07/18/2024 13:47:28 07/19/19 25 07/18/2024 urina lysis , dipst ick Color Yellow Not Available [facility] [address], [place], [address], 07/18/2024 13:47:28 05/17/19 25 05/15/2024 US, trans vagin al No observ ation record ed. [email or web address] [address], [place], [address], 05/16/2024 10:30:20 05/30/19 25 05/29/2024 US, obste tric, trans vagin al No observ ation record ed. [email or web address] [address], [place], [address], 06/05/2024 23:37:21 Result Notes None recorded. Problems Name Problem SNOMED Code Status Onset Date Resolution Date Notes Provider Name and Address Organization Details Recorded Time Fatigue 84990658 Completed Shayy Ackerman null, [place] - [facility] 3 15:18:55 Hemorrho ids [id number] Completed [place]ay[place], [place] [facility] 3 15:18:55 Headache [id number] Completed Shayy Ackerman [place], [place] [facility] 3 15:18:55 heart disorder [id number] Completed Shayy Funeslister null, [facility] 3 15:18:55 Pregnanc y, childbir th and puerperi um finding Completed 202006/18/2020 Encounte r for supervis ion of normal first pregnanc y, first trimeste r; Progress : Stable Added By: Cecilia Anne Add to Current Problems : NO ProblemS tatus: Resolve Not Available [facility] 2 20:44:51 Sampling of vagina for Papanico laou smear Completed 202006/18/2020 Encounte r for gynecolo gical examinat ion (general ) (routine ) without abnormal findings ; Progress : Stable Added By: Cecilia Anne Add to Current Problems : NO ProblemS tatus: Resolve Not Available [facility] 2 20:44:51 Gestatio n period, 8 weeks [id number] Completed 202006/18/2020 8 weeks gestatio n of pregnanc y; Progress : Stable Added By: Cecilia Anne Add to Current Problems : NO ProblemS tatus: Resolve Not Available [facility] 2 20:44:48 Screenin g for malignan t neoplasm of cervix Completed 202006/18/2020 Encounte r for screenin g for malignan t neoplasm of cervix; Progress : Stable Added By: Cecilia Anne Add to Current Problems : NO ProblemS tatus: Resolve Not Available [facility] 2 20:44:50 Pregnanc y, childbir th and puerperi um finding Completed 202010/15/2020 Encounte r for supervis ion of normal first pregnanc y, second trimeste r; Progress : Stable Added By: Charity Villalobos Add to Current Problems : NO ProblemS tatus: Resolve Not Available [facility] 2 20:44:50 Gestatio n period, 17 weeks [id number] Completed 202008/06/2020 17 weeks gestatio n of pregnanc y; Progress : Stable Added By: Cecilia Anne Add to Current Problems : NO ProblemS tatus: Resolve Not Available [facility] 2 20:44:50 Gestatio n period, 20 weeks 01701914 Completed 202008/06/2020 20 weeks gestatio n of pregnanc y; Progress : Stable Added By: Griselda Daly Add to Current Problems : NO ProblemS tatus: Resolve Not Available [facility] 2 20:44:49 Antenata l screenin g for malforma tion Completed 202008/06/2020 Encounte r for antenata l screenin g for malforma tions; Progress : Stable Added By: Griselda Daly Add to Current Problems : NO ProblemS tatus: Resolve Not Available [facility] 2 20:44:47 Syphilis test finding [id number] Completed 202008/06/2020 Encounte r for screenin g for infectio ns with a predomin antly sexual mode of transmis mp; Progress : Stable Added By: Mariely Shaffer Add to Current Problems : NO ProblemS tatus: Resolve Not Available [facility] 2 20:44:46 Gestatio n period, 24 weeks 925397654 Completed 202010/15/2020 24 weeks gestatio n of pregnanc y; Progress : Stable Added By: Paige Rogers Add to Current Problems : NO ProblemS tatus: Resolve Not Available [facility] 2 14:41:04 Hypertro phy of clitoris 34977986 Completed 202010/15/2020 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 ; Progress : Stable Added By: Charity Villalobos Add to Current Problems : NO ProblemS tatus: Resolve Not Available [facility] 2 20:44:52 Clinical finding Completed 202010/15/2020 state, incident al; Progress : Stable Added By: Bala Grant Add to Current Problems : NO ProblemS tatus: Resolve Not Available [facility] 2 14:41:03 Disorder of upper respirat ory system 777917747 Completed 202010/15/2020 Acute upper respirat ory infectio n, unspecif ied; Progress : Stable Added By: Bala Grant Add to Current Problems : NO ProblemS tatus: Resolve Not Available [facility] 2 14:41:03 Gestatio n period, 27 weeks 57900500 Completed 202010/15/2020 27 weeks gestatio n of pregnanc y; Progress : Stable Added By: Charity Villalobos Add to Current Problems : NO ProblemS tatus: Resolve Not Available [facility] 2 20:44:[address] Concept Completed 202010/15/2020 Decrease d movement s, third trimeste r, fetus 1; Progress : Stable Added By: Lindy Oropeza Add to Current Problems : NO ProblemS tatus: Resolve Not Available [facility] 2 20:44:49 Gestatio n period, 28 weeks 32693232 Completed 202010/15/2020 28 weeks gestatio n of pregnanc y; Progress : Stable Added By: Leona Tavares Add to Current Problems : NO ProblemS tatus: Resolve Not Available [facility] 2 20:44:[address] Concept Completed 202010/15/2020 Decrease d movement s, third trimeste r, not applicab le or unspecif ied; Progress : Stable Added By: Eduardo Rios Add to Current Problems : NO ProblemS tatus: Resolve Not Available [facility] 2 20:44:47 Gestatio n period, 30 weeks 25463200 Completed 202010/15/2020 30 weeks gestatio n of pregnanc y; Progress : Stable Added By: Leona Tavares Add to Current Problems : NO ProblemS tatus: Resolve Not Available [facility] 2 20:44:48 Gestatio n period, 32 weeks 8504457 Completed 202010/15/2020 32 weeks gestatio n of pregnanc y; Progress : Stable Added By: Mattie Plasencia Add to Current Problems : NO ProblemS tatus: Resolve Not Available [facility] 2 20:44:51 Uncertai n viabilit y of pregnanc y 065230100 Active 2024 Griselda Daly MD [address] [place], [address] , [facility] 5 13:05:36 Pregnanc y 99787641 Active 2024 MARY LOU ARIAS [address] [place] [address], [address] , [facility] 5 14:54:15 Past pregnanc y history of shoulder dystocia 232325484 Active 2024 MARY LOU ARIAS [address] [place] [address], [address] , [facility] 5 15:01:00 History of asthma 231133605 Active 2024 MARY LOU ARIAS [address] [place] [address], [address] , [facility] 5 15:11:25 History of chronic obstruct lee airway disease 540806040 Active 2024 MARY LOU ARIAS [address] [place] [address], [address] , [facility] 5 15:11:33 History of respirat ory disease 384374995 Active 2024 AVELINA uses CPAP- needs anesthes ia consult in [facility] trimeste r MARY LOU ARIAS [address] [place] [address], [address] , [facility] 5 20:44:18 Herpes simplex 52012066 Active 2024 Previous vaginal lesion pos for HSV1 per pt, plan for suppress lee therapy at 36 weeks MARY LOU ARIAS [address] [place] [address], [address] , [facility] 5 22:12:13 Problem Notes None recorded. Procedures Surgical History Date Name Laterality Status Provider Name and Address Organization Details Recorded Time 09/23/2022 Date of Last Pap Smear completed MARY LOU QUINN-RUY [address] [facility], [place], [address], [facility] 09/23/2022 15:42:25 Imaging Results None recorded. Procedure [...] 1 capsule every day by oral route. 08/17 completed Not Available Not Available Not Available [...] AND TAKE 1 TABLET IN 3 DAYS 08/17 completed Not Available Not Available Not Available valacyclo vir 1 gram tablet take 1 tablet (1,000 mg) by oral route 2 times per day 08/06 completed valACYcl ovir 1 gram oral tablet RxNorm: 197863 Allow Substitu tion: True Refill Denied: No Edited by: Paige Dcukworth ) on 08/07/19 Stopped by: jaimie miranda(Paige [...] 1 APPLICAT ORFUL VAGINALL Y EVERY DAY 08/17 completed Not Available Not Available Not Available clotrimaz ole 1 % vaginal cream [...] 1 TABLET BY MOUTH TWICE A DAY 08/17 completed Not Available Not Available Not Available [...] benzonat ate 100 mg oral capsule RxNorm: 251174 Allow Substitu tion: True Refill Denied: No [...] 1 CAPSULE BY MOUTH TWICE A DAY 08/17 completed Not Available Not Available Not Available ferrous sulfate 325 mg (65 mg iron) tablet TAKE 1 TABLET BY MOUTH EVERY DAY FOR 30 DAYS 08/17 completed Not Available Not Available Not Available [...] TAKE 1 TABLET BY MOUTH EVERY DAY 08/17 completed Not Available Not Available Not Available ID NOW COVID-19 Test Kit TEST DIRECTED TODAY 01/07 completed Not Available Not Available Not Available COVID-19 test specimen collectio n TEST DIRECTED 01/07 completed Not Available Not Available Not Available Vitals Date Recorded Body height Body mass index (BMI) Body weight Systolic And Diastolic Provider Name and Address Organization Details Last Updated DateTime 05/29/2024 162.56 cm 23 kg/m2 87841.38 g 102/62 mm[Hg] Karla Beltran [facility] 05/29/2024 15:11:18 Date Recorded Body height Body mass index (BMI) Body weight Systolic And Diastolic Provider Name and Address Organization Details Last Updated DateTime 06/26/2024 162.56 cm 22.5 kg/m2 87008.6 g 120/62 mm[Hg] Vandana Hidalgo [facility] [email or web address] [facility] [facility] 06/26/2024 14:41:39 Date Recorded Body height Body mass index (BMI) Body weight Systolic And Diastolic Provider Name and Address Organization Details Last Updated DateTime 07/18/2024 162.56 cm 22.8 kg/m2 59012.07 g 120/60 mm[Hg] Sumaya Paz [facility] [employer] [facility] 07/18/2024 13:57:04 Date Recorded Body height Body weight Systolic And Diastolic Provider Name and Address Organization Details Last Updated DateTime 07/24/2024 162.56 cm 00939.2221 58 g 112/60 mm[Hg] Skyla Schilling [facility] [employer] [facility] 07/24/2024 14:36:37 Date Recorded Body height Body mass index (BMI) Body weight Systolic And Diastolic Provider Name and Address Organization Details Last Updated DateTime 08/17/2024 162.56 cm 23.1 kg/m2 93877.89 g 110/60 mm[Hg] Sumaya [facility] [employer] [facility] 08/17/2024 16:34:05 Social History Question Answer Notes LastModified by Organizat ion Details LastModified Time Tobacco Smoking Status Current Every Day Smoker Maria Guadalupe echols, [facility] 01/07/2021 15:20:09 If You Are , [...] Prior Stopped A Couple Of Yrs Ago [email or web address] Information not available 05/29/2024 What Is The Highest Grade Or Level Of School You Have Completed Or The Highest Degree You Have Received? [id number] [email or web address] Information not available 02/23/2023 How Many Children Do You Have? 2 Information not available 09/23/2022 What Is Your Relationship Status? Single Information not available 01/07/2021 Are You Sexually Active? Yes Information not available 01/07/2021 At What Age Did You Start Smoking Tobacco? 17 [email or web address] Information not available 05/29/2024 How Much Tobacco Do You Smoke? 1 PPW Information not available 01/07/2021 How Many Years Have You Smoked Tobacco? 6 [email or web address] Information not available 05/29/2024 Have You Used IV Drugs? No Information not available 04/30/2022 Sex: Female Functional Status Question Answer Note LastModified by Organizat ion Details LastModified Time Do you use any illicit or recreational drugs? No [email or web address] Information not available 05/29/2024 Do you or have you ever used any other forms of tobacco or nicotine? No Information not available 04/30/2022 What is your level of alcohol consumption? None Information not available 01/07/2021 Are you currently employed? No [email or web address] Information not available 02/23/2023 What is your [...] Colon Cancer N Cytomegalovirus N Hyperthyroidism N Breast Cancer N Herpes (HSV) N MRSA N Blood Transfusion N Lung Cancer N Depression N Hypothyroidism N Incontinence N Panic Attacks N Neurological Disorder N Deep Vein Thrombosis N Anxiety Disorder N Autoimmune disease N Arthritis N Tuberculosis/Positive PPD N Shingles N Polycystic Ovarian Syndrome N Infertility N Cervical Cancer N Hematuria N Chlamydia N Varicosities N Stroke N Crohn's Disease N Seasonal allergies N [...] N Diabetes (insulin dependent) N Seizures/Epilepsy N Breast Problems N Fibroids N Asthma Y Heart Attack N Endometrial Cancer N Lupus [...] SNOMED-CT Code Diagnosis ICD10 Code Diagnosis Note [id number] Meena elias, [facility] [address] [place] [address] 01/07/2021 15:10:04 01/07/2021 15:35:31 state 23269680 Z39.[address], formula feeding Acute vaginitis 57970215 N76.0 Reviewed vulvar care guidelines and safe sex practices [id number] Meena Claire is, [facility] [address] [place] [address] 11/19/2021 11:29:11 11/19/2021 15:59:41 Missed period 33462858 N92.5 LMP 09/23/21US 11/19 [id number] interval preg last baby 11/22/20 uncomplica dima Nausea 821447390 R11.0 [id number] Nirali Sellers MD [facility] [address] [place] [address] 01/06/2022 15:30:40 01/06/2022 22:13:42 Routine care 744123003 Z34.01 Z34.81 O09.511 O09.521 new ob labs drawn today. Discussed NIPT. anatomy scan next screening 2437 55893 Z36.0 Carrier de tection, molecular genetics 4999719 Z14.8 [id number] Meena Dakotah elias, [address] [address] 02/12/2022 12:08:07 02/18/2022 14:58:39 [id number] Sofia Hamm, [address] [address] 03/18/2022 10:15:56 03/18/2022 11:26:29 Gestation period, 25 weeks 90519487 Z3A.25 Routine an tenatal care 040631781 Z34.92 Screening for disorder 288156867 Z11.3 N89.9 Headache 26208145 R51.9 External hemorrhoids 239 59884 K62.5 Malaise and fatigue 2717 96128 R53.83 [id number] LURDES ANNA [address] [address] 04/08/2022 14:33:00 04/08/2022 16:18:12 Routine care 641885740 Z34.03 Z34.83 O09.513 O09.523 Gestation period, 28 weeks 95767861 Z3A.28 Increased nausea and vomiting 03793816 R11.2 Low back p ain in 6818266630 106 O26.426 [id number] Hamida Morales, [address] [address] 04/23/2022 13:11:59 04/23/2022 22:21:22 Normal in multigravida 4285198704 01561 Z34.83 Gestation period, 30 weeks 29967043 Z3A.30 labor precaution s given. FM counts discussed. F/u in L&D if experienci ng decreased movement, leaking fluid, 4 or more contractio ns in 1 hour not relieved by rest and fluids, or regular uterine contractio ns increasing in frequency and/or intensity. Reduced fe jani movement 309292522 O36.8199 Modified BPP - NST w/PADMINI [id number] Hamida Morales CNM [facility] [address] [place] [address] 04/30/2022 17:19:10 05/01/2022 14:25:25 Supervision of high risk for multigravida done 4240993476 9109 O09.93 Vaginal irritation 02874 6004 N89.8 Gestation period, 31 weeks 39520776 Z3A.31 labor precaution s given. FM counts discussed. F/u in L&D if experienci ng decreased movement, leaking fluid, 4 or more contractio ns in 1 hour not relieved by rest and fluids, or regular uterine contractio ns increasing in frequency and/or intensity. [id number] HUA BLOOM MD [address] [address] 05/07/2022 15:09:36 05/08/2022 14:04:28 Gestation period, 32 weeks 3646202 Z3A.32 High risk 4720 0007 O09.73 Abnormalit y of heart 817111028 O36.8999 [id number] Nirali Sellers MD [address] [address] 05/12/2022 11:02:08 05/12/2022 19:35:16 Normal in multigravida 6124050428 86848 Z34.83 discussed delivery plans. She has appt tomorrow with peds cardiology - most likely will deliver at [facility] due to avail of more advanced services for baby Gestation period, 32 weeks 8284101 Z3A.32 [id number] MAHNAZ HENNESSY [facility] [address] [place] [address] 09/23/2022 14:28:49 09/24/2022 12:59:52 Gynecologic examination 85243579 Z01.419 Screening for malignant neoplasm of cervix 121015726 Z12.4 Contracept ion education 559904567 Z30.09 Contracept lee counseling : Discussed options including OCPs, NuvaRing, Nexplanon, hormonal and copper IUDs. Discussed risks, efficacy, noncontrac eptive benefits, and side effects of each option, including risk of VTE with hormonal contracept ion and uterine perforatio n, expulsion, infection with IUD. Recieved first shot of Depo in August. Pt has had brown discharge since then. Edcuation given. Increased frequency of urination 775148253 R35.0 Constipation 51884303 K5 9.00 Pt reports pelvic pain with constipati on. Education given. [id number] [facility] [address] [place] [address] 01/25/2023 15:40:40 01/26/2023 10:37:11 Abnormal uterine bleeding 1037040969 9100 N93.9 Pt was on depo and just got off of it. would like to restart. management 278 364966 Z39.1 Dysuria 41374284 R30.0 Initiation of depot contraception done 1561043211 48156 Z30.013 Pt comes in for Initiation of [...] Depo injections . Contracept ion care education 551954735 Z30.09 Contracept lee counseling : Discussed options including OCPs, NuvaRing, Nexplanon, hormonal and copper IUDs. Discussed risks, efficacy, noncontrac eptive benefits, and side effects of each option, including risk of VTE with hormonal contracept ion and uterine perforatio n, expulsion, infection with IUD. [id number] SULEMA PROCTOR, GAUGE MAKER [facility] [address] [place] [address] 02/23/2023 14:08:03 02/24/2023 11:22:13 Vaginal discharge 539972865 N89.8 N76.0 Pt educated on exam findings, and discussed POC. Vaginal cx collected and sent. Rx for Flagyl and Diflucan sent. Pt advised to avoid fragrant soaps/laun dry detergents , use of baking soda soaks, having partner change soaps, etc. Further POC pending lab result review. Abnormal u terine bleeding 7495707128 9100 N93.9 Pt comes in with AUB. [...] was coordinate d. Discharge from nipple 54 587067 N64.52 -Discussed with patient hormones, or sexual [...] prolactin in your blood. POC:Prolac tin level [id number] MARY LOU QUINN-[address] [address] 03/16/2023 13:59:55 03/17/2023 13:24:56 Menorrhagia 673397888 N92.0 [id number] DARNELL TRAMMELL NP [address] [address] 09/23/2023 14:41:38 09/23/2023 17:14:01 Increased frequency of urination 488212538 R35.0 Patient reports frequency and bleeding. Patient unsure if bleeding is from the vagina or urethra as she is have irritation at meatus. Menorrhagia 338180953 N9 2.0 Patient electing to self collect. Given instructio ns by [employer] SUPERVISOR to insert past nursing home anamika and rotate for 30s. Patient denies questions and verbalizes understand ing. Wishes to proceed with self collection . Vulvar care guidelines and safe sex practices reviewed. TX pending results. Anemia 321915371 D64.9 [id number] DARNELL TRAMMELL NP [address] [address] 11/03/2023 14:38:48 11/05/2023 13:41:16 Menorrhagia 635103647 N92.0 Discussed causes of abnormal uterine bleeding, [...] hours before Menses. Disorder o f menstruation 522479384 N92.6 Urinary symptoms 8022672 08 R39.9 Patient with reported frequent UTI. Patient with discomfort today.POCD ipstick and culture Venereal d isease screening 669373225 Z11.3 Discussed the various types of STDs, related symptoms and the potential consequenc es (including effects on fertility) of STD infections . Reviewed ways to limit exposure and prevention techniques . Recurrent urinary tract infection 173162685 N39.0 Family his tory of malignant neoplasm of genital structure 219409861 Z80.49 discussed MYRisk and talking with mother that has a history of unknown type of reporducti ve cancer. [id number] SAPNA RODAS [address] [place] [place] [address] 12/23/2023 11:09:13 12/23/2023 14:19:37 test positive 690229443 Z32.01 Miscarriage 43719300 O03 .9 --TVUS today: homogeneou s uterus [...] answered. Additional patient care was coordinate joceline [id number] SAPNA RODAS [facility] [address] [place] [address] 05/15/2024 15:41:09 05/16/2024 15:06:31 Menstrual period late 55334785 N92.6 6888 [facility] states gestationa l sac, no YS [...] fullest extent concerning current health conditions . [id number] DARNELL TRAMMELL NP [facility] [address] [place] [address] 05/29/2024 14:34:03 05/29/2024 17:36:11 Uncertain viability of 722484390 O36.80X0 Pt presents today for a confirmati [...] vitamins daily---To xoplasmosi s precaution s reviewed-- -[facility] Guide; What to expect on your maternity journey-- -S/S of SAB reviewed and when to seek care RTC for 1st OB, Labs, and Physical. --BMI:23 Increased frequency of urination 717348674 R35.0 Patient reports frequency and bleeding. Patient unsure if bleeding is from the vagina or urethra as she is have irritation at meatus. Nausea and vomiting in 1353105382 O21.9 - Reviewed diet changes to reduce acid (decrease tomatoes, chocolate, citrus juice, spicy foods), sleeping with torso elevated -Recommend ation of B6 and unisom-Pat ient to contact the clinic if she requires reglan or zofran (after 12 wks) Substance abuse counseling 949182336 Z71.6 [id number] MARY LOU ARIAS [facility] [address] [place] [address] 06/26/2024 14:29:17 06/28/2024 10:37:30 Scalding pain on urination 37246263 R30.0 Dysuria that started yest, UA dip pos blood, protein- rx for Macrobid, urine culture sent screening 2437 25923 Z36.89 Vaginal irritation 20338 6004 N89.8 Gestation period, 11 weeks 62403585 Z3A.11 care status 24 0426239 Z34.81 POC -- NOB labs done today--EPD S Neg-- Accepts NIPT-- PAP Up to Date-- Pre-Pregna ncy BMI: 23-- RTC 4 weeks Guide: Given and reviewed. Toxoplasmo sis precaution s reviewed. Reviewed office visit schedule during . Reviewed Quickening and normal FHTs. Depression screening 171 010870 Z13.32 [id number] Hamida Morales CNM [facility] [address] [place] [address] 07/18/2024 13:35:32 07/18/2024 14:12:48 Urinary symptoms 819356344 R39.9 GBS bacteriuri a - pt not taking abx correctly. Will send new course and add abx as indicated by culture. Vaginal irritation 58633 6004 N89.8 Pt feels yeast infection has not completely cleared off. Gestation period, 14 weeks 76482880 Z3A.14 Advised pt to f/u immediatel y if temp>101.; abdominal pain, vaginal bleeding greater than 1 pad/hr for greater than 2 hours; vaginal bleeding with or without cramping; bleeding w/clots; cramping like a period. [id number] DARNELL TRAMMELL NP [facility] [address] [place] [address] 07/24/2024 14:12:11 07/31/2024 12:14:53 Gastroesophageal reflux disease without esophagitis 122121413 K21.9 - Reviewed diet changes to reduce acid (decrease tomatoes, chocolate, citrus juice, spicy foods), sleeping with torso elevated - Recommend taking Pepcid daily, Tums as needed Seasonal allergy 2966275 04 J30.2 Normal 3734643 2 Z34.90 Pt is here for a SHERICE appointmen t. She is taking vitamins. She has no complaints or questions. Has not felt movement yet. Denies vaginal bleeding, abdominal cramps, N/V, contractio ns, or LOF. Denies headache, vision changes, swelling of hands or face, and epigastric pain. Discussed PTL and precaution s given. There are no identifiab le risk factors for pre-term labor. [id number] Hamida Morales CNM [facility] [address] [place] [address] 08/17/2024 16:19:10 08/17/2024 16:56:57 Sharp pain 7317441 R52 Gestation period, 18 weeks 08330176 Z3A.18 Advised pt to f/u immediatel y if temp>101.; abdominal pain, vaginal bleeding greater than 1 pad/hr for greater than 2 hours; vaginal bleeding with or without cramping; bleeding w/clots; cramping like a period. Health Concerns Section Related Observation LastModified by Organization Detai ls LastModified Time None Recorded Concern Status LastModified by Organization Details LastModified Time None Recorded Advance Directives Directive None Recorded Payers Insurance Date Sequence Insurance Name Policy Number Policy Cantu Covered Member ID Cantu Member ID Guarantor Name 07/18/2024 1 [place] Davida Juan [id number] Davida Juan 05/15/2024 1 [employer] [place] - DOS ON OR AFTER 2020 (MEDICAID REPLACEMENT - HMO) Davida Juan [id number] Davida Juan 08/25/2024 1 [facility] (MEDICAID REPLACEMENT - HMO) Davida Juan [id number] Davida Juan Notes Date Note Type Note Provider Name and Address Organization Details Recorded Time 05/29/2024 text/html Davida present s for viability check today. Patient had US on 05-15-2024 that could not confirm viable at that time. Patient denies any cramping or bleeding. Reports issues with nausea/vomiting. Pt.has not been taking PNV. Pt. has concerns. DARNELL TRAMMELL NP [address] [place], [address], [facility] [employer] [facility] 05/29/2024 17:28:24 06/26/2024 text/html [facility] OB Return VisitReported bypatient. symptoms: movement [...] with large foramen ovale aneurysm delivered at [facility] Medical History: Asthma, COPD and sleep apnea uses CPAPCurrent everyday smoker smoking 2 cigarettes per day - Last pap 09/25/22 NILM - History of Genital HSV: HSV 1 lesion vaginally, plan for suppression -- Medications: Taking daily PNV, not taking any other medications -- Mom/Sisters with hx of Pre-Eclampsia: MARY LOU Patel [address] [place], [address], [facility] [employer] [facility] 06/27/2024 22:26:29 07/18/2024 text/html Davida is here for ob problem visitpatient 14.2 weekspatient c/o uTI symptoms burning when urinate and cloudy urinepatient c/o yeast infection and bv symptoms white discharge with itchypatient c/o pain in lower part of the stomach Hamida Morales CNM [address] [place], [address], [facility] [facility] IV 07/18/2024 14:12:28 07/24/2024 text/html Patient is here today for a routine OB visit. She is currently at 15.1 weeks gestation. vitamins: yes She has felt movement.Pt states she is having glucose issues.She denies any complaints of the presence of vaginal bleed, leaking fluid, abdominal cramps, nausea, vomiting, headache or visual disturbances. Pt. has no concerns. DARNELL TRAMMELL, INDER [address] [facility], [place], [address], [facility] IV 07/31/2024 00:26:06 08/17/2024 text/html Davida is here for ob problem visitpatient 18.4 weekspatient c/o stabbing pain around the belly area for 2 weekspatient c/o cant hear out both ear Hamida Morales CNM [address] [facility], [place], [address], [facility] IV 08/17/2024 16:48:54 OBGyn Episode Ob Episode Information Episode Created Date Number of Fetuses Patient Bloodtype Patient rh Status Prepregnancy Weight lbs Domestic Partner Domestic Partner Phone Father Name Dry Roaster Status 01/07/20 22 1 O Positive CLOSED Fetus Data First Name Last Name Admitted to NICU Weight (g) Sex Living Outcome Pediatric Complications Fetus ID Race Codes Race Delivery Type [id number] Problems Problem Notes large foramen ovale an eurysm on arrhythmia - Ped cardiology referral Problem Name Start Date End Date Resolution Snomed Code Not e heart disorder 205684318 Headache 33002368 Fatigue 51100899 Hemorrhoids 52769434 Gordon Calculation Initial Gordon Date Initial Exam [...] Weight in lbs Pre/Post Dialysis Refused Weight 149.147037327559 BP Diastolic BP Location Tested BP Systolic BP Type 62 134 Fetus Heart Rate Present A 150 Present Fetus Movement Comments 15 wks. Desires to have gene tic test done - will draw [place] panel. Also needs to do new OB labs - drawn today. Anatomy scan next Flowsheet Date 02/12/2022 Brooks Score Blood Edema Fundus Height Fundus Units Glucose Ketones Leukocytes Nitrite Labor Signs Protein Cervic Dilation Cervic Effacement Cervic Station none trace Type Weight in lbs Pre/Post Dialysis Refused Weight 158.650734752700 BP Diastolic BP Location Tested BP Systolic BP Type 66 110 Fetus Heart Rate Present Fetus Movement Comments Flowsheet Date 03/18/2022 Brooks Score Blood Edema Fundus Height Fundus Units Glucose Ketones Leukocytes Nitrite Labor Signs Protein Cervic Dilation Cervic Effacement Cervic Station 25 cm none neg Type Weight in lbs Pre/Post Dialysis Refused Weight 165.607207919941 BP Diastolic BP Location Tested BP Systolic BP Type 52 106 Fetus Heart Rate Present A 154 Fetus Movement A Yes Comments Health Safety Coordinator in for visit today. Julio hurley complains [...] in lbs Pre/Post Dialysis Refused With clothes 169.045503641963 BP Diastolic BP Location Tested BP Systolic [...] in lbs Pre/Post Dialysis Refused With clothes 174.81622398528 BP Diastolic BP Location Tested BP Systolic [...] in lbs Pre/Post Dialysis Refused With clothes 174.96784254450 BP Diastolic BP Location Tested BP Systolic BP Type 52 108 Fetus Heart Rate Present A 146 Fetus Movement A Yes Comments Pt was referred to M for c ardiac arrhythmia. Dr. Chary Peoples from [facility] spoke w/Dr Daly a few days ago regarding ultrasound findings. Davida's baby has a large foramen ovale aneurysm which can be a variant of normal, however this aneurysm is larger than normal and can cause irregular heart beat as noted w/US on 04/23. With MFM, the heart rhythm was normal for them. This patient needs two things.1. Need to decide where this patient is going to delivery. She told them at [facility] she was considering [facility].2. Refer her to Pediatric Cardiology at the place of her planned delivery.However, Davida noted at her visit that they told her baby's heart was normal. There is no report from [facility] available at the time of this visit. Additionally, Ander was seen at [facility] by cardiology and has to wear halter monitor for 2 weeks (?). I asked Davida to sign a records request so we can get cardiology report since her PCP sent the referral. She has a behavioral health case manager with her from [place] d/t her social situation. I am under [...] in lbs Pre/Post Dialysis Refused With clothes 177.762107573613 BP Diastolic BP Location Tested BP Systolic [...] Weight in lbs Pre/Post Dialysis Refused Weight 174.81109435154 BP Diastolic BP Location Tested BP Systolic [...] Domestic Partner Domestic Partner Phone Father Name Dry Roaster Status 02/23/19 24 1 DELETED Gordon Calculation Initial Gordon Date [...] Complications Tubal Sterilization Discharge Date Comments 1 [facility]- id[facility] Discharge Information Feeding Method Contraceptive Method Maternal HG B and HCT Levels Ob Episode Information Episode Created Date Number of Fetuses Patient Bloodtype Patient rh Status Prepregnancy Weight lbs Domestic Partner Domestic Partner Phone Father Name Dry Roaster Status 02/23/19 24 1 CLOSED Fetus Data First Name Last Name Admitted to NICU Weight (g) Sex Living Outcome Pediatric Complications Fetus ID Race Codes Race Delivery Type F Full Term [id number] Gordon Calculation Initial Gordon Date Initial Exam [...] Domestic Partner Domestic Partner Phone Father Name Dry Roaster Status 06/27/19 25 1 O Positive OPEN Fetus Data First Name Last Name Admitted to NICU Weight (g) Sex Living Outcome Pediatric Complications Fetus ID Race Codes Race Delivery Type [id number] Problems Problem Notes 2nd child history of large f oramen ovale aneurysm - did not have surgery, defect resolved on its own per pt+GBS in urine 07-24-24. 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, plan for suppressive therapy at 36 weeks History of asthma 06/26/2024 [id number] History of chronic obstructive airway disease 06/26/2024 514292350 History of respiratory disease 06/26/2024 397228699 AVELINA uses CPAP- needs anesthesia consult in [...] Gestation 0 [email or web address] 06/26/2024 01/15/20 25 0 Pre- Flowsheet Flowsheet Date 06/26/2024 Brooks Score Blood Edema Fundus Height Fundus Units Glucose Ketones Leukocytes Nitrite Labor Signs Protein Cervic Dilation Cervic Effacement Cervic Station none neg Type Weight in lbs Pre/Post Dialysis Refused With clothes 131.410508618905 BP Diastolic BP Location Tested BP Systolic [...] in lbs Pre/Post Dialysis Refused With clothes 132.63869547838 BP Diastolic BP Location Tested BP Systolic [...] in lbs Pre/Post Dialysis Refused With clothes 133.124740978823 BP Diastolic BP Location Tested BP Systolic BP Type 60 112 sitting Fetus Heart Rate Present A 163 Present Fetus Movement A No Comments c/o GERD and allergies pepci d and claritin rxd. resent to pharmacy. RTC at 20 wks for anatomy US. Flowsheet Date 08/17/2024 Brooks Score Blood Edema Fundus Height Fundus Units Glucose Ketones Leukocytes Nitrite Labor Signs Protein Cervic Dilation Cervic Effacement Cervic Station Type Weight in lbs Pre/Post Dialysis Refused With clothes 134.110154773003 BP Diastolic BP Location Tested BP Systolic BP Type 60 110 sitting Fetus Heart Rate Present A 157 Fetus Movement Comments Pt reports sharp pain latera lly. RLP discussed. Active movement observed on BSUS. F/u next routine appt Menstrual History Last Menstrual Date Menses Monthly [...] Domestic Partner Domestic Partner Phone Father Name Dry Roaster Status 07/19/19 25 1 CLOSED Fetus Data First Name Last Name Admitted to NICU Weight (g) Sex Living Outcome Pediatric Complications Fetus ID Race Codes Race Delivery Type F Full Term [id number] Gordon Calculation Initial Gordon Date Initial Exam [...] Domestic Partner Domestic Partner Phone Father Name Dry Roaster Status 07/19/19 25 1 CLOSED Fetus Data First Name Last Name Admitted to NICU Weight (g) Sex Living Outcome Pediatric Complications Fetus ID Race Codes Race Delivery Type , Spontane ous [id number] Gordon Calculation Initial Gordon Date Initial Exam [...]
--- OUTSIDE RECORDS SUMMARY | 2024-08-27 15:47 | XMS_ITS | Clinical Summary ---
Author Organization [facility] Address [address] [place] [address] Care Team Providers Care Engineering Librarian Name Role Phone Zak Arauz MD Primary [...] # Disposition: Follow up task sent to [facility] scheduling pool. Desires discharge home [...] When she was seen in the [facility] there was concern for a dropped beats and a arrhythmia and she was referred to MFM. A arrhythmia was also heard in her primary OB office. She was scanned by [facility] (care everywhere) which did not [...] antepa rtum 05/12/2022 Overview (06/23/2022): [facility] RN: Mariah Rodriguez - [phone] [x] Full [facility] Care; [x] Blue Team Referring Provider: [facility] - Hamida Morales [x] Dating Criteria: [...] Valentin [x] Method of feeding: breast [x] Pinion And Wheel Truer: [x] PP Depression Discussed: plan reviewed and [...] often do you attend chur ch or adventist services? More than 4 times per year [...] in a retirement (including now)? 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 Gender Identity Not on file Sexual Orientation [...] Epidur al N Livin g Complications:None Delivery Location:[facility] 2022 Term 39w 6d 21h 40m 21h 21m/0h 12m/0h 07m 4.29 kg (9 lb 7.3 oz) F Vagina l Combin ed Spinal /Epidu ral N Livin g 3 [address] ,[address] NELA Lugo , Carson Lauren MD Complications:Shoulder Dysto per Delivery Location:[facility] C ampus ([facility]LD) Last Filed Vital Signs Vital [...] Screening 02/06/2024 02/05/2023, 11/01/2022, 04/20/2022 Influenza Vaccine (#1) 2024 12/07/2012, 2004 DTaP/Tdap/Td Vaccine (7 - Td or Tdap) 06/04/2032 06/04/2022, 07/06/2012, 12/30/2001, Additional history exists Hepatitis B Screening Completed 09/19/2001 , 2000, 2000 Pneumococcal vaccine <65 Completed 003, 09/19/2001, 2000 HPV Vaccines Completed 08/25/2013, 08/09, 07/06/2012 Varicella Vaccines Completed 07/01/2022, 0 05/15/2014, 09/19/2001 Procedures Procedure Name Priority Date/Time Associated Diagnosis Comments N. GONORRHOEAE/C. TRACHOMATIS AMPLIFICATION STAT 02/05/2023 10:21 AM PAPER PLATE MACHINE TENDER from Last 3 Months or Most Recently Relevant to Health Maintenance Results * N. gonorrhoeae/C. trachomatis Amplification Urine (02/05/2023 10:21 AM PAPER PLATE MACHINE TENDER) C. trachomatis Not Detected Not Detected DEBBIE ARREOLA Comment:Testing performed by : [facility], [address] [place] [address]., [id number] N. gonorrhoeae Not Detected Not Detected DEBBIE ARREOLA Comment: Interpretive Data This assay detects Chlamydia trachomatis and Neisseria gonorrhoeae by nucleic acid amplification testing (NAAT). This assay has been cleared by the [place] Food and Drug administration. The performance characteristics of this test have been verified by the [facility]. The performance characteristics of this test have not been evaluated in individuals less than 14 years of age. Current Interpretive Data last revised 2022. Testing performed by: [facility], [address] [place] [address]., [address] Urine (None) 02/05/2023 10:2 1 AM PAPER PLATE MACHINE TENDER 02/05/2023 10:30 AM PAPER PLATE MACHINE TENDER us Ana Paula [facility]ERO LAB MICROBIOLOGY - GENERAL ORDER RANDY Final Result DEBBIE ARREOLA [address] [facility] Department [place] [address] from Last 3 Months or Most Recently Relevant to Health Maintenance Insurance [employer] BETTER [facility] [employer] [facility]TER [facility] [employer]TER [facility] Advance Directives For more information, please contact: [phone] * Full Code (Latest Code Status on File) Date Activated Date Inactivated Comments 06/30/2022 12:39 AM 07/01/2022 8:58 PM * Full Code Date Activated Date Inactivated Comments 06/28/2022 9:29 PM 06/30/2022 12:39 AM Full CPR in case of cardiopulmonary arrest Care Teams Engineering Librarian Relationship Specialty [place] [address] [place], [place] [id number] PCP - General Internal Medicine 03/16/22
--- OUTSIDE RECORDS SUMMARY | 2024-08-27 15:47 | XMS_ITS | Encounter Summary ---
Author Organization [facility] Address [facility] [facility] [place] [address] Care Team Providers Care Scrap Burner Name Role Phone Unavailable Primary Care Provider Unavailabl e Encounter Details Date Type Department Care Team (Latest Contact Info) Description 08/27/2024 1:50 PM CDT Hospital Encounter [facility] [address] [place] [address] Wilmar Gutierrez MD [address] [facility] [address] [place] [address] Maternal Medicine Social History Tobacco Use Types Packs/Day Years Used Date Smoking Tobacco: Never Assessed Comments No Sex and Gender Information Value Date Recorded Sex Assigned at Not on file Legal Sex Female 5:40 AM URBAN DESIGNER Gender Identity Not on file Sexual Orientation Not on file documented as of this encounter Plan of Treatment Not on file documented as of this encounter Visit Diagnoses Not on filedocumented in this encounter
--- OUTSIDE RECORDS SUMMARY | 2024-08-27 15:47 | XMS_ITS | Clinical Summary ---
Author Organization [email or web address] Address [address] [facility] [place] [address] Care Team Providers Care Tipple Tender Name Role Phone Unavailable Primary Care Provider Unavailabl e Source Comments [facility] [email or web address],non-owned Affiliates and Associated Physician Practices is amultiple site organization consisting of ambulatory clinics and hospital sitesin [place], [place], [place] and [place]. This disclosure is being madepursuant to the Care Everywhere program and may not contain all information available regarding this patient. Last updated 17.[facility] [email or web address] Allergies No known active allergies Encounters Date Type Department Care Team Description 08/27/2024 1:50 PM CDT Hospital Encounter [facility] [address] [place] [address] Wilmar Gutierrez MD Maternal Medicine from Last 3 Months Social History Tobacco Use Types Packs/Day Years Used Date Smoking Tobacco: Never Assessed Comments No Sex and Gender Information Value Date Recorded Sex Assigned at Not on file Legal Sex Female 5:40 AM ENGINEERING OFFICER Gender Identity Not on file Sexual Orientation [...]
--- OUTSIDE RECORDS SUMMARY | 2024-08-27 15:47 | XMS_ITS | Clinical Summary ---
Author Organization [facility] Address [address] [place] [phone] Care Team Providers Care Acid Crane Operator Name Role Phone Unavailable Primary Care [...] SMEAR 2021 INFLUENZA VACCINE (#1) 2024 Insurance [facility] MEDICAID
--- OUTSIDE RECORDS SUMMARY | 2024-08-27 15:47 | XMS_ITS | Referral Summary ---
Author Organization [facility] at the Medical Office Building Address [address] [place] [phone] Care Team Providers Care Clothing Consultant Name Role Phone Zak Arauz MD Primary [...] # Disposition: Follow up task sent to [facility] scheduling pool. Desires discharge home today. [...] (05/14/2022): When she was seen in the [facility] there was concern for a dropped beats and a arrhythmia and she was referred to MFM. A arrhythmia was also heard in her primary OB office. She was scanned by [facility] (care everywhere) which did not note [...] risk , antepa rtum 05/12/2022 Overview (06/23/2022): [facility] RN: Mariah Rodriguez - [phone] [x] Full [facility] Care; [x] Blue Team Referring Provider: [facility] - Hamida Morales [x] Dating Criteria: [...] Valentin [x] Method of feeding: breast [x] Dairy Management Specialist: [x] PP Depression Discussed: plan reviewed and [...] often do you attend chur ch or nondenominational services? More than 4 times per year [...] in a longterm (including now)? No 06/30/2022 [place] Depression Scale Answer Date Recorded [place] Depression Scale Total 3 09/03/2022 The thought [...] on file Legal Sex Female 2:54 PM COMMERCIAL ARTIST Gender Identity Not on file Sexual Orientation [...] GONORRHOEAE/C. TRACHOMATIS AMPLIFICATION STAT 02/05/2023 10:21 AM COMMERCIAL ARTIST from Last 3 Months or Most Recently Relevant to Health Maintenance Results * N. gonorrhoeae/C. trachomatis Amplification Urine (02/05/2023 10:21 AM COMMERCIAL ARTIST) C. trachomatis Not Detected Not Detected DEBBIE ARREOLA Comment:Testing performed by : [facility], [address] [place] [address]., [address] N. gonorrhoeae Not Detected Not Detected DEBBIE ARREOLA Comment: Interpretive Data This assay detects Chlamydia trachomatis and Neisseria gonorrhoeae by nucleic acid amplification testing (NAAT). This assay has been cleared by the [place] Food and Drug administration. The performance characteristics of this test have been verified by the [facility]. The performance characteristics of this test have not been evaluated in individuals less than 14 years of age. Current Interpretive Data last revised 2022. Testing performed by: [facility], [address] [place] [address], [place]., [address] Urine (None) 02/05/2023 10:2 1 AM COMMERCIAL ARTIST 02/05/2023 10:30 AM COMMERCIAL ARTIST us Ana Paula [facility] MICROBIOLOGY - GENERAL ORDER RANDY Final Result [facility] [address] [place] [address] from Last 3 Months or Most Recently Relevant to Health Maintenance Insurance [employer] BETTER [facility] Member Subscriber Plan / Payer (Ef fective 2020-Present) Name:Davida Juan Relation to Subscriber:Self Name:Davida Juan Payer ID:[id number] (NAIC) Group ID:Not on file Type:MEDICAID RISK OTHER Address: [facility] [id number] [place] [id number] [employer]TER [facility] AET[employer] BETTER [facility] Advance Directives For more information, please contact: [phone] * Full Code (Latest Code Status on File) Date Activated Date Inactivated Comments 06/30/2022 12:39 AM 07/01/2022 8:58 PM * Full Code Date Activated Date Inactivated Comments 06/28/2022 9:29 PM 06/30/2022 12:39 AM Full CPR in case of cardiopulmonary arrest Care Teams Clothing Consultant Relationship Specialty [place] [address] [place] [address] PCP - General Internal Medicine 03/16/22
--- OUTSIDE RECORDS SUMMARY | 2024-08-27 15:47 | XMS_ITS | Data Portability ---
Author Organization [facility] [employer], Main Office Address [address] [place] [address] Assessment Encounter Date Assessment Date Assessment LastModified by Organization Details LastModified Time 01/27/2023 01/27/2023 Assessment: Nicotine Mild OSAHS, AHI = 8 PLMD Hypoventilation Plan: The following were reviewed and explained to the patient: primary care/referral note [facility] home sleep study 05/27/22 AHI = [...] Follow-up: 1 week after titration sleep study [facility] Not available 01/27/2023 09:51:51 05/27/2023 05/27/2023 Assessment: Rhinitis Mild OSAHS, AHI = 8 Plan: The following were reviewed and explained to the patient: [facility] home sleep study 05/27/22 AHI = 8, supine AHI = 10 [facility] titration sleep study 05/15/23 sleep onset [...] carrier. Patient will setup an appointment with [facility] for supplies and pressure adjustments. A major [...] 0.53 L (35%), DLCO 63%, DLCO/VA 80% [facility] home sleep study 05/27/22 AHI = 8, supine AHI = 10 [facility] titration sleep study 05/15/23 sleep onset [...] carrier. Patient will setup an appointment with [facility] for supplies and pressure adjustments. A major [...] arnel, titration study - Auth approved, auth# [id number] 21, valid 01/27/23 - 11/28/232022 023 [facility], [address] [place], [address], 4 15:31:05 Medication Orders None recorded. Patient TargetsNo targets recorded. Patient InstructionsNo instructions recorded. Reason for Referral None Reported. Results Created Date Observation Date Name Description Value Unit Range Abnormal Flag Note LastModifiedBy Organization Detail LastModifiedTime 06/29/19 24 05/15/2023 polys omnog arnel, titra tion study No observ ation record ed. BARCODE [facility] [address] [place], [address], 06/29/2023 15:12:39 07/29/19 24 07/28/2023 compl ete PFT w/ post [facility] ator ashlie metry * No observ ation record ed. BARCODE Not Available 2023 12:22:29 Result Notes None recorded. 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 Medical Equipment [...] Available Not Available No t Available metoclopram rtino 10 mg tablet TAKE 1 TABLET BY [...] /min 15 /min Rick Sargent MD [address] [facility], [facility] [address], [place], [address], [place] [facility] Alexis Bittar 05/27/2023 10:19:19 Date Recorded Body height Body mass index (BMI) Body weight Oxygen saturation Oxygen saturation in Arterial blood by Pulse oximetry Body temperature Systolic And Diastolic Provider Name and Address Organization Details Last Updated DateTime 04/18/202 4 162.56 cm 24.2 kg/m2 04863.5 2 g 98 % 98 % 97.2 [degF] 120/76 mm[Hg] Jax Hairston [facility] [employer] [facility] [employer] [facility] 4 09:35:32 Date Recorded Heart rate Heart rate Body temperature Respiratory rate Provider Name and Address Organization Details Last Updated DateTime 08/26/2023 108 /min 108 /min 98.1 [degF] 14 /min Rick Sargent MD [address] [facility] [employer] [address], [address] [place], [place] [employer] [facility] [employer] 08/26/2023 15:59:25 Date Recorded Body height Body mass index (BMI) Body weight Oxygen saturation Oxygen saturation in Arterial blood by Pulse oximetry Systolic And Diastolic Provider Name and Address Organization Details Last Updated DateTime 4 162.56 cm 24.9 kg/m2 28471.8 9 g 98 % 98 % 118/68 mm[Hg] Jax Hairston [facility] [employer] [facility] [employer] 4 15:26:25 Date Recorded Heart rate Respiratory rate Provider N kings and Address Organization Details Last Updated DateTime 01/27/2023 76 /min 15 /min Rick Sargent MD [address] [facility] [employer] [address] [place] [address], [place], [address] [employer] [facility] [employer] 01/27/2023 09:47:39 Date Recorded Body weight Body mass index (BMI) Body height Body temperature Heart rate Oxygen saturation Oxygen saturation in Arterial blood by Pulse oximetry Systolic And Diastolic Provider Name and Address Organization Details Last Updated DateTime 3 38493.6 7 g 25.4 kg/m2 162.56 cm 98.1 [degF] 76 /min 98 % 98 % 118/76 mm[Hg] Sandra Green MA [employer] [facility] [employer] 3 09:19:25 Social History Question Answer Notes LastModified by Organizat ion Details LastModified Time Tobacco Smoking Status Current Every Day Smoker Sandra Green MA null, [facility] [employer] 01/27/2023 09:15:26 What Is Your Level Of [...] anxious, or unable to sleep at night)? [id number] Information not available 01/27/2023 Family History Relationship [...] SNOMED-CT Code Diagnosis ICD10 Code Diagnosis Note [id number] Rick Sargent MD [place] [address] 01/27/2023 09:01:49 01/28/2023 08:54:47 Obstructive sleep apnea syndrome 09797113 G47.33 G47.36 G47.61 [id number] Rick Sargent MD [place] [address] 0 05/27/2023 09:22:09 05/28/2023 08:43:41 Obstructive sleep apnea syndrome 79756612 G47.33 [id number] Rick Sargent MD [place] [address] 08/26/2023 15:07:03 08/27/2023 08:09:56 Obstructive sleep apnea syndrome 26364911 G47.33 Health Concerns Section Related Observation LastModified by Organization Detai ls LastModified Time None Recorded Concern Status LastModified by Organization Details LastModified Time None Recorded Advance Directives Directive None Recorded Payers Insurance Date Sequence Insurance Name Policy Number Policy Cantu Covered Member ID Cantu Member ID Guarantor Name 08/14/2024 1 [employer] [place] - DOS ON OR AFTER 2020 (MEDICAID REPLACEMENT - HMO) Davida Juan [id number] Davida Juan 07/24/[address] [facility] Davida Juan SELF SELF Davida Mayer Drake 08/17/2024 1 [facility] ON OR AFTER 08/08/20 (MEDICAID REPLACEMENT - HMO) Davida Mayer Drake [id number] Davida Mayer Drake 08/14/2024 2 [place] [employer] Davida Juan [id number] Davida Mayer Juan Notes Date Note Type Note Provider Name and Address Organization Details Recorded Time 01/27/2023 text/html Primary care/Ref erring provider: Sammie Coates MD During the [facility] home sleep study on 05/27/22 AHI [...] patient has a moderate chance of dozing. Rcik Sargent MD [address] [place] [address], [address], [place] [facility] [employer] [facility] 01/27/2023 09:58:37 05/27/2023 text/html Primary care/Ref erring provider: Zak Arauz MD; Sammie Coates MD During the [facility] home sleep study on 05/27/22 AHI = 8, supine AHI = 10. During the [facility] titration sleep study on 05/15/23, sleep [...] water. The patient wears a [employer] small Veronika nasal mask without chin strap. [...] moderate chance of dozing. Rick Sargent MD [address] [place] [address], [place] [address], [place], [address], [facility] [employer] 06/11/2023 08:45:56 08/26/2023 text/html Primary care/Ref erring provider: Zak Arauz MD; Sammie Coates MD CC: My compliance rate is down as my older daughter won't go to sleep until late. During the [facility] home sleep study on 05/27/22 AHI = 8, supine AHI = 10. During the [facility] titration sleep study on 05/15/23, sleep [...] water. The patient wears a [employer] small Veronika nasal mask without chin strap. [...] moderate chance of dozing. Rick Sargent MD [address] [place] [address], [place], [address], [place] [facility] [place] [employer] [facility] 08/26/2023 16:07:27 OBGyn Episode No OBEpisode recorded.
[2024-08-27 15:49] VITALS: BP 119/52; PULSE 110; RESP 16; TEMP 36.4; O2SAT 98
[2024-08-27] MEDS: SODIUM CHLORIDE 0.9% IV 1,000 ML 999 ML IV CONT (17:35)
[2024-08-27 17:44] LABS: Hematocrit 28.2 % (37.0-47.0); Hemoglobin 9.3 g/dL (12.0-15.0); Immature Granulocyte Percent A 0.7 % (0-0.5); Lymphocytes Absolute Auto 1.89 K/mm3 (0.9-3.2); Mean Corpuscular HGB Conc 33.0 g/dl (32-36); Mean Corpuscular Hemoglobin 29.6 pg (26-34); Mean Corpuscular Volume 89.8 fl (80-100); Nucleated Red Blood Cells Absolute Auto 0.000 K/mm3 (0.0-0.012); Nucleated Red Blood Cells Perc 0.0 % (0.0-0.2); Platelet Count Result 224 k/mm3 (150-375); Red Blood Count 3.14 M/mm3 (4.2-5.4); White Blood Count 9.0 K/mm3 (4.5-10.0)
[2024-08-27 17:56] LABS: Alanine Aminotransferase 9 U/L (6-35); Albumin Level 3.4 g/dL (3.5-5.1); Alkaline Phosphatase 56 U/L (38-126); Anion Gap 4 mmol/L (4-12); Aspartate Amino Transferase 21 U/L (14-36); Bilirubin,Total 0.3 mg/dL (0.2-1.3); Blood Urea Nitrogen 6 mg/dL (7-17); Calcium 8.6 mg/dL (8.4-10.2); Carbon Dioxide 23 mmol/L (22-30); Chloride 107 mmol/L (98-107); Estimated CRCL calculation 131 ml/min; Estimated Glomerular Filt Rate > 60; Glucose 88 mg/dL (65-110); Potassium 3.9 mmol/L (3.4-5.0); Sodium 134 mmol/L (137-145); Total Protein 5.9 g/dL (6.3-8.2)
[2024-08-27 18:30] LABS: Add Urine Microscopic? YES; Appearance Urine Turbid (Clear); Glucose Urine UA Negative (Negative); Leukocyte Esterase Ur Trace LEU/UL (Negative); Need Manual Microscopic Reviewed; Nitrate Urine Negative (Negative); Non Pathogenic Casts 0-2; Specific Grav Ur 1.017 (1.001-1.035)
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
--- NOTE | 2024-08-27 21:23 | PC.NURSE ---
patient stated she did not waint to wait to be transfered to [facility]. states she plans to leave and try to find a ride there. Patient refused to sign AMA papers . This RN explained the need for continued care and the risks of leaving
== END 2024-08-27 21:28 | disposition left against medical advice (07) ==
PROVIDERS: Emergency Provider Registered Nurse
DX: O9A.212 Injury, poisoning and certain other consequences of external causes complicating pregnancy, second trimester (principal); S20.219A Contusion of unspecified front wall of thorax, initial encounter; S40.022A Contusion of left upper arm, initial encounter; S40.021A Contusion of right upper arm, initial encounter; S80.12XA Contusion of left lower leg, initial encounter; S80.11XA Contusion of right lower leg, initial encounter; S10.93XA Contusion of unspecified part of neck, initial encounter; O99.332 Smoking (tobacco) complicating pregnancy, second trimester; F17.210 Nicotine dependence, cigarettes, uncomplicated; Z3A.20 20 weeks gestation of pregnancy; Y04.2XXA Assault by strike against or bumped into by another person, initial encounter
CPT/HCPCS: 36415; 76815; 80053; 81001; 85025; 93880; 96360; 99284; J7030

== ENCOUNTER 2024-09-08 12:40 | Emergency (ER) | payer OTHER, SELFPAY ==
--- NOTE | ~2024-09-08 | XR_ITS ---
CHEST RADIOGRAPH, PA AND LATERAL CLINICAL HISTORY: chest pain, known preg 21wk, PATIENT DOUBLE SHIELDED . COMPARISON: 04/26/2024 TECHNIQUE: PA and lateral views of the chest. FINDINGS The cardiomediastinal silhouette is unremarkable. The lungs are clear. IMPRESSION: No focal infiltrate or effusion. Reviewed, dictated and finalized at location A.
--- NOTE | ~2024-09-08 | XR_ITS ---
HISTORY: shoulder pain COMPARISON: None TECHNIQUE: 2 views of the right shoulder were performed FINDINGS: No acute fracture. The glenohumeral and acromioclavicular joint space is maintained The visualized portion of the adjacent right lung is clear. The humeral head is well seated within the glenoid fossa. IMPRESSION: No acute fracture or anterior dislocation. Reviewed, dictated and finalized at location A.
--- OUTSIDE RECORDS SUMMARY | 2024-09-08 12:42 | XMS_ITS | Clinical Summary ---
Author Organization [facility] at the Medical Office Building Address [address] [place] [id number] Care Team Providers Care Supervisor Product Inspection Name Role Phone Zak Arauz MD Primary [...] # Disposition: Follow up task sent to [facility] scheduling pool. Desires discharge home today. [...] (05/14/2022): When she was seen in the [facility] there was concern for a dropped beats and a arrhythmia and she was referred to MFM. A arrhythmia was also heard in her primary OB office. She was scanned by Marian [facility] (care everywhere) which did not note [...] risk , antepa rtum 05/12/2022 Overview (06/23/2022): [facility] RN: Mariah Rodriguez - [phone] [x] Full [facility] Care; [x] Blue Team Referring Provider: [facility]'s [facility] - Hamida Morales [x] Dating Criteria: [...] Valentin [x] Method of feeding: breast [x] Union Representative: [x] PP Depression Discussed: plan reviewed and [...] often do you attend chur ch or uatsdin services? More than 4 times per year 06/30/2022 Do you belong to any clubs o r organizations such as zoroastrianism groups, unions, fraternal or athletic groups, or [...] in a alf (including now)? 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 TRACHOMATIS AMPLIFICATION STAT 02/05/2023 10:21 AM CODING SPECIALIST HOME HEALTH from Last 3 Months or Most Recently Relevant to Health Maintenance Results * N. gonorrhoeae/C. trachomatis Amplification Urine (02/05/2023 10:21 AM CODING SPECIALIST HOME HEALTH) C. trachomatis Not Detected Not Detected DEBBIE ARREOLA Comment:Testing performed by : [facility], [address] [place] [address]., [id number] N. gonorrhoeae Not Detected Not Detected DEBBIE ARREOLA Comment: Interpretive Data This assay detects Chlamydia trachomatis and Neisseria gonorrhoeae by nucleic acid amplification testing (NAAT). This assay has been cleared by the [place] Food and Drug administration. The performance characteristics of this test have been verified by the [facility]. The performance characteristics of this test have not been evaluated in individuals less than 14 years of age. Current Interpretive Data last revised 2022. Testing performed by: [facility], [address] [place] [address]., [address] Urine (None) 02/05/2023 10:2 1 AM CODING SPECIALIST HOME HEALTH 02/05/2023 10:30 AM CODING SPECIALIST HOME HEALTH us Ana Paula ROMERO LAB MICROBIOLOGY - GENERAL ORDER RANDY Final Result DEBBIE [address] [facility] Department [place] [address] from Last 3 Months or Most Recently Relevant to Health Maintenance Insurance [facility] Advance Directives For more information, please contact: [phone] * Full Code (Latest Code Status on File) Date Activated Date Inactivated Comments 06/30/2022 12:39 AM 07/01/2022 8:58 PM * Full Code Date Activated Date Inactivated Comments 06/28/2022 9:29 PM 06/30/2022 12:39 AM Full CPR in case of cardiopulmonary arrest Care Teams Supervisor Product Inspection Relationship Specialty Start Date End Date Zak Arauz MD [address] [address] PCP - General Internal Medicine 03/16/22
--- OUTSIDE RECORDS SUMMARY | 2024-09-08 12:43 | XMS_ITS | Encounter Summary ---
Author Organization [facility] Address [address] [facility] [place] [address] Care Team Providers Care Hospital Cook Name Role Phone Unknown, Provider Primary Care Provider Unavaila ble Reason for Visit * Reason Comments Ultrasound Consultation Encounter Details Date Type Department Care Team (Latest Contact Info) Description 09/06/2024 2:00 PM CDT - 09/06/2024 11:59 PM CDT Hospital Encounter [facility] Maternal & Care [address] [place] [address] Ortiz Pereira MD [address] [facility] [address] [place] [address] Discharge Disposition: Home or Self Care Social History Tobacco Use Types Packs/Day Years Used Date Smoking Tobacco: Every Day Cigarettes Smokeless Tobacco: Never Tobacco Cessation:Ready to Q uit: Not Asked; Counseling Given: Not Answered Alcohol Use Standard Drinks/Week Comments Not Currently 0 (1 standard drink = 0.6 oz pur e alcohol) Estimated Date of Delivery Comme nts Yes 01/14/2025 Based on last me nstrual period of 04/09/2024 Sex and Gender Information Value Date Recorded Sex Assigned at Not on file 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 Gender Identity Not on file Sexual Orientation Not on file documented as of this encounter Last Filed Vital Signs Vital Sign Reading Time Taken Comments Blood Pressure 103/52 09/06/2024 2:33 PM CDT Pulse 87 09/06/2024 2:33 PM CDT Temperature - - Respiratory Rate - - Oxygen Saturation - - Inhaled Oxygen Concentration - - Weight 61.2 kg (135 lb) 09/06/2024 2:33 PM CDT Height 162.6 cm (5' 4) 09/06/2024 2:33 PM CDT Body Mass Index 23.17 09/06/2024 2:33 PM CDT documented in this encounter Medications at Time of Discharge albuterol HFA (Proventil; Ventolin; Proair) 108 (90 Base) MCG/ACT inhaler INHALE 2 PUFFS BY MOUTH EVERY 6 HOURS NEEDED FOR SHORTNESS OF BREATH cephalexin (Keflex) 500 MG capsule TAKE 1 ORAL CAPSULE 4 TIMES A DAY X 7 DAYS 09/02/2024 ferrous sulfate 325 (65 FE) MG tablet Take 1 (one) tablet by mouth once daily OMEPRAZOLE PO TAKE 1 CAPSULE BY MOUTH EVERY DAY FOR 30 DAYS FOR ACID REFLUX MV & Min w/FA-DHA ( GUMMIES PO) documented as of this encounter Progress Notes * Abigail Queen, RN - 09/06/2024 2:53 PM CDT Co-Manage with [facility] New patient here at 21w3d for ultrasound and virtual provider visit due to abnormal ultrasound and prior child with cardiac history. Here today with her 2 children and no other support; difficult to complete visit and obtain history due to children. Reporting episodes of palpitations and heart racing - has cardiology appt in 3 weeks. Denies headache, visual changes, or RUQ pain. Reports feeling movement. Reporting pain in her RLQ. Reporting yeast infection symptoms; is currently being treated for UTI. Educated on importance of taking theentire course of abx. Medical history and OB history reviewed. Home medications reviewed; vital signs WNL. Urine dip today = negative NIPT = low risk See note per Dr. Pereira for further plan of care. MFM follow up: 4 weeks for US and AUTOMOTIVE PARTS COUNTER ASSISTANT visit States she does not have her next appt with [facility] set up - encouraged to call [facility]. Pulmonology referral entered in [employer] message sent to Richi De. echo order entered in [employer] sent to [facility]. BP 103/52 Pulse 87 Ht 1.626 m (5' 4) Wt 61.2 kg (135 lb) documented in this encounter Consult Notes * Ortiz Pereira MD - 09/06/2024 5:25 PM CDT MFM CONSULT * Martinez IUP at 21 weeks of gestation by stated EDC from LMP & early U/S * Referred to [facility] for obstetrical U/S & request for consult secondary to: Outside U/S findings of pericardial effusion & enlarged gallbladder Maternal cardiac history, palpitations, fatigue * Today's ultrasound (U/S) findings: Living martinez intrauterine fetus growth is in the normal range Amniotic fluid volume appears normal Comprehensive anatomic survey appears normal, but is incomplete Pericardial fluid is 2.8 mm which is above average but likely physiologic The gallbladder appears subjectively larger than average Gallbladder measurements (normative ranges per Sosa 1994) Length = 21 mm, expected mean (range) = 16 (12-20) mm AP = 5 mm, expected mean (range) = 4 (3-5) mm There are no observable gallstones There are no intrahepatic or choledochal cysts Nuchal fold is prominent 6.7 mm Endovaginal U/S was performed to better assess cervix & placenta Functional cervical length is normal-range Placenta is clear of the internal cervical os by > 2 cm PAST MEDICAL & OBSTETRICAL HISTORY * Medications: vitamins & iron & see PMH below * Past Medical History: No CHTN, no DM, no thyroidopathy, no VTE, no SLE COPD, AVELINA, asthma per patient on PRN albuterol (takes 1-2 x/week) Anemia, on iron PO Urinary tract infection (UTI), on Keflex * Past Surgical History: 0 * Past Gynecologic History: no conization, no LEEP, no D&C * Past Obstetrical History: G1: 39 wk 7#1oz G2: 40 wk 9#7oz ? shoulder dystocia with temporary brachial plexopathy She states fetus had arrhythmia & holes in heart not requiring surgery G3: SAB 8 wk G4: Current , low-risk cf-DNA & limited carrier screen * Family history of anomalies, syndromes or developmental delay: none known * Social History: Tobacco use disorder, now ~ <= 5 cigarettes/day * Review of Systems: (+) fatigue & palpitations * Physical Examination: BP = 103/52 mmHg, P = 87 bpm, SpO2 = 100%, Wt = 135 # * Lab today urine dipstick: glucose (0), ketones (0), protein (0), blood (0), leukocytes (0) COUNSELING & RECOMMENDATIONS * Today's borderline U/S findings are not c/w any specific underlying problem, but could pose an increase risk of aneuploidy despite negative cf-DNA. Thus we discussed the option of genetic amniocentesis, which she declined, as she feels results if abnormal would not impact management. * In my best medical opinion, I would advise: Multi-disciplinary care with: [employer], for primary obstetrical care & delivery MF follow-up consult in 4 weeks with our Nurse Practitioner Cardiology consult is previously scheduled Pulmonology consult Smoking risks were discussed & cessation was strongly encouraged Follow-up assessment: Complete comprehensive anatomic survey in 4 weeks, then growth q 4 weeks echocardiogram by Pediatric Cardiology testing (e.g. NST+BPP or NST+PADMINI) to be determined Delivery planning (timing, mode, location): need to address prior shoulder dystocia COMMENTS * Thank you very much for requesting [facility] participation in her obstetrical care * Findings were explained & questions were addressed & precautions were given to patient * U/S does not detect all structural, genetic & functional oesdpjnw-rabze-atpjidkuw abnormalities * Telemedicine services were performed for this U/S examination & MFM consultation Patient's identity was confirmed at the [facility] office Appropriateness of the telehealth consult was confirmed Informed consent for telemedicine services was obtained & scanned into EMR Modality was secure interactive audio-video session using Epic/Livra Panelsom Patient site location was [facility] & nurse presenter was A Bernice Sherman site provider was Ortiz Pereira MD & location was home office New consult = 60 minutes total, including record review & counseling & coordination of care Ortiz Pereira MD Professor, UTILITY AIDE [facility] [employer] documented in this encounter Plan of Treatment Upcoming Encounters Date Type Department Care Team (Late st Contact Info) Description 10/05/2024 10:30 AM CDT Appointment [facility] Maternal & Care [address] [place] [address] Lucretia Sorenson MD [address] [facility] [address] [place] [address] 10/05/2024 11:15 AM CDT Appointment [facility] Maternal & Care [address] [facility] [address] [address] Lucretia Sorenson MD [address] [facility] [address] [place] [address] documented as of this encounter Visit Diagnoses Diagnosis Systolic murmur- Primary Undiagnosed cardiac murmurs History of shoulder dystocia in prior Chronic obstructive pulmonary disease, unspecified COPD type (HCC) 21 weeks gestation of (HCC) state, incidental Abnormal ultrasound Abnormal findings on screening documented in this encounter Care Teams Hospital Cook Relationship Specialty Start Date End Date Unknown, Provider PCP - General 09/06/24 documented as of this encounter
--- OUTSIDE RECORDS SUMMARY | 2024-09-08 12:43 | XMS_ITS | Referral Summary ---
Author Organization [facility] at the Medical Office Building Address [address] [place] [id number] Care Team Providers Care Slitter Scorer Cut Off Operator Name Role Phone Zak Arauz MD [...] # Disposition: Follow up task sent to [facility] scheduling pool. Desires discharge home today. Macrosomia [...] (05/14/2022): When she was seen in the [facility] there was concern for a dropped beats and a arrhythmia and she was referred to MFM. A arrhythmia was also heard in her primary OB office. She was scanned by [facility] (care everywhere) which did not note an [...] risk , antepa rtum 05/12/2022 Overview (06/23/2022): [facility] RN: Mariah Rodriguez - [phone] [x] Full [facility] Care; [x] Blue Team Referring Provider: [facility] - Hamida Morales [x] Dating [...] Valentin [x] Method of feeding: breast [x] M1 Armor Crewman: [x] PP Depression Discussed: plan reviewed and [...] often do you attend chur ch or scientology services? More than 4 times per year 06/30/2022 Do you belong to any clubs o r organizations such as druze groups, unions, fraternal or athletic groups, or [...] place to sleep or slept in a mcfp (including now)? 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 TRACHOMATIS AMPLIFICATION STAT 02/05/2023 10:21 AM OPEN HEARTH FURNACE OPERATOR from Last 3 Months or Most Recently Relevant to Health Maintenance Results * N. gonorrhoeae/C. trachomatis Amplification Urine (02/05/2023 10:21 AM OPEN HEARTH FURNACE OPERATOR) C. trachomatis Not Detected Not Detected DEBBIE ARREOLA Comment:Testing performed by : [facility], [address] [place] [address]., [id number] N. gonorrhoeae Not Detected Not Detected DEBBIE ARREOLA Comment: Interpretive Data This assay detects Chlamydia trachomatis and Neisseria gonorrhoeae by nucleic acid amplification testing (NAAT). This assay has been cleared by the [place] Food and Drug administration. The performance characteristics of this test have been verified by the [facility]. The performance characteristics of this test have not been evaluated in individuals less than 14 years of age. Current Interpretive Data last revised 2022. Testing performed by: [facility], [address] [place] [address]., [id number] Urine (None) 02/05/2023 10:2 1 AM OPEN HEARTH FURNACE OPERATOR 02/05/2023 10:30 AM OPEN HEARTH FURNACE OPERATOR us Ana Paula [facility] LAB MICROBIOLOGY - GENERAL ORDER RANDY Final Result DEBBIE ARREOLA [address] [facility] [place] [address] from Last 3 Months or Most Recently Relevant to Health Maintenance Insurance [facility] Advance Directives For more information, please contact: [phone] * Full Code (Latest Code Status on File) Date Activated Date Inactivated Comments 06/30/2022 12:39 AM 07/01/2022 8:58 PM * Full Code Date Activated Date Inactivated Comments 06/28/2022 9:29 PM 06/30/2022 12:39 AM Full CPR in case of cardiopulmonary arrest Care Teams Slitter Scorer Cut Off Operator Relationship Specialty Start Date End Date Zak Arauz MD [address] [place] [address] PCP - General Internal Medicine 03/16/22
--- OUTSIDE RECORDS SUMMARY | 2024-09-08 12:43 | XMS_ITS | Clinical Summary ---
Author Organization [facility] Address [address] [place] [address] Care Team Providers Care Radio Talk Show Host Name Role Phone Unknown, Provider Primary Care Provider Unavaila ble Source Comments [facility],non-owned Affiliates and Associated Physician Practices is amultiple site organization consisting of ambulatory clinics and hospital sitesin [place], [place], [place] and [place]. This disclosure is being madepursuant to the Care Everywhere program and may not contain all information available regarding this patient. Last updated 17.[facility] [employer] Allergies No known active allergies Medications * Be aware that medications may not be up to date on this document. Alwaysverify current medications with the patient. MV & Min w/FA-DHA ( GUMMIES PO) Active ferrous sulfate 325 (65 FE) MG tablet Take 1 (one) tablet by mouth once daily Active OMEPRAZOLE PO TAKE 1 CAPSULE BY MOUTH EVERY DAY FOR 30 DAYS FOR ACID REFLUX Active cephalexin (Keflex) 500 MG capsule TAKE 1 ORAL CAPSULE 4 TIMES A DAY X 7 DAYS Active albuterol HFA (Proventil; Ventolin; Proair) 108 (90 Base) MCG/ACT inhaler INHALE 2 PUFFS BY MOUTH EVERY 6 HOURS NEEDED FOR SHORTNESS OF BREATH Active Encounters Date Type Department Care Team Description 09/06/2024 2:00 PM CDT - 09/06/2024 11:59 PM CDT Hospital Encounter [facility] Women[facility] Health Maternal & Care [address] [place] [address] Ortiz Pereira MD Discharge Disposition: Home or Self Care 09/06/2024 1:00 PM CDT - 09/06/2024 1:59 PM CDT Hospital Encounter [facility] & [facility] [address] [place] [address] Ortiz Pereira MD Discharge Disposition: Home or Self Care 09/06/2024 Travel from Last 3 Months Social History Tobacco [...] on file 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 Gender Identity Not on file Sexual Orientation Not on file Last Filed Vital Signs Vital Sign Reading Time Taken Comments Blood Pressure 103/52 09/06/2024 2:33 PM CDT Pulse 87 09/06/2024 2:33 PM CDT Temperature 36.9 C (98.5 F) 10/08/2022 10:49 PM CDT Respiratory Rate 14 10/08/2022 10:49 PM CDT Oxygen Saturation 97% 10/08/2022 10:49 PM CDT Inhaled Oxygen Concentration - - Weight 61.2 kg (135 lb) 09/06/2024 2:33 PM CDT Height 162.6 cm (5' 4) 09/06/2024 2:33 PM CDT Body Mass Index 23.17 09/06/2024 2:33 PM CDT Plan of Treatment Upcoming Encounters Date Type Department Care Team (Late st Contact Info) Description 10/05/2024 10:30 AM CDT Appointment [facility] Maternal & Care [address] [place] [address] Lucretia Sorenson MD [address] [address] 10/05/2024 11:15 AM CDT Appointment [facility] [address] [place] [address] Lucretia Sorenson MD [address] [address] Health Maintenance Due Date Last Done Comments HPV VACCINE (1 - 3-dose series) 09/17/2015 MENINGOCOCCAL (Group B) VACCINE SHARED DECISION-MAKING (1 of 2 - Standard) 2016 HEPATITIS C SCREENING 09/12/2018 DTAP/TDAP/TD VACCINES (1 - Tdap) 09/17/2019 HEPATITIS B VACCINE (1 of 3 - 19+ 3-dose series) 09/17/2019 PNEUMOCOCCAL VACCINE (1 of 2 - PCV) 09/17/2019 PAP SMEAR 2021 COVID-19 VACCINE (1 - 2023-2 5 season) 2023 CHLAMYDIA/GONORRHEA SCREENING 11/02/2023 11/01/2022 DEPRESSION SCREENING 02/09/2024 OB-ONE HOUR GLUCOSE 10/08/2024 09/02/2020 INFLUENZA VACCINE (#1) 2024 3, 01/08/2005 OB-TDAP CURRENT 10/15/20242022, 07/06/2012 Respiratory Syncytial Virus (RSV) Vaccine Pt: or over 60 yrs (1 - Risk 1-dose series) 11/19/2024 OB-GROUP B STREP SCREEN 12/10/2024 10/29/2020 ZOSTER VACCINE (1 of 2) 2050 HIV SCREENING Completed 09/02/2020, 05/01/2020 HIB VACCINE Aged Out No longer eligi ble based on patient's age to complete this topic MENINGOCOCCAL GROUPS A/C/Y/W VACCINE Aged Out No longer eligible b ased on patient's age to complete this topic Procedures Procedure Name Priority Date/Time Associated Diagnosis Comments SONOGRAM - COMPLETE Routine 09/06/2024 1 :49 PM CDT Systolic murmur History of shoulder dystocia in prior Chronic obstructive pulmonary disease, unspecified COPD type (HCC) 21 weeks gestation of (HCC) Abnormal ultrasound from Last 3 Months Results * Sonogram - Complete (09/06/2024 1:49 PM CDT) Linked Results Indication ======== Abnormal finding on previous ultrasound pericardial fluid and dilated gallbladder Maternal cardiac disease, congenital, complicating , heart palpitations and fatigue unspecified Smoking (tobacco) complicating History ====== OB History 4. Para 2 [id number] 1. live 2020. Details: Vaginal delivery, full term 2. live 2022. Details: Vaginal delivery, full term, Shoulder dystocia 3. miscarriage 2023 Lab Tests Test Date Result NIPT Low risk, Male Maternal Assessment Physical Exam Height 163 cm, 5 ft 4 in. Weight 61 kg, 135 lb. Initial weight 62 kg, 137 lb. BMI 23.17 kg/m . Initial BMI 23.52 kg/m . Weight gain -1 kg, -2 lb Method ====== Transabdominal and transvaginal ultrasound examination. View: Suboptimal view: limited by position ========= Martinez . Number of fetuses: 1 Dating ====== Date Details Gest. age NENA LMP 04/09/2024 21 w + 3 d 01/14/2025 U/S 09/06/2024 based upon AC, BPD, Femur, HC 21 w + 6 d 01/11/2025 Assigned dating based on the LMP, selected on 09/06/2024 21 w + 3 d 01/14/2025 General Evaluation Cardiac activity present. FHR 148 bpm. movements: visualized. Presentation: transverse Placenta: Placental site: anterior, no previa. Placental upyh-tk-kymiqbgr os distance 66 mm Umbilical cord: Cord vessels: 3 vessel cord. Insertion site: normal insertion Amniotic fluid: Amount of AF: normal Biometry BPD 50.1 mm 21w 1d 38% Hadlock HC 194.8 mm 21w 5d 52% Hadlock Cerebellum tr 22.7 mm 66% [place]burg Nuchal fold 6.7 mm AC 180.0 mm 22w 6d 85% Hadlock Femur 36.4 mm 21w 4d 45% Hadlock Humerus 35.8 mm 22w 3d 79% Ady HC / AC 1.08 -/- Hadlock Weight Calculation: EFW 482 g 80% Hadlock EFW (lb,oz) 1 lb 1 oz EFW by Hadlock (OEG-DS-CJ-FL) Head / Face / Neck Biometry: CM 4.4 mm 20% Nicolaides appropriate Growth Overview Exam date GA BPD (mm) HC (mm) AC (mm) FL (mm) HL (mm) EFW (g) 09/06/2024 21w 3d 50.1 38% 194.8 52% 180 85% 36.4 45% 35.8 79% 482 80% Anatomy The following structures appear abnormal: Head / Neck Nuchal fold: nuchal thickening. The following structures appear normal: Head / Neck Cranium. Lateral ventricles. Choroid plexus. Midline falx. Cavum septi pellucidi. Cerebellum. Cisterna magna. Thalami. Face Lips. Profile. Nose. Nasal bone. Orbits. Heart / Thorax 4-chamber view. RVOT view. LVOT view. 3-vessel view. 4-gceouv-qnzyluo view. Situs. Bicaval view. Ductal arch view. Great vessels. Right lung. Left lung. Diaphragm. Abdomen Cord insertion. Stomach. Kidneys. Bladder. Bowel. Genitals. Spine Cervical spine. Thoracic spine. Lumbar spine. Sacral spine. Extremities / Skeleton Arms. Feet. Right leg. Right lower leg. Right foot. Left leg. The following structures could not be adequately visualized: Heart / Thorax Aortic arch view. Extremities / Skeleton Hands. Legs. Left lower leg. Left foot. Heart / Thorax other: Pericardial fluid measures 2.8 mm sex: male. Maternal Structures Cervix reassuring Approach - Transvaginal: Cervical length 4.60 cm Funneling absent Right Ovary Normal Left Ovary Normal Impression ========= * Martinez IUP at 21 weeks of gestation by stated EDC from LMP & early U/S * Referred to [facility] for obstetrical U/S & request for consult [...] opinion, I would advise: Multi-disciplinary care with: User Experience Team Lead, for primary obstetrical care & delivery MFM follow-up consult in 4 weeks with our [...] * Thank you very much for requesting [facility] participation in her obstetrical care * Findings were explained & questions were addressed & precautions were given to patient * U/S does not detect all structural, genetic & functional fyztfxjb-fngub-gze cental abnormalities * Telemedicine services were performed for this U/S examination & MFM consultation Patient's identity was confirmed at the [facility] office Appropriateness of the telehealth consult was confirmed Informed consent for telemedicine services was obtained & scanned into EMR Modality was secure interactive audio-video session using Cubicle/Scripped Patient site location was our [facility] & nurse presenter was A Bernice Distant site provider was Ortiz Pereira MD & location was home office New consult = 60 minutes total, including record review & counseling & coordination of care Comment ======== U/S cannot detect all structural, genetic, or functional , placental, or maternal abnormalities Follow-up ======== U/S in 4 weeks Coding ====== Procedures 03309: US Preg Uterus Detailed 18337: US Preg Uterus Transvaginal Caktus PACS Anatomical Region Laterality Modality Other 09/06/2024 1:49 PM CDT us Wilmar Casas MD [facility] ORDERABLES Edited Resul t - Final from Last 3 Months Insurance [facility] PLAN [facility] Care Teams Radio Talk Show Host Relationship Specialty Start Date End Date Unknown, Provider PCP - General 09/06/24
--- OUTSIDE RECORDS SUMMARY | 2024-09-08 12:43 | XMS_ITS | Clinical Summary ---
Author Organization [facility] Address [address] [place] [id number] Care Team Providers Care Drum Tender Name Role Phone Unavailable Primary Care [...] SMEAR 2021 INFLUENZA VACCINE (#1) 2024 Insurance [facility] MEDICAID
--- OUTSIDE RECORDS SUMMARY | 2024-09-08 12:43 | XMS_ITS | Continuity of Care Document ---
Author Organization [facility] Address [address] [place] [phone] Phone Care Team Providers Care Community Planning Technician Name Role Phone Rufino WATTS, FACC, Tessa Unavailable Unavailab le Procedures Procedure Date ELECTROCARDIOGRAM REPORT Advance Directives Directive Yes / No Effective Date File Name No Information Encounters Encounter Description Practice Location Reason(s) For Visit Diagnoses Date Provider Providers Copied on Encounter [facility], [address] [place] [address], [id number], tel:[phone] [facility] ER No Information Rufino Zarate. [address] [place] [address], [id number], . tel:[phone] Referring Provider: Tessa Joy, [address] [place] [address], [place], [address]. tel:[phone] Family History Family Member Type Diagnosis Age At Onset No Information Payers Payer name Insurance type Covered democrat ID Authoriza tileo(s) [place] MEDICAID [place] [id number] Social History Type Description Quantity Date Captured [...]
[2024-09-08 12:56] VITALS: BP 123/65; PULSE 105; RESP 17; O2SAT 98
--- OUTSIDE RECORDS SUMMARY | 2024-09-08 14:30 | XMS_ITS | Continuity of Care Document ---
Author Organization [facility] Address [address] [place] [phone] Phone Care Team Providers Care Title Abstractor Name Role Phone Rufino WATTS, FACC, Tessa Unavailable Unavailab le Procedures Procedure Date ELECTROCARDIOGRAM REPORT Advance Directives Directive Yes / No Effective Date File Name No Information Encounters Encounter Description Practice Location Reason(s) For Visit Diagnoses Date Provider Providers Copied on Encounter [facility], [address] [place] [address], [id number], tel:[phone] [facility] ER No Information Rufino Zarate. [address] [place] [address], [id number], . tel:[phone] Referring Provider: Tessa Joy, [address] [place] [address], [place], [address]. tel:[phone] Family History Family Member Type Diagnosis Age At Onset No Information Payers Payer name Insurance type Covered libertarian ID Authoriza tileo(s) [place] MEDICA[place] CI [id number] Social History Type Description Quantity Date Captured [...]
--- OUTSIDE RECORDS SUMMARY | 2024-09-08 14:30 | XMS_ITS | Clinical Summary ---
Author Organization [facility] Address [address] [place] [address] Care Team Providers Care Lead Material Handler Name Role Phone Unknown, Provider Primary Care Provider Unavaila ble Source Comments [facility],non-owned Affiliates and Associated Physician Practices is amultiple site organization consisting of ambulatory clinics and hospital sitesin [place], [place], [place] and [place]. This disclosure is being madepursuant to the Care Everywhere program and may not contain all information available regarding this patient. 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 Para 2 [id number] 1. live 2020. Details: Vaginal delivery, full [...] Placenta: Placental site: anterior, no previa. Placental rfgx-od-grrsbwvd os distance 66 mm Umbilical cord: Cord [...] 1 lb 1 oz EFW by Hadlock (RPQ-AM-EC-FL) Head / Face / Neck Biometry: CM [...] view. RVOT view. LVOT view. 3-vessel view. 4-ezrdpr-vuuznnh view. Situs. Bicaval view. Ductal arch view. [...] LMP & early U/S * Referred to [facility] for obstetrical U/S & request for consult [...] opinion, I would advise: Multi-disciplinary care with: Certified Alcohol Counselor, for primary obstetrical care & delivery MFM [...] * Thank you very much for requesting [facility] participation in her obstetrical care * Findings were explained & questions were addressed & precautions were given to patient * U/S does not detect all structural, genetic & functional nhvswxzd-aeyhy-zfj cental abnormalities * Telemedicine services were performed for this U/S examination & MFM consultation Patient's identity was confirmed at the [facility] office Appropriateness of the telehealth consult was confirmed Informed consent for telemedicine services was obtained & scanned into EMR Modality was secure interactive audio-video session using [employer] Patient site location was our [facility] & nurse presenter was A Bernice Distant site provider was Ortiz Pereira MD & location was home office New consult = 60 minutes total, including record review & counseling & coordination of care Comment ======== U/S cannot detect all structural, genetic, or functional , placental, or maternal abnormalities Follow-up ======== U/S in 4 weeks Coding ====== Procedures 25837: US Preg Uterus Detailed 41727: US Preg Uterus Transvaginal Systems PACS Anatomical Region Laterality Modality Other 09/06/2024 1:49 PM CDT us Wilmar Casas MD [facility] ORDERABLES Edited Resul t - Final from Last 3 Months Insurance [facility] PLAN [facility] Care Teams Lead Material Handler Relationship Specialty Start Date End Date Unknown, Provider PCP - General 09/06/24
--- OUTSIDE RECORDS SUMMARY | 2024-09-08 14:30 | XMS_ITS | Clinical Summary ---
Author Organization [facility] Address [address] [place] [phone] Care Team Providers Care Tank Hoop Bender Name Role Phone Zak Arauz MD Primary [...] # Disposition: Follow up task sent to [facility] scheduling pool. Desires discharge home [...] (05/14/2022): When she was seen in the [facility] there was concern for a dropped beats and a arrhythmia and she was referred to MFM. A arrhythmia was also heard in her primary OB office. She was scanned by [facility] (care everywhere) which did not [...] risk , antepa rtum 05/12/2022 Overview (06/23/2022): [facility] RN: Mariah Rodriguez - [phone] [x] Full [facility] Care; [x] Blue Team Referring Provider: [facility] - Hamida Morales [x] Dating Criteria: [...] Valentin [x] Method of feeding: breast [x] [facility] Former: [x] PP Depression Discussed: plan reviewed and [...] often do you attend chur ch or spiritism services? More than 4 times per year 06/30/2022 Do you belong to any clubs o r organizations such as taoist groups, unions, fraternal or athletic groups, or [...] place to sleep or slept in a intermediate (including now)? No 06/30/2022 Rogers Depression Scale Answer Date Recorded Rogers Depression Scale Total 3 09/03/2022 The thought [...] on file Legal Sex Female 2:54 PM DRUM CLEANER Gender Identity Not on file Sexual Orientation [...] Epidur al N Livin g Complications:None Delivery Location:[facility] 2022 Term 39w 6d 21h 40m 21h 21m/0h 12m/0h 07m 4.29 kg (9 lb 7.3 oz) F Vagina l Combin ed Spinal /Epidu ral N Livin g 3 [address] ,[address] NELA Lugo , Carson Lauren MD Complications:Shoulder Dysto per Delivery Location:[facility] ([facility]LD) Last Filed Vital Signs Vital Sign [...] GONORRHOEAE/C. TRACHOMATIS AMPLIFICATION STAT 02/05/2023 10:21 AM DRUM CLEANER from Last 3 Months or Most Recently Relevant to Health Maintenance Results * N. gonorrhoeae/C. trachomatis Amplification Urine (02/05/2023 10:21 AM DRUM CLEANER) C. trachomatis Not Detected Not Detected DEBBIE ARREOLA Comment:Testing performed by : [facility], [address] [place] [address]., [id number] N. gonorrhoeae Not Detected Not Detected DEBBIE ARREOLA Comment: Interpretive Data This assay detects Chlamydia trachomatis and Neisseria gonorrhoeae by nucleic acid amplification testing (NAAT). This assay has been cleared by the [place] Food and Drug administration. The performance characteristics of this test have been verified by the [facility]. The performance characteristics of this test have not been evaluated in individuals less than 14 years of age. Current Interpretive Data last revised 2022. Testing performed by: [facility], [address] [place] [address]., [id number] Urine (None) 02/05/2023 10:2 1 AM DRUM CLEANER 02/05/2023 10:30 AM DRUM CLEANER us Ana Paula [facility] MICROBIOLOGY - GENERAL ORDER RANDY Final Result DEBBIE [address] [facility] [place] [address] from Last 3 Months or Most Recently Relevant to Health Maintenance Insurance [facility] Advance Directives For more information, please contact: [phone] * Full Code (Latest Code Status on File) Date Activated Date Inactivated Comments 06/30/2022 12:39 AM 07/01/2022 8:58 PM * Full Code Date Activated Date Inactivated Comments 06/28/2022 9:29 PM 06/30/2022 12:39 AM Full CPR in case of cardiopulmonary arrest Care Teams Tank Hoop Bender Relationship Specialty Start Date End Date Zak Arauz MD [address] [address] PCP - General Internal Medicine 03/16/22
--- OUTSIDE RECORDS SUMMARY | 2024-09-08 14:30 | XMS_ITS | Clinical Summary ---
Author Organization [facility] Address [address] [place] [phone] Care Team Providers Care Plastic Joint Maker Name Role Phone Unavailable Primary Care Provider [...] SMEAR 2021 INFLUENZA VACCINE (#1) 2024 Insurance [facility] MEDICAID
--- OUTSIDE RECORDS SUMMARY | 2024-09-08 14:30 | XMS_ITS | Encounter Summary ---
Author Organization [facility] Address [address] [place] [address] Care Team Providers Care Machine Adjuster Leader Case Trim Name Role Phone Unknown, Provider Primary Care Provider Unavaila ble Reason for Visit * Reason Comments Ultrasound Consultation Encounter Details Date Type Department Care Team (Latest Contact Info) Description 09/06/2024 2:00 PM CDT - 09/06/2024 11:59 PM CDT Hospital Encounter [facility] [address] [place] [address] Ortiz Pereira MD [address] [facility] [address] [place] [address] Discharge Disposition: Home or Self [...] on file 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 Pulmonology referral entered in Proxino message sent to Richi De. echo order entered in Proxino sent to [facility]. BP 103/52 Pulse 87 Ht 1.626 m (5' 4) Wt 61.2 kg (135 lb) documented in this encounter Consult Notes * Ortiz Pereira MD - 09/06/2024 5:25 PM CDT MFM CONSULT * Martinez IUP at 21 weeks of gestation by stated EDC from LMP & early U/S * Referred to [facility] for obstetrical U/S & request for [...] opinion, I would advise: Multi-disciplinary care with: Sales Administration Specialist, for primary obstetrical care & delivery MF [...] * Thank you very much for requesting [facility] participation in her obstetrical care * Findings were explained & questions were addressed & precautions were given to patient * U/S does not detect all structural, genetic & functional cnmrcsme-geeat-kdvhwxpjz abnormalities * Telemedicine services were performed for this U/S examination & MFM consultation Patient's identity was confirmed at the [facility] office Appropriateness of the telehealth consult was confirmed Informed consent for telemedicine services was obtained & scanned into EMR Modality was secure interactive audio-video session using Epic[employer]om Patient site location was [facility] & nurse presenter was A Bernice [place] site provider was Ortiz Pereira MD & location was home office New consult = 60 minutes total, including record review & counseling & coordination of care Ortiz Pereira MD Professor, BILINGUAL OFFICE ASSISTANT [employer] documented in this encounter Plan of Treatment Upcoming Encounters Date Type Department Care Team (Late st Contact Info) Description 10/05/2024 10:30 AM CDT Appointment [facility] [address] [place] [address] Lucretia Sorenson MD [address] [facility] [address] [place] [address] 10/05/2024 11:15 AM CDT Appointment [facility] [address] [facility] [place] [address] Lucretia Sorenson MD [address] [facility] [address] [place] [address] documented as of this encounter Visit Diagnoses Diagnosis Systolic murmur- Primary Undiagnosed cardiac murmurs History of shoulder dystocia in prior Chronic obstructive pulmonary disease, unspecified COPD type (HCC) 21 weeks gestation of (HCC) state, incidental Abnormal ultrasound Abnormal findings on screening documented in this encounter Care Teams Machine Adjuster Leader Case Trim Relationship Specialty Start Date End Date Unknown, Provider PCP - General 09/06/24 documented as of this encounter
--- OUTSIDE RECORDS SUMMARY | 2024-09-08 14:30 | XMS_ITS | Referral Summary ---
Author Organization [facility] Address [address] [place] [address] Care Team Providers Care Air Value Tester Name Role Phone Zak Arauz MD Primary [...] # Disposition: Follow up task sent to [facility] scheduling pool. Desires discharge home today. [...] (05/14/2022): When she was seen in the [facility] there was concern for a dropped beats and a arrhythmia and she was referred to MFM. A arrhythmia was also heard in her primary OB office. She was scanned by [facility] (care everywhere) which did not note [...] risk , antepa rtum 05/12/2022 Overview (06/23/2022): [facility] RN: Mariah Rodriguez - [phone] [x] Full [facility] Care; [x] Blue Team Referring Provider: [facility] - Hamida Morales [x] Dating [...] Valentin [x] Method of feeding: breast [x] Local Driver: [x] PP Depression Discussed: plan reviewed and [...] often do you attend chur ch or restorationism services? More than 4 times per year 06/30/2022 Do you belong to any clubs o r organizations such as cheondoism groups, unions, fraternal or athletic groups, or [...] place to sleep or slept in a nursing home (including now)? 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 TRACHOMATIS AMPLIFICATION STAT 02/05/2023 10:21 AM SUPERVISOR WHIPPED TOPPING from Last 3 Months or Most Recently Relevant to Health Maintenance Results * N. gonorrhoeae/C. trachomatis Amplification Urine (02/05/2023 10:21 AM SUPERVISOR WHIPPED TOPPING) C. trachomatis Not Detected Not Detected DEBBIE ARREOLA Comment:Testing performed by : [facility], [address] [place] [address]., [id number] N. gonorrhoeae Not Detected Not Detected DEBBIE ARREOLA Comment: Interpretive Data This assay detects Chlamydia trachomatis and Neisseria gonorrhoeae by nucleic acid amplification testing (NAAT). This assay has been cleared by the [place] Food and Drug administration. The performance characteristics of this test have been verified by the [facility]. The performance characteristics of this test have not been evaluated in individuals less than 14 years of age. Current Interpretive Data last revised 2022. Testing performed by: [facility], [address] [place] [address]., [id number] Urine (None) 02/05/2023 10:2 1 AM SUPERVISOR WHIPPED TOPPING 02/05/2023 10:30 AM SUPERVISOR WHIPPED TOPPING us [facility]CROBIOLOGY - GENERAL ORDER RANDY Final Result DEBBIE ARREOLA [address] [facility] [place] [address] from Last 3 Months or Most Recently Relevant to Health Maintenance Insurance [facility] Advance Directives For more information, please contact: [phone] * Full Code (Latest Code Status on File) Date Activated Date Inactivated Comments 06/30/2022 12:39 AM 07/01/2022 8:58 PM * Full Code Date Activated Date Inactivated Comments 06/28/2022 9:29 PM 06/30/2022 12:39 AM Full CPR in case of cardiopulmonary arrest Care Teams Air Value Tester Relationship Specialty Start Date End Date Zak Arauz MD [address] [place] [address] PCP - General Internal Medicine 03/16/22
--- NOTE | 2024-09-08 14:40 | ECG_ITS ---
Test Date: 2024-09-08 15:03:25 Measurements Intervals Weed Rate: 74 P: 50 IL: 147 QRS: 76 QRSD: 86 T: 23 QT: 373 QTc: 414 Interpretive Statements SINUS RHYTHM NORMAL ECG Compared to ECG 04/26/2024 16:43:58 Atrial abnormality no longer present Electronically Signed On 09-08-2024 15:08:06 CDT by Damien Mccarthy D.O.
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
[2024-09-08 15:19] LABS: Hematocrit 30.1 % (37.0-47.0); Hemoglobin 9.8 g/dL (12.0-15.0); Immature Granulocyte Percent A 0.8 % (0-0.5); Lymphocytes Absolute Auto 1.80 K/mm3 (0.9-3.2); Mean Corpuscular HGB Conc 32.6 g/dl (32-36); Mean Corpuscular Hemoglobin 29.9 pg (26-34); Mean Corpuscular Volume 91.8 fl (80-100); Nucleated Red Blood Cells Absolute Auto 0.000 K/mm3 (0.0-0.012); Nucleated Red Blood Cells Perc 0.0 % (0.0-0.2); Platelet Count Result 183 k/mm3 (150-375); Red Blood Count 3.28 M/mm3 (4.2-5.4); White Blood Count 10.0 K/mm3 (4.5-10.0)
[2024-09-08 15:31] LABS: Alanine Aminotransferase 8 U/L (6-35); Albumin Level 3.4 g/dL (3.5-5.1); Alkaline Phosphatase 62 U/L (38-126); Anion Gap 1 mmol/L (4-12); Aspartate Amino Transferase 24 U/L (14-36); Bilirubin,Total 0.3 mg/dL (0.2-1.3); Blood Urea Nitrogen 5 mg/dL (7-17); Calcium 8.7 mg/dL (8.4-10.2); Carbon Dioxide 24 mmol/L (22-30); Chloride 106 mmol/L (98-107); Estimated CRCL calculation 144 ml/min; Estimated Glomerular Filt Rate > 60; Glucose 86 mg/dL (65-110); Potassium 4.0 mmol/L (3.4-5.0); Sodium 131 mmol/L (137-145); Total Protein 6.1 g/dL (6.3-8.2)
[2024-09-08] MEDS: MICONAZOLE NITRATE 2% VAGINAL CREAM 45 GM TUBE 1 APPFUL VAGINAL (15:36)
== END 2024-09-08 16:43 | disposition home or self-care (01) ==
PROVIDERS: Emergency Provider Student in an Organized Health Care Education/Training Program
DX: O9A.212 Injury, poisoning and certain other consequences of external causes complicating pregnancy, second trimester (principal); S46.911A Strain of unspecified muscle, fascia and tendon at shoulder and upper arm level, right arm, initial encounter; O98.812 Other maternal infectious and parasitic diseases complicating pregnancy, second trimester; B37.31 Acute candidiasis of vulva and vagina; O99.332 Smoking (tobacco) complicating pregnancy, second trimester; F17.210 Nicotine dependence, cigarettes, uncomplicated; Z3A.20 20 weeks gestation of pregnancy; X58.XXXA Exposure to other specified factors, initial encounter
CPT/HCPCS: 36415; 71046; 73030; 80053; 85025; 85380; 93005; 99284; A9270

== ENCOUNTER 2024-09-16 19:16 | Emergency (ER) | payer OTHER, SELFPAY ==
--- OUTSIDE RECORDS SUMMARY | 2024-09-16 19:19 | XMS_ITS | Continuity of Care Document ---
Author Organization [facility] Address [address] [place] [phone] Phone Care Team Providers Care Speedometer Inspector Name Role Phone Rufino WATTS, FACC, Tessa Unavailable Unavailab le Procedures Procedure Date ELECTROCARDIOGRAM REPORT Advance Directives Directive Yes / No Effective Date File Name No Information Encounters Encounter Description Practice Location Reason(s) For Visit Diagnoses Date Provider Providers Copied on Encounter [facility], [address] [place] [address], [id number], tel:[phone] [facility] No Information Rufino Zarate. [address] [place] [address], [id number], . tel:[phone] Referring Provider: Tessa Joy, [address] [place] [address], [place], [address]. tel:[phone] Family History Family Member Type Diagnosis Age At Onset No Information Payers Payer name Insurance type Covered green party ID Authoriza tileo(s) [place] [id number] Social History Type Description Quantity Date Captured [...]
--- OUTSIDE RECORDS SUMMARY | 2024-09-16 19:19 | XMS_ITS | Clinical Summary ---
Author Organization [facility] Address [address] [place] [id number] Care Team Providers Care Dosimetrist Name Role Phone Unavailable Primary Care Provider [...] SMEAR 2021 INFLUENZA VACCINE (#1) 2024 Insurance [facility] MEDICAID
--- OUTSIDE RECORDS SUMMARY | 2024-09-16 19:19 | XMS_ITS | Clinical Summary ---
Author Organization [facility] Address [address] [place] [address] Care Team Providers Care Step Finisher Name Role Phone Unknown, Provider Primary Care Provider Unavaila ble Source Comments [facility],non-owned Affiliates and Associated Physician Practices is amultiple site organization consisting of ambulatory clinics and hospital sitesin [place], [place], [place] and [place]. This disclosure is being madepursuant to the Care Everywhere program and may not contain all information available regarding this patient. 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 Para 2 [id number] 1. live 2020. Details: Vaginal delivery, full [...] Placenta: Placental site: anterior, no previa. Placental byaq-zq-lbempwqo os distance 66 mm Umbilical cord: Cord [...] 1 lb 1 oz EFW by Hadlock ([id number]) Head / Face / Neck Biometry: CM [...] view. RVOT view. LVOT view. 3-vessel view. 3-vbwhjv-nodtqfe view. Situs. Bicaval view. Ductal arch view. [...] LMP & early U/S * Referred to [facility] for obstetrical U/S & request for consult [...] opinion, I would advise: Multi-disciplinary care with: Firearms Expert, for primary obstetrical care & delivery MFM [...] * Thank you very much for requesting [facility] participation in her obstetrical care * Findings were explained & questions were addressed & precautions were given to patient * U/S does not detect all structural, genetic & functional hkzutdmq-ntlrp-inj cental abnormalities * Telemedicine services were performed for this U/S examination & MFM consultation Patient's identity was confirmed at the [facility] office Appropriateness of the telehealth consult was confirmed Informed consent for telemedicine services was obtained & scanned into EMR Modality was secure interactive audio-video session using [employer] Patient site location was our [facility] & nurse presenter was A Bernice Distant site provider was Ortiz Pereira MD & location was home office New consult = 60 minutes total, including record review & counseling & coordination of care Comment ======== U/S cannot detect all structural, genetic, or functional , placental, or maternal abnormalities Follow-up ======== U/S in 4 weeks Coding ====== Procedures 66174: US Preg Uterus Detailed 93221: US Preg Uterus Transvaginal Faveous PACS Anatomical Region Laterality Modality Other 09/06/2024 1:49 PM CDT us Wilmar Casas MD [facility] ORDERABLES Edited Resul t - Final from Last 3 Months Insurance [facility] Care Teams Step Finisher Relationship Specialty Start Date End Date Unknown, Provider PCP - General 09/06/24
--- OUTSIDE RECORDS SUMMARY | 2024-09-16 19:19 | XMS_ITS | Clinical Summary ---
Author Organization [facility] Address [address] [place] [id number] Care Team Providers Care High Value Associate Name Role Phone Zak Arauz MD Primary Care Provider Allergies No known active allergies Medications acetaminophen (TYLENOL) 500 mg tablet Take 2 tablets (1,000 mg total) by mouth every 6 (six) hours as needed for pain 30 tablet 3 07/02/19 23 Active 28 mg iron- 800 mcg tablet Take 1 tablet by mouth daily 07/06/19 23 Active budesonide-formote roL (SYMBICORT) 80-4.5 mcg/actuation inhaler Inhale 2 puffs 2 (two) times a day Rinse mouth with water after use. Do not swallow. 1 each 1 09/10/19 25 Active albuterol HFA (PROVENTIL HFA,VENTOLIN HFA,PROAIR HFA) 90 mcg/actuation inhaler Inhale 2 puffs Activ e fluticasone propionate (FLOVENT HFA) 110 mcg/actuation inhaler Inhale 1 puff 2 (two) times a day Active fluticasone propionate (FLONASE) 50 mcg/actuation nasal spray Administer 1 spray into each nostril daily 05/25/19 25 Active lidocaine (LIDODERM) 5 % Place 1 patch on the skin daily 09/09/19 25 Active nicotine (NICODERM CQ) [address] 1 patch on the skin daily 05/30/19 25 Active ondansetron ODT (ZOFRAN-ODT) [address] 1 TABLET ON TONGUE AND LET DISSOLVE EVERY 6 HOURS NEEDED, FOR NAUSEA. 05/25/19 25 Active M-Bianca Plus 27 mg iron- 1 mg tablet Take 1 tablet by mouth daily 07/29/19 25 Active vitamin B-6 25 mg tablet Take 1 tablet (25 mg total) by mouth 3 (three) times a day 05/30/19 25 Active ferrous sulfate 325 mg (65 mg of elemental iron) tabletIndications: Iron Deficiency Anemia Take 1 tablet (325 mg total) by mouth 2 (two) times a day 025 Discontin ued(Stop Taking at Discharge ) hydrocortisone (ANUSOL-HC) 2.5 % rectal cream APPLY SPARINGLY TO AFFECTED AREA 2 TO 4 TIMES A DAY 03/18/19 23 025 Discontin ued(Stop Taking at Discharge ) cyclobenzaprine (FLEXERIL) 10 mg tablet Take 1 tablet (10 mg total) by mouth 3 (three) times a day as needed for muscle spasms 30 tablet 07/03/19 025 Discontin ued(Stop Taking at Discharge ) azithromycin (ZITHROMAX) 250 mg tablet 09/03/19 23 025 Discontin ued(Stop Taking at Discharge ) doxycycline monohydrate (MONODOX) 100 mg capsule 09/03/19 23 025 Discontin ued(Stop Taking at Discharge ) SUMAtriptan (IMITREX) 100 mg tablet 08/29/19 23 025 Discontin ued(Stop Taking at Discharge ) famotidine (PEPCID) 20 mg tabletIndications: Heartburn,gastroes ophageal reflux disease Take 1 tablet (20 mg total) by mouth 2 (two) times a day 60 tablet 09/11/19 23 025 Discontin ued(Stop Taking at Discharge ) ondansetron (ZOFRAN) 4 mg tablet Take 1 tablet (4 mg total) by mouth every 8 (eight) hours as needed for nausea or vomiting 60 tablet 3 10/08/19 23 025 Discontin ued(Stop Taking at Discharge ) naproxen (NAPROSYN) 500 mg tablet Take 1 tablet (500 mg total) by mouth 2 (two) times a day with meals 30 tablet 10/09/19 23 025 Discontin ued(Stop Taking at Discharge ) polyethylene glycol (MIRALAX) 17 gram packetIndications: constipation Take 1 packet (17 g total) by mouth daily 30 packet 12/01/19 23 025 Discontin ued(Stop Taking at Discharge ) Active Problems Problem Noted Date Diagnosed Date [...] # Disposition: Follow up task sent to [facility] scheduling pool. Desires discharge home today. [...] (05/14/2022): When she was seen in the [facility] there was concern for a dropped beats and a arrhythmia and she was referred to M. A arrhythmia was also heard in her primary OB office. 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 05/13: Formal ultrasound with MFM - no evidence of arrhythmia 05/13: Formal echo: normal cardiac anomaly but with [...] 05/12/2022 Overview (06/23/2022): [facility] RN: Mariah Rodriguez - [phone] [x] Full [facility] Care; [x] Blue Team Referring Provider: [facility] - Hamida Morales [x] Dating Criteria: L [...] Vaccine: 3rd Tri Labs: [x] CBC/HIV/RPR: H&H: 12/07.8, RPR [NR], HIV [neg] [x] GBS: Negative [...] pt considering [] Consents signed: [x] MOC: hIUD [x] Method of feeding: breast [x] Education Sales Consultant: [x] PP Depression Discussed: plan reviewed and [...] Strict hospital precautions reviewed Cardiac murmur 04/30/2022 Palpitations 04/30/2022 Assessment & Plan (09/14/2024 11:08 AM CDT): The patient notes several years of palpitations. She has previously had an unremarkable workup. She does note some of her current episodes of palpitations are different than her previous episodes. I have recommended a 7 day Holter monitor for further evaluation. I have told the patient this will also evaluate heart rate variability. She will follow up pending these results. It is stressed her the importance of staying hydrated and limiting caffeine. Also recommended limiting stress and stable sleep habits. I discussed with the patient I would avoid medications that would slow down her palpitations as these medications may affect her baby's heart rate. Orders: Ambulatory referral to Cardiology Extended/Correction Holter Patch (>48 hours up to 7 days); Future Sleep apnea 04/30/2022 Estimated Date of Delivery Comme nts Yes 01/14/2025 Based on last me nstrual period of 04/09/2024 Resolved Problems Problem Noted Date Diagnosed Date Resolved Date with 35 completed weeks gestation 10/22/2020 05/18/2022 Encounters Date Type Department Care Team Description 09/14/2024 11:00 AM CDT Ancillary Procedure [facility] Cardiology [address] [place] [address] Palpitations 09/14/2024 10:00 AM CDT Office Visit [facility] Medical [facility] Cardiology [address] [place] [address] Vania Kong MD Palpitations 09/08/2024 9:34 PM CDT - 09/09/2024 4:05 AM CDT Hospital Encounter [address] [phone] Sarahi Costa MD Discharge Disposition: Discharge to home or self care 09/08/2024 8:54 PM CDT - 09/08/2024 10:00 PM CDT Emergency [facility] Emergency Department [address] [place] [address] Discharge Disposition: Still a patient from Last 3 Months Immunizations Immunization Administration Dates Next Due MMR [...] often do you attend chur ch or moravian services? More than 4 times per year [...] care, and heating? Not hard at all 09/08/2024 Hunger Vital Sign Answer Date Recorded Within [...] from medical appointments or from getting medications? No 02/2024 In the past 12 months, has l ack of transportation kept you from meetings, work, or from getting things needed for daily living? No 09/08/2024 Housing Stability Vital Sign Answer Mathieu e [...] in a halfway (including now)? No 06/30/2022 [place] Depression Scale Answer Date Recorded [place] Depression Scale Total 3 09/03/2022 The thought of harming myself has occurred to me . Never 09/03/2022 Personal Safety Answer Date Recorded Have you ever been in or are you currently in a harmful physical or emotional relationship or is someone making you feel afraid or unsafe? Denies 09/08/2024 Estimated Date of Delivery Comme nts Yes 01/14/2025 Based on last me nstrual period of 04/09/2024 Sex and Gender Information Value Date Recorded Sex Assigned at Not on file Legal Sex Female 2:54 PM MANAGER POLICY Gender Identity Not on file Sexual Orientation Not on file Obstetrics History Para Term AB IAB SAB Ectopic Multiple Livin g Live Births 4 2 2 0 1 0 2 2 Date Outcome GA Total Labor Labor/2nd/3rd Weight Sex Type Anes PTL Nataliia A1 A5 Name Clin AB 2020 Term 40w 0d 3.232 kg (7 lb 2 oz) F Vag-Sp ont Epidur al N Livin g Complications:None Delivery Location:[facility] 2022 Term 39w 6d 21h 40m 21h 21m/0h 12m/0h 07m 4.29 kg (9 lb 7.3 oz) F Vagina l Combin ed Spinal /Epidu ral N Livin g 3 [address] ,[address] NELA [place] , Carson Lauren MD Complications:Shoulder Dysto per Delivery Location:[facility] Main C ampus ([facility]) Current Summary Episode Dates Number of Fetuses Estimated Date of Delivery 09/08/2024 - Present (2024) 01/14/2025 (set by Choco Rodirguez NP on 09/09/2024 based on Last Menstrual Period on 04/09/2024) Dating Summary Based On NENA GA Diff Last Menstrual Period on 04/09/2024 01/14/2025 Working Ultrasound on 09/06/2024 01/11/2025 +3d GA:21w6d Vitals Date GA Fund Present FHR Mvmt BP Weight Edema Alb Glu Ket Dil/ Eff/Sta 21w6d Inpatient data not displayed here. See encounter summary. Last Filed Vital Signs Vital Sign Reading Time Taken Comments Blood Pressure 110/50 09/14/2024 10:04 AM CDT Pulse 90 09/14/2024 10:04 AM CDT Temperature 36.7 C (98 F) 09/08/2024 9:57 PM CDT Respiratory Rate 18 09/14/2024 10:04 AM CDT Oxygen Saturation 99% 09/14/2024 10:04 AM CDT Inhaled Oxygen Concentration - - Weight 62.1 kg (137 lb) 09/14/2024 10:04 AM CDT Height 162.6 cm (5' 4) 09/14/2024 10:04 AM CDT Body Mass Index 23.52 09/14/2024 10:04 AM CDT Plan of Treatment Upcoming Encounters Date Type Department Care Team (Late st Contact Info) Description 01/14/2025 9:44 PM MANAGER POLICY Hospital Encounter [address] [phone] Sarahi Costa MD [address] [place] [address] Health Maintenance Due Date Last Done Comments [...] Procedure Name Priority Date/Time Associated Diagnosis Comments XR CHEST 1 VIEW IP Routine 09/08/2024 11:22 PM CDT RESPIRATORY PATHOGEN PANEL STAT 09/08/2024 10:57 PM CDT PRO B-TYPE NATRIURETIC PEPTIDE STAT 09/08/2024 10:52 PM CDT PROTEIN / CREATININE RATIO, URINE, RANDOM STAT 09/08/2024 10:52 PM CDT POCT URINALYSIS (CLINITEK) Routine 09/08/2024 10:47 PM CDT TROPONIN I HIGH-SENSITIVITY STAT 09/08/2024 10:39 PM CDT EGFR STAT 09/08/2024 10:37 PM CDT COMPREHENSIVE METABOLIC PANEL STAT 09/08/2024 10:37 PM CDT CBC WITHOUT DIFFERENTIAL STAT 09/08/2024 10:37 PM CDT ECG 12-LEAD STAT 09/08/2024 9:51 PM CDT PEAK FLOW TEST Routine 09/08/2024 9:45 PM CDT N. GONORRHOEAE/C. TRACHOMATIS AMPLIFICATION STAT 02/05/2023 10:21 AM MANAGER POLICY from Last 3 Months or Most Recently Relevant to Health Maintenance Results * XR Chest 1 View (09/08/2024 11:22 PM CDT) Anatomical Region Laterality Modality Body, Chest N/A Computed Radiogr aphy 09/09/2024 1:23 AM CDT Impressions 09/09/2024 12:28 PM CDT Comparison is made to prior chest radiograph dated 05/29/2023. There is no pulmonary consolidation. No pleural effusion or pneumothorax. The cardiac mediastinal contours are normal. Dictated by: Thais Lim MD, PhD. The radiology attending physician has personally reviewed this study, and had reviewed and/or edited this written report and agrees with it. Electronically signed by: Yaw Mcintosh M.D. Narrative 09/09/2024 12:28 PM CDT EXAMINATION: 1 view chest radiograph Procedure Note Yaw Mcintosh MD - 09/09/2024 EXAMINATION: 1 view chest radiograph IMPRESSION: Comparison is made to prior chest radiograph dated 05/29/2023. There is no pulmonary consolidation. No pleural effusion or pneumothorax. The cardiac mediastinal contours are normal. Dictated by: Thais Lim MD, PhD. The radiology attending physician has personally reviewed this study, and had reviewed and/or edited this written report and agrees with it. Electronically signed by: Yaw Mcintosh M.D. us Choco Rodriguez MEASUREMENT TECHNICIAN IMG XR PROCEDURES Clary l Result * Respiratory pathogen panel Nasopharyngeal (09/08/2024 10:57 PM CDT) Pathologist [facility] Influenza A RNA Not Detected Not Detected Influenza B RNA Not Detected Not Detected [facility] RSV RNA Not Detected Not Detected [facility] COVID-19 RNA Not Detected Not Detected [facility] Coronavirus 229E RNA Not Detected Not Detected [facility] Coronavirus HKU1 RNA Not Detected Not Detected [facility] Coronavirus NL63 RNA Not Detected Not Detected [facility] Coronavirus OC43 RNA Not Detected Not Detected [facility] Adenovirus DNA Not Detected Not Detected [facility] Metapneumovirus RNA Not Detected Not Detected [facility] Rhinovirus/Enterov irus RNA Not Detected Not Detected [facility] Parainfluenza 1 RNA Not Detected Not Detected [facility] Parainfluenza 2 RNA Not Detected Not Detected [facility] Parainfluenza 3 RNA Not Detected Not Detected [facility] Parainfluenza 4 RNA Not Detected Not Detected [facility] B. pertussis DNA Not Detected Not Detected [facility] B. parapertussis DNA Not Detected Not Detected [facility] C. pneumoniae DNA Not Detected Not Detected [facility] M. pneumoniae DNA Not Detected Not Detected [facility] Nasopharyngeal 09/08/2024 10 :57 PM CDT 09/08/2024 11:04 PM CDT Narrative [facility] - 09/08/2024 11:56 PM CDT Is the Patient experiencing symptoms consistent with COVID?->Unknown Surveillance testing for transplant patient?->No Interpretive Data The [employer] FilmArray Respiratory Panel (RP2.1) assay is a multiplexed real-time PCR based nucleic acid test capable of simultaneous qualitative detection and identification of multiple respiratory viral and bacterial nucleic acids, including SARS Coronavirus 2 (the causative agent of COVID-19). The following bacteria, viruses and virus subtypes can be identified using the FilmArray RP2.1 assay: Bordetella pertussis, Bordetella parapertussis, Chlamydia pneumoniae, Mycoplasma pneumoniae, Adenovirus, SARS Coronavirus 2, seasonal coronaviruses (Coronavirus HKU1, Coronavirus NL63, Coronavirus 229E, and Coronavirus OC43), Influenza A, Influenza A subtype H1, Influenza A subtype H3, Influenza A subtype 2009 H1, Influenza B, Metapneumovirus, Parainfluenza 1, Parainfluenza 2, Parainfluenza 3, Parainfluenza 4, RSV, Rhinovirus/Enterovirus. Due to the genetic similarity between human Rhinovirus and Enterovirus, the FilmArray RP2.1 assay cannot reliably differentiate them. Coronavirus OC43 may cross-react with some isolates of Coronavirus HKU1. A dual positive result may be due to cross-reactivity or may indicate a co- infection. The detection and identification of specific viral and bacterial nucleic acids from individuals exhibiting signs and symptoms of a respiratory infection aids in the diagnosis of respiratory infection if used in conjunction with other clinical and epidemiological information. The results of this test should not be used as the sole basis for diagnosis, treatment, or other management decisions. Negative results in the setting of a respiratory illness may be due to infection with pathogens that are not detected by this test. Positive results do not rule out infection/co-infection with other organisms. The agent(s) detected by the FilmArray RP2.1 may not be the definite cause of disease. Additional testing (lab, imaging, etc.) may be necessary when evaluating a patient with possible respiratory tract infection. The FilmArray RP2.1 assay has FDA clearance for testing of MEASUREMENT TECHNICIAN swabs. The performance of additional specimen types has been assessed by the performing laboratory. The performance characteristics of this assay have been determined by [facility] Infectious Disease [facility]. Current interpretive data was last revised on 21. Choco Rodriguez MEASUREMENT TECHNICIAN LAB MICROBIOLOGY - GEN ERAL ORDERABLES Final Result [facility] [address] [facility] Department [place] [address] * Pro B-type natriuretic peptide (09/08/2024 10:52 PM CDT) NT-proBNP <50 <=300 pg/mL Comment: Interpretive Comments: A. Dyspnea in Acute Care Setting All Ages: < 300 pg/ml, acute heart failure unlikely. < 50 yrs: 300 - 450 pg/ml, further investigation warranted. > 450 pg/ml, acute heart failure likely. 50 - 74 yrs: 300 - 900 pg/ml, further investigation warranted. > 900 pg/ml, acute heart failure likely . > or = 75 yrs: 450 - 1800 pg/ml, further investigation warranted. > 1800 pg/ml, acute heart failure likely. B. Non-acute Setting < 75 yrs < 125 pg/ml, rules out heart failure. > or = 125 pg/ml, further investigation warranted. > or = 75 yrs < 450 pg/ml, rules out heart failure. > or = 450 pg/ml, further investigation warranted. - Knowledge of each individual patient's NT-proBNP range may be more useful than using similar cut-points for every patient. Please note that marked elevations in NT-proBNP levels may be observed in state other than Left Ventricular Congestive Failure, including: acute coronary syndromes, right heart strain/failure (including pulmonary embolism and cor pulmonale), critical illness, renal failure, as well as advanced age. - References: 1. Jani TOMAS et.al. Eur Heart J. 2006:27:330-337. 2. Saurav RW, Dre HESS. J. AM Carolann Cardiol: Cardiovasc Imag. 2009;2: 216- 225. Interpretive Data Last Revised Date: 2017. Blood 09/08/2024 10:5 2 PM CDT 09/08/2024 11:12 PM CDT Choco Rodriguez MEASUREMENT TECHNICIAN LAB BLOOD ORDERABLES F inal Result [facility] [address] [facility] Department [place] [address] * Protein / creatinine ratio, urine, random (09/08/2024 10:52 PM CDT) Protein, ur, quant 8.1 mg/dL Comment: Interpretive Data No reference range established. Current interpretive data was last revised 2018. Creatinine Ur 67.1 mg/dL [facility] Comment: Interpretive Data No reference range established. Current interpretive data was last revised 2018. Protein/creatinin e ratio 120.7 0.0 - 180.0 mg/g CR [facility] Urine (Urine, Clean Catch) 09/08/2024 10:52 PM CDT 09/08/2024 11:12 PM CDT us Choco Rodriguez NP LAB URINE ORDERABLES F inal Result [facility] Department [place] [address] * (ABNORMAL) POCT urinalysis (Clinitek) (09/08/2024 10:47 PM CDT) Color, ur, POC Yellow Yellow Clarity, UA, POC Clear Clear [facility] Glucose, ur, POC Trace(A) Negative [facility] Bilirubin, ur, POC Negative Negative [facility] Ketones, ur, POC Negative Negative [facility] Specific gravity, ur, POC 1.020 1.010 - 1.025 [facility] Blood, ur, POC 1+(A) Negative [facility] pH, ur, POC 7.0 [facility] Comment: Interpretive Data Urine pH is affected by diet, medications, systemic acid-base disturbances, and renal tubular function. pH may affect urinary stone formation. For example, urine pH below 6.0 may help reduce the tendency for calcium phosphate stones and pH greater than 6.0 may reduce the tendency for uric acid stone formation. Source: [facility]. Last Revised Date: 02-18-2017 Protein, ur, POC Negative Negative [facility] Urobilinogen, ur, POC 0.2 mg/dL mg/dL [facility] Nitrites, ur, POC Negative Negative [facility] Leukocyte esterase, ur, POC 1+(A) Negative [facility] Urine 09/08/2024 10:4 7 PM CDT 09/08/2024 10:47 PM CDT us Sarahi Costa MD LAB POCT ORDERABLES - KELLY CE Final Result Performing Organization Address [facility]/ZIP Co de Phone Number [facility] Department [place] [address] * Troponin I high-sensitivity (09/08/2024 10:39 PM CDT) Trop I hs <4 <=17 ng/L Comment: Interpretive Data For further hscTnI resources including the diagnostic algorithm and an aid in interpretation, copy and paste this link: https://bjhlab.testcatalog.org/show/hsTrop-[email or web address] Current Interpretive Data last revised 2019. Blood 09/08/2024 10:3 9 PM CDT 09/08/2024 10:55 PM CDT Choco Rodriguez MEASUREMENT TECHNICIAN LAB BLOOD ORDERABLES F inal Result [facility] [address] [facility] Department [place] [address] * eGFR (09/08/2024 10:37 PM CDT) eGFR >90 >=60 mL/min/1. 73 m2 Comment: Interpretive Data Reference Interval Normal >/= 90 mL/min/1.73m2 Mildly decreased* 60 - 89 mL/min/1.73m2 Mildly to moderately decreased 45 - 59 mL/min/1.73m2 Moderately to severely decreased 30 - 44 mL/min/1.73m2 Severely decreased 15 - 29 mL/min/1.73m2 Kidney Failure < 15 mL/min/1.73m2 *Relative to young adult level Estimated glomerular filtration rate is determined by the 2020 CKD-EPI equation recommended by the National Kidney Foundation (A Unifying Approach to GFR Estimation: Recommendations of the NKF-ASK Task Force on Reassessing the Inclusion of Race in Diagnosing Kidney Disease, JASN 2020). The CKD-EPI equation should not be used for patients with unstable renal function and has not been validated in children and those over 70. Current interpretive data was last reviewed 2020. Blood 09/08/2024 10:3 7 PM CDT 09/08/2024 10:55 PM CDT Choco Rodriguez MEASUREMENT TECHNICIAN LAB BLOOD ORDERABLES F inal Result Performing Organization Address [facility] Co de Phone Number [facility] Department [place] [address] * (ABNORMAL) CBC without differential (09/08/2024 10:37 PM CDT) [facility] WBC 10.27(H) 3.80 - 9.90 K/cumm Hgb 11.1(L) 11.9 - 15.5 g/dL [facility] Hct 32.0(L) 35.6 - 45.5 % [facility] Plt 219 150 - 400 K/cumm [facility] MPV 11.2 9.1 - 12.3 fL [facility] RBC 3.62(L) 3.90 - 5.20 M/cumm [facility] MCV 88.4 81.3 - 96.4 fL [facility] MCH 30.7 27.1 - 33.3 pg [facility] MCHC 34.7 32.3 - 35.7 g/dL [facility] RDW CV 14.4 11.1 - 14.9 % [facility] RDW SD 46.7 35.7 - 48.1 fL [facility] NRBC abs 0.00 0.00 - 0.01 K/cumm [facility] Blood 09/08/2024 10:3 7 PM CDT 09/08/2024 10:55 PM CDT Choco Rodriguez MEASUREMENT TECHNICIAN LAB BLOOD ORDERABLES F inal Result Performing Organization Address [facility] Co de Phone Number [facility] Department [place] [address] * (ABNORMAL) Comprehensive metabolic panel (09/08/2024 10:37 PM CDT) [facility] Sodium 139 135 - 145 mmol/L Potassium, pl 3.3 3.3 - 4.9 mmol/L [facility] Chloride 105 97 - 110 mmol/L [facility] CO2 25 22 - 32 mmol/L [facility] Anion gap 9 2 - 15 mmol/L [facility] BUN 5(L) 6 - 25 mg/dL [facility] Creatinine 0.49(L) 0.60 - 1.10 mg/dL [facility] Glucose 85 70 - 199 mg/dL [facility] Comment: Interpretive Data Fasting glucose >/= 126 mg/dl is diagnostic for diabetes. Fasting is defined as no caloric intake for at least 8 hours. Fasting glucose between 100 mg/dl to 125 mg/dl is diagnostic of prediabetes. In a patient with classic symptoms of hyperglycemia or hyperglycemic crisis, a random glucose >/= 200 mg/dl is diagnostic for diabetes. In the absence of unequivocal hyperglycemia, results should be confirmed by repeat testing. The classification and Diagnosis of Diabetes Diabetes Care 2021; 46: S19-S40. Current interpretive data was last revised 2022. Calcium 9.1 8.5 - 10.3 mg/dL [facility] [facility] Bilirubin, total <0.2 0.1 - 1.2 mg/dL [facility] Protein, pl 7.1 6.5 - 8.5 g/dL [facility] Albumin 4.1 3.5 - 5.0 g/dL [facility] Alk phos 79 40 - 130 Units/L [facility] ALT 5(L) 7 - 45 Units/L [facility] AST 17 10 - 45 Units/L [facility] Blood 09/08/2024 10:3 7 PM CDT 09/08/2024 10:55 PM CDT Choco Rodriguez NP LAB BLOOD ORDERABLES F inal Result [facility] Department [place] [address] * ECG 12 lead (09/08/2024 9:51 PM CDT) Ventricular Rate EKG/Min 93 BPM [facility] Atrial Rate 93 BPM [facility] UT-Interval (MSEC) 140 ms [facility] QRS-Interval (MSEC) 80 ms [facility] QT-Interval (MSEC) 360 ms [facility] QTc 447 ms [facility] P [place] 49 degrees [facility] R [place] 67 degrees [facility] T [place] 31 degrees [facility] Diagnosis Normal sinus rhythm Possible Left atrial enlargement Borderline ECG When compared with ECG of 10-FEB-2023 22:22, No significant change was found Confirmed by OSIEL CARRILLO M.D ([id number]) on 09/11/2024 11:14:00 AM [facility] 09/08/2024 9:51 PM CDT 09/11/2024 11:14 AM CDT Choco Rodriguez NP ECG ORDERABLES Final Result [facility] * N. gonorrhoeae/C. trachomatis Amplification Urine (02/05/2023 10:21 AM MANAGER POLICY) C. trachomatis Not Detected Not Detected DEBBIE Comment:Testing performed by : [facility], [address] [place] [address]., [address] N. gonorrhoeae Not Detected Not Detected DEBBIE Comment: Interpretive Data This assay detects Chlamydia trachomatis and Neisseria gonorrhoeae by nucleic acid amplification testing (NAAT). This assay has been cleared by the [place] Food and Drug administration. The performance characteristics of this test have been verified by the [facility]. The performance characteristics of this test have not been evaluated in individuals less than 14 years of age. Current Interpretive Data last revised 2022. Testing performed by: [facility], [address] [place] [address]., [id number] Urine (None) 02/05/2023 10:2 1 AM MANAGER POLICY 02/05/2023 10:30 AM MANAGER POLICY Ana Paula ROMERO LAB MICROBIOLOGY - GENERAL ORDER RANDY Final Result DEBBIE [address] [facility] Department [place] [address] from Last 3 Months or Most Recently Relevant to Health Maintenance Insurance AETNA [facility] AETNA [facility] AETNA [facility] Advance Directives For more information, please contact: [phone] * Full Code (Latest Code Status on File) Date Activated Date Inactivated Comments 06/30/2022 12:39 AM 07/01/2022 8:58 PM * Full Code Date Activated Date Inactivated Comments 06/28/2022 9:29 PM 06/30/2022 12:39 AM Full CPR in case of cardiopulmonary arrest Care Teams High Value Associate Relationship Specialty Start Date End Date Zak Arauz MD [address] [address] PCP - General Internal Medicine 03/16/22
[2024-09-16 19:27] VITALS: BP 155/86; PULSE 123; RESP 20; O2SAT 100
[2024-09-16 19:30] VITALS: BP 158/85; PULSE 116; RESP 21; O2SAT 99
[2024-09-16 19:31] VITALS: BP 155/86; PULSE 121; RESP 21; TEMP 36.7; O2SAT 100
--- OUTSIDE RECORDS SUMMARY | 2024-09-16 21:24 | XMS_ITS | Clinical Summary ---
Author Organization [facility] Address [address] [place] [address] Care Team Providers Care Surgical Instrument Repair Specialist Name Role Phone Zak Arauz MD Primary [...] # Disposition: Follow up task sent to [facility] scheduling pool. Desires discharge home today. [...] risk , antepa rtum 05/12/2022 Overview (06/23/2022): [facility] RN: Mariah Rodriguez - [phone] [x] Full [facility] Care; [x] Blue Team Referring Provider: [facility] - Hamida Morales [x] Dating [...] hIUD [x] Method of feeding: breast [x] Restoration Technician: [x] PP Depression Discussed: plan reviewed and [...] heart rate. Orders: Ambulatory referral to Cardiology Extended/Residential Holter Patch (>48 hours up to 7 days); Future Sleep apnea 04/30/2022 Estimated Date of Delivery Comme nts Yes 01/14/2025 Based on last me nstrual period of 04/09/2024 Resolved Problems Problem Noted Date Diagnosed Date Resolved Date with 35 completed weeks gestation 10/22/2020 05/18/2022 Encounters Date Type Department Care Team Description 09/14/2024 11:00 AM CDT Ancillary Procedure [facility] Medical Group Cardiology [address] [place] [address] Palpitations 09/14/2024 10:00 AM CDT Office Visit [facility] Medical [facility] Cardiology [address] [place] [address] Vania Kong MD Palpitations 09/08/2024 9:34 PM CDT - 09/09/2024 4:05 AM CDT Hospital Encounter [address] [address] Sarahi Costa MD Discharge Disposition: Discharge to home or self care 09/08/2024 8:54 PM CDT - 09/08/2024 10:00 PM CDT Emergency [facility] Emergency Department [address] [place] [address] Discharge Disposition: Still a patient from Last [...] often do you attend chur ch or hoahaoism services? More than 4 times per year 06/30/2022 Do you belong to any clubs o r organizations such as samaritan groups, unions, fraternal or athletic groups, or [...] place to sleep or slept in a correction (including now)? 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 Gender Identity Not on file Sexual Orientation [...] Epidur al N Livin g Complications:None Delivery Location:[facility] 2022 Term 39w 6d 21h 40m 21h 21m/0h 12m/0h 07m 4.29 kg (9 lb 7.3 oz) F Vagina l Combin ed Spinal /Epidu ral N Livin g 3 [address] ,[address] NELA Parish , Carson Lauren MD Complications:Shoulder Dysto per Delivery Location:[facility] Main C ampus ([facility] 58LD) Current Summary Episode Dates Number of Fetuses Estimated Date of Delivery 09/08/2024 - Present (2024) 01/14/2025 (set by Choco Rodriguez NP on 09/09/2024 based on Last Menstrual [...] st Contact Info) Description 01/14/2025 9:44 PM PRODUCT SCIENTIST Hospital Encounter [address] [address] Sarahi Costa MD [address] [place] [address] Health Maintenance Due Date Last Done Comments [...] GONORRHOEAE/C. TRACHOMATIS AMPLIFICATION STAT 02/05/2023 10:21 AM PRODUCT SCIENTIST from Last 3 Months or Most Recently [...] signed by: Yaw Mcintosh M.D. us Choco oRdriguez PSYCH NURSE IMG XR PROCEDURES Clary l Result * Respiratory pathogen panel Nasopharyngeal (09/08/2024 10:57 PM CDT) Pathologist [facility] Influenza A RNA Not Detected Not Detected Influenza B RNA Not Detected Not Detected [facility] RSV RNA Not Detected Not Detected [facility] COVID-19 RNA Not Detected Not Detected [facility] Coronavirus 229E RNA Not Detected Not Detected [facility] Coronavirus HKU1 RNA Not Detected Not Detected [facility] Coronavirus NL63 RNA Not Detected Not Detected [facility] Coronavirus OC43 RNA Not Detected Not Detected [facility] Adenovirus DNA Not Detected Not Detected [facility] Metapneumovirus RNA Not Detected Not Detected [facility] Rhinovirus/Enterov irus RNA Not Detected Not Detected [facility] Parainfluenza 1 RNA Not Detected Not Detected [facility] Parainfluenza 2 RNA Not Detected Not Detected [facility] Parainfluenza 3 RNA Not Detected Not Detected [facility] Parainfluenza 4 RNA Not Detected Not Detected [facility] B. pertussis DNA Not Detected Not Detected [facility] B. parapertussis DNA Not Detected Not Detected [facility] C. pneumoniae DNA Not Detected Not Detected [facility] M. pneumoniae DNA Not Detected Not Detected [facility] Nasopharyngeal 09/08/2024 10 :57 PM CDT 09/08/2024 11:04 PM CDT Narrative [facility] - 09/08/2024 11:56 PM CDT Is the Patient experiencing symptoms consistent with COVID?->Unknown Surveillance testing for transplant patient?->No Interpretive Data The [employer] FilmArray Respiratory Panel (RP2.1) assay is a [...] assay has FDA clearance for testing of PSYCH NURSE swabs. The performance of additional specimen types has been assessed by the performing laboratory. The performance characteristics of this assay have been determined by [facility] Infectious Disease [facility]. Current interpretive data was last revised on 21. Choco Rodriguez PSYCH NURSE LAB MICROBIOLOGY - GEN ERAL ORDERABLES Final Result [facility] [address] [facility] Department [place] [address] * Pro B-type natriuretic peptide (09/08/2024 10:52 [...] CDT 09/08/2024 11:12 PM CDT Choco Rodriguez PSYCH NURSE LAB BLOOD ORDERABLES F inal Result [facility] Department [place] [address] * Protein / creatinine ratio, urine, random (09/08/2024 10:52 PM CDT) Protein, ur, quant 8.1 mg/dL Comment: Interpretive Data No reference range established. Current interpretive data was last revised 2018. Creatinine Ur 67.1 mg/dL [facility] Comment: Interpretive Data No reference range established. Current interpretive data was last revised 2018. Protein/creatinin e ratio 120.7 0.0 - 180.0 mg/g CR [facility] Urine (Urine, Clean Catch) 09/08/2024 10:52 PM CDT 09/08/2024 11:12 PM CDT us Choco Rodriguez NP LAB URINE ORDERABLES F inal Result [facility] Department [place] [address] * (ABNORMAL) POCT urinalysis (Clinitek) (09/08/2024 10:47 PM CDT) Color, ur, POC Yellow Yellow Clarity, UA, POC Clear Clear [facility] Glucose, ur, POC Trace(A) Negative [facility] Bilirubin, ur, POC Negative Negative [facility] Ketones, ur, POC Negative Negative [facility] Specific gravity, ur, POC 1.020 1.010 - 1.025 [facility] Blood, ur, POC 1+(A) Negative [facility] pH, ur, POC 7.0 [facility] Comment: Interpretive Data Urine pH is affected by diet, medications, systemic acid-base disturbances, and renal tubular function. pH may affect urinary stone formation. For example, urine pH below 6.0 may help reduce the tendency for calcium phosphate stones and pH greater than 6.0 may reduce the tendency for uric acid stone formation. Source: [facility] [employer]. Last Revised Date: 02-18-2017 Protein, ur, POC Negative Negative [facility] Urobilinogen, ur, POC 0.2 mg/dL mg/dL [facility] Nitrites, ur, POC Negative Negative [facility] Leukocyte esterase, ur, POC 1+(A) Negative [facility] Urine 09/08/2024 10:4 7 PM CDT 09/08/2024 10:47 PM CDT us Sarahi Costa MD LAB POCT ORDERABLES - KELLY CE Final Result Performing Organization Address [facility]/ZIP Co de Phone Number [facility] Department [place] [address] * Troponin I high-sensitivity (09/08/2024 10:39 PM CDT) Trop I hs <4 <=17 ng/L Comment: Interpretive Data For further hscTnI resources including the diagnostic algorithm and an aid in interpretation, copy and paste this link: https://bjhlab.testcatalog.org/show/hsTrop-1 Current Interpretive Data last revised 2019. Blood 09/08/2024 10:3 9 PM CDT 09/08/2024 10:55 PM CDT Choco Rodriguez PSYCH NURSE LAB BLOOD ORDERABLES F inal Result [facility] [address] [facility] Department [place] [address] * eGFR (09/08/2024 10:37 PM CDT) eGFR [...] CDT 09/08/2024 10:55 PM CDT Choco Rodriguez PSYCH NURSE LAB BLOOD ORDERABLES F inal Result Performing Organization Address City/[facility] Co de Phone Number [facility] Department [place] [address] * (ABNORMAL) CBC without differential (09/08/2024 10:37 PM CDT) [facility] WBC 10.27(H) 3.80 - 9.90 K/cumm Hgb 11.1(L) 11.9 - 15.5 g/dL [facility] Hct 32.0(L) 35.6 - 45.5 % [facility] Plt 219 150 - 400 K/cumm [facility] MPV 11.2 9.1 - 12.3 fL [facility] RBC 3.62(L) 3.90 - 5.20 M/cumm [facility] MCV 88.4 81.3 - 96.4 fL [facility] MCH 30.7 27.1 - 33.3 pg [facility] MCHC 34.7 32.3 - 35.7 g/dL [facility] RDW CV 14.4 11.1 - 14.9 % [facility] RDW SD 46.7 35.7 - 48.1 fL [facility] NRBC abs 0.00 0.00 - 0.01 K/cumm [facility] Blood 09/08/2024 10:3 7 PM CDT 09/08/2024 10:55 PM CDT Choco Rodriguez PSYCH NURSE LAB BLOOD ORDERABLES F inal Result Performing Organization Address [facility] Co de Phone Number [facility] Department [place] [address] * (ABNORMAL) Comprehensive metabolic panel (09/08/2024 10:37 PM CDT) [facility] Sodium 139 135 - 145 mmol/L Potassium, pl 3.3 3.3 - 4.9 mmol/L [facility] Chloride 105 97 - 110 mmol/L [facility] CO2 25 22 - 32 mmol/L [facility] Anion gap 9 2 - 15 mmol/L [facility] BUN 5(L) 6 - 25 mg/dL [facility] Creatinine 0.49(L) 0.60 - 1.10 mg/dL [facility] Glucose 85 70 - 199 mg/dL [facility] Comment: Interpretive Data Fasting glucose >/= 126 [...] 2022. Calcium 9.1 8.5 - 10.3 mg/dL [facility] Bilirubin, total <0.2 0.1 - 1.2 mg/dL [facility] Protein, pl 7.1 6.5 - 8.5 g/dL [facility] Albumin 4.1 3.5 - 5.0 g/dL [facility] Alk phos 79 40 - 130 Units/L [facility] ALT 5(L) 7 - 45 Units/L [facility] AST 17 10 - 45 Units/L [facility] Blood 09/08/2024 10:3 7 PM CDT 09/08/2024 10:55 PM CDT Choco Rodriguez NP LAB BLOOD ORDERABLES F inal Result [facility] [place] [address] * ECG 12 lead (09/08/2024 9:51 PM CDT) Ventricular Rate EKG/Min 93 BPM [facility] Atrial Rate 93 BPM [facility] MI-Interval (MSEC) 140 ms [facility] QRS-Interval (MSEC) 80 ms [facility] QT-Interval (MSEC) 360 ms [facility] QTc 447 ms [facility] P [place] 49 degrees [facility] R [place] 67 degrees [facility] T [place] 31 degrees [facility] Diagnosis Normal sinus rhythm Possible Left atrial enlargement Borderline ECG When compared with ECG of 10-FEB-2023 22:22, No significant change was found Confirmed by OSIEL CARRILLO M.D ([id number]) on 09/11/2024 11:14:00 AM [facility] 09/08/2024 9:51 PM CDT 09/11/2024 11:14 AM CDT Choco Rodriguez NP ECG ORDERABLES Final Result [facility] * N. gonorrhoeae/C. trachomatis Amplification Urine (02/05/2023 10:21 AM PRODUCT SCIENTIST) C. trachomatis Not Detected Not Detected DEBBIE Comment:Testing performed by : [facility], [address] [place] [address]., [address] N. gonorrhoeae Not Detected Not Detected DEBBIE Comment: Interpretive Data This assay detects Chlamydia trachomatis and Neisseria gonorrhoeae by nucleic acid amplification testing (NAAT). This assay has been cleared by the [place] Food and Drug administration. The performance characteristics of this test have been verified by the [facility]. The performance characteristics of this test have not been evaluated in individuals less than 14 years of age. Current Interpretive Data last revised 2022. Testing performed by: [facility], [address] [place] [address]., [id number] Urine (None) 02/05/2023 10:2 1 AM PRODUCT SCIENTIST 02/05/2023 10:30 AM PRODUCT SCIENTIST Ana Paula ROMERO LAB MICROBIOLOGY - GENERAL ORDER RANDY Final Result [facility] [address] Department [place] [address] from Last 3 Months or Most Recently Relevant to Health Maintenance Insurance AETNA [facility] A[facility]NA [facility] A[facility]NA [facility] Advance Directives For more information, please contact: [phone] * Full Code (Latest Code Status on File) Date Activated Date Inactivated Comments 06/30/2022 12:39 AM 07/01/2022 8:58 PM * Full Code Date Activated Date Inactivated Comments 06/28/2022 9:29 PM 06/30/2022 12:39 AM Full CPR in case of cardiopulmonary arrest Care Teams Surgical Instrument Repair Specialist Relationship Specialty Start Date End Date Zak Arauz MD [address] [address] PCP - General Internal Medicine 03/16/22
--- OUTSIDE RECORDS SUMMARY | 2024-09-16 21:24 | XMS_ITS | Clinical Summary ---
Author Organization [facility] Address [address] [place] [address] Care Team Providers Care Sail Cutter Name Role Phone Unknown, Provider Primary Care Provider Unavaila ble Source Comments [facility],non-owned Affiliates and Associated Physician Practices is amultiple site organization consisting of ambulatory clinics and hospital sitesin [place], [place], [place] and [place]. This disclosure is being madepursuant to the Care Everywhere program and may not contain all information available regarding this patient. Last updated 17.[facility] Allergies No known active allergies Medications * [...] - 09/06/2024 11:59 PM CDT Hospital Encounter 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 Para 2 [id number] 1. live 2020. Details: Vaginal delivery, full [...] Placenta: Placental site: anterior, no previa. Placental krvp-ra-apauoehx os distance 66 mm Umbilical cord: Cord [...] 1 lb 1 oz EFW by Hadlock ([id number]) Head / Face / Neck Biometry: CM [...] view. RVOT view. LVOT view. 3-vessel view. 7-yoggmy-nvwjtdf view. Situs. Bicaval view. Ductal arch view. [...] LMP & early U/S * Referred to [facility] for obstetrical U/S & request [...] opinion, I would advise: Multi-disciplinary care with: Angiography Nurse, for primary obstetrical care & delivery MFM [...] * Thank you very much for requesting [facility] participation in her obstetrical care * Findings were explained & questions were addressed & precautions were given to patient * U/S does not detect all structural, genetic & functional lygppddv-lvqob-oho cental abnormalities * Telemedicine services were performed for this U/S examination & MFM consultation Patient's identity was confirmed at the [facility] office Appropriateness of the telehealth consult was confirmed Informed consent for telemedicine services was obtained & scanned into EMR Modality was secure interactive audio-video session using [employer]Ganjiwang Patient site location was our [facility] & nurse presenter was A Bernice Distant site provider was Ortiz Pereira MD & location was home office New consult = 60 minutes total, including record review & counseling & coordination of care Comment ======== U/S cannot detect all structural, genetic, or functional , placental, or maternal abnormalities Follow-up ======== U/S in 4 weeks Coding ====== Procedures 30409: US Preg Uterus Detailed 05233: US Preg Uterus Transvaginal [employer] PACS Anatomical Region Laterality Modality Other 09/06/2024 1:49 PM CDT us Wilmar Casas MD [facility] ORDERABLES Edited Resul t - Final from Last 3 Months Insurance [facility] Care Teams Sail Cutter Relationship Specialty Start Date End Date Unknown, Provider PCP - General 09/06/24
--- OUTSIDE RECORDS SUMMARY | 2024-09-16 21:24 | XMS_ITS | Continuity of Care Document ---
Author Organization [facility] Address [address] [place] [address] Phone Care Team Providers Care Executive Secretary Name Role Phone Rufino WATTS, FACC, Tessa Unavailable Unavailab le Procedures Procedure Date ELECTROCARDIOGRAM REPORT Advance Directives Directive Yes / No Effective Date File Name No Information Encounters Encounter Description Practice Location Reason(s) For Visit Diagnoses Date Provider Providers Copied on Encounter [facility], [address] [place] [address], [id number], tel:[phone] [facility] No Information Rufino Zarate. [address] [place] [address], [id number], . tel:[phone] Referring Provider: Tessa Joy, [address] [place] [address], [place], [address]. tel:[phone] Family History Family Member Type Diagnosis Age At Onset No Information Payers Payer name Insurance type Covered democrat ID Authoriza tileo(s) [place] [id number] Social History Type Description Quantity Date Captured [...]
--- OUTSIDE RECORDS SUMMARY | 2024-09-16 21:24 | XMS_ITS | Clinical Summary ---
Author Organization [facility] Address [address] [place] [address] Care Team Providers Care Product Managent Intern Name Role Phone Unavailable Primary Care [...] SMEAR 2021 INFLUENZA VACCINE (#1) 2024 Insurance MEDICINE [facility] MEDICAID
== END 2024-09-16 22:07 | disposition left against medical advice (07) ==
DX: O26.892 Other specified pregnancy related conditions, second trimester (principal); R06.02 Shortness of breath; Z3A.23 23 weeks gestation of pregnancy
CPT/HCPCS: 99199

== ENCOUNTER 2024-10-05 23:12 | Emergency (ER) | payer OTHER, SELFPAY ==
--- OUTSIDE RECORDS SUMMARY | 2024-07-30 19:00 | XMS_ITS | Continuity of Care Document ---
Author Organization [facility] Address [address] [place] [phone] Phone Care Team Providers Care Vocational Ed Instructor Name Role Phone Rufino WATTS, FACC, Tessa Unavailable Unavailab le Procedures Procedure Date ELECTROCARDIOGRAM REPORT Advance Directives Directive Yes / No Effective Date File Name No Information Encounters Encounter Description Practice Location Reason(s) For Visit Diagnoses Date Provider Providers Copied on Encounter [facility], [address] [place] [address], [id number], tel:[phone] [facility] No Information Rufino Zarate. [address] [place] [address], [id number], . tel:[phone] Referring Provider: Tessa Joy, [address] [place] [address], [place], [address]. tel:[phone] Family History Family Member Type Diagnosis Age At Onset No Information Payers Payer name Insurance type Covered libertarian ID Authoriza tileo(s) [employer] MEDICA[employer] CI [id number] Social History Type Description Quantity Date Captured Comments Sex Female Smoking Status No Information Chief Complaint And Reason For Visit No Information Reason For Referral Reason For Referral No Information History Of Present Illness Encounter Date Complaint History Of Prese nt Illness No Information Functional Status Date Functional Assessmen t No Information Instructions Date Instruction Additional Infor mation No Information Assessments Type Assessment Date No Information Patient Care Teams Name Effective Dates (start - stop) Status Members No Information
--- NOTE | ~2024-10-05 | XR_ITS ---
EXAMINATION: XR chest 1V portable 10/06/2024 01:55 INDICATION: Chest pain PROCEDURE: AP portable chest COMPARISON: 09/08/2024 FINDINGS: The lungs are clear. The cardiomediastinal silhouette is within normal limits. There are no pleural effusions. There is no pneumothorax suspected. IMPRESSION: 1: NO ACUTE CARDIOPULMONARY DISEASE. Reviewed, dictated and finalized at location O.
--- OUTSIDE RECORDS SUMMARY | 2024-10-05 10:30 | XMS_ITS | Encounter Summary ---
Author Organization [facility] Address [address] [address] Care Team Providers Care Silverware Etcher Name Role Phone Unknown, Provider Primary Care Provider Unavaila ble Reason for Referral * (Routine) - Open Specialty Diagnoses / Procedures Referred By Contac t Referred To Contact Diagnoses 25 weeks gestation of (HCC) Encounter for follow-up ultrasound of anatomy (HCC) Cardiac disease in mother affecting , unspecified trimester (HCC) Tobacco smoking affecting , antepartum (HCC) Procedures Sonogram - Complete Wilmar Casas MD [address] [place] [address] [place] [address] Phone: tel: fax: Referral ID Status Reason Start Date Expiration Date Visits Re quested Visits Authorized [id number] Open 09/26/2024 09/26/2025 1 1 * (Routine) - Open Specialty Diagnoses / Procedures Referred By Arturo t Referred To Contact Diagnoses 25 weeks gestation of (HCC) Encounter for follow-up ultrasound of anatomy (HCC) Cardiac disease in mother affecting , unspecified trimester (HCC) Tobacco smoking affecting , antepartum (HCC) Procedures Sonogram - Complete Wilmar Casas MD [address] [place] [address] [place] [address] Phone: tel: fax: Referral ID Status Reason Start Date Expiration Date Visits Re quested Visits Authorized [id number] Open 09/26/2024 09/26/2025 1 1 Reason for Visit * Reason Comments Ultrasound Maternal Medicine * (Routine) - Open Specialty Diagnoses / Procedures Referred By Contac t Referred To Contact Diagnoses 25 weeks gestation of (HCC) Encounter for follow-up ultrasound of anatomy (HCC) Cardiac disease in mother affecting , unspecified trimester (HCC) Tobacco smoking affecting , antepartum (HCC) Procedures Sonogram - Complete Wilmar Casas MD [address] [facility] [place] [address] Phone: tel: fax: Referral ID Status Reason Start Date Expiration Date Visits Re quested Visits Authorized [id number] Open 09/26/2024 09/26/2025 1 1 Encounter Details Date Type Department Care Team (Latest Contact Info) Description 10/05/2024 10:30 AM CDT - 10/05/2024 10:31 AM CDT Hospital Encounter [facility] [address] [place] [address] Lucretia Sorenson MD [address] [facility] [address] [place] [address] Hanh Esquivel MD [address] [facility] [address] [place] [address] Discharge Disposition: Home or Self Care Social History Tobacco Use Types Packs/Day Years Used Date Smoking Tobacco: Every Day Cigarettes Smokeless Tobacco: Never Alcohol Use Standard Drinks/Week Comments Not Currently 0 (1 standard drink = 0.6 oz pur e alcohol) Estimated Date of Delivery Comme nts Yes 01/14/2025 Based on last me nstrual period of 04/09/2024 Sex and Gender Information Value Date Recorded Sex Assigned at Not on file 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 Gender Identity Not on file Sexual Orientation Not on file documented as of this encounter Medications at Time of Discharge albuterol HFA (Proventil; Ventolin; Proair) 108 (90 Base) MCG/ACT inhaler INHALE 2 PUFFS BY MOUTH EVERY 6 HOURS NEEDED FOR SHORTNESS OF BREATH amoxicillin-clav ulanate (Augmentin) 875-125 MG tablet Take 1 (one) tablet by mouth 09/29/2024 cephalexin (Keflex) 500 MG capsule TAKE 1 ORAL CAPSULE 4 TIMES A DAY X 7 DAYS 09/02/2024 clindamycin (Cleocin) 300 MG capsule TAKE 1 CAPSULE BY MOUTH EVERY 6 HOURS FOR 7 DAYS 09/26/2024 ferrous sulfate 325 (65 FE) MG tablet Take 1 (one) tablet by mouth once daily OMEPRAZOLE PO TAKE 1 CAPSULE BY MOUTH EVERY DAY FOR 30 DAYS FOR ACID REFLUX MV & Min w/FA-DHA ( GUMMIES PO) documented as of this encounter Plan of Treatment Upcoming Encounters Date Type Department Care Team (Late st Contact Info) Description 10/30/2024 1:00 PM CDT Appointment [facility] [address] [place] [address] documented as of this encounter Procedures Procedure Name Priority Date/Time Associated Diagnosis Comments SONOGRAM - COMPLETE Routine 10/05/2024 1 0:39 AM CDT 25 weeks gestation of (HCC) Encounter for follow-up ultrasound of anatomy (HCC) Cardiac disease in mother affecting , unspecified trimester (HCC) Tobacco smoking affecting , antepartum (HCC) documented in this encounter Results * Sonogram - Complete (10/05/2024 10:39 AM CDT) Linked Results Indication ======== Abnormal finding on previous ultrasound pericardial fluid and dilated gallbladder Maternal cardiac disease, congenital, complicating , heart palpitations and fatigue unspecified Smoking (tobacco) complicating History ====== OB History 4. Para 2 [id number] 1. live 2020. Details: Vaginal delivery, full term 2. live 2022. Details: Vaginal delivery, full term, Shoulder dystocia 3. miscarriage 2023 Lab Tests Test Date Result NIPT Low risk, Male Maternal Assessment Physical Exam Height 163 cm, 5 ft 4 in. Weight 64 kg, 142 lb. Initial weight 62 kg, 137 lb. BMI 24.37 kg/m . Initial BMI 23.52 kg/m . Weight gain 2 kg, 5 lb Method ====== Transabdominal ultrasound. View: Sufficient ========= Pryor . Number of fetuses: 1 Dating ====== Date Details Gest. age NENA LMP 04/09/2024 25 w + 4 d 01/14/2025 Stated NENA 25 w + 4 d 01/14/2025 U/S 10/05/2024 based upon AC, BPD, Femur, HC 26 w + 2 d 01/09/2025 Assigned dating based on the LMP, selected on 09/06/2024 25 w + 4 d 01/14/2025 General Evaluation Cardiac activity present. FHR 156 bpm. movements: visualized. Presentation: breech Placenta: Placental site: anterior Umbilical cord: Cord vessels: 3 vessel cord. Insertion site: normal insertion Amniotic fluid: Amount of AF: normal. MVP 6.5 cm Biometry BPD 63.6 mm 25w 5d 47% Hadlock HC 237.1 mm 25w 5d 33% Hadlock AC 235.0 mm 27w 6d 95% Hadlock Femur 47.1 mm 25w 5d 40% Hadlock Humerus 44.0 mm 26w 1d 64% Ady HC / AC 1.01 Weight Calculation: EFW 980 g 86% Hadlock EFW (lb,oz) 2 lb 3 oz EFW by Hadlock ([id number]) overall normal range, but the AC is >90% Growth Overview Exam date GA BPD (mm) HC (mm) AC (mm) FL (mm) HL (mm) EFW (g) 09/06/2024 21w 3d 50.1 38% 194.8 52% 180 85% 36.4 45% 35.8 79% 482 80% 10/05/2024 25w 4d 63.6 47% 237.1 33% 235 95% 47.1 40% 44 64% 980 86% Anatomy The following structures appear normal: Heart / Thorax Aortic arch view. Extremities / Skeleton Hands. Left lower leg. Left foot. The following structures were documented previously: Head / Neck Cranium. Lateral ventricles. Choroid plexus. Midline falx. Cavum septi pellucidi. Cerebellum. Cisterna magna. Thalami. Nuchal fold. Face Lips. Profile. Nose. Nasal bone. Orbits. Heart / Thorax 4-chamber view. RVOT view. LVOT view. 3-vessel view. 4-bhiowl-buboyxp view. Situs. Bicaval view. Ductal arch view. Great vessels. Right lung. Left lung. Diaphragm. Abdomen Cord insertion. Stomach. Kidneys. Bladder. Bowel. Genitals. Spine Cervical spine. Thoracic spine. Lumbar spine. Sacral spine. Extremities / Skeleton Arms. Legs. Feet. Right lower leg. Right foot. sex: male. Impression ========= Single, live, intrauterine at 25w 4d The size is overall normal range, but the AC is >90% . The amniotic fluid volume is normal. No major malformations were seen within the limitations of ultrasound. A tiny pericardial effusion is seen. The gallbladder is elongated. Comment ======== ultrasound alone cannot detect all structural, genetic, or functional , placental, or maternal abnormalities Follow-up ======== ECHO as planned. Growth US in 4 weeks, follow up gall bladder at that time. Correlate growth with maternal glucose screening. Coding ====== Procedures 40809: US Preg Uterus Follow Up [employer] PACS Anatomical Region Laterality Modality Other 10/05/2024 10:3 9 AM CDT Wilmar Casas MD [facility] ORDERABLES Edited Resul t - Final documented in this encounter Visit Diagnoses Diagnosis 25 weeks gestation of (HCC)- Primary state, incidental Encounter for follow-up ultrasound of anatomy (HCC) Cardiac disease in mother affecting , unspecified trimester (HCC) Tobacco smoking affecting , antepartum (HCC) documented in this encounter Care Teams Silverware Etcher Relationship Specialty Start Date End Date Unknown, Provider PCP - General 09/06/24 documented as of this encounter
--- OUTSIDE RECORDS SUMMARY | 2024-10-05 10:32 | XMS_ITS | Encounter Summary ---
Author Organization [facility] Address [address] [facility] [place] [address] Care Team Providers Care Lap Polisher Name Role Phone Unknown, Provider Primary Care Provider Unavaila ble Reason for Visit * Reason Comments Ultrasound Maternal Medicine Encounter Details Date Type Department Care Team (Latest Contact Info) Description 10/05/2024 10:32 AM CDT - 10/05/2024 11:59 PM CDT Hospital Encounter [facility] [address] [place] [address] Lucretia Sorenson MD [address] [address] Hanh Esuqivel MD [address] [facility] [address]TH [place] [address] Discharge Disposition: Home or Self [...] on file 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 ferrous sulfate 325 (65 FE) MG tablet Take 1 (one) tablet by mouth once daily OMEPRAZOLE PO TAKE 1 CAPSULE BY MOUTH EVERY DAY FOR 30 DAYS FOR ACID REFLUX MV & Min w/FA-DHA ( GUMMIES PO) documented as of this encounter Progress Notes * Abigail Queen RN - 10/05/2024 11:27 AM CDT Co-Manage with [facility] Patient here at 25w4d for ultrasound and follow up provider visit. Denies leaking fluid or vaginal bleeding. Reports frequent headaches throughout this ; sometimes relieved with tylenol. Denies visual changes or RUQ pain. Reports feeling movement. States she feels frequent cramping, none today. Home medications reviewed; vital signs WNL. Urine dip today = no sample left See note per Sixto Robles NP for further plan of care. [facility] follow up: 4 weeks BP 111/62 Pulse 101 Wt 64.4 kg (142 lb) * Ryann Robles APRN-SPENCER - 10/05/2024 11:03 AM CDT [facility] follow up visit Davida Juan is a 24 year old 25w4d. We are following her for Maternal cardiac history, palpitations, fatigue . She has no complaints today. States she is being treated for a UTI right now. States she has had multiple UTIs this . Reports completing Holter Monito rbut has not sent it in for review. States palpitation episodes are infrequent. She reports good FM, no bleeding, no LOF, no DC, no cramps/contractions/pain/pressure, no JONES's, vision changes, RUQ pain, or swelling. Genetic screening/testing: low-risk cf-DNA Her is complicated by: Patient Active Problem List Diagnosis Date Noted Cardiac disease in mother affecting , unspecified trimester (HCC) 10/05/2024 Priority: Not Prioritized Exam: BP 111/62 Pulse 101 Wt 64.4 kg (142 lb) General: NAD Abdomen: soft, NT Extremities: equal in size and width bilaterally, NT, no sign of edema FHT: per US Urine dip: sample not produced US: Please see report for details. Impressions/Recs 1. IUP (Intrauterine ) at 25w4d 2. Maternal cardiac history, S/p Cardiology consult, recommended 7 day Holter. Reports completing it but has not sent it in for review yet. Pulmonology consult ordered Serial growth US ECHO recommended, ordered 3. Tobacco Use Tobacco is associated with numerous adverse outcomes associated during and the postpartumperiod including miscarriage, spontaneous delivery, growth restriction, abruption, stillbirth, and SIDS. She was counseled to cut down smoking and quit, if possible. Encouraged cessation. She was counseled to cut down smoking and quit, if possible. 4. CC: Multiple UTI's this per patient report Discussed the possible need for suppression to prevent more UTIs in . Recommended patient to discuss further with primary OB. 5. We reviewed kick counts (BID), as well as PTL and preeclampsia signs and symptoms. 6. 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 Keep all appointments with primary OB I spent 30 minutes with the patient, greater than 50% of the time was spent face to face in discussion with the patient the remainder of the time was spent in chart prep and data review. The patient is to follow up with her primary obstetrical care provider for her routine care and acute OB care including delivery as clinically indicated. Once again, we appreciate the opportunity to assist you in the care of your patient. If issues arise for which I can be of help before her next visit here, please contact me directly, or contact one of the [facility] physicians. PAMELA Kirk 10/05/2024 1:52 PM documented in this encounter Plan of Treatment Upcoming Encounters Date Type Department Care Team (Late st Contact Info) Description 10/30/2024 1:00 PM CDT Appointment [facility] [address] [place] [address] documented as of this encounter Visit Diagnoses Diagnosis 25 weeks gestation of (HCC)- Primary state, incidental Encounter for follow-up ultrasound of anatomy (HCC) Cardiac disease in mother affecting , unspecified trimester (HCC) Tobacco smoking affecting , antepartum (HCC) documented in this encounter Care Teams Lap Polisher Relationship Specialty Start Date End Date Unknown, Provider PCP - General 09/06/24 documented as of this encounter
[2024-10-05 23:11] VITALS: BP 117/68; PULSE 106; RESP 17; O2SAT 99
[2024-10-05 23:17] VITALS: PULSE 104; O2SAT 100
--- NOTE | 2024-10-05 23:19 | ECG_ITS ---
Test Date: 2024-10-05 23:31:54 Measurements Intervals [place] Rate: 93 P: 43 VA: 150 QRS: 49 QRSD: 88 T: 27 QT: 359 QTc: 449 Interpretive Statements SINUS RHYTHM POSSIBLE LEFT ATRIAL ENLARGEMENT POSSIBLE RIGHT VENTRICULAR CONDUCTION DELAY BORDERLINE ST-T WAVE ABNORMALITY- INFERIOR LEADS BORDERLINE ECG Compared to ECG 09/08/2024 15:03:25 NO SIGNIFICANT CHANGE Electronically Signed On 10-06-2024 06:40:13 CDT by Damien Mccarthy D.O.
[2024-10-05 23:39] LABS: Hematocrit 27.8 % (37.0-47.0); Hemoglobin 9.2 g/dL (12.0-15.0); Immature Granulocyte Percent A 1.1 % (0-0.5); Lymphocytes Absolute Auto 1.91 K/mm3 (0.9-3.2); Mean Corpuscular HGB Conc 33.1 g/dl (32-36); Mean Corpuscular Hemoglobin 30.0 pg (26-34); Mean Corpuscular Volume 90.6 fl (80-100); Nucleated Red Blood Cells Absolute Auto 0.000 K/mm3 (0.0-0.012); Nucleated Red Blood Cells Perc 0.0 % (0.0-0.2); Platelet Count Result 176 k/mm3 (150-375); Red Blood Count 3.07 M/mm3 (4.2-5.4); White Blood Count 6.5 K/mm3 (4.5-10.0)
[2024-10-05 23:50] LABS: Alanine Aminotransferase 15 U/L (6-35); Albumin Level 3.3 g/dL (3.5-5.1); Alkaline Phosphatase 73 U/L (38-126); Anion Gap 6 mmol/L (4-12); Aspartate Amino Transferase 24 U/L (14-36); Bilirubin,Total 0.2 mg/dL (0.2-1.3); Blood Urea Nitrogen 5 mg/dL (7-17); Calcium 8.3 mg/dL (8.4-10.2); Carbon Dioxide 20 mmol/L (22-30); Chloride 107 mmol/L (98-107); Estimated CRCL calculation 159 ml/min; Estimated Glomerular Filt Rate > 60; Glucose 112 mg/dL (65-110); Lipase 29 U/L (23-300); Potassium 3.2 mmol/L (3.4-5.0); Sodium 133 mmol/L (137-145); Total Protein 6.0 g/dL (6.3-8.2)
[2024-10-05 23:51] LABS: INR 1.0; Prothrombin Time 13.8 Seconds (11.1-14.7)
[2024-10-05 23:52] LABS: Partial Thromboplastin Time 27.1 Seconds (22.3-36.8)
[2024-10-06 00:01] LABS: Troponin I < 0.012 ng/mL (0.000-0.034)
--- OUTSIDE RECORDS SUMMARY | 2024-10-06 00:29 | XMS_ITS | Clinical Summary ---
Author Organization [facility] Address [address] [place] [address] Care Team Providers Care Clinical Operations Leader Name Role Phone Unavailable Primary Care Provider [...] SMEAR 2021 INFLUENZA VACCINE (#1) 2024 Insurance [facility] MEDICAID
--- OUTSIDE RECORDS SUMMARY | 2024-10-06 00:29 | XMS_ITS | Clinical Summary ---
Author Organization [facility] [employer] Address [address] [place] [address] Care Team Providers Care Lead Pourer Name Role Phone Unknown, Provider Primary Care Provider Unavaila ble Source Comments [facility] [employer],non-owned Affiliates and Associated Physician Practices is amultiple site organization consisting of ambulatory clinics and hospital sitesin [place], [place], [place] and [place]. This disclosure is being madepursuant to the Care Everywhere program and may not contain all information available regarding this patient. Last updated 17.[facility] Allergies No known active allergies Medications * [...] 4 TIMES A DAY X 7 DAYS 5 Active albuterol HFA (Proventil; Ventolin; Proair) 108 (90 Base) MCG/ACT inhaler INHALE 2 PUFFS BY MOUTH EVERY 6 HOURS NEEDED FOR SHORTNESS OF BREATH Active amoxicillin-cla vulanate (Augmentin) 875-125 MG tablet Take 1 (one) tablet by mouth 5 Active clindamycin (Cleocin) 300 MG capsule TAKE 1 CAPSULE BY MOUTH EVERY 6 HOURS FOR 7 DAYS 5 Active famotidine (Pepcid) 20 MG tablet Take 1 tablet twice a day by oral route. Active Active Problems Problem Noted Date Diagnosed Date Cardiac disease in mother af fecting , unspecified trimester 10/05/2024 Estimated Date of Delivery Comme nts Yes 01/14/2025 Based on last me nstrual period of 04/09/2024 Encounters Date Type Department Care Team Description 10/05/2024 10:32 AM CDT - 10/05/2024 11:59 PM CDT Hospital Encounter [facility] [address] [place] [address] Lucretia Sorenson MD Mead, Judith A, MD Discharge Disposition: Home or Self Care 10/05/2024 10:30 AM CDT - 10/05/2024 10:31 AM CDT Hospital Encounter [facility] [address] [place] [address] Lucretia Sorenson MD Mead, Judith A, MD Discharge Disposition: Home or Self Care 09/06/2024 2:00 PM CDT - 09/06/2024 11:59 PM CDT Hospital Encounter [facility] [address] [place] [address] Ortiz Pereira MD Discharge Disposition: Home or Self Care 09/06/2024 1:00 PM CDT - 09/06/2024 1:59 PM CDT Hospital Encounter [facility] [address] [place] [address] Ortiz Pereira MD Discharge Disposition: Home or [...] on file 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 Gender Identity Not on file Sexual Orientation Not on file Last Filed Vital Signs Vital Sign Reading Time Taken Comments Blood Pressure 111/62 10/05/2024 11:26 AM CDT Pulse 101 10/05/2024 11:26 AM CDT Temperature 36.9 C (98.5 F) 10/08/2022 10:49 PM CDT Respiratory Rate 14 10/08/2022 10:49 PM CDT Oxygen Saturation 97% 10/08/2022 10:49 PM CDT Inhaled Oxygen Concentration - - Weight 64.4 kg (142 lb) 10/05/2024 11:26 AM CDT Height 162.6 cm (5' 4) 09/06/2024 2:33 PM CDT Body Mass Index 24.37 09/06/2024 2:33 PM CDT Plan of Treatment Upcoming Encounters Date Type Department Care Team (Late st Contact Info) Description 10/30/2024 1:00 PM CDT Appointment [facility] [address] [place], [place] [id number] Health Maintenance Due Date Last Done Comments HPV VACCINE (1 - 3-dose series) 09/17/2015 HEPATITIS C SCREENING 09/12/2018 DTAP/TDAP/TD VACCINES (1 - Tdap) 09/17/2019 HEPATITIS B VACCINE (1 of 3 - 19+ 3-dose series) 09/17/2019 PNEUMOCOCCAL VACCINE (1 of 2 - PCV) 09/17/2019 PAP SMEAR 2021 COVID-19 VACCINE (1 - 2023-2 5 season) 2023 CHLAMYDIA/GONORRHEA SCREENING 11/02/2023 11/01/2022 DEPRESSION SCREENING 02/09/2024 OB-ONE HOUR GLUCOSE 10/08/2024 09/02/2020 INFLUENZA VACCINE (#1) 2024 3, 01/08/2005 OB-TDAP CURRENT 10/15/20242022, 07/06/2012 OB-RHOGAM INJECTION 10/22/2024 Respiratory Syncytial Virus (RSV) Vaccine Pt: or over 60 yrs (1 - Risk 1-dose series) 11/19/2024 OB-GROUP B STREP SCREEN 12/10/2024 10/29/2020 ZOSTER VACCINE (1 of 2) 2050 HIV SCREENING Completed 09/02/2020, 05/01/2020 HIB VACCINE Aged Out No longer eligi ble based on patient's age to complete this topic MENINGOCOCCAL (Group B) VACCINE SHARED DECISION-MAKING Aged Out No longer eligible based on patient's age to complete this topic MENINGOCOCCAL GROUPS A/C/Y/W VACCINE Aged Out No longer eligible b ased on patient's age to complete this topic Procedures Procedure Name Priority Date/Time Associated Diagnosis Comments SONOGRAM - COMPLETE Routine 10/05/2024 1 0:39 AM CDT 25 weeks gestation of (HCC) Encounter for follow-up ultrasound of anatomy ([facility]) Cardiac disease in mother affecting , unspecified trimester (HCC) Tobacco smoking affecting , antepartum ([facility]) SONOGRAM - COMPLETE Routine 09/06/2024 1 :49 PM CDT Systolic murmur History of shoulder dystocia in prior Chronic obstructive pulmonary disease, unspecified COPD type ([facility]) 21 weeks gestation of ([facility]) Abnormal ultrasound from Last 3 Months Results * Sonogram - Complete (10/05/2024 10:39 AM CDT) Only the most recent of2 resultswithin the time period is included. Linked Results Indication ======== Abnormal finding on previous ultrasound pericardial fluid and dilated gallbladder Maternal cardiac disease, congenital, complicating , heart palpitations and fatigue unspecified Smoking (tobacco) complicating History ====== OB History 4. Para 2 [id number] 1. live 2020. Details: Vaginal delivery, full [...] 2 lb 3 oz EFW by Hadlock ([id number]) overall normal range, but the AC is [...] view. RVOT view. LVOT view. 3-vessel view. 2-[id number]-gcajldf view. Situs. Bicaval view. Ductal arch view. [...] with maternal glucose screening. Coding ====== Procedures [id number]: US Preg Uterus Follow Up [employer] PACS Anatomical Region Laterality Modality Other 10/05/2024 10:3 9 AM CDT Wilmar Casas MD [facility] ORDERABLES Edited Resul t - Final from Last 3 Months Insurance [facility] * Guarantor: CELENA DUMONT Account Type Relation to Patient Date of Phone Billing Address Personal/Family Other [address] [phone] Care Teams Lead Pourer Relationship Specialty Start Date End Date Unknown, Provider PCP - General 09/06/24
[2024-10-06] MEDS: ACETAMINOPHEN 500 MG TABLET 1000 MG PO (00:40)
[2024-10-06] MEDS: MAG HYDROX/AL HYDROX/SIMETH 30 ML UDC PO (00:40)
[2024-10-06] MEDS: FAMOTIDINE 20 MG/2 ML VIAL IV PUSH (00:40)
[2024-10-06 00:48] VITALS: BP 117/68; PULSE 82; RESP 18; O2SAT 99
[2024-10-06 01:15] LABS: Influenza A QL RT-PCR Negative (Negative); Influenza B QL RT-PCR Negative (Negative); RSV RNA, RT-PCR Negative (Negative); SARS-CoV-2 RNA PCR Negative (Negative)
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
[2024-10-06 03:03] VITALS: BP 118/69; PULSE 77; RESP 18; O2SAT 99
[2024-10-06 05:43] VITALS: BP 133/67; PULSE 72; RESP 18; O2SAT 100
[2024-10-06 06:10] VITALS: BP 122/66; PULSE 76; RESP 21; O2SAT 98
--- NOTE | 2024-10-06 06:30 | PC.NURSE ---
Patient requested a cab voucher when she was informed of discharge. This RN along with night furnace charger Shaylee went to speak with patient. Patient was informed that we will not be giving her a cab voucher as her request. It was noted that she only had 1 car seat and she has 2 small children and the [employer] will not take her without a second car seat. She was informed that she will need to find a ride home. Patient was informed that she will be discharged to the waiting room and would have 1 hour to locate a ride. She informed this RN that she does not have anyone to pick her up and she does not have any money to pay for any rides. She was informed that we do not allow loitering and that she could be escorted off the property by police if a ride is not located within a reasonable amount of time. This RN stated again that the [employer] cannot take her due to her not having a 2nd car seat and that she would need to find a ride somehow. Patient became very angry with this RN and began cussing at this RN about how horrible we are. Patient was asked to clean up the excessive amount of trash that was all over the floor from her children which she did. Patient was ambulatory to the waiting room.
== END 2024-10-06 06:11 | disposition home or self-care (01) ==
PROVIDERS: Emergency Provider Emergency Medicine
DX: O98.512 Other viral diseases complicating pregnancy, second trimester (principal); B34.9 Viral infection, unspecified; O99.612 Diseases of the digestive system complicating pregnancy, second trimester; K21.9 Gastro-esophageal reflux disease without esophagitis; O99.332 Smoking (tobacco) complicating pregnancy, second trimester; F17.210 Nicotine dependence, cigarettes, uncomplicated; Z3A.25 25 weeks gestation of pregnancy; R94.31 Abnormal electrocardiogram [ECG] [EKG]
CPT/HCPCS: 36415; 71045; 80053; 83690; 84484; 85025; 85380; 85610; 85730; 87637; 93005; 96374; 99284; A9270

== ENCOUNTER 2024-11-20 20:23 | Observation (INO) | payer OTHER, SELFPAY ==
--- OUTSIDE RECORDS SUMMARY | 2024-09-14 19:00 | XMS_ITS | Continuity of Care Document ---
Author Organization [facility] Address [address] [place] [phone] Phone Care Team Providers Care Systems Qa Analyst Name Role Phone Shruthi WATTS, Donnie Unavailable Unavailabl e Procedures Procedure Date ELECTROCARDIOGRAM REPORT ELECTROCARDIOGRAM REPORT Advance Directives Directive Yes / No Effective Date File Name No Information Encounters Encounter Description Practice Location Reason(s) For Visit Diagnoses Date Provider Providers Copied on Encounter [facility], [address] [place] [address], [address] [place] [address], tel:[phone] [facility] No Information Shruthi Fields. [address] [place] [address], [id number], . tel:[phone] Referring Provider: Donnie Hawkins, [address] [place] [address], [id number]. tel:[phone] [facility], [address] [place] [address], [id number], tel:[phone] [facility] No Information Rufino Zarate. [address] [place] [address], [id number], . tel:[phone] Referring Provider: Tessa Joy, [address] [place] [address], [id number]. tel:[phone] Family History Family Member Type Diagnosis Age At Onset No Information Payers Payer name Insurance type Covered alliance party ID Anne ayers(s) [place] MEDICAID [id number] Social History Type Description Quantity Date Captured [...]
[2024-11-20] VITALS (12 sets, daily range): BP systolic 125; BP diastolic 64–67; PULSE 101–120; TEMP 37.3; O2SAT 98–100; BMI 25.6
--- NOTE | 2024-11-20 20:23 | PC.NURSE ---
Pt arrives to unit with cramping and burning prior to and upon urination.
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
--- OUTSIDE RECORDS SUMMARY | 2024-11-20 20:29 | XMS_ITS | Data Portability ---
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 Hypoventilation Plan: The following were reviewed and explained to the patient: primary care/referral note [facility] home sleep study 05/27/22 AHI = 8, [...] Follow-up: 1 week after titration sleep study [email or web address] Not available 01/27/2023 09:51:51 05/27/2023 05/27/2023 Assessment: Rhinitis Mild OSAHS, AHI = 8 Plan: The following were reviewed and explained to the patient: [facility] home sleep study 05/27/22 AHI = 8, supine AHI = 10 [facility] titration sleep study 05/15/23 sleep onset [...] spray, use ipratropium bromide nasal spray if rhinitis/rhinorrhe a is present or obtain an oronasal/oral interface. [...] Patient will setup an appointment with [facility] for supplies and pressure adjustments. A major [...] 0.53 L (35%), DLCO 63%, DLCO/VA 80% [facility] home sleep study 05/27/22 AHI = 8, supine AHI = 10 [facility] titration sleep study 05/15/23 sleep onset [...] spray, use ipratropium bromide nasal spray if rhinitis/rhinorrhe a is present or obtain an oronasal/oral interface. [...] Patient will setup an appointment with [facility] for supplies and pressure adjustments. A major [...] months, February 2024 Not available 08/26/2023 15:52:38 09/21/2024 09/21/2024 Assessment: Rhinitis Mild OSAHS, AHI = 8 Mild ACO Plan: The following were reviewed and explained to the patient: PFT 07/28/23 decreased FEV1/FVC, FEV1 2.79 L (88%), BD 600 mL = 27%, TLC 4.42 L (85%), RV 0.53 L (35%), DLCO 63%, DLCO/VA 80% [facility] home sleep study 05/27/22 AHI = 8, supine AHI = 10 [facility] titration sleep study 05/15/23 sleep onset = 17 minutes, REM onset = 185.5 minutes, Mazin small Veronika nasal mask @ 4-6 cmH2O PAP compliance downloaded and interpreted x 20 minutes. Data reviewed and explained to the patient. Average apnea/hypopnea index (AHI) is 2.3. Patient used PAP > 4 hours 5% of the time. PAP is set at 5-6 cmH2O. PAP will remain at 5-6 cmH2O. Keep ramp off. Keep EPR +2 time buyer. Keep humidifier level on automatic mode. Keep tube temperature at 72 F. Oxygen supplementation: none Patient is benefiting from [...] spray, use ipratropium bromide nasal spray if rhinitis/rhinorrhe a is present or obtain an oronasal/oral interface. [...] Patient will setup an appointment with [facility] for supplies and pressure adjustments. A major [...] to PCP for further management. Follow-up: 1 year, September 2025 Not available 09/21/2024 15:36:46 10/26/2024 10/26/2024 Assessment: Nicotine smoke: 02/09 ppd 2017-present = 3.5 pack years Rhinitis Mild OSAHS, AHI = 8 Mild ACO 3rd trimester intrauterine (LMP 04/09/24; EDC = 01/14/25) Plan: The following were reviewed and explained to the patient: PFT 07/28/23 decreased FEV1/FVC, FEV1 2.79 L (88%), BD 600 mL = 27%, TLC 4.42 L (85%), RV 0.53 L (35%), DLCO 63%, DLCO/VA 80% [facility] home sleep study 05/27/22 AHI = 8, supine AHI = 10 [facility] titration sleep study 05/15/23 sleep onset = 17 minutes, REM onset = 185.5 minutes, [employer]a small Veronika nasal mask @ 4-6 cmH2O [facility] ED note 10/21/24 generalized headache and 1-year frontal chest pain with worsening to 5/10 intensity, no dyspnea, no leg pain or swelling, EKG NSR at 98 bpm, D-dimer 2.71 mg/L, transferred to [facility] for monitoring Nicotine cessation counseling provided for 3.5 minutes. [place] for quitting nicotine include getting ready, getting support and encouragement, learning new skills and behaviors and being prepared to handle slips. Tips for dealing with cravings provided. Prevention of subsequent illnesses from nicotine addiction discussed. Comorbidities include but are not limited to hypertension, cerebrovascular disease, coronary heart disease, congestive heart failure, hyperlipidemia, COPD/asthma, peptic ulcer disease, esophagitis/gastri tis, and osteoporosis. Therapy options offered include: Quitting by total abstinence Receiving nicotine replacement therapy Undergoing hypnosis Filling a bupropion or varenicline prescription Enrolling in Quit For Life program Registering at [email or web address] a call to 1-349-MXEQ-NOW ( ). A strong, clear, personalized message was given to the patient to quit smoking. The patient was urged to set a quit date. We discussed patient's barriers to quitting and I will be of assistance when patient is ready to quit. I encouraged patient to inform friends and family of plans to quit with a request for support. I encouraged the patient to remove all cigarettes from the environment. We reviewed any previous quit attempts and lessons learned from them. I encouraged total abstinence from smoking and advised the patient that drinking alcohol and/or associating with other smokers are associated with failure or relapse. Patient can enroll in [facility]'s smoking cessation class. Enrollment is free and classes are held every wednesday of the month from 1:30 pm to 2:30 pm at the conference room next to the cafeteria on the ground floor. The -Adapted Chaffee (PAG) score ranges from 0 to 20 points and shows a high discriminative power to identify patients at low (0 1 point), intermediate (2 6 points), or high ( 7 points) clinical pretest probability for pulmonary embolism during . PAG Score ITEM POINTS Age 40 years = +1 Surgery (under [place]) or lower limb fracture in the past month = +2 Previous DVT or PE = +3 Unilateral lower limb pain = +3 Hemoptysis = +2 Lower limb tenderness and unilateral edema = +4 Heart rate >110 bpm = +5 Maximum point number = 20 Points Category PE Prevalence 0 1 Low 1.0 4 .9% 2 6 Intermediate 6.9 1 8.9% 7 High 35.5 8 2.2% The patient has a PAG score of 0. Eugenia Reardon., Carolee Patrick., Bong Cavanaugh. New cut-off point for D-dimer in the diagnosis of pulmonary embolism during . Blood Res. 2020;56:150 1 55. doi: 10.5045/br.2020.20 20957 suggested the following reference ranges for the d-dimer level: 1. 169 1 202 g/L for the first trimester of 2. 393 3 258 g/L for the second trimester of 3. 551 3 333 g/L for the third trimester of The patient's D-dimer was 2.71 mg/L, which is equivalent to 2711 g/L. Further testing for pulmonary embolism is not indicated. Cough/Dyspnea workup will be done as follows: Respiratory allergen panel for [facility] Serum IgE Serum total IgG, IgG1, IgG2, IgG3, IgG4 Uzaup-0-fswiyzflsb n phenotype and level TB stimulated gamma interferon B-type natriuretic peptide (BNP) Eosinophil count Complete pulmonary function testing (PFT) Advised to continue not to smoke. Continue Albuterol HFA as needed. Continue Symbicort HFA 80/2.5 mcg 2 puffs BID, not as needed. Gargle after use. The patient does not know how to accurately administer the inhalers. Today, the patient was shown how to take these medications. The proper technique for delivering these medications was instructed. The patient expressed a clear understanding and demonstrated back how to use these medications. Without the proper technique, the patient will not reap the benefits of these medications as the contents will not reach the lower airways as intended to be. Adherence to therapy is advocated. Nonadherence may lead to treatment failure, further progression of the condition, and other complications. Hospitals admissions are often the result of individuals not taking prescription medications accurately. Alternatively, greater adherence to medication regimens have shown to lower rates of hospitalization and decrease total medical costs in patients with chronic medical conditions. PAP compliance downloaded and interpreted x 20 minutes. Data reviewed and explained to the patient. Average apnea/hypopnea index (AHI) is 2.3. Patient used PAP > 4 hours 5% of the time. PAP is set at 5-6 cmH2O. PAP will remain at 5-6 cmH2O. Keep ramp off. Keep EPR +2 time buyer. Keep humidifier level on automatic mode. Keep tube temperature at 72 F. Oxygen supplementation: none Patient is benefiting from PAP therapy. Encouraged patient to maintain PAP use more than 70% of the time. Statement of PAP use and benefits will be sent to the home care store. Replacement hose ordered. Educated the patient on problems and solutions [...] spray, use ipratropium bromide nasal spray if rhinitis/rhinorrhe a is present or obtain an oronasal/oral interface. [...] carrier. Patient will setup an appointment with [facility] for supplies and pressure adjustments. A major predictor of success with use of PAP is follow-up with both the respiratory supplier and the treating physician. The download results can show the treating [...] for further management. Follow-up: 1 week after PFT Spent 60 minutes: 1. preparing to see the patient (eg, review of tests), 2. obtaining and/or reviewing separately obtained history, 3. performing a medically appropriate examination and evaluation, 4. counseling and educating the patient, 5. ordering medications and tests, 6. documenting clinical information in the electronic health record, 7. independently interpreting results, and 8. communicating results to the patient. Not available 10/26/2024 12:31:10 Plan of Treatment Reminders Order Date Submit Date Provider Last Modified By Organization Details Last Modified Time Details Appointments None recorded. Lab alpha-1-ant itrypsin (aat) phenotype, serum 2024 025 [facility] (Lab), [address] [place], [address], 5 12:18:07 BNP (B-type natriuretic peptide), serum or plasma 2024 025 [facility] [address] [place] [address] (Lab), [address] [place], [address], 5 11:15:08 ige, total, serum 2024 [facility] [address] [place] [address] (Lab), [address] [place], [address], 5 11:15:21 tb (M tuberculosi s), ifn-gamma nicki, blood [address] (Lab), [address] [place], [address], 5 11:15:36 igg subclasses 1+2+3+4, serum [address] (Lab), [address] [place], [address], 5 11:15:50 respiratory allergen panel, [facility] A, serum [address] (Lab), [address] [place], [address], 5 11:16:03 respiratory allergen panel - [facility] b [address] (Lab), [address] [place], [address], 5 11:16:17 eosinophils , quant, blood [address] (Lab), [address] [place], [address], 5 11:16:29 pro BNP (pro B-type natriuretic peptide), serum or plasma 2024 025 KATHLEEN [facility] (Lab), [address] [place], [address], 5 14:07:34 alpha-1-ant itrypsin (aat), QN, serum [address] (Lab), [address] [place], [address], 5 11:16:42 Referral None recorded. Procedures None recorded. Surgeries None recorded. Imaging polysomnogr am, titration study - Auth approved, auth# [id number] 1, valid 01/27/23 - 11/28/232022 023 [facility], [address] [place], [address], 15:31:05 Medication Orders None recorded. Patient TargetsNo targets recorded. Patient Instructions Encounter Date Encounter Id Patient Instructions Last Modified By Organization Details Last Modified Time 10/26/2024 [id number] complete PFT w/ post bronchodilator spirometry* - Please call patient to schedule. ATHENAFAX Not available 10/26/2024 13:30:55 Reason for Referral None Reported. Results Created Date Observation Date Name Description Value Unit Range Abnormal Flag Note LastModifiedBy Organization Detail LastModifiedTime 06/29/19 24 05/15/2023 polys omnog arnel, titra tion study No observ ation record ed. BARCODE [facility] [address] [place], [address], 06/29/2023 15:12:39 07/29/19 24 07/28/2023 compl ete PFT w/ post [facility] hodil ator ashlie metry * No observ ation record ed. BARCODE Not Available 2023 12:22:29 Result Notes None recorded. Problems Name Problem SNOMED Code Status Onset Date Resolution Date Notes Provider Name and Address Organization Details Recorded Time Obstructive sleep apnea syndrome 44411265 Active 2022 Rick Sargent MD [address], [place], [address], [employer] 5 17:51:08 Tobacco dependence caused by cigarettes [id number] 9107 Active 2024 Rick Sargent MD [address], [place], [address], [employer] 5 17:51:11 Notes:Medical History: Nicot ine use Depression Rhinitis with postnasal drip IgE 40 IU/mL Eosinophils 230/uL AAT PiMM 256 mg% Mild ACO Obesity with mild OSAHS, AHI = 8, 05/27/22, on autoCPAP c/o [facility] EF 50% CLARISA Procedure History: None 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 Medical Equipment None Reported. Allergies No known drug allergies Medications Name Sig Start Date Stop Date Status Note LastModified by Organization Details LastModified Time cyclobenzap rine 10 mg tablet TAKE 1 TABLET BY MOUTH EVERY 8 HOURS 09/21 completed Not Available Not Available Not Available amoxicillin 500 mg capsule TAKE 1 CAPSULE BY MOUTH EVERY 8 HOURS FOR 7 DAYS 09/21 completed Not Available Not Available Not Available terconazole 0.4 % vaginal cream INSERT 1 APPLICATO RFUL BY VAGINAL ROUTE FOR 7 DAYS. 10/25 completed Not Available Not Available Not Available neomycin-po lymyxin-hyd rocort 3.5 mg/mL-10,00 0 unit/mL-1 % ear solution INSTILL 3 DROPS IN THE AFFECTED EAR(S) 3 TIMES A DAY FOR 7 DAYS 10/25 completed Not Available Not Available Not Available Vitamin B-6 25 mg tablet TAKE 1 TABLET BY MOUTH THREE TIMES A DAY active Not Available Not Available No t Available nicotine 14 mg/24 hr daily transdermal patch APPLY 1 PATCH TO SKIN ONCE DAILY active Not Available Not Available No t Available Saline Mist 0.65 % nasal spray aerosol ADMINISTE R 2 SPRAYS INTO EACH NOSTRIL 4 TIMES A DAY NEEDED FOR DRY NASAL PASSAGES. NOT COVERD. 06/28 completed Not Available Not Available Not Available clindamycin HCl 300 mg capsule TAKE 1 CAPSULE BY MOUTH EVERY 6 HOURS FOR 7 DAYS 10/25 completed Not Available Not Available Not Available cetirizine 10 mg tablet TAKE 1 TABLET BY MOUTH EVERY DAY active Not Available Not Available No t Available azithromyci n 250 mg tablet TAKE 2 TABLETS BY MOUTH TODAY, THEN TAKE 1 TABLET DAILY FOR 4 DAYS 01/27 completed Not Available Not Available Not Available fluconazole 150 mg tablet TAKE 1 TABLET BY MOUTH EVERY 3 DAYS FOR 2 DOSES 10/25 completed Not Available Not Available Not Available sumatriptan 100 mg tablet TAKE 1 TABLET BY MOUTH EVERY DAY FOR 30 DAYS 01/27 completed Not Available Not Available Not Available fluconazole 200 mg tablet TAKE 1 TABLET BY MOUTH TODAY. THEN, TAKE THE 2ND TAB AFTER COMPLETIN G ENTIRE COURSE OF ANTIBIOTI CS. 09/21 completed Not Available Not Available Not Available ondansetron HCl 4 mg tablet TAKE 1 TABLET BY MOUTH EVERY 8 HOURS 08/25 completed Not Available Not Available Not Available prednisone 20 mg tablet TAKE 1 TABLET BY MOUTH EVERY DAY FOR 5 DAYS 08/25 completed Not Available Not Available Not Available terconazole 0.8 % vaginal cream INSERT 1 APPLICATO RFUL VAGINALLY EVERY DAY 09/21 completed Not Available Not Available Not Available clotrimazol e 1 % vaginal cream INSERT 1 APPLICATO RFUL INGTO THE VAGINA AT BEDTIME FOR 7 NIGHTS 09/21 completed Not Available Not Available Not Available metronidazo le 500 mg tablet TAKE 1 TABLET BY MOUTH 2 TIMES A DAY. AVOID ALCOHOL DURING AND 3 DAYS AFTER TREATMENT . 09/21 completed Not Available Not Available Not Available valacyclovi r 500 mg tablet TAKE 1 TABLET BY MOUTH TWICE A DAY 01/27 completed Not Available Not Available Not Available acetaminoph en 500 mg tablet TAKE 2 TABLETS BY MOUTH 3 TIMES A DAY NEEDED FOR PAIN 10/25 completed Not Available Not Available Not Available amoxicillin 500 mg tablet TAKE 1 TABLET BY MOUTH EVERY 8 HOURS FOR 7 DAYS 09/21 completed Not Available Not Available Not Available [...] Available Not Available famotidine 20 mg tablet TAKE 1 TABLET BY [...] completed Not Available Not Available Not Available cephalexin 500 mg capsule TAKE 1 ORAL CAPSULE 4 TIMES A DAY X 7 DAYS 09/21 completed Not Available Not Available Not Available ferrous sulfate 325 mg (65 mg iron) tablet TAKE 1 TABLET BY MOUTH EVERY DAY FOR 30 DAYS active Not Available Not Available No t Available nitrofurant oin macrocrysta l 100 mg capsule TAKE 1 CAPSULE BY MOUTH TWICE A DAY WITH FOOD/MEAL 08/25 completed Not Available Not Available Not Available lidocaine 5 % topical patch APPLY 1 PATCH TOPICALLY DAILY LEAVE ON MOST PAINFUL AREA FOR UP TO 12 HRS 09/21 completed Not Available Not Available Not Available docusate sodium 100 mg capsule TAKE 1 CAPSULE BY MOUTH TWICE A DAY NEEDED FOR 30 DAYS 12/21 completed Not Available Not Available Not Available omeprazole 20 mg capsule,del ayed release TAKE 1 CAPSULE BY MOUTH EVERY DAY FOR 30 DAYS FOR ACID REFLUX 09/21 completed Not Available Not Available Not Available bisacodyl 5 mg tablet,marisabel yed release [...] Available ondansetron 4 mg disintegrat ing tablet PLACE 1 TABLET ON TONGUE AND LET DISSOLVE EVERY 6 HOURS NEEDED, FOR NAUSEA. 09/21 completed Not Available Not Available Not Available cefdinir 300 mg capsule TAKE 1 CAPSULE BY MOUTH EVERY 12 HOURS 06/28 completed Not Available Not Available Not Available fluticasone propionate 50 mcg/actuati on nasal spray,suspe nsion INSTILL 1 SPRAY IN EACH NOSTRIL EVERY NIGHT BEFORE BED active Not Available Not Available No t Available fluticasone propionate 110 mcg/actuati on HFA aerosol inhaler INHALE 1 PUFF BY MOUTH TWICE A DAY DIRECTED FOR PREVENTIO N OF ASTHMA ATTACKS 09/21 completed Not Available Not Available Not Available naproxen 500 mg tablet TAKE 1 TABLET ORAL ROUTE EVERY 12 HOURS NEEDED NEEDED FOR PAIN 10/25 completed Not Available Not Available Not Available metoclopram trino 10 mg tablet TAKE 1 TABLET BY MOUTH FOUR TIMES A DAY active Not Available Not Available No t Available amoxicillin 875 mg-potassiu m clavulanate 125 mg tablet TAKE 1 TABLET BY MOUTH TWICE A DAY FOR 7 DAYS 10/25 completed Not Available Not Available Not Available azithromyci n 500 mg tablet TAKE 2 TABLETS BY MOUTH ONCE 09/21 completed Not Available Not Available Not Available medroxyprog esterone 150 mg/mL intramuscul ar syringe Inject 1 mL every 3 months by intramusc ular route. 06/28 completed Not Available Not Available Not Available nitrofurant oin monohydrate /macrocryst als 100 mg capsule TAKE 1 CAPSULE BY MOUTH EVERY 12 HOURS FOR 7 DAYS 10/25 completed Not Available Not Available Not Available metronidazo le 1 % topical gel APPLY 1 APPLICATI ON ONTO THE AFFECTED AREA(S) ON THE SKIN DAILY AT BEDTIME 08/25 completed Not Available Not Available Not Available budesonide- formoterol HFA 80 mcg-4.5 mcg/actuati on aerosol inhaler INHALE 2 PUFFS BY MOUTH 2 TIMES A DAY RINSE MOUTH WITH WATER AFTER USE. DO NOT SWALLOW. active Not Available Not Available No t Available tranexamic acid 650 mg tablet TAKE 2 TABLETS BY MOUTH THREE TIMES DAILY X 5 DAYS 09/21 completed Not Available Not Available Not Available 28 mg iron-800 mcg tablet TAKE 1 TABLET BY MOUTH EVERY DAY 01/27 completed Not Available Not Available Not Available nitrofurant oin 100 mg tablet Take by oral route. active Not Available Not Available No t Available magnesium 400 mg (as magnesium oxide) tablet TAKE 1 TABLET BY MOUTH DAILY active Not Available Not Available No t Available M- Plus 27 mg iron-1 mg tablet TAKE 1 TABLET BY MOUTH EVERY DAY active Not Available Not Available No t Available Vitals Date Recorded Heart rate Heart rate Respiratory rate Provider Name and Address Organization Details Last Updated DateTime 05/27/2023 98 /min 98 /min 15 /min Rick Sargent MD [address], [place], [address], [place] [facility] 05/27/2023 10:19:19 Date Recorded Body height Body mass index (BMI) Body weight Oxygen saturation Oxygen saturation in Arterial blood by Pulse oximetry Body temperature Systolic And Diastolic Provider Name and Address Organization Details Last Updated DateTime 4 162.56 cm 24.2 kg/m2 83201.5 2 g 98 % 98 % 97.2 [degF] 120/76 mm[Hg] Jax Hairston CMA [employer] [facility] 4 09:35:32 Date Recorded Heart rate Heart rate Body temperature Respiratory rate Provider Name and Address Organization Details Last Updated DateTime 08/26/2023 108 /min 108 /min 98.1 [degF] 14 /min Rick Sargent MD [address], [place], [address] , [employer] 08/26/2023 15:59:25 Date Recorded Body height Body mass index (BMI) Body weight Oxygen saturation Oxygen saturation in Arterial blood by Pulse oximetry Systolic And Diastolic Provider Name and Address Organization Details Last Updated DateTime 4 162.56 cm 24.9 kg/m2 86705.8 9 g 98 % 98 % 118/68 mm[Hg] Jax Hairston CMA [employer] [facility] 4 15:26:25 Date Recorded Heart rate Respiratory rate Heart rate Provider Name and Address Organization Details Last Updated DateTime 09/21/2024 111 /min 15 /min 111 /min Rick Sargent MD [address], [place], [address], [place] [facility] 09/21/2024 15:54:42 Date Recorded Body weight Body mass index (BMI) Body height Body temperature Oxygen saturation Oxygen saturation in Arterial blood by Pulse oximetry Systolic And Diastolic Provider Name and Address Organization Details Last Updated DateTime 5 58740.9 3 g 24 kg/m2 162.56 cm 97.9 [degF] 97 % 97 % 126/86 mm[Hg] Sandra Green MA [facility] 5 15:29:13 Date Recorded Heart rate Heart rate Respiratory rate Provider Name and Address Organization Details Last Updated DateTime 10/26/2024 107 /min 107 /min 15 /min Rick Sargent MD [address], [address] 10/26/2024 12:00:24 Date Recorded Body height Body mass index (BMI) Body weight Body temperature Oxygen saturation Oxygen saturation in Arterial blood by Pulse oximetry Systolic And Diastolic Provider Name and Address Organization Details Last Updated DateTime 5 162.56 cm 24.9 kg/m2 35442.8 9 g 98.1 [degF] 98 % 98 % 108/62 mm[Hg] Sandra Green MA [facility] 5 11:51:25 Date Recorded Heart rate Respiratory rate Provider N kings and Address Organization Details Last Updated DateTime 01/27/2023 76 /min 15 /min [facility]argent MD [address] [facility] [address], [address] 01/27/2023 09:47:39 Date Recorded Body weight Body mass index (BMI) Body height Body temperature Heart rate Oxygen saturation Oxygen saturation in Arterial blood by Pulse oximetry Systolic And Diastolic Provider Name and Address Organization Details Last Updated DateTime 3 46956.6 7 g 25.4 kg/m2 162.56 cm 98.1 [degF] 76 /min 98 % 98 % 118/76 mm[Hg] Sandra Green MA [facility] 3 09:19:25 Social History Question Answer Notes LastModified by Organizat ion Details LastModified Time Tobacco Smoking Status Current Some Day Smoker Sandra Green MA [facility] 10/26/2024 11:46:31 What Is Your Level Of Caffeine Consumption? [...] Date Of Your Most Recent Tobacco Screening? 10/26/2024 Information not available 10/26/2024 Do You Have Any Pets? No Information not available 01/27/2023 Do You Use Your Seat Belt Or Car Seat Routinely? Yes Information not available 01/27/2023 Do You Have Smoke And Carbon Monoxide Detectors In Your Home? Yes Information not available 01/27/2023 Are You Passively Exposed To Smoke? No Information no t available 01/27/2023 How Much Tobacco Do You Smoke? 0.25 PPD Only A Couple Every Few Days Information not available 10/26/2024 Do You Use Sunscreen Routinely? No Information [...] anxious, or unable to sleep at night)? [id number] Information not available 01/27/2023 Family History Relationship [...] Diagnosis SNOMED-CT Code Diagnosis ICD10 Code Diagnosis IMO Codes Diagnosis Note [id number] Rick Sargent MD [facility] [place] [address] 01/27/2023 09:01:49 01/28/2023 08:54:47 Obstructive sleep apnea syndrome [id number] G47.33 G47.36 G47.61 [id number] Rick Sargent MD [place] [address] 0 05/27/2023 09:22:09 05/28/2023 08:43:41 Obstructive sleep apnea syndrome [id number] G47.33 [id number] [facility] [address] 08/26/2023 15:07:03 08/27/2023 08:09:56 Obstructive sleep apnea syndrome [id number] G47.33 [id number] Rick [facility]argent [facility] [address] 09/21/2024 15:09:49 09/22/2024 15:56:58 Obstructive sleep apnea syndrome [id number] G47.33 [id number] Rick [facility]ent [facility] [place] [address] 10/26/2024 11:27:36 10/27/2024 15:20:14 Obstructive sleep apnea syndrome [id number] G47.33 Dyspnea on exertion 6084 5006 R06.09 R05.3 Z91.09 D89.9 [id number] Tobacco de pendence caused by cigarettes [id number] F17.218 F17.219 Z87.756 [id number] Health Concerns Section Related Observation LastModified by Organization Detai ls LastModified Time None Recorded Concern Status LastModified by Organization Details LastModified Time None Recorded Advance Directives Directive None Recorded Payers Insurance Date Sequence Insurance Name Policy Number Policy Cantu Covered Member ID Cantu Member ID Guarantor Name 09/21/2024 1 [employer] [place] - DOS ON OR AFTER 2020 (MEDICAID REPLACEMENT - HMO) Davida Juan [id number] Davida Juan 09/21/2024 [facility] Davida Juan SELF SELF Davida Juan 11/06/2024 1 [facility] ON OR AFTER 08/08/20 (MEDICAID REPLACEMENT - HMO) Davida Juan [id number] Davida Juan 09/21/2024 2 [place] [facility] [employer] Davida Juan [id number] Davida Juan Notes Date Note Type Note Provider Name and Address Organization Details Recorded Time 3 text/html Primary care/Referring provider: Sammie Coates MD During the [facility] home sleep study on 05/27/22 AHI = [...] moderate chance of dozing. Rick Sargent MD [address] [place] [address], [phone], [facility] 01/27/2023 09:58:37 4 text/html Primary care/Referring provider: Zak Arauz MD; Sammie Coates MD During the [facility] home sleep study on 05/27/22 AHI = 8, supine AHI = 10. During the [facility] titration sleep study on 05/15/23, sleep onset = 17 minutes, REM onset = 185.5 minutes. The patient uses a [employer] AirSense 11 autoset unit with heated humidification. The patient does not need the ramp to start low and go up slowly on the pressure. There is no xerostomia in a.m. There is no hose/mask condensation with water. The patient wears a [employer] small Veronika nasal mask without chin strap. [...] moderate chance of dozing. Rick Sargent MD [address] [place] [address], [phone], [place] [facility] [employer] 06/11/2023 08:45:56 4 text/html Primary care/Referring provider: Zak Arauz MD; Sammie Coates MD CC: My compliance rate is down as my older daughter won't go to sleep until late. During the [facility] home sleep study on 05/27/22 AHI = 8, supine AHI = 10. During the [facility] titration sleep study on 05/15/23, sleep [...] water. The patient wears a [employer] small Veronika nasal mask without chin strap. [...] chance of dozing. Rick Sargent MD [address], [facility] [address], [place], [phone], [place] [facility] [place] [facility] [facility] 08/26/2023 16:07:27 5 text/html Primary care/Referring provider: Zak Arauz MD; Sammie Coates MD CC: My compliance rate is down as I have not received my CPAP supplies. During the [facility] home sleep study on 05/27/22 AHI = 8, supine AHI = 10. During the [facility] titration sleep study on 05/15/23, sleep onset = 17 minutes, REM onset = 185.5 minutes. At home since 08/26/23, the patient uses a [employer] AirSense 11 autoset unit with heated humidification. The patient does not need the ramp to start low and go up slowly on the pressure. There is no xerostomia in a.m. There is no hose/mask condensation with water. The patient wears a [employer] small Veronika nasal mask without chin strap. [...] for an hour without a break - 1Lying down to rest in the afternoon when circumstances permit - 3Sitting and talking to someone - 0Sitting quietly after lunch without alcohol - 3In a car, while stopped for a few minutes in the traffic - 0TOTAL SCORE 16Subjectively, patient has a moderate chance of dozing. Rick Sargent MD [address] [place] [address], [phone], [facility] [employer] [facility] 09/21/2024 15:55:12 5 text/html Primary care/Referring provider: Zak Arauz MD; Qian Nye MD The patient was at [facility] ED on 10/21/24. She had generalized headache and 1-year frontal chest pain with worsening to 5/10 intensity. She had mild dyspnea, no leg pain or swelling. EKG showed NSR at 98 bpm, D-dimer = 2.71 mg/L. She was transferred to [facility] for monitoring due to previous history of miscarriage. She was told that she may need further testing for pulmonary embolism. Initial development of shortness of breath: uration of shortness of breath: 4 yearsCondition of shortness of breath: stableTiming of shortness of breath: noneFrequency: up to 3 times a dayLimits activities: yesAggravating factors: walking, humidityAlleviating factors: rest Modified Medical Research [place] (mMRC) Dyspnea Scale - Grade 2Grade 0 I only get breathless with strenuous exercise .Grade 1 I get short of breath when hurrying on the level or walking up a slight hill .Grade 2 I walk slower than people of the same age on the level because of breathlessness or have to stop for breath when walking at my own pace on the level .Grade 3 I stop for breath after walking about 100 yards or after a few minutes on the level .Grade 4 I am too breathless to leave the house or I am breathless when dressing . Treatment history: Albuterol HFA as needed since 2023. She has not needed it last week. Symbicort HFA 80/2.5 mcg as needed since 09/2024. She did not know she was supposed to use it twice daily. She only uses it once a week. Other symptoms:Drooling: noDysarthria: noNeck pain: noOdynophagia: noDysphagia: noWeak mastication: noFacial weakness: noNasal speech: noProtruding tongue: noProductive cough: yellowWheezing: noChest tightness: yesOrthopnea: 3-pillow habitFrequent throat clearing or swallowing: yesPalpitations: yesHeartburn: yesEdema: yes Environmental exposures:Nicotine smoke: 1/2 ppd 2018-present = 3.5 pack yearsPaint: noDye: noDust mites: yesMold: noDamp basement: noWood burning stove: noAnimal dander: noCockroaches: yesPollen: yesArsenic: noAsbestos: noBeryllium: noCadmium: noChromium: noCoal smoke: noDiesel fumes: noNickel: noSilica: noSoot: no CC: My daughter chewed my CPAP hose. During the [facility] home sleep study on 05/27/22 AHI = 8, supine AHI = 10. During the [facility] titration sleep study on 05/15/23, sleep onset = 17 minutes, REM onset = 185.5 minutes. At home since 08/26/23, the patient uses a ResMed AirSense 11 autoset unit with heated humidification. The patient does not need the ramp to start low and go up slowly on the pressure. There is no xerostomia in a.m. There is no hose/mask condensation with water. The patient wears a [employer] small Veronika nasal mask without chin strap. [...] AND CHANCE OF DOZINGSitting and reading - 1Watching television - 3Sitting inactive in a public place (e.g. a theater or meeting) - 1As a passenger in a car for an hour without a break - 2Lying down to rest in the afternoon when circumstances permit - 3Sitting and talking to someone - 0Sitting quietly after lunch without alcohol - 1In a car, while stopped for a few minutes in the traffic - 0TOTAL SCORE 11Subjectively, patient has a moderate chance of dozing. Rick Sargent MD [address] [place] [address], [place], [phone], [place] [facility] 10/26/2024 12:31:25 OBGyn Episode No OBEpisode recorded.
--- OUTSIDE RECORDS SUMMARY | 2024-11-20 20:29 | XMS_ITS | Clinical Summary ---
Author Organization [facility] [email or web address] Address [address] [place] [address] Care Team Providers Care Crisis Nurse Name Role Phone Unavailable Primary Care Provider Unavailabl e Source Comments [facility] [email or web address],non-owned Affiliates and Associated Physician Practices is amultiple site organization consisting of ambulatory clinics and hospital sitesin [place], [place], [place] and [place]. This disclosure is being madepursuant to the Care Everywhere program and may not contain all information available regarding this patient. Last updated 17.[employer] Allergies No known active allergies Medications * Be aware that medications may not be up to date on this document. Alwaysverify current medications with the patient. MV & Min w/FA-DHA ( GUMMIES PO) Active ferrous sulfate 325 (65 FE) MG tabletIndicatio ns:Iron Deficiency Anemia Take 1 (one) tablet by mouth once daily Reasons: Anemia From Inadequate Iron in the Body Active albuterol HFA (Proventil; Ventolin; Proair) 108 (90 Base) MCG/ACT inhaler INHALE 2 PUFFS BY MOUTH EVERY 6 HOURS NEEDED FOR SHORTNESS OF BREATH Active famotidine (Pepcid) 20 MG tablet Take 1 tablet twice a day by oral route. Active docusate sodium (Colace) 100 MG capsule Take 1 (one) capsule by mouth once daily 30 capsule 3 10/23/19 25 Active nicotine (Nicoderm CQ) 7 MG/24HR patchIndication s:Tobacco use Apply 1 (one) patch to skin once daily 30 patch 10/23/19 25 Active Additional Information Patient not taking.Reason: Patient adjusted, Reported on 10/30/2024 SUMAtriptan (Imitrex) 50 MG tablet Take 1 (one) tablet by mouth daily as needed - may repeat one time for Migraine Maximum daily dose: 200mg/24 hours 5 tablet 10/30/19 25 Active Additional Information Patient not taking.Reason: Patient adjusted, Reported on 10/30/2024 budesonide-form oterol (Symbicort) 80-4.5 MCG/ACT inhaler Inhale 2 (two) puffs by mouth 2 times daily 09/10/19 25 Active docusate sodium (Colace) 100 MG capsule Take 1 (one) capsule by mouth once daily 50 capsule 1 11/07/19 25 Active polyethylene glycol 3350 (Miralax) 17 GM/SCOOP powder Take 17 (seventeen) g by mouth once daily 119 g 11/07/19 25 Active hydrocortisone (Anusol-HC) 25 MG suppository Insert 1 (one) suppository into the rectum at bedtime 30 suppository 11/07/19 25 Active witch nadeen-glycerin (Tucks) pad Apply to affected area as needed for Dry Skin 1 Each 11/07/19 25 Active OMEPRAZOLE PO TAKE 1 CAPSULE BY MOUTH EVERY DAY FOR 30 DAYS FOR ACID REFLUX Discontinu ed(List Clean-Up) cephalexin (Keflex) 500 MG capsule TAKE 1 ORAL CAPSULE 4 TIMES A DAY X 7 DAYS 09/03/19 25 Discontinu ed(List Clean-Up) amoxicillin-cla vulanate (Augmentin) 875-125 MG tablet Take 1 (one) tablet by mouth 09/30/19 25 Discontinu ed(List Clean-Up) clindamycin (Cleocin) 300 MG capsule TAKE 1 CAPSULE BY MOUTH EVERY 6 HOURS FOR 7 DAYS 09/27/19 25 Discontinu ed(List Clean-Up) nitrofurantoin monohyd macro crystals (Macrobid) 100 MG capsule Take 1 (one) capsule by mouth 2 times daily Discontinu ed(List Clean-Up) metroNIDAZOLE (Flagyl) 500 MG tablet Take 1 (one) tablet by mouth 2 times daily for 7 days 14 tablet 11/07/19 25 Active Problems Problem Noted Date Diagnosed Date Nonintractable headache, uns pecified chronicity pattern, unspecified headache type 10/28/2024 Cardiac disease in mother af fecting , unspecified trimester 10/05/2024 Estimated Date of Delivery Comme nts Yes 01/14/2025 Based on last me nstrual period of 04/09/2024 Encounters Date Type Department Care Team Description 11/16/2024 Telephone [facility] - Pulmonology [address], [address] [place] [address] Kodi Medina MD Appointment 11/08/2024 Telephone [facility] MATERNAL/ EVALUATION UNIT [address] [place] [address] Maria Teresa Donaldson, whipped topping finisher; Scheduling 11/07/2024 2:30 PM CDT Hospital Encounter [address] [address] Deana Espinosa MD Discharge Disposition: Home or Self Care 11/07/2024 2:30 PM CDT Hospital Encounter [facility] [address] [address] Ortiz Pereira MD Peterson, Renuka E., MD Pediatric Cardiology Discharge Disposition: Home or Self Care 11/06/2024 11:35 AM CDT - 11/06/2024 2:45 PM CDT Hospital Encounter [facility] [address] [place] [id number] Jennifer Whelan MD Maternal Medicine Discharge Disposition: Home or Self Care 11/06/2024 Orders Only [facility] PHYS OB [address] [place] [address] Iasbell Powell MD 11/02/2024 Telephone [facility] MATERNAL/ EVALUATION UNIT [address] [place] [address] Maria Teresa Donaldson RN Referral 10/30/2024 1:00 PM CDT - 10/30/2024 11:59 PM CDT Hospital Encounter [facility] Maternal & Care [address] [place] [address] Prudence Etienne MD Discharge Disposition: Home or Self Care 10/28/2024 8:22 PM CDT - 10/29/2024 1:34 AM CDT Hospital Encounter [facility] [address] [place] [address] Phillip Josue MD Maternal Medicine Discharge Disposition: Home or Self Care 10/28/2024 Travel 10/22/2024 12:52 AM CDT - 10/22/2024 4:03 AM CDT Hospital Encounter [facility] [address] [place] [address] Qian Nye MD Maternal Medicine Discharge Disposition: Home or Self Care 10/22/2024 Travel 10/11/[address] [address] Chastity Sher Appointment 10/05/2024 10:32 AM CDT - 10/05/2024 11:59 PM CDT Hospital Encounter [facility] Maternal & Care [address] [place] [address] Lucretia Sorenson MD Mead, Judith A, MD Discharge Disposition: Home or Self Care 10/05/2024 10:30 AM CDT - 10/05/2024 10:31 AM CDT Hospital Encounter [facility] [address] [place] [address] Lucretia Sorenson MD Mead, Judith A, MD Discharge Disposition: Home or Self Care 09/06/2024 2:00 PM CDT - 09/06/2024 11:59 PM CDT Hospital Encounter [facility] [address] [place] [address] Ortiz Pereira MD Discharge Disposition: Home or Self Care 09/06/2024 1:00 PM CDT - 09/06/2024 1:59 PM CDT Hospital Encounter [facility] [address] [place] [address] Ortiz Pereira MD Discharge Disposition: Home or Self Care 09/06/2024 Travel from Last 3 Months Social History Tobacco Use Types Packs/Day Years Used Date Smoking Tobacco: Some Days Cigarettes Last attempted to quit: 10/15/2024 Smokeless Tobacco: Never Tobacco Cessation:Ready to Q uit: Not Asked; Counseling Given: Not Answered Alcohol Use Standard Drinks/Week Comments Not Currently 0 (1 standard drink = 0.6 oz pur e alcohol) Overall Financial Resource Strain (CARDIA) Answe r Date Recorded How hard is it for you to pa y for the very basics like food, housing, medical care, and heating? Not hard at all 11/06/2024 [facility] - Occupational Stress Questionnaire Answer Date Recorded Do you feel stress - tense, restless, nervous, or anxious, or unable to sleep at night because your mind is troubled all the time - these days? Only a little 11/06/2024 Hunger Vital Sign Answer Date Recorded Within the past 12 months, y ou worried that your food would run out before you got the money to buy more. Never true 11/07/19 25 Within the past 12 months, t he food you bought just didn't last and you didn't have money to get more. Never true 11/06/2024 PRAPARE - Transportation Answer Date Re corded In the past 12 months, has l ack of transportation kept you from medical appointments or from getting medications? No 10/10 In the past 12 months, has l ack of transportation kept you from meetings, work, or from getting things needed for daily living? No 11/06/2024 Housing Stability Vital Sign Answer Mathieu e Recorded In the last 12 months, was t here a time when you were not able to pay the mortgage or rent on time? No 11/06/2024 In the past 12 months, how m any times have you moved where you were living? 0 11/06/2024 At any time in the past 12 m [facility], were you homeless or living in a group home (including now)? 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 CLERK Gender Identity Not on file Sexual Orientation Not on file Last Filed Vital Signs Vital Sign Reading Time Taken Comments Blood Pressure 111/53 11/06/2024 2:37 PM CDT Pulse 88 11/06/2024 2:37 PM CDT Temperature 37.7 C (99.9 F) 11/06/2024 12:00 PM CDT Respiratory Rate 16 11/06/2024 12:00 PM CDT Oxygen Saturation 97% 11/06/2024 12:00 PM CDT Inhaled Oxygen Concentration - - Weight 66.7 kg (147 lb) 11/06/2024 12:02 PM CDT Height 162.6 cm (5' 4) 11/06/2024 12:02 PM CDT Body Mass Index 25.23 11/06/2024 12:02 PM CDT Plan of Treatment Upcoming Encounters Date Type Department Care Team (Latest Contact Info) Description 11/30/2024 1:45 PM CDT Hospital Encounter [facility] Maternal & Care [address] [place] [address] 01/14/2025 10:30 PM SESSIONS CLERK Hospital Encounter [facility] [address] [place] [id number] Maternal Medicine Health Maintenance Due Date Last Done Comments HPV VACCINE (1 - 3-dose series) 09/17/2015 HEPATITIS C SCREENING 09/12/2018 DTAP/TDAP/TD VACCINES (1 - Tdap) 09/17/2019 HEPATITIS B VACCINE (1 of 3 - 19+ 3-dose series) 09/17/2019 PNEUMOCOCCAL VACCINE (1 of 2 - PCV) 09/17/2019 PAP SMEAR 2021 DEPRESSION SCREENING 02/09/2024 OB-ONE HOUR GLUCOSE 10/08/2024 09/02/2020 COVID-19 VACCINE (1 - 2023-2 5 season) 2024 INFLUENZA VACCINE (#1) 2024 3, 01/08/2005 OB-TDAP CURRENT 10/15/20242022, 07/06/2012 OB-RHOGAM INJECTION 10/22/2024 Respiratory Syncytial Virus (RSV) Vaccine Pt: or over 60 yrs (1 - Risk 1-dose series) 11/19/2024 OB-GROUP B STREP SCREEN 12/10/2024 10/29/2020 CHLAMYDIA/GONORRHEA SCREENING 10/22/2025, 11/01/2022 ZOSTER VACCINE (1 of 2) 2050 HIV [...] Procedure Name Priority Date/Time Associated Diagnosis Comments IMAGING/RADIOLOGY/XRA Y RESULTS ORDER 11/07/2024 5:39 PM CDT ECHO COMPLETE CG Routine 11/07/2024 3:52 PM CDT 21 weeks gestation of (HCC) Abnormal ultrasound COMPREHENSIVE METABOLIC PANEL STAT 11/06/2024 12:45 PM CDT Cardiac disease in mother affecting , unspecified trimester (HCC) URINALYSIS REFLEX MICROSCOPIC REFLEX CULTURE STAT 11/06/2024 12:45 PM CDT Cardiac disease in mother affecting , unspecified trimester (HCC) CBC W AUTO DIFFERENTIAL STAT 11/06/2024 12:45 PM CDT Cardiac disease in mother affecting , unspecified trimester (HCC) CULTURE URINE STAT 11/06/2024 12:45 PM CDT Cardiac disease in mother affecting , unspecified trimester (HCC) SONOGRAM - COMPLETE Routine 10/30/2024 2 :05 PM CDT Cardiac disease in mother affecting , unspecified trimester (HCC) Tobacco smoking affecting , antepartum (HCC) Systolic murmur History of shoulder dystocia in prior Chronic obstructive pulmonary disease, unspecified COPD type ([facility]) Encounter for ultrasound (HCC) 29 weeks gestation of ([facility]) PROTEIN CREATININE RATIO URINE RANDOM PNL STAT 10/28/2024 9:26 PM CDT Nonintractable headache, unspecified chronicity pattern, unspecified headache type URINALYSIS REFLEX MICROSCOPIC REFLEX CULTURE STAT 10/28/2024 9:26 PM CDT Nonintractable headache, unspecified chronicity pattern, unspecified headache type COMPREHENSIVE METABOLIC PANEL STAT 10/28/2024 9:26 PM CDT Nonintractable headache, unspecified chronicity pattern, unspecified headache type CBC W AUTO DIFFERENTIAL STAT 10/28/2024 9:26 PM CDT Nonintractable headache, unspecified chronicity pattern, unspecified headache type CARDIAC EKG ORDER 10/23/2024 6:2 7 PM CDT PROTEIN CREATININE RATIO URINE RANDOM PNL STAT 10/22/2024 2:35 AM CDT Acute nonintractable headache, unspecified headache type URINALYSIS REFLEX MICROSCOPIC REFLEX CULTURE Routine 10/22/2024 2:35 AM CDT Generalized abdominal pain CHLAMYDIA AND N. GONORRHOEAE NABIL STAT 10/22/2024 2:23 AM CDT Generalized abdominal pain TRICHOMONAS VAGINALIS NABIL STAT 10/22/2024 2:23 AM CDT Generalized abdominal pain SONOGRAM - COMPLETE Routine 10/05/2024 1 0:39 AM CDT 25 weeks gestation of (HCC) Encounter for follow-up ultrasound of anatomy ([facility]) Cardiac disease in mother affecting , unspecified trimester ([facility]) Tobacco smoking affecting , antepartum ([facility]) SONOGRAM - COMPLETE Routine 09/06/2024 1 :49 PM CDT Systolic murmur History of shoulder dystocia in prior Chronic obstructive pulmonary disease, unspecified COPD type ([facility]) 21 weeks gestation of ([facility]) Abnormal ultrasound from Last 3 Months Results * IMAGING/RADIOLOGY/XRAY RESULTS ORDER (11/07/2024 5:39 PM CDT) Anatomical Region Laterality Modality Other Narrative 11/07/2024 5:39 PM CDT Ordered by an unspecified provider. us Scanned Document IMAGING Final Result * ECHO COMPLETE CG (11/07/2024 3:52 PM CDT) MV E pk cam 33.78 cm/s [facility] CV F UJI PACS MV A pk cam 50.67 cm/s [facility]SM CV F UJI PACS Anatomical Region Laterality Modality Ultrasound 11/07/2024 3:12 PM CDT Narrative 11/07/2024 4:29 PM CDT Name: Davida Juan Patient Exam Info Gender: Female Patient Status: O/P : 2000 Admit Date: 11/07/2024 Exam Date/Time: 11/07/2024 3:12 PM Site: [facility] Current Location: CARE EStaffOrdering Provider: Ortiz Pereira Optical Instrument Assembler: Ruth Holcomb [facility] Study Info Procedure: ECHO COMPLETE CG Indications: Z82.79 - Family history of congenital heart disease Maternal Gestational Status GA by EDC: 30 wks , 2 days Count: 1 EDC: 01/14/2025 Type: Pryor Age: 24 yrs Lie: Vertex Summary * Possible tiny muscular VSD. * Otherwise, the echocardiogram was within normal limits. * Small atrial and ventricular septal defects and persistent ductus arteriosus cannot be excluded as findings. Anatomic Relationships Left sided cardiac apex (levocardia). There is normal visceral-cardiac situs, and normal segmental cardiac anatomical relationship. Systemic Veins There is normal systemic venous return. Pulmonary Veins The visualized pulmonary veins drain normally to the left atrium. Right Atrium The right atrial size is normal. Left Atrium The left atrial size is normal. Atrial Septum Patent foramen ovale with open foramen flap. Color flow is right to left. Right Ventricle The right ventricular cavity size is normal. The right ventricular wall thickness is normal. The right ventricular systolic function is normal. RV Outflow Tract The right ventricular outflow tract is normal. Left Ventricle The left ventricular cavity size is normal. The left ventricular wall thickness is normal. The left ventricular systolic function is normal. Ventricular Septum There is possible tiny muscular ventricular septal defect with trivial shunting. LV Outflow Tract The left ventricular outflow tract is normal. Tricuspid Valve The tricuspid valve is structurally normal. The tricuspid inflow pattern is normal. Tricuspid velocity is within the normal range. There is no tricuspid regurgitation. Mitral Valve The mitral valve is structurally normal. The mitral inflow pattern is normal. Mitral velocity is within the normal range. There is no mitral regurgitation. Aorta aortic arch visualized and is without obstruction by 2D, color flow and Doppler. Pulmonary Arteries The main pulmonary artery is normal, with confluent branch pulmonary arteries. Ductus Arteriosus The antegrade flow velocity and pattern in the ductal arch is normal. A normal ductus arteriosus is appreciated. Doppler Flow in the ductus venosus is normal. The umbilical vein flow pattern is normal. The umbilical artery flow pattern is normal. Hydrops Assessment No pericardial effusion. No ascites present. No pleural effusion(s). Rhythm The rhythm is normal. There is 1:1 AV conduction. Pulmonary Valve The pulmonic valve is normal-sized. The transpulmonic velocity is within normal range. There is no pulmonic regurgitation. Aortic Valve The aortic valve is normal-sized. The transaortic velocity is within normal range. There is no aortic regurgitation. Doppler Measurements (Fetus A) Atrioventricular Valves Name Value Normal Z-Score Percentile Atrioventricular Valves Doppler TV E Peak Velocity 0.4 m/s TV A Peak Velocity 0.5 m/s MV E Peak Velocity 0.3 m/s MV A Peak Velocity 0.5 m/s (Fetus A) Semilunar Valves Name Value Normal Z-Score Percentile Semilunar Valves Doppler PV Peak Velocity. 0.8 m/s AV Peak Velocity () 0.8 m/s (Fetus A) Heart Rate Name Value Normal Z-Score Percentile Heart Rate Heart Rate (Doppler) 136 bpm Report Signatures Finalized by Deana Espinosa MD on 11/07/2024 04:29 PM Procedure Note Deana Espinosa MD - 11/07/2024 Name: Davida Juan Patient Exam Info Gender: Female Patient Status: O/P : 2000 Admit Date: 11/07/2024 Exam Date/Time: 11/07/2024 3:12 PM Site: [facility] Current Location: CARE EStaffOrdering Provider: Ortiz Pereira Optical Instrument Assembler: Ruth Holcomb [facility] Study Info Procedure: ECHO COMPLETE CG Indications: Z82.79 - Family history of congenital heart disease Maternal Gestational Status GA by EDC: 30 wks , 2 days Count: 1 EDC: 01/14/2025 Type: Pryor Age: 24 yrs Lie: Vertex Summary * Possible tiny muscular VSD. * Otherwise, the echocardiogram was within normal limits. * Small atrial and ventricular septal defects and persistent ductus arteriosus cannot be excluded as findings. Anatomic Relationships Left sided cardiac apex (levocardia). There is normal visceral-cardiac situs, and normal segmental cardiac anatomical relationship. Systemic Veins There is normal systemic venous return. Pulmonary Veins The visualized pulmonary veins drain normally to the left atrium. Right Atrium The right atrial size is normal. Left Atrium The left atrial size is normal. Atrial Septum Patent foramen ovale with open foramen flap. Color flow is right toleft. Right Ventricle The right ventricular cavity size is normal. The right ventricularwall thickness is normal. The right ventricular systolic function is normal. RV Outflow Tract The right ventricular outflow tract is normal. Left Ventricle The left ventricular cavity size is normal. The left ventricular wall thickness is normal. The left ventricular systolic function is normal. Ventricular Septum There is possible tiny muscular ventricular septal defect with trivial shunting. LV Outflow Tract The left ventricular outflow tract is normal. Tricuspid Valve The tricuspid valve is structurally normal. The tricuspid inflow patternis normal. Tricuspid velocity is within the normal range. There is notricuspid regurgitation. Mitral Valve The mitral valve is structurally normal. The mitral inflow pattern is normal. Mitral velocity is within the normal range. There is no mitral regurgitation. Aorta aortic arch visualized and is without obstruction by 2D, colorflow and Doppler. Pulmonary Arteries The main pulmonary artery is normal, with confluent branch pulmonary arteries. Ductus Arteriosus The antegrade flow velocity and pattern in the ductal arch is normal.A normal ductus arteriosus is appreciated. Doppler Flow in the ductus venosus is normal. The umbilical vein flow patternis normal. The umbilical artery flow pattern is normal. Hydrops Assessment No pericardial effusion. No ascites present. No pleural effusion(s). Rhythm The rhythm is normal. There is 1:1 AV conduction. Pulmonary Valve The pulmonic valve is normal-sized. The transpulmonic velocity iswithin normal range. There is no pulmonic regurgitation. Aortic Valve The aortic valve is normal-sized. The transaortic velocity is withinnormal range. There is no aortic regurgitation. Doppler Measurements (Fetus A) Atrioventricular Valves Name Value Normal Z-ScorePercentile Atrioventricular Valves Doppler TV E Peak Velocity 0.4 m/s TV A Peak Velocity 0.5 m/s MV E Peak Velocity 0.3 m/s MV A Peak Velocity 0.5 m/s (Fetus A) Semilunar Valves Name Value Normal Z-ScorePercentile Semilunar Valves Doppler PV Peak Velocity. 0.8 m/s AV Peak Velocity () 0.8 m/s (Fetus A) Heart Rate Name Value Normal Z-ScorePercentile Heart Rate Heart Rate (Doppler) 136 bpm Report Signatures Finalized by Deana Espinosa MD on 11/07/2024 04:29 PM us Ortiz Pereira MD ECHO CUPID Final Result * (ABNORMAL) URINALYSIS REFLEX MICROSCOPIC REFLEX CULTURE (11/06/2024 12:45 PM CDT) Only the most recent of3 resultswithin the time period is included. Color UA Harnett(A) Yellow, Straw 11/06/2024 1:27 PM CDT [facility] Clarity UA Ex. Turbid(A) Clear 11/06/2024 1:27 PM CDT [facility] Glucose UA Normal Normal 11/06/2024 1:27 PM CDT [facility] Bilirubin UA Negative Negative 11/06/2024 1:27 PM CDT [facility] Ketone UA Negative Negative 11/06/2024 1:27 PM CDT [facility] Specific [place] UA 1.017 1.005 - 1.030 11/06/2024 1:27 PM CDT [facility] Blood UA Negative Negative 11/06/2024 1:27 PM CDT [facility] pH UA 8.0 5.0 - 8.0 11/06/2024 1:27 PM CDT [facility] Protein UA Negative Negative 11/06/2024 1:27 PM CDT [facility] Urobilinogen UA Normal Normal mg/dL 11/06/2024 1:27 PM CDT [facility] Nitrite UA Negative Negative 11/06/2024 1:27 PM CDT [facility] Leukocyte Esterase UA 25 AMAYA/uL(A) Negative 11/06/2024 1:27 PM CDT [facility] RBC UA 3-5 0 - 5 # /hpf 11/06/2024 1:27 PM CDT [facility] WBC UA None Seen 0 - 5 # /hpf 11/06/2024 1:27 PM CDT [facility] Bacteria UA Trace(A) None Seen 11/06/2024 1:27 PM CDT [facility] Squamous Epithelial Cells 3-5 0 - 5 /hpf 11/06/2024 1:27 PM CDT [facility] Amorphous Crystals Many(A) None seen /hpf 11/06/2024 1:27 PM CDT [facility] Reflex Status Culture to follow 11/06/2024 1:27 PM CDT [facility] Urine URINE SPECIMEN OBTAINED BY CLEAN CATCH PROCEDURE / Unknown Collection / Unknown 11/06/2024 12:45 PM CDT 11/06/2024 12:55 PM CDT Chary Browning [employer] PR[employer] OPERATOR-[facility] - URINALYSIS ORDERA BLES Final Result Performing Organization Address [facility]/ZIP Co de Phone Number [facility] [address] [place] [address] * CULTURE URINE (11/06/2024 12:45 PM CDT) Pathologist [facility] Culture Urine 10,000-50,000 CFU/mL urogenital ian KARLA 11/07/2024 5:06 PM CDT [facility] Urine URINE SPECIMEN OBTAINED BY CLEAN CATCH PROCEDURE / Unknown Collection / Unknown 11/06/2024 12:45 PM CDT 11/06/2024 12:55 PM CDT Chary Browning [employer]END[employer] PR[employer] OPERATOR-[facility] - MICROBIOLOGY ORDE RABLES Final Result Performing Organization Address City/[facility] Co de Phone Number [facility] [address] [place] [address], [facility] [phone] * (ABNORMAL) CBC W AUTO DIFFERENTIAL (11/06/2024 12:45 PM CDT) Only the most recent of2 resultswithin the time period is included. WBC 8.0 4.0 - 10.7 x10E9/L 11/06/2024 12:58 PM CDT [facility] RBC Count 2.67(L) 3.90 - 5.20 x10E12/L 11/06/2024 12:58 PM CDT [facility] Hemoglobin 8.3(L) 11.9 - 15.8 g/dL 11/06/2024 12:58 PM CDT [facility] Hematocrit 24.2(L) 34.8 - 46.1 % 11/06/2024 12:58 PM CDT [facility] MCV 90.6 80.0 - 98.0 fL 11/06/2024 12:58 PM [facility] MCH 31.1 26.7 - 33.6 pg 11/06/2024 12:58 PM [facility] MCHC 34.3 31.7 - 36.3 g/dL 11/06/2024 12:58 PM [facility] RDW-CV 13.7 11.3 - 14.8 % 11/06/2024 12:58 PM [facility] Platelet Count 170 150 - 420 x10E9/L 11/06/2024 12:58 PM [facility] MPV 10.7 7.8 - 11.4 fL 11/06/2024 12:58 PM [facility] Neutrophil % 68.9 41.0 - 74.0 % 11/06/2024 12:58 PM [facility] Lymphocyte % 20.1 17.0 - 47.0 % 11/06/2024 12:58 PM [facility] Monocyte % 7.0 3.0 - 11.0 % 11/06/2024 12:58 PM [facility] Eosinophil % 1.9 0.0 - 7.0 % 11/06/2024 12:58 PM [facility] Basophil % 0.3 0.0 - 1.6 % 11/06/2024 12:58 PM [facility] Immature Granulocytes % 1.8(H) 0.0 - 1.0 % 11/06/2024 12:58 PM [facility] Neutrophil Absolute 5.49 1.60 - 7.50 x10E9/L 11/06/2024 12:58 PM [facility] Lymphocyte Absolute 1.60 1.00 - 4.40 x10E9/L 11/06/2024 12:58 PM [facility] Monocyte Absolute 0.56 0.15 - 1.00 x10E9/L 11/06/2024 12:58 PM [facility] Eosinophil Absolute 0.15 0.00 - 0.60 x10E9/L 11/06/2024 12:58 PM [facility] Basophil Absolute 0.02 0.00 - 0.13 x10E9/L 11/06/2024 12:58 PM [facility] Blood BLOOD SPECIMEN / Unknown Venipuncture / Unknown 11/06/2024 12:45 PM CDT 11/06/2024 12:55 PM CDT Chary Browning [employer]ENDER [employer] OPERATOR-[employer] LAB - HEMATOLOGY ORDERA BLES Final Result [facility] [address], [place] [id number] * (ABNORMAL) COMPREHENSIVE METABOLIC PANEL (11/06/2024 12:45 PM CDT) Only the most recent of2 resultswithin the time period is included. Glucose 97 70 - 99 mg/dL 11/06/2024 1:13 PM CDT [facility] Sodium 138 136 - 145 mmol/L 11/06/2024 1:13 PM CDT [facility] Potassium 3.5 3.5 - 5.1 mmol/L 11/06/2024 1:13 PM CDT [facility] Chloride 110(H) 98 - 107 mmol/L 11/06/2024 1:13 PM CDT [facility] CO2 22 22 - 29 mmol/L 11/06/2024 1:13 PM CDT [facility] Calcium 8.1(L) 8.4 - 10.4 mg/dL 11/06/2024 1:13 PM CDT [facility] Anion Gap 6 6 - 16 mmol/L 11/06/2024 1:13 PM CDT [facility] BUN 7 5.3 - 18.7 mg/dL 11/06/2024 1:13 PM CDT [facility] Creatinine 0.52(L) 0.57 - 1.11 mg/dL 11/06/2024 1:13 PM T [facility] Alkaline Phosphatase 68 40 - 150 U/L 11/06/2024 1:13 PM CDT [facility] ALT <6(L) 6 - 57 U/L 11/06/2024 1:13 PM CDT [facility] AST 16 10 - 48 U/L 11/06/2024 1:13 PM CDT [facility] Protein Total 5.3(L) 6.4 - 8.3 gm/dL 11/06/2024 1:13 PM CDT [facility] Albumin 2.7(L) 3.1 - 4.5 gm/dL 11/06/2024 1:13 PM CDT [facility] Bilirubin Total 0.2 0.2 - 1.2 mg/dL 11/06/2024 1:13 PM CDT [facility] eGFR by CKD-EPI >90 >=90 mL/min/1.7 3 m2 11/06/2024 1:13 PM CDT [facility] Comment:Estimated Glomerular Filtration Rate (eGFR) calculated using the CKD-EPI Creatinine Equation (2020), per the National Kidney Foundation and [place] [employer] Nephrology recommendations. Blood BLOOD SPECIMEN / Unknown Venipuncture / Unknown 11/06/2024 12:45 PM CDT 11/06/2024 12:55 PM CDT Chary Browning [employer] OPERATOR[facility] LAB - CHEMISTRY ORDERAB LES Final Result [facility] [address] [place] [address] * Sonogram - Complete (10/30/2024 2:05 PM CDT) Only the most recent of3 resultswithin the time period is included. 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 Para 2 [id number] 1. live 2020. Details: Vaginal delivery, full term 2. live 2022. Details: Vaginal delivery, full term, Shoulder dystocia weighed 9.5 lb no GDM 3. miscarriage 2023 Lab Tests Test Date Result NIPT Low risk, Male Maternal Assessment Physical Exam Height 163 cm, 5 ft 4 in. Initial weight 62 kg, 137 lb. Initial BMI 23.52 kg/m Method ====== Transabdominal ultrasound. View: Sufficient ========= Pryor . Number of fetuses: 1 Dating ====== Date Details Gest. age NENA LMP 04/09/2024 29 w + 1 d 01/14/2025 Stated NENA 29 w + 1 d 01/14/2025 U/S 10/30/2024 based upon AC, BPD, Femur, HC 30 w + 0 d 01/08/2025 Assigned dating based on the LMP, selected on 09/06/2024 29 w + 1 d 01/14/2025 General Evaluation Cardiac activity present. FHR 131 bpm. Presentation: cephalic Placenta: Placental site: anterior no previa Amniotic fluid: Amount of AF: normal. MVP 7.5 cm. PADMINI 21.7 cm. Q1 4.7 cm, Q2 5.5 cm, Q3 7.5 cm, Q4 4.1 cm Biometry BPD 75.3 mm 30w 1d 72% Hadlock HC 273.4 mm 29w 6d 37% Hadlock AC 273.0 mm 31w 3d 95% Hadlock Femur 53.5 mm 28w 3d 16% Hadlock HC / AC 1.00 Weight Calculation: EFW 1,530 g 75% Hadlock EFW (lb,oz) 3 lb 6 oz EFW by Hadlock ([id number]-PF-FL) appropriate Growth Overview Exam date GA BPD (mm) HC (mm) AC (mm) FL (mm) HL (mm) EFW (g) 09/06/2024 21w 3d 50.1 38% 194.8 52% 180 85% 36.4 45% 35.8 79% 482 80% 10/05/2024 25w 4d 63.6 47% 237.1 33% 235 95% 47.1 40% 44 64% 980 86% 10/30/2024 29w 1d 75.3 72% 273.4 37% 273 95% 53.5 16% 1530 75% Anatomy The following structures appear normal: Heart / Thorax 4-chamber view. Abdomen Stomach. Kidneys. Bladder. Abdomen other: enlarged gall bladder measuring 3.5 cm sex: male. Impression ========= Here today for interval growth ultrasound with history of macrosomia in last along with re-evaluation of the gallbladder which was enlarged and the last ultrasound. She is status post terminal cardiology appointment due to history of palpitations workup in progress had Holter monitor to be evaluated and has follow up appointment on 11/15/2024. There is no maternal history of congenital heart defect she had an echo in the past was reported as normal. She has seen Dr. Kong at [facility]. She was also previously scheduled for ECHO which is scheduled for 11/07/2024 by [facility]. Single, live, intrauterine at 29w 1d The size is appropriate for the established gestational age. The amniotic fluid volume is normal. Normal appearing anterior placenta. No major malformations were seen within the limitations of ultrasound. The anatomical survey was previously completed. gallbladder appears dilated but essentially no change from previous study. No other GI abnormalities noted. Comment ======== The biometry showing good interval growth in the estimated weight is appropriate for the gestational age. The amniotic fluid is normal and there was good movements noted. Reevaluation of the gallbladder shows essentially no change from the previous study measuring 3.5 cm (previously 3.4 cm). No other GI abnormalities were noted. M-mode: Normal sinus rhythm no pericardial nor pleural effusions noted. The previous cardiac structures showed no abnormalities. Normal 4 chamber view today. Both ultrasound and screening/testing have their limitations in detecting all congenital anomalies and chromosomal abnormalities/inh erited disorders or genetic syndromes. The above was discussed with Ms. Juan who understood all questions were answered she was reassured. She is in agreement with the management plan. She was instructed to make sure that she submits her Holter monitor for evaluation prior to her scheduled cardiology visit for 11/15/2024 she was also instructed to mentioned to them if a repeat echocardiogram will be necessary at the discretion of the Maternal medicine. Follow-up ======== Due to history of macrosomic in the last and enlarged gallbladder we recommend she would follow up ultrasound at 34 weeks and depending on those findings also determine further management. However would also recommend a follow up ultrasound in the late 3rd trimester at 38-39 weeks depending on the size at the next scheduled appointment due to the fact that she had a macrosomic with shoulder dystocia. She reports that her glucose screen has been negative. labor and preeclampsia precautions along with kick counts. Thank you for allowing us to partake in your patient's care. Coding ====== Diagnoses O99.333: Smoking (tobacco) complicating O28.3: Abnormal ultrasonic finding on screening of mother O99.413, I47.10: Diseases of the circulatory system complicating O99.333: Smoking (tobacco) complicating Procedures 47248: US Preg Uterus Follow Up [facility] [employer] PACS Anatomical Region Laterality Modality Other 10/30/2024 2:05 PM CDT us Wilmar Casas MD [facility] ORDERABLES Edited Resul t - Final * PROTEIN CREATININE RATIO URINE RANDOM PNL (10/28/2024 9:26 PM CDT) Only the most recent of2 resultswithin the time period is included. Protein Urine 10.6 <11.9 mg/dL 10/28/2024 9:48 PM CDT [facility] Creatinine Urine 89.15 mg/dL 10/28/2024 9:48 PM CDT [facility] Protein/Creatin ine Ratio Urine 0.12 10/28/2024 9:48 PM CDT [facility] Urine URINE SPECIMEN OBTAINED BY CLEAN CATCH PROCEDURE / Unknown Collection / Unknown 10/28/2024 9:26 PM CDT 10/28/2024 9:30 PM CDT us Phillip Josue MD LAB - URINE CHEMISTRY ORDERABLE S Final Result [facility] [address] [place] [address] * CARDIAC EKG ORDER (10/23/2024 6:27 PM CDT) Narrative 10/23/2024 6:27 PM CDT Ordered by an unspecified provider. us Scanned Document CARDIAC SERVICES ORDERABLES Fin al Result * TRICHOMONAS VAGINALIS NABIL (10/22/2024 2:23 AM CDT) Trichomonas by NABIL NEGATIVE NEGATIVE 10/23/2024 5:04 AM CDT [facility] Microbiology ENTIRE VAGINA / Unknown Collection / Unknown 10/22/2024 2:23 AM CDT 10/22/2024 2:47 AM CDT Narrative [facility] - 10/23/2024 5:04 AM CDT This test performed by Qualitative real-time Polymerase Chain Reaction (PCR). Qian Nye MD LAB - MICROBIOLOGY ORDERABLES Final Result [facility] [address] [place] [address], [facility] [phone] * CHLAMYDIA AND N. GONORRHOEAE NABIL (10/22/2024 2:23 AM CDT) Chlamydia by NABIL NEGATIVE NEGATIVE 10/23/2024 5:04 AM CDT [facility] Neisseria gonorrhoeae NABIL NEGATIVE NEGATIVE 10/23/2024 5:04 AM CDT [facility] Microbiology ENTIRE VAGINA / Unknown Collection / Unknown 10/22/2024 2:23 AM CDT 10/22/2024 2:47 AM CDT Narrative [facility] - 10/23/2024 5:04 AM CDT This test performed by Qualitative real-time Polymerase Chain Reaction (PCR). Qian Nye MD LAB - MICROBIOLOGY ORDERABLES Final Result [facility] [address] [place] [address], [facility] [phone] from Last [address] [place] [address] Advance Directives * Full Code (Latest Code Status on File) Date Activated Date Inactivated Comments 11/06/2024 11:55 AM 11/06/2024 3:58 PM
[2024-11-20 20:48] LABS: Add Urine Microscopic? YES; Appearance Urine Cloudy (Clear); Glucose Urine UA Trace mg/dL (Negative); Leukocyte Esterase Ur 1+ LEU/UL (Negative); Nitrate Urine Negative (Negative); Non Pathogenic Casts 0-2; Specific Grav Ur 1.028 (1.001-1.035)
--- NOTE | 2024-11-20 21:20 | PC.NURSE ---
Called Dr. Ni, update on pt, cramping, burning prior to and upon urination, lab results, no contractions, and tracing. Orders received to discharge pt with instructions to hydrate, keep next scheduled appointment with provider at [place], and when to return to a labor and delivery unit.
--- NOTE | 2024-11-20 21:48 | PC.NURSE ---
Pt discharged with instructions to hydrate, keep next scheduled appointment with provider at [place], and when to return to a labor and delivery unit, pt verbalizes understanding.
--- NOTE | 2024-11-22 08:54 | P.PNOB_ITS ---
OB - Triage/Final Diagnosis Visit Information Date of evaluation: 11/20/24 Reason for evaluation: threatened labor Comments/Additional reasons for admission: I have assessed the risk for this patient, Davida Juan, and determined that she would benefit from observation care. Evaluation Laboratory results: Laboratory Tests 11/20/24 20:38 Urine Color Dark yellow Urine Appearance Cloudy H Urine pH 8.0 Ur Specific [employer] 1.028 Urine Protein 1+ H Urine Glucose (UA) Trace H Urine Ketones Trace H Ur Blood (Man) Trace Urine Nitrate Negative Urine Bilirubin Negative Urine Urobilinogen 1.0 Leukocyte Esterase Rfl 1+ H Urine RBC 11-20 H Urine WBC 6-10 H Ur Squamous Epith Cells Moderate Urine Bacteria Rare Urine Casts 0-2
== END 2024-11-20 21:48 | disposition home or self-care (01) ==
PROVIDERS: Admitting Provider Student in an Organized Health Care Education/Training Program; Visit Provider Student in an Organized Health Care Education/Training Program
DX: O47.03 False labor before 37 completed weeks of gestation, third trimester (principal); Z3A.32 32 weeks gestation of pregnancy
CPT/HCPCS: 81001; G0378; G0379